=== PATIENT | female | born 1990 | race Caucasian/White ===

== ENCOUNTER 2022-07-11 09:15 | Outpatient (CLI) | payer OTHER, SELFPAY ==
--- OUTSIDE RECORDS SUMMARY | 2022-07-11 09:20 | XMS_ITS | Encounter Summary ---
:1990 Author Organization [facility] Address [address] [place] [address] Care Team Providers Name Role Phone Elsewhere, Pcp Primary Care Provider Unavailable Reason for Visit Reason Comments Medical Information Encounter Details Date Type Department Care Team Description 05/30/2022 Nurse Triage Department of [facility] Marylou Kim, [facility], Moustapha Snider, R.N. [facility], in [facility] [phone] [place] (Work) [address] [place] [address] Social History Tobacco Use Types Packs/Day Years Used Date Smoking Tobacco: Every Day Cigarettes 0.8 Smokeless Tobacco: Never Alcohol Use Standard Drinks/Week Comments Yes 12 (1 standard drink = 0.6 oz pure alcoh ol) Sex Assigned at Date Recorded Not on file documented as of 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 Miscellaneous Notes Telephone Encounter - Marylou Kim M.S.N., R.N. - 05/30/2022 8:24 AM CDT Chief Complaint / Reason for Call Patient is a 32 y.o. female calling regarding Medical Information. Assessment Concern: Patient seeks lab results. She is unable to get in her portal. Present for: Home cares tried: tried to use the portal, she was informed she had a new lab result Calling to request: lab results. The recommended disposition is The following information may be helpful. Patient was warm transferred to [facility] at the clinic for further assistance. The labs have not been reviewed. Informed patient the provider had not reviewed the results and notesaid would call with results. documented in 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 Plan of Treatment Not on filedocumented as of 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 Visit Diagnoses Not on filedocumented in 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 Additional Health Concerns Assessment Noted Time PHQ-9 Depression Total Score: 7 11/29/2015 11:32 AM CS T documented as of 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 Care Teams Corsets Salesperson Relationship Specialty Start Date End Date Elsewhere, Pcp PCP - General 05/29/19 documented as of 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
--- OUTSIDE RECORDS SUMMARY | 2022-07-11 09:20 | XMS_ITS | Encounter Summary ---
:1990 Author Organization [facility] Address [address] [place] [address] Care Team Providers Name Role Phone Elsewhere, Pcp Primary Care Provider Unavailable Reason for Visit Reason Comments Mass Pt reports 3 bumps in her la lety. Pt reports she noted them this am when she was shaving. Appointment Request (Routine) - Closed Specialty Diagnoses / Procedures Referred By Contact Refer red To Contact Family Medicine Referral ID Status Reason Start Date Expiration Date Visits Requ ested Visits Authorized [id number] Closed 02/03/2022 02/03/2023 1 1 Encounter Details Date Type Department Care Team Description 02/03/2022 Office Visit Urgent Care in [place]oustaphaMariam Sarah C, F olliculitis (Primary Dx); [place] Ryan OVALLESNMayurPMayur, Dermatitis Atopic [address] [place] [address] [place] [phone] [place] [address] Social History Tobacco Use Types Packs/Day Years Used Date Smoking Tobacco: Every Day Cigarettes 0.8 Smokeless Tobacco: Never Alcohol Use Standard Drinks/Week Comments Yes 12 (1 standard drink = 0.6 oz pure alcoh ol) Sex Assigned at Date Recorded Not on file documented as of 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 Last Filed Vital Signs Vital Sign Reading Time Taken Comments Blood Pressure 125/82 02/03/2022 6:27 PM CDT Pulse 98 02/03/2022 6:27 PM CDT Temperature 36.9 ??C (98.4 ??F) 02/03/2022 6:27 PM CDT Respiratory Rate 18 02/03/2022 6:27 PM CDT Oxygen Saturation - - Inhaled Oxygen Concentration - - Weight 135 kg (297 lb 9.9 oz) 02/03/2022 6:27 PM CDT Height - - Body Mass Index 48.35 11/25/2021 9:40 AM AED TRAINER documented in 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 Progress Notes Kaylene Becerra, CHARLETTE, C.N.P., D.N.P. - 02/03/2022 6:30 PM CDT SUBJECTIVE CHIEF COMPLAINT/REASON FOR VISIT: Mass (Pt reports 3 bumps in her labia. Pt reports she noted them this am when she was shaving.) HISTORY OF PRESENT ILLNESS: Yolanda Majano is a 31 y.o. female, presents to the clinic today for Chief Complaint Patient presents with ??? Mass Pt reports 3 bumps in her labia. Pt reports she noted them this am when she was shaving. Patient states she noticed 3 bumps on her labia this morning. The bumps have not been painful. She did have some discomfort when she tried to squeeze the bumps. She did not notice any drainage. She denies dysuria. No vaginal discharge. She denies any belly or back pain. She denies a history of herpes in the past. No history of genital warts. No known exposure to STD. Patient also reports a history of eczema. She gets eczema on her arms and legs. She has used triamcinolone cream in the past with good relief, she is requesting a refill. ALLERGIES: Reviewed and reconciled in the EMR under the allergies tab of today???s date. MEDICATIONS: Reviewed and reconciled in the EMR under the medications tab of today???s date. OBJECTIVE BP 125/82 Pulse 98 Temp 36.9 ??C Resp 18 Wt 135 kg LMP 12/10/2021 (Approximate) Comment: pt couldnt remember exact date. BMI 48.35 kg/m?? PHYSICAL EXAM: General: alert and oriented, no acute distress Heart: regular rate and rhythm without abnormal sounds. Lungs: clear to auscultation bilaterally. Abdomen: soft, flat; no masses, tenderness or organomegaly. Back: Denies CVA tenderness. Genitourinary: Exam done with HOLLIS Jeffries in the room to pharmacy manager. Area is shaved. External exam reveals follicular lesion present on the right labia majora, to similar appearing follicular lesions present on the left labia majora. No surrounding redness. No ulceration, no vesicles noted. Skin: Slightly erythematous flaky patches present in the antecubital spaces of the arms bilaterally. ASSESSMENT / PLAN Folliculitis Patient was reassured, lesions not consistent with sexually transmitted infection. Symptomatic treatments reviewed. Atopic dermatitis Typical eczema cares reviewed including skin hydration, avoidance irritant, and steroid cream. Triamcinolone cream was refilled. Signs and symptoms that would indicate the need for urgent/emergent/routine follow up reviewed. Follow up as indicated with questions, concerns, worsening symptoms, or problems. Patient/Family verbalize understanding of our plan and agree. documented in 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 Plan of Treatment Not on filedocumented as of 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 Visit Diagnoses Diagnosis Folliculitis - Primary Dermatitis Atopic documented in 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 Additional Health Concerns Assessment Noted Time PHQ-9 Depression Total Score: 7 11/29/2015 11:32 AM CS T documented as of 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 Care Teams Machine Operator Assistant Relationship Specialty Start Date End Date Elsewhere, Pcp PCP - General 05/29/19 documented as of 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
--- OUTSIDE RECORDS SUMMARY | 2022-07-11 09:20 | XMS_ITS | Encounter Summary ---
:1990 Author Organization [facility] Address [address] [place] [address] Care Team Providers Name Role Phone Elsewhere, Pcp Primary Care Provider Unavailable Encounter Details Date Type Department Care Team Description 02/04/2022 Admin Visit Urgent Care in [place], [place] [address] [place] [address] Social History Tobacco Use Types Packs/Day Years Used Date Smoking Tobacco: Every Day Cigarettes 0.8 Smokeless Tobacco: Never Alcohol Use Standard Drinks/Week Comments Yes 12 (1 standard drink = 0.6 oz pure alcoh ol) Sex Assigned at Date Recorded Not on file documented as of 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 Plan of Treatment Not on filedocumented as of 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 Visit Diagnoses Not on filedocumented in 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 Additional Health Concerns Infection Onset Date Last Indicated Resolved Time COVID19 Pending 02/04/2022 02/04/2022 02/04/2022 4:34 PM CDT Assessment Noted Time PHQ-9 Depression Total Score: 7 11/29/2015 11:32 AM CS T documented as of 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 Care Teams Director Of Rehabilitation Relationship Specialty Start Date End Date Elsewhere, Pcp PCP - General 05/29/19 documented as of 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
--- OUTSIDE RECORDS SUMMARY | 2022-07-11 09:20 | XMS_ITS | Encounter Summary ---
:1990 Author Organization [facility] Address [address] [place] [address] Care Team Providers Name Role Phone Elsewhere, Pcp Primary Care Provider Unavailable Reason for Visit Reason Comments Urinary Tract Infection Vaginosis, kidney pain left side. Appointment Request (Routine) - Closed Specialty Diagnoses / Procedures Referred By Contact Refer red To Contact Family Medicine Referral ID Status Reason Start Date Expiration Date Visits Requ ested Visits Authorized [id number] Closed 12/12/2021 12/12/2022 1 1 Encounter Details Date Type Department Care Team Description 12/12/2021 Office Visit Urgent Care in [place] Epstein Dys uria (Primary Dx); Marko Sue M.D. Vaginitis; [address] Frequency Urinary; [place] HAND Urgency Urina ry; [id number] Pain Flank [phone] Social History Tobacco Use Types Packs/Day Years Used Date Smoking Tobacco: Every Day Cigarettes 0.8 Smokeless Tobacco: Never Tobacco Cessation: Ready to Quit: No; Co unseling Given: Yes Alcohol Use Standard Drinks/Week Comments Yes 12 (1 standard drink = 0.6 oz pure alcoh ol) Sex Assigned at Date Recorded Not on file documented as of 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 Last Filed Vital Signs Vital Sign Reading Time Taken Comments Blood Pressure 137/81 12/12/2021 7:02 PM CDT Pulse 110 12/12/2021 7:02 PM CDT Temperature 36 ??C (96.8 ??F) 12/12/2021 7:02 PM CDT Respiratory Rate - - Oxygen Saturation 96% 12/12/2021 7:02 PM CDT Inhaled Oxygen Concentration - - Weight 135 kg (298 lb 8.1 oz) 12/12/2021 7:02 PM CDT Height - - Body Mass Index 48.49 11/25/2021 9:40 AM AIR BRUSH DECORATOR documented in 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 Progress Notes Terrell Carvajal M.D. - 12/12/2021 7:30 PM CDT SUBJECTIVE CHIEF COMPLAINT / REASON FOR VISIT Yolanda Majano is a 31 y.o. female who presents for evaluation of Urinary Tract Infection (Vaginosis, kidney pain left side./). HISTORY OF PRESENT ILLNESS The patient is a 31-year-old female who is here for concern of increased urinary urgency, frequency, left flank pain and abnormal vaginal discharge. Today, patient states that approximately 2 days ago she began to endorse increased urinary frequency, increased urinary urgency, abnormal vaginal discharge and left flank pain. The patient is sexually active with her boyfriend and had protected sex approximately 3 days ago. However, patient denies any associated fever, chills, night sweats, abdominal pain different from baseline or suprapubic tenderness. Additionally the patient denies any dysuria. The patient describes the abdomen vaginal dischargeas red in nature, however, denies any green or white abnormal vaginal discharge. The patient is able to tolerate oral food and fluids appropriately. Otherwise, normal urination and normal bowel movements. The patient has not needed anything for pain control at this time. The following portions of the patient's history were reviewed and updated as appropriate: allergies,current medications, family history, medical history, social history, surgical history and problem list. OBJECTIVE BP 137/81 (BP Location: Right arm, Patient Position: Sitting, Cuff Size: Regular) Pulse 110 Temp36 ??C (Temporal) Wt 135 kg SpO2 96% BMI 48.49 kg/m?? PHYSICAL EXAM General: Well developed, well nourished, no apparent distress. Heart: Regular rate and rhythm. Normal S1S2. No S3S4, murmurs, rubs or gallops appreciated. Lungs: Clear to auscultation bilaterally, without wheezes, rhonchi or crackles. Back: CVA tenderness present over the left side. No CVA tenderness on the right side. Abdomen: Soft, mildly tender globally. Genitalia: Normally developed genitalia with no external lesions or eruptions. Vagina and cervix show no lesions, inflammation, discharge or tenderness. Vaginitis panel swabs obtained. -female nurse present as janitorial account manager. ASSESSMENT / PLAN #1 Dysuria #2 Vaginitis #3 Frequency Urinary #4 Urgency Urinary #5 Pain Flank -Differential for the patient's symptoms include UTI, pyelonephritis, nephrolithiasis and vaginitis.Given there was no significant abnormal vaginal discharge on speculum exam higher on the differential includes UTI, pyelonephritis and nephrolithiasis. Urine studies were not yet obtained at the time of the visit and therefore will start treatment with cefdinir 300 mg b.i.d. for 10 days for suspected UTI versus pyelonephritis. -will follow-up with the urine studies, urine test as well as vaginitis panel. If the Trichomonas or bacterial vaginosis panel does come back positive would treat with a 7 day course of metronidazole. -if the urine studies come back negative for UTI or vaginitis then nephrolithiasis would be higher on the differential and would encourage increased oral fluid intake, straining for kidney stone as well as consideration of Flomax. -we will notify the patient tomorrow of the results and treat accordingly. -the patient was understanding and amenable to this plan. -in the meantime, the patient was advised to increase her oral fluid intake as well as use Tylenol and or ibuprofen for pain relief. - Urinalysis with Microscopic: Urine, Midstream; Future; Expected date: 12/12/2021 - Bacterial Culture, Aerobic + Susc, Urine; Future; Expected date: 12/12/2021 - Bacterial Culture, Aerobic + Susc, Urine - Urinalysis with Microscopic: Urine, Midstream - Test, POCT, Urine (lab) - Vaginitis Panel - Chlamydia / Gonorrhoeae Amplified RNA Other orders - cefdinir (OMNICEF) 300 mg capsule; Take 1 capsule (300 mg total) by mouth 2 (two) times a day before breakfast and dinner for 10 days., Starting [place] 12/12/2021, Until 12/22/2021, Normal documented in 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 Plan of Treatment Not on filedocumented as of 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 Procedures Procedure Name Priority Date/Time Associated Comments Diagnosis TEST, POCT, Routine 12/12/2021 7:56 PM Dysuria Results for this U (LAB) CDT procedure are i n the results section. VAGINITIS PANEL STAT 12/12/2021 7:21 PM Vaginitis Result s for this CDT procedure are i n the results section. CHLAMYDIA/GONORRHOEAE STAT 12/12/2021 7:21 PM Vaginitis Results for this AMPLIFIED RNA CDT procedure are in the results section. BACTERIAL CULTURE, STAT 12/12/2021 6:52 PM Dysuria Res ults for this AEROBIC + SUSC, URINE CDT proced ure are in the results section. URINALYSIS WITH STAT 12/12/2021 6:52 PM Dysuria Result s for this MICROSCOPIC CDT procedure are i n the results section. documented in 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 Results Test, POCT, Urine (lab) (12/12/2021 7:56 PM CDT) athologist Signature Negative 12/12/2021 CESILIA Test, POCT, U 8:08 PM CDT Specimen Anatomical Collection Method Collection Time Receive d Time (Source) Location / / Volume Laterality Urine (Urine, 12/12/2021 7:56 PM 12/13/19 7:59 Clean Catch) CDT PM CDT Terrell Carvajal M.D. LAB POCT ORDERABLES - DEVICE Performing Organization Address City/State/ZIP Code Phon e Number [facility]- [facility] [place], [place] [phone] [facility] [place] [address] [facility] [place] [facility]- [facility] [place] [phone] [place] [facility] [place] [address] Chlamydia / Gonorrhoeae Amplified RNA (12/12/2021 7:21 PM CDT) [facility] gist Method Time Signature Source Swab, Vagina 12/13/2021 MKTO 9:10 AM CDT Chlamydia Negative Negative 12/13/2021 MKTO trachomatis 9:10 AM CDT amplified RNA Source Swab, Vagina 12/13/2021 MKTO 9:10 AM CDT Neisseria Negative Negative 12/13/2021 MKTO gonorrhoeae 9:10 AM CDT amplified RNA Specimen Anatomical Collection Method Collection Time Receive d Time (Source) Location / / Volume Laterality Varies (Vagina) 12/12/2021 7:21 PM 2021 CDT 11:53 PM CDT Terrell Carvajal M.D. LAB MICROBIOLOGY - GENERAL O RDERABLES Performing Organization Address City/[facility]/ZIP Code Phon e Number [facility]- [facility] [place] [address] [place] [address] [address] Vaginitis Panel (12/12/2021 7:21 PM CDT) Patholo gist Method Time Signature Katie species, Negative Negative 12/12/2021 CESIL[place] DNA 8:44 PM CDT Gardnerella Negative Negative 12/12/2021 [place] vaginalis, DNA 8:44 PM CDT Trichomonas Negative Negative 12/12/2021 [place] vaginalis, DNA 8:44 PM CDT Specimen Anatomical Collection Method Collection Time Receive d Time (Source) Location / / Volume Laterality Swab (Vagina) 12/12/2021 7:21 PM 12/13/19 22 7:54 CDT PM CDT Terrell Carvajal M.D. LAB MICROBIOLOGY - GENERAL O ANA LAURA Performing Organization Address City/[facility]/ZIP Code Phon e Number [facility] [place] [place] [phone] [facility] [place] [address] [facility] [facility]- [place] [address] [place] [facility] [place] [address] (ABNORMAL) Bacterial Culture, Aerobic + Susc, Urine (12/12/2021 6:52 PM CDT) Analysis Performed At Patho logist Time Signature Urine Culture Mixed 12/14/2021 MKTO mary beth. (A) 8:46 AM CDT Specimen Anatomical Collection Method Collection Time Receive d Time (Source) Location / / Volume Laterality Urine (Urine, 12/12/2021 6:52 PM 12/13/19 22 Midstream) CDT 11:54 PM CDT Comment: Specimen Source Site: Urine Terrell Carvajal M.D. LAB MICROBIOLOGY - GENERAL O RDERABLES Performing Organization Address City/[facility]/ZIP Code Phon e Number [facility]- [facility] [place] [address] [place] [address] System [address] (ABNORMAL) Urinalysis with Microscopic: Urine, Midstream (12/12/2021 6:52 PM CDT) Analysis Performed At Patho logist Time Signature Source Urine, Urine, 12/12/2021 [place] Midstream 8:03 PM CDT Clarity Clear Clear 12/12/2021 [place] 8:03 PM CDT Color Yellow 12/12/2021 CESIILA 8:03 PM CDT Comment: ----REFERENCE VALUE---- Colorless Yellow Corinne Blood Trace (A) Negative 12/12/2021 8:03 PM CDT [place] Nitrite Negative Negative 12/12/2021 8:03 PM CDT [place] Leukocyte Esterase Trace (A) Negative 12/12/2021 8:03 PM CD T [place] Protein Negative mg/dL 12/12/2021 8:03 PM CDT [place] Comment: ----REFERENCE VALUE---- Negative Trace Glucose Negative Negative mg/dL 12/12/2021 8:03 PM CDT AL EA Ketone Negative Negative mg/dL 12/12/2021 8:03 PM CDT AL EA Bilirubin Negative Negative 12/12/2021 8:03 PM CDT CES[place] pH 5.0 5.0 - 8.0 12/12/2021 8:03 PM CDT [place] Specific [place] 1.020 1.001 - 1.035 12/12/2021 8:03 PM CDT [place] Urobilinogen 0.2 0.2 - 1.0 mg/dL 12/12/2021 8:03 PM CD T [place] White Blood Cells Occ-3 /hpf 12/12/2021 8:06 PM CDT [place] Comment: ----REFERENCE VALUE---- Males: 0-3 Females: 0-10 Unknown: 0-10 Red Blood Cells Occ-2 0 - 2 /hpf 12/12/2021 8:06 PM CDT C[place] Hyaline Casts 1-3 /lpf 12/12/2021 8:06 PM CDT BENJIE A Squamous Cells Occ-3 /hpf 12/12/2021 8:06 PM CDT AL EA Specimen Anatomical Collection Method Collection Time Receive d Time (Source) Location / / Volume Laterality Urine (Urine, 12/12/2021 6:52 PM 03/17/20 22 7:59 Midstream) CDT PM CDT Terrell Carvajal M.D. LAB URINE ORDERABLES Performing Organization Address City/State/ZIP Code Phon e Number [facility]- [facility] [place] [phone] [facility] [place] [address] [place] [facility]- [facility] [place] [phone] [place] [facility] [place] [address] documented in 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 Visit Diagnoses Diagnosis Dysuria - Primary Vaginitis Frequency Urinary Urgency Urinary Pain Flank documented in 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 Additional Health Concerns Assessment Noted Time PHQ-9 Depression Total Score: 7 11/29/2015 11:32 AM CS T documented as of 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 Care Teams Autocad Draftsman Relationship Specialty Start Date End Date Elsewhere, Pcp PCP - General 05/29/19 documented as of 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
--- OUTSIDE RECORDS SUMMARY | 2022-07-11 09:20 | XMS_ITS | Encounter Summary ---
:[address] [facility] Address [address] [place] [address] Care Team Providers Name Role Phone Elsewhere, Pcp Primary Care Provider Unavailable Reason for Visit Reason Comments ER Referral Colonoscopy Encounter Details Date Type Department Care Team Description 11/28/2021 Clinical Department of Viviana Nieto ER Referral; Communication Gastroenterology in [place], [place] [address] [place] [address] [place], [place] [phone] Social History Tobacco Use Types Packs/Day Years Used Date Smoking Tobacco: Every Day Cigarettes 0.8 Smokeless Tobacco: Never Alcohol Use Standard Drinks/Week Comments Yes 12 (1 standard drink = 0.6 oz pure alcoh ol) Sex Assigned at Date Recorded Not on file documented as of 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 Miscellaneous Notes Telephone Encounter - Iram Lind R.N. - 11/28/2021 9:49 AM DIRECTOR REACTOR PROJECTS Please see communication from 11/26/2021. General Surgery ED f/u was cancelled d/t this should be directed to the gastroenterology team rather than general surgery. CTOR REACTOR PROJECTS Telephone Encounter - Viviana Nieto R.N. - 11/28/2021 9:34 AM CST Message was left to schedule colonoscopy & GI follow up for Yolanda Majano. Routing to General Surgery team, I see that there was an ER follow up placed from [facility] for [facility] location. If appropriate to proceed with colonoscopy. Please order. CTOR REACTOR PROJECTS documented in 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 Plan of Treatment Not on filedocumented as of 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 Visit Diagnoses Not on filedocumented in 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 Additional Health Concerns Assessment Noted Time PHQ-9 Depression Total Score: 7 11/29/2015 11:32 AM CS T documented as of 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 Care Teams Ticket Agent Relationship Specialty Start Date End Date Elsewhere, Pcp PCP - General 05/29/19 documented as of 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
--- OUTSIDE RECORDS SUMMARY | 2022-07-11 09:20 | XMS_ITS | Encounter Summary ---
:1990 Author Organization [facility] Address [address] [place] [address] Care Team Providers Name Role Phone Elsewhere, Pcp Primary Care Provider Unavailable Encounter Details Date Type Department Care Team Description 05/29/2022 Hospital Encounter Department of Laboratory Puneet Pearl, Dysuria Medicine in [place], ROUND BONER, C.N.P. , R.N. [place] [address] [place] [address] [place], [place] [phone] Social History Tobacco Use Types Packs/Day Years Used Date Smoking Tobacco: Every Day Cigarettes 0.8 Smokeless Tobacco: Never Alcohol Use Standard Drinks/Week Comments Yes 12 (1 standard drink = 0.6 oz pure alcoh ol) Sex Assigned at Date Recorded Not on file documented as of 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 Medications at Time of Discharge Medication Sig Dispensed Refills Start Date End Date medroxyPROGESTERone (PROVERA) Take 10 mg by 0 10 mg tablet mouth once. documented as of 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 Plan of Treatment Not on filedocumented as of 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 Procedures Procedure Name Priority Date/Time Associated Comments Diagnosis BACTERIAL CULTURE, Routine 05/29/2022 8:14 PM Dysuria Res ults for this AEROBIC + SUSC, URINE CDT proced ure are in the results section. URINALYSIS WITH Routine 05/29/2022 8:14 PM Dysuria Result s for this MICROSCOPIC CDT procedure are i n the results section. documented in 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 Results (ABNORMAL) Bacterial Culture, Aerobic + Susc, Urine (05/29/2022 8:14 PM CDT) [facility] Method Time Signature Urine Culture Mixed 05/31/2022 MKTO microbiota (A) 8:30 AM CDT Specimen Anatomical Collection Method Collection Time Receive d Time (Source) Location / / Volume Laterality Urine (Urine, 05/29/2022 8:14 PM 05/30/20 22 Midstream) CDT 12:06 AM CDT Comment: Specimen Source Site: Urine Stacy Pearl APRN C.N.P., R.N. LAB MICROBIOLOGY - GEN ERAL ORDERABLES Performing Organization Address City/State/ZIP Code Phon e Number [facility]- [address] [place] [id number] [place] [address] [place] [address] (ABNORMAL) Urinalysis with Microscopic: Urine, Midstream (05/29/2022 8:14 PM CDT) Analysis Performed At Patho logist Time Signature Source Urine, Urine, 05/29/2022 AUST Midstream 8:23 PM CDT Clarity Clear Clear 05/29/2022 A[facility] 8:23 PM CDT Color Yellow 05/29/2022 AUST 8:23 PM CDT Comment: ----REFERENCE VALUE---- Colorless Yellow Corinne Blood Moderate (A) Negative 05/29/2022 8:23 PM CDT A[facility] Nitrite Negative Negative 05/29/2022 8:23 PM CDT [facility] Leukocyte Esterase Negative Negative 05/29/2022 8:23 PM CD T [facility] Protein Negative mg/dL 05/29/2022 8:23 PM CDT [facility] Comment: ----REFERENCE VALUE---- Negative Trace Glucose Negative Negative mg/dL 05/29/2022 8:[address] Ketone Negative Negative mg/dL 05/29/2022 8:[address] Bilirubin Negative Negative 05/29/2022 8:23 PM CDT [facility] pH 5.5 5.0 - 8.0 05/29/2022 8:23 PM CDT [facility] Specific [place] 1.021 1.001 - 1.035 05/29/2022 8:23 PM CDT [facility] Urobilinogen 0.2 0.2 - 1.0 mg/dL 05/29/2022 8:23 PM CD T AUST White Blood Cells Occ-3 /hpf 05/29/2022 8:25 PM CDT AUST Comment: ----REFERENCE VALUE---- Males: 0-3 Females: 0-10 Unknown: 0-10 Red Blood Cells Occ-2 0 - 2 /hpf 05/29/2022 8:25 PM CDT AUST Hyaline Casts 1-3 /lpf 05/29/2022 8:25 PM CDT AUS T Squamous Cells Occ-3 /hpf 05/29/2022 8:[address] Specimen Anatomical Collection Method Collection Time Receive d Time (Source) Location / / Volume Laterality Urine (Urine, 05/29/2022 8:14 PM 05/29/20 8:16 Midstream) CDT PM CDT Stacy Pearl APRN C.N.P., R.N. LAB URINE ORDERABLES Performing Organization Address City/State/ZIP Code Phon e Number [facility] [address] [place] [address] [facility] [place] [facility] - [place], [place] [id number] [place] [address] documented in 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 Visit Diagnoses Diagnosis Dysuria documented in 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 Additional Health Concerns Assessment Noted Time PHQ-9 Depression Total Score: 7 11/29/2015 11:32 AM CS T documented as of 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 Care Teams Automatic Drilling Machine Operator Relationship Specialty Start Date End Date Elsewhere, Pcp PCP - General 05/29/19 documented as of 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
--- OUTSIDE RECORDS SUMMARY | 2022-07-11 09:20 | XMS_ITS | Clinical Summary ---
:1990 Author Organization [facility] Address [address] [place] [address] Care Team Providers Name Role Phone Elsewhere, Pcp Primary Care Provider Unavailable Source Comments Patient records contain information from all sites at [facility]. For routine questions regarding patient records, call [phone] during business hours, M-F 8:00 AM - 5:00 PM Central Time. Record requests for emergency care only can be directed to [phone] at any time.[facility] Allergies Active Allergy Reactions Severity Noted Date Comments Citalopram Other (see comments) Medium 06/28/2020 Makes s uicidal thoughts increa se House Dust Mite Itching Medium 06/28/2020 Nitrofurantoin Hives High 06/28/2020 Monohyd/M-Cryst Naproxen Hives Low 06/28/2020 Medications Medication Sig Dispensed Refills Start Date End Date Status triamcinolone (KENALOG) Apply 1 60 g 0 02/03/2022 Active 0.1 % cream application topically 2 (two) times a day for 10 days. medroxyPROGESTERone Take 10 mg by 0 05/19/2022 Active (PROVERA) 10 mg tablet mouth once. metroNIDAZOLE (FLAGYL) Take 1 tablet 14 tablet 0 05/30/2022 Active 500 mg tablet (500 mg total) by mouth 2 (two) times a day. Active Problems Problem Noted Date Alcohol Moderate Or Severe Use Disorder (Dependence) U ncomplicated 06/20/2020 Depression 06/09/2019 Hip Joint Disorder Left 02/25/2018 Sprain Hip Initial Left 02/25/2018 Borderline Personality Disorder 01/27/2018 Depression Major Recurrent Moderate 08/06/2017 Lumbago With Sciatica Left Side 07/16/2017 Other Intervertebral Disc Displacement Lumbar Region 1 Other Symptoms And Signs Involving The Musculoskeletal System 07/16/2017 Anxiety Generalized Disorder 07/09/2017 Attention Deficit With Hyperactivity Disorder 11/02/19 13 Overview: ADHD - Attention deficit disorder with h yperactivity Resolved Problems Problem Noted Date Resolved Date Depression Major Recurrent 11/02/2012 11/01/2021 Overview: Depressive disorder, major, recurrent ep isode Encounters Date Type Specialty Care Team Description 06/06/2022 Clinical Family Medicine Stacy Pearl, Communicat ion; Communication CHARLETTE, C.N.P., Results R.N. 05/30/2022 Orders Only Family Medicine Rosmeary White, CHARLETTE, C.N.P., M.S.N. 05/30/2022 Clinical Family Medicine Elsewhere, Pcp Communication 05/30/2022 Nurse Triage Family Medicine Marylou Kim, Medical Information M.S.N., R.N. 05/29/2022 Office Visit Family Medicine Stacy Pearl, Dysuria (P rimary Dx); CHARLETTE, C.N.P., Bleeding Vagin al R.N. Blanca Malin, P.A.-C. 05/29/2022 Hospital Encounter Laboratory Stacy Pearl, Dysuria Medicine CHARLETTE, C.N.P., R.N. 05/29/2022 Nurse Triage Family Medicine Juanita Vance Urinary P roblem; M, R.N. Vaginal Dischar ge from Last 3 Months Immunizations Name Administration Dates Next Due 4vHPV (discontinued) 03/21/2014, 11/04/2013, 09/01/2013 DTaP (Infanrix, [employer]) 06/16/1997, 05/16/1993, 01/11/1993 , 1992, 1992 HepA Adult 11/04/2013 HepB, Unspecified 01/11/1993, 1992, 1992 Hib (HbOC) (discontinued) 01/11/1993, 1992, 1992 Influenza, Unspecified 07/09/2009, 08/04/2008, 09/05/2003 MMR 05/28/1998, 12/06/1993 OPV 06/16/1997, 06/16/1993, 1992, 1992 Td (Adult), adsorbed 05/09/2005 Td Preservative Free (TENIVAC, 03/25/2013 DECAVAC) Tdap 10/14/2012 Family History Medical History Relation Name Comments Breast cancer Aunt Paternal Hypertension Father Cancer Grandmother 1 Paternal Cancer Grandmother 2 Maternal Cervical cancer Mother Depression Mother Relation Name Status Comments Aunt Paternal Father Grandmother 1 Paternal Grandmother 2 Maternal Mother Social History Tobacco Use Types Packs/Day Years Used Date Smoking Tobacco: Every Day Cigarettes 0.8 Smokeless Tobacco: Never Tobacco Cessation: Ready to Quit: No; Co unseling Given: Yes Alcohol Use Standard Drinks/Week Comments Yes 12 (1 standard drink = 0.6 oz pure alcoh ol) Sex Assigned at Date Recorded Not on file Last Filed Vital Signs Vital Sign Reading Time Taken Comments Blood Pressure 127/84 05/29/2022 7:31 PM CDT Pulse 94 05/29/2022 7:31 PM CDT Temperature 36.2 ??C (97.2 ??F) 05/29/2022 7:31 PM CDT Respiratory Rate 18 02/03/2022 6:27 PM CDT Oxygen Saturation 96% 12/12/2021 7:02 PM CDT Inhaled Oxygen Concentration - - Weight 129 kg (283 lb 8.2 oz) 05/29/2022 7:31 PM CDT Height 167.1 cm (5' 5.79) 11/25/2021 9:40 AM MANAGER HYDRAULIC Body Mass Index 46.06 11/25/2021 9:40 AM MANAGER HYDRAULIC Plan of Treatment Health Maintenance Due Date Last Done Comments HIV Screening 1992 Hepatitis C Screening 1992 COVID-19 Vaccine (#1) 1992 Pneumococcal vaccine (0-64 years) 1998 (1 - PCV) Cervical Cancer Screening 11/19/2020 11/19/2017 (Performed elsewhere), 11/04/2013 Depression Screening (Annual 09/28/2021 PHQ-2) Influenza Vaccine (#1) 2022 07/09/2009, 07/09/2009, 07/09/2009, Additional history exists Tobacco Cessation counseling 12/12/2022 12/12/2021 DTaP,Tdap,and Td Vaccines (8 - Td 03/25/2023 03/25/2013, , or Tdap) 05/09/2005, Additional history exists Hepatitis B Vaccines Completed 01/11/1993, 1992, 1992 Procedures Procedure Name Priority Date/Time Associated Comments Diagnosis VAGINITIS PANEL Routine 05/29/2022 9:09 PM Bleeding Vaginal Re sults for this CDT procedure are i n the results section. URINALYSIS WITH Routine 05/29/2022 8:14 PM Dysuria Result s for this MICROSCOPIC CDT procedure are i n the results section. BACTERIAL CULTURE, Routine 05/29/2022 8:14 PM Dysuria Res ults for this AEROBIC + SUSC, URINE CDT proced ure are in the results section. CHLAMYDIA/GONORRHOEAE Routine 05/29/2022 7:59 PM Bleeding Vagi nal Results for this AMPLIFIED RNA CDT procedure are in the results section. from Last 3 Months Results (ABNORMAL) Vaginitis Panel (05/29/2022 9:09 PM CDT) Monitor Backlinks Method Time Signature Katie Negative Negative 05/29/2022 AUST species, DNA 10:02 PM CDT Gardnerella Positive (A) Negative 05/29/2022 AUST vaginalis, DNA 10:02 PM CDT Trichomonas Negative Negative 05/29/2022 AUST vaginalis, DNA 10:02 PM CDT Specimen Anatomical Collection Method Collection Time Receive d Time (Source) Location / / Volume Laterality Swab (Vagina) 05/29/2022 9:09 PM 05/29/20 9:09 CDT PM CDT Stacy Pearl APRN, C.N.P., R.N. LAB MICROBIOLOGY - GEN ERAL ORDERABLES Performing Organization Address City/State/ZIP Code Phon e Number [facility]- [address] [place] [address] [facility] [place] [address] [facility] [address] (ABNORMAL) Bacterial Culture, Aerobic + Susc, Urine (05/29/2022 8:14 PM CDT) Monitor Backlinks Method Time Signature Urine Culture Mixed 05/31/2022 MKTO microbiota (A) 8:30 AM CDT Specimen Anatomical Collection Method Collection Time Receive d Time (Source) Location / / Volume Laterality Urine (Urine, 05/29/2022 8:14 PM 05/30/20 22 Midstream) CDT 12:06 AM CDT Comment: Specimen Source Site: Urine Stacy Pacheco Dae OVALLES C.N.P., R.N. LAB MICROBIOLOGY - GEN ERAL ORDERABLES Performing Organization Address City/State/ZIP Code Phon e Number [facility]- [address] [place] [id number] [facility] [address] System in [place] [address] [place] [address] (ABNORMAL) Urinalysis with Microscopic: Urine, Midstream (05/29/2022 8:14 PM CDT) Analysis [facility]formed At [facility] Time Signature Source Urine, Urine, 05/29/2022 AUST [...] 8.0 05/29/2022 8:23 PM CDT AUST Specific [place] 1.021 1.001 - 1.035 05/29/2022 8:23 PM [...] 8:16 Midstream) CDT PM CDT Stacy Pearl APRN, Brenden.N.P., R.N. LAB URINE ORDERABLES Performing Organization Address City/[facility]/ZIP Code Phon e Number [facility]- [address] [place] [address] [facility] [place], [place] [id number] [place] [address] Chlamydia / Gonorrhoeae Amplified RNA (05/29/2022 7:59 PM CDT) [facility] Method Time Signature Source Swab, Vagina 05/30/2022 MKTO 10:19 AM CDT Chlamydia Negative Negative 05/30/2022 MKTO trachomatis 10:19 AM CDT amplified RNA Source Swab, Vagina 05/30/2022 MKTO 10:20 AM CDT Neisseria Negative Negative 05/30/2022 MKTO gonorrhoeae 10:20 AM CDT amplified RNA Specimen Anatomical Collection Method Collection Time Receive d Time (Source) Location / / Volume Laterality Varies (Vagina) 05/29/2022 7:59 PM 2021 CDT 12:06 AM CDT Stacy Pearl APRN, Brenden.N.P., R.N. LAB MICROBIOLOGY - GEN ERAL ORDERABLES Performing Organization Address City/[facility]/ZIP Code Phon e Number [facility]- [address] [place] [id number] [place] [address] from Last 3 Months Insurance Payer Benefit Plan / Subscriber ID Effective Phone Address T ype Group Dates [employer] TRA[employer] [id number] 2017-Pre [address] Indemn ity INSURANCE INSURANCE sent [id number] [place] [address] [facility] [id number] 2022-Pres [address] Medicaid HMO HEALTH [place] CARE ent [address] [place] [id number] Care Teams Global Marketing Intern Relationship Specialty Start Date End Date Elsewhere, Pcp PCP - General 05/29/19
--- OUTSIDE RECORDS SUMMARY | 2022-07-11 09:20 | XMS_ITS | Encounter Summary ---
:1990 Author Organization [facility] Address [address] [place] [address] Care Team Providers Name Role Phone Elsewhere, Pcp Primary Care Provider Unavailable Reason for Visit Reason Comments Abdominal Pain Constipation Encounter Details Date Type Department Care Team Description 11/28/2021 Nurse Triage NURSE TRIAGE Eva Banegas, Abdomin al Pain; R.N. Constipation [address] [place] [address] (Wo rk) Social History Tobacco Use Types Packs/Day Years Used Date Smoking Tobacco: Every Day Cigarettes 0.8 Smokeless Tobacco: Never Alcohol Use Standard Drinks/Week Comments Yes 12 (1 standard drink = 0.6 oz pure alcoh ol) Sex Assigned at Date Recorded Not on file documented as of 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 Miscellaneous Notes Telephone Encounter - Eva Banegas, R.N. - 11/28/2021 8:46 AM CST Chief Complaint / Reason for Call Patient is a 31 y.o. female calling regarding Abdominal Pain and Constipation. Assessment Concern: Reports sever left lower abdominal pain for 2 weeks ago and diarrhea. Now constipated and last BM 4 daws ago. Has headaches, dizziness, nausea and vomiting. Has been seen a couple times for this. Did a CT and is due for an ultra sound tomorrow in [place]. Also a colonoscopy ordered for Moustapha or Bobby Irving but not scheduled. Negative covid 11/25 He reports 8/10 abdominal pain. yesterday. Denies fever Present for: 2 weeks Home cares tried: Has not tried anything for constipation since had diarrhea and then the abdominal pain has been since before any bowel changes. Calling to request: Follow up appointment The recommended disposition is See a health care provider within 4 hours. Patient was warm transferred to [place] at the clinic for further assistance. Reason for Disposition ??? [1] Vomiting AND [2] abdomen looks much more swollen than usual Protocols used: ABDOMINAL PAIN - [id number] Care Advice Patient/Caregiver understands and will follow care advice?: Yes, able to teach back NOTHING BY MOUTH: * Do not eat or drink anything for now. REST: * Lie down and rest. * Do this until seen. CALL BACK IF: * You become worse. IRATORY MANAGER documented in 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 Plan of Treatment Not on filedocumented as of 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 Visit Diagnoses Not on filedocumented in 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 Additional Health Concerns Assessment Noted Time PHQ-9 Depression Total Score: 7 11/29/2015 11:32 AM CS T documented as of 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 Care Teams Political Research Scientist Relationship Specialty Start Date End Date Elsewhere, Pcp PCP - General 05/29/19 documented as of 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
--- OUTSIDE RECORDS SUMMARY | 2022-07-11 09:20 | XMS_ITS | Encounter Summary ---
:1990 Author Organization [facility] Address [address] [place] [address] Care Team Providers Name Role Phone Elsewhere, Pcp Primary Care Provider Unavailable Reason for Visit Reason Comments Urinary Tract Infection Vaginitis/Bacterial Vaginosis COVID Nurse Line Encounter Details Date Type Department Care Team Description 12/12/2021 Nurse Triage Department of [facility] Soniya Cervantes, [facility] Clinic, in [place], [facility] [address] [facility] Vaginitis/Bacterial [place], [place] Vaginosis; COVID Nurse [address] [place] [phone] [place] [address] [phone] Social History Tobacco Use Types Packs/Day Years Used Date Smoking Tobacco: Every Day Cigarettes 0.8 Smokeless Tobacco: Never Alcohol Use Standard Drinks/Week Comments Yes 12 (1 standard drink = 0.6 oz pure alcoh ol) Sex Assigned at Date Recorded Not on file documented as of 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 Miscellaneous Notes Telephone Encounter - Soniya Cervantes, RMayurN. - 12/12/2021 4:39 PM CDT Chief Complaint / Reason for Call Patient is a 31 y.o. female calling regarding Urinary Tract Infection, Vaginitis/Bacterial Vaginosis, and COVID Nurse Line. Assessment Concern: Vaginal discharge with a red tinge and slight odor. Patient also says her urine is dark in color and she has intermittent left flank pain. Denies burning with urination, frequency or urgency. Denies fever. Present for: 2 days Home cares tried: None Calling to request: Recommendations The recommended disposition is See a health care provider within 24 hours. Patient was warm transferred to [facility] at the clinic for further assistance. Reason for Disposition ??? Side (flank) or lower back pain present Protocols used: URINARY [id number] Care Advice Patient/Caregiver understands and will follow care advice?: Yes, able to teach back CARE ADVICE given per Urinary Symptoms (Adult) guideline. SEE PCP WITHIN 24 HOURS: PAIN MEDICINES: * For pain relief, you can take either acetaminophen, ibuprofen, or naproxen. * They are dbbz-pog-tmprckn (OTC) pain drugs. You can buy them at the drugstore. * ACETAMINOPHEN - REGULAR STRENGTH TYLENOL: Take 650 mg (two 325 mg pills) by mouth every 4 to 6 hours as needed. Each Regular Strength Tylenol pill has 325 mg of acetaminophen. The most you should take each day is 3,250 mg (10 pills a day). * ACETAMINOPHEN - EXTRA STRENGTH TYLENOL: Take 1,000 mg (two 500 mg pills) every 8 hours as needed. Each Extra Strength Tylenol pill has 500 mg of acetaminophen. The most you should take each day is 3,000 mg (6 pills a day). * IBUPROFEN (E.G., MOTRIN, ADVIL): Take 400 mg (two 200 mg pills) by mouth every 6 hours. The most you should take each day is 1,200 mg (six 200 mg pills), unless your doctor has told you to take more. * NAPROXEN (E.G., ALEVE): Take 220 mg (one 220 mg pill) by mouth every 8 to 12 hours as needed. You may take 440 mg (two 220 mg pills) for your first dose. The most you should take each day is 660 mg (three 220 mg pills a day), unless your doctor has told you to take more. PAIN MEDICINES - EXTRA NOTES AND WARNINGS: * Use the lowest amount of medicine that makes your pain better. * Acetaminophen is thought to be safer than ibuprofen or naproxen in people over 65 years old. Acetaminophen is in many OTC and prescription medicines. It might be in more than one medicine that you are taking. You need to be careful and not take an overdose. An acetaminophen overdose can hurt the liver. * [employer], the company that makes Tylenol, has different dosage instructions for Tylenol in [place] and the [place]. In [place], the maximum recommended dose per day is 4,000 mg or twelve Regular-Strength (325 mg) pills. In the [place], the maximum dose per day is ten Regular-Strength (325 mg) pills. * [employer], the company that makes Aleve, has different dosage instructions for Aleve in [place] and [place]. In [place], the maximum recommended dose per day is 440 mg (2 pills or caplets). In the [place], the maximum dose per day is 660 mg (3 pills or caplets). * CAUTION: Do not take acetaminophen if you have liver disease. * CAUTION: Do not take ibuprofen or naproxen if you have stomach problems, kidney disease, are , or have been told by your doctor to avoid this type of anti-inflammatory drug. Do not take ibuprofen or naproxen for more than 7 days without consulting your doctor. * Before taking any medicine, read all the instructions on the package. CALL BACK IF: * Fever occurs * Unable to urinate and bladder feels full * You become worse. COVID-19 Nurse Line Screening ASSESSMENT Initial Screening Pathway Select appropriate pathway: : Adult In the last 48 hours, have you had a fever* OR symptoms that are unrelated to a preexisting illness?: No symptoms noted (Continue Screening) COVID Asymptomatic Screening Have you had close contact* with a person who has tested positive with COVID-19 in the past 14 days?: No (Continue Screening) Have you tested positive for COVID-19 in the last 90 days?: No (Continue Screening) Have you been advised to undergo testing or are you requesting testing?: No, testing for COVID-19 isnot indicated (End Screening) Testing Recommendation Endpoint Is testing recommended? : Not recommended to test Further Triage Needs Any further triage needs? : Yes, transferring for appointment scheduling assistance. PLAN Endpoint recommendation: Testing not indicated at this time Standard Care Points -Get a COVID -19 vaccine as soon as you can if not fully vaccinated. -Wash hands frequently with soap and water, use hand biomedical equipment tech if soap and water aren't available. -Wear a mask over your nose and mouth to help protect yourself and others if not fully vaccinated and having no symptoms -Stay 6 feet between yourself and others who don't live with you. -Avoid crowds and poorly ventilated indoor spaces. -Seek emergent care if any of the following occur Trouble breathing Bluish lips or face Persistent pain or pressure in the chest New confusion or inability to rouse. -Notify your regular care provider of any new or worsening symptoms. Asymptomatic without exposure Carepoints: Testing is not recommended at this time. If you become symptomatic, please call back for additional screening. Education: Patient/caregiver able to teach back Patient agreeable to plan of care: Yes The following references were used: [facility] novel coronavirus (COVID- 19) resources Nursing judgement documented in 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 Plan of Treatment Not on filedocumented as of 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 Visit Diagnoses Not on filedocumented in 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 Additional Health Concerns Assessment Noted Time PHQ-9 Depression Total Score: 7 11/29/2015 11:32 AM CS T documented as of 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 Care Teams Heavy Equipment Technician Relationship Specialty Start Date End Date Elsewhere, Pcp PCP - General 05/29/19 documented as of 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
--- OUTSIDE RECORDS SUMMARY | 2022-07-11 09:20 | XMS_ITS | Encounter Summary ---
:1990 Author Organization [facility] Address [address] [place] [address] Care Team Providers Name Role Phone Elsewhere, Pcp Primary Care Provider Unavailable Reason for Visit Reason Comments uti symptoms Appointment Request (Routine) - Closed Specialty Diagnoses / Procedures Referred By Contact Refer red To Contact Family Medicine Referral ID Status Reason Start Date Expiration Date Visits Requ ested Visits Authorized [id number] Closed 05/29/2022 05/29/2023 1 1 Encounter Details Date Type Department Care Team Description 05/29/2022 Office Visit Department of Family Stacy Pearl, CHARLETTE, C.N.P., R.N. [address] [place] [id number] Dysuria (Primary Dx); Medicine, [place] Blanca Malin, P.A.-C. [address] [place] [id number] [facility], in [place], [place] [address] [place] [address] Social History Tobacco Use Types Packs/Day Years [...] ??F) 05/29/2022 7:31 PM CDT Respiratory Rate - - Oxygen Saturation - - Inhaled Oxygen Concentration - - Weight 129 kg (283 lb 8.2 oz) 05/29/2022 7:31 PM CDT Height - - Body Mass Index 46.06 11/25/2021 9:40 AM MILK RUNNER documented in 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 Progress Notes Stacy Pearl APRN, C.N.P., R.N. - 05/29/2022 7:30 PM CDT SUBJECTIVE CHIEF COMPLAINT Yolanda Majano is a 32 y.o. female who presents to the clinic for dysuria, pelvic discomfort. HISTORY OF PRESENT ILLNESS 32-year-old female presents today for evaluation of dysuria, pressure and pain in the pelvic area, abnormal vaginal bleeding. States she is currently on Provera, this was started because she had such heavy periods. States she was on Depo injections from age 16 up until the last year, she is not sure if the pelvic pressure and pain she is currently having is due to the abnormal vaginal bleeding, or ifit is normal period pain. She also has noted vaginal odor, no unusual vaginal discharge or itching. No lesions. Denies any fever chills. Does have history of UTIs and bacterial vaginosis. Also requesting testing for gonorrhea and chlamydia. Partner is not having any symptoms but she wants to be safe. The following portions of the patient's history were reviewed and updated as appropriate: allergies,current medications, family history, medical history, social history, surgical history and problem list. Allergies Allergen Reactions Macrobid [Nitrofurantoin Monohyd/M-Cryst] Hives Celexa [Citalopram] Other (see comments) Makes suicidal thoughts increase House Dust Mite Itching Naproxen Hives Constitutional: - Negative for fever. Genitourinary: Positive for abnormal vaginal bleeding and pain with urination. All other systems reviewed and are negative. OBJECTIVE Vitals: 05/29/22 193 BP: 127/84 Patient Position: Sitting Pulse: 94 Temp: 36.2 ??C Weight: 129 kg TempSrc: Temporal Body mass index is 46.06 kg/m??. Vitals reviewed. Exam conducted with a surveillance analyst present. Constitutional General: She is not in acute distress. Appearance: Normal appearance. Abdominal Tenderness: There is no abdominal tenderness. There is no right CVA tenderness or left CVA tenderness. Genitourinary Exam position: Lithotomy position. Vagina: Vaginal discharge present. Uterus: Normal. Adnexa: Right adnexa normal and left adnexa normal. Comments: Small amount of blood in the vaginal vault. Skin General: Skin is warm and dry. Neurological Mental Status: She is alert. ASSESSMENT / PLAN #1 Dysuria #2 Bleeding Vaginal Collected swabs for vaginitis panel and GC chlamydia. Also ordered UA with urine culture. Results will be called when available and patient will be treated accordingly. All questions were answered. MEDICATION CHANGES TODAY: New Medications Ordered This Visit Medications medroxyPROGESTERone (PROVERA) 10 mg tablet Sig: Take 10 mg by mouth once. There are no discontinued medications. Ready to learn, no apparent learning barriers were identified; learning preferences include listening. Explained diagnosis and treatment plan; patient/child/newspaper library manager expressed understanding of the content. documented in 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 Plan of Treatment Not on filedocumented as of 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 Procedures Procedure Name Priority Date/Time Associated Diagnosis Comme nts VAGINITIS PANEL Routine 05/29/2022 9:09 PM Bleeding Vaginal Re sults for this CDT procedure are i n the results section. CHLAMYDIA/GONORRHOE Routine 05/29/2022 7:59 PM Bleeding Vagina l Results for this AE AMPLIFIED RNA CDT procedure a re in the results section. documented in 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 Results (ABNORMAL) Vaginitis Panel (05/29/2022 9:09 PM CDT) [facility] gist Method Time Signature Katie Negative Negative 05/29/2022 [...] Organization Address City/State/ZIP Code Phon e Number [facility]- [address] [place] [address] [facility] [place] [address] [facility] [address] (ABNORMAL) Bacterial Culture, Aerobic + Susc, Urine (05/29/2022 8:14 PM CDT) [facility] Method Time Signature Urine Culture Mixed 05/31/2022 [facility] microbiota (A) 8:30 AM CDT Specimen Anatomical Collection Method Collection Time Receive d Time (Source) Location / / Volume Laterality Urine (Urine, 05/29/2022 8:14 PM 05/30/20 22 Midstream) CDT 12:06 AM CDT Comment: Specimen Source Site: Urine Ryan Seo APRNNPatel, R.N. LAB MICROBIOLOGY - GEN ERAL ORDERABLES Performing Organization Address City/[facility]/ZIP [facility] [place] Phon e Number [facility]- [address] [place] [address] [place] [address] System in [place] [address] [place] [address] (ABNORMAL) Urinalysis with Microscopic: Urine, Midstream (05/29/2022 8:14 PM CDT) Analysis Performed At [facility] logist Time Signature Source Urine, Urine, 05/29/2022 [...] 05/29/2022 8:23 PM CDT AUST Specific [place] 1.021 1.001 - 1.035 05/29/2022 8:23 PM [...] Midstream) CDT PM CDT Stacy Pearl APRN, C.N.P., R.N. LAB URINE ORDERABLES Performing Organization Address City/State/ZIP Code Phon e Number [facility]- [address] [place], [place] [id number] [place] [address] LAB AUST [place] [facility] - [place], [place] [id number] [place] [address] Chlamydia / Gonorrhoeae Amplified RNA (05/29/2022 7:59 PM CDT) [facility] gist Method Time Signature Source Swab, Vagina 05/30/2022 [...] CDT 12:06 AM CDT Stacy Pearl APRN, C.N.P., R.N. LAB MICROBIOLOGY - GEN ERAL ORDERABLES Performing Organization Address City/State/ZIP Code Phon e Number [facility]- [address] [place] [address] [place] [address] System in [place] [address] [facility] documented in 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 Visit Diagnoses Diagnosis Dysuria - Primary Bleeding Vaginal documented in 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 Additional Health Concerns Assessment Noted Time PHQ-9 Depression Total Score: 7 11/29/2015 11:32 AM CS T documented as of 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 Care Teams Manager Float Relationship Specialty Start Date End Date Elsewhere, Pcp PCP - General 05/29/19 documented as of 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
--- OUTSIDE RECORDS SUMMARY | 2022-07-11 09:20 | XMS_ITS | Encounter Summary ---
:1990 Author Organization [facility] Address [address] [place] [address] Care Team Providers Name Role Phone Elsewhere, Pcp Primary Care Provider Unavailable Reason for Visit Reason Comments Mass Encounter Details Date Type Department Care Team Description 02/03/2022 Nurse Triage Department of [facility] Eric Vance R.N. [facility] Medicine, [facility], (Wo rk) in [place], [place] [address] [place] [address] Social History Tobacco Use Types Packs/Day Years Used Date Smoking Tobacco: Every Day Cigarettes 0.8 Smokeless Tobacco: Never Alcohol Use Standard Drinks/Week Comments Yes 12 (1 standard drink = 0.6 oz pure alcoh ol) Sex Assigned at Date Recorded Not on file documented as of 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 Miscellaneous Notes Telephone Encounter - Juanita Vance, R.N. - 02/03/2022 12:24 PM CDT COVID-19 Nurse Line Screening ASSESSMENT Initial Screening [...] undergo testing or are you requesting testing?: Yes, COVID-19 testing is indicated (End Screening) Testing Recommendation Endpoint Is testing recommended? : Recommended to test Further Triage Needs Any further triage needs? : No further concerns noted. PLAN Endpoint recommendation: Per patient request, testing indicated for Other, sent to [facility] [place] located at [address] An appointment is required for testing, please call [phone] Thursday-Thursday 7am to 7:30pm and Thursday & Thursday 9am to 4pm to schedule an appointment. Testing hours areMon-Thu & Thu 8am-4:30pm and Thu & 8am-12pm. You can also schedule via your Patient [employer] account., Please avoid using public transportation per CDC recommendation. If you do nothave personal transportation please self-quarantine until a personal transportation option is available. Standard Care Points -Get a COVID -19 vaccine as soon as you can if not fully vaccinated. -Wash hands frequently with soap and water, use hand chief port director if soap and water aren't available. -Wear [...] or worsening symptoms. Asymptomatic without exposure Carepoints: If your COVID-19 result is negative and you become symptomatic consider retesting after 72 hours. Education: Patient/caregiver able to teach back Patient agreeable to plan of care: Yes The following references were used: [facility] novel coronavirus (COVID- 19) resources Telephone Encounter - Juanita Vance R.N. - 02/03/2022 12:13 PM CDT Chief Complaint / Reason for Call Patient is a 31 y.o. female calling regarding Mass. Assessment Concern: Patient experience three lump on vulva area. The lumps are painful rating 2/10 constant.Patient unsure if area has redness. No itchiness noted. No change in vaginal discharge. Present for: 02/03/22 Home cares tried: Clean area. Calling to request: Appointment The recommended disposition is See a health care provider within 3 days. Patient was warm transferred to [facility] at the clinic for further assistance. Reason for Disposition ??? Tender lump (swelling or ball) at vaginal opening Protocols used: VULVAR [id number]-[id number]-MV Care Advice Patient/Caregiver understands and will follow care advice?: Yes, able to teach back SEE PCP WITHIN 24 HOURS: * IF OFFICE WILL BE OPEN: You need to be examined within the next 24 hours. Call your doctor (or WHEEL PRESSER/PA) when the office opens and make an appointment. * IF OFFICE WILL BE CLOSED: You need to be seen within the next 24 hours. A clinic or an urgent carecenter is often a good source of care if your doctor's office is closed or you can't get an appointment. * IF PATIENT HAS NO PCP: Refer patient to a clinic or urgent care center. Also try to help caller find a PCP for future care. NOTE TO TRIAGER: * Use nurse judgment to select the most appropriate source of care. * Consider both the urgency of the patient's symptoms AND what resources may be needed to evaluate and manage the patient. PAIN MEDICINES: * For pain relief, you can take either acetaminophen, ibuprofen, or naproxen. * They are avbx-uku-mmzrlxu (OTC) pain drugs. You can buy them [...] doctor has told you to take more. CALL BACK IF: * Severe pain occurs * Fever occurs * You become worse. CARE ADVICE given per Skin Swelling or Lump (Adult) guideline. PAIN MEDICINES - EXTRA NOTES AND WARNINGS: [...] acetaminophen overdose can hurt the liver. * [employer], the company that makes Tylenol, has different dosage instructions for Tylenol in [place] and the [place]. In [place], the maximum recommended dose per day is 4,000 mg or twelve Regular-Strength (325 mg) pills. In the [place], the maximum dose per day is ten Regular-Strength (325 mg) pills. * [employer], the company that makes Aleve, has different dosage instructions for Aleve in [place] [facility]. In [place], the maximum recommended dose per day is 440 mg (2 pills or caplets). In the [place], the maximum dose per day is [...] read all the instructions on the package. documented in 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 Plan of Treatment Not on filedocumented as of 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 Visit Diagnoses Not on filedocumented in 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 Additional Health Concerns Assessment Noted Time PHQ-9 Depression Total Score: 7 11/29/2015 11:32 AM CS T documented as of 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 Care Teams Medical Laboratory Assistant Relationship Specialty Start Date End Date Elsewhere, Pcp PCP - General 05/29/19 documented as of 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
--- OUTSIDE RECORDS SUMMARY | 2022-07-11 09:20 | XMS_ITS | Encounter Summary ---
:1990 Author Organization [facility] Address [address] [place] [address] Care Team Providers Name Role Phone Elsewhere, Pcp Primary Care Provider Unavailable Reason for Visit Reason Comments Urinary Problem Vaginal Discharge Encounter Details Date Type Department Care Team Description 05/29/2022 Nurse Triage Department of Family Juanita Vance U rinary Problem; Medicine, [facility], in [place], [place] [address] [place] [address] Social History Tobacco Use Types Packs/Day Years Used Date Smoking Tobacco: Every Day Cigarettes 0.8 Smokeless Tobacco: Never Alcohol Use Standard Drinks/Week Comments Yes 12 (1 standard drink = 0.6 oz pure alcoh ol) Sex Assigned at Date Recorded Not on file documented as of 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 Miscellaneous Notes Telephone Encounter - Juanita Vance, R.N. - 05/29/2022 4:49 PM CDT Chief Complaint / Reason for Call Patient is a 32 y.o. female calling regarding Urinary Problem and Vaginal Discharge. Assessment Concern: Patient worried about possible UTI and STD. Patient having lower pelvic pain when urinatingon and off rating 3/10. Along with foul smelling vaginal discharge and consistency. No fever or flank pain noted. Present for: 05/28/22 Home cares tried: fluids, rest Calling to request: appointment The recommended disposition is See a health care provider within 24 hours. Patient was warm transferred to [place] at the clinic for further assistance. Reason for Disposition Unusual vaginal discharge (e.g., bad smelling, yellow, green, or foamy-white) Protocols used: Urination Pain - Qjlbno-GOEMG-ML Care Advice Patient/Caregiver understands and will follow care advice?: Yes, able to teach back SEE PCP WITHIN 24 HOURS: * IF OFFICE WILL BE OPEN: You need to be examined within the next 24 hours. Call your doctor (or RED HAT LINUX ENGINEER/PA) when the office opens and make an [...] needed to evaluate and manage the patient. AVOID SEXUAL INTERCOURSE: * Avoid sexual intercourse or be sure to use a condom until the problem has been diagnosed and treated. DRINK EXTRA FLUIDS: * Drink extra fluids. * Drink 8 to 10 cups (1,800 to 2,400 ml) of liquids a day. * Reason: This will water-down your urine and make it less painful to pass. If there is an infection, this will help wash out the germs from your bladder. DRINK EXTRA FLUIDS - EXTRA NOTES AND WARNINGS: * Increased fluid intake may be contraindicated in adults with renal failure or heart failure. * Discuss with your doctor (or RED HAT LINUX ENGINEER/PA). WARM SALINE SITZ BATHS - TWICE DAILY FOR URINATION PAIN: * Sit in a warm sitz bath for 20 minutes twice a day. This will decrease pain and irritation, keep the area clean, and help with healing. * Afterwards, pat area dry with unscented toilet paper. WARM SALINE SITZ BATH - HOW TO MAKE A SITZ BATH: * Here is how you can make a saline sitz bath. * Fill the tub with warm water until it is 3 to 4 inches (7 to 10 cm) deep. * Add 1/4 cup (80 g) of table salt or baking soda to a tub of warm water. Stir the water until it dissolves. TEST, WHEN IN DOUBT: * If there is a chance that you might be , use a urine test. * You can buy a test at the [employer]. * It works best if you test your first urine in the morning. * Call back if you are . * Follow the instructions included in the package. CALL BACK IF: * Fever or back pain occurs * You become worse CARE ADVICE given per Urination Pain - Female (Adult) guideline. documented in 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 Plan of Treatment Not on filedocumented as of 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 Visit Diagnoses Not on filedocumented in 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 Additional Health Concerns Assessment Noted Time PHQ-9 Depression Total Score: 7 11/29/2015 11:32 AM CS T documented as of 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 Care Teams Medical Center Manager Relationship Specialty Start Date End Date Elsewhere, Pcp PCP - General 05/29/19 documented as of 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
--- OUTSIDE RECORDS SUMMARY | 2022-07-11 09:20 | XMS_ITS | Encounter Summary ---
:1990 Author Organization [facility] Address [address] [place] [address] Care Team Providers Name Role Phone Elsewhere, Pcp Primary Care Provider Unavailable Encounter Details Date Type Department Care Team Description 05/30/2022 Orders Only Department of Family Rosemary White AP RN, Medicine, [facility], in [place], [place] [address] [place] [address] [place] [address] [place] [address] [phone] Social History Tobacco Use Types Packs/Day Years [...] documented as of 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 Care Teams Orchid Transplanter Relationship Specialty Start Date End Date Elsewhere, Pcp PCP - General 05/29/19 documented as of 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
--- OUTSIDE RECORDS SUMMARY | 2022-07-11 09:20 | XMS_ITS | Encounter Summary ---
:1990 Author Organization [facility] Address [address] [place] [address] Care Team Providers Name Role Phone Elsewhere, Pcp Primary Care Provider Unavailable Reason for Visit Reason Onset Date Comments Outpatient COVID-19 Testing 02/04/2022 Encounter Details Date Type Department Care Team Description 02/04/2022 External Outreach Department of Delfino Zamora Contact With And Orthopedic Surgery Álvaro LMayurPMayurNMayur (Suspected) Exposure in [place], [place] [address] [place] To COVID-19 (Primary [address] [place], [place] Dx) [place] [phone] Social History Tobacco Use Types Packs/Day Years Used Date Smoking Tobacco: Every Day Cigarettes 0.8 Smokeless Tobacco: Never Alcohol Use Standard Drinks/Week Comments Yes 12 (1 standard drink = 0.6 oz pure alcoh ol) Sex Assigned at Date Recorded Not on file documented as of 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 Progress Notes Delfino Zamora L.PDacia. - 02/04/2022 1:41 PM CDT Encounter created for COVID-19 screening. documented in 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 Plan of Treatment Not on filedocumented as of 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 Procedures Procedure Name Priority Date/Time Associated Comments Diagnosis SARS CORONAVIRUS 2, Routine 02/04/2022 4:10 PM Re sults for this PCR, V CDT procedure are i n the results section. documented in 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 Results SARS Coronavirus 2, PCR, V (02/04/2022 4:10 PM CDT) [facility] Method Time Signature SARS-Coronavi Undetected Undetected 02/04/2022 [facility] jeanie-2, PCR 5:30 PM CDT Comment: SARS-CoV-2 RNA absent. ?? ----ADDITIONAL INFORMATION---- This RT-PCR test using the Xpert Xpress SARS-CoV-2/Flu/RSV assay ([employer] performed on the [employer] rt DX systems has received Emergency Use Authorization (EU A) by the U.S. Food and Drug Administration. Performanc e characteristics were verified by [facility] inic in a manner consistent with CLIA requirements . Fact sheets for this Emergency Use Autho rization (EUA) assay can be found at the following link s: For Healthcare Providers: https://www.fda.gov/media/619894/downloa d For Patients: https://www.fda.gov/media/355375/downloa d Specimen Source Nasopharyngeal Swab 02/04/2022 4:3 3 PM CDT [facility] Specimen Anatomical Collection Method Collection Time Receive d Time (Source) Location / / Volume Laterality Varies 02/04/2022 4:10 PM 4:33 CDT PM CDT Stacy Pearl APRN C.N.P., R.N. LAB MICROBIOLOGY - GEN ERAL ORDERABLES Performing Organization Address City/State/ZIP Code Phon e Number [facility]- [address] [place] [address] [place] [facility] [place], [place] [phone] [place] [address] documented in 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 Visit Diagnoses Diagnosis Contact With And (Suspected) Exposure To COVID-19 - Primary documented in 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 Additional Health Concerns Infection Onset Date Last Indicated Resolved Time COVID19 Pending 02/04/2022 02/04/2022 02/04/2022 4:34 PM CDT COVID19 Pending 02/04/2022 02/04/2022 02/04/2022 5:30 PM CDT Assessment Noted Time PHQ-9 Depression Total Score: 7 11/29/2015 11:32 AM CS T documented as of 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 Care Teams Department Head College Or University Relationship Specialty Start Date End Date Elsewhere, Pcp PCP - General 05/29/19 documented as of 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
--- OUTSIDE RECORDS SUMMARY | 2022-07-11 09:20 | XMS_ITS | Encounter Summary ---
:1990 Author Organization [facility] Address [address] [place] [address] Care Team Providers Name Role Phone Elsewhere, Pcp Primary Care Provider Unavailable Encounter Details Date Type Department Care Team Description 11/26/2021 Clinical Communication Division of Trauma Preschedulin g, Critical Care and Provider General Surgery in [place], [place] [address] [place] [phone] Social History Tobacco Use Types Packs/Day Years Used Date Smoking Tobacco: Every Day Cigarettes 0.8 Smokeless Tobacco: Never Alcohol Use Standard Drinks/Week Comments Yes 12 (1 standard drink = 0.6 oz pure alcoh ol) Sex Assigned at Date Recorded Not on file documented as of 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 Miscellaneous Notes Telephone Encounter - Melva Hemphill - 11/26/2021 7:[address] Paul, A POST ED VISIT was ordered and sent to the Trauma Critical Care/General Surgery queue for this patient who possibly needs a colonoscopy and work up for inflammatory bowel disease. This was ordered [facility] so couldn't be used for scheduling in [place]. Also this should be directed to Gas troenterology rather than General Surgery. Can you please reissue an order and send to GI? Thank youvery much! EMIC GUIDANCE SPECIALIST documented in 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 Plan of Treatment Not on filedocumented as of 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 Visit Diagnoses Not on filedocumented in 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 Additional Health Concerns Assessment Noted Time PHQ-9 Depression Total Score: 7 11/29/2015 11:32 AM CS T documented as of 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 Care Teams Ribbon Blockmaker Relationship Specialty Start Date End Date Elsewhere, Pcp PCP - General 05/29/19 documented as of 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
--- OUTSIDE RECORDS SUMMARY | 2022-07-11 09:21 | XMS_ITS | Encounter Summary ---
:1990 Author Organization [facility] Address [address] [place] [address] Care Team Providers Name Role Phone Elsewhere, Pcp Primary Care Provider Unavailable Reason for Visit Reason Comments Communication Questions Encounter Details Date Type Department Care Team Description 10/17/2021 Clinical Department of Flor Mcdonald Communication Obstetrics and Alize Sanz (Questions) Gynecology in [phone] [place], (Work) [address] [address] Social History Tobacco Use Types Packs/Day Years Used Date Smoking Tobacco: Every Day Smokeless Tobacco: Never Alcohol Use Standard Drinks/Week Comments Yes 30 (1 standard drink = 0.6 oz pure drink s 10- 16 ounce cans of beer alcohol) 2-3 days a week Alcohol Habits Answer Date Recorded How often do you have a drink Not asked containing alcohol? How many drinks containing alcohol do Not asked you have on a typical day when you are drinking? How often do you have six or more Not asked drinks on one occasion? Comment: drinks 10- 16 ounce cans of beer 020 2-3 days a week Sex Assigned at Date Recorded Not on file documented as of 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 Miscellaneous Notes Telephone Encounter - Flor Mcdonald R.N. - 10/17/2021 12:55 PM CST SUBJECTIVE CHIEF COMPLAINT / REASON FOR CALL Communication (Questions) ASSESSMENT Patient calling in with some questions. She reports having taken Depo since age 16. She was supposedto get the Depo shot in April 2021, but never got it. She wants to know if she can still get even without getting her period. I advised, that yes she can. She has not started her cycle since stopping Depo. Patient has not taken a test. Discussed she should take one and call us backif it is positive. Patient also has not had annual exam in a couple years. Advised patient she could get transferred to scheduling to set up an appointment. She declines at this time because she doesnot have insurance. She is going to file for insurance and call back to be seen. She will also call back if she gets a positive test. PLAN Patient will call back to set up appointments as needed Disposition/Recommendation: self-care is appropriate at this time, patient encouraged to call back with questions. Information/Education: patient/caller able to teach back. Caller agreeable to plan of care: yes. The following references were used: nursing clinical judgement. ROOM SUPERVISOR documented in 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 Plan of Treatment Not on filedocumented as of 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 Visit Diagnoses Not on filedocumented in 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 Additional Health Concerns Assessment Noted Time PHQ-9 Depression Total Score: 7 11/29/2015 11:32 AM CS T documented as of 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 Care Teams Outside Laborer Relationship Specialty Start Date End Date Elsewhere, Pcp PCP - General 05/29/19 documented as of 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
--- OUTSIDE RECORDS SUMMARY | 2022-07-11 09:21 | XMS_ITS | Encounter Summary ---
:1990 Author Organization [facility] Address [address] [place] [address] Care Team Providers Name Role Phone Unavailable Primary Care Provider Unavailable Encounter Details Date Type Department Care Team Description 10/09/2014 Hospital Encounter HX [facility] Fiona Mcconnell, P.AMayur [address] [place] [address] [place] [address] (Wo rk) Social History Tobacco Use Types Packs/Day Years Used Date Smoking Tobacco: Never Assessed Sex Assigned at Date Recorded Not on file documented as of 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 Last Filed Vital Signs Vital Sign Reading Time Taken Comments Blood Pressure - - Pulse - - Temperature - - Respiratory Rate - - Oxygen Saturation - - Inhaled Oxygen Concentration - - Weight - - Height 164 cm (5' 4.57) 10/09/2014 2:16 PM VULCANIZING MACHINE OPERATOR Body Mass Index - - documented in 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 Miscellaneous Notes Miscellaneous - Joan Chambers - 10/09/2014 4:08 PM CST Results Notification Document Contains Addenda Addendum by EDWARDO ROBLES LPN on 09 October 2014 16:39:43 VULCANIZING MACHINE OPERATOR LMTCB From: JOAN CHAMBERS PA-C To: ALEXANDR Chambers Nurse; Sent: 10/09/2014 16:08:16 VULCANIZING MACHINE OPERATOR ! Show up: 10/09/2014 16:08:16 VULCANIZING MACHINE OPERATOR Subject: Results Notification Actions: Notify patient of results Reminder Comments: Negative test. Results: Date Result Name Value Ref Range 10/09/2014 14:21 Beta hCG Qnt <0.50 mIU/mL ( - <=25.00) Source: [facility] POWERCHART Document Id: [id number] Electronically signed by Conversion, [facility] Switch Foreman [id number] at 02/22/2017 9:17 PM CDT documented in 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 Plan of Treatment Not on filedocumented as of 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 Procedures Procedure Name Priority Date/Time Associated Diagnosis Comme nts BHCG (BETA-HUMAN Routine 10/09/2014 2:21 PM Resul ts for this CHORIONIC VULCANIZING MACHINE OPERATOR procedure are i n GONADOTROPIN), the results ERVIN, S section. documented in 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 Results bHCG (Beta-Human Chorionic Gonadotropin), Quantitative (10/09/2014 2:21 PM VULCANIZING MACHINE OPERATOR) P athologist Signature Beta-HCG, <0.50 <=25.00 POWERCHART Quantitative, S MIUML Specimen (Source) Anatomical Collection Method Collection Time Re ceived Time Location / / Volume Laterality Blood 10/09/2014 2:21 PM VULCANIZING MACHINE OPERATOR [facility] BLOOD ADD-ON Performing Organization Address City/State/ZIP Code Phon e Number POWERCHART documented in 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 Visit Diagnoses Not on filedocumented in 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 Additional Health Concerns Assessment Noted Time PHQ-9 Depression Total Score: 3 10/05/2014 11:20 AM CS T documented as of 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
--- OUTSIDE RECORDS SUMMARY | 2022-07-11 09:21 | XMS_ITS | Encounter Summary ---
:1990 Author Organization [facility] Address [address] [place] [address] Care Team Providers Name Role Phone Unavailable Primary Care Provider Unavailable Encounter Details Date Type Department Care Team Description 10/06/2014 Hospital Encounter [facility]X [facility] Joan Grant, Tracie [address] [place] [address] [place] [address] (Wo rk) Social History Tobacco Use Types [...] - - Height 164 cm (5' 4.57) 10/06/2014 9:06 AM AV SPECIALIST Body Mass Index - - documented in 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 Miscellaneous Notes Miscellaneous - Joan Chambers - 10/09/2014 6:41 PM CST Results Notification Document Contains Addenda Addendum by JOAN CHAMBERS PA-C on 10 October 2014 08:22:57 AV SPECIALIST From: JOAN CHAMBERS PA-C To: ALEXANDR Chambers Nurse; Sent: 10/10/2014 08:22:57 AV SPECIALIST Show up: 10/10/2014 08:22:00 AV SPECIALIST Subject: RE: Results Notification Spoke with Yolanda via phone this morning. She is interested in consult with General Surgery in [place], as advised by radiology, for further evaluation of her breast pain. Order is in and she will schedule. From: JOAN CHAMBERS PA-C To: ALEXANDR Chambers Nurse; JOAN CHAMBERS PA-C; Sent: 10/09/2014 18:41:28 AV SPECIALIST ! Show up: 10/09/2014 18:41:28 AV SPECIALIST Subject: Results Notification Actions: Notify patient of results Reminder Comments: Left VM asking patient to call back. Would like to discuss results. Results: Date Result Type Result Name 10/06/2014 10:42 Radiology US Breast Right Source: [facility] POWERCHART Document Id: [id number] Electronically signed by Conversion, [facility] Tutor [id number] at 02/22/2017 9:17 PM CDT documented in 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 Plan of Treatment Not on filedocumented as of 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 Procedures Procedure Name Priority Date/Time Associated Comments Diagnosis BI ULTRASOUND BREAST Routine 10/06/2014 9:15 AM R esults for this FOCUSED RIGHT AV SPECIALIST procedure are in the results section. documented in 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 Results BI Ultrasound Breast Focused Right (10/06/2014 9:15 AM AV SPECIALIST) Anatomical Region Laterality Modality Breast Right Ultrasound Specimen (Source) Anatomical Collection Method Collection Time Re ceived Time Location / / Volume Laterality 10/06/2014 9:15 AM AV SPECIALIST Impressions 10/06/2014 10:39 AM AV SPECIALIST ??Please refer to digital diagnostic mammogram report generated October 06, 2014 for further di scussion, recommendations and BI-RADS assessment. BIRADS Narrative 10/06/2014 10:39 AM AV SPECIALIST EXAM: ??US Breast Right AGE: ??24 years old. GENDER: ??Female. INDICATION: ??Right lateral breast and a xillary swelling and pain, intermittent. ??Ongoing for 3 months. No discrete mass. Denies skin changes. Denies nipple discharge. COMPARISON: ?? NOTE: After completion of the right breast ultrasound which did not demonstrate any sonographi c findings to explain patient's current clinical symptoms, christina gnostic evaluation was also performed of the right breast, including 2 views of the left breast for baseline and reference for detection of asymmetry. FINDINGS: Ultrasound evaluation of the e ntire right breast and right axilla. No sonographic findings for ruddy gnancy throughout the right breast or right axilla. Please refer to digital diagnostic mammo gram report generated October 06, 2014 for further discussion, recommen dations and BI-RADS assessment. Procedure Note Steve Dias M.D. / Provider, Jay dickens M.D. - 02/04/2017 EXAM: US Breast Right AGE: [age] years old. GENDER: Female. INDICATION: Right lateral breast and axi llary swelling and pain, intermittent. Ongoing for 3 months. No d iscrete mass. Denies skin changes. Denies nipple discharge. COMPARISON: NOTE: After completion of th e right breast ultrasound which did not demonstrate any sonographi c findings to explain patient's current clinical symptoms, christina gnostic evaluation was also performed of the right breast, including 2 views of the left breast for baseline and reference for detection of asymmetry. FINDINGS: Ultrasound evaluation of the e ntire right breast and right axilla. No sonographic findings for ruddy gnancy throughout the right breast or right axilla. Please refer to digital diagnostic mammo gram report generated October 06, 2014 for further discussion, recommen dations and BI-RADS assessment. IMPRESSION: Please refer to digital diag nostic mammogram report generated October 06, 2014 for further di scussion, recommendations and BI-RADS assessment. BIRADS Vandana Obrien R.V.T., RKatieMMayurS. IMG BI PROCEDURES documented in 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 Visit Diagnoses Not on filedocumented in 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 Additional Health Concerns Assessment Noted Time PHQ-9 Depression Total Score: 3 10/05/2014 11:20 AM CS T documented as of 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
--- OUTSIDE RECORDS SUMMARY | 2022-07-11 09:21 | XMS_ITS | Encounter Summary ---
:1990 Author Organization [facility] Address [address] [place] [address] Care Team Providers Name Role Phone Unavailable Primary Care Provider Unavailable Encounter Details Date Type Department Care Team Description 10/06/2014 Hospital Encounter HX [facility] Tierney Beltran, PMichele [address] [place] [address] [place] [address] (Wo rk) Social History Tobacco Use Types [...] - Height 164 cm (5' 4.57) 10/06/2014 9:34 AM CONVENTION SERVICES DIRECTOR Body Mass Index - - documented in 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 Miscellaneous Notes Miscellaneous - Joan Chambers - 10/06/2014 10:18 AM CST Work Excuse 06 October 2014 YOLANDA LEONE [address] [facility] [id number] Dear YOLANDA READ, You were examined in my office on: 10/04/2014 Reason for work excuse: Medical Illness ( x ) Yes ( _ ) No Injury ( _ ) Yes ( _ ) No Is excused from all work: ( _ ) Yes ( _ ) No Has work limitations: ( _ ) Yes ( _ ) No As follows: _ Limitations apply until: _ Follow-Up Appointment : ( _ ) Return to Work date: _ Notes: Please excuse Yolanda from work on 10/04/2014 due to illness. Sincerely, JOAN CHAMBERS [address], [place] [address] Electronic Signature Electronically Signed By: JOAN CHAMBERS PA-C On: 06 October 2014 This document has images extracted. Source: [facility] POWERCHART Document Id: [id number] Electronically signed by Conversion, [facility] Account Technician [id number] at 02/22/2017 9:17 PM CDT documented in 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 Plan of Treatment Not on filedocumented as of 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 Procedures Procedure Name Priority Date/Time Associated Comments Diagnosis BI BREAST DIAGNOSTIC Routine 10/06/2014 10:05 AM Results for this BILATERAL WITH CONVENTION SERVICES DIRECTOR procedure are in COMPUTER AIDED the results DETECTION section. documented in 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 Results BI Breast Diagnostic Bilateral with Computer Aided Detection (10/06/2014 10:05 AM CONVENTION SERVICES DIRECTOR) Anatomical Region Laterality Modality Breast Bilateral Mammography Specimen (Source) Anatomical Collection Method Collection Time Re ceived Time Location / / Volume Laterality 10/06/2014 10:05 AM CONVENTION SERVICES DIRECTOR Impressions 10/06/2014 1:46 PM CONVENTION SERVICES DIRECTOR CODE: 3-PROBABLY BENIGN Appropriate letter sent. Full field digital mammography is used a nd Computer Aided Detection is performed on the digital mammogram im ages. Narrative 10/06/2014 1:46 PM CONVENTION SERVICES DIRECTOR EXAM: MA Mammo Diag Bilat w/ CADD INDICATION: Right lateral breast and axi llary swelling and pain, intermittent. ??Ongoing for 3 months. COMPARISON: Baseline area NOTE: After completion of the right cathy st ultrasound which did not demonstrate any sonographic findings to explain patient's current clinical symptoms, diagnostic evaluation was also performed of the right breast, including 2 views of the l eft breast for baseline and reference for detection of asymmetry. FINDINGS: Scattered fibroglandular densi ties both breasts. Slight area of asymmetry within the uppe r, outer middle/posterior depth of the right breast, as this repre sents patient's baseline evaluation, determination of stability c annot be verified. Likely represents normal anatomic variation. To confirm stability, recommend 6 month followup diagnostic evaluation o f the right breast. In the interim recommend surgical consultation regarding management of the area of pain/no discrete mass right c[address]. Presuming no change in the plan after surgical consultation, 6 month followup evaluation will be scheduled by the radiology Depar tment. FINDINGS: Ultrasound evaluation of the e ntire right breast and right axilla. No sonographic findings for ruddy gnancy throughout the right breast or right axilla. Please refer to digital diagnostic mammo gram report generated October 06, 2014 for further discussion, recommen dations and BI-RADS assessment. Results discussed with patient. Procedure Note Steve Dias M.D. / Provider, Jay dickens M.D. - 02/04/2017 EXAM: MA Mammo Diag Bilat w/ CADD INDICATION: Right lateral breast and axi llary swelling and pain, intermittent. Ongoing for 3 months. COMPARISON: Baseline area NOTE: After completion of the right cathy st ultrasound which did not demonstrate any sonographic findings to explain patient's current clinical symptoms, diagnostic evaluation was also performed of the right breast, including 2 views of the l eft breast for baseline and reference for detection of asymmetry. FINDINGS: Scattered fibroglandular densi ties both breasts. Slight area of asymmetry within the uppe r, outer middle/posterior depth of the right breast, as this repre sents patient's baseline evaluation, determination of stability c annot be verified. Likely represents normal anatomic variation. To confirm stability, recommend 6 month followup diagnostic evaluation o f the right breast. In the interim recommend surgical consultation regarding management of the area of pain/no discrete mass right c[address]. Presuming no change in the plan after surgical consultation, 6 month followup evaluation will be scheduled by the radiology Depar tment. FINDINGS: Ultrasound evaluation of the e ntire right breast and right axilla. No sonographic findings for ruddy gnancy throughout the right breast or right axilla. Please refer to digital diagnostic mammo gram report generated October 06, 2014 for further discussion, recommen dations and BI-RADS assessment. Results discussed with patient. IMPRESSION: CODE: 3-PROBABLY BENIGN Appropriate letter sent. Full field digital mammography is used a nd Computer Aided Detection is performed on the digital mammogram im ages. Jessica GreyTMayur(R), R.T.(R)(M) IMG BI PROCEDUR ES documented in 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 Visit Diagnoses Not on filedocumented in 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 Additional Health Concerns Assessment Noted Time PHQ-9 Depression Total Score: 3 10/05/2014 11:20 AM CS T documented as of 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
--- OUTSIDE RECORDS SUMMARY | 2022-07-11 09:21 | XMS_ITS | Encounter Summary ---
:1990 Author Organization [facility] Address [address] [place] [address] Care Team Providers Name Role Phone Elsewhere, Pcp Primary Care Provider Unavailable Encounter Details Date Type Department Care Team Description 11/01/2021 Orders Only Urgent Care in [place] Kim L, APR N, [place] C.N.P., R.N. [address] [place] [address] [place] [address] [place] [id number] (Wo rk) Social History Tobacco Use Types Packs/Day Years Used Date Smoking Tobacco: Every Day Cigarettes 0.8 Smokeless Tobacco: Never Alcohol Use Standard Drinks/Week Comments Yes 4 (1 standard drink = 0.6 oz pure alcoho l) every other week Alcohol Habits Answer Date Recorded How often do you have a drink containing alcohol? Not asked How many drinks containing alcohol do you have on a Not aske d typical day when you are drinking? How often do you have six or more drinks on one Not asked occasion? Comment: every other week 11/01/2021 Sex Assigned at Date Recorded Not on file documented as of 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 Plan of Treatment Not on filedocumented as of 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 Visit Diagnoses Not on filedocumented in 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 Additional Health Concerns Assessment Noted Time PHQ-9 Depression Total Score: 7 11/29/2015 11:32 AM CS T documented as of 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 Care Teams Stringer Machine Tender Relationship Specialty Start Date End Date Elsewhere, Pcp PCP - General 05/29/19 documented as of 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
--- OUTSIDE RECORDS SUMMARY | 2022-07-11 09:21 | XMS_ITS | Encounter Summary ---
:1990 Author Organization [facility] Address [address] [place] [address] Care Team Providers Name Role Phone Charissa Gilbert P.A.-C. Primary Care Provider [phone] Encounter Details Date Type Department Care Team Description 07/28/2017 Orders Only Department of Family Jessica Mcconnell, Medicine, [facility] in [facility] [address] [facility] [address] [place] [address] [place] [address] [phone] Social History Tobacco Use Types Packs/Day Years Used Date Smoking Tobacco: Former Sex Assigned at Date Recorded Not on file documented as of 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 Plan of Treatment Not on filedocumented as of 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 Visit Diagnoses Not on filedocumented in 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 Additional Health Concerns Assessment Noted Time PHQ-9 Depression Total Score: 7 11/29/2015 11:32 AM CS T documented as of 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 Care Teams Vp Product Management Relationship Specialty Start Date End Date Charissa Gilbert P.A.-C. PCP - General 03/12/17 05/28/19 documented as of 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
--- OUTSIDE RECORDS SUMMARY | 2022-07-11 09:21 | XMS_ITS | Encounter Summary ---
:1990 Author Organization [facility] Address [address] [place] [address] Care Team Providers Name Role Phone Elsewhere, Pcp Primary Care Provider Unavailable Reason for Visit Reason Comments Abdominal Pain Pt reports she has had abd p ain since 10/29/2021, pt was seen last Thursday for abd pain and vagi nal discharge. Pt was treated for bacterial vaginosis. Pt repo rts abd pain has gotten worse and is now having pain all across abdom inal area. Appointment Request (Routine) - Closed Specialty Diagnoses / Procedures Referred By Contact Refer red To Contact Family Medicine Referral ID Status Reason Start Date Expiration Date Visits Requ ested Visits Authorized [id number] Closed 11/07/2021 11/07/2022 1 1 Encounter Details Date Type Department Care Team Description 11/07/2021 Office Visit Urgent Care in [place] Amanda F, P ain [facility] DATA TYPIST, C.N.P., Abdominal (Primary Dx) [address] [place] [address] [address] [facility] [phone] [place] [address] Social History Tobacco Use Types Packs/Day Years [...] Pressure - - Pulse - - Temperature 36.7 ??C (98.1 ??F) 11/07/2021 7:21 PM AIRCRAFT DELIVERY CHECKER Respiratory Rate 18 11/07/2021 7:21 PM AIRCRAFT DELIVERY CHECKER Oxygen Saturation - - Inhaled Oxygen Concentration - - Weight 134 kg (296 lb 4.8 oz) 11/07/2021 7:21 PM AIRCRAFT DELIVERY CHECKER Height - - Body Mass Index 49.97 12/18/2015 3:08 PM CDT documented in 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 Progress Notes Juana Pearce, CHARLETTE, C.N.P., D.N.P. - 11/07/2021 7:30 PM CST CHIEF COMPLAINT / REASON FOR VISIT Yolanda Majano is a 31 y.o. female presenting today for evaluation of Abdominal Pain (Pt reports she has had abd pain since 10/29/2021, pt was seen last Ariel for abd pain and vaginal discharge. Ptwas treated for bacterial vaginosis. Pt reports abd pain has gotten worse and is now having pain allacross abdominal area. ) SUBJECTIVE HISTORY OF PRESENT ILLNESS #1 Abdominal Pain (Pt reports she has had abd pain since 10/29/2021, pt was seen last Thursday for abd pain and vaginal discharge. Pt was treated for bacterial vaginosis. Pt reports abd pain has gotten worse and is now having pain all across abdominal area. ) Yolanda is a pleasant 31 year old female presenting to the clinic for concerns about abdominal pain.She was recently seen on November 01 for abdominal pain which included lower abdominal discomfort, cramping, vaginal bleeding similar to a period, and vaginal discharge. Urine culture was negative forinfection. Was positive for BV and she was provided oral Flagyl for seven days. Today she states shecontinues to have sharp pain in the stomach. It was originally on the left side. She vomited this morning and is having constant nausea. No fevers. She feels the tight pain like someone is squeezing her insides. She pooped today and it was normal. No heartburn. No history of GI disorders. No prior abdominal surgeries. Since starting the antibiotic, the discharge has resolved. No changes to her diet and no foods make it worse. She still has appetite. The original pain pain that started on the first it was on the left side, it was sharp. It was not as severe. Now it is all over and more painful. The pain is constant at a 8/10. She took a bath and this improved her symptoms. She is unsure of what makes it worse. She has not tried anything else for her pain.She started a menstrual cycle on October 29. She is going through three periods a day. She uses condoms for contraception. She stopped the Depot in February 2021 and was on it for 16 years. 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 REVIEW OF SYSTEMS Constitutional: Negative for fatigue, fever and loss of appetite. Skin: Negative for skin rash. Respiratory: Negative for dyspnea and wheezing. Gastrointestinal: Positive for abdominal (belly) pain or cramping and nausea. Negative for blood in stool, constipation, diarrhea, heartburn, vomiting and difficulty swallowing. Genitourinary: Positive for abnormal vaginal bleeding and menses change or abnormal. Negative for difficulty urinating, pain with urination and frequent urination. Neurological: Negative for light-headedness and headaches. MEDICATIONS Current Outpatient Medications Medication Sig Dispense Refill ??? metroNIDAZOLE (FLAGYL) 500 mg tablet Take 1 tablet (500 mg total) by mouth 2 (two) times a day for 7 days. 14 tablet 0 ??? ARIPiprazole (ABILIFY) 2 mg tablet Take 2 mg by mouth daily. ??? FLUoxetine (PROzac) 60 mg tablet Take 60 mg by mouth daily. ??? lamoTRIgine (LaMICtal) 150 mg tablet Take 300 mg by mouth daily. No current facility-administered medications for this visit. ALLERGIES Allergies Allergen Reactions ??? Macrobid [Nitrofurantoin Monohyd/M-Cryst] Hives ??? Celexa [Citalopram] Other (see comments) Makes suicidal thoughts increase ??? House Dust Mite Itching ??? Naproxen Hives PAST MEDICAL / SURGICAL HISTORY No past medical history on file. Past Surgical History: Procedure Laterality Date ??? OTHER CONVERTED SHX (SEE COMMENT) N/A 03/25/2013 >Multilayered closure of left lip laceration with partial avulsion via local advancement flaps to obtain ??? TONSILLECTOMY AND ADENOIDECTOMY N/A 01/30/2005 Tonsillectomy with Adenoidectomy SOCIAL HISTORY FAMILY HISTORY Family History Problem Relation Age of Onset ??? Cervical cancer Mother ??? Depression Mother ??? Breast cancer Aunt ??? Cancer Grandmother ??? Cancer Grandmother ??? Hypertension Father OBJECTIVE PHYSICAL EXAM Vitals and nursing note reviewed. Constitutional Appearance: She is well-developed and well-nourished. HENT Head: Normocephalic. Right Ear: Hearing, tympanic membrane, ear canal and external ear normal. Left Ear: Hearing, tympanic membrane, ear canal and external ear normal. Nose: Nose normal. Mouth/Throat: Mouth: Oropharynx is clear and moist and mucous membranes are normal. Pharynx: Uvula midline. No oropharyngeal exudate or posterior oropharyngeal erythema. Cardiovascular Rate and Rhythm: Normal rate and regular rhythm. Heart sounds: Normal heart sounds, S1 normal and S2 normal. Pulmonary Effort: Pulmonary effort is normal. Breath sounds: Normal breath sounds. No stridor. No decreased breath sounds, wheezing, rhonchi or rales. Abdominal General: Abdomen is flat. Bowel sounds are normal. Palpations: Abdomen is soft. Tenderness: There is generalized abdominal tenderness and tenderness in the right upper quadrant, right lower quadrant, periumbilical area, suprapubic area, left upper quadrant and left lower quadrant. There is no right CVA tenderness, left CVA tenderness, guarding or rebound. Comments: Any palpation on abdomen caused her to state it hurt, soft and deep palpation Musculoskeletal Cervical back: Full passive range of motion without pain. Lymphadenopathy Head: Right side of head: No submental or submandibular adenopathy. Left side of head: No submental or submandibular adenopathy. Cervical: No cervical adenopathy. Skin General: Skin is warm. Capillary Refill: Capillary refill takes less than 2 seconds. Neurological Mental Status: She is alert and oriented to person, place, and time. Temp 36.7 ??C Resp 18 Wt 134 kg LMP 10/29/2021 (Exact Date) BMI 49.97 kg/m?? ASSESSMENT / PLAN #1 Pain Generalized Abdominal - US Pelvis Transvaginal and Transabdominal; Future; Expected date: 11/07/2021 - US Abdomen Complete; Future; Expected date: 11/07/2021 - CBC with Differential, Blood; Future; Expected date: 11/07/2021 - Comprehensive Metabolic Panel - Lipase Etiology unknown. Difficult historian. Did not repeat pelvic exam as she has had improvement in those symptoms. Will get basic belly labs and ultrasound to see if we can find the source of her pain. Ifthe pain acutely worsens, recommended ER evaluation. If testing is negative, explained to her that she needs to follow up with her PCP for workup and management of this pain. I spent a total of 30 minutes reviewing the patient's medical records and diagnostic tests, seeing the patient, speaking with the nursing team, placing the orders noted above, coordinating care, and documenting in the record. Juana Pearce APRN, C.N.P., D.N.P., 11/07/2021, 7:42 PM AIRCRAFT DELIVERY CHECKER RAFT DELIVERY CHECKER documented in 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 Plan of Treatment Not on filedocumented as of 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 Visit Diagnoses Diagnosis Pain Generalized Abdominal - Primary documented in 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 Additional Health Concerns Assessment Noted Time PHQ-9 Depression Total Score: 7 11/29/2015 11:32 AM CS T documented as of 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 Care Teams Communications Assistant Relationship Specialty Start Date End Date Elsewhere, Pcp PCP - General 05/29/19 documented as of 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
--- OUTSIDE RECORDS SUMMARY | 2022-07-11 09:21 | XMS_ITS | Encounter Summary ---
:1990 Author Organization [facility] Address [address] [place] [address] Care Team Providers Name Role Phone Elsewhere, Pcp Primary Care Provider Unavailable Reason for Visit Reason Comments Abdominal Cramping Nausea Vaginal Discharge Appointment Request (Routine) - Closed Specialty Diagnoses / Procedures Referred By Contact Refer red To Contact Family Medicine Referral ID Status Reason Start Date Expiration Date Visits Requ ested Visits Authorized [id number] Closed 11/01/2021 11/01/2022 1 1 Encounter Details Date Type Department Care Team Description 11/01/2021 Office Visit Urgent Care in [place] Kim L, Ten derness Periumbilical (Primary Dx); [place] ELECTRON BEAM OPERATOR, C.N.P., Bleeding Vaginal; [address] [place] [phone] [place] [phone] [place] [phone] Social History Tobacco Use Types Packs/Day Years Used Date Smoking Tobacco: Every Day Cigarettes 0.8 Smokeless Tobacco: Never Tobacco Cessation: Counseling Given: No Alcohol Use Standard Drinks/Week Comments Yes 4 [...] Sign Reading Time Taken Comments Blood Pressure 122/84 11/01/2021 11:41 AM CLIENT ACCOUNT MANAGER Pulse 91 11/01/2021 11:41 AM CLIENT ACCOUNT MANAGER Temperature 36.8 ??C (98.2 ??F) 11/01/2021 11:41 AM CLIENT ACCOUNT MANAGER Respiratory Rate 18 11/01/2021 11:41 AM CLIENT ACCOUNT MANAGER Oxygen Saturation 99% 11/01/2021 11:41 AM CLIENT ACCOUNT MANAGER Inhaled Oxygen Concentration - - Weight 134 kg (295 lb 6.7 oz) 11/01/2021 11:41 AM CLIENT ACCOUNT MANAGER Height - - Body Mass Index 49.82 12/18/2015 3:08 PM CDT documented in 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 Progress Notes Stacy Pearl, CHARLETTE, C.N.P., R.N. - 11/01/2021 12:00 PM CST SUBJECTIVE CHIEF COMPLAINT Yolanda Majano is a 31 y.o. female who presents to the clinic for lower abdominal discomfort andvaginal bleeding with discharge. HISTORY OF PRESENT ILLNESS 31-year-old 0 female presents today for evaluation of lower abdominal discomfort/cramping, left side greater than right, vaginal bleeding similar to a., milky white vaginal discharge. Patient is also had some nausea however no vomiting. Reports she has been on Depo injection since age 16 when she started Accutane. Stopped 5 months ago, has not had a period all this time however 2 days ago shestarted spotting and now is having light vaginal bleeding along with lower abdominal discomfort and cramping. She also has noted some milky white vaginal discharge. Denies any fever, flank pain, dysuria, hematuria. Has history of UTIs in the past, she will develop lower abdominal cramping when these occur. Also reports past history of bacterial vaginosis however she has no odor. She is sexually active, has been in a monogamous relationship for quite some time with her male partner, she is not using any contraception. Partner is not having any symptoms. She took 2 tests at home and both were negative, the last 1 was 2 days ago. She has not tried anything for relief. The following portions of the patient's history were reviewed and updated as appropriate: allergies,current medications, family history, medical history, social history, surgical history and problem list. Allergies Allergen Reactions ??? Macrobid [Nitrofurantoin Monohyd/M-Cryst] Hives ??? Celexa [Citalopram] Other (see comments) Makes suicidal thoughts increase ??? House Dust Mite Itching ??? Naproxen Hives Constitutional: Negative for fever. Gastrointestinal: Positive for nausea. Negative for vomiting. Lower abdominal discomfort with cramping. Left side greater than right. Genitourinary: Positive for abnormal vaginal bleeding. Milky white vaginal discharge. All other systems reviewed and are negative. OBJECTIVE Vitals: 11/01/21 1141 BP: 122/84 Patient Position: Sitting Pulse: 91 Temp: 36.8 ??C Resp: 18 Weight: 134 kg SpO2: 99% TempSrc: Temporal Body mass index is 49.82 kg/m??. Vitals reviewed. Exam conducted with a packaging associate present. Constitutional General: She is not in acute distress. Appearance: Normal appearance. Pulmonary Effort: Pulmonary effort is normal. Abdominal General: There is no distension. Tenderness: There is no right CVA tenderness, left CVA tenderness, guarding or rebound. Genitourinary General: Normal vulva. Exam position: Lithotomy position. Uterus: Tender. Adnexa: Right: No tenderness. Left: Tenderness present. Comments: Small amount of blood and white discharge in vaginal vault. Tissues normal appearing, intact. Cervical os nulliparous. Small sebaceous cyst on left inner labia, able to massage and remove. Neurological Mental Status: She is alert. ASSESSMENT / PLAN #1 Tenderness Periumbilical #2 Bleeding Vaginal #3 Discharge Vaginal Will rule out , collected swabs for vaginitis panel and GC chlamydia, ordered UA with urineculture. Results will be called when available and patient will be treated accordingly. Discussed ifserum test is positive will need to proceed with ultrasound to rule out ectopic .Advised thinking about contraception for the future if is not desired right now. Patient agreed with plan and all questions were answered. Notified the patient vaginitis panel is positive for bacterial vaginosis. For treatment ordered metronidazole oral 500 mg twice daily for 7 days, recommended no alcohol intake while taking this medication or for 48 hours past the last dose. Urinalysis is questionable for infection however will wait for urine culture to return before initiating any treatment. Serum test is negative. GC chlamydia still pending. MEDICATION CHANGES TODAY: No orders of the defined types were placed in 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. There are no discontinued medications. Ready to learn, no apparent learning barriers were identified; learning preferences include listening. Explained diagnosis and treatment plan; patient/child/digital cartographic technician expressed understanding of the content. NT ACCOUNT MANAGER documented in 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 Miscellaneous Notes Result Encounter Note - Stacy Pearl APRN, C.N.Bing., R.N. - 11/01/2021 4:18 PM CST Please notify the patient vaginitis panel is positive for bacterial vaginosis. For treatment orderedmetronidazole oral 500 mg twice daily for 7 days. Do not drink alcohol while taking this antibiotic as it can make you violently ill. Would advise no alcohol intake until 48 hours past the last dose. Urinalysis is questionable for infection, however will wait for urine culture to return before initiating any treatment. GC chlamydia still pending. NT ACCOUNT MANAGER documented in 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 Plan of Treatment Not on filedocumented as of 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 Procedures Procedure Name Priority Date/Time Associated Diagnosis Comme nts VAGINITIS PANEL STAT 11/01/2021 12:18 PM Bleeding Vag inal Results for this CLIENT ACCOUNT MANAGER Discharge Vaginal procedure are in the results section. CHLAMYDIA/GONORRHOE STAT 11/01/2021 12:18 PM Bleeding Vaginal Results for this AE AMPLIFIED RNA CLIENT ACCOUNT MANAGER Discharge Vaginal proced ure are in the results section. documented in 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 Results (ABNORMAL) Bacterial Culture, Aerobic + Susc, Urine (11/01/2021 12:56 PM CLIENT ACCOUNT MANAGER) Analysis Performed At Patho logist Time Signature Urine Culture Mixed 11/02/2021 [facility] mary beth. (A) 12:18 PM CLIENT ACCOUNT MANAGER Specimen Anatomical Collection Method Collection Time Receive d Time (Source) Location / / Volume Laterality Urine (Urine, 11/01/2021 12:56 11/01/2021 5:43 Midstream) PM CLIENT ACCOUNT MANAGER PM CLIENT ACCOUNT MANAGER Comment: Specimen Source Site: Urine Stacy Pearl APRN, Brenden.N.P., R.N. LAB MICROBIOLOGY - GEN ERAL ORDERABLES Performing Organization Address City/State/ZIP Code Phon e Number [facility]- [address] [place] [id number] [place] [address] System [address] (ABNORMAL) Urinalysis with Microscopic: Urine, Midstream (11/01/2021 12:56 PM CLIENT ACCOUNT MANAGER) Analysis Performed At Patho logist Time Signature Source Urine, Urine, 11/01/2021 [facility] Midstream 1:06 PM CLIENT ACCOUNT MANAGER Clarity Clear Clear 11/01/2021 [facility] 1:06 PM CLIENT ACCOUNT MANAGER Color Yellow 11/01/2021 [facility] 1:06 PM CLIENT ACCOUNT MANAGER Comment: ----REFERENCE VALUE---- Colorless Yellow Corinne Blood Moderate (A) Negative 11/01/2021 1:06 PM CLIENT ACCOUNT MANAGER [facility] Nitrite Negative Negative 11/01/2021 1:06 PM CLIENT ACCOUNT MANAGER [facility] Leukocyte Esterase Trace (A) Negative 11/01/2021 1:06 PM CS T AUST Protein Negative mg/dL 11/01/2021 1:06 PM CLIENT ACCOUNT MANAGER [facility] Comment: ----REFERENCE VALUE---- Negative Trace Glucose Negative Negative mg/dL 11/01/2021 1:06 PM CLIENT ACCOUNT MANAGER AU ST Ketone Negative Negative mg/dL 11/01/2021 1:06 PM CLIENT ACCOUNT MANAGER AU ST Bilirubin Negative Negative 11/01/2021 1:06 PM CLIENT ACCOUNT MANAGER [facility] pH 5.0 5.0 - 8.0 11/01/2021 1:06 PM CLIENT ACCOUNT MANAGER [facility] Specific [place] 1.023 1.001 - 1.035 11/01/2021 1:06 PM CLIENT ACCOUNT MANAGER [facility] Urobilinogen 0.2 0.2 - 1.0 mg/dL 11/01/2021 1:06 PM CS T AUST White Blood Cells Occ-3 /hpf 11/01/2021 1:09 PM CLIENT ACCOUNT MANAGER [facility] Comment: ----REFERENCE VALUE---- Males: 0-3 Females: 0-10 Unknown: 0-10 Red Blood Cells Occ-2 0 - 2 /hpf 11/01/2021 1:09 PM CLIENT ACCOUNT MANAGER [facility] Hyaline Casts 1-3 /lpf 11/01/2021 1:09 PM CLIENT ACCOUNT MANAGER AUS T Squamous Cells Occ-3 /hpf 11/01/2021 1:09 PM CLIENT ACCOUNT MANAGER AU ST Specimen Anatomical Collection Method Collection Time Receive d Time (Source) Location / / Volume Laterality Urine (Urine, 11/01/2021 12:56 11/01/2021 1:00 Midstream) PM CLIENT ACCOUNT MANAGER PM CLIENT ACCOUNT MANAGER Stacy Pearl APRN, C.N.P., R.N. LAB URINE ORDERABLES Performing Organization Address [facility]/ZIP [facility] [place] Phon e Number [facility]- [address] [place] [address] [place] [facility] [place] [facility] [place], [place] [id number] [place] [address] hCG (Human Chorionic Gonadotropin), Quantitative, (11/01/2021 12:29 PM CLIENT ACCOUNT MANAGER) P athologist Signature HCG, <0.5 <5 IU/L 11/01/2021 [facility] Quantitative, 2:40 PM CLIENT ACCOUNT MANAGER , P Comment: Biotin has been identified by the bety chapa as a potential interfering substance. ??Higher concentr ations of biotin may be found in multivitamins, hair/nail supple ments, and workout supplements. ??If the result does not [facility] clinical observations, repeat testing after patient refrains fr om the use of supplements for at least 12 hours. Specimen Anatomical Collection Method Collection Time Receive d Time (Source) Location / / Volume Laterality Blood (Blood, 11/01/2021 12:29 11/01/2021 1:04 Venous) PM CLIENT ACCOUNT MANAGER PM CLIENT ACCOUNT MANAGER Stacy Pearl APRN, C.N.P., R.N. LAB BLOOD ADD-ON Performing Organization Address City/[facility]/ZIP Code Phon e Number [facility]- [address] [place] [address] [place] [facility] [place] [place], [place] [id number] [place] [address] (ABNORMAL) Vaginitis Panel (11/01/2021 12:18 PM CLIENT ACCOUNT MANAGER) Patholo gist Method Time Signature Katie Negative Negative 11/01/2021 [facility] species, DNA 1:29 PM CLIENT ACCOUNT MANAGER Gardnerella Positive (A) Negative 11/01/2021 [facility] vaginalis, DNA 1:29 PM CLIENT ACCOUNT MANAGER Trichomonas Negative Negative 11/01/2021 [facility] vaginalis, DNA 1:29 PM CLIENT ACCOUNT MANAGER Specimen Anatomical Collection Method Collection Time Receive d Time (Source) Location / / Volume Laterality Swab (Vagina) 11/01/2021 12:18 11/01/2021 PM CLIENT ACCOUNT MANAGER 12:35 PM CLIENT ACCOUNT MANAGER Brenden Seo APRN.N.P., R.N. LAB MICROBIOLOGY - GEN ERAL ORDERABLES Performing Organization Address City/State/ZIP Code Phon e Number [facility]- [address] [place] [address] [place] [facility] [place] [address] [facility] [address] Chlamydia / Gonorrhoeae Amplified RNA (11/01/2021 12:18 PM CLIENT ACCOUNT MANAGER) [facility] gist Method Time Signature Source Swab, Vagina 11/04/2021 MK[facility] 3:19 PM CLIENT ACCOUNT MANAGER Chlamydia Negative Negative 11/04/2021 [facility] trachomatis 3:19 PM CLIENT ACCOUNT MANAGER amplified RNA Source Swab, Vagina 11/04/2021 [facility] 3:19 PM CLIENT ACCOUNT MANAGER Neisseria Negative Negative 11/04/2021 [facility] gonorrhoeae 3:19 PM CLIENT ACCOUNT MANAGER amplified RNA Specimen Anatomical Collection Method Collection Time Receive d Time (Source) Location / / Volume Laterality Varies (Vagina) 11/01/2021 12:18 11/01/19 22 5:43 PM CLIENT ACCOUNT MANAGER PM CLIENT ACCOUNT MANAGER Brenden Seo APRN.N.P., R.N. LAB MICROBIOLOGY - GEN ERAL ORDERABLES Performing Organization Address City/[facility]/ZIP Code Phon e Number [facility]- [address] [place] [id number] [place] [address] [place] [address] System in [address] documented in 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 Visit Diagnoses Diagnosis Tenderness Periumbilical - Primary Bleeding Vaginal Discharge Vaginal documented in 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 Additional Health Concerns Assessment Noted Time PHQ-9 Depression Total Score: 7 11/29/2015 11:32 AM CS T documented as of 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 Care Teams Internet Marketer Relationship Specialty Start Date End Date Elsewhere, Pcp PCP - General 05/29/19 documented as of 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
--- OUTSIDE RECORDS SUMMARY | 2022-07-11 09:21 | XMS_ITS | Encounter Summary ---
:1990 Author Organization [facility] Address [address] [place] [address] Care Team Providers Name Role Phone Elsewhere, Pcp Primary Care Provider Unavailable Reason for Visit Reason Comments Results Encounter Details Date Type Department Care Team Description 06/29/2020 Clinical Communication [facility] Tung Mcmahan , Results System-Bobby Irving M.D. [address] [facility] [phone] DORI SCALES (Work) [phone] Social History Tobacco Use Types Packs/Day [...] encounter Miscellaneous Notes Telephone Encounter - Eva Mark - 06/29/2020 12:36 PM CDT Left message for patient to call back to the [employer] number regarding their negative COVID-19 result. Please communicate the negative COVID result to the patient. We do not have a call back number. Thank you. documented in 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 Plan of Treatment Not on filedocumented as of 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 Visit Diagnoses Not on filedocumented in 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 Additional Health Concerns Assessment Noted Time PHQ-9 Depression Total Score: 7 11/29/2015 11:32 AM CS T documented as of 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 Care Teams Games Dealer Relationship Specialty Start Date End Date Elsewhere, Pcp PCP - General 05/29/19 documented as of 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
--- OUTSIDE RECORDS SUMMARY | 2022-07-11 09:21 | XMS_ITS | Encounter Summary ---
:1990 Author Organization [facility] Address [address] [place] [address] Care Team Providers Name Role Phone Elsewhere, Pcp Primary Care Provider Unavailable Reason for Visit Reason Comments Abdominal Pain Encounter Details Date Type Department Care Team Description 11/25/2021 Emergency [facility] Bandar Paul Lowe r Abdominal Pain Unspecified (Primary Dx); Emergency Department M.D. Diarrhea [address] [facility] [address] [place] [id number] [phone] Social History Tobacco Use Types Packs/Day Years Used Date Smoking Tobacco: Every Day Cigarettes 0.8 Smokeless Tobacco: Never Alcohol Use Standard Drinks/Week Comments Yes 12 (1 standard drink = 0.6 oz pure alcoh ol) Sex Assigned at Date Recorded Not on file documented as of 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 Last Filed Vital Signs Vital Sign Reading Time Taken Comments Blood Pressure 130/81 11/25/2021 1:00 PM EMERGENCY DEPARTMENT CLINICIAN Pulse 82 11/25/2021 1:00 PM EMERGENCY DEPARTMENT CLINICIAN Temperature - - Respiratory Rate 18 11/25/2021 1:00 PM EMERGENCY DEPARTMENT CLINICIAN Oxygen Saturation 95% 11/25/2021 1:00 PM EMERGENCY DEPARTMENT CLINICIAN Inhaled Oxygen Concentration - - Weight 136 kg (300 lb 4.3 oz) 11/25/2021 9:40 AM EMERGENCY DEPARTMENT CLINICIAN Height 167.1 cm (5' 5.79) 11/25/2021 9:40 AM EMERGENCY DEPARTMENT CLINICIAN Body Mass Index 48.78 11/25/2021 9:40 AM EMERGENCY DEPARTMENT CLINICIAN documented in 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 Discharge Instructions AttachmentsThe following attachments cannot be sent through Care Everywhere. Diarrhea Adult (Romanian)Abdominal Pain Adult (Romanian)documented in 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 Medications at Time of Discharge Medication Sig Dispensed Refills Start Date End Date ondansetron ODT Take 1 tablet (4 20 tablet 0 11/07/202105/2022 (ZOFRAN-ODT) 4 mg mg total) by mouth disintegrating tablet every 8 (eight) hours as needed for nausea or vomiting. documented as of 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 Nursing Notes Hugo Nation R.N. - 11/25/2021 12:29 PM CST Patient had an episode of nausea with a small volume of emesis following contrast administration. Nasuea resolved within a couple minutes. GENCY DEPARTMENT CLINICIAN documented in 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 ED Notes Bandar Paul M.D. 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 The patient reports that four weeks ago, she developed sharp and band-like left-sided abdominal pain. She notes that she recently discontinued Depo-Provera and that a few days prior to the onset she started to have several days of vaginal bleeding (from 10/29/2021 to 11/10/2021). Since that time, she has had no further vaginal bleeding, however her abdominal pain has persisted. Of note, the patient was evaluated by Urgent Care in [place] twice over the last few weeks (on 11/04/2021 and 11/07/2021). She was treated for bacterial vaginosiswith metronidazole oral 500 mg twice daily for seven days and is scheduled to undergo an transvaginal and abdominal ultrasound at the end of this week. Given that the abdominal pain has not improved she presents to the Emergency Department for further evaluation. Abdominal pain is aggravated with eating foods. Nothing in particular seems to improve discomfort. Over the last two weeks, she has additionally developed intermittent nausea, vomiting, and diarrhea. She denies any drinking water from any fresh water sources. No history of abdominal surgeries, recent travel, or sick contacts. She has a history of hemorrhoids and notes one episode of bright red blood per rectum that occurred a few days ago. Here, she rates her discomfort at 7/10 in severity. REVIEW OF SYSTEMS Constitutional: Negative for appetite change, diaphoresis, fever and unexpected weight change. HENT: Negative for congestion, ear pain and rhinorrhea. Eyes: Negative for visual disturbance. Respiratory: Positive for cough (chronic). Negative for shortness of breath. Cardiovascular: Negative for chest pain. Gastrointestinal: Positive for abdominal pain, blood in stool, diarrhea, nausea and vomiting. Genitourinary: Negative for dysuria, flank pain, frequency and vaginal bleeding. Skin: Negative for color change and rash. Allergic/Immunologic: Negative for immunocompromised state. Neurological: Negative for syncope, light-headedness and headaches. Hematological: Does not bruise/bleed easily. Psychiatric/Behavioral: Negative for agitation. OBJECTIVE Initial Vitals Temp Pulse Rate Heart Rate Resp Rate Blood Pressure SpO2 -- 11/25/21 0949 -- 11/25/21 0949 11/25/21 0949 11/25/21 0949 100 18 (!) 142/92 97 % Pain Score 11/25/21 0947 5 - Moderate pain PHYSICAL EXAMINATION Constitutional: Nursing note and vitals reviewed. She appears not lethargic. No distress. The patient is obese. HENT: Head: Atraumatic. Eyes: Conjunctivae are normal. Neck: Neck supple. Cardiovascular: Normal rate, regular rhythm and normal heart sounds. No murmur heard. Pulmonary/Chest: Effort normal and breath sounds normal. There is normal air entry. No stridor. No tachypnea. No respiratory distress. She has no wheezes. She has no rhonchi. She has no rales. She exhibits no retraction. Abdominal: Soft. exhibits no distension. There is abdominal tenderness in the left lower quadrant. There is no CVA tenderness. Left-sided abdominal tenderness without rebound or guarding, greatest in the LLQ. Musculoskeletal: General: No deformity. Normal range of motion. Cervical back: Normal range of motion and neck supple. Neurological: Alert and oriented to person, place, and time. Skin: Skin is warm and dry. She is not diaphoretic. No jaundice or pallor. Psychiatric: She has a normal mood and affect. Behavior is normal. 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 On arrival to the Emergency Department the patient is mildly hypertensive but otherwise hemodynamically stable, afebrile, and saturating well on room air. I am suspicious for infectious colitis, C. Difficile colitis, as well as diverticulitis, less likely inflammatory bowel conditionsuch as Crohn's disease or ulcerative colitis. Presentation is not consistent with hepatobiliary etiology. We will proceed with abdominal CT, abdominal pain labs, and urine studies to rule out urinary tract infection and pyelonephritis. She denies exposure to turtles, however given exposure to animalsthrough her work we will obtain a stool pathogen panel. Treatment during ED course of observation and evaluation to include pain management as needed. If all is reassuring, the patient will be dismissed home with outpatient follow-up. The patient expresses understanding and agreement with the plan. All questions answered. I reviewed previous medical records including documentation from previous visits. I personally reviewed the lab result(s) and my interpretation is documented in ED Course. I personally reviewed the radiology image(s) and reviewed the radiology report(s). ED Course as of 11/26/21 1232 Mon Nov 25, 2021 1229 Leukocytes, POCT, U(!): Trace 1230 Nitrites, POCT, U: Negative 1230 Blood, POCT, U: Negative 1230 Lipase, S: 27 Lipase not suggestive 1230 Basic Metabolic Panel(!): Potassium, P 4.8 Sodium, P 138 Chloride, P 105 Bicarbonate, P 27 Anion Gap, P 6(!) BUN (Blood Urea Nitrogen), P 12 Creatinine, P 0.66 eGFR-Black/ >90 eGFR Non-Black/ >90 Calcium, Total, P 9.2 Glucose, P 90 Reassuring electrolytes and renal function 1230 HCG, Quantitative, , P: <0.5 Not 1230 Hepatic Function Panel(!): Bilirubin, Total, S <0.2 Bilirubin, Direct, S <0.2 Aspartate Aminotransferase (AST), S 17 Alanine Aminotransferase (ALT), S 26 Alkaline Phosphatase, S 104 Albumin, S 3.9 Protein, Total, S 6.1(!) Overall reassuring liver function tests 1230 Hemoglobin: 13.8 1230 Platelet Count: 371 1230 White Blood Cell Count(!): 11.1 1230 SARS CoV-2, PCR, Rapid, V: Undetected 1311 Leukocyte Esterase(!): Small Urine dipstick with small leuk esterase but no other signs of infection and reassuring microscopy 1312 Lipase not suggestive of acute pancreatitis 1312 SARS CoV-2, PCR, Rapid, V: Undetected 1325 Cta/p: FINDINGS: The small bowel and colon are normal in caliber. No evidence of diverticulosis. Benign left renal cyst. The liver, gallbladder, pancreas, spleen and adrenal glands are normal. Uterus and ovaries are normal in appearance. ?? Prominent, non-pathologically enlarged mesenteric lymph nodes which are likely reactive. No worrisome bone lesion. Atelectasis in the visualized lung bases. Mild wispy symmetric edema anterior abdominal wall fat on series 3, image 91 and in the fat posterior to the spine on series 3, image 87, without loculation. This is nonspecific. 1337 I have re-assessed the patient prior to discharge. The results from this evaluation have been reviewed. We have reviewed the discharge instructions along with return precautions, and the patient'squestions have been answered to the best of my ability. The patient is being discharged to home in stable condition. Final Diagnoses: as of 11/26/21 1232 Lower Abdominal Pain Unspecified Diarrhea I personally performed the services described in this documentation, as scribed in my presence, and it is both accurate and complete. Bandar Pual M.D. 11/26/21 1232 GENCY DEPARTMENT CLINICIAN documented in 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 Plan of Treatment Not on filedocumented as of 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 Procedures Procedure Name Priority Date/Time Associated Comments Diagnosis CT ABDOMEN PELVIS RAD - Semiurgent 11/25/2021 12:49 Re sults for this WITH IV CONTRAST (Fast; most ED PM EMERGENCY DEPARTMENT CLINICIAN procedure are in patients; some the results inpatients) section. HC URINALYSIS AUTO Routine 11/25/2021 11:44 Resul ts for this WO MICRO AM EMERGENCY DEPARTMENT CLINICIAN procedure are i n the results section. DIPSTICK, U STAT 11/25/2021 11:40 Results for this AM EMERGENCY DEPARTMENT CLINICIAN procedure are i n the results section. MICROSCOPIC STAT 11/25/2021 11:40 Results for this AUTOMATED AM EMERGENCY DEPARTMENT CLINICIAN procedure are i n the results section. BACTERIAL CULTURE, STAT 11/25/2021 11:40 Resul ts for this AEROBIC + SUSC, AM EMERGENCY DEPARTMENT CLINICIAN procedure ar e in URINE the results section. PH, U STAT 11/25/2021 11:40 Results for this AM EMERGENCY DEPARTMENT CLINICIAN procedure are i n the results section. OSMOLALITY, U STAT 11/25/2021 11:40 Results fo r this AM EMERGENCY DEPARTMENT CLINICIAN procedure are i n the results section. URINALYSIS WITH STAT 11/25/2021 11:40 Results for this MICROSCOPIC AM EMERGENCY DEPARTMENT CLINICIAN procedure are i n the results section. HEPATIC FUNCTION STAT 11/25/2021 10:17 Results for this PANEL, S AM EMERGENCY DEPARTMENT CLINICIAN procedure are i n the results section. CBC WITH STAT 11/25/2021 10:17 Results for this DIFFERENTIAL, B AM EMERGENCY DEPARTMENT CLINICIAN procedure ar e in the results section. HUMAN CHORIONIC STAT 11/25/2021 10:17 Results for this GONADOTROPIN (HCG), AM EMERGENCY DEPARTMENT CLINICIAN procedur e are in ERVIN, the results section. LIPASE, S/P STAT 11/25/2021 10:17 Results for this AM EMERGENCY DEPARTMENT CLINICIAN procedure are i n the results section. BASIC METABOLIC STAT 11/25/2021 10:17 Results for this PANEL, S/P AM EMERGENCY DEPARTMENT CLINICIAN procedure are i n the results section. SARS CORONAVIRUS 2, STAT 11/25/2021 10:03 Resu lts for this PCR RAPID, V AM EMERGENCY DEPARTMENT CLINICIAN procedure are i n the results section. documented in 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 Results CT Abdomen Pelvis with IV Contrast (11/25/2021 12:49 PM EMERGENCY DEPARTMENT CLINICIAN) Anatomical Region Laterality Modality Abdomen, Pelvis, Abdominal RST LOS, N/A Comp uted Tomography, Computed Abdominal ARZ LOS, Abdominal FLA LOS John ography Specimen (Source) Anatomical Collection Method Collection Time Re ceived Time Location / / Volume Laterality 11/25/2021 12:24 PM EMERGENCY DEPARTMENT CLINICIAN Impressions 11/25/2021 1:12 PM EMERGENCY DEPARTMENT CLINICIAN No acute finding or cause for abdominal pain identified. Narrative 11/25/2021 1:12 PM EMERGENCY DEPARTMENT CLINICIAN EXAM: ??CT ABDOMEN PELVIS WITH IV CONTRAST COMPARISON: ??None FINDINGS: The small bowel and colon are normal in caliber. No evidence of diverticulosis. Benign left renal cyst. The liver, gallb ladder, pancreas, spleen and adrenal glands are normal. Uterus and ovaries are normal in appeara nce. Prominent, non-pathologically enlarged m esenteric lymph nodes which are likely reactive. No worrisome bone lesion. Atelectasis in th e visualized lung bases. Mild wispy symmetric edema anterior abdominal wall fat on series 3, image 91 and in the fat posterior to the spine on series 3, image 87, without loculation. This is nonspeci fic. Procedure Note Gil Strange M.D. - 11/25/2021For matting of this note might be different from the original. EXAM: CT ABDOMEN PELVIS WITH IV CONTRAST COMPARISON: None FINDINGS: The small bowel and colon are normal in caliber. No evidence of diverticulosis. Benign left renal cyst. The liver, gallb ladder, pancreas, spleen and adrenal glands are normal. Uterus and ovaries are normal in appeara nce. Prominent, non-pathologically enlarged m esenteric lymph nodes which are likely reactive. No worrisome bone lesion. Atelectasis in th e visualized lung bases. Mild wispy symmetric edema anterior abdominal wall fat on series 3, image 91 and in the fat posterior to the spine on series 3, image 87, without loculation. This is nonspeci fic. IMPRESSION: No acute finding or cause for abdominal pain identified. Bandar Paul M.D. IMG CT PROCEDURES (ABNORMAL) Dipstick, POCT, Urine (11/25/2021 11:44 AM EMERGENCY DEPARTMENT CLINICIAN) [facility] Method Time Signature Glucose, Negative Negative 11/25/2021 PCED POCT, U mg/dL 11:46 AM EMERGENCY DEPARTMENT CLINICIAN Ketone, POCT, Negative Negative 11/25/2021 PCED U mg/dL 11:46 AM EMERGENCY DEPARTMENT CLINICIAN Specific 1.025 1.005 - 11/25/2021 PCED [place], 1.030 11:46 AM EMERGENCY DEPARTMENT CLINICIAN POCT, U Blood, POCT, Negative Negative 11/25/2021 PCED U 11:46 AM EMERGENCY DEPARTMENT CLINICIAN pH, POCT, 6.0 5.0 - 8.0 11/25/2021 PCED Urine 11:46 AM EMERGENCY DEPARTMENT CLINICIAN Protein, Negative Negative 11/25/2021 PCED POCT, U mg/dL 11:46 AM EMERGENCY DEPARTMENT CLINICIAN Nitrites, Negative Negative 11/25/2021 PCED POCT, U 11:46 AM EMERGENCY DEPARTMENT CLINICIAN Leukocytes, Trace (A) Negative 11/25/2021 PCED POCT, U 11:46 AM EMERGENCY DEPARTMENT CLINICIAN Specimen Anatomical Collection Method Collection Time Receive d Time (Source) Location / / Volume Laterality Urine 11/25/2021 11:44 11/25/2021 AM EMERGENCY DEPARTMENT CLINICIAN 11:46 AM EMERGENCY DEPARTMENT CLINICIAN Unknown Provider LAB POCT ORDERABLES - DEVICE Performing Organization Address City/[facility]/ZIP [facility] Phon e Number POC [facility]ST [facility] [address] [place] [address] [place] [address] [facility] [address] [facility] Osmolality, Urine (11/25/2021 11:40 AM EMERGENCY DEPARTMENT CLINICIAN) athologist Signature Osmolality, U 654 150 - 1150 11/25/2021 DTL mOsm/kg 12:31 PM EMERGENCY DEPARTMENT CLINICIAN Specimen Anatomical Collection Method Collection Time Receive d Time (Source) Location / / Volume Laterality Urine 11/25/2021 11:40 11/25/2021 AM EMERGENCY DEPARTMENT CLINICIAN 12:05 PM EMERGENCY DEPARTMENT CLINICIAN Bandar Paul M.D. LAB URINE ORDERABLES Performing Organization Address City/[facility] Phon e Number [facility] - [address] [place], [place] [address] [place] [address] [facility] [address] [facility] pH, Urine (11/25/2021 11:40 AM EMERGENCY DEPARTMENT CLINICIAN) athologist Signature pH, U 5.3 4.5 - 8.0 11/25/2021 12:31 DTL PM EMERGENCY DEPARTMENT CLINICIAN Specimen Anatomical Collection Method Collection Time Receive d Time (Source) Location / / Volume Laterality Urine 11/25/2021 11:40 11/25/2021 AM EMERGENCY DEPARTMENT CLINICIAN 12:05 PM EMERGENCY DEPARTMENT CLINICIAN Bandar Paul M.D. LAB URINE ORDERABLES Performing Organization Address City/[facility] Phon e Number [facility] - [address] [place], [place] [address] [place] [address] [facility] [address] [facility] Microscopic Automated (11/25/2021 11:40 AM EMERGENCY DEPARTMENT CLINICIAN) athologist Signature Microscopy Normal 11/25/2021 DTL 12:45 PM EMERGENCY DEPARTMENT CLINICIAN WBC 1-3 /hpf 11/25/2021 DTL 12:45 PM EMERGENCY DEPARTMENT CLINICIAN Comment: ----REFERENCE VALUE---- 1-3 ??(Males) 1-10 (Females) Squamous Epithelial Cells, U 4-10 /hpf 11/25/2021 12:45 PM EMERGENCY DEPARTMENT CLINICIAN DTL Specimen Anatomical Collection Method Collection Time Receive d Time (Source) Location / / Volume Laterality Urine 11/25/2021 11:40 11/25/2021 AM EMERGENCY DEPARTMENT CLINICIAN 12:05 PM EMERGENCY DEPARTMENT CLINICIAN Bandar Paul M.D. LAB URINE ORDERABLES Performing Organization Address [facility] Phon e Number [facility] - [address] [place] [address] [address] [place] [address] [facility] [address] [facility] (ABNORMAL) Dipstick, Urine (11/25/2021 11:40 AM EMERGENCY DEPARTMENT CLINICIAN) [facility] [employer] Method Time Signature Hemoglobin, Negative Negative 11/25/2021 DTL QL 12:45 PM EMERGENCY DEPARTMENT CLINICIAN Leukocyte Small (A) Negative 11/25/2021 DTL Esterase, U 12:45 PM EMERGENCY DEPARTMENT CLINICIAN Nitrite, U Negative Negative 11/25/2021 DTL 12:45 PM EMERGENCY DEPARTMENT CLINICIAN Ketones, U Negative Negative 11/25/2021 DTL mg/dL 12:45 PM EMERGENCY DEPARTMENT CLINICIAN Glucose, U Negative Negative 11/25/2021 DTL mg/dL 12:45 PM EMERGENCY DEPARTMENT CLINICIAN Specimen Anatomical Collection Method Collection Time Receive d Time (Source) Location / / Volume Laterality Urine 11/25/2021 11:40 11/25/2021 AM EMERGENCY DEPARTMENT CLINICIAN 12:05 PM EMERGENCY DEPARTMENT CLINICIAN Bandar Paul M.D. LAB URINE ORDERABLES Performing Organization Address City/[facility] Phon e Number [facility] - [address] [place] [address] [address] [place] [address] Laboratories-[address] Bacterial Culture, Aerobic + Susc, Urine (11/25/2021 11:40 AM EMERGENCY DEPARTMENT CLINICIAN) Component Value Ref Test Analysis Performed At [facility] [employer] Range Method Time Signature Urine Organism present <10,000 cfu/mL, susceptibilities not 11/26/2021 DTL Culture performed per laboratory criteria. 8:12 AM EMERGENCY DEPARTMENT CLINICIAN Specimen Anatomical Collection Method Collection Time Receive d Time (Source) Location / / Volume Laterality Urine (Urine, 11/25/2021 11:40 11/25/2021 Midstream) AM EMERGENCY DEPARTMENT CLINICIAN 12:40 PM EMERGENCY DEPARTMENT CLINICIAN Comment: Specimen Source Site: Urine Bandar Paul M.D. LAB MICROBIOLOGY - GENERAL O RDERABLES Performing Organization Address City/[facility]/ZIP Code Phon e Number [facility] - [address] [place] [address] [place] [phone] Urinalysis with Microscopic: Urine, Midstream (11/25/2021 11:40 AM EMERGENCY DEPARTMENT CLINICIAN) Patholo gist Method Time Signature Source Urine, Urine, 11/25/2021 DTL Midstream 12:04 PM EMERGENCY DEPARTMENT CLINICIAN Color, U Yellow 11/25/2021 DTL 12:05 PM EMERGENCY DEPARTMENT CLINICIAN Clarity, U Clear 11/25/2021 DTL 12:05 PM EMERGENCY DEPARTMENT CLINICIAN Protein, U 5 <26 mg/dL 11/25/2021 DTL 12:56 PM EMERGENCY DEPARTMENT CLINICIAN Protein/Osmol 0.08 <0.42 11/25/2021 DTL ality ratio 12:56 PM EMERGENCY DEPARTMENT CLINICIAN Predicted 24 65 mg/24 h 11/25/2021 DTL Hr Protein 12:56 PM EMERGENCY DEPARTMENT CLINICIAN Predicted 16-262 mg/24 h 11/25/2021 DTL Range 12:56 PM EMERGENCY DEPARTMENT CLINICIAN Specimen Anatomical Collection Method Collection Time Receive d Time (Source) Location / / Volume Laterality Urine (Urine, 11/25/2021 11:40 11/25/2021 Midstream) AM EMERGENCY DEPARTMENT CLINICIAN 12:04 PM EMERGENCY DEPARTMENT CLINICIAN Bandar Paul M.D. LAB URINE ORDERABLES Performing Organization Address [facility] Phon e Number [facility] - [address] [place], [place] [address] [place] [address] hCG (Human Chorionic Gonadotropin), Quantitative, (11/25/2021 10:17 AM EMERGENCY DEPARTMENT CLINICIAN) P athologist Signature HCG, <0.5 <5 IU/L 11/25/2021 [facility] Quantitative, 10:43 AM EMERGENCY DEPARTMENT CLINICIAN , P Specimen Anatomical Collection Method Collection Time Receive d Time (Source) Location / / Volume Laterality Blood (Blood, 11/25/2021 10:17 11/25/2021 Venous) AM EMERGENCY DEPARTMENT CLINICIAN 10:22 AM EMERGENCY DEPARTMENT CLINICIAN Bandar Paul M.D. LAB BLOOD ADD-ON Performing Organization Address City/[facility] Phon e Number [facility] - [address] [place], [place] [address] [facility] [place] [address] [facility] [address] [facility] (ABNORMAL) Basic Metabolic Panel (11/25/2021 10:17 AM EMERGENCY DEPARTMENT CLINICIAN) P athologist Signature Potassium, P 4.8 3.6 - 5.2 11/25/2021 DTL mmol/L 11:21 AM EMERGENCY DEPARTMENT CLINICIAN Sodium, P 138 135 - 145 11/25/2021 DTL mmol/L 11:21 AM EMERGENCY DEPARTMENT CLINICIAN Chloride, P 105 98 - 107 11/25/2021 DTL mmol/L 11:21 AM EMERGENCY DEPARTMENT CLINICIAN Bicarbonate, P 27 22 - 29 11/25/2021 DTL mmol/L 11:21 AM EMERGENCY DEPARTMENT CLINICIAN Anion Gap, P 6 (L) 7 - 15 11/25/2021 DTL 11:21 AM EMERGENCY DEPARTMENT CLINICIAN BUN (Blood Urea 12 6 - 21 11/25/2021 DTL Nitrogen), P mg/dL 11:21 AM EMERGENCY DEPARTMENT CLINICIAN Creatinine 0.66 0.59 - 11/25/2021 DTL 1.04 mg/dL 11:21 AM EMERGENCY DEPARTMENT CLINICIAN eGFR-Black/Afric >90 >=60 11/25/2021 DTL an Malagasy mL/min/BSA 11:21 AM EMERGENCY DEPARTMENT CLINICIAN Comment: ----ADDITIONAL INFORMATION---- Estimated GFR calculated using the 2009 CKD_EPI creatinine equation. eGFR Non-Black/ >90 >=60 mL/min/BSA 11/25/2021 11:21 AM EMERGENCY DEPARTMENT CLINICIAN DTL Comment: ----ADDITIONAL INFORMATION---- Estimated GFR calculated using the 2009 CKD_EPI creatinine equation. Calcium, Total, P 9.2 8.6 - 10.0 mg/dL 11/25/2021 11:2 1 AM EMERGENCY DEPARTMENT CLINICIAN DTL Glucose, P 90 70 - 140 mg/dL 11/25/2021 11:21 AM EMERGENCY DEPARTMENT CLINICIAN DTL Specimen Anatomical Collection Method Collection Time Receive d Time (Source) Location / / Volume Laterality Blood (Blood, 11/25/2021 10:17 11/25/2021 Venous) AM EMERGENCY DEPARTMENT CLINICIAN 10:22 AM EMERGENCY DEPARTMENT CLINICIAN Bandar Paul M.D. LAB BLOOD ADD-ON Performing Organization Address City/State/ZIP Code Phon e Number [facility] - [address] [place], [place] [address] [facility] [place] [address] Laboratories-[facility] [address] [facility] Lipase (11/25/2021 10:17 AM EMERGENCY DEPARTMENT CLINICIAN) P athologist Signature Lipase, S 27 13 - 60 U/L 11/25/2021 DTL 11:27 AM EMERGENCY DEPARTMENT CLINICIAN Specimen Anatomical Collection Method Collection Time Receive d Time (Source) Location / / Volume Laterality Blood (Blood, 11/25/2021 10:17 11/25/2021 Venous) AM EMERGENCY DEPARTMENT CLINICIAN 10:56 AM EMERGENCY DEPARTMENT CLINICIAN Bandar Paul M.D. LAB BLOOD ADD-ON Performing Organization Address City/[facility] Code Phon e Number [facility] [address] [id number] [address] [place] [address] (ABNORMAL) Hepatic Function Panel (11/25/2021 10:17 AM EMERGENCY DEPARTMENT CLINICIAN) Patholo gist Method Time Signature Bilirubin, Total, S <0.2 <=1.2 11/25/2021 DTL mg/dL 11:27 AM EMERGENCY DEPARTMENT CLINICIAN Bilirubin, Direct, S <0.2 0.0 - 0.3 11/25/2021 DTL mg/dL 11:27 AM EMERGENCY DEPARTMENT CLINICIAN Aspartate 17 8 - 43 11/25/2021 DTL Aminotransferase U/L 11:27 AM EMERGENCY DEPARTMENT CLINICIAN (AST), S Alanine 26 7 - 45 11/25/2021 DTL Aminotransferase U/L 11:27 AM EMERGENCY DEPARTMENT CLINICIAN (ALT), S Alkaline 104 35 - 104 11/25/2021 DTL Phosphatase, S U/L 11:27 AM EMERGENCY DEPARTMENT CLINICIAN Albumin, S 3.9 3.5 - 5.0 11/25/2021 DTL g/dL 11:27 AM EMERGENCY DEPARTMENT CLINICIAN Protein, Total, S 6.1 (L) 6.3 - 7.9 11/25/2021 DTL g/dL 11:27 AM EMERGENCY DEPARTMENT CLINICIAN Specimen Anatomical Collection Method Collection Time Receive d Time (Source) Location / / Volume Laterality Blood (Blood, 11/25/2021 10:17 11/25/2021 Venous) AM EMERGENCY DEPARTMENT CLINICIAN 10:56 AM EMERGENCY DEPARTMENT CLINICIAN Bandar Paul M.D. LAB BLOOD ADD-ON Performing Organization Address City/[facility]/ZIP Code Phon e Number [facility] - [address] [address] 05 [facility] [place] [address] Laboratories-[facility] 200 [facility] (ABNORMAL) CBC with Differential, Blood (11/25/2021 10:17 AM EMERGENCY DEPARTMENT CLINICIAN) [facility] Method Time Signature Hemoglobin 13.8 11.6 - 11/25/2021 STMA 15.0 g/dL 10:26 AM EMERGENCY DEPARTMENT CLINICIAN Hematocrit 42.3 35.5 - 11/25/2021 STMA 44.9 % 10:26 AM EMERGENCY DEPARTMENT CLINICIAN Erythrocytes 4.83 3.92 - 11/25/2021 STMA 5.13 10:26 AM EMERGENCY DEPARTMENT CLINICIAN x10(12)/L MCV 87.6 78.2 - 11/25/2021 STMA 97.9 fL 10:26 AM EMERGENCY DEPARTMENT CLINICIAN RBC Distrib Width 13.5 12.2 - 11/25/2021 STMA 16.1 % 10:26 AM EMERGENCY DEPARTMENT CLINICIAN Platelet Count 371 157 - 371 11/25/2021 STMA x10(9)/L 10:26 AM EMERGENCY DEPARTMENT CLINICIAN Leukocytes 11.1 (H) 3.4 - 9.6 11/25/2021 STMA x10(9)/L 10:26 AM EMERGENCY DEPARTMENT CLINICIAN Neutrophils 7.33 (H) 1.56 - 11/25/2021 STMA 6.45 10:26 AM EMERGENCY DEPARTMENT CLINICIAN x10(9)/L Lymphocytes 2.79 0.95 - 11/25/2021 STMA 3.07 10:26 AM EMERGENCY DEPARTMENT CLINICIAN x10(9)/L Monocytes 0.66 0.26 - 11/25/2021 STMA 0.81 10:26 AM EMERGENCY DEPARTMENT CLINICIAN x10(9)/L Eosinophils 0.24 0.03 - 11/25/2021 STMA 0.48 10:26 AM EMERGENCY DEPARTMENT CLINICIAN x10(9)/L Basophils 0.03 0.01 - 11/25/2021 STMA 0.08 10:26 AM EMERGENCY DEPARTMENT CLINICIAN x10(9)/L Specimen Anatomical Collection Method Collection Time Receive d Time (Source) Location / / Volume Laterality Blood (Blood, 11/25/2021 10:17 11/25/2021 Venous) AM EMERGENCY DEPARTMENT CLINICIAN 10:22 AM EMERGENCY DEPARTMENT CLINICIAN Bandar Paul M.D. LAB BLOOD ADD-ON Performing Organization Address City/State/ZIP Code Phon e Number [facility] - [address] [address] Laboratories-[facility] 200 [facility] SARS Coronavirus 2, PCR Rapid, V Symptomatic (11/25/2021 10:03 AM EMERGENCY DEPARTMENT CLINICIAN) [facility] Method Time Signature SARS CoV-2, Undetected Undetected 11/25/2021 [facility] PCR, Rapid, V 10:40 AM EMERGENCY DEPARTMENT CLINICIAN Comment: ----ADDITIONAL INFORMATION---- This RT-PCR test was performed using the Bryant SARS-CoV-2 and Influenza A/B Reagent assay from [facility], which has received Emergency Use Authori zation(EUA) by the U.S. Food and Drug Administration . Fact sheets for this Emergency Use Autho rization (EUA) assay can be found at the following link s: For Healthcare Providers: https://www.fda.gov/media/858473/downloa d For Patients: https://www.fda.gov/media/981302/downloa d SARS Coronavirus 2, Source, Swab, Nasopharynx 10/30 10:16 AM EMERGENCY DEPARTMENT CLINICIAN [facility] Rapid Specimen Anatomical Collection Method Collection Time Receive d Time (Source) Location / / Volume Laterality Varies 11/25/2021 10:03 11/25/2021 (Nasopharynx) AM EMERGENCY DEPARTMENT CLINICIAN 10:16 AM EMERGENCY DEPARTMENT CLINICIAN Bandar Paul M.D. LAB MICROBIOLOGY - GENERAL O RDERABLES Performing Organization Address City/State/ZIP Code Phon e Number [address] [address] [facility]-[address] documented in 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 Visit Diagnoses Diagnosis Lower Abdominal Pain Unspecified - Prima ry Diarrhea documented in 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 Administered Medications Inactive Administered Medications - up to 3 most recent administrations Medication Order MAR Action Action Date Dose Rate Site fentaNYL injection 50 mcg Given 11/25/2021 10:34 AM 50 mcg Right Upper Arm (SUBLIMAZE) EMERGENCY DEPARTMENT CLINICIAN 50 mcg, intravenous, Once, On Thu11/25/21 at 1005, For 1 dose HYDROmorphone injection 0.5 mg (DILAUDID ) Given 11/25/2021 11:32 AM EMERGENCY DEPARTMENT CLINICIAN 0.5 mg 0.5 mg, intravenous, Once, On Thu11/25/21 at 1130, For 1 dose iohexoL 300 mg iodine/mL solution 200 mL Given 11/25/2021 12:28 PM EMERGENCY DEPARTMENT CLINICIAN 200 mL (OMNIPAQUE) 200 mL, intravenous, Once in imaging, contrast, Starting on Thu11/25/21 at 1227, For 1 dose ondansetron ODT disintegrating tablet 4 mg Given 11/25/2021 10:3 4 AM EMERGENCY DEPARTMENT CLINICIAN 4 mg (ZOFRAN-ODT) 4 mg, oral, Once, On Thu11/25/21 at 1005, For 1 dose, When splitting ODT at bedside, handle with gloves and a pill splitter to prevent moisture contact. ondansetron ODT disintegrating tablet 4 mg Given 11/25/2021 1:19 PM EMERGENCY DEPARTMENT CLINICIAN 4 mg (ZOFRAN-ODT) 4 mg, oral, Once, On Thu11/25/21 at 1315, For 1 dose, When splitting ODT at bedside, handle with gloves and a pill splitter to prevent moisture contact. sodium chloride (PF) 0.9 % injection 50 mL Given 11/25/2021 12:29 PM EMERGENCY DEPARTMENT CLINICIAN 50 mL 50 mL, intravenous, Once, On Thu11/25/21 at 1229, For 1 dose sodium chloride 0.9 % injection 2-10 mL 2-10 mL, intravenous, As needed, line care, Starting o n Thu11/25/21 at 1002 documented in 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 Active and Recently Administered Medications Times are shown in EMERGENCY DEPARTMENT CLINICIAN. Scheduled Medication Order 11/23/2021 11/24/2021 11/25/2021 fentaNYL injection 50 mcg (SUBLIMAZE) (COMPLETED) 1034 (Given - Provider: Janice Downs R.N.) 50 mcg, intravenous, Once, On Thu11/25/21 at 1005, For 1 dose HYDROmorphone injection 0.5 mg (DILAUDID) (COMPLETED) 1132 (Given - Provider: Molly Wheatley R.N.)1138 (Override Pull - Provider: Molly Wheatley R.N.) 0.5 mg, intravenous, Once, On Thu11/25/21 at 1130, For 1 dose ondansetron ODT disintegrating tablet 4 mg (ZOFRAN-ODT) (COMPLET ED) 1034 (Given - Provider: Janice Downs R.NMayur) 4 mg, oral, Once, On Thu11/25/21 at 1005 , For 1 dose, When splitting ODT at bedside, handle with gloves and a pill splitter to prevent moisture contact. ondansetron ODT disintegrating tablet 4 mg (ZOFRAN-ODT) (COMPLET ED) 1319 (Given - Provider: Molly Wheatley R.N.) 4 mg, oral, Once, On Thu11/25/21 at 1315 , For 1 dose, When splitting ODT at bedside, handle with gloves and a pill splitter to prevent moisture contact. sodium chloride (PF) 0.9 % injection 50 mL (COMPLETED) 1229 (Given - Provider: Hugo Nation R.N.) 50 mL, intravenous, Once, On Thu11/25/21 at 1229, For 1 dose PRN Medication Order 11/23/2021 11/24/2021 11/25/2021 iohexoL 300 mg iodine/mL solution 200 mL (OMNIPAQUE) (COMPLETED) 1228 (Given - Provider: Hugo Nation R.N.) 200 mL, intravenous, Once in imaging, co ntrast, Starting on Thu11/25/21 at 1227, For 1 dose sodium chloride 0.9 % injection 2-10 mL(Linked Group 1) 2-10 mL, intravenous, As needed, line care, Starting on 11/25 at 1002 Linked Groups Order Group 1: Place peripheral IV: No upper extremity site restrictions (COMPLETED) Upper extremity site restriction: No upp er extremity site restrictions
Quantity of PIVs requested: One
STAT, Once, On Thu11/25/21 at 1003, For 1 occurrence And sodium chloride 0.9 % injection 2-10 mLJump to med 2-10 mL, intravenous, As needed, line ca re, Starting on Thu11/25/21 at 1002 documented in 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 Additional Health Concerns Infection Onset Date Last Indicated Resolved Time COVID19 Pending 11/25/2021 11/25/2021 11/25/2021 10:40 AM EMERGENCY DEPARTMENT CLINICIAN Assessment Noted Time PHQ-9 Depression Total Score: 7 11/29/2015 11:32 AM CS T documented as of 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 Care Teams Dietetics Director Relationship Specialty Start Date End Date Elsewhere, Pcp PCP - General 05/29/19 documented as of 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
--- OUTSIDE RECORDS SUMMARY | 2022-07-11 09:21 | XMS_ITS | Encounter Summary ---
:1990 Author Organization [facility] Address [address] [place] [address] Care Team Providers Name Role Phone Unavailable Primary Care Provider Unavailable Encounter Details Date Type Department Care Team Description 08/15/2014 Hospital Encounter [facility]X [facility] Puneet Walters M.D. [address] [place] [address] (Wo shekhar) Social History Tobacco Use Types Packs/Day Years Used Date Smoking Tobacco: Never Assessed Sex Assigned at Date Recorded Not on file documented as of 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 Last Filed Vital Signs Vital Sign Reading Time Taken Comments Blood Pressure 120/72 08/15/2014 1:11 PM STRIP DEBURRER Pulse 100 08/15/2014 1:11 PM STRIP DEBURRER Temperature - - Respiratory Rate 20 08/15/2014 1:11 PM STRIP DEBURRER Oxygen Saturation - - Inhaled Oxygen Concentration - - Weight 94 kg (207 lb 3.7 oz) 08/15/2014 1:11 PM STRIP DEBURRER Height 164 cm (5' 4.57) 08/15/2014 1:04 PM STRIP DEBURRER Body Mass Index 34.95 08/15/2014 1:04 PM STRIP DEBURRER documented in 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 Progress Notes Arturo Walters M.D. - 08/15/2014 1:04 PM CST [id number] Patient presents with a sore throat and a headache. It has been going on for a couple days now. She has had some postnasal drainage and congestion. She is worried that it could be bronchitis. She gets that about once a year. She has had a history of bronchitis in the past, and she does continue to smoke, which we encouraged her to quit. She noted that these symptoms started a few days ago and her boyfriend had similar symptoms with a sore throat, but he was never seen. She can take ibuprofen, but she is allergic to naproxen in that it caused a rash. MEDICATIONS Reviewed. ALLERGIES Reviewed her allergies. VITAL SIGNS Per EMR. PHYSICAL EXAMINATION ENT: Today TMs are clear bilaterally. There is frontal and maxillary sinus tenderness. Throat is mildly irritated. Postnasal drainage is noted. NECK: No adenopathy in the neck. LUNGS: Clear to auscultation. IMPRESSION/REPORT/PLAN 1. Upper respiratory infection. 2. Sinusitis. PLAN: Most sinus infections are viral. Recommend amoxicillin, but I would not recommend she start ityet. If the symptoms persist over the next 3 to 4 days, I did send a prescription in for her for amoxicillin. In the meantime, recommend symptomatic care. She is given a release from work, rest and pushing fluids. She will contact her primary though if this should worsen or not improve. Arturo Walters M.D./aracely Electronically Signed By: ARTURO WALTERS MD On: 08/15/2014 04:09 PM Source: [facility] MHSDOLBEYNONRADSYS Document Id: [id number] P DEBURRER documented in 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 Procedure Notes Mila Albert L.P.N. - 08/15/2014 1:24 PM CST Rapid Strep A Screen POC Rapid Strep A Screen POC Entered On: 08/15/2014 13:24 STRIP DEBURRER Performed On: 08/15/2014 13:24 STRIP DEBURRER by MILA ALBERT Rapid Strep A Screen POC Rapid Strep A Screen POC : Negative Internal Positive QC : Pass MILA ALBERT - 08/15/2014 13:24 STRIP DEBURRER Source: [facility] POWERCHART Document Id: [id number] STRIP DEBURRER!4 P DEBURRER documented in 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 Miscellaneous Notes Miscellaneous - Arturo Walters M.D. - 08/15/2014 1:29 PM CST Work Excuse 15 August 2014 YOLANDA LEONE [address] [facility] [phone] Dear YOLANDA LEONE, Release from work Thursday and Thursday due to illness Sincerely, ARTURO WALTERS [address] [place] [id number] Electronic Signature Electronically Signed By: ARTURO WALTERS MD On: 15 August 2014 This document has images extracted. Source: [facility] POWERCHART Document Id: [id number] Electronically signed by Conversion, [facility] Structural Worker [id number] at 02/24/2017 5:49 AM CDT Miscellaneous - Arturo Walters M.D. - 08/15/2014 1:26 PM CST Ambulatory Patient Summary [facility] [address] [place] [phone] Visit Information Name: YOLANDA LEONE [facility] Number: [id number] Current Date: 08/15/2014 13:26:12 Physicians Attending Provider: UNKNOWN1, PROVIDER Primary Care Provider: LENI TILLMAN MD YOLANDA LEONE has been given the following list of follow-up instructions, medication list, and patient education materials: Follow-up Instructions Your Medications Here is a list of your medications. It is important to take your medications as directed. Use a pillbox or chart to help remind you to take your medications. Please let your doctor or nurse know if you have problems taking your medications. Medication/Strength How to Take Indications/Special Instructions/Comments/Notes for Patient Medication Changes/Routing acetaminophen/dextromethorphan/PSE (DayQuil) as needed dextroamphetamine-amphetamine (Adderall XR 30 mg oral capsule, extended release) 1 cap, Oral, once aday (in the morning) ADHD medroxyPROGESTERone (Depo-Provera Contraceptive 150 mg/mL intramuscular suspension) 1 Milliliter, Intramuscular, every 90 days RECURRING ORDER, GIVE EVERY 12 WEEKS Stop Taking the Following Medications: Medication list as of 08-15-14 13:26 Attention: If you have any medications at home that are not on this list, DO NOT take them until youcontact your provider for clarification. Give a copy of your medication list to your primary care provider. Update your medication list any time medications or doses are changed and carry your medication list at all times in case of emergency. Electronically Signed By: ARTURO WALTERS MD Signed On:15-AUG-2014 13:26:09 Your Allergies & Intolerances Substance Reaction Symptoms Category Comments naproxen ITCHING Drug Your Problem List Problem Status Onset Comments Pain Neck Active 08/14/2009 Tobacco Abuse Active 08/14/2009 ADHD - Attention deficit disorder with hyperactivity Active Depressive disorder, major, recurrent episode Active Routine general medical exam Active 11/04/2013 Acne NOS Active 11/04/2013 Your Upcoming Appointments Date Time Location Provider No Appointments found Attention: Contact your local Clinic if further appointment detail needed. Your Goals/Additional instructions: Source: [facility] [employer] Document Id: [id number] P DEBURRER Miscellaneous - Arturo Walters M.D. - 08/15/2014 1:26 PM CST Ambulatory Discharge Medication List [address] [phone] Visit Information Name: YOLANDA LEONE [facility] Number: [phone] Visit Date: 08/15/2014 13:26:11 Attending Provider: UNKNOWN1, PROVIDER Primary Care Provider: LENI TILLMAN MD YOLANDA LEONE has been given the following list of medications: Your Medications It is important to take your medications as directed. Use a pill box or chart to help remind you to take your medications. Please let your doctor or nurse know if you have problems taking your medications. Medication/Strength How to Take Indications/Special Instructions/Comments/Notes for Patient Medication Changes/Routing acetaminophen/dextromethorphan/PSE (DayQuil) as needed dextroamphetamine-amphetamine (Adderall XR 30 mg oral capsule, extended release) 1 cap, Oral, once aday (in the morning) ADHD medroxyPROGESTERone (Depo-Provera Contraceptive 150 mg/mL intramuscular suspension) 1 Milliliter, Intramuscular, every 90 days RECURRING ORDER, GIVE EVERY 12 WEEKS Stop Taking the Following Medications: Medication list as of 08-15-14 13:26 Attention: If you have any medications at home that are not on this list, DO NOT take them until youcontact your provider for clarification. Give a copy of your medication list to your primary care provider. Update your medication list any time medications or doses are changed and carry your medication list at all times in case of emergency. Electronically Signed By: ARTURO WALTERS MD Signed On:15-AUG-2014 13:26:09 Additional Information: Source: [facility] POWERCHART Document Id: [id number] P DEBURRER Miscellaneous - Mila Albert L.PMayurNMayur - 08/15/2014 1:11 PM CST Adult Specialty Development Consultant Intake/History Adult Specialty Development Consultant Intake/History Entered On: 08/15/2014 13:13 STRIP DEBURRER Performed On: 08/15/2014 13:11 STRIP DEBURRER by MILA ALBERT Intake Chief Complaint : Sore throat, headache. Onset of Symptoms : Symptoms began a few days ago Temperature Oral : 36.6 DegC(Converted to: 97.9 DegF) Peripheral Pulse Rate : 100 /min Respiratory Rate : 20 /min Systolic Blood Pressure : 120 mmHg Diastolic Blood Pressure : 72 mmHg NIBP Mean : 88 mmHg BP Location : Right upper extremity Blood Pressure Cuff Size : Regular Actual Weight : 94 kg(Converted to: 207 lb 4 oz) Dosing Weight Clinic : 94 kg MILA ALBERT - 08/15/2014 13:11 STRIP DEBURRER General Info Information Given By : Patient Preferred Communication Mode : Verbal Languages : Hong Konger Is Patient Female and 13-50 no hysterectomy : Yes Status : Patient denies Are you ? : No MILA ALBERT - 08/15/2014 13:11 STRIP DEBURRER Subjective Pain Symptoms : No MILA ALBERT 08/15/2014 13:11 STRIP DEBURRER Dependent Habits Tobacco Use/Currently Using : Yes Exposure to Tobacco Smoke : Patient smokes Smoking Status : Current every day smoker MILA ALBERT 08/15/2014 13:11 STRIP DEBURRER Tobacco Use Grid Type : Cigarettes Cigarette Use Packs/Day : 0.4 MILA ALBERT - 08/15/2014 13:11 STRIP DEBURRER Caffeine Use Grid Caffeine Use : Current Type : Soft drinks Frequency : Occasionally MILA ALBERT - 08/15/2014 13:11 STRIP DEBURRER Recreational Drug Use Grid Frequency : Occasionally MILA ALBERT - 08/15/2014 13:11 STRIP DEBURRER ID Screen Travel Within Last 21 Days : No MILA ALBERT - 08/15/2014 13:11 STRIP DEBURRER Source: [facility] POWERCHART Document Id: [id number] STRIP DEBURRER!41 P DEBURRER documented in 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 Plan of Treatment Not on filedocumented as of 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 Procedures Procedure Name Priority Date/Time Associated Diagnosis Comme nts RAPID STREP A Routine 08/15/2014 4:24 PM Results for this SCREEN STRIP DEBURRER procedure are i n the results section. documented in 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 Results Rapid Strep A Screen (08/15/2014 4:24 PM STRIP DEBURRER) [facility] Method Time Signature HXRapid Strep POWERCHART Confirmation HXFinal Negative for POWERCHART Group A Strep by culture. Specimen (Source) Anatomical Collection Method Collection Time Re ceived Time Location / / Volume Laterality Throat 08/15/2014 4:24 PM STRIP DEBURRER Historical Provider LAB MICROBIOLOGY - GENERAL O RDERABLES Performing Organization Address City/State/ZIP Code Phon e Number POWERCHART documented in 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 Visit Diagnoses Not on filedocumented in 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 Additional Health Concerns Assessment Noted Time PHQ-9 Depression Total Score: 3 08/04/2014 10:15 AM CS T documented as of 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
--- OUTSIDE RECORDS SUMMARY | 2022-07-11 09:21 | XMS_ITS | Encounter Summary ---
:1990 Author Organization [facility] Address [address] [place] [address] Care Team Providers Name Role Phone Elsewhere, Pcp Primary Care Provider Unavailable Encounter Details Date Type Department Care Team Description 11/01/2021 Hospital Encounter Department of Satcy Pearl, Elsa dickinson Vaginal; Laboratory Medicine Ryan OVALLESNPatel, Kandi willingham Vaginal in [place], [place] R.N. [address] [place] [address] [place] [address] [place], [place] [phone] Social History Tobacco Use Types Packs/Day [...] Sig Dispensed Refills Start Date End Date metroNIDAZOLE (FLAGYL) 500 Take 1 tablet (500 14 tablet 0 0 11/01/2021 11/08/2021 mg tablet mg total) by mouth 2 (two) times a day for 7 days. ARIPiprazole (ABILIFY) 2 Take 2 mg by mouth 0 11/25/2021 mg tablet daily. FLUoxetine (PROzac) 60 mg Take 60 mg by mouth 0 11/25/2021 tablet daily. lamoTRIgine (LaMICtal) 150 Take 300 mg by 0 11/25/2021 mg tablet mouth daily. documented as of 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 Plan of Treatment Not on filedocumented as of 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 Procedures Procedure Name Priority Date/Time Associated Comments Diagnosis HUMAN CHORIONIC Routine 11/01/2021 12:29 Bleeding Vagina l Results for this GONADOTROPIN (HCG), PM CLEANING MATRON Discharge Vaginal pro cedure are in ERVIN, the results section. documented in 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 Results hCG (Human Chorionic Gonadotropin), Quantitative, (11/01/2021 12:29 PM CLEANING MATRON) P athologist Signature HCG, <0.5 <5 IU/L 11/01/2021 AUST Quantitative, 2:40 PM CLEANING MATRON , P Comment: Biotin has been identified by the bety chapa as a potential interfering substance. ??Higher concentr ations of biotin may be found in multivitamins, hair/nail supple ments, and workout supplements. ??If the result does not ma h clinical observations, repeat testing after patient refrains fr om the use of supplements for at least 12 hours. Specimen Anatomical Collection Method Collection Time Receive d Time (Source) Location / / Volume Laterality Blood (Blood, 11/01/2021 12:29 11/01/2021 1:04 Venous) PM CLEANING MATRON PM CLEANING MATRON Stacy Pearl APRN, C.N.P., R.N. LAB BLOOD ADD-ON Performing Organization Address City/State/ZIP Code Phon e Number [facility]- [address] [place] [address] [facility] [place], [place] [phone] [place] [address] documented in 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 Visit Diagnoses Diagnosis Bleeding Vaginal Discharge Vaginal documented in 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 Additional Health Concerns Assessment Noted Time PHQ-9 Depression Total Score: 7 11/29/2015 11:32 AM CS T documented as of 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 Care Teams Chute Man Relationship Specialty Start Date End Date Elsewhere, Pcp PCP - General 05/29/19 documented as of 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
--- OUTSIDE RECORDS SUMMARY | 2022-07-11 09:21 | XMS_ITS | Encounter Summary ---
:1990 Author Organization [facility] Address [address] [place] [address] Care Team Providers Name Role Phone Elsewhere, Pcp Primary Care Provider Unavailable Reason for Visit Reason Comments Vaginal Discharge Abdominal Pain COVID Nurse Line Encounter Details Date Type Department Care Team Description 11/01/2021 Nurse Triage Department of Family Emily Gonzalez Vag inal Discharge; Medicine, Moustapha Pacheco R.N. Abdominal Pain; [facility], in [place] [address] [address] [facility] Nurse Line [place], [place] [address] [place] [id number] [place] [address] [phone] Social History Tobacco Use Types Packs/Day Years [...] 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 Miscellaneous Notes Telephone Encounter - Emily Gonzalez R.N. - 11/01/2021 9:43 AM TANBARK PEELER COVID-19 Nurse Line Screening ASSESSMENT Initial Screening [...] No further concerns noted. PLAN Endpoint recommendation: Testing not indicated at this time Standard Care Points -Get a COVID -19 vaccine as soon as you can if not fully vaccinated. -Wash hands frequently with soap and water, use hand defensive line coach if soap and water aren't available. -Wear [...] care: Yes The following references were used: [facility] novel coronavirus (COVID- 19) resources ARK PEELER Telephone Encounter - Emily Gonzalez R.N. - 11/01/2021 9:33 AM TANBARK PEELER Chief Complaint / Reason for Call Patient is a 31 y.o. female calling regarding Vaginal Discharge, Abdominal Pain, and COVID Nurse Line. Assessment Concern: Reports vaginal discharge and minimal bleeding. Reports small clots, but blood present mainly on toilet tissue. Reports green, clear, white color discharge. Denies fever, but reports abdominal cramping LLQ & nausea that is intermittent. Rates pain 7/10. Denies urinary symptoms, states did take a test which was negative. Present for: 4 days Home cares tried: nothing Calling to request: Advice/appointment The recommended disposition is See a health care provider within 4 hours. Patient was warm transferred to [place] at the clinic for further assistance. Care Advice Patient/Caregiver understands and will follow care advice?: Yes, able to teach back SEE PCP WITHIN 24 HOURS: * IF OFFICE WILL BE OPEN: You need to be examined within the next 24 hours. Call your doctor (or POWER PLANT ASSISTANT/PA) when the office opens and make an [...] needed to evaluate and manage the patient. TEST, WHEN IN DOUBT: * If there is a chance that you might be , use a urine test. * You can buy a test at the Close. * It works best if you test your first urine in the morning. * Call back if you are * Follow the instructions included in the package. CALL BACK IF: * Severe pain lasts over 1 hour * Constant pain lasts over 2 hours * You become worse. Reason for Disposition ? ? [1] Constant abdominal pain AND [2] present > 2 hours Protocols used: VAGINAL [id number] ARK PEELER documented in 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 Plan of Treatment Not on filedocumented as of 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 Visit Diagnoses Not on filedocumented in 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 Additional Health Concerns Assessment Noted Time PHQ-9 Depression Total Score: 7 11/29/2015 11:32 AM CS T documented as of 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 Care Teams Pottery Decorator Relationship Specialty Start Date End Date Elsewhere, Pcp PCP - General 05/29/19 documented as of 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
--- OUTSIDE RECORDS SUMMARY | 2022-07-11 09:21 | XMS_ITS | Encounter Summary ---
:1990 Author Organization [facility] Address [address] [place] [address] Care Team Providers Name Role Phone Unavailable Primary Care Provider Unavailable Encounter Details Date Type Department Care Team Description 08/04/2014 Hospital Encounter HX [facility] Sophia Leos M.D. Social History Tobacco Use Types Packs/Day Years Used Date Smoking Tobacco: Never Assessed Sex Assigned at Date Recorded Not on file documented as of 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 Last Filed Vital Signs Vital Sign Reading Time Taken Comments Blood Pressure 124/68 08/04/2014 10:03 AM STALLION KEEPER Pulse 68 08/04/2014 10:03 AM STALLION KEEPER Temperature - - Respiratory Rate 18 08/04/2014 10:03 AM STALLION KEEPER Oxygen Saturation - - Inhaled Oxygen Concentration - - Weight 91.9 kg (202 lb 9.6 oz) 08/04/2014 10:03 AM STALLION KEEPER Height 164 cm (5' 4.57) 08/04/2014 10:03 AM STALLION KEEPER Body Mass Index 34.17 08/04/2014 10:03 AM STALLION KEEPER documented in 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 Progress Notes Neha Montalvo M.D. - 08/04/2014 9:55 AM CST [id number] CHIEF COMPLAINT/REASON FOR VISIT Follow up on Adderall medication HISTORY OF PRESENT ILLNESS Yolanda is a 24 year old female presenting today for a follow up on her Adderall medication. She states that she is doing well and is tolerating her Adderall XR 30 mg well. Her last visit on 03/21/14 she complained of sleeping problems. Today, Yolanda states that this has not changed but she has been dealing with this for years and she can handle it fine. Yolanda also has a complaint about her ears and feels as though she has a lot of wax built up in them. MEDICATIONS Reviewed and updated in the EMR dated 08/04/14. ALLERGIES Reviewed and updated in the EMR dated 08/04/14. VITAL SIGNS HEIGHT: 164 cm. WEIGHT: 91.9 kg. BMI: 34.17 kg/m2. TEMP: 37.2 Deg C. PULSE: 68 /min. RESP RATE: 18 /min. SYSTOLIC: 124 mmHg. DIASTOLIC: 68 mmHg. PHYSICAL EXAMINATION GENERAL: Well developed female in no acute distress. ENT: Both TMs moderate amount of cerumen present. Elected to flush them. IMPRESSION/REPORT/PLAN 1. ADHD, under good control Plan: Refilled her Adderall 30 mg daily today. 2. Bilateral impacted cerumen Plan: Elected to have her ears flushed today. This document serves as a record of services personally performed by Dr. Neha Leos. It was created on their behalf by Rosemary Katz, a trained medical research associate. The creation of this record is based on the scribe's personal observations and the provider's statements to them. This document has been checked and approved by the attending provider. Neha Leos M.D./ Electronically Signed By: NEHA LEOS MD On: 08/05/2014 09:38 PM Source: [facility] MHSDOLBEYNONRADSYS Document Id: [id number] LION KEEPER documented in 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 Miscellaneous Notes Miscellaneous - Neha Montalvo M.D. - 08/04/2014 10:41 AM STALLION KEEPER Ambulatory Patient Summary [facility] [address] [place], [place] [id number] Visit Information Name: YOLANDA LEONE [facility] Number: [id number] Current Date: 08/04/2014 10:41:40 Physicians Attending Provider: NEHA LEOS MD Primary Care Provider: NEHA LEOS MD YOLANDA LEONE has been given the [...] Take Indications/Special Instructions/Comments/Notes for Patient Medication Changes/Routing dextroamphetamine-amphetamine (Adderall XR 30 mg oral capsule, extended release) 1 cap, Oral, once aday (in the morning) ADHD This is a CHANGE Routed to Printer medroxyPROGESTERone (Depo-Provera Contraceptive 150 mg/mL intramuscular suspension) 1 Milliliter, Intramuscular, every 90 days RECURRING ORDER, GIVE EVERY 12 WEEKS Stop Taking the Following Medications: Medication list as of 08-04-14 10:41 Attention: If you have any medications at home that are not on this list, DO NOT take them until youcontact your provider for clarification. Give a copy of your medication list to your primary care provider. Update your medication list any time medications or doses are changed and carry your medication list at all times in case of emergency. Electronically Signed By: NEHA LEOS MD Signed On:04-AUG-2014 10:41:36 Your Allergies & Intolerances Substance Reaction Symptoms [...] appointment detail needed. Your Goals/Additional instructions: Source: [facility] POWERCHART Document Id: [id number] LION KEEPER Miscellaneous - Neha Montalvo M.D. - 08/04/2014 10:41 AM STALLION KEEPER Ambulatory Discharge Medication List [address] [id number] Visit Information Name: YOLANDA LEONE [facility] Number: [id number] Visit Date: 08/04/2014 10:41:39 Attending Provider: NEHA LEOS MD Primary Care Provider: NEHA LEOS MD YOLANDA LEONE has been given the following list of medications: Your Medications It is important to take your medications as directed. Use a pill box or chart to help remind you to take your medications. Please let your doctor or nurse know if you have problems taking your medications. Medication/Strength How to Take Indications/Special Instructions/Comments/Notes for Patient Medication Changes/Routing dextroamphetamine-amphetamine (Adderall XR 30 mg oral capsule, extended release) 1 cap, Oral, once aday (in the morning) ADHD This is a CHANGE Routed to Printer medroxyPROGESTERone (Depo-Provera Contraceptive 150 mg/mL intramuscular suspension) 1 Milliliter, Intramuscular, every 90 days RECURRING ORDER, GIVE EVERY 12 WEEKS Stop Taking the Following Medications: Medication list as of 08-04-14 10:41 Attention: If you have any medications at home that are not on this list, DO NOT take them until youcontact your provider for clarification. Give a copy of your medication list to your primary care provider. Update your medication list any time medications or doses are changed and carry your medication list at all times in case of emergency. Electronically Signed By: NEHA LEOS MD Signed On:04-AUG-2014 10:41:36 Additional Information: Source: [facility] POWERCHART Document Id: [id number] LION KEEPER Miscellaneous - Conversion, Historical Provider Ser - 08/04/2014 10:15 AM STALLION KEEPER PHQ-9 PHQ-9 Entered On: 08/14/2014 15:09 STALLION KEEPER Performed On: 08/04/2014 10:15 STALLION KEEPER by JOYA PHOENIX-9 Little interest or pleasure in doing things : Not at all Feeling down, depressed, or hopeless : Not at all Trouble falling or staying asleep, or sleeping too much : More than half the days Feeling tired or having little energy : Several days Poor appetite or overeating : Not at all Feeling bad about yourself or that you are a failure : Not at all Trouble concentrating on things : Not at all Moving or speaking slowly; restless or fidgety : Not at all Thoughts that you would be better off /hurting self : Not at all PHQ-9 Calculated Score : 3 Problems make work, home, or dealing with others : Somewhat difficult JOYA PHOENIX - 08/14/2014 15:08 STALLION KEEPER Source: [facility] POWERCHART Document Id: [id number] STALLION KEEPER!13 Miscellaneous - Lori Paris L.P.N. - 08/04/2014 10:03 AM CST Adult Transitional Nurse Intake/History Adult Transitional Nurse Intake/History Entered On: 08/04/2014 10:07 STALLION KEEPER Performed On: 08/04/2014 10:03 STALLION KEEPER by LORI PARIS Intake Chief Complaint : F/U 3 month on Adderall medication Temperature Oral : 37.2 DegC(Converted to: 99.0 DegF) Peripheral Pulse Rate : 68 /min Respiratory Rate : 18 /min Heart Rhythm : Regular Systolic Blood Pressure : 124 mmHg Diastolic Blood Pressure : 68 mmHg NIBP Mean : 87 mmHg BP Location : Right upper extremity Blood Pressure Cuff Size : Large Height : 164 cm(Converted to: 5 ft 5 inch(es), 65 inch(es)) Actual Weight : 91.9 kg(Converted to: 202 lb 10 oz) Weight Source : Standing scale Dosing Weight Clinic : 91.9 kg Clinic BSA : 2.05 Body Mass Index : 34.17 kg/m2 LORI PARIS - 08/04/2014 10:03 STALLION KEEPER General Info Languages : Luxembourgish Is Patient Female and 13-50 no hysterectomy : Yes Status : Patient denies Are you ? : No LORI PARIS - 08/04/2014 10:03 STALLION KEEPER Subjective Pain Symptoms : No LORI PARIS - 08/04/2014 10:03 STALLION KEEPER Dependent Habits Tobacco Use/Currently Using : Yes Tobacco Use/Advised to Quit : Yes Exposure to Tobacco Smoke : Patient smokes Smoking Status : Current every day smoker LORI PARIS - 08/04/2014 10:03 STALLION KEEPER Tobacco Use Grid Type : Cigarettes Cigarette Use Packs/Day : 0.4 RAINA LORI Barry - 08/04/2014 10:03 STALLION KEEPER Caffeine Use Grid Caffeine Use : Current Type : Soft drinks Frequency : Occasionally RAINA LORI Barry - 08/04/2014 10:03 STALLION KEEPER Recreational Drug Use Grid Frequency : Occasionally RAINA LORI Barry - 08/04/2014 10:03 STALLION KEEPER ID Screen Travel Within Last 21 Days : No RAINA LORI Barry - 08/04/2014 10:03 STALLION KEEPER [facility] Document Id: [id number] STALLION KEEPER!44 LION KEEPER documented in 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 Plan of Treatment Not on filedocumented as of 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 Visit Diagnoses Not on filedocumented in 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 Additional Health Concerns Assessment Noted Time PHQ-9 Depression Total Score: 3 08/04/2014 10:15 AM CS T documented as of 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
--- OUTSIDE RECORDS SUMMARY | 2022-07-11 09:21 | XMS_ITS | Encounter Summary ---
:1990 Author Organization [facility] Address [address] [place] [address] Care Team Providers Name Role Phone Charissa Gilbert P.A.-C. Primary Care Provider [phone] Reason for Visit Reason Onset Date Comments Scheduled Outreach 04/15/2018 SO Letter Encounter Details Date Type Department Care Team Description 04/15/2018 Clinical Department of [place], Scheduled Outr each Communication Family MedicineCharsisa, (SO Letter ) [facility] [address] [address] [place], [place] [phone] (Work) [phone] Social History Tobacco Use Types Packs/Day Years Used Date Smoking Tobacco: Every Day Sex Assigned at Date Recorded Not on file documented as of 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 Miscellaneous Notes Telephone Encounter - Gemini Velazquez - 04/15/2018 3:45 PM CDT Letter sent. Patient is due for the following: Health Maintenance Due Topic Date Due ??? Pap/HPV Screening 11/04/2016 documented in 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 Plan of Treatment Not on filedocumented as of 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 Visit Diagnoses Not on filedocumented in 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 Additional Health Concerns Assessment Noted Time PHQ-9 Depression Total Score: 7 11/29/2015 11:32 AM CS T documented as of 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 Care Teams Histology Technician Relationship Specialty Start Date End Date Charissa Gilbert P.A.-C. PCP - General 03/12/17 05/28/19 documented as of 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
--- OUTSIDE RECORDS SUMMARY | 2022-07-11 09:21 | XMS_ITS | Encounter Summary ---
:1990 Author Organization [facility] Address [address] [place] [address] Care Team Providers Name Role Phone Elsewhere, Pcp Primary Care Provider Unavailable Reason for Visit Reason Comments Vaginal Bleeding Encounter Details Date Type Department Care Team Description 10/30/2021 Nurse Triage NURSE TRIAGE Alexander Doherty R.N. Vaginal Bleeding [address] [place], [place] [phone] Social History Tobacco Use Types Packs/Day Years [...] 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 Miscellaneous Notes Telephone Encounter - Alexander Doherty RMayurN. - 10/30/2021 5:04 PM CST Chief Complaint / Reason for Call Patient is a 31 y.o. female calling regarding Vaginal Bleeding. Assessment Concern: Yolanda calls in requesting medical advice after she's been on depo since she was 16 years old and 3 months ago stopped depo. Patient reports mild vaginal bleeding with mild cramping. Denies any fever. The recommended disposition is Home Care. Reason for Disposition ??? Normal menstrual cramps Protocols used: ABDOMINAL PAIN - MENSTRUAL [id number] Care Advice Patient/Caregiver understands and will follow care advice?: Yes, able to teach back HOME CARE: * You should be able to treat this at home. REASSURANCE AND EDUCATION: * Menstrual cramps occur in 50% of women. * Treatment with ibuprofen or naproxen usually helps reduce the pain. CALL BACK IF: * Severe pain and not better after taking ibuprofen or naproxen * Menstrual cramps cause you to miss work, school, or other important activities * Menstrual cramps last over 3 days * You become worse. CARE ADVICE given per Abdominal Pain, Menstrual Cramps (Adult) guideline N BUILDING MATERIALS DISTRIBUTOR documented in 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 Plan of Treatment Not on filedocumented as of this encounter Visit Diagnoses Not on filedocumented in this encounter Additional Health Concerns Assessment Noted Time PHQ-9 Depression Total Score: 7 11/29/2015 11:32 AM CS T documented as of this encounter Care Teams Entry Level Recruiter Relationship Specialty Start Date End Date Elsewhere, Pcp PCP - General 05/29/19 documented as of this encounter
--- OUTSIDE RECORDS SUMMARY | 2022-07-11 09:21 | XMS_ITS | Encounter Summary ---
:1990 Author Organization [facility] Address [address] [place] [address] Care Team Providers Name Role Phone Unavailable Primary Care Provider Unavailable Encounter Details Date Type Department Care Team Description 10/04/2014 Hospital Encounter HX [facility] Nancy Mcconnell, Tracie [address] [place] [address] BILL Dominguez [phone] (Wo rk) Social History Tobacco Use Types Packs/Day Years Used Date Smoking Tobacco: Never Assessed Sex Assigned at Date Recorded Not on file documented as of this encounter Last Filed Vital Signs Vital Sign Reading Time Taken Comments Blood Pressure 98/56 10/04/2014 7:46 AM HVAC REFRIGERATION TECHNICIAN Pulse 68 10/04/2014 7:46 AM HVAC REFRIGERATION TECHNICIAN Temperature - - Respiratory Rate 20 10/04/2014 7:46 AM HVAC REFRIGERATION TECHNICIAN Oxygen Saturation - - Inhaled Oxygen Concentration - - Weight 95.7 kg (210 lb 15.7 oz) 10/04/2014 7:46 AM HVAC REFRIGERATION TECHNICIAN Height 164 cm (5' 4.57) 10/04/2014 7:46 AM HVAC REFRIGERATION TECHNICIAN Body Mass Index 35.58 10/04/2014 7:46 AM HVAC REFRIGERATION TECHNICIAN documented in this encounter Progress Notes Nancy Bernard - 10/04/2014 7:39 AM CST [id number] CHIEF COMPLAINT/REASON FOR VISIT Right breast swelling and pain and stomach flu. HISTORY OF PRESENT ILLNESS Yolanda is a 24-year-old female who presents to the clinic today for 2 different concerns. Her main concern today is right lateral breast swelling and pain. The pain and swelling are both intermittent,present about 50% of the time. Symptoms have been ongoing for about 3 months now, not getting any better or worse, just staying the same. She has a lot of swelling and tenderness over the right lateralbreast and radiating into the right axillary region. Her entire breast feels very swollen and much larger than her left breast when she does experience the symptoms. She states that her right breast isalways a little bit larger, but will be significantly larger when she notices the swelling. She has not noticed any swelling today. This is a new problem. She has never had anything like this in the past. She has not noticed any redness or warmth. No nipple changes or nipple discharge. No skin changes. She has no personal history of breast disease or problems. She does report that her paternal aunt was diagnosed with breast cancer in her late 40s. She does not get menses, she has been on Depo for con traception since she was 16 years old. She has not changed her caffeine or alcohol use. No new activities or exercises which could be contributing. She has never had any pregnancies. She also believes she has the stomach flu. Symptoms started about 3 and a half days ago. She has been nauseated and had episodes of vomiting. She vomited 3 times yesterday, but has not vomited yet today. She has had multiple episodes of diarrhea daily. She has had fever, 99.5 degrees Fahrenheit last night. Two days ago, temp was up to 101 degrees Fahrenheit. She did take some ibuprofen this morning at 6 a.m., about 2 hours ago. Appetite has been a bit decreased, but she has been able to eat some. She does not have any abdominal pain. No cough, rhinorrhea or sore throat. She did have a little bit ofan earache a couple days ago, but that seems to have resolved. No blood in the stool. No recent travel or known consumption of raw, undercooked foods. No others with similar symptoms. She did miss workon Thursday and Thursday this week. MEDICATIONS Reviewed per EMR on 10/04/2013. ALLERGIES Naproxen. VITAL SIGNS Weight 95.7 kg. Body mass index 35.58 kg/m2. Temp 36.4 C. Pulse 68. Respiratory 20 per minute. Blood pressure 98/56. PHYSICAL EXAMINATION GENERAL: Alert, oriented female. Well developed and overweight, and in no acute distress. SKIN: Intact without suspicious rash or lesion. ENT: TMs clear. Nonerythematous bilaterally. Oral mucosa is moist and pink, showing fair hydration. A little bit dry. Posterior pharynx is negative for edema, erythema, or exudate. NECK: Supple. BREASTS: Upon examination, right breast is slightly larger than the left, but no significant swelling noticed today. The left breast exam is without pain or mass. Examination of the right breast does reveal tenderness over the lateral right breast. She is also tender in the right axillary region. No palpable mass, organomegaly. No nipple changes or discharge. HEART: Regular rate and rhythm. S1 and S2, without murmur. LUNGS: Lungs clear to auscultation bilaterally. No wheezes or crackles. ABDOMEN: Soft and nondistended. She does have a little bit of tenderness over the epigastrium, but otherwise no tenderness. No rigidity, rebound tenderness or guarding. She does have mildly hyperactivebowel sounds throughout. IMPRESSION/REPORT/PLAN 1. Right lateral breast pain and swelling. 2. Gastroenteritis, likely viral. 3. Healthcare maintenance. PLAN: 1. Plan to proceed with diagnostic ultrasound, followed by a mammogram if needed. If these are normal, I have recommended use of ibuprofen and/or Tylenol, heat or ice. She may also try Biofreeze or BenGay type agent. 2. Discussed with Yolanda that I believe that her illness is viral and will be self-limiting. For her nausea, we did discuss a trial of Zofran 4 mg ODT every 8 hours as needed nausea. Prescription sentto her pharmacy. She may use [id number] Imodium for her diarrhea. We discussed working on a bland diet, BRAT diet, avoiding sugary beverages or foods and dairy products. No spicy or greasy foods.Pushing fluids. She may try low-calorie Gatorade or Powerade for oral hydration. Follow up if symptoms worsen or do not improve over the next few days. Work note is given. Nancy Bernard P.A.-C/aracely Electronically Signed By: NANCY BERNARD PA-C On: 11/27/2014 10:28 AM Source: [facility] MHSDOLBEYNONRADSYS Document Id: [id number] REFRIGERATION TECHNICIAN documented in this encounter Miscellaneous Notes Miscellaneous - Trent Mortensen RKameron - 12/26/2014 2:06 PM CDT Med Management- Adderall XR Document Contains Addenda Addendum by ANNA GUAMAN LPN on 27 December 2014 08:13:06 CDT note included in with medications, taken to info desk Addendum by NANCY BERNARD PA-C on 26 December 2014 16:46:47 CDT From: NANCY BERNARD PA-C To: ALEXANDR Bernard Nurse; Sent: 12/26/2014 16:46:47 CDT Subject: RE: Med Management- Adderall XR Please notify patient that scripts have been printed for November and December. However, these scripts have previously been filled by Neha Tillman. I have never discussed with her. She will be due for med review the end of December/early January and will need to schedule for further refills. Addendum by NANCY BERNARD PA-C on 26 December 2014 16:43:55 CDT Approved Order:dextroamphetamine-amphetamine (Adderall XR 30 mg oral capsule, extended release) 1 cap(s) PO Daily AM ADHD- HyVee/Owat Qty: 30 cap(s) Refills: 0 Substitutions Allowed Print - [id number] Signed by NANCY BERNARD PA-C 12/26/2014 16:43:49 From: TRENT MORTENSEN ([facility]) To: NANCY BERNARD PA-C; Sent: 12/26/2014 14:06:11 CDT Subject: Med Management- Adderall XR On hold pending signature Order:dextroamphetamine-amphetamine (Adderall XR 30 mg oral capsule, extended release) 1 cap(s) PO Daily AM ADHD- HyVee/Owat Qty: 30 cap(s) Refills: 0 Substitutions Allowed Print - [id number] on [employer] (from [id number]) in session 73 Caller is: ( ) Patient ( ) Mother ( ) Father ( ) Spouse ( ) Daughter ( ) Son ( ) Pharmacy ( ) Other: Provider: Marco Antonio Pharmacy: [facility] Name of Medications Needing Refill: Adderall XR Last Refill Date: 11-30-14 Additional Information: Last / Future Appointment: last appt: 10-04-14 future appt: none Disposition: ( ) Send to Pharmacy ( ) Call to Pharmacy ( ) 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 [id number] at 02/22/2017 9:17 PM CDT Miscellaneous - Trent Collins C.MMichele - 10/27/2014 1:33 PM CST Med Management Document Contains Addenda Addendum by ANNA GUAMAN LPN on 30 October 2014 10:17:23 HVAC REFRIGERATION TECHNICIAN taken to information desk Addendum by NANCY BERNARD PA-C on 27 October 2014 17:37:10 HVAC REFRIGERATION TECHNICIAN From: NANCY BERNARD PA-C To: ALEXANDR Bernard Nurse; Sent: 10/27/2014 17:37:10 HVAC REFRIGERATION TECHNICIAN Subject: RE: Med Management In your box. Addendum by NANCY BERNARD PA-C on 27 October 2014 17:37:01 HVAC REFRIGERATION TECHNICIAN Approved Order:dextroamphetamine-amphetamine (Adderall XR 30 mg oral capsule, extended release) 1 cap(s) PO Daily AM ADHD Qty: 30 cap(s) Refills: 0 Substitutions Allowed Print - [id number] Signed by NANCY BERNARD PA-C 10/27/2014 17:36:57 From: TRENT COLLINS CMA ( Physical Medicine Rehab Nurse) To: NNACY BERNARD PA-C; Sent: 10/27/2014 13:33:30 HVAC REFRIGERATION TECHNICIAN Subject: Med Management On hold pending signature Order:dextroamphetamine-amphetamine (Adderall XR 30 mg oral capsule, extended release) 1 cap(s) PO Daily AM ADHD Qty: 30 cap(s) Refills: 0 Substitutions Allowed Print - [id number] Caller is: ( ) Patient ( ) Mother ( ) Father ( ) Spouse ( ) Daughter ( ) Son ( x) Pharmacy ( ) Other: Provider: Dr. 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 - 10/06/2014 4:24 PM CST Reminder Ms month f/u mammo Document Contains Addenda Addendum by PAULINO BATISTA RN on 05 April 2015 12:38:29 CDT Patient no showed 6 month f/u appt today. Patient called and she does not want to persue at this time. Will f/u with PCP for annual exams. From: PAULINO BATISTA RN To: PAULINO BATISTA RN; Cc: JAYE COVINGTON; Sent: 10/06/2014 16:24:07 HVAC REFRIGERATION TECHNICIAN Show up: 04/05/2015 08:00:00 CDT Subject: Reminder Ms month f/u mammo Please Remember to: Patient due for short term follow up on 04/05/2015. Please verify if images have been completed. PATIENT: ( ) Call Patient ( ) Ask Patient to ( ) ( ) Call Relative ( ) Schedule Patient ( ) ( ) Call for Frame Catcher ( ) Follow up on Results ( ) Other: PROVIDER: ( ) Call Physician ( ) Call Pharmacist ( ) Call Lab ( ) Other: Special Instructions: Comments: Source: [facility] [employer] Document Id: [id number] Electronically signed by [facility] [id number] at 02/22/2017 9:17 PM CDT Patricia - Trent Collins C.M.AMayur - 10/05/2014 11:20 AM CST PHQ-9 PHQ-9 Entered On: 10/05/2014 11:20 HVAC REFRIGERATION TECHNICIAN Performed On: 10/05/2014 11:20 HVAC REFRIGERATION TECHNICIAN by TRENT COLLINS [facility] PHQ-9 Little interest or pleasure in doing things : Not at all Feeling down, depressed, or hopeless : Not at all Trouble falling or staying asleep, or sleeping too much : More than half the days Feeling tired or having little energy : Not at all Poor appetite or overeating : Several days Feeling bad about yourself or that you are a failure : Not at all Trouble concentrating on things : Not at all Moving or speaking slowly; restless or fidgety : Not at all Thoughts that you would be better off /hurting self : Not at all PHQ-9 Calculated Score : 3 Problems make work, home, or dealing with others : Not difficult at all TRENT COLLINS [facility] - 10/05/2014 11:20 HVAC REFRIGERATION TECHNICIAN Source: [facility] POWERCHART Document Id: [id number] HVAC REFRIGERATION TECHNICIAN!13 REFRIGERATION TECHNICIAN Patricia - Nancy Bernard - 10/04/2014 8:21 AM CST Ambulatory Patient Summary [address] [id number] Visit Information Name: YOLANDA LEONE [facility] Number: [id number] Current Date: 10/04/2014 08:21:19 Physicians Attending Provider: NANCY BERNARD PA-C Primary Care Provider: NEHA TILLMAN MD READ, YOLANDA GREENFIELD has been given the following list of [...] days RECURRING ORDER, GIVE EVERY 12 WEEKS ondansetron (Zofran ODT 4 mg oral tablet, disintegrating) 1 Tablet(s), Oral, every 8 hours as neededfor Nausea New Routed to [place] [address] [place] [address] Stop Taking the Following Medications: Medication list as of 10-04-14 08:21 Attention: If you have any medications at home that are not on this list, DO NOT take them until youcontact your provider for clarification. Give a copy of your medication list to your primary care provider. Update your medication list any time medications or doses are changed and carry your medication list at all times in case of emergency. Electronically Signed By: NANCY BERNARD PA-C Signed On:04-OCT-2014 08:21:15 Your Allergies & Intolerances Substance Reaction Symptoms [...] appointment detail needed. Your Goals/Additional instructions: Source: [facility] POWERCHART Document Id: [id number] REFRIGERATION TECHNICIAN Miscellaneous - Nancy Bernard - 10/04/2014 8:21 AM CST Ambulatory Discharge Medication List [facility] [address] [place] [id number] Visit Information Name: YOLANDA LEONE [facility] Number: [id number] Visit Date: 10/04/2014 08:21:18 Attending Provider: NANCY BERNARD PA-C Primary Care Provider: NEHA TILLMAN MD YOLANDA LEONE has been given [...] days RECURRING ORDER, GIVE EVERY 12 WEEKS ondansetron (Zofran ODT 4 mg oral tablet, disintegrating) 1 Tablet(s), Oral, every 8 hours as neededfor Nausea New Routed to [place] [id number] [place] [address] Stop Taking the Following Medications: Medication list as of 10-04-14 08:21 Attention: If you have any medications at home that are not on this list, DO NOT take them until youcontact your provider for clarification. Give a copy of your medication list to your primary care provider. Update your medication list any time medications or doses are changed and carry your medication list at all times in case of emergency. Electronically Signed By: NANCY BERNARD PA-C Signed On:04-OCT-2014 08:21:15 Additional Information: Source: [facility] POWERCHART Document Id: [id number] REFRIGERATION TECHNICIAN Patricia - Anna Guaman L.PMayurN. - 10/04/2014 8:06 AM CST Meaningful Use Influenza Exclusion Meaningful Use Influenza Exclusion Entered On: 10/04/2014 8:07 HVAC REFRIGERATION TECHNICIAN Performed On: 10/04/2014 8:06 HVAC REFRIGERATION TECHNICIAN by ANNA GUAMAN LPN Influenza Vaccine Exclusion Influenza Vaccine Exclusion : Patient declined ANNA GUAMAN LPN - 10/04/2014 8:06 HVAC REFRIGERATION TECHNICIAN Source: [facility] [employer] Document Id: [id number] HVAC REFRIGERATION TECHNICIAN!3 REFRIGERATION TECHNICIAN Nancy Hamm - 10/04/2014 8:05 AM CST Work Excuse 04 October 2014 YOLANDA READ [address] [facility] [id number] Dear YOLANDA READ, You were examined in [...] Notes: Please excuse Yolanda from work on 10/02/14 and 10/03/14 due to illness. Sincerely, NANCY BERNARD [address] [place] [phone] Electronic Signature Electronically Signed By: NANCY BERNARD PA-C On: 04 October 2014 This document has images extracted. Source: [facility] [employer] Document Id: [id number] Patricia - Anna Guaman L.P.NMayur - 10/04/2014 7:46 AM CST Adult Lever Operator Intake/History Adult Lever Operator Intake/History Entered On: 10/04/2014 7:52 HVAC REFRIGERATION TECHNICIAN Performed On: 10/04/2014 7:46 HVAC REFRIGERATION TECHNICIAN by ANNA GUAMAN LPN Intake Chief Complaint : swelling in right breast Onset of Symptoms : since late June 2014 Ambulatory Intake Additional Information : Depo prevents MP Temperature Oral : 36.4 DegC(Converted to: 97.5 DegF) Peripheral Pulse Rate : 68 /min Respiratory Rate : 20 /min Heart Rhythm : Regular Systolic Blood Pressure : 98 mmHg Diastolic Blood Pressure : 56 mmHg NIBP Mean : 70 mmHg BP Location : Right upper extremity Blood Pressure Cuff Size : Large Height : 164 cm(Converted to: 5 ft 5 inch(es), 65 inch(es)) Actual Weight : 95.7 kg(Converted to: 211 lb 0 oz) Weight Source : Standing scale Dosing Weight Clinic : 95.7 kg Clinic BSA : 2.09 Body Mass Index : 35.58 kg/m2 ANNA GUAMAN LPN - 10/04/2014 7:46 HVAC REFRIGERATION TECHNICIAN General Info Information Given By : Patient Languages : Northern Irish Is Patient Female and 13-50 no hysterectomy : Yes Status : Patient denies Are you ? : No ANNA GUAMAN LPN - 10/04/2014 7:46 HVAC REFRIGERATION TECHNICIAN Subjective Pain Symptoms : Yes ANNA GUAMAN LPN - 10/04/2014 7:46 HVAC REFRIGERATION TECHNICIAN Pain Scale Pain Scale Verbal 0-10 : Open ANNA GUAMAN LPN - 10/04/2014 7:46 HVAC REFRIGERATION TECHNICIAN Pain Pain Assessment Grid Pain 1 Location : Breast (Comment: Swells and just under the armpit on the right side [ANNA GUAMAN LPN 10/04/2014 7:46 HVAC REFRIGERATION TECHNICIAN] ) Quality : Heavy Pain Radiation : No Aggravating Factors : None Alleviating Factors : None Associated Symptoms : None, Vomiting (Comment: Flu - vomiting [ANNA GUAMAN LPN 10/04/2014 7:46 HVAC REFRIGERATION TECHNICIAN] ) ANNA GUAMAN LPN - 10/04/2014 7:46 HVAC REFRIGERATION TECHNICIAN Dependent Habits Tobacco Use/Currently Using : Yes Exposure to Tobacco Smoke : Patient smokes Smoking Status : Current every day smoker AMRIK GUAMANTOAN Ruiz LPN - 10/04/2014 7:46 HVAC REFRIGERATION TECHNICIAN Tobacco Use Grid Type : Cigarettes Cigarette Use Packs/Day : 0.4 ATIFMARYCarlos ANNA A DIGITAL BUSINESS ANALYST 10/04/2014 7:46 HVAC REFRIGERATION TECHNICIAN Caffeine Use Grid Caffeine Use : Current Type : Soft drinks Frequency : Occasionally ANNA GUAMAN LPN - 10/04/2014 7:46 HVAC REFRIGERATION TECHNICIAN Recreational Drug Use Grid Frequency : Occasionally ANNA GUAMAN DIGITAL BUSINESS ANALYST - 10/04/2014 7:46 HVAC REFRIGERATION TECHNICIAN ID Screen Drug Resistant Organism : No Travel Within Last 21 Days : No ANNA GUAMAN LPN - 10/04/2014 7:46 HVAC REFRIGERATION TECHNICIAN Source: [facility] Document Id: [id number] HVAC REFRIGERATION TECHNICIAN!58 REFRIGERATION TECHNICIAN Miscellaneous - Anna Guaman L.P.N. - 10/04/2014 7:45 AM CST Health Assessment Health Assessment Entered On: 10/04/2014 7:46 HVAC REFRIGERATION TECHNICIAN Performed On: 10/04/2014 7:45 HVAC REFRIGERATION TECHNICIAN by ANNA GUAMAN LPN Health Assessment Complete Health Assessment Complete or Modified : Annual Health Assessment Annual Health Assessment Completed : Yes ANNA GUAMAN LPN - 10/04/2014 7:45 HVAC REFRIGERATION TECHNICIAN Nutrition Nutrition Risk Factors by History Adult : None ANNA GUAMAN LPN - 10/04/2014 7:45 HVAC REFRIGERATION TECHNICIAN Functional Current Daily Living Assistance : None ANNA GUAMAN LPN - 10/04/2014 7:45 HVAC REFRIGERATION TECHNICIAN Dependent Habits Tobacco Use/Currently Using : Yes Exposure to Tobacco Smoke : Patient smokes Smoking Status : Current every day smoker PEPITO GUAMANGERRY Ruiz LPN 10/04/2014 7:45 HVAC REFRIGERATION TECHNICIAN Tobacco Use Grid Type : Cigarettes Cigarette Use Packs/Day : 0.4 ANNA GUAMAN LPN 10/04/2014 7:45 HVAC REFRIGERATION TECHNICIAN Caffeine Use Grid Caffeine Use : Current Type : Soft drinks Frequency : Occasionally ANNA GUAMAN LPN - 10/04/2014 7:45 HVAC REFRIGERATION TECHNICIAN Recreational Drug Use Grid Frequency : Occasionally NANA GUAMAN [facility] - 10/04/2014 7:45 HVAC REFRIGERATION TECHNICIAN Psychosocial Domestic Abuse Concerns : None Synagogue Preference : MandaenANNA Weathers [facility] - 10/04/2014 7:45 HVAC REFRIGERATION TECHNICIAN Advance Directive Advanced Directives : No Advance Directive Additional Information : No ANNA GUAMAN [facility] 10/04/2014 7:45 HVAC REFRIGERATION TECHNICIAN Educ Needs Learning Style Preference Adult Grid Patient : Demonstration, Printed materials, Verbal explanation, Video/Educational TV Family : None ANNA GUAMAN [facility] 10/04/2014 7:45 HVAC REFRIGERATION TECHNICIAN Source: [facility] POWERCHART Document Id: [id number] HVAC REFRIGERATION TECHNICIAN!34 REFRIGERATION TECHNICIAN documented in this encounter Plan of Treatment Not on filedocumented as of this encounter Visit Diagnoses Not on filedocumented in this encounter Additional Health Concerns Assessment Noted Time PHQ-9 Depression Total Score: 3 10/05/2014 11:20 AM CS T documented as of this encounter
--- OUTSIDE RECORDS SUMMARY | 2022-07-11 09:21 | XMS_ITS | Encounter Summary ---
:1990 Author Organization [facility] Address [address] [place] [address] Care Team Providers Name Role Phone Unavailable Primary Care Provider Unavailable Encounter Details Date Type Department Care Team Description 01/23/2015 Hospital Encounter HX [facility] Darline Ahn M.D. Social History Tobacco Use Types Packs/Day Years Used Date Smoking Tobacco: Never Assessed Sex Assigned at Date Recorded Not on file documented as of this encounter Last Filed Vital Signs Vital Sign Reading Time Taken Comments Blood Pressure 104/62 01/23/2015 2:16 PM CDT Pulse - - Temperature - - Respiratory Rate - - Oxygen Saturation - - Inhaled Oxygen Concentration - - Weight - - Height 164 cm (5' 4.57) 01/23/2015 1:51 PM CDT Body Mass Index - - documented in this encounter Procedure Notes Shazia Melendez, R.N. 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 SHAZIA MELENDEZ - 01/23/2015 14:16 CDT Vitals/Ht/Wt Systolic Blood Pressure : 104 mmHg Diastolic Blood Pressure : 62 mmHg NIBP Mean : 76 mmHg BP Location : Right upper extremity Blood Pressure Cuff Size : Regular SHAZIA MELENDEZ - 01/23/2015 14:16 CDT Source: [facility] POWERCHART Document Id: [id number] CDT!12 documented in this encounter Miscellaneous Notes Miscellaneous - Shazia Melendez R.N. - 01/23/2015 1:57 PM CDT Depo Provera Document Contains Addenda Addendum by SHAZIA MELENDEZ on 23 January 2015 14:07:17 CDT From: SHAZIA MELENDEZ To: JOAN CHAMBERS PA-C; Sent: 01/23/2015 14:07:17 CDT Subject: RE: Depo Provera Patient notified. Thank you Addendum by JOAN CHAMBERS PA-C on 23 January 2015 14:05:54 CDT From: JOAN CHAMBERS PA-C To: SHAZIA MELENDEZ; Sent: 01/23/2015 14:05:54 CDT Subject: RE: Depo Provera Will need to schedule annual exam/med review for further refills. Addendum by JOAN CHAMBERS PA-C on 23 January 2015 14:05:25 CDT Approved Order:medroxyPROGESTERone (Depo-Provera Contraceptive 150 mg/mL intramuscular suspension) 1 mL IM Once Qty: 1 mL Refills: 0 Substitutions Allowed Don't Print - other reason (Rx) Signed by JOAN CHAMBERS PA-C 01/23/2015 14:05:22 From: SHAZIA MELENDEZ To: JOAN CHAMBERS PA-C; Sent: 01/23/2015 13:57:51 CDT Subject: Depo Provera On hold pending signature Order:medroxyPROGESTERone (Depo-Provera Contraceptive 150 mg/mL intramuscular suspension) 1 mL IM Once Qty: 1 mL Refills: 0 Substitutions Allowed Print - [id number] on [employer] (from [id number]) in session 260 Caller is: ( ) Patient ( ) Mother ( ) Father ( ) Spouse ( ) Daughter ( ) Son ( ) Pharmacy ( ) Other: Provider: Joan Chambers Pharmacy: Will receive in [facility] Name of Medications Needing Refill:Depo provera Last Refill Date:12/09/13 Additional Information:Patient here in [facility] to receive Depo provera. Can we have just a one time order? She needs to be seen for her annual exam I believe. Intial prescription written by Neha Leos. Thanks Last / Future Appointment: Disposition: ( ) Send to Pharmacy ( ) Call to Pharmacy ( ) Patient will pick up driver Script ( ) Mail Rx to Patient Source: [facility] POWERCHART Document Id: [id number] Electronically signed by Conversion, [facility] Straightener Stamper [id number] at 02/22/2017 4:05 PM CDT documented in this encounter Plan of Treatment Not on filedocumented as of this encounter Visit Diagnoses Not on filedocumented in this encounter Additional Health Concerns Assessment Noted Time PHQ-9 Depression Total Score: 3 10/05/2014 11:20 AM CS T documented as of this encounter
--- OUTSIDE RECORDS SUMMARY | 2022-07-11 09:21 | XMS_ITS | Encounter Summary ---
:1990 Author Organization [facility] Address [address] [place] [address] Care Team Providers Name Role Phone Elsewhere, Pcp Primary Care Provider Unavailable Encounter Details Date Type Department Care Team Description 11/04/2021 Clinical Communication Ur[facility] [place] Kim L, Marko OVALLES, C.N.P., [address] [place] [address] [place] [phone] [place] [address] Social History Tobacco Use Types Packs/Day [...] this encounter Miscellaneous Notes Telephone Encounter - Nesha Hickman L.P.N. - 11/05/2021 9:58 AM NUCLEAR FUEL ENRICHMENT TECHNICIAN Pt notified that a note would be at the information desk at main entrance. EAR FUEL ENRICHMENT TECHNICIAN Telephone Encounter - Stacy Pearl, CHARLETTE, C.N.P., R.N. - 11/05/2021 9:52 AM NUCLEAR FUEL ENRICHMENT TECHNICIAN Note written. Patient can picker here or access on portal. Thanks. EAR FUEL ENRICHMENT TECHNICIAN Telephone Encounter - Nesha Hickman L.P.N. - 11/05/2021 8:31 AM NUCLEAR FUEL ENRICHMENT TECHNICIAN Pt would like a work for Wednesday 11/01 and Thursday 11/02. Pt reports she was seen on Thursday for abd pain. EAR FUEL ENRICHMENT TECHNICIAN Telephone Encounter - Nancy James - 11/04/2021 3:36 PM CST Reason for Communication: Patient requesting a work note for in regard to her office visit on 11/01. Current Can Nursing/Provider leave a detailed message?: Did the patient refuse triage through Nurse line? (for symptom based concerns): Action Needed: Work note needed, Notify patient Stacy Pearl APRN, CNP last seen 11/01 Name of Medication (if relevant): Please send all scheduling replies to scheduling pool. 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
--- OUTSIDE RECORDS SUMMARY | 2022-07-11 09:21 | XMS_ITS | Encounter Summary ---
:1990 Author Organization [facility] Address [address] [place] [address] Care Team Providers Name Role Phone Unavailable Primary Care Provider Unavailable Encounter Details Date Type Department Care Team Description 12/18/2015 Hospital Encounter HX [facility] Darline Ahn M.D. Social History Tobacco Use Types Packs/Day Years Used Date Smoking Tobacco: Never Assessed Sex Assigned at Date Recorded Not on file documented as of this encounter Last Filed Vital Signs Vital Sign Reading Time Taken Comments Blood Pressure 118/76 12/18/2015 3:08 PM CDT Pulse - - Temperature - - Respiratory Rate - - Oxygen Saturation - - Inhaled Oxygen Concentration - - Weight - - Height 164 cm (5' 4.57) 12/18/2015 3:08 PM CDT Body Mass Index - - documented in this encounter Procedure Notes Dee Ward, R.N. 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 Needs test : No DEE WARD RN - 12/18/2015 15:08 CDT Vitals/Ht/Wt Apical Heart Rate : 93 /min Systolic Blood Pressure : 118 mmHg Diastolic Blood Pressure : 76 mmHg NIBP Mean : 90 mmHg BP Location : Left upper extremity Blood Pressure Cuff Size : Large Height : 164 cm(Converted to: 5 ft 5 inch(es), 65 inch(es)) DEE WARD RN - 12/18/2015 15:08 CDT Source: [facility] [employer] Document Id: [id number] CDT!13 documented in this encounter Plan of Treatment Not on filedocumented as of this encounter Visit Diagnoses Not on filedocumented in this encounter Additional Health Concerns Assessment Noted Time PHQ-9 Depression Total Score: 7 11/29/2015 11:32 AM CS T documented as of this encounter
--- OUTSIDE RECORDS SUMMARY | 2022-07-11 09:21 | XMS_ITS | Encounter Summary ---
:1990 Author Organization [facility] Address [address] [place] [address] Care Team Providers Name Role Phone Elsewhere, Pcp Primary Care Provider Unavailable Reason for Visit Reason Comments Psychiatric Evaluation Patient comes in for suicida l thoughts. States she has had thoughts tonight of wanting to hang herself with an electrical cord. Encounter Details Date Type Department Care Team Description 06/28/2020 Emergency [facility] Tung Mcmahan, Suicide Ideation (Primary Dx); System-[place] M.D. Alcohol Abuse With Intoxication Unspecif ied ([facility]) [address] [facility] [phone] DORI HAND (Work) [id number] Social History Tobacco Use Types [...] Sign Reading Time Taken Comments Blood Pressure 119/52 06/28/2020 3:15 AM CDT Pulse 113 06/28/2020 3:15 AM CDT Temperature 36.4 ??C (97.5 ??F) 06/28/2020 3:00 AM CDT Respiratory Rate 18 06/28/2020 3:00 AM CDT Oxygen Saturation 96% 06/28/2020 3:15 AM CDT Inhaled Oxygen Concentration - - Weight - - Height - - Body Mass Index - - documented in this encounter Discharge Instructions Discharge InstructionsAyaka Clarke M.D. - 06/28/2020 8:47 AM CDT Return to the emergency department if you are feeling suicidal or if you feel like you are going to hurt somebody else. Please drink in moderation AttachmentsThe following attachments cannot be sent through Care Everywhere. Suicidal Feelings: How to Help Yourself (Maori)documented in this encounter Medications at Time of Discharge Medication Sig Dispensed Refills Start Date End Date ARIPiprazole (ABILIFY) 2 Take 2 mg by mouth 0 11/25/2021 mg tablet daily. FLUoxetine (PROzac) 60 mg Take 60 mg by mouth 0 11/25/2021 tablet daily. lamoTRIgine (LaMICtal) 150 Take 300 mg by 0 11/25/2021 mg tablet mouth daily. documented as of this encounter ED Notes Ayaka Clarke M.D. - 06/28/2020 7:31 AM CDT Care of patient transferred to [place] by Dr. Tung Mcmahan. Disposition pending Sober re-evaluation. Patient was evaluated at 7:30 a.m.. She is currently clinically sober. Patient states that she is not suicidal but does recall saying things when she was intoxicated early this morning. Patient is on mood stabilizers and has an outpatient therapist. DEC to re-evaluate to commercial escrow assistant in determining final disposition . Dec reports being able to evaluate the patient and felt that she was able to be safelydischarged home with a safety plan. VITAL SIGNS BP (!) 119/52 Pulse (!) 113 Temp 36.4 ??C (Temporal) Resp 18 SpO2 96% Final Diagnoses: as of Jun 28 848 Suicide Ideation Alcohol Abuse With Intoxication Unspecified (HCC) Ayaka Clarke M.D. 06/28/2048 Nancy Cannon R.N. - 06/28/2020 4:10 AM CDT Patient brought in by her brother and fiance. Patient states that she is here voluntarily because ofsuicidal thoughts. Patient states that she has had issues with suicidal thoughts and depression since she was 15 years old. Patient has been drinking a lot the past year. But states that recently she only drinks 10 - 16 ounce beers 2-3 days a week. States that she is currently intoxicated. Tonightpatient is feeling more depressed and states she has thoughts of hanging herself with an extension cord that is on her deck. She denies any particular triggers. States that she is depressed and anxious in general. States that life just gets overwhelming sometimes. Patient states that she is here in the ER because she wants help. Nancy Cannon R.N. 06/28/20 0416 Tung Lucio M.D. - 06/28/2020 3:29 AM CDT SUBJECTIVE CHIEF COMPLAINT/REASON FOR VISIT No chief complaint on file. HISTORY OF PRESENT ILLNESS 30 year old female with past medical history of depression, ADHD, not currently on any medications, she is presenting to the emergency department with suicidal ideations. She states she has been thinking about committing suicide for many days, she states that many things have been contributing, she feels overwhelmed and wants to end her life. This evening she planned on using an electric cord and hanging herself on her deck. She was drinking alcohol this evening she estimates 10 alcoholic beverages,last 1 was 1 hour prior to arrival. Her fiance as well as her brother were concerned about her safety and therefore brought her to the emergency department for assessment. Here she denies any auditory or visual hallucinations, no homicidal ideations. She denies any ingestions. She denies any other substances. She does not have any chest pain shortness of breath no feverschills nausea vomiting, abdominal pain changes with urination or bowel movements. REVIEW OF SYSTEMS Constitutional: Negative for chills and fever. HENT: Negative for rhinorrhea. Eyes: Negative for visual disturbance. Respiratory: Negative for shortness of breath. Cardiovascular: Negative for chest pain. Gastrointestinal: Negative for blood in stool. Endocrine: Negative for polyuria. Genitourinary: Negative for dysuria and frequency. Skin: Negative for rash. Neurological: Negative for headaches. Psychiatric/Behavioral: Positive for depression and suicidal ideas. OBJECTIVE Initial Vitals Temp Pulse Heart Rate Resp BP SpO2 -- -- -- -- -- -- Pain Score -- PHYSICAL EXAMINATION HENT: Nose: Nose normal. Mouth/Throat: Mucous membranes are moist. Neck: Normal range of motion. Cardiovascular: Capillary refill: takes less than 3 seconds, Pulmonary/Chest: Effort normal. Abdominal: Soft. Musculoskeletal: Normal range of motion. Neurological: She is alert. Skin: Skin is warm. She is not diaphoretic. Psychiatric: She has a normal mood and affect. ASSESSMENT/PLAN 30-year-old female presenting to the emergency department with suicidal ideations as well as a planto kill herself by hanging. She states that she has been thinking about this however the contacts ofalcohol intake. However she is intoxicated at this point. Given her plan we will therefore observe her in the emergency department until she is sober and reassess her from a psychiatric perspective. Her plan to hang herself excludes her from detox unit. Patient signed out pending reassessment upon sobriety. ED Course as of Jun 28 619 [place] Jun 28, 2020 0555 Plan is to reassess with deck assessment when below legal limit Tung Mcmahan M.D. 06/28/20618 documented in this encounter Plan of Treatment Not on filedocumented as of this encounter Procedures Procedure Name Priority Date/Time Associated Comments Diagnosis ETHANOL, S STAT 06/28/2020 4:03 AM Results f or this CDT procedure are i n the results section. CBC WITH DIFFERENTIAL, STAT 06/28/2020 4:03 AM Results for this B CDT procedure are i n the results section. THYROID-STIMULATING STAT 06/28/2020 4:03 AM Re sults for this HORMONE-SENSITIVE CDT procedure are in (S-TSH) the results section. ACETAMINOPHEN LEVEL, S STAT 06/28/2020 4:03 AM Results for this CDT procedure are i n the results section. SALICYLATE LEVEL, S STAT 06/28/2020 4:03 AM Re sults for this CDT procedure are i n the results section. BASIC METABOLIC PANEL, STAT 06/28/2020 4:03 AM Results for this S/P CDT procedure are i n the results section. ECG STAT 06/28/2020 3:37 AM Results f or this CDT procedure are i n the results section. SARS CORONAVIRUS-2 STAT 06/28/2020 3:27 AM Res ults for this RNA, V CDT procedure are i n the results section. TEST, POCT, STAT 06/28/2020 3:27 AM Results for this U (LAB) CDT procedure are i n the results section. DRUG SCREEN URINE STAT 06/28/2020 3:27 AM Resu lts for this CDT procedure are i n the results section. documented in this encounter Results (ABNORMAL) Ethanol Level, Serum (06/28/2020 4:03 AM CDT) athologist Signature Ethanol, P 177 (H) <10 mg/dL 06/28/2020 [place] 4:27 AM CDT Specimen Anatomical Collection Method Collection Time Receive d Time (Source) Location / / Volume Laterality Blood (Blood, 06/28/2020 4:03 AM 06/28/20 4:05 Venous) CDT AM CDT Tung Mcmahan M.D. LAB BLOOD NON ADD-ON Performing Organization Address City/State/ZIP Code Phon e Number [facility] [place], [place] [address] [facility] [place] [address] [place] [facility]- [facility] [place] [address] [place] [facility] [address] Salicylate Level (06/28/2020 4:03 AM CDT) athologist Signature Salicylate, P <0.3 <30.0 mg/dL 06/28/2020 [place] 4:27 AM CDT Specimen Anatomical Collection Method Collection Time Receive d Time (Source) Location / / Volume Laterality Blood (Blood, 06/28/2020 4:03 AM 06/28/20 4:05 Venous) CDT AM CDT Tung Mcmahan M.D. LAB BLOOD ADD-ON Performing Organization Address City/State/ZIP Code Phon e Number [facility] [place], [place] [address] [facility] [place] [address] [place] [facility]- [facility] [place] [address] [place] [facility] [address] Acetaminophen Level (06/28/2020 4:03 AM CDT) Patholo gist Method Time Signature Acetaminophen, <7 Therapeutic 06/28/2020 [place] P Range: 10-30 4:27 AM CDT mcg/mL Specimen Anatomical Collection Method Collection Time Receive d Time (Source) Location / / Volume Laterality Blood (Blood, 06/28/2020 4:03 AM 06/28/20 4:05 Venous) CDT AM CDT Tung Mcmahan M.D. LAB BLOOD ADD-ON Performing Organization Address City/State/ZIP Code Phon e Number [facility] [place] [address] [facility] [place] [address] [place] [facility]- [facility] [place] [address] [place] [facility] [address] S-TSH (Thyroid-Stimulating Hormone - Sensitive) (06/28/2020 4:03 AM CDT) P athologist Signature TSH, Sensitive 3.5 0.3 - 4.2 06/28/2020 [place] mIU/L 4:31 AM CDT Comment: Biotin has been identified by the bety chpaa as a potential interfering substance. ??Higher concentr ations of biotin may be found in multivitamins, hair/nail supple ments, and workout supplements. ??If the result does not [facility] clinical observations, repeat testing after patient refrains fr om the use of supplements for at least 12 hours. Specimen Anatomical Collection Method Collection Time Receive d Time (Source) Location / / Volume Laterality Blood (Blood, 06/28/2020 4:03 AM 06/28/20 4:05 Venous) CDT AM CDT Tung Mcmahan M.D. LAB BLOOD ADD-ON Performing Organization Address City/State/ZIP Code Phon e Number [facility]- [facility] [place], [place] [address] [facility] [place] [address] [place] [facility]- [facility] [place] [address] [place] [facility] [address] (ABNORMAL) Basic Metabolic Panel (06/28/2020 4:03 AM CDT) Analysis Performed At Patho logist Time Signature Potassium, P 3.9 3.6 - 5.2 06/28/2020 [place] mmol/L 4:27 AM CDT Sodium, P 137 135 - 145 06/28/2020 [place] mmol/L 4:27 AM CDT Chloride, P 104 98 - 107 06/28/2020 [place] mmol/L 4:27 AM CDT Bicarbonate, P 20 (L) 22 - 29 06/28/2020 [place] mmol/L 4:27 AM CDT Anion Gap, P 13 7 - 15 06/28/2020 [place] 4:27 AM CDT BUN (Blood Urea 10 6 - 21 06/28/2020 [place] Nitrogen), P mg/dL 4:27 AM CDT Creatinine 0.55 (L) 0.59 - 06/28/2020 [place] 1.04 mg/dL 4:27 AM CDT eGFR-Black/Afri >90 >=60 06/28/2020 [place] can Tunisian mL/min/BSA 4:27 AM CDT Comment: ----ADDITIONAL INFORMATION---- Estimated GFR calculated using the 2009 CKD_EPI creatinine equation. eGFR Non-Black/ >90 >=60 mL/min/BSA 06/28/2020 4:27 AM CDT [place] Comment: ----ADDITIONAL INFORMATION---- Estimated GFR calculated using the 2009 CKD_EPI creatinine equation. Calcium, Total, P 8.7 8.6 - 10.0 mg/dL 06/28/2020 4:27 AM CDT [place] Glucose, P 94 70 - 140 mg/dL 06/28/2020 4:27 AM CDT A [facility] Specimen Anatomical Collection Method Collection Time Receive d Time (Source) Location / / Volume Laterality Blood (Blood, 06/28/2020 4:03 AM 06/28/20 20 4:05 Venous) CDT AM CDT Tung Mcmahan M.D. LAB BLOOD ADD-ON Performing Organization Address City/State/ZIP Code Phon e Number [facility] [place] [place] [address] [facility] [place] [address] [place] [facility]- [facility] [place] [address] [place] [facility] [address] (ABNORMAL) CBC with Differential, Blood (06/28/2020 4:03 AM CDT) [facility] Method Time Signature Hemoglobin 14.6 11.6 - 06/28/2020 [place] 15.0 g/dL 4:08 AM CDT Hematocrit 43.4 35.5 - 06/28/2020 [place] 44.9 % 4:08 AM CDT Erythrocytes 5.02 3.92 - 06/28/2020 [place] 5.13 4:08 AM CDT x10(12)/L MCV 86.5 78.2 - 06/28/2020 [place] 97.9 fL 4:08 AM CDT RBC Distrib Width 12.8 12.2 - 06/28/2020 [place] 16.1 % 4:08 AM CDT Platelet Count 405 (H) 157 - 371 06/28/2020 [place] x10(9)/L 4:08 AM CDT Leukocytes 13.6 (H) 3.4 - 9.6 06/28/2020 [place] x10(9)/L 4:08 AM CDT Neutrophils 7.98 (H) 1.56 - 06/28/2020 [place] 6.45 4:08 AM CDT x10(9)/L Lymphocytes 4.42 (H) 0.95 - 06/28/2020 [place] 3.07 4:08 AM CDT x10(9)/L Monocytes 0.71 0.26 - 06/28/2020 [place] 0.81 4:08 AM CDT x10(9)/L Eosinophils 0.45 0.03 - 06/28/2020 [place] 0.48 4:08 AM CDT x10(9)/L Basophils 0.07 0.01 - 06/28/2020 [place] 0.08 4:08 AM CDT x10(9)/L Specimen Anatomical Collection Method Collection Time Receive d Time (Source) Location / / Volume Laterality Blood (Blood, 06/28/2020 4:03 AM 06/28/20 20 4:05 Venous) CDT AM CDT Tung Mcmahan M.D. LAB BLOOD ADD-ON Performing Organization Address City/State/ZIP Code Phon e Number [facility] [place], [place] [address] [facility] [place] [address] [place] [facility]- [facility] [place] [address] [place] [facility] [address] ECG 12 Lead (06/28/2020 3:37 AM CDT) P athologist Signature Ventricular Rate 110 BPM MUSE ECG/Min NM Interval 136 ms MUSE QRSD Interval 82 ms MUSE QT Interval 336 ms MUSE QTC Interval 454 ms MUSE P Thompson 43 degrees MUSE R Thompson -2 degrees MUSE T Wave Thompson 13 degrees MUSE Specimen Anatomical Collection Method Collection Time Receive d Time (Source) Location / / Volume Laterality 06/28/2020 3:37 AM 0 6:54 CDT AM CDT Impressions MUSE - 06/28/2020 6:54 AM CDT Sinus tachycardia Voltage criteria for left ventricular hy pertrophy No previous ECGs available Reviewed by BEVERLY Rubin Narrative This result has an attachment that is no t available. Procedure Note Gorge Baird Jr., M.D. - 06/28/2020For matting of this note might be different from the original. IMPRESSION: Sinus tachycardia Voltage criteria for left ventricular hy pertrophy No previous ECGs available Reviewed by BEVERLY Rubin Tung Mcmahan M.D. ECG ORDERABLES Performing Organization Address City/State/ZIP Code Phon e Number MUSE MUSE NA SARS Coronavirus-2 RNA, V Asymptomatic (06/28/2020 3:27 AM CDT) Patholo gist Method Time Signature SARS-CoV-2 Swab, 06/28/2020 [facility] Specimen Nasopharynx 6:19 PM CDT Source SARS CoV-2 Undetected Undetected 06/28/2020 [facility] RNA, TMA 6:19 PM CDT Comment: SARS-CoV-2 RNA absent. This result does not rule out COVID-19 in the patient, as the sensitivity of the test depends o n the timing of the specimen collection and the quality of the specim en. Result should be correlated with patient's history and clinical presentat ion. ----ADDITIONAL INFORMATION---- This test is performed using the Aptima SARS-CoV-2 assay ([employer] which has received Emergency Use Authori zation (EUA) by the U.S. Food and Drug Administration. Fact sheets for this Emergency Use Autho rization (EUA) assay can be found at the following links: For Healthcare Providers: https://www.[employer] a.gov/media/554093/download For Patients: https://www.fda.gov/media/ 138325/download Specimen Anatomical Collection Method Collection Time Receive d Time (Source) Location / / Volume Laterality Varies 06/28/2020 3:27 AM 0 (Nasopharynx) CDT 10:57 AM CDT Tung Mcmahan M.D. LAB MICROBIOLOGY - GENERAL O RDERABLES Performing Organization Address City/[facility] Phon e Number [facility]- [address] [place] [phone] [place] [address] Test, POCT, Urine (lab) (06/28/2020 3:27 AM CDT) athologist Signature Negative 06/28/2020 [place] Test, POCT, U 3:59 AM CDT Specimen Anatomical Collection Method Collection Time Receive d Time (Source) Location / / Volume Laterality Urine (Urine, 06/28/2020 3:27 AM 06/28/20 20 3:53 Midstream) CDT AM CDT Tung Mcmahan M.D. LAB POCT ORDERABLES - DEVICE Performing Organization Address City/[facility] Phon e Number [facility]- [facility] [place] [phone] [facility] [place] [address] [place] [facility]- [facility] [place] [address] [place] [facility] [address] Drug Screen Urine (06/28/2020 3:27 AM CDT) athologist Signature Amphetamines, Negative Negative 06/28/2020 [place] U 4:04 AM CDT Comment: ----ADDITIONAL INFORMATION---- Glass Sagger's Cutoff: 500 ng/mL Barbiturates, U Negative Negative 06/28/2020 4:04 AM CDT A VIKRAM Comment: ----ADDITIONAL INFORMATION---- Glass Sagger's Cutoff: 200 ng/mL Benzodiazepines, U Negative Negative 06/28/2020 4:04 AM CD T [place] Comment: ----ADDITIONAL INFORMATION---- Glass Sagger's Cutoff: 150 ng/mL Buprenorphine, U Negative Negative 06/28/2020 4:04 AM CDT [place] Comment: ----ADDITIONAL INFORMATION---- Glass Sagger's Cutoff: 10 ng/mL Cocaine, U Negative Negative 06/28/2020 4:04 AM CDT [place] Comment: ----ADDITIONAL INFORMATION---- Glass Sagger's Cutoff: 150 ng/mL Methadone, U Negative Negative 06/28/2020 4:04 AM CDT [place] Comment: ----ADDITIONAL INFORMATION---- Glass Sagger's Cutoff: 200 ng/mL Methamphetamines, U Negative Negative 06/28/2020 4:04 AM C CEDRICK WALDROPA Comment: ----ADDITIONAL INFORMATION---- Glass Sagger's Cutoff: 500 ng/mL Opiates, U Negative Negative 06/28/2020 4:04 AM CDT [place] Comment: ----ADDITIONAL INFORMATION---- Glass Sagger's Cutoff: 100 ng/mL Oxycodone, U Negative Negative 06/28/2020 4:04 AM CDT [place] Comment: ----ADDITIONAL INFORMATION---- Glass Sagger's Cutoff: 100 ng/mL Phencyclidine, U Negative Negative 06/28/2020 4:04 AM CDT [place] Comment: ----ADDITIONAL INFORMATION---- Glass Sagger's Cutoff: 25 ng/mL Propoxyphene, U Negative Negative 06/28/2020 4:04 AM CDT A VIKRAM Comment: ----ADDITIONAL INFORMATION---- Glass Sagger's Cutoff: 300 ng/mL Tetrahydrocannabinol, U Negative Negative 06/28/2020 4:04 AM CDT [place] Comment: ----ADDITIONAL INFORMATION---- Glass Sagger's Cutoff: 50 ng/mL Tricyclic Antidepressants, U Negative Negative 06/28/2020 4:04 AM CDT [place] Comment: ----ADDITIONAL INFORMATION---- Glass Sagger's Cutoff: 300 ng/mL THE ABOVE DRUG SCREEN PANEL IS FOR MED ICA PURPOSES ONLY Specimen Anatomical Collection Method Collection Time Receive d Time (Source) Location / / Volume Laterality Urine (Urine, 06/28/2020 3:27 AM 06/28/20 20 3:53 Clean Catch) CDT AM CDT Tung Mcmahan M.D. LAB URINE ORDERABLES Performing Organization Address City/State/ZIP Code Phon e Number [facility] [place], [place] [address] [facility] [place] [address] [place] [facility]- [facility] [place] [address] [place] [facility] [address] documented in this encounter Visit Diagnoses Diagnosis Suicide Ideation - Primary Alcohol Abuse With Intoxication Unspecif ied (HCC) documented in this encounter Administered Medications Inactive Administered Medications - up to 3 most recent administrations Medication Order MAR Action Action Date Dose Rate Site ARIPiprazole tablet 2 mg (ABILIFY) Given 06/28/2020 5:01 AM CDT 2 mg 2 mg, oral, Daily, First dose (after last modification) on [facility] 06/28/20 at 0434 FLUoxetine capsule 60 mg (PROzac) Given 06/28/2020 5:02 AM CDT 60 mg 60 mg, oral, Daily, First dose (after last modification) on [facility] 06/28/20 at [facility], FLUoxetine orderable was interchanged for FLUoxetine tablet/capsule lamoTRIgine tablet 300 mg (LaMICtal) Given 06/28/2020 5:01 AM CDT 300 mg 300 mg, oral, Daily, First dose (after last modification) on [facility] 06/28/20 at [facility] documented in this encounter Active and Recently Administered Medications Times are shown in CDT. Scheduled Medication Order 06/26/2020 06/27/2020 06/28/2020 ARIPiprazole tablet 2 mg (ABILIFY) 0501 (Given - Provider: Nancy Cannon R.N.) 2 mg, oral, Daily, First dose (after last modification) on [facility] 06/28/20 at 0434 FLUoxetine capsule 60 mg (PROzac) 0502 (Given - Provider: Nancy Cannon R.N.) 60 mg, oral, Daily, First dose (after la st modification) on [facility] 06/28/20 at 0434, FLUoxetine orderable was interchanged for FLUoxetine tablet/capsule lamoTRIgine tablet 300 mg (LaMICtal) 0501 (Given - Provider: Nancy Cannon R.N.) 300 mg, oral, Daily, First dose (after l ast modification) on [facility] 06/28/20 at 0434 documented in this encounter Additional Health Concerns Infection Onset Date Last Indicated Resolved Time COVID19 Pending 06/28/2020 06/28/2020 06/28/2020 6:19 PM CDT Assessment Noted Time PHQ-9 Depression Total Score: 7 11/29/2015 11:32 AM CS T documented as of this encounter Care Teams Oil Spot Washer Relationship Specialty Start Date End Date Elsewhere, Pcp PCP - General 05/29/19 documented as of this encounter
--- OUTSIDE RECORDS SUMMARY | 2022-07-11 09:21 | XMS_ITS | Encounter Summary ---
:1990 Author Organization [facility] Address [address] [place] [address] Care Team Providers Name Role Phone Unavailable Primary Care Provider Unavailable Encounter Details Date Type Department Care Team Description 08/21/2014 Hospital Encounter HX [facility] Provider, [place] Social History Tobacco Use Types Packs/Day Years Used Date Smoking Tobacco: Never Assessed Sex Assigned at Date Recorded Not on file documented as of this encounter Last Filed Vital Signs Vital Sign Reading Time Taken Comments Blood Pressure 102/70 08/21/2014 2:08 PM [facility] Pulse - - Temperature - - Respiratory Rate - - Oxygen Saturation - - Inhaled Oxygen Concentration - - Weight - - Height 164 cm (5' 4.57) 08/21/2014 2:08 PM [facility] [employer] Body Mass Index - - documented in this encounter Procedure Notes Liliane Mortensen, R.N. - 08/21/2014 2:08 PM CST Depo-Provera Administration Depo-Provera Administration Entered On: 08/21/2014 14:09 [facility] Performed On: 08/21/2014 14:08 [facility] by LILIANE MORTENSEN Depo-Provera Administration Annual Exam in the Past 12 Months : Yes Last Depo-Provera Given : 05/22/2014 CDT Needs test : No LILIANE MORTENSEN - 08/21/2014 14:08 [employer] Vitals/Ht/Wt Systolic Blood Pressure : 102 mmHg Diastolic Blood Pressure : 70 mmHg NIBP Mean : 81 mmHg Height : 164 cm(Converted to: 5 ft 5 inch(es), 65 inch(es)) LILIANE MORTENSEN - 08/21/2014 14:08 [facility] [facility] [employer] Source: [facility] POWERCHART Document Id: [id number] SERVICE LINE [employer]ER!10 [facility] [employer] documented in this encounter Plan of Treatment Not on filedocumented as of this encounter Visit Diagnoses Not on filedocumented in this encounter Additional Health Concerns Assessment Noted Time PHQ-9 Depression Total Score: 3 08/04/2014 10:15 AM CS T documented as of this encounter
--- OUTSIDE RECORDS SUMMARY | 2022-07-11 09:21 | XMS_ITS | Encounter Summary ---
:1990 Author Organization [facility] Address [address] [place] [address] Care Team Providers Name Role Phone Charissa Gilbert P.A.-C. Primary Care Provider [phone] Encounter Details Date Type Department Care Team Description 12/24/2017 Orders Only Department of Family Medicine, Tammi Dominguez [facility], in [place], [place] [address] [address] [facility] [phone] Social History Tobacco Use Types Packs/Day Years [...] documented as of this encounter Care Teams Commissary Officer Relationship Specialty Start Date End Date Charissa Gilbert P.A.-C. PCP - General 03/12/17 05/28/19 documented as of this encounter
--- OUTSIDE RECORDS SUMMARY | 2022-07-11 09:21 | XMS_ITS | Encounter Summary ---
:1990 Author Organization [facility] Address [address] [place] [address] Care Team Providers Name Role Phone Elsewhere, Pcp Primary Care Provider Unavailable Encounter Details Date Type Department Care Team Description 11/01/2021 Hospital Encounter Department of [facility] Laboratory Medicine L, ROBOT DESIGNER, Periumbi lical in [place], [place] C.N.P., R.N. [address] [place] [address] [place] [id number] [place], [place] [phone] [id number] Social History Tobacco Use Types Packs/Day [...] Name Priority Date/Time Associated Diagnosis Comme nts BACTERIAL CULTURE, Routine 11/01/2021 12:56 Tenderness Resul ts for this AEROBIC + SUSC, PM HYDROMETEOROLOGIST Periumbilical procedure a re in URINE the results section. URINALYSIS WITH Routine 11/01/2021 12:56 Tenderness Results for this MICROSCOPIC PM HYDROMETEOROLOGIST Periumbilical procedure are in the results section. documented in this encounter Results (ABNORMAL) Bacterial Culture, Aerobic + Susc, Urine (11/01/2021 12:56 PM HYDROMETEOROLOGIST) Analysis Performed At [facility] [place] Urine Culture Mixed 11/02/2021 [facility] mary beth. (A) 12:18 PM HYDROMETEOROLOGIST Specimen Anatomical Collection Method Collection Time Receive d Time (Source) Location / / Volume Laterality Urine (Urine, 11/01/2021 12:56 11/01/2021 5:43 Midstream) PM HYDROMETEOROLOGIST PM HYDROMETEOROLOGIST Comment: Specimen Source Site: Urine Stacy Pearl APRN, C.N.P., R.N. LAB MICROBIOLOGY - GEN ERAL ORDERABLES Performing Organization Address City/State/ZIP Code Phon e Number [facility]- [address] [place] [address] [place] [address] [address] (ABNORMAL) Urinalysis with Microscopic: Urine, Midstream (11/01/2021 12:56 PM HYDROMETEOROLOGIST) Analysis Performed At [facility] [place] Source Urine, Urine, 11/01/2021 [facility] Midstream 1:06 PM HYDROMETEOROLOGIST Clarity Clear Clear 11/01/2021 [facility] 1:06 PM HYDROMETEOROLOGIST Color Yellow 11/01/2021 [facility] 1:06 PM HYDROMETEOROLOGIST Comment: ----REFERENCE VALUE---- Colorless Yellow Corinne Blood Moderate (A) Negative 11/01/2021 1:06 PM HYDROMETEOROLOGIST [facility] Nitrite Negative Negative 11/01/2021 1:06 PM HYDROMETEOROLOGIST [facility] Leukocyte Esterase Trace (A) Negative 11/01/2021 1:06 PM CS T [facility] Protein Negative mg/dL 11/01/2021 1:06 PM HYDROMETEOROLOGIST [facility] Comment: ----REFERENCE VALUE---- Negative Trace Glucose Negative Negative mg/dL 11/01/2021 1:[address] Ketone Negative Negative mg/dL 11/01/2021 1:[address] Bilirubin Negative Negative 11/01/2021 1:06 PM HYDROMETEOROLOGIST [facility] pH 5.0 5.0 - 8.0 11/01/2021 1:06 PM HYDROMETEOROLOGIST [facility] Specific [place] 1.023 1.001 - 1.035 11/01/2021 1:06 PM HYDROMETEOROLOGIST [facility] Urobilinogen 0.2 0.2 - 1.0 mg/dL 11/01/2021 1:06 PM CS T [facility] White Blood Cells Occ-3 /hpf 11/01/2021 1:09 PM HYDROMETEOROLOGIST [facility] Comment: ----REFERENCE VALUE---- Males: 0-3 Females: 0-10 Unknown: 0-10 Red Blood Cells Occ-2 0 - 2 /hpf 11/01/2021 1:09 PM HYDROMETEOROLOGIST [facility] Hyaline Casts 1-3 /lpf 11/01/2021 1:09 PM HYDROMETEOROLOGIST A[facility] T Squamous Cells Occ-3 /hpf 11/01/2021 1:[address] Specimen Anatomical Collection Method Collection Time Receive d Time (Source) Location / / Volume Laterality Urine (Urine, 11/01/2021 12:56 11/01/2021 1:00 Midstream) PM HYDROMETEOROLOGIST PM HYDROMETEOROLOGIST Stacy Pearl APRN, C.N.P., R.N. LAB URINE ORDERABLES Performing Organization Address City/State/ZIP Code Phon e Number [facility]- [address] [place] [address] [facility] [place], [place] [address] [place] [address] documented in this encounter Visit Diagnoses Diagnosis Tenderness Periumbilical documented in this encounter Additional Health Concerns Assessment Noted Time PHQ-9 Depression Total Score: 7 11/29/2015 11:32 AM CS T documented as of this encounter Care Teams Manager Customer Relationship Specialty Start Date End Date Elsewhere, Pcp PCP - General 05/29/19 documented as of this encounter
--- OUTSIDE RECORDS SUMMARY | 2022-07-11 09:21 | XMS_ITS | Encounter Summary ---
:1990 Author Organization [facility] Address [address] [place] [address] Care Team Providers Name Role Phone Unavailable Primary Care Provider Unavailable Encounter Details Date Type Department Care Team Description 11/29/2015 Hospital Encounter [facility] Nancy Mcconnell, Tracie [address] [place] [address] IBLL Dominguez [id number] (Wo rk) Social History Tobacco Use Types Packs/Day Years Used Date Smoking Tobacco: Never Assessed Sex Assigned at Date Recorded Not on file documented as of this encounter Last Filed Vital Signs Vital Sign Reading Time Taken Comments Blood Pressure 112/70 11/29/2015 11:30 AM ELECTRON GUN INSPECTOR Pulse 76 11/29/2015 11:30 AM ELECTRON GUN INSPECTOR Temperature - - Respiratory Rate 17 11/29/2015 11:30 AM ELECTRON GUN INSPECTOR Oxygen Saturation - - Inhaled Oxygen Concentration - - Weight 96.5 kg (212 lb 11.9 oz) 11/29/2015 11:30 AM ELECTRON GUN INSPECTOR Height 164 cm (5' 4.57) 11/29/2015 11:30 AM ELECTRON GUN INSPECTOR Body Mass Index 35.88 11/29/2015 11:30 AM ELECTRON GUN INSPECTOR documented in this encounter Progress Notes Nancy Bernard L - 11/29/2015 11:20 AM CST [id number] CHIEF COMPLAINT/REASON FOR VISIT Medication review. HISTORY OF PRESENT ILLNESS Yolanda is a 25-year-old female who presents to the clinic today for medication review. Overall, shestates that she is feeling well. She would like to have her thyroid function tested today. She states that her cousin has underactive thyroid. Yolanda notices that she has been sleeping a lot. She doeshave a known history of ADHD and takes Adderall Thursday through Thursday for this. She states that if she does not take her Adderall, she will find herself wanting to sleep a lot, sometimes for several days in a row. She states that she just feels that she is always tired. She has also been somewhat frustrated regarding weight gain. She denies any history of anemia. She is on Depo-Provera for contracepti on, and has no menses with this. She would like to have her Adderall XR 30 mg capsules refilled today. She was diagnosed with ADHD atage 14 by Psychiatry. She states that she has been on her current dose of Adderall XR 30 mg daily for several years, and this seems to be working well for her. She states she does not take it on the weekends, but finds that she really does need it when she is at work. 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 She states that if she does not take her Adderall, she finds herself easily distracted, it is more difficult for her to remember things and she has a difficult time staying on task at work. She has not had any issues with sleep or appetite due to her Adderall and would like to continue. She does report a history of depression. PHQ-9 score today is a 7. She states that she knowsthat depression is an issue for her, but she refuses to take any medication for this. She states that in the past, depression medications have made her symptoms worse. She feels that there are times that she is coping just fine with her depression and feels that she has adequate management of her sympt oms. She is requesting refills of her Depo-Provera. She had actually had a full physical at the [facility] in July of 2015. At that time, her Depo-Provera was refilled for the year; however, she would now like to return to the [facility] for her care. Therefore, she is requesting thatthe Depo- Provera be transferred [facility]. Her last Depo-Provera injection was on September 17, 2015. She did bring in her card, which instructed her to return for her next Depo-Provera shot between December 13 and December 27. She has been on Depo-Provera since she was 16 or 17 years old. She understands that there is risk of associated decreased bone density on prolonged Depo-Provera and, in fa ct, did undergo bone density testing in [place] in 2012. She denies any family history of osteoporosis and no fractures. She states that she would like to continue with Depo-Provera. She states that shecannot remember to take a control pill on a consistent basis. She states that she knows that she does not want the NuvaRing, the Nexplanon or an IUD. MEDICATIONS Per EMR on 11/28/2014. ALLERGIES Naproxen. PAST MEDICAL/SURGICAL HISTORY 1. Surgical repair of laceration to the left lower face from dog bite in 2012. 2. Status post tonsillectomy at age 16. 3. Cervical spine scoliosis. 4. Attention deficit hyperactivity disorder. 5. History of depression, currently off medication per patient choice. SOCIAL HISTORY Yolanda is single. She lives in [place]. 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 Alcohol use includes 3 to 4 drinks once per month. She is a former smoker, having quit 5 or 6months ago, and she is congratulated on that. She denies any drug use. VITAL SIGNS Weight 96.5 kg, body mass index 35.88, pulse 76 per minute, respiratory rate 17 per minute, blood pressure 112/70. PHYSICAL EXAMINATION GENERAL: Alert and oriented female. Well developed, well nourished, and in no acute distress. THYROID: No thyromegaly or mass. HEART: Regular rate and rhythm. No S1, S2, without murmur. LUNGS: Clear to auscultation bilaterally. No wheezes or crackles. Normal respiratory effort. MENTAL: Patient is pleasant. Good eye contact. Appropriate mood and affect. Normal judgment and insight. PHQ-9 score today is a 7. She denies any suicidal or self-harm ideation. IMPRESSION/REPORT/PLAN 1. Attention deficit hyperactivity disorder. 2. Contraception counseling and management. 3. Fatigue. 4. Healthcare maintenance. PLAN: 1. Controlled substance agreement has been reviewed and filled out today. See copy scanned into EMR today. I did provide prescription for Adderall XR 30 mg daily, written scripts printed and given for November, December and January. I will see her back in 6 months for her next medication review, sooner if problems. 2. We did discuss alternative options for contraception, but again, she has no interest in any othermethod for contraception other than Depo-Provera. She did have a bone density screening 3 years ago,but I would recommend considering repeating that in the next year or 2 given her prolonged Depo-Provera use. She will be due for next Depo-Provera shot between 12/14/2015 and 12/28/2015, and she may receive that at [facility]. She has filled out a release of information so we may obtain her previous records from [facility]. 3. TSH today is pending. CBC is also pending. She will be notified of results when those are available. 4. She is up to date on Pap smear, had a normal Pap smear on 08/24/2015. Recommend next Pap smear 2017. She states that she did have chlamydia screening done as well at her recent physical and that was negative. She declined flu shot. Last Tdap was given in 2012. She has completed the HPV series. She is currently fasting, but does not believe that she has had a fasting lipid panel or glucose ever performed, so those are pending and she will be notified of results when available. Jose Hinojosa Electronically Signed By: NANCY BERNARD PA-C On: 12/11/2015 06:05 PM Source: [facility] MHSDOLBEYNONRADSYS Document Id: [id number] documented in this encounter Miscellaneous Notes Telephone Encounter - Conversion, Historical Provider Ser - 12/18/2015 11:44 AM CDT *Phone Message/ Marco Antonio Document Contains Addenda Addendum by NANCY BERNARD PA-C on December 19, 2015 18:05:51 CDT From: NANCY BERNARD PA-C To: Family [facility] 1 Nurse; Sent: 12/19/2015 18:05:51 CDT Subject: RE: *Phone Message/ Marco Antonio Script printed. Addendum by EDWARDO ROBLES LPN on December 19, 2015 17:25:26 CDT From: EDWARDO ROBLES LPN ([facility] Med 1 Nurse) To: NANCY BERNARD PA-C; Sent: 12/19/2015 17:25:26 CDT Subject: FW: *Phone Message/ Marco Antonio Patient lost all three copies, but only needs the December copy. Please advise. Addendum by NANCY BERNARD PA-C on December 18, 2015 23:20:30 CDT From: NANCY BERNARD PA-C To: [facility] 1 Nurse; Sent: 12/18/2015 23:20:30 CDT Subject: RE: *Phone Message/ Marco Antonio Which months's prescriptions is she needing replaced? I had given her scripts for November, December and January. Did she lose all three paper prescriptions? Addendum by YESSICA LONG LPN on December 18, 2015 13:30:23 CDT From: YESSICA LONG LPN ([facility] 1 Nurse) To: NANCY BERNARD PA-C; Sent: 12/18/2015 13:30:23 CDT Subject: FW: *Phone Message/ Marco Antonio Addendum by YESSICA LONG LPN on December 18, 2015 13:30:14 CDT phone call returned to patient who reports that she [facility] however she they dont have them and she is unable to find them / please advise From: PAULIE GIBBS ([address] Workers Compensation Administrator) To: [facility] Med 1 Nurse; Sent: 12/18/2015 11:44:57 CDT Subject: *Phone Message/ Marco Antonio Caller is: ( x ) Patient ( ) Mother ( ) Father ( ) Spouse ( ) Daughter ( ) Son ( ) Pharmacy ( ) Other: Physician: Patient MRN #: Reason for Call: Message: Yolanda would like a call. She lost her prescriptions. Wondering what to do next. Please call [phone] Advice/Action: Source used: ( ) Verbalizes understanding of instructions ( ) Instructed to call back if symptoms worsen or do not resolve ( ) Refused to see provider ( ) Appointment Scheduled ( ) OK to leave message on voice mail ( ) Patient told to expect return call: ( ) today ( ) tomorrow ( ) next work day ( ) Patient's email ( ) Patient told physician out of office, will call upon return call on ( ) ( ) Patient told physician out of office, routed to other physician ( ) Other ( ) Call back telephone number ( ) Call back cell phone number ( ) Source: [facility] [employer]Race Document Id: [id number] Miscellaneous - Nancy Bernard - 11/29/2015 2:21 PM CST Normal Results Letter 29 November 2015 YOLANDA READ [address] [facility] [address] Dear YOLANDA READ, I am pleased to report that your results from the following diagnostic tests are normal. Your TSH (thyroid lab) is normal. Your HDL good cholesterol is a bit below goal, and regular exercise and weight loss can help. Please follow up with us as we discussed during your visit or sooner if you have any concerns. If you have questions or concerns, please do not hesitate to call our office. Result Name Current Result Normal Range Glucose Fasting (mg/dL) 90 11/29/2015 70 - 99 Cholesterol (mg/dL) 148 11/29/2015 - <=199 Trig (mg/dL) 45 11/29/2015 - <=149 HDL (mg/dL) (L) 35 11/29/2015 >=50 - LDL Calculated (mg/dL) 104 11/29/2015 - <=129 Chol/HDL Ratio 4.23 11/29/2015 LDL/HDL 3 11/29/2015 TSH (mIU/L) 3.09 11/29/2015 0.27 - 4.20 Hgb (g/dL) 14.4 11/29/2015 12.0 - 15.5 Hct (%) 44.2 11/29/2015 34.9 - 44.5 WBC (x10(9)/L) 8.1 11/29/2015 3.4 - 10.5 RBC (x10(12)/L) 4.97 11/29/2015 3.90 - 5.03 MCV (fL) 88.9 11/29/2015 82.0 - 98.0 RDW (%) 12.8 11/29/2015 11.9 - 15.5 Platelet (x10(9)/L) 268 11/29/2015 150 - 450 Sincerely, NANCY BERNARD [address] [place] [id number] Electronic Signature Electronically Signed By: NANCY BERNARD PA-C On: 29 November 2015 This document has images extracted. Source: [facility] POWERCHART Document Id: [id number] Electronically signed by [facility] Air Bag Buffer [id number] at 02/21/2017 4:47 PM CDT Miscellaneous - Nancy Bernard - 11/29/2015 12:37 PM CST Ambulatory Patient Summary [facility] [address] [place] [id number] Visit Information Name: YOLANDA LEONE JEAN PIERRE [facility] Number: [id number] Current Date: 11/29/2015 12:37:23 Physicians Attending Provider: NANCY BERNARD PA-C Primary Care Provider: NANCY BERNARD PA-C SULEMAYOLANDA has been given the following list of [...] cap, Oral, once aday (in the morning) ADHD- [employer] CONTROLLED SUBSTANCE AGREEMENT ON FILE 11/29/2015 This is a CHANGE Routed to Printer medroxyPROGESTERone (Depo-Provera Contraceptive 150 mg/mL intramuscular suspension) 1 Milliliter, Intramuscular, once Recurring order to on 11/28/2016. Last shot: 09/27/2016 Window: 12/14/2015 - 12/28/2015 Routed to [employer] [facility] [employer] [employer] [place] [id number] Stop Taking the Following Medications: Medication list as of 11-29-15 12:37 Attention: If you have any medications at home that are not on this list, DO NOT take them until youcontact your provider for clarification. Give a copy of your medication list to your primary care provider. Update your medication list any time medications or doses are changed and carry your medication list at all times in case of emergency. Electronically Signed By: Signed On: Your Allergies & Intolerances Substance Reaction Symptoms [...] local Clinic if further appointment detail needed. Consider Using Patient Online Services Patient Online Services is a secure online and Mobile application that lets you: ?? View lab and test results ?? View portions of your medical record including clinical notes, immunizations and discharge summaries ?? Request an appointment or medication refill ?? Review your appointment schedule ?? Send secure messages to your care team Its easy to create an account if you dont have one. Go to [email or web address] and click on Create Your Account. Then, follow the directions to complete the online form. Youll be asked for your [facility] number which you can find at the top of this document. Your Goals/Additional instructions: Source: [facility] POWERCHART Document Id: [id number] TRON GUN INSPECTOR Miscellaneous - Nancy Bernard - 11/29/2015 12:37 PM CST Ambulatory Discharge Medication List [facility] [address] [place] [phone] Visit Information Name: YOLANDA LEONE [facility] Number: [id number] Visit Date: 11/29/2015 12:37:22 Attending Provider: NANCY BERNARD PA-C Primary Care Provider: NANCY BERNARD PA-C YOLANDA LEOEN has been given the following list of [...] cap, Oral, once aday (in the morning) ADHD- [employer] CONTROLLED SUBSTANCE AGREEMENT ON FILE 11/29/2015 This is a CHANGE Routed to [employer] medroxyPROGESTERone (Depo-Provera Contraceptive 150 mg/mL intramuscular suspension) 1 Milliliter, Intramuscular, once Recurring order to on 11/28/2016. Last shot: 09/27/2016 Window: 12/14/2015 - 12/28/2015 [facility] [place] [address] Stop Taking the Following Medications: Medication list as of 11-29-15 12:37 Attention: If you have any medications at home that are not on this list, DO NOT take them until youcontact your provider for clarification. Give a copy of your medication list to your primary care provider. Update your medication list any time medications or doses are changed and carry your medication list at all times in case of emergency. Electronically Signed By: Signed On: Additional Information: Source: [facility] POWERCHART Document Id: [id number] TRON GUN INSPECTOR Patricia - Lelo Peralta L.P.N. - 11/29/2015 11:32 AM CST PHQ-9 PHQ-9 Entered On: 11/29/2015 11:34 ELECTRON GUN INSPECTOR Performed On: 11/29/2015 11:32 ELECTRON GUN INSPECTOR by LELO PERALTA LPN PHQ-9 Little interest or pleasure in doing things : Not at all Feeling down, depressed, or hopeless : Not at all Trouble falling or staying asleep, or sleeping too much : Nearly every day Feeling tired or having little energy : Nearly every day Poor appetite or overeating : Several days Feeling bad about yourself or that you are a failure : Not at all Trouble concentrating on things : Not at all Moving or speaking slowly; restless or fidgety : Not at all Thoughts that you would be better off /hurting self : Not at all PHQ-9 Calculated Score : 7 Problems make work, home, or dealing with others : Very difficult LELO PERALTA LPN - 11/29/2015 11:32 ELECTRON GUN INSPECTOR Source: [employer] Document Id: [id number] ELECTRON GUN INSPECTOR!13 TRON GUN INSPECTOR Patricia - Lelo Peralta L.P.N. - 11/29/2015 11:30 AM CST Adult Historiography Teacher Intake/History Adult Historiography Teacher Intake/History Entered On: 11/29/2015 11:32 ELECTRON GUN INSPECTOR Performed On: 11/29/2015 11:30 ELECTRON GUN INSPECTOR by LELO PERALTA LPN Intake Chief Complaint : Medication check; depo due at end of month LMP Date : Depo Peripheral Pulse Rate : 76 /min Respiratory Rate : 17 /min Systolic Blood Pressure : 112 mmHg Diastolic Blood Pressure : 70 mmHg NIBP Mean : 84 mmHg BP Location : Right upper extremity Blood Pressure Cuff Size : Large Height : 164 cm(Converted to: 5 ft 5 inch(es), 65 inch(es)) Actual Weight : 96.5 kg(Converted to: 212 lb 12 oz) Weight Source : Standing scale Dosing Weight Clinic : 96.5 kg Clinic BSA : 2.1 Body Mass Index : 35.88 kg/m2 LELO PERALTA LPN - 11/29/2015 11:30 ELECTRON GUN INSPECTOR General Info Information Given By : Patient Preferred Communication Mode : Verbal Languages : Indonesian Is Patient Female and 13-50 no hysterectomy : Yes Status : Patient denies Are you ? : No LELO PERALTA LPN - 11/29/2015 11:30 ELECTRON GUN INSPECTOR Subjective Pain Symptoms : Yes LELO PERALTA LPN - 11/29/2015 11:30 ELECTRON GUN INSPECTOR Pain Scale Pain Scale Verbal 0-10 : Open LELO PERALTA LPN - 11/29/2015 11:30 ELECTRON GUN INSPECTOR Pain Pain Assessment Grid Pain 1 Pain 2 Location : Upper back Lower back Intensity : 6 6 LELO PERALTA LPN - 11/29/2015 11:30 ELECTRON GUN INSPECTOR LELO PERALTA LPN - 11/29/2015 11:30 ELECTRON GUN INSPECTOR Dependent Habits Smoking Status : Former smoker Tobacco 2A : No Tobacco Use/Currently Using : No Tobacco Use/Last 30 Days : No Tobacco Use/Last 12 months : No LELO PERALTA LPN - 11/29/2015 11:30 ELECTRON GUN INSPECTOR Caffeine Use Grid Caffeine Use : Current Type : Soft drinks Frequency : Occasionally LELO PERALTA LPN - 11/29/2015 11:30 ELECTRON GUN INSPECTOR Recreational Drug Use Grid Frequency : Occasionally LELO PERALTA LPN - 11/29/2015 11:30 ELECTRON GUN INSPECTOR Source: [facility] POWERCHART Document Id: [id number] ELECTRON GUN INSPECTOR!50 TRON GUN INSPECTOR Miscellaneous - Lelo Peralta, L.P.N. - 11/29/2015 11:29 AM CST Health Assessment Health Assessment Entered On: 11/29/2015 11:30 ELECTRON GUN INSPECTOR Performed On: 11/29/2015 11:29 ELECTRON GUN INSPECTOR by LELO PERALTA LPN Health Assessment Complete Health Assessment Complete or Modified : Annual Health Assessment Annual Health Assessment Completed : Yes LELO PERALTA LPN - 11/29/2015 11:29 ELECTRON GUN INSPECTOR Nutrition Nutrition Risk Factors by History Adult : None LELO PERALTA LPN - 11/29/2015 11:29 ELECTRON GUN INSPECTOR Functional Current Daily Living Assistance : None LELO PERALTA LPN - 11/29/2015 11:29 ELECTRON GUN INSPECTOR Dependent Habits Smoking Status : Former smoker Tobacco 2A : No Tobacco Use/Currently Using : No Tobacco Use/Last 30 Days : No Tobacco Use/Last 12 months : No LELO PERALTA LPN - 11/29/2015 11:29 ELECTRON GUN INSPECTOR Caffeine Use Grid Caffeine Use : Current Type : Soft drinks Frequency : Occasionally LELO PERALTA MAINTENANCE DEPARTMENT TECHNICIAN - 11/29/2015 11:29 ELECTRON GUN INSPECTOR Alcohol Use : Yes LELO PERALTA MAINTENANCE DEPARTMENT TECHNICIAN - 11/29/2015 11:29 ELECTRON GUN INSPECTOR Recreational Drug Use Grid Frequency : Occasionally LELO PERALTA LPN - 11/29/2015 11:29 ELECTRON GUN INSPECTOR AUDIT Tool How Often Do You Have A Drink : Monthly or less How Many Drinks in a Day When Drinking : 3 or 4 Six or More Drinks On One Occassion : Never Audit Phase 1 Score : 2 LELO PERALTA MAINTENANCE DEPARTMENT TECHNICIAN - 11/29/2015 11:29 ELECTRON GUN INSPECTOR Psychosocial Domestic Abuse Concerns : None Behavioral Health Screen/Safety Assmt : No Tenriism Preference : LELO Wilder MAINTENANCE DEPARTMENT TECHNICIAN - 11/29/2015 11:29 ELECTRON GUN INSPECTOR Advance Directive Advanced Directives : No Advance Directive Additional Information : No LELO PERALTA MAINTENANCE DEPARTMENT TECHNICIAN - 11/29/2015 11:29 ELECTRON GUN INSPECTOR Educ Needs Learning Style Preference Adult Grid Patient : None Family : None LELO PERALTA LPN - 11/29/2015 11:29 ELECTRON GUN INSPECTOR Source: [facility] POWERCHART Document Id: [id number] ELECTRON GUN INSPECTOR!39 TRON GUN INSPECTOR documented in this encounter Plan of Treatment Not on filedocumented as of this encounter Procedures Procedure Name Priority Date/Time Associated Diagnosis Comme nts LIPID PANEL, S Routine 11/29/2015 12:50 PM Result s for this ELECTRON GUN INSPECTOR procedure are i n the results section. CBC WITHOUT Routine 11/29/2015 12:50 PM Results for this DIFFERENTIAL, B ELECTRON GUN INSPECTOR procedure ar e in the results section. THYROID-STIMULATING Routine 11/29/2015 12:50 PM R esults for this HORMONE-SENSITIVE ELECTRON GUN INSPECTOR procedure are in (S-TSH) the results section. GLUCOSE, FASTING, Routine 11/29/2015 12:50 PM Res ults for this S/P ELECTRON GUN INSPECTOR procedure are i n the results section. documented in this encounter Results CBC without Differential (11/29/2015 12:50 PM ELECTRON GUN INSPECTOR) athologist Signature Leukocytes 8.1 3.4 - 10.5 POWERCHART X109L Erythrocytes 4.97 3.90 - 5.03 POWERCHART [id number] Hemoglobin 14.4 12.0 - 15.5 POWERCHART GDL Hematocrit 44.2 34.9 - 44.5 POWERCHART MCV 88.9 82.0 - 98.0 POWERCHART FL HX RDW 12.8 11.9 - 15.5 POWERCHART Platelet Count 268 150 - 450 POWERCHART X109L Specimen (Source) Anatomical Collection Method Collection Time Re ceived Time Location / / Volume Laterality Blood 11/29/2015 12:50 PM ELECTRON GUN INSPECTOR Nancy Mcconnell P.A. LAB BLOOD ADD-ON Performing Organization Address City/State/ZIP Code Phon e Number POWERCHART Glucose, Fasting (11/29/2015 12:50 PM ELECTRON GUN INSPECTOR) athologist Signature Glucose, 90 70 - 99 POWERCHART Fasting, S MGDL Specimen (Source) Anatomical Collection Method Collection Time Re ceived Time Location / / Volume Laterality Blood 11/29/2015 12:50 PM ELECTRON GUN INSPECTOR Nancy Mcconnell P.A. LAB BLOOD NON ADD-ON Performing Organization Address City/State/ZIP Code Phon e Number POWERCHART (ABNORMAL) Lipid Panel (11/29/2015 12:50 PM ELECTRON GUN INSPECTOR) athologist Signature Calculated LDL 104 <=129 MGDL POWERCHART Comment: 2014 National Lipid Association recommen dations for LDL-C in adults ages 18 and up: Desirable <100 mg/dL Above desirable 100-129 mg/dL Borderline high 130-159 mg/dL High 160-189 mg/dL Very High 190 mg/dL 2014 National Lipid Association recommen dations for LDL-C in children ages 2 to 17. Acceptable <110 mg/dL Borderline High 110-129mg/dL High 130 mg/dL LDL-C >190mg/dL: The markedly elevated LDL level is suggestive of a genetic condition such as familial hypercholesterolemia(FH) or familial defective apolipoprotein B-100 (FDB). Molecular genetic t esting for FH and FDB is available chiquis martínez [facility]: FH/ADH Genetic Reflex Garcia el (test ADHP). Acquired (non-genetic) causes of markedly increased LDL cholesterol include cholestatic liver disease due to the presence of LpX. If a genetic form of hypercholesterolemia is suspected, family studies including biochemical testing fo r lipids (total cholesterol,triglycerides, LDL cholesterol and HDL cholesterol) are recommended. ??Please contact the laboratory at or the on-line test catalog at [address] for information about how to order these ines ts or to speak with a genetic counselor. Further interpretation would require clinical information. Total Cholesterol/HDL Ratio 4.23 PO WERCHART Cholesterol, Total 148 <=199 MGDL POWERCHART Comment: 2014 National Lipid Association recommen dations for Total Cholesterol in adults ages 18 and up: Desirable <200 mg/dL Borderline high 200-239 mg/dL High 240 mg/dL 2014 National Lipid Association recommen dations for Total Cholesterol in children ages 2 to 17. Acceptable <170 mg/dL Borderline High 170-199 mg/dL High 200 mg/dL HX HDL 35 (L) >=50 MGDL POWERCHART Comment: 2014 National Lipid Association recommen dations for HDL-C in adults ages 18 and up: Low <40 mg/dL (Men) Low <50 mg/dL (Women) 2014 National Lipid Association recommen dations for HDL-C in children ages 2 to 17. Low <40 mg/dL Borderline Low 40-45 mg/dL Acceptable >45 mg/dL Triglycerides 45 <=149 MGDL POWERCHART Comment: 2014 National Lipid Association recommen dations for Triglycerides in adults ages 18 and up: Normal <150 mg/dL Borderline High 150-199 mg/dL High 200-499 mg/dL Very High 500 mg/dL 2014 National Lipid Association recommen dations for Triglycerides in children ages 2 to 9. Acceptable <75 mg/dL Borderline High 75-99 mg/dL High 100 mg/dL 2014 National Lipid Association recommen dations for Triglycerides in children ages 10 to 17. Acceptable <90 mg/dL Borderline High 90-129 mg/dL High 130 mg/dL Trigs >400mg/dL: Triglycerides >400 mg/ dL. Calculated LDL cholesterol is not valid. Non-HDL cholesterol may be used for risk assessment when triglycerides are >400mg/dL. HXLDL/HDL 3 POWERCHART Specimen (Source) Anatomical Collection Method Collection Time Re ceived Time Location / / Volume Laterality Blood 11/29/2015 12:50 PM [employer]LECT[employer] INSPECTOR Nancy Hodges LAB BLOOD ADD-ON Performing Organization Address City/State/ZIP Code Phon e Number POWERCHART Thyroid-Stimulating Hormone-Sensitive (s-TSH) (11/29/2015 12:50 PM ELECTRON GUN INSPECTOR) P athologist Signature TSH 3.09 0.27 - 4.20 POWERCHART (Thyrotropin) MIUL Specimen (Source) Anatomical Collection Method Collection Time Re ceived Time Location / / Volume Laterality Blood 11/29/2015 12:50 PM [employer]LECT[employer] GUN INSPECTOR Nancy CostelloAMayur LAB BLOOD ADD-ON Performing Organization Address City/State/ZIP Code Phon e Number POWERCHART documented in this encounter Visit Diagnoses Not on filedocumented in this encounter Additional Health Concerns Assessment Noted Time PHQ-9 Depression Total Score: 7 11/29/2015 11:32 AM CS T documented as of this encounter
--- OUTSIDE RECORDS SUMMARY | 2022-07-11 09:21 | XMS_ITS | Encounter Summary ---
:1990 Author Organization [facility] Address [address] [place] [address] Care Team Providers Name Role Phone Unavailable Primary Care Provider Unavailable Encounter Details Date Type Department Care Team Description 01/05/2015 Hospital Encounter HX [facility] Nancy Mcconnell, Tracie [address] [place] [address] BILL Dominguez [phone] (Wo rk) Social History Tobacco Use Types Packs/Day Years Used Date Smoking Tobacco: Never Assessed Sex Assigned at Date Recorded Not on file documented as of this encounter Last Filed Vital Signs Vital Sign Reading Time Taken Comments Blood Pressure 104/64 01/05/2015 4:16 PM CDT Pulse 84 01/05/2015 4:16 PM CDT Temperature - - Respiratory Rate 18 01/05/2015 4:16 PM CDT Oxygen Saturation - - Inhaled Oxygen Concentration - - Weight 95.5 kg (210 lb 8.6 oz) 01/05/2015 4:16 PM CDT Height 164 cm (5' 4.57) 01/05/2015 4:16 PM CDT Body Mass Index 35.51 01/05/2015 4:16 PM CDT documented in this encounter Progress Notes Nancy Chambers L - 01/05/2015 4:09 PM CDT FM-LE CHIEF COMPLAINT/REASON FOR VISIT Pruritic rash on right arm. HISTORY OF PRESENT ILLNESS Yolanda is a 24-year-old female who presents to the clinic today to discuss for evaluation and treatment of a pruritic rash on her right arm. This presented first about 2 months ago as a couple of small spots, but the spots seem to be getting larger, and it seems to be spreading along the right arm. These are red, raised, flaky, pruritic patches. She has never had anything like this in the past. It is not painful, but it is quite pruritic. There is no swelling, discharge, or oozing. She states that she does have a known history of eczema, but none of her usual eczema creams, including Eucerin, Lubriderm, or dnvy-ran-fjwlhoz eczema cream seem to be helping. She has also tried using an antifungal, thinking that this may be fungal in nature, and that seems to help with dryness, but the rash does notgo away. She has not tried any topical steroids. No one else with similar rash. No changes in soaps,lotions, personal products or medications. She states that there has been no recent travel. She tends to have very sensitive skin, and states that really she is only able to use Eucerin or Lubriderm for a moisturizer. She states that heat makes the pruritus worse. She states that she is missing work for her appointment today, and does need a work note. MEDICATIONS Reviewed per EMR on 01/05/2015. ALLERGIES Naproxen. VITAL SIGNS Weight 95.5 kg. Body mass index 35.51 kg/m2. Temp 36.89 C. Pulse 84. Respiratory rate 18 per minute. Blood pressure 104/64. PHYSICAL EXAMINATION GENERAL: Alert and oriented female. Well developed and well nourished, and in no acute distress. SKIN: Intact. Over the right lateral upper and lower arm, surrounding the elbow, there is an erythematous, raised, flaky, plaque-like rash present. DIAGNOSTICS ALONSO skin scraping - negative for fungal elements. IMPRESSION/REPORT/PLAN Pruritic erythematous rash of the right arm, suspect atopic dermatitis. PLAN: Yolanda is notified of the negative ALONSO screening today. Plan to treat with topical antifungal. The rash is raised, thickened with some evidence of lichenification from chronic scratching. We will treat with triamcinolone 0.5% topical cream 2 times daily for no more than 14 days per lesion. If symptoms do not improve over the next 10 to 14 days, she will contact me, and may need to consider referral to dermatology for possible biopsy. However, if rash does seem to be improving with said treatment, no need to follow up. Nancy Chambers P.A.-C/aracely Electronically Signed By: NANCY CHAMBERS PA-C On: 01/29/2015 06:36 PM Source: [facility] [id number] Document Id: [id number] documented in this encounter Miscellaneous Notes Miscellaneous - Nancy Chambers - 01/05/2015 5:39 PM CDT Ambulatory Patient Summary [facility] [address] [place], [place] [id number] Visit Information Name: YOLANDA LEONE [facility] Number: [id number] Current Date: 01/05/2015 17:39:40 Physicians Attending Provider: NANCY CHAMBERS PA-C Primary Care Provider: NANCY CHAMBERS PA-C SULEMAYOLANDA has been given the following [...] Take Indications/Special Instructions/Comments/Notes for Patient Medication Changes/Routing *acetaminophen/dextromethorphan/PSE (DayQuil) as needed dextroamphetamine-amphetamine (Adderall XR 30 mg oral capsule, extended release) 1 cap, Oral, once aday (in the morning) ADHD- [facility] Schedule medication review for further refills. medroxyPROGESTERone (Depo-Provera Contraceptive 150 mg/mL intramuscular suspension) 1 Milliliter, Intramuscular, every 90 days RECURRING ORDER, GIVE EVERY 12 WEEKS *ondansetron (Zofran ODT 4 mg oral tablet, disintegrating) 1 Tablet(s), Oral, every 8 hours as needed for Nausea triamcinolone topical (triamcinolone 0.5% topical cream) 1 porsche, Topical, two times a day as needed for Rash x 14 day(s) New Routed to [place] [address] [place] [address] * You have let us know that you are not taking this medication as listed. Please talk with your primary care provider or the health care provider who prescribed the medication as soon as possible. Stop Taking the Following Medications: Medication list as of 01-05-15 17:39 Attention: If you have any medications at home that are not on this list, DO NOT take them until youcontact your provider for clarification. Give a copy of your medication list to your primary care provider. Update your medication list any time medications or doses are changed and carry your medication list at all times in case of emergency. Electronically Signed By: NANCY CHAMBERS PA-C Signed On:05-JAN-2015 17:39:33 Your Allergies & Intolerances Substance Reaction Symptoms Category Comments naproxen ITCHING Drug Your Problem List Problem Status Onset Comments Pain Neck Active 08/14/2009 Tobacco Abuse Active 08/14/2009 ADHD - Attention deficit disorder with hyperactivity Active Depressive disorder, major, recurrent episode Active Routine general medical exam Active 11/04/2013 Acne NOS Active 11/04/2013 Your Upcoming Appointments Date Time Location Provider 04/05/2015 08:30 [facility] Mammo [facility] Room 2 04/05/2015 09:00 [facility] Ultrasound [facility] Room 1 Attention: Contact your local Clinic if further appointment detail needed. Your Goals/Additional instructions: Source: [facility] POWERCHART Document Id: [id number] Miscellaneous - Nancy Chambers - 01/05/2015 5:39 PM CDT Ambulatory Discharge [facility] [address] [place] [id number] Visit Information Name: YOLANDA LEONE [facility] Number: [id number] Visit Date: 01/05/2015 17:39:39 Attending Provider: NANCY CHAMBERS PA-C Primary Care Provider: NANCY CHAMBERS PA-C READ YOLANDA GREENFIELD has been given the following list of medications: Your Medications It is important to take your medications as directed. Use a pill box or chart to help remind you to take your medications. Please let your doctor or nurse know if you have problems taking your medications. Medication/Strength How to Take Indications/Special Instructions/Comments/Notes for Patient Medication Changes/Routing *acetaminophen/dextromethorphan/PSE (DayQuil) as needed dextroamphetamine-amphetamine (Adderall XR 30 mg oral capsule, extended release) 1 cap, Oral, once aday (in the morning) ADHD- [facility] Schedule medication review for further refills. medroxyPROGESTERone (Depo-Provera Contraceptive 150 mg/mL intramuscular suspension) 1 Milliliter, Intramuscular, every 90 days RECURRING ORDER, GIVE EVERY 12 WEEKS *ondansetron (Zofran ODT 4 mg oral tablet, disintegrating) 1 Tablet(s), Oral, every 8 hours as needed for Nausea triamcinolone topical (triamcinolone 0.5% topical cream) 1 porsche, Topical, two times a day as needed for Rash x 14 day(s) New Routed to [facility] [address] [place] [address] * You have let us know that you are not taking this medication as listed. Please talk with your primary care provider or the health care provider who prescribed the medication as soon as possible. Stop Taking the Following Medications: Medication list as of 01-05-15 17:39 Attention: If you have any medications at home that are not on this list, DO NOT take them until youcontact your provider for clarification. Give a copy of your medication list to your primary care provider. Update your medication list any time medications or doses are changed and carry your medication list at all times in case of emergency. Electronically Signed By: NANCY CHAMBERS PA-C Signed On:05-JAN-2015 17:39:33 Additional Information: Source: [facility] POWERCHART Document Id: [id number] Miscellaneous - Nancy Chambers - 01/05/2015 5:36 PM CDT Work Excuse 05 January 2015 YOLANDA READ [phone] [facility] [address] Dear YOLANDA READ, You were examined in my office on: 01/05/2015 Reason for work excuse: Medical Illness ( _ ) Yes ( _ ) No Injury ( _ ) Yes ( _ ) No Is excused from all work: ( _ ) Yes ( _ ) No Has work limitations: ( _ ) Yes ( _ ) No As follows: _ Limitations apply until: _ Follow-Up Appointment : ( _ ) Return to Work date: _ Notes: Please excuse Yolanda from work for medical appointment this afternoon. Sincerely, NANCY CHAMBERS [address] [place] [id number] Electronic Signature Electronically Signed By: NANCY CHAMBERS PA-C On: 05 January 2015 This document has images extracted. Source: [facility] POWERCHART Document Id: [id number] Electronically signed by Halle, [facility] Labor Relations Director [id number] at 02/22/2017 2:39 PM CDT Patricia - Yazmin Jovel - 01/05/2015 4:16 PM CDT Adult Evaluation Analyst Intake/History Adult Evaluation Analyst Intake/History Entered On: 01/05/2015 16:19 CDT Performed On: 01/05/2015 16:16 CDT by YAZMIN JOVEL Intake Chief Complaint : Itchy rash on right arm for 2 months- spreading Temperature Oral : 36.9 DegC(Converted to: 98.4 DegF) Peripheral Pulse Rate : 84 /min Respiratory Rate : 18 /min Heart Rhythm : Regular Systolic Blood Pressure : 104 mmHg Diastolic Blood Pressure : 64 mmHg NIBP Mean : 77 mmHg BP Location : Right upper extremity Blood Pressure Cuff Size : Large Height : 164 cm(Converted to: 5 ft 5 inch(es), 65 inch(es)) Actual Weight : 95.5 kg(Converted to: 210 lb 9 oz) Weight Source : Standing scale Dosing Weight Clinic : 95.5 kg Clinic BSA : 2.09 Body Mass Index : 35.51 kg/m2 YAZMIN JOVEL - 01/05/2015 16:16 CDT General Info Languages : Ukrainian Is Patient Female and 13-50 no hysterectomy : Yes Status : Patient denies Are you ? : No YAZMIN JOVEL - 01/05/2015 16:16 CDT Subjective Pain Symptoms : No Skin Symptoms : Itching, Rash AARONRAFAEL YAZMIN - 01/05/2015 16:16 CDT Dependent Habits Tobacco Use/Currently Using : Yes Exposure to Tobacco Smoke : Patient smokes Smoking Status : Current every day smoker YAZMIN JOVEL - 01/05/2015 16:16 CDT Tobacco Use Grid Type : Cigarettes Cigarette Use Packs/Day : 0.4 YAZMIN JOVEL - 01/05/2015 16:16 CDT Caffeine Use Grid Caffeine Use : Current Type : Soft drinks Frequency : Occasionally YAZMIN JOVEL - 01/05/2015 16:16 CDT Recreational Drug Use Grid Frequency : Occasionally YAZMIN JOVEL - 01/05/2015 16:16 CDT ID Screen Drug Resistant Organism : No Travel Within Last 21 Days : No Contact with someone with Ebola : No YAZMIN JOVEL - 01/05/2015 16:16 CDT Source: [facility] POWERCHART Document Id: [id number]!46 documented in this encounter Plan of Treatment Not on filedocumented as of this encounter Procedures Procedure Name Priority Date/Time Associated Diagnosis Comme nts FUNGAL SMEAR Routine 01/05/2015 5:07 PM Results f or this CDT procedure are i n the results section . documented in this encounter Results Fungal Smear (01/05/2015 5:07 PM CDT) [facility] gist Method Time Signature HXKOH S/H/N POWERCHART HXFinal No fungal POWERCHART elements seen. HXFinal Reference: No POWERCHART fungal elements seen. Specimen (Source) Anatomical Collection Method Collection Time Re ceived Time Location / / Volume Laterality Skin 01/05/2015 5:07 PM CDT Nancy Hodges LAB MICROBIOLOGY - GENERAL O RDERABLES Performing Organization Address City/State/ZIP Code Phon e Number POWERCHART documented in this encounter Visit Diagnoses Not on filedocumented in this encounter Additional Health Concerns Assessment Noted Time PHQ-9 Depression Total Score: 3 10/05/2014 11:20 AM CS T documented as of this encounter
--- OUTSIDE RECORDS SUMMARY | 2022-07-11 09:21 | XMS_ITS | Encounter Summary ---
:1990 Author Organization [facility] Address [address] [place] [address] Care Team Providers Name Role Phone Unavailable Primary Care Provider Unavailable Encounter Details Date Type Department Care Team Description 02/05/2015 Hospital Encounter HX [facility] Ada Roberson M.D. [address] [place] [address] (Wo rk) Social History Tobacco Use Types Packs/Day Years Used Date Smoking Tobacco: Never Assessed Sex Assigned at Date Recorded Not on file documented as of this encounter Last Filed Vital Signs Vital Sign Reading Time Taken Comments Blood Pressure - - Pulse 84 02/05/2015 9:40 AM CDT Temperature - - Respiratory Rate 20 02/05/2015 9:40 AM CDT Oxygen Saturation - - Inhaled Oxygen Concentration - - Weight 95.4 kg (210 lb 5.1 oz) 02/05/2015 9:40 AM CDT Height 164 cm (5' 4.57) 02/05/2015 9:40 AM CDT Body Mass Index 35.47 02/05/2015 9:40 AM CDT documented in this encounter Progress Notes Araceli Roberson M.D. - 02/05/2015 9:33 AM CDT [id number] CHIEF COMPLAINT Sunburn. HISTORY OF PRESENT ILLNESS Yolanda is in today for evaluation of complications from a sunburn. She was out on Thursday, now 2 days ago. She has a history of getting sunburned easily. She had her face and upper chest and upper back exposed for several hours. She then developed a very painful burn yesterday, and now this morning,it has started to blister. She has had no fever. She has been putting aloe gel on it. MEDICATIONS Adderall 30 mg daily. Depo-Provera 150 mg IM every 3 months. ALLERGIES Naproxen. VITAL SIGNS Pulse 84, respiratory rate 20, temp 36.5, blood pressure 120/70. PHYSICAL EXAMINATION HEENT: TMs clear. Oral cavity unremarkable. LUNGS: Clear. CARDIOVASCULAR: Regular rate and rhythm. No murmur or gallop noted. SKIN: Inspection of the upper chest area and upper arms as well as upper back reveals a second-degree sunburn with some small blister formation throughout. IMPRESSION/REPORT/PLAN Second-degree sunburn. PLAN: I will treat her with prednisone 40 mg daily for 5 days. She will continue to use aloe on her skin. I will have her off work the next 2 days. I did advise her to watch for signs of cellulitis. Atthis point, her pain is being managed with oral anti-inflammatories, and that seems to be sufficient. Recheck here if further problems. Future prevention issues reviewed. Araceli Roberson M.D./aracely Electronically Signed By: ARACELI ROBERSON MD On: 02/06/2015 08:32 AM Source: [facility] [id number] Document Id: [id number] documented in this encounter Miscellaneous Notes Miscellaneous - Araceli Roberson M.D. - 02/08/2015 11:56 AM CDT Return to Work Status Return to Work Status Entered On: 02/08/2015 11:57 CDT Performed On: 02/08/2015 11:56 CDT by ARACELI ROBERSON MD Return to Work Status Date/Time of Injury : 02/08/2015 11:56 CDT Work Status : No work Work Status Comment : Please excuse from work 02/04/2015 through 02/08/2015 due to illness. ARACELI ROBERSON MD - 02/08/2015 11:56 CDT Source: [facility] POWERCHART Document Id: [id number] CDT!5 Telephone Encounter - Conversion, Historical Provider Ser - 02/08/2015 9:08 AM CDT *Phone Message Document Contains Addenda Addendum by JOYA OCHOA on 08 Feb 2015 12:08:38 CDT pt notifed and note at info desk Addendum by ARACELI ROBERSON MD on 08 Feb 2015 12:07:38 CDT From: ARACELI ROBERSON MD To: ALEXANDR Nazario Nurse; Sent: 02/08/2015 12:07:38 CDT Subject: RE: *Phone Message I have done the work excuse extended for today. If still not able to return to work tomorrow, I can update again. I would tell her to take ibuprofen for the pain Addendum by JOYA OCHOA on 08 Feb 2015 09:41:16 CDT From: JOYA OCHOA (ALEXANDR Nazario Nurse) To: ARACELI ROBERSON MD; Sent: 02/08/2015 09:41:16 CDT Subject: FW: *Phone Message Pt would like today and tomr still having pain. PT would like to know if could get something for pain. Silver joshi. From: JOSE ORSE (OW [facility] Hotbed Lever Operator) To: ALEXANDR Nazario Nurse; Sent: 02/08/2015 09:08:06 CDT Subject: *Phone Message Caller is: ( x ) Patient ( ) Mother ( ) Father ( ) Spouse ( ) Daughter ( ) Son ( ) Pharmacy ( ) Other: Physician: Patient MRN #: Reason for Call: Message: s patient calling to speak to nurse b patient calling was seen on thursday wondering if you would extend her work slip a r call her back at [phone] Advice/Action: Source used: ( ) Verbalizes understanding [...] back cell phone number ( ) Source: [facility] POWERCHART Document Id: [id number] Miscellaneous - Araceli Roberson M.D. - 02/05/2015 10:03 AM CDT Ambulatory Patient Summary [address] [id number] Visit Information Name: YOLANDA LEONE [facility] Number: [id number] Current Date: 02/05/2015 10:03:47 Physicians Attending Provider: ARACELI ROBERSON MD Primary Care Provider: JOAN CHAMBERS PA-C YOLANDA LEONE has been given the following [...] mg/mL intramuscular suspension) 1 Milliliter, Intramuscular, once predniSONE (predniSONE 20 mg oral tablet) 2 Tablet(s), Oral, once a day x 5 day(s) New Routed to [place] [address] [place] [place] [id number] Stop Taking the Following Medications: acetaminophen/dextromethorphan/PSE (DayQuil) ondansetron (Zofran ODT 4 mg oral tablet, disintegrating) Medication list as of 02-05-15 10:03 Attention: If you have any medications at home that are not on this list, DO NOT take them until youcontact your provider for clarification. Give a copy of your medication list to your primary care provider. Update your medication list any time medications or doses are changed and carry your medication list at all times in case of emergency. Electronically Signed By: ARACELI ROBERSON MD Signed On:05-FEB-2015 10:03:43 Your Allergies & Intolerances Substance Reaction Symptoms Category Comments naproxen ITCHING Drug Your Problem List Problem Status Onset Comments Pain Neck Active 08/14/2009 Tobacco Abuse Active 08/14/2009 ADHD - Attention deficit disorder with hyperactivity Active Depressive disorder, major, recurrent episode Active Routine general medical exam Active 11/04/2013 Acne NOS Active 11/04/2013 Your Upcoming Appointments Date Time Location Provider 04/05/2015 08:30 [facility] Mammo [facility] Room 2 04/05/2015 09:00 [facility] Room 1 Attention: Contact your local Clinic if further appointment detail needed. Your Goals/Additional instructions: Source: [facility] POWERCHART Document Id: [id number] Miscellaneous - Araceli Roberson M.D. - 02/05/2015 10:03 AM CDT Ambulatory Discharge Medication List [facility] [address] [place] [id number] Visit Information Name: YOLANDA LEONE [facility] Number: [id number] Visit Date: 02/05/2015 10:03:46 Attending Provider: ARACELI ROBERSON MD Primary Care Provider: JOAN CHAMBERS PA-C YOLANDA LEONE has been given the following [...] mg/mL intramuscular suspension) 1 Milliliter, Intramuscular, once predniSONE (predniSONE 20 mg oral tablet) 2 Tablet(s), Oral, once a day x 5 day(s) New Routed to [facility] [address] [place] [place] [id number] Stop Taking the Following Medications: acetaminophen/dextromethorphan/PSE (DayQuil) ondansetron (Zofran ODT 4 mg oral tablet, disintegrating) Medication list as of 02-05-15 10:03 Attention: If you have any medications at home that are not on this list, DO NOT take them until youcontact your provider for clarification. Give a copy of your medication list to your primary care provider. Update your medication list any time medications or doses are changed and carry your medication list at all times in case of emergency. Electronically Signed By: ARACELI ROBERSON MD Signed On:05-FEB-2015 10:03:43 Additional Information: Source: [facility] POWERCHART Document Id: [id number] Miscellaneous - Araceli Roberson M.D. - 02/05/2015 10:01 AM CDT Return to Work Status Return to Work Status Entered On: 02/05/2015 10:02 CDT Performed On: 02/05/2015 10:01 CDT by ARACELI ROBERSON MD Return to Work Status Employer : [employer] Date/Time of Injury : 02/05/2015 10:01 CDT Work Injury : No Work Status : No work Return to Work Start Date : 02/08/2015 CDT Work Status Comment : No work through 02/07/2015 due to medical reasons. ARACELI ROBERSON MD - 02/05/2015 10:01 CDT Source: [facility] POWERCHART Document Id: [id number] CDT!8 Miscellaneous - Christopher Saldana L.P.N. 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 Intake/History Adult Machine Repairman Intake/History Entered On: 02/05/2015 9:43 CDT Performed On: 02/05/2015 9:40 CDT by CHRISTOPHER SALDANA APARTMENT MANAGER Intake Chief Complaint : sunburn with blistering Temperature Oral : 36.5 DegC(Converted to: 97.7 DegF) Peripheral Pulse Rate : 84 /min Respiratory Rate : 20 /min Heart Rhythm : Regular Height : 164 cm(Converted to: 5 ft 5 inch(es), 65 inch(es)) Actual Weight : 95.4 kg(Converted to: 210 lb 5 oz) Weight Source : Standing scale Dosing Weight Clinic : 95.4 kg Clinic BSA : 2.08 Body Mass Index : 35.47 kg/m2 CHRISTOPHER SALDANA LPN - 02/05/2015 9:40 CDT General Info Information Given By : Patient Preferred Communication Mode : Verbal Languages : [place] Is Patient Female and 13-50 no hysterectomy : Yes Status : Patient denies Are you ? : No CHRISTOPHER SALDANA LPN - 02/05/2015 9:40 CDT Subjective Pain Symptoms : Yes CHRISTOPHER SALDANA LPN - 02/05/2015 9:40 CDT Pain Scale Pain Scale Verbal 0-10 : Open CHRISTOPHER SALDANA LPN - 02/05/2015 9:40 CDT Pain Pain Assessment Grid Pain 1 Location : Other: Skin (chest, back shoulders) CHRISTOPHER SALDANA LPN - 02/05/2015 9:40 CDT Dependent Habits Tobacco Use/Currently Using : Yes Exposure to Tobacco Smoke : Patient smokes Smoking Status : Current every day smoker CHRISTOPHER SALDANA APARTMENT MANAGER - 02/05/2015 9:40 CDT Tobacco Use Grid Type : Cigarettes Cigarette Use Packs/Day : 0.4 CHRISTOPHER SALDANA [facility] - 02/05/2015 9:40 CDT Caffeine Use Grid Caffeine Use : Current Type : Soft drinks Frequency : Occasionally CHRISTOPHER SALDANA [facility] - 02/05/2015 9:40 CDT Recreational Drug Use Grid Frequency : Occasionally CHRISTOPHER SALDANA [facility] - 02/05/2015 9:40 CDT ID Screen Drug Resistant Organism : No Travel Within Last 21 Days : No Contact with someone with Ebola : No CHRISTOPHER SALDANA LPN - 02/05/2015 9:40 CDT Source: [employer] Document Id: [id number] CDT!48 documented in this encounter Plan of Treatment Not on filedocumented as of this encounter Visit Diagnoses Not on filedocumented in this encounter Additional Health Concerns Assessment Noted Time PHQ-9 Depression Total Score: 3 10/05/2014 11:20 AM CS T documented as of this encounter
--- OUTSIDE RECORDS SUMMARY | 2022-07-11 09:22 | XMS_ITS | Encounter Summary ---
:1990 Author Organization [facility] Address [address] [place] [address] Care Team Providers Name Role Phone Unavailable Primary Care Provider Unavailable Encounter Details Date Type Department Care Team Description 09/20/2013 Hospital Encounter HX [facility] JUVENAL [facility] Provider, [place] Social History Tobacco Use Types Packs/Day Years Used Date Smoking Tobacco: Never Assessed Sex Assigned at Date Recorded Not on file documented as of this encounter Last Filed Vital Signs Vital Sign Reading Time Taken Comments Blood Pressure 120/72 09/20/2013 11:30 AM [employer] Pulse - - Temperature - - Respiratory Rate - - Oxygen Saturation - - Inhaled Oxygen Concentration - - Weight - - Height - - Body Mass Index - - documented in this encounter Procedure Notes Conversion, Historical Provider Ser - 09/20/2013 11:30 AM CST Depo-Provera Administration Depo-Provera Administration Entered On: 09/20/2013 11:30 [employer] Performed On: 09/20/2013 11:30 [employer] by JUDIE EVANS Depo-Provera Administration Annual Exam in the Past 12 Months : Yes Last Depo-Provera Given : 06/27/2013 CDT Needs test : No Depo-Provera Administration Comments : RETURN APPT: 12/06/13-12/20/13 JUDIE EVANS - 09/20/2013 11:30 [facility] Vitals/Ht/Wt Systolic Blood Pressure : 120 mmHg Diastolic Blood Pressure : 72 mmHg NIBP Mean : 88 mmHg BP Location : Right upper extremity Blood Pressure Cuff Size : Regular JUDIE EVANS - 09/20/2013 11:30 [employer] Source: [facility] POWERCHART Document Id: [id number] [employer]!12 documented in this encounter Plan of Treatment Not on filedocumented as of this encounter Visit Diagnoses Not on filedocumented in this encounter Additional Health Concerns Assessment Noted Time PHQ-9 Depression Total Score: 5 10/14/2012 1:41 PM [employer] documented as of this encounter
--- OUTSIDE RECORDS SUMMARY | 2022-07-11 09:22 | XMS_ITS | Encounter Summary ---
:1990 Author Organization [facility] Address [address] [place] [address] Care Team Providers Name Role Phone Unavailable Primary Care Provider Unavailable Encounter Details Date Type Department Care Team Description 11/04/2013 Hospital Encounter HX NO MAPPING Neha Leos M.D . 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
--- OUTSIDE RECORDS SUMMARY | 2022-07-11 09:22 | XMS_ITS | Encounter Summary ---
:1990 Author Organization [facility] Address [address] [place] [address] Care Team Providers Name Role Phone Unavailable Primary Care Provider Unavailable Encounter Details Date Type Department Care Team Description 03/21/2014 Hospital Encounter [facility] [facility] Sophia Leos M.D. Social History Tobacco Use Types Packs/Day Years Used Date Smoking Tobacco: Never Assessed Sex Assigned at Date Recorded Not on file documented as of this encounter Last Filed Vital Signs Vital Sign Reading Time Taken Comments Blood Pressure 121/49 03/21/2014 11:20 AM CDT Pulse 90 03/21/2014 11:20 AM CDT Temperature - - Respiratory Rate - - Oxygen Saturation - - Inhaled Oxygen Concentration - - Weight 89.8 kg (197 lb 15.6 oz) 03/21/2014 11:20 AM CDT Height 164 cm (5' 4.57) 03/21/2014 11:14 AM CDT Body Mass Index 33.39 03/21/2014 11:14 AM CDT documented in this encounter Progress Notes Neha Montalvo M.D. - 03/21/2014 11:13 AM CDT [id number] CHIEF COMPLAINT/REASON FOR VISIT 1. Medication review 2. White bumps under eye HISTORY OF PRESENT ILLNESS Yolanda is a 23-year-old female presenting today primarily for a review of her ADHD medication. She states that she is tolerating this, and that it has been working well for the most part. She states that she does not sleep very well however, but is not sure if the Adderall is impacting her sleeping pattern. Yolanda states it is hard for her to get up in the morning, and that she has problems focusing at work. She takes her Adderall at 1 p.m. in the afternoon, and then heads to work at 2 p.m. She states that she never forgets to take her medication, and was wondering if the dosage could be increased. She also complains of white bumps underneath and around her right eye. She states that her right ear is plugged today, and she claims that she gets them cleaned out every 5 months. She has however been getting over a cold, and states that she feels pressure in her ears. MEDICATIONS Reviewed and updated in the EMR dated 03/21/14 ALLERGIES Reviewed and updated in the EMR dated 03/21/14 VITAL SIGNS HEIGHT: 164 cm WEIGHT: 89.8 kg TEMP: 36.8 Deg C PULSE: 90 /min SYSTOLIC: 121 mmHg DIASTOLIC: 49 mmHg PHYSICAL EXAMINATION GENERAL: Well-developed female in no acute distress. EYES: Conjunctivae were clear. Extraocular movements are full. ENT: Both TMs were clear with some wax, but it was not obstructing her canal. She would like them flushed today. Throat was clear. Teeth are in good repair. NECK: Supple with no adenopathy. IMPRESSION/REPORT/PLAN 1. Ear discomfort Plan: Ordered a tympanogram today, which was found to be normal. 2. ADHD Plan: Refilled her Adderall XR 30mg extended release daily in the morning for her symptoms. Will follow up in 3 months or sooner if needed. This document serves as a record of services personally performed by Dr. Neha Leos. It was created on their behalf by Suha Wilson, a trained medical scientific officer. The creation of this record is based on the scribe's personal observations and the provider's statements to them. This document has been checked and approved by the attending provider. Neha Leos M.D./klaudia Electronically Signed By: NEHA LEOS MD On: 03/21/2014 05:55 PM Source: [facility] [email or web address] Document Id: [id number] documented in this encounter Miscellaneous Notes Miscellaneous - Trent Mortensen R.NMayur - 06/26/2014 11:05 AM CDT Med Management- Adderall XR Document Contains Addenda Addendum by JOYA PHOENIX on 26 June 2014 13:48:06 CDT Routed to info desk and they will contact pt Addendum by TRENT MORTENSEN on 26 June 2014 13:32:52 CDT [facility] TRENT [facility]ORTENSEN [facility] To: ALEXANDR Mace Nurse; Sent: 06/26/2014 13:32:52 CDT Subject: FW: Med Management- Adderall XR Addendum by NEHA LEOS MD on 26 June 2014 12:36:35 CDT From: NEHA LEOS MD [facility]; Sent: 06/26/2014 12:36:35 CDT Subject: RE: Med Management- Adderall XR Addendum by NEHA LEOS MD on 26 June 2014 12:36:28 CDT Approved with modifications: Order:dextroamphetamine-amphetamine (Adderall XR 30 mg oral capsule, extended release) 1 cap(s) PO Daily AM ADHD Is due for follow up visit before further refills. Qty: 30 cap(s) Refills: 0 Substitutions Allowed Print - [id number] Signed by NEHA LEOS MD 06/26/2014 12:35:46 From: TRENT MORTENSEN ( [facility]) To: NEHA LEOS MD; Sent: 06/26/2014 11:05:09 CDT Subject: Med Management- Adderall XR On hold pending signature Order:dextroamphetamine-amphetamine (Adderall XR 30 mg oral capsule, extended release) 1 cap(s) PO Daily AM ADHD Qty: 30 cap(s) Refills: 0 Substitutions Allowed Print - [email or web address] [employer] (from [id number]) in session 24 Caller is: ( [phone] ) Patient ( ) Mother ( ) Father ( ) Spouse ( ) Daughter ( ) Son ( ) Pharmacy( ) Other: Provider: Sabrina Leos Pharmacy: Name of Medications Needing Refill: Adderall XR Last Refill Date: unknown Additional Information: Patient had the pharmacy fax this last but it was never received. Now, patient is out of medication. Please review and give her a call back. Last / Future Appointment: last med check: 03-21-14 future appt: none Disposition: ( ) Send to Pharmacy ( ) Call to Pharmacy ( ) Patient will brass pickler Script ( ) Mail Rx to Patient Source: [facility] POWERCHART Document Id: [id number] Electronically signed by Conversion, [facility] Bark Scaler [id number] at 02/24/2017 1:02 AM CDT Telephone Encounter - Conversion, Historical Provider Ser - 06/26/2014 10:45 AM CDT *Phone Message Document Contains Addenda Addendum by TRENT MORTENSEN on 26 June 2014 11:02:08 CDT See Med Renewal Note 06-26-14 From: JOSE ROSE ([address] Humidifier Operator) To: ALEXANDR CROSSsp[facility]; Sent: 06/26/2014 10:45:32 CDT Subject: *Phone Message Caller is: ( x ) Patient ( ) Mother ( ) Father ( ) Spouse ( ) Daughter ( ) Son ( ) Pharmacy ( ) Other: Physician: Sabrina Leos Patient MRN #: Reason for Call: Message: s patient calling to speak to nurse b patient called pharmacy last for refills hasn't heard and is out now a r call her back at [phone] Advice/Action: Source used: ( ) Verbalizes understanding [...] back cell phone number ( ) Source: [facility] POWERCHART Document Id: [id number] Miscellaneous - Neha Montalvo M.D. - 03/21/2014 2:28 PM CDT Ambulatory Patient Summary [facility] [address] [place] [address] [id number] Visit Information Name: YOLANDA LEONE [facility] Number: [id number] Current Date: 03/21/2014 14:28:41 Physicians Attending Provider: NEHA LEOS MD Primary Care Provider: NEHA LEOS MD YOALNDA LEONE has been given the following list [...] Oral, once aday (in the morning) ADHD Routed to Printer medroxyPROGESTERone (Depo-Provera Contraceptive 150 mg/mL intramuscular suspension) 1 Milliliter, Intramuscular, every 90 days RECURRING ORDER, GIVE EVERY 12 WEEKS Stop Taking the Following Medications: Medication list as of 03-21-14 14:28 Attention: If you have any medications at [...] Electronically Signed By: NEHA LEOS MD Signed On:21-MAR-2014 14:28:37 Your Allergies & Intolerances Substance Reaction Symptoms Category Comments naproxen ITCHING Drug Your Problem List Problem Status Onset Comments Pain Neck Active 08/14/2009 Tobacco Abuse Active 08/14/2009 ADHD - Attention deficit disorder with hyperactivity Active Depressive disorder, major, recurrent episode Active Routine general medical exam Active 11/04/2013 Acne NOS Active 11/04/2013 Your Upcoming Appointments Date Time Location Reason Provider No Appointments found Attention: Contact your local Clinic if further appointment detail needed. Your Goals/Additional instructions: Source: [facility] POWERCHART Document Id: [id number] Miscellaneous - Neha Montalvo M.D. - 03/21/2014 2:28 PM CDT Ambulatory Discharge Medication List [facility] [address] [place] [address] [id number] Visit Information Name: YOLANDA LEONE JEAN PIERRE [facility] Number: [id number] Visit Date: 03/21/2014 14:28:40 Attending Provider: NEHA LEOS MD Primary Care [...] Oral, once aday (in the morning) ADHD Routed to Printer medroxyPROGESTERone (Depo-Provera Contraceptive 150 mg/mL intramuscular suspension) 1 Milliliter, Intramuscular, every 90 days RECURRING ORDER, GIVE EVERY 12 WEEKS Stop Taking the Following Medications: Medication list as of 03-21-14 14:28 Attention: If you have any medications at [...] Electronically Signed By: NEHA LEOS MD Signed On:21-MAR-2014 14:28:37 Additional Information: Source: [facility] [place] [employer] Document Id: [id number] Miscellaneous - Alem Beltran L.P.N. - 03/21/2014 11:20 AM CDT Adult Home Health Administrator Intake/History Adult Home Health Administrator Intake/History Entered On: 03/21/2014 11:24 CDT Performed On: 03/21/2014 11:20 CDT by ALEM BELTRAN Intake Chief Complaint : med review, ears feel plugged, white bumps under right eye Temperature Oral : 36.8 DegC(Converted to: 98.2 DegF) Peripheral Pulse Rate : 90 /min Systolic Blood Pressure : 121 mmHg Diastolic Blood Pressure : 49 mmHg (<LLOW) NIBP Mean : 73 mmHg BP Location : Right upper extremity Blood Pressure Cuff Size : Large Actual Weight : 89.8 kg(Converted to: 198 lb 0 oz) Dosing Weight Clinic : 89.8 kg ALEM BELTRAN - 03/21/2014 11:20 CDT General Info Languages : Lao ALEM BELTRAN - 03/21/2014 11:20 CDT Subjective Pain Symptoms : No ALEM BELTRAN - 03/21/2014 11:20 CDT Dependent Habits Tobacco Use/Currently Using : Yes Exposure to Tobacco Smoke : Patient smokes Smoking Status : Current every day smoker ALEM BELTRAN 03/21/2014 11:20 CDT Tobacco Use Grid Type : Cigarettes Cigarette Use Packs/Day : 0.4 ALEM BELTRAN - 03/21/2014 11:20 CDT Caffeine Use Grid Caffeine Use : Current Type : Soft drinks Frequency : Occasionally ALEM BELTRAN 03/21/2014 11:20 CDT Recreational Drug Use Grid Frequency : Occasionally ALEM BELTRAN 03/21/2014 11:20 CDT Source: [facility] [place] [employer] Document Id: [id number]!32 documented in this encounter Plan of Treatment Not on filedocumented as of this encounter Visit Diagnoses Not on filedocumented in this encounter Additional Health Concerns Assessment Noted Time PHQ-9 Depression Total Score: 7 11/04/2013 1:22 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
--- OUTSIDE RECORDS SUMMARY | 2022-07-11 09:22 | XMS_ITS | Encounter Summary ---
:1990 Author Organization [facility] Address [address] [place] [address] Care Team Providers Name Role Phone Unavailable Primary Care Provider Unavailable Encounter Details Date Type Department Care Team Description 11/04/2013 Hospital Encounter HX [facility] Sophia Leos M.D. Social History Tobacco Use Types Packs/Day Years Used Date Smoking Tobacco: Never Assessed Sex Assigned at Date Recorded Not on file documented as of this encounter Last Filed Vital Signs Vital Sign Reading Time Taken Comments Blood Pressure 98/70 11/04/2013 1:16 PM CRATE OPENER Pulse 88 11/04/2013 1:16 PM CRATE OPENER Temperature - - Respiratory Rate 20 11/04/2013 1:16 PM CRATE OPENER Oxygen Saturation - - Inhaled Oxygen Concentration - - Weight 88.5 kg (195 lb 1.7 oz) 11/04/2013 1:16 PM CRATE OPENER Height 164 cm (5' 4.57) 11/04/2013 1:16 PM CRATE OPENER Body Mass Index 32.9 11/04/2013 1:16 PM CRATE OPENER documented in this encounter H&P Notes Leni Montalvo M.D. - 11/04/2013 1:10 PM CST [id number] Document Contains Addenda CHIEF COMPLAINT/REASON FOR VISIT Annual physical examination HISTORY OF PRESENT ILLNESS Yolanda is a 23-year-old female presenting today for her annual physical examination. She continues to do well on her current dose of Adderall and wishes to continue with that. She has cut back on smoking and continues to work on quitting. She is aware of what is available in terms of helping her quit. Her PHQ9 score came in with a score of 7 today, but she relates it to having a hard time falling asleep and staying asleep, stating sometimes she can't shut her brain off, sometimes she is just awake. She has tired melatonin but doesn't want to try anything else because she is worried she wouldn't wake up on time. She also has hanging skin under her arms, secondary to weight loss, and is wondering if there is anything that can be done for that. I encouraged her to keep active and she can exercise to tone the arms, but other than that, cosmetic surgery would be the other option. She also does have a significant amount of acne on her face and back, and is currently using over the counter acne washes and does not wish to be on anything else at this time. SYSTEMS REVIEW GENERAL: Negative for recent fever, weight loss, extreme fatigue. EYES: Negative for double vision, sudden loss of vision. ENT: Negative for sore throat, runny nose, ear pain, hearing loss. HEART: Negative for chest pain, pain in legs relieved with rest, irregular heartbeats. RESPIRATORY: Negative forcough, wheezing, shortness of breath, excessive snoring. GASTROINTESTINAL: Negative for nausea, vomiting, heartburn, abdominal pain, bloating, constipation, diarrhea, blood in stools. GENITOURINARY: Negative for irregular menses, frequent or painful urination, bloody urine. SKIN: Positive for acne. Negative for rash, sore(s), excessive bruising, change of a mole. NEUROLOGICAL: Negative for headache, persistent weakness or numbness on one side of the body, falling. MUSCULOSKELETAL: Negative for jointpain, muscle weakness. MENTAL HEALTH: History of depression, currently under adequate control. Negative for anxiety, suicidal thoughts. LYMPH: Negative for excessive thirst or urination, cold or heat in tolerance, breast mass, swelling in legs, feet or hands. BLOOD: Negative for unusual bruising or bleeding, enlarged lymph nodes. MEDICATIONS Adderall XR 30mg daily in the AM Depo-Provera 150mg IM q3mo ALLERGIES Naproxen caused itching PAST MEDICAL/SURGICAL HISTORY 1. Previously hospitalized for mild depression 2. Hospitalized after reconstructive surgery after a dog bite to her face 3. Tonsillectomy 4. ADHD IMMUNIZATIONS: Tdap 10/14/12. SOCIAL HISTORY She is single. 0. 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 HABITS: She continues to smoke. FAMILY HISTORY Mother with diabetes and cervical cancer. Father with hypertension. Paternal aunt with breast cancer. She states both of her grandmothers from cancer, but doesn't know what kind. VITAL SIGNS HEIGHT: 164 cm WEIGHT: 88.5 kg BMI: 32.9 kg/m2 TEMP: 37 DegC PULSE: 88 /min RESP RATE: 20 /min SYSTOLIC: 98 mmHg DIASTOLIC: 70 mmHg PHYSICAL EXAMINATION GENERAL: Well-developed female in no acute distress. EYES: Conjunctivae were clear. Extraocular movements are full. ENT: Both TMs were clear. Throat was clear. Teeth are in good repair. NECK: Supple with no adenopathy. THYROID: Not palpable. BREASTS: Normal visualization. Fibrocystic breast, but no masses palpable. Axillae were negative. PERIPHERAL VESSELS: Palpable distal pulses. HEART: Regular rate and rhythm. No murmur or extra heart sounds. LUNGS: Clear with easy respirations. ABDOMEN: Soft and nontender. No organomegaly or masses. EXTERNAL GENITALIA: Clear. Cervix clear. Thin-based Pap was done. SPINE: No tenderness over the vertebral bodies. No CVA tenderness. EXTREMITIES: No edema. No calf tenderness. NEUROLOGIC: Intact. MENTAL STATUS: PHQ9 score of 7 stating things are somewhat difficult. IMPRESSION/REPORT/PLAN 1. Healthcare maintenance Plan: She received Gardasil #2 and her Hep A#1 today. Pap smear was done today. Discussed other age appropriate healthy lifestyle choices. 2. ADHD Plan: Continue Adderall XR 30mg daily in the AM. She will follow up in 3 months, sooner if needed. 3. Continued tobacco abuse Plan: I again encouraged her to quit smoking and she is aware of what is available and will let me know if I can be of any help. 4. Acne Plan: She does not wish for any intervention at this time but will let me know if she changes her mind. ADDENDUM After leaving the room, she acquired some small red pinpoint lesions on the arms that are not raised, very nonspecific. Nothing at this point that appears to be hives. She has no respiratory symptoms, but does feel that her arms are itchy. At this point I recommended just monitor. She needed to get towork and did not want to stay here to monitor. I encouraged her to take an antihistamine to help with the itching. She will follow up if she has any persistent or worsening symptoms. Of note, her rash apparently had already started before the Hep A was given, and it had been over 30minutes since the HPV vaccine was given. This document serves as a record of services personally performed by Dr. Leni Leos. It was created on their behalf by Candis Boone, a trained bilingual medical assistant. The creation of this record is based on the scribe's personal observations and the provider's statements to them. This document has been checked and approved by the attending provider. Leni Leos M.D./aman Electronically Signed By: LENI LEOS MD On: 11/25/2013 09:27 PM Source: [facility] MHSDOLBEYNONRADSYS Document Id: [id number] E OPENER documented in this encounter Miscellaneous Notes Miscellaneous - Leni Montalvo M.D. - 11/08/2013 5:08 PM CRATE OPENER Custom Result Letter 08 November 2013 YOLANDA READ [address] [facility] [id number] Dear YOLANDA READ, I am pleased to report that your results from your pap is normal. You will need your next pap in 3 years. If you have questions or concerns, please do not hesitate to call our office. Result Name Current Result CONSTRUCTION SUPERVISOR/CARPENTER Cytology 11/04/2013 Sincerely, LENI LEOS [address] [place] [address] Electronic Signature Electronically Signed By: LENI LEOS MD On: 08 November 2013 This document has images extracted. Source: [facility] POWERCHART Document Id: [id number] Electronically signed by Conversion, [facility] Resource Recovery Engineer [id number] at 02/24/2017 2:41 PM CDT Miscellaneous - Leni Montalvo M.D. - 11/07/2013 12:34 PM CRATE OPENER Normal Results Letter 07 November 2013 YOLANDA READ [address] [facility] [id number] Dear YOLANDA READ, I am pleased to report that your results from the following diagnostic test(s) are normal. If you have questions or concerns, please do not hesitate to call our office. Result Name Current Result Normal Range C trach Amp Src-[place] CERVIX 11/04/2013 C trach Amp RNA-[place] Negative 11/04/2013 Negative - Sincerely, LENI LEOS [address] [place] [id number] Electronic Signature Electronically Signed By: LENI LEOS MD On: 07 November 2013 This document has images extracted. Source: [facility] Border [employer] Document Id: [id number] Electronically signed by Halle [facility] Resource Recovery Engineer [id number] at 02/24/2017 2:41 PM CDT Miscellaneous - Jaene Beltran, LMayurP.N. - 11/04/2013 3:05 PM CST Meaningful Use Influenza Exclusion Meaningful Use Influenza Exclusion Entered On: 11/04/2013 15:05 CRATE OPENER Performed On: 11/04/2013 15:05 CRATE OPENER by JANEE BELTRAN Influenza Vaccine Exclusion Influenza Vaccine Exclusion : Patient declined JANEE BELTRAN - 11/04/2013 15:05 CRATE OPENER Source: [facility] [employer] Document Id: [id number] CRATE OPENER!3 E OPENER Miscellaneous - Leni Montalvo M.D. - 11/04/2013 2:20 PM CRATE OPENER Ambulatory Patient Summary [facility] [address] [place] [id number] Visit Information Name: YOLANDA LEONE [facility] Number: [id number] Current Date: 11/04/2013 14:20:27 Physicians Attending Provider: LENI LEOS MD Primary Care Provider: LENI LEOS MD SULEMA YOLANDA GREENFIELD has been given the following [...] the Following Medications: Medication list as of 11-04-13 14:20 Attention: If you have any medications at home that are not on this list, DO NOT take them until youcontact your provider for clarification. Give a copy of your medication list to your primary care provider. Update your medication list any time medications or doses are changed and carry your medication list at all times in case of emergency. Your Allergies & Intolerances Substance Reaction Symptoms [...] appointment detail needed. Your Goals/Additional instructions: Source: [facility] POWERCHART Document Id: [id number] E OPENER Miscellaneous - Leni Montalvo M.D. - 11/04/2013 2:20 PM CRATE OPENER Ambulatory Depart Summary [facility] [address] [place] [address] Visit Information Name: YOLANDA LEONE JEAN PIERRE [facility] Number: [id number] Visit Date: 11/04/2013 14:20:26 Attending Provider: LENI LEOS MD Primary Care Provider: LENI LEOS MD YOLANDA LEONE JEAN PIERRE has been given the following list of [...] the Following Medications: Medication list as of 11-04-13 14:20 Attention: If you have any medications at home that are not on this list, DO NOT take them until youcontact your provider for clarification. Give a copy of your medication list to your primary care provider. Update your medication list any time medications or doses are changed and carry your medication list at all times in case of emergency. Additional Information: Source: [facility] Document Id: [id number] E OPENER Miscellaneous - Janee Beltran L.P.N. - 11/04/2013 1:22 PM CST PHQ-9 PHQ-9 Entered On: 11/04/2013 13:26 CRATE OPENER Performed On: 11/04/2013 13:22 CRATE OPENER by JANEE BELTRAN PHQ-9 Little interest or pleasure in doing things : Not at all Feeling down, depressed, or hopeless : Not at all Trouble falling or staying asleep, or sleeping too much : Nearly every day Feeling tired or having little energy : More than half the days Poor appetite or overeating : Several days Feeling bad about yourself or that you are a failure : Not at all Trouble concentrating on things : Several days Moving or speaking slowly; restless or fidgety : Not at all Thoughts that you would be better off /hurting self : Not at all PHQ-9 Calculated Score : 7 Problems make work, home, or dealing with others : Somewhat difficult JANEE BELTRAN - 11/04/2013 13:22 CRATE OPENER Source: [facility] Document Id: [id number] CRATE OPENER!13 E OPENER Miscellaneous - Janee Beltran L.P.N. - 11/04/2013 1:16 PM CST Adult Forensic Nurse Intake/History Adult Forensic Nurse Intake/History Entered On: 11/04/2013 13:20 CRATE OPENER Performed On: 11/04/2013 13:16 CRATE OPENER by JANEE BELTRAN Intake Chief Complaint : physical exam LMP Date : 2006 Temperature Oral : 37 DegC(Converted to: 98.6 DegF) Peripheral Pulse Rate : 88 /min Respiratory Rate : 20 /min Systolic Blood Pressure : 98 mmHg Diastolic Blood Pressure : 70 mmHg NIBP Mean : 79 mmHg BP Location : Right upper extremity Blood Pressure Cuff Size : Large Height : 164 cm(Converted to: 5 ft 5 inch(es), 64.57 inch(es)) Actual Weight : 88.5 kg(Converted to: 195 lb 2 oz) Dosing Weight Clinic : 88.5 kg Clinic BSA : 2.01 Body Mass Index : 32.9 kg/m2 JANEE BELTRAN - 11/04/2013 13:16 CRATE OPENER General Info Information Given By : Patient Languages : Thai JANEE BELTRAN - 11/04/2013 13:16 CRATE OPENER Subjective Pain Symptoms : No JANEE BELTRAN 11/04/2013 13:16 CRATE OPENER Dependent Habits Tobacco Use/Currently Using : Yes Exposure to Tobacco Smoke : Patient smokes Smoking Status : Current every day smoker JANEE BELTRAN - 11/04/2013 13:16 CRATE OPENER Tobacco Use Grid Type : Cigarettes Cigarette Use Packs/Day : 0.4 JANEE BELTRAN - 11/04/2013 13:16 CRATE OPENER Caffeine Use Grid Caffeine Use : Current Type : Soft drinks Frequency : Occasionally JANEE BELTRAN - 11/04/2013 13:16 CRATE OPENER Recreational Drug Use Grid Frequency : Occasionally JANEE BELTRAN 11/04/2013 13:16 CRATE OPENER [facility] Document Id: [id number] CRATE OPENER!38 E OPENER documented in this encounter Plan of Treatment Not on filedocumented as of this encounter Procedures Procedure Name Priority Date/Time Associated Diagnosis Comme nts C TRACH AMP SRC Routine 11/04/2013 2:37 PM Result s for this CRATE OPENER procedure are i n the results section. C TRACH AMP RNA Routine 11/04/2013 2:37 PM Result s for this CRATE OPENER procedure are i n the results section. PATHOLOGY CONSTRUCTION SUPERVISOR/CARPENTER Routine 11/04/2013 12:00 AM Results for this CYTOLOGY CRATE OPENER procedure are i n the results section. documented in this encounter Results HX-C trach Amp RNA (11/04/2013 2:37 PM CRATE OPENER) Patholo gist Method Time Signature Chlamydia Negative POWERCHART trachomatis amplified RNA Specimen (Source) Anatomical Collection Method Collection Time Re ceived Time Location / / Volume Laterality 11/04/2013 2:37 PM CRATE OPENER Narrative POWERCHART - 11/05/2013 8:55 PM CRATE OPENER Test Performed by: [address] [address] Research & Analytics Manager: Fredi rose III, M.D. Leni Leos M.D. LAB HISTORICAL ORDERS Performing Organization Address City/[facility] Code Phon e Number POWERCHART HX-C trach Amp Src (11/04/2013 2:37 PM CRATE OPENER) P athologist Signature HXC trach Amp CERVIX POWERCHART Src-[place] Specimen (Source) Anatomical Collection Method Collection Time Re ceived Time Location / / Volume Laterality 11/04/2013 2:37 PM CRATE OPENER Leni Leos M.D. LAB HISTORICAL ORDERS Performing Organization Address [facility] Phon e Number POWERCHART Pathology CONSTRUCTION SUPERVISOR/CARPENTER Cytology (11/04/2013 12:00 AM CRATE OPENER) Specimen (Source) Anatomical Location Collection Method / Collectio n Time Received Time / Laterality Volume 11/04/2013 Narrative [facility] - 11/08/2013 2:51 PM CRATE OPENER [facility] [address] [place] [id number] [facility] [address] [place], [place] ??[address] Patient Name: YOLANDA LEONE Patient ID #: [id number] Collected: 11/04/2013 Address: City/State/Zip: [address] [place] [address] ??[phone] Received: Reported: 11/07/2013 11/08/2013 Soc. Sec. #: ?/Age/Sex 1990 (Age: 23) ??F Physician(s): HUGO LEOS MD Copy To: ? [facility] ?? [id number] [address] [place], ??[place] ??[address] CYTOPATHOLOGY CONSTRUCTION SUPERVISOR/CARPENTER REPORT FINAL CYTOLOGIC DIAGNOSIS Pap Smear - ThinPrep: NEGATIVE FOR INTRAEPITHELIAL LESION OR MALIGNANCY REACTIVE/REPARATIVE CHANGES. ENDOCERVICAL CELLS/COMPONENT PRESENT. SATISFACTORY SPECIMEN FOR EVALUATION. ??This specimen required a physician interpretation under CLIA 1987 ?? Electronically Signed Out By [facility]/11/08/2013 KEITH BENTLEY M.D. AM [facility] [place](ASCP) The Pap test is a screening procedure an d, as such, is subject to both false positive and false negative results as evidenced by published data. ??It is not a diagnostic test and results should be inter preted in the context of the patient's h istory and other clinical findings. ??Obtaining per iodic Pap tests may help to minimize the consequences of any false negatives that may occur. SPECIMEN(S) RECEIVED: Pap Smear - ThinPrep CLINICAL HISTORY: Date of Last PAP: 2009 Date of Last Menstrual Period: 2006 Hormonal History: Hormone therapy Other Clinical Conditions: HPV TYPING REQUESTED: IF ASCUS Leni Leos M.D. LAB PAP COPATH ORDERABLES Performing Organization Address City/State/ZIP Code Phon e Number [facility] documented in this encounter Visit Diagnoses Not on filedocumented in this encounter Additional Health Concerns Assessment Noted Time PHQ-9 Depression Total Score: 7 11/04/2013 1:22 PM CRATE OPENER documented as of this encounter
--- OUTSIDE RECORDS SUMMARY | 2022-07-11 09:22 | XMS_ITS | Encounter Summary ---
:1990 Author Organization [facility] Address [address] [place] [address] Care Team Providers Name Role Phone Unavailable Primary Care Provider Unavailable Encounter Details Date Type Department Care Team Description 05/22/2014 Hospital Encounter HX [facility] Puneet Arias M.D. [address] [place] [address] (Wo shekhar) Social History Tobacco Use Types Packs/Day Years Used Date Smoking Tobacco: Never Assessed Sex Assigned at Date Recorded Not on file documented as of this encounter Last Filed Vital Signs Vital Sign Reading Time Taken Comments Blood Pressure 90/60 05/22/2014 11:19 AM CDT Pulse - - Temperature - - Respiratory Rate - - Oxygen Saturation - - Inhaled Oxygen Concentration - - Weight - - Height 164 cm (5' 4.57) 05/22/2014 11:19 AM CDT Body Mass Index - - documented in this encounter Procedure Notes Rosemary Evans, R.N. - 05/22/2014 11:19 AM CDT Depo-Provera Administration Depo-Provera Administration Entered On: 05/22/2014 11:19 CDT Performed On: 05/22/2014 11:19 CDT by ROSEMARY EVANS Depo-Provera Administration Annual Exam in the Past 12 Months : Yes Last Depo-Provera Given : 02/24/2014 CDT Needs test : No Depo-Provera Administration Comments : RETURN DATE 08/07-08/21 ROSEMARY EVANS - 05/22/2014 11:19 CDT Vitals/Ht/Wt Systolic Blood Pressure : 90 mmHg (LOW) Diastolic Blood Pressure : 60 mmHg NIBP Mean : 70 mmHg BP Location : Right upper extremity Blood Pressure Cuff Size : Large Height : 164 cm(Converted to: 5 ft 5 inch(es), 65 inch(es)) ROSEMARY EVANS - 05/22/2014 11:19 CDT Source: [facility] Document Id: [id number] CDT!13 documented in this encounter Plan of Treatment Not on filedocumented as of this encounter Visit Diagnoses Not on filedocumented in this encounter Additional Health Concerns Assessment Noted Time PHQ-9 Depression Total Score: 7 11/04/2013 1:22 PM HEALTHCARE PROJECT MANAGER documented as of this encounter
--- OUTSIDE RECORDS SUMMARY | 2022-07-11 09:22 | XMS_ITS | Encounter Summary ---
:1990 Author Organization [facility] Address [address] [place] [address] Care Team Providers Name Role Phone Unavailable Primary Care Provider Unavailable Encounter Details Date Type Department Care Team Description 09/01/2013 Hospital Encounter HX [facility] FAMILYPRA Sophia Leos M.D. Social History Tobacco Use Types Packs/Day Years Used Date Smoking Tobacco: Never Assessed Sex Assigned at Date Recorded Not on file documented as of this encounter Last Filed Vital Signs Vital Sign Reading Time Taken Comments Blood Pressure 110/58 09/01/2013 9:09 AM SERVICE SUPERINTENDENT Pulse 76 09/01/2013 9:09 AM SERVICE SUPERINTENDENT Temperature - - Respiratory Rate 18 09/01/2013 9:09 AM SERVICE SUPERINTENDENT Oxygen Saturation - - Inhaled Oxygen Concentration - - Weight 90.3 kg (199 lb 1.2 oz) 09/01/2013 9:09 AM SERVICE SUPERINTENDENT Height 164 cm (5' 4.57) 09/01/2013 9:09 AM SERVICE SUPERINTENDENT Body Mass Index 33.57 09/01/2013 9:09 AM SERVICE SUPERINTENDENT documented in this encounter Progress Notes Neha Montalvo M.D. - 09/01/2013 8:56 AM CST [id number] CHIEF COMPLAINT/REASON FOR VISIT Establish care, medication refill HISTORY OF PRESENT ILLNESS Yolanda is a 23-year-old female presenting today to establish care and she needs a refill of her Adderall, which she has been on for a long times she states and it is working well for her. She [place] in [place], but her primary clinic recently closed. She has a history of depression a couple of years ago, including a hospitalization. She currently feels more depressed than usual, due to not having her Adderall for about a week and not being able to concentrate very well. She is due for a full physical, pap including, and will follow up within 2 months for this. MEDICATIONS Adderall XR 30mg daily in the morning Depo-Provera ALLERGIES Naproxen caused itching PAST MEDICAL/SURGICAL HISTORY 1. Previously hospitalized for mild depression 2. Hospitalized after reconstructive surgery after a dog bite to her face 3. Tonsillectomy 4. ADHD IMMUNIZATIONS: Tdap 10/14/12. PREVENTATIVE HEALTH: She is due for a pap smear and will return within the next couple of months fora full physical. SOCIAL HISTORY She is single. 0. 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 HABITS: She continues to smoke. VITAL SIGNS HEIGHT: 164 cm WEIGHT: 90.3 kg BMI: 33.57 kg/m2 TEMP: 36.8 DegC PULSE: 76 /min RESP RATE: 18 /min SYSTOLIC: 110 mmHg DIASTOLIC: 58 mmHg PHYSICAL EXAMINATION GENERAL: Well-developed female in no acute distress. IMPRESSION/REPORT/PLAN 1. Healthcare maintenance Plan: She received her Gardasil #1 today. She will follow up in about 2 months for her physical, papincluded, and Gardasil #2. Discussed other age appropriate healthy lifestyle choices. 2. ADHD Plan: Continue on Adderall 30mg daily in the morning for 2 months. Follow up in 2 months, sooner if needed. 3. Contraception management Plan: She is due for her Depo shot on September 19. 4. Tobacco abuse Plan: Encouraged her to quit smoking and she will let me know if she would like any intervention in helping her quit. This document serves as a record of services personally performed by Dr. Neha Leos. It was created on their behalf by Candis Boone, a trained director biomedical engineering. The creation of this record is based on the scribe's personal observations and the provider's statements to them. This document has been checked and approved by the attending provider. Neha Leos M.D./aman Electronically Signed By: NEHA LEOS MD On: 09/01/2013 09:49 PM Source: [facility] MHSDOLBEYNONRADSYS Document Id: [id number] ICE SUPERINTENDENT documented in this encounter Miscellaneous Notes Telephone Encounter - Trent Mortensen RMayurNMayur - 05/02/2014 12:07 PM CDT Depo question From: TRENT MORTENSEN ([facility]) Sent: 05/02/2014 12:07:36 CDT Subject: Depo question Caller is: ( ) Patient ( ) Mother ( ) Father ( ) Spouse ( ) Daughter ( ) Son ( ) Pharmacy ( [facility] ) Other: Physician: Sabrina Leos Patient MRN #: Reason for Call: Message: S. Checking on Depo date B. Patient had Depo injection on 02-24-14. A. Patient is requesting the earliest date to schedule injection and PSR needs to know as well for scheduling purposes. Matilda Advised the patient's window is -. PSR will let patient know and schedule accordingly. Advice/Action: Source used: ( ) Verbalizes understanding [...] back cell phone number ( ) Source: [facility] POWERCHART Document Id: [id number] Electronically signed by Halle, [facility] Medical Research Tech [id number] at 02/25/2017 1:46 PM CDT Miscellaneous - Neha Montalvo M.D. - 09/01/2013 10:21 AM SERVICE SUPERINTENDENT Ambulatory Patient Summary [facility] [address] [place] [address] [id number] Visit Information Name: YOLANDA LEONE [facility] Number: [id number] Current Date: 09/01/2013 10:21:34 Physicians Attending Provider: NEHA LEOS MD Primary Care Provider: PCP, UNASSIGNED - YOLANDA YOUNGER JEAN PIERRE has been given the following [...] (in the morning) ADHD Routed to Printer dextroamphetamine-amphetamine (Adderall XR 30 mg oral capsule, extended release) 1 cap, Oral, once aday (in the morning) ADHD New Routed to Printer medroxyPROGESTERone (Depo-Provera) 150 mg, , Intramuscular, once Missed last Depo 01/06/11. Gave Depotoday and had her schedule for annual exam Stop Taking the Following Medications: Medication list as of 09-01-13 10:21 Attention: If you have any medications at [...] Active Depressive disorder, major, recurrent episode Active Your Upcoming Appointments Date Time Location Reason Provider 09/19/2013 09:30 [facility] ILLUSTR[facility] DEPO DR DESOUZA [facility] MEDICAL AND SCIENTIFIC ILLUSTRATOR Nurse 10/18/2013 09:35 AC MEDICAL AND SCIENTIFIC ILLUSTRATOR trolley worker exam Nicolasa Desouza DO Attention: Contact your local Clinic if further appointment detail needed. Your Goals/Additional instructions: Source: [facility] POWERCHART Document Id: [id number] ICE SUPERINTENDENT Miscellaneous - Neha Montalvo M.D. - 09/01/2013 10:21 AM SERVICE SUPERINTENDENT Ambulatory Depart Summary [facility] [address] [facility] [place] [address] Visit Information Name: YOLANDA LEONE [facility] Number: [id number] Visit Date: 09/01/2013 10:21:33 Attending Provider: NEHA LEOS MD Primary Care Provider: PCP, UNASSIGNED - OW YOLANDA LEONE has been given the following [...] (in the morning) ADHD Routed to Printer dextroamphetamine-amphetamine (Adderall XR 30 mg oral capsule, extended release) 1 cap, Oral, once aday (in the morning) ADHD New Routed to Printer medroxyPROGESTERone (Depo-Provera) 150 mg, , Intramuscular, once Missed last Depo 01/06/11. Gave Depotoday and had her schedule for annual exam Stop Taking the Following Medications: Medication list as of 09-01-13 10:21 Attention: If you have any medications at home that are not on this list, DO NOT take them until youcontact your provider for clarification. Give a copy of your medication list to your primary care provider. Update your medication list any time medications or doses are changed and carry your medication list at all times in case of emergency. Additional Information: Source: [facility] POWERCHART Document Id: [id number] ICE SUPERINTENDENT Miscellaneous - Conversion, Historical Provider Ser - 09/01/2013 9:09 AM SERVICE SUPERINTENDENT Adult Heel Coverer Intake/History Adult Heel Coverer Intake/History Entered On: 09/01/2013 9:12 SERVICE SUPERINTENDENT Performed On: 09/01/2013 9:09 SERVICE SUPERINTENDENT by JOYA PHOENIX Intake Chief Complaint : Establish care and needs med refills Temperature Oral : 36.8 DegC(Converted to: 98.2 DegF) Peripheral Pulse Rate : 76 /min Respiratory Rate : 18 /min Heart Rhythm : Regular Systolic Blood Pressure : 110 mmHg Diastolic Blood Pressure : 58 mmHg NIBP Mean : 75 mmHg BP Location : Right upper extremity Blood Pressure Cuff Size : Large Height : 164 cm(Converted to: 5 ft 5 inch(es), 64.57 inch(es)) Actual Weight : 90.3 kg(Converted to: 199 lb 1 oz) Weight Source : Standing scale Dosing Weight Clinic : 90.3 kg Clinic BSA : 2.03 Body Mass Index : 33.57 kg/m2 JOYA PHOENIX - 09/01/2013 9:09 SERVICE SUPERINTENDENT General Info Information Given By : Patient Languages : Filipino JOYA PHOENIX - 09/01/2013 9:09 SERVICE SUPERINTENDENT Subjective Pain Symptoms : No JOYA PHOENIX - 09/01/2013 9:09 SERVICE SUPERINTENDENT Dependent Habits Tobacco Use/Currently Using : Yes Exposure to Tobacco Smoke : Patient smokes Smoking Status : Current every day smoker JOYA PHOENIX - 09/01/2013 9:09 SERVICE SUPERINTENDENT Tobacco Use Grid Type : Cigarettes Cigarette Use Packs/Day : 0.4 JOYA PHOENIX - 09/01/2013 9:09 SERVICE SUPERINTENDENT Caffeine Use Grid Caffeine Use : Current Type : Soft drinks Frequency : Occasionally JOYA PHOENIX - 09/01/2013 9:09 SERVICE SUPERINTENDENT Recreational Drug Use Grid Frequency : Occasionally JOYA PHOENIX 09/01/2013 9:09 SERVICE SUPERINTENDENT Source: [facility] POWERCHART Document Id: [id number] SERVICE SUPERINTENDENT!39 Miscellaneous - Conversion, Historical Provider Ser - 09/01/2013 9:09 AM SERVICE SUPERINTENDENT Health Assessment Health Assessment Entered On: 09/01/2013 9:13 SERVICE SUPERINTENDENT Performed On: 09/01/2013 9:09 SERVICE SUPERINTENDENT by JOYA PHOENIX Health Assessment Complete Health Assessment Complete or Modified : Annual Health Assessment Annual Health Assessment Completed : Yes JOYA PHOENIX - 09/01/2013 9:09 SERVICE SUPERINTENDENT Nutrition Nutrition Risk Factors by History Adult : None LUCIANO PHOENIXLEY 09/01/2013 9:09 SERVICE SUPERINTENDENT Functional Current Daily Living Assistance : None LUCIANO PHOENIXLEY 09/01/2013 9:09 SERVICE SUPERINTENDENT Dependent Habits Tobacco Use/Currently Using : Yes Exposure to Tobacco Smoke : Patient smokes Smoking Status : Current every day smoker LIZETT JOYA 09/01/2013 9:09 SERVICE SUPERINTENDENT Tobacco Use Grid Type : Cigarettes Cigarette Use Packs/Day : 0.4 LIZETTJOYA 09/01/2013 9:09 SERVICE SUPERINTENDENT Caffeine Use Grid Caffeine Use : Current Type : Soft drinks Frequency : Occasionally LIZETTJOYA 09/01/2013 9:09 SERVICE SUPERINTENDENT Recreational Drug Use Grid Frequency : Occasionally KELLENMARYLUOMAIRAJOYA 09/01/2013 9:09 SERVICE SUPERINTENDENT Psychosocial Domestic Abuse Concerns : None LIZETTLUCIANOJOYA 09/01/2013 9:09 SERVICE SUPERINTENDENT Advance Directive Advanced Directives : No LIZETTLUCIANOJOYA 09/01/2013 9:09 SERVICE SUPERINTENDENT Educ Needs Learning Style Preference Adult Grid Patient : Demonstration, Printed materials, Verbal explanation, Video/Educational TV Family : None LIZETT JOYA 09/01/2013 9:09 SERVICE SUPERINTENDENT Source: [facility] [employer] Document Id: [id number] SERVICE SUPERINTENDENT!32 documented in this encounter Plan of Treatment Not on filedocumented as of this encounter Visit Diagnoses Not on filedocumented in this encounter Additional Health Concerns Assessment Noted Time PHQ-9 Depression Total Score: 5 10/14/2012 1:41 PM SERVICE SUPERINTENDENT documented as of this encounter
--- OUTSIDE RECORDS SUMMARY | 2022-07-11 09:22 | XMS_ITS | Encounter Summary ---
:1990 Author Organization [facility] Address [address] [place] [address] Care Team Providers Name Role Phone Unavailable Primary Care Provider Unavailable Encounter Details Date Type Department Care Team Description 06/27/2013 Hospital Encounter HX [facility] AUAC Nicolasa Toribio D.O. Social History Tobacco Use Types Packs/Day Years Used Date Smoking Tobacco: Never Assessed Sex Assigned at Date Recorded Not on file documented as of this encounter Procedure Notes Ochoa Reyes, L.P.N. - 06/27/2013 10:01 AM CDT Depo-Provera Administration Depo-Provera Administration Entered On: 06/27/2013 10:02 CDT Performed On: 06/27/2013 10:01 CDT by OCHOA REYES LPN Depo-Provera Administration Last Depo-Provera Given : 06/27/2013 CDT Return appointment : 09/16/2013 PHARMACY GENERAL MANAGER Depo-Provera Administration Comments : lot#[id number] /WT 88.0KG OCHOA REYES LPN - 06/27/2013 10:01 CDT Source: [facility] POWERCHART Document Id: [id number] CDT!5 documented in this encounter Miscellaneous Notes Miscellaneous - Conversion, Historical Provider Ser - 07/22/2013 4:03 PM CDT General Message Document Contains Addenda Addendum by PATTI HERNANDEZ RN on 22 July 2013 16:05:[address] Pierce's office calling---States they got a fax from Dr. Desouza today for a drug screen. Tried to transfer call to get in contact with OB clinic but got cut off. From: KATIE MITCHELL ( Call Center Auto Radio Mechanic) To: Nurse Line; Sent: 07/22/2013 16:03:38 CDT Subject: General Message Caller Name/Relationship LASHAUN Facility/Wing [facility] Call Back # [phone] Reason For Call NEEDING INFO ABOUT WHEN A MEDICATION WAS STARTED. Source: [facility] [employer] Document Id: [id number] Miscellaneous - Conversion, Historical Provider Ser - 07/19/2013 12:08 PM CDT General Message Document Contains Addenda Addendum by SANJEEV ROUSSEAU LPN on 22 July 2013 13:10:36 CDT pt notified and signed med list faxed Addendum by MEGHANA TRINH DO on 22 July 2013 12:28:30 CDT From: MEGHANA TRINH DO To: KEVAN Trinh/Dillan/Case Nurse; Sent: 07/22/2013 12:28:30 CDT Subject: FW: General Message Med list printed and signed Addendum by SANJEEV ROUSSEAU LPN on 22 July 2013 11:10:52 CDT From: SANJEEV ROUSSEAU LPN ( Gayathri/Larjinger/Case Nurse) To: MEGHANA TRINH DO; Sent: 07/22/2013 11:10:52 CDT Subject: FW: General Message Addendum by CATHY MONTOYA RN on 22 July 2013 10:53:02 CDT From: CATHY MONTOYA RN ( Nurse Line) To: MEGHANA TRINH DO; KEVAN Trinh/Dillan/Case Nurse; Sent: 07/22/2013 10:53:02 CDT Subject: FW: General Message HIM called as pt was down in their office to sign the release but HIM unsure what it's about and what needs to be released. clarified that pt needs a medication list printed and signed by a provider, then that med list needs to be faxed to [facility] at [phone], this will verify that she is on Adderall d/t drug testing purposes and employment. Dr. Trinh was on-call on 07/19/13 and refilled her med. Please advise pt if you are willing to sign her med list and fax to the above facility at [phone]. pt doesn't have a PCP here. Release was signed downstairs today. pt is okay with facility getting whole med list that includes the other 2 meds she is on per verbal with pt with HIM on the phone. THank you Addendum by OLGA SOTELO RN on 19 July 2013 12:55:15 CDT Pt calls needing proof of Adderal perscription signed by and faxed to [facility] for employment/school application. Instructed pt to sign YUNIOR before infor can be sent ot another place. No current PCP Med filled to day mailed to [facility] hernandez. Pt will double check on what she needs and proceed with YUNIOR From: LENI HATHAWAY ( Call Center Auto Radio Mechanic) To: KEVAN Nurse Yajaira; Sent: 07/19/2013 12:08:06 CDT Subject: General Message Caller Name/Relationship self Facility/Wing Call Back # [phone] Reason For Call proof of rx was joel mead pt [facility] POWERCH[facility] Document Id: [id number] documented in this encounter Plan of Treatment Not on filedocumented as of this encounter Visit Diagnoses Not on filedocumented in this encounter Additional Health Concerns Assessment Noted Time PHQ-9 Depression Total Score: 5 10/14/2012 1:41 PM PHARMACY GENERAL MANAGER documented as of this encounter
--- OUTSIDE RECORDS SUMMARY | 2022-07-11 09:22 | XMS_ITS | Encounter Summary ---
:1990 Author Organization [facility] Address [address] [place] [address] Care Team Providers Name Role Phone Unavailable Primary Care Provider Unavailable Encounter Details Date Type Department Care Team Description 02/24/2014 Hospital Encounter HX [facility] Jason Gonzales, P.A. -C. [address] [place] [address] (Wo rk) Social History Tobacco Use Types Packs/Day Years Used Date Smoking Tobacco: Never Assessed Sex Assigned at Date Recorded Not on file documented as of this encounter Last Filed Vital Signs Vital Sign Reading Time Taken Comments Blood Pressure 98/68 02/24/2014 10:53 AM CDT Pulse - - Temperature - - Respiratory Rate - - Oxygen Saturation - - Inhaled Oxygen Concentration - - Weight - - Height - - Body Mass Index - - documented in this encounter Procedure Notes Rosemary Evans, R.N. - 02/24/2014 10:53 AM CDT Depo-Provera Administration Depo-Provera Administration Entered On: 02/24/2014 10:54 CDT Performed On: 02/24/2014 10:53 CDT by ROSEMARY EVANS Depo-Provera Administration Annual Exam in the Past 12 Months : Yes Last Depo-Provera Given : 12/09/2013 CDT Needs test : No Depo-Provera Administration Comments : RETURN DATE 05/12-05/26 ROSEMARY EVANS - 02/24/2014 10:53 CDT Vitals/Ht/Wt Systolic Blood Pressure : 98 mmHg Diastolic Blood Pressure : 68 mmHg NIBP Mean : 78 mmHg BP Location : Right upper extremity Blood Pressure Cuff Size : Large ROSEMARY EVANS - 02/24/2014 10:54 CDT Source: [employer] Document Id: [id number] CDT!7 documented in this encounter Plan of Treatment Not on filedocumented as of this encounter Visit Diagnoses Not on filedocumented in this encounter Additional Health Concerns Assessment Noted Time PHQ-9 Depression Total Score: 7 11/04/2013 1:22 PM LANDCARE OFFICER documented as of this encounter
--- OUTSIDE RECORDS SUMMARY | 2022-07-11 09:22 | XMS_ITS | Encounter Summary ---
:1990 Author Organization [facility] Address [address] [place] [address] Care Team Providers Name Role Phone Unavailable Primary Care Provider Unavailable Encounter Details Date Type Department Care Team Description 07/14/2013 Hospital Encounter [facility]X [facility] Naomie Shukla M.D. [address] [place], [place] [address] (Wo rk) Social History Tobacco Use Types Packs/Day Years Used Date Smoking Tobacco: Never Assessed Sex Assigned at Date Recorded Not on file documented as of this encounter Last Filed Vital Signs Vital Sign Reading Time Taken Comments Blood Pressure 110/76 07/14/2013 5:42 PM CDT Pulse 80 07/14/2013 5:42 PM CDT Temperature - - Respiratory Rate 20 07/14/2013 5:42 PM CDT Oxygen Saturation - - Inhaled Oxygen Concentration - - Weight 91.2 kg (201 lb 1 oz) 07/14/2013 5:42 PM CDT Height - - Body Mass Index 33.1 03/25/2013 4:30 PM CDT documented in this encounter Progress Notes Beverly Shukla M.D. - 07/14/2013 5:29 PM CDT [id number] CHIEF COMPLAINT/REASON FOR VISIT Acute pharyngitis and cough. HISTORY OF PRESENT ILLNESS Ms. Leone is a 23-year-old white female, typically well, who started with a sore throat. She had somelow-grade fevers, but she did not actually check her temperature. She has been having some aching and the sore throat comes and goes. She, in the past 24 hours, has developed a cough. Her cough is somewhat mucousy. She has had a bronchitis in the past. She has distant history of inhaler use. MEDICATIONS Please see today's EMR. ALLERGIES Please see today's EMR. VITAL SIGNS Please see today's EMR. PHYSICAL EXAMINATION GENERAL: Mildly ill-appearing woman. HEENT: TMs are retracted but negative. Oropharynx moderate erythema, again rapid strep is negative. NECK: Nodes are negative. CHEST: Deep rhonchi are noted. A few wheezes but she declines albuterol. IMPRESSION/REPORT/PLAN Acute bronchitis. PLAN: Cover with Zithromax. We discussed the indications, and she just seems a bit thicker than the typical viral bronchitis. The patient is aware. Recommended stop smoking. Beverly Shukla M.D./aracely Electronically Signed By: BEVERLY SHUKLA MD On: 07/20/2013 02:18 PM Source: [facility] MHSDOLBEYNONRADSYS Document Id: [id number] documented in this encounter Procedure Notes Flor Ochoa L.P.N. - 07/14/2013 5:53 PM CDT Rapid Strep A Screen POC Rapid Strep A Screen POC Entered On: 07/14/2013 17:53 CDT Performed On: 07/14/2013 17:53 CDT by FLOR OCHOA Rapid Strep A Screen POC Rapid Strep A Screen POC : Negative FLOR OCHOA - 07/14/2013 17:53 CDT Source: [facility] POWERCHART Document Id: [id number] CDT!3 documented in this encounter Miscellaneous Notes Miscellaneous - Beverly Shukla M.D. - 07/14/2013 6:09 PM CDT Work Excuse 14 July 2013 YOLANDA READ [address] [place] [address] [id number] Dear YOLANDA READ, You were examined in my office on: 07/14/2013 Reason for work excuse: Medical Illness ( [...] ) Return to Work date: _ Notes: _ Pt left early today to evaluate nonwork related illness. No further work limitation. Beverly Tobias Sincerely, BEVERLY SHUKLA [address] [place] [id number] Electronic Signature Electronically Signed By: BEVERLY SHUKLA MD On: 14 July 2013 This document has images extracted. Source: [facility] [address] Document Id: [id number] Miscellaneous - Beverly Shukla M.D. - 07/14/2013 6:04 PM CDT Ambulatory Patient Summary [facility] [address] [place] [id number] Visit Information Name: YOLANDA LEONE [facility] Number: [id number] Current Date: 07/14/2013 18:04:01 Physicians Attending Provider: UNKNOWN1, PROVIDER Primary Care Provider: PCP, UNASSIGNED - OW [...] you have problems taking your medications. Medication/Strength Dose Route Frequency Indications/Special Instructions/Comments/Notes dextroamphetamine-amphetamine (Adderall XR 30 mg oral capsule, extended release) 30 mg Oral once a day (in the morning) medroxyPROGESTERone (Depo-Provera) 150 mg Intramuscular once Missed last Depo 01/06/11. Gave Depo today and had her schedule for annual exam Attention: If you have any medications at home that are not on this list, DO NOT take them until youcontact your provider for clarification. 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 Your Goals/Additional instructions: Source: [facility] [address] Document Id: [id number] Miscellaneous - Beverly Shukla M.D. - 07/14/2013 6:04 PM CDT Ambulatory Depart Summary [address] [address] Visit Information Name: SULEMAYOLANDA [facility] Number: [id number] Visit Date: 07/14/2013 18:04:00 Attending Provider: UNKNOWN1, PROVIDER Primary Care Provider: PCP, UNASSIGNED - ALEXANDR LEONE YOLANDA GREENFIELD has been given the following list of medications: Your Medications It is important to take your medications as directed. Use a pill box or chart to help remind you to take your medications. Please let your doctor or nurse know if you have problems taking your medications. Medication/Strength Dose Route Frequency Indications/Special Instructions/Comments/Notes dextroamphetamine-amphetamine (Adderall XR 30 mg oral capsule, extended release) 30 mg Oral once a day (in the morning) medroxyPROGESTERone (Depo-Provera) 150 mg Intramuscular once Missed last Depo 01/06/11. Gave Depo today and had her schedule for annual exam Attention: If you have any medications at home that are not on this list, DO NOT take them until youcontact your provider for clarification. Additional Information: [facility] Document Id: [id number] Miscellaneous - Flor Ochoa L.P.N. 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/History Entered On: 07/14/2013 17:44 CDT Performed On: 07/14/2013 17:42 CDT by FLOR OCHOA Intake Chief Complaint : St for the past two days started to get chest pains at work fever last night ear pain Temperature Oral : 37.0 DegC(Converted to: 98.6 DegF) Peripheral Pulse Rate : 80 /min Respiratory Rate : 20 /min Systolic Blood Pressure : 110 mmHg Diastolic Blood Pressure : 76 mmHg NIBP Mean : 87 mmHg BP Location : Right upper extremity Blood Pressure Cuff Size : Regular Oxygen Therapy : Room air Actual Weight : 91.2 kg(Converted to: 201 lb 1 oz) Weight Source : Standing scale Dosing Weight Clinic : 91.2 kg FLOR OCHOA - 07/14/2013 17:42 CDT General Info Information Given By : Patient Languages : Kiswahili FLOR OCHOA - 07/14/2013 17:42 CDT Subjective Pain Symptoms : Yes FLOR OCHOA - 07/14/2013 17:42 CDT Dependent Habits Tobacco Use/Currently Using : Yes Exposure to Tobacco Smoke : Patient smokes Smoking Status : Current every day smoker FLOR OCHOA - 07/14/2013 17:42 CDT Tobacco Use Grid Cigarette Use Packs/Day : 0.5 FLOR OCHOA - 07/14/2013 17:42 CDT Caffeine Use Grid Caffeine Use : Current Type : Soft drinks Frequency : Occasionally FLOR OCHOA - 07/14/2013 17:42 CDT Recreational Drug Use Grid Frequency : Occasionally FLOR OCHOA - 07/14/2013 17:42 CDT Source: [employer] Document Id: [id number] CDT!35 documented in this encounter Plan of Treatment Not on filedocumented as of this encounter Procedures Procedure Name Priority Date/Time Associated Diagnosis Comme nts RAPID STREP A Routine 07/14/2013 6:08 PM Results for this SCREEN CDT procedure are i n the results section. documented in this encounter Results Rapid Strep A Screen (07/14/2013 6:08 PM CDT) [facility] Method Time Signature HXRapid Strep POWERCHART Confirmation HXFinal Negative for POWERCHART Group A Strep by culture. 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
--- OUTSIDE RECORDS SUMMARY | 2022-07-11 09:23 | XMS_ITS | Encounter Summary ---
:1990 Author Organization [facility] Address [address] [place] [address] Care Team Providers Name Role Phone Unavailable Primary Care Provider Unavailable Encounter Details Date Type Department Care Team Description 02/02/2013 Hospital Encounter HX [facility] Anibal Isaacs APRN, C.N.P., R. N. 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 - 02/02/2013 10:02 AM CDT [id number] CHIEF COMPLAINT/REASON FOR THE VISIT Is a test for STD. Yolanda presents today. She is wanting to be tested for herpes. Her previous partner was exposed. Hehas not even been diagnosed but he was exposed before she had intercourse with him and they have never intercourse and this partner had not had intercourse without protection, but she still would like to have a blood test. She is not having any symptoms. Has never had a rash and that partner either has never had a rash but she wants to be tested. She has, as far as chronic illness, Yolanda takes medicine for ADD and she uses Depo-Provera for control but also always uses protection. PHYSICAL EXAMINATION She is a pleasant 22-year-old, appears stated age. Her skin is warm and dry. No lesions or rashes. Regular rate and rhythm to her heart. No murmurs or extra heart sounds. Her lungs are clear. Temperature is 36.3, heart rate 97, blood pressure 109/63, weight 93.8. She is a smoker. Genital exam was deferred. IMPRESSION/REPORT/PLAN It sounds like she has been exposed, that is a possible exposure but very improbable. We will do a herpes simplex 1 and 2 antibody and followup will be related to the results. Will call with the results. Have advised protection, that is what protect against STDs using a condom and of course smoking cessation always. Call with any problems or questions that come up in the meantime. Anna Contreras N.P./jude Electronically Signed By: ANNA CONTRERAS CNP On: 02/07/2013 08:41 AM Source: [facility] MHSDOLBEYNONRADSYS Document Id: [id number] documented in this encounter Miscellaneous Notes Miscellaneous - Conversion, Historical Provider Ser - 07/19/2013 7:13 AM CDT Medication Refill Msg Document Contains Addenda Addendum by VASQUEZ VINCENT on 21 July 2013 08:59:03 CDT Rx mailed to Sarahlydia [facility] 07/20/13 @ 12:50pm Addendum by SHARMILA LINTON CMA on 19 July 2013 08:08:15 CDT From: SHARMILA LINTON CMA (KEVAN Lawler/Dillan/Case Nurse) To: [email or web address] Service; Sent: 07/19/2013 08:08:15 CDT Subject: FW: Medication Refill Msg Addendum by SHARMILA LINTON CMA on 19 July 2013 08:08:08 CDT Rx sent to customer service to be sent to [facility]. Pt. notified of below and understands sheneeds to establish with a provider before any more refills are filled. Addendum by MEGHANA LAWLER DO on 19 July 2013 07:34:47 CDT From: MEGHANA LAWLER DO To: KEVAN Lawler/Dillan/Case Nurse; Sent: 07/19/2013 07:34:47 CDT Subject: FW: Medication Refill Msg Printed. Please let her know she needs to get established with a new provider to continue to get refills. Addendum by MEGHANA LAWLER DO on 19 July 2013 07:34:12 CDT Submitted: Order:dextroamphetamine-amphetamine (Adderall XR 30 mg oral capsule, extended release) 1 cap(s) PO Daily AM Qty: 30 cap(s) Refills: 0 Substitutions Allowed Print - [id number] Signed by MEGHANA LAWLER DO 07/19/2013 07:33:49 From: JOAN RICO (AU Abstracting) To: MEGHANA LAWLER DO; Sent: 07/19/2013 07:13:43 CDT Subject: Medication Refill Msg Caller is: ( ) Patient ( ) Mother ( ) Father ( ) Spouse ( ) Daughter ( ) Son ( ) Pharmacy ( ) Other: Provider: NO PCP [facility]: [facility] : 1990 Name of Medications Needing Refill: ADDERALL XR 30 MG CAPSULE, TAKE ONE CAPSULE BY MOUTH EVERY MORNING. QTY: 30 Last Refill Date: 06/15/2013 Additional Information:Please mail hardcopy to [facility]. Last / Future Appointment: Disposition: ( ) Send to Pharmacy ( ) Call to Pharmacy ( ) Patient will order picker/assembler Script ( ) Mail Rx to Patient Source: [facility] POWERCHART Document Id: [id number] Miscellaneous - Conversion, Historical Provider Ser - 05/13/2013 3:56 PM CDT Medication Refill Msg Document Contains Addenda Addendum by FARNAZ HUTCHISON on 16 May 2013 11:22:57 CDT Mailed to [facility]. Pt informed. Addendum by ANNA CONTRERAS CNP on 16 May 2013 09:09:35 CDT From: ANNA CONTRERAS CNP To: KEVAN Abstracting; Sent: 05/16/2013 09:09:35 CDT Subject: RE: Medication Refill Msg done, and in out box Addendum by FARNAZ HUTCHISON on 16 May 2013 08:48:22 CDT Noted. waiting for Donna. From: PAULINO LERNER (KEVAN Abstracting) To: ANNA CONTRERAS CNP; Cc: KEVAN Cruz Nurse; Sent: 05/13/2013 15:56:47 CDT Subject: Medication Refill Msg Caller is: ( ) Patient ( ) Mother ( ) Father ( ) Spouse ( ) Daughter ( ) Son ( ) Pharmacy ( ) Other: Provider: ANNA CONTRERAS Pharm[facility]: [facility] : 1990 Name of Medications Needing Refill: ADDERALL XR 30 MG CP24, TAKE 1 CAPSULE BY MOUTH EVERY MORNING, QTY: 30 Last Refill Date: 03/13/13 Additional Information: Patient needs hard copy. Please mail to [facility]. Last / Future Appointment: Disposition: ( ) Send to Pharmacy ( ) Call to Pharmacy ( ) Patient will order picker/assembler Script ( ) Mail Rx to Patient Source: [facility] POWERCHART Document Id: [id number] Miscellaneous - Cathy Garcia L.PMayurN. 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 Addendum by ANNA CONTRERAS CNP on 10 March 2013 15:20:39 CDT From: ANNA CONTRERAS CNP To: [facility] Nurse; Sent: 03/10/2013 15:20:39 CDT Subject: RE: General Message ready and in my box From: CATHY GARCIA LPN [facility]) To: ANNA CONTRERAS LACE PINNER; Sent: 03/10/2013 15:07:33 CDT Subject: General Message Adderall XR 30mg daily is needing to be refilled.Pt states that she uses [facility].Would like us to call her when script is ready.[phone] Thank you Source: [facility] VerticalResponseCHART Document Id: [id number] Electronically signed by Conversion, [facility] Denial Management Representative [id number] at 02/25/2017 3:59 AM CDT Miscellaneous - Conversion, Historical Provider Ser - 03/10/2013 2:59 PM CDT General Message From: SHARMILA VARGAS ( [facility] [employer] Sales And Service Supervisor) To: [facility] Nurse; Sent: 03/10/2013 14:59:00 CDT Subject: General Message Caller Name / Relationship Call Back # pt in waiting room Reason for Call Needs RX written wants to take to [facility] Source: [facility] POWERCHART Document Id: [id number] Miscellaneous - Anna Contreras, C.N.P., R.N. - 02/04/2013 2:37 PM CDT Results Notification Document Contains Addenda Addendum by FARNAZ HUTCHISON on 04 Feb 2013 14:55:53 CDT Pt notified. From: ANNA CONTRERAS CNP To: KEVAN Cruz Nurse; Sent: 02/04/2013 14:37:33 CDT Show up: 02/04/2013 14:38:00 CDT Subject: Results Notification will notify patient that labs are neg Results: Date Result Name Value Ref Range 02/02/2013 11:21 HSV Type I IgG-Horse Shoe Negative (Negative - ) 02/02/2013 11:21 HSV Type II IgG-Horse Shoe Negative (Negative - ) 02/02/2013 11:21 HSV IgM EIA-Horse Shoe Negative (Negative - ) Source: [facility] POWERCHART Document Id: [id number] Electronically signed by Conversion, [facility] Denial Management Representative [id number] at 02/25/2017 3:59 AM CDT Miscellaneous - Conversion, Historical Provider Ser - 02/02/2013 10:06 AM CDT 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/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/History Entered On: 02/02/2013 10:09 CDT Performed On: 02/02/2013 10:06 CDT by FARNAZ HUTCHISON Intake Chief Complaint : std testing - herpes- found out past partner was diagnosed Temperature Core : 36.3 DegC(Converted to: 97.3 DegF) (LOW) Peripheral Pulse Rate : 97 /min Systolic Blood Pressure : 109 mmHg Diastolic Blood Pressure : 63 mmHg NIBP Mean : 78 mmHg BP Location : Left upper extremity Blood Pressure Cuff Size : Large Actual Weight : 93.8 kg(Converted to: 206 lb 13 oz) Weight Source : Standing scale Dosing Weight Clinic : 93.8 kg FARNAZ HUTCHISON - 02/02/2013 10:06 CDT General Info Information Given By : Patient Languages : Tajik FARNAZ HUTCHISON - 02/02/2013 10:06 CDT Subjective Pain Symptoms : No FARNAZ HUTCHISON - 02/02/2013 10:06 CDT Dependent Habits Tobacco Use/Currently Using : Yes Exposure to Tobacco Smoke : Patient smokes Smoking Status : Current every day smoker LIGHTLYFARNAZ - 02/02/2013 10:06 CDT Tobacco Use Grid Cigarette Use Packs/Day : 0.5 LIGHTLYFARNAZ - 02/02/2013 10:06 CDT Caffeine Use Grid Caffeine Use : Current Type : Soft drinks Frequency : Occasionally LIGHTLYFARNAZ - 02/02/2013 10:06 CDT Recreational Drug Use Grid Frequency : Occasionally LIGHTLYFARNAZ - 02/02/2013 10:06 CDT Source: [facility] POWERCHART Document Id: [id number] CDT!33 documented in this encounter Plan of Treatment Not on filedocumented as of this encounter Procedures Procedure Name Priority Date/Time Associated Diagnosis Comme nts HSV TYPES 1 AND 2 Routine 02/02/2013 11:21 AM Res ults for this AB CDT procedure are i n the results section. documented in this encounter Results HSV Types 1 and 2 Ab (02/02/2013 11:21 AM CDT) P athologist Signature HSV Type 1 Ab, Negative Negative POWERCHART IgG, S HSV Type 2 Ab, Negative Negative POWERCHART IgG, S HSV Ab Screen, Negative Negative POWERCHART IgM, S by EIA Comment: The performance of this assay has not be en established for use in neonates, infants or on cord blood. Test Performed by: [place] [address] Financial Wellness Coach: Fredi rose III, M.D. Specimen (Source) Anatomical Collection Method Collection Time Re ceived Time Location / / Volume Laterality Blood 02/02/2013 11:21 AM CDT Elisabeth Fu APRN.Bing., R.N. LAB MICROBIOLOGY - BLOOD ORDERABLES Performing Organization Address City/State/ZIP Code Phon e Number POWERCHART documented in this encounter Visit Diagnoses Not on filedocumented in this encounter Additional Health Concerns Assessment Noted Time PHQ-9 Depression Total Score: 5 10/14/2012 1:41 PM WINDOW CLERK documented as of this encounter
--- OUTSIDE RECORDS SUMMARY | 2022-07-11 09:23 | XMS_ITS | Encounter Summary ---
:1990 Author Organization [facility] Address [address] [place] [address] Care Team Providers Name Role Phone Unavailable Primary Care Provider Unavailable Encounter Details Date Type Department Care Team Description 12/12/2010 Hospital Encounter HX [facility] Karlo Canas M.D. Social History Tobacco Use Types Packs/Day Years Used Date Smoking Tobacco: Never Assessed Sex Assigned at Date Recorded Not on file documented as of this encounter Progress Notes Rakan Canas M.D. - 12/12/2010 11:10 AM CDT Report CLINIC NOTE [place], [place] PATIENT: [id number] NAME: YOLANDA LEONE ENCOUNTER: [id number] DATE OF : [birth year] SERVICE DATE: 12/12/10 PROVIDER: Rakan Canas MD LOCATION: CLINIC DESCRIPTION: EAR PAIN PER NURSE CHARGES: 04871 OFFICE/OUTPATIENT VISIT, EST DIAGNOSES: 780.4 DIZZINESS AND GIDDINESS 558.9 NONINF GASTROENTERIT NEC 380.10 INFEC OTITIS EXTERNA NOS 305.1 TOBACCO USE DISORDER 314.01 ATTN DEFICIT W HYPERACT 110.5 DERMATOPHYTOSIS OF BODY DOCUMENT TEXT: Patient Age: 20 Report Dictation DICTATED BY: Rakan Canas MD DATE: 12/12/2010 IMPRESSION/REPORT/PLAN 1. Left external otitis. Cortisporin otic solution 4 drops 4 times a day p.r.n. and use Tylenol for pain. 2. Patient is on Depo-Medrol for contraception. 3. Fibrocystic breasts. I instructed her on how to do breast examination, recommending that if there is any localized masses that are progressive, we would be glad to see her again and may investigate and consider an ultrasound. 4. Attention deficit 5. Tobacco use. 6. Tinea corpus hand 7,Resolving viral syndrome/gastritis Medications verified. Patient seemed pleased with those plans. She states for her attention deficit hyperactivity disorder, medication is working well. 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 A work excuse for the was given. I suggested that she return to school tomorrow since her fever is much improved and her vomiting is resolved from her viral infection with gastritis. The patient seemed pleased with the course. HISTORY OF PRESENT ILLNESS Yolanda Leone is a pleasant 20-year-old female who comes in for attention deficit hyperactivity disorder and has had a temperature since Thursday with vomiting x2. She feels dizzy. She has a low-grade fever. She missed work on Thursday and school since Thursday. She is a senior and is doing very well in school, but feels like she has been sick. She has been smoking and was strongly urged to quit smoking. She presents with her mother. She has other complaints of noticing that her breasts have lumps in them. The patient also has attention deficit hyperactivity disorder and tinea corporis on the left hand. The patient states that the breasts have been slightly tender and getting more lumpy. She is very vague as far as how long this is the situation, whether it comes and goes. She says her family history is full of cancer. She is taking Vitamin D when she remembers. VITAL SIGNS Blood pressure 110/70 after rechecking; it was initially 159/135. PHYSICAL EXAMINATION GENERAL: Examination shows a blond 20-year-old, slightly overweight, white female. HEENT: She has localized tenderness to the left ear consistent with otitis externa. She has been digging in it with Q-tips. She had a small amount of wax. Did line up, was noted, as she is very jumpy about that. Tympanic membranes can be seen through a ring of wax and that the tympanic membrane appears benign. There is mild inflammation of the tragus. BREASTS: Bilateral fibrocystic breasts with some previous scars on the right from shingles. Right axilla, the axillary nodes are palpable on the right, but not on the left. She has bilateral fibrocystic breasts with no discrete masses and some vague tenderness more on the right than the left. EXTREMITIES: Her left hand, however, does have a slight ring of dermatitis consistent with resolving tinea corporis. She says it does seem to be getting better. I suggested Lamisil x2. TCR:benedicto Rooming Doc Allergies Coded Allergies: Naproxen (Unknown,ITCHING 08/20/10) Patient History Social History Marital Status: single Occupation: STUDENT Living Arrangements: lives with father,1 brother Tobacco use or exposure? Y Type: pt is a smoker Packs per day: [id number] Cessation advise offered: Y Any use of alcohol? N Any user of caffeine? N Any recent travel? Y Travel Region(s): [place] PHQ-9 Screening Date: 06/25/10 PHQ-9 Score: 6 Surgery and Event History Tonsillectomy & Adenoidectomy, 01/30/05 Health Maint and Disease Mgmt Health Maintenance and Disease Management was reviewed. Vitals Weight: 87 kg Temperature: 37.2 C, Temporal Pulse: 109 Blood Pressure: 159/135 (Sitting, Left Arm) Comment: large cuff Additional Vitals Information Pain: Y (7) Information provided by: patient Accompanied by: mom Chief Complaint: both ears, sort of underneath by ear lobe Medication Verification: as listed Orders Medications and Procedures Prescriptions: New - Neomy Sulf/Polymyx B Sulf/Hc (Cortisporin Ear Soln) 10 ML BTL, 12/12/10 4 Drop left ear 4 times every day, #10 Milliliter, Refills 0 Dx - Otitis Externa Active - Amphet Asp/Amphet/D-Amphet (Adderall Xr) 20 MG XR.CAP, 11/29/10 20 Milligrams ORAL every day, #30 Cap, Refills 0 Dx - Attention Deficit/Hyperactive Amphetamine (Adderall Xr) 10 MG XR.CAP, 11/26/10 10 Milligrams ORAL every day, 30 Days Cap, Refills 0 Dx - Attention Deficit/Hyperactive Ibuprofen (Motrin) 800 MG TABLET, 08/20/10 800 Milligrams ORAL every 8 hours as needed, #60 Tablet, Refills 0 Dx - Joint Pain, shoulder Naproxen (Naprosyn) 500 MG TABLET, 08/15/10 500 Milligrams ORAL twice a day, 14 Days Tablet, Refills 1 Dx - Joint Pain, shoulder Acetaminophen (Tylenol Es) 500 MG TABLET, 08/15/10 1000 Milligrams ORAL twice a day, 14 Days Tablet, Refills 2 Dx - Joint Pain, shoulder Reported - Medroxyprogesterone (Depo-Provera) 150 MG/ML VIAL 150 Milligrams INTRAMUSC every 12 weeks, #4 at 2046. Source: [facility] AMCHXTRANSXSYS Document Id: [id number] documented in this encounter Miscellaneous Notes Telephone Encounter - Conversion, Historical Provider Ser - 04/15/2011 1:06 PM CDT Phone Message Document Contains Addenda Addendum by CHAITANYA SANTIAGO RN on 15 April 2011 13:14:16 CDT mom calls. pt. noted blood with BM today. first mom will confirm its blood and from red food, then mom should ask if BM harder then normal, if so recoommend increased liquids and fiber. mom does stateblood noted only in passing stool, none in underwear. mom informed to tell pt. if she notices bleeding without movement she should be seen, otherwise monitor and callback for appt. if bleeding with BM's continue From: LENI HATHAWAY To: KEVAN [facility] Nurse; Sent: 04/15/2011 13:06:54 CDT Subject: Phone Message Caller is: ( ) Patient ( ) Mother ( ) Father ( ) Spouse ( ) Daughter ( ) Son ( ) Pharmacy ( ) Other: Physician:MYKE Patient MRN #: Reason for Call: Message: Advice/Action: Source used: ( ) Verbalizes understanding [...] back cell phone number ( ) Source: 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 Addendum by JOE SCHROEDER MD on 21 March 2011 08:30:06 CDT Submitted: Order Drug: dextroamphetamine-amphetamine (Adderall XR 10 mg oral capsule, extended release) 1 cap(s) PO Daily AM Qty: 30 cap(s) Refills: 0 Print - [id number] Signed by JOE SCHROEDER MD 03/21/2011 08:29:32 Submitted: Order Drug: dextroamphetamine-amphetamine (Adderall XR 20 mg oral capsule, extended release) 1 cap(s) PO Daily AM Qty: 30 cap(s) Refills: 0 Print - [id number] Signed by JOE SCHROEDER MD 03/21/2011 08:29:32 Submitted: Complete Drug: dextroamphetamine-amphetamine (Adderall XR 10 mg oral capsule, extended release) Signed by JOE SCHROEDER MD 03/21/2011 08:29:32 Submitted: Complete Drug: dextroamphetamine-amphetamine (Adderall XR 20 mg oral capsule, extended release) Signed by JOE SCHROEDER MD 03/21/2011 08:29:31 Addendum by DIMITRIS GUAMAN LPN on 21 March 2011 08:18:46 CDT Addendum by DIMITRIS GUAMAN LPN on 21 March 2011 08:18:42 CDT needs adderall refilled, generic please will corn picker at customer service this afternoon Addendum by DIMITRIS GUAMAN LPN on 21 March 2011 07:58:00 CDT LEFT MESSAGE TO CALL BACK From: KATIE TAY To: KEVAN Guillermo Nurse; Sent: 03/21/2011 07:53:10 CDT Subject: Phone Message Caller is: ( ) Patient ( jessika richardson ) Mother ( ) Father ( ) Spouse ( ) Daughter ( ) Son ( ) Pharmacy ( ) Other: Physician:myke pt Patient MRN #: Reason for Call: would like to corn picker rx at customer service. Message: [phone] Advice/Action: Source used: ( ) Verbalizes understanding [...] back cell phone number ( ) Source: [facility] POWERCHART Document Id: [id number] Telephone Encounter - Conversion, Historical Provider Ser - 02/17/2011 4:18 PM CDT Phone Message Document Contains Addenda Addendum by CHAITANYA SANTIAGO RN on 18 Feb 2011 07:30:49 CDT correct. vianey has the rx's, just changing tab sizes to make the correct dose rx'd so pt. can obtain generic tabs Addendum by RAKAN CANAS MD on 17 Feb 2011 22:14:48 CDT From: RAKAN CANAS MD To: [facility] Nurse; Sent: 02/17/2011 22:14:48 CDT Subject: RE: Phone Message I thought we sent this to them last week Addendum by RAKAN CANAS MD on 17 Feb 2011 21:42:16 CDT From: [facility]S MD [facility]; Sent: 02/17/2011 21:42:16 CDT Subject: RE: Phone Message ok Addendum by CHAITANYA SANTIAGO RN on 17 Feb 2011 16:21:43 CDT From: CHAITANYA SANTIAGO RN ([facility] Nurse) To: RAKAN CANAS; Sent: 02/17/2011 16:21:43 CDT Subject: FW: Phone Message FYI: adi winters calls. d/t cost pt. wants generic adderall. they have the generic 10mg tabs but not 20mg's. but they have generic 5mg's and 15mg's, ok given to dispense those to make up the [id number] dose From: KATIE TAY To: [facility] Nurse; Sent: 02/17/2011 16:18:56 CDT Subject: Phone Message Caller is: ( ) Patient ( ) Mother ( ) Father ( ) Spouse ( ) Daughter ( ) Son ( ) Pharmacy ( ) Other: Physician:MYKE Patient MRN #: Reason for Call: Message: Advice/Action: Source used: ( ) Verbalizes understanding [...] back cell phone number ( ) Source: [facility] Zinch Document Id: [id number] documented in this encounter Plan of Treatment Not on filedocumented as of this encounter Visit Diagnoses Not on filedocumented in this encounter
--- OUTSIDE RECORDS SUMMARY | 2022-07-11 09:23 | XMS_ITS | Encounter Summary ---
:1990 Author Organization [facility] Address [address] [place] [address] Care Team Providers Name Role Phone Unavailable Primary Care Provider Unavailable Encounter Details Date Type Department Care Team Description 02/12/2012 Hospital Encounter HX [facility] Nicolasa Toribio D.O. Social History Tobacco Use Types Packs/Day Years Used Date Smoking Tobacco: Never Assessed Sex Assigned at Date Recorded Not on file documented as of this encounter Procedure Notes Miya Pal, L.P.N. - 02/12/2012 1:27 PM CDT Depo-Provera Administration Depo-Provera Administration Entered On: 02/12/2012 13:27 CDT Performed On: 02/12/2012 13:27 CDT by MIYA PAL LPN Depo-Provera Administration Last Depo-Provera Given : 04/13/2012 CDT Return appointment : 05/02/2012 CDT Depo-Provera Administration Comments : lot#[id number] MIYA PAL LPN - 02/12/2012 13:27 CDT Source: [facility] POWERCHART Document Id: [id number] CDT!5 documented in this encounter Plan of Treatment Not on filedocumented as of this encounter Visit Diagnoses Not on filedocumented in this encounter
--- OUTSIDE RECORDS SUMMARY | 2022-07-11 09:23 | XMS_ITS | Encounter Summary ---
:1990 Author Organization [facility] Address [address] [place] [address] Care Team Providers Name Role Phone Unavailable Primary Care Provider Unavailable Encounter Details Date Type Department Care Team Description 03/21/2011 Hospital Encounter HX [facility] Nicolasa Toribio D.O. Social History Tobacco Use Types Packs/Day Years Used Date Smoking Tobacco: Never Assessed Sex Assigned at Date Recorded Not on file documented as of this encounter Plan of Treatment Not on filedocumented as of this encounter Visit Diagnoses Not on filedocumented in this encounter
--- OUTSIDE RECORDS SUMMARY | 2022-07-11 09:23 | XMS_ITS | Encounter Summary ---
:1990 Author Organization [facility] Address [address] [place] [address] Care Team Providers Name Role Phone Unavailable Primary Care Provider Unavailable Encounter Details Date Type Department Care Team Description 10/14/2012 Hospital Encounter HX [facility] BONE DENS Gris Desouza, DMayurOMayur Social History Tobacco Use Types Packs/Day Years Used Date Smoking Tobacco: Never Assessed Sex Assigned at Date Recorded Not on file documented as of this encounter Plan of Treatment Not on filedocumented as of this encounter Procedures Procedure Name Priority Date/Time Associated Diagnosis Comme nts BMD BONE DENSITY Routine 10/14/2012 12:54 PM Resu lts for this SPINE HIPS CORRECTIVE THERAPY AIDE TEACHER procedure are i n the results section. documented in this encounter Results BMD BONE DENSITY SPINE HIPS (10/14/2012 12:54 PM CORRECTIVE THERAPY AIDE TEACHER) Anatomical Region Laterality Modality Hip, Lumbar Spine N/A Radiographic Imaging Specimen (Source) Anatomical Collection Method Collection Time Re ceived Time Location / / Volume Laterality 10/14/2012 12:54 PM CORRECTIVE THERAPY AIDE TEACHER Narrative 10/14/2012 1:06 PM CORRECTIVE THERAPY AIDE TEACHER EXAM: BD Bone Density Screening INDICATION: prolonged use of depo first assistant manager a Indication: screening, ? osteoporosis sc reening. Lumbar bone mineral density is in gms/sq uare centimeter: 1.306 Lumbar T-score is: 1.0 Z score is minor 0.1. Impression: WHO classification indicates normal. Left hip bone mineral density is in gms/ square centimeter: 1.043 T-score is 0.3 Z score is -0.6. Impression: WHO classification indicates normal. Correlation with FRAX score is recommend ed. Procedure Note Roberto Carlos Callahan M.D. / Provider, Liss theodore M.D. - 02/13/2017 EXAM: BD Bone Density Screening INDICATION: prolonged use of depo first assistant manager a Indication: screening, ? osteoporosis sc reening. Lumbar bone mineral density is in gms/sq uare centimeter: 1.306 Lumbar T-score is: 1.0 Z score is minor 0.1. Impression: WHO classification indicates normal. Left hip bone mineral density is in gms/ square centimeter: 1.043 T-score is 0.3 Z score is -0.6. Impression: WHO classification indicates normal. Correlation with FRAX score is recommend ed. 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
--- OUTSIDE RECORDS SUMMARY | 2022-07-11 09:23 | XMS_ITS | Encounter Summary ---
:1990 Author Organization [facility] Address [address] [place] [address] Care Team Providers Name Role Phone Unavailable Primary Care Provider Unavailable Encounter Details Date Type Department Care Team Description 03/25/2013 Hospital Encounter HX [facility] Provider, Historic [facility] TRAUMA UNI Social History Tobacco Use Types Packs/Day Years Used Date Smoking Tobacco: Never Assessed Sex Assigned at Date Recorded Not on file documented as of this encounter Plan of Treatment Not on filedocumented as of this encounter Visit Diagnoses Not on filedocumented in this encounter Additional Health Concerns Assessment Noted Time PHQ-9 Depression Total Score: 5 10/14/2012 1:41 PM 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
--- OUTSIDE RECORDS SUMMARY | 2022-07-11 09:23 | XMS_ITS | Encounter Summary ---
:1990 Author Organization [facility] Address [address] [place] [address] Care Team Providers Name Role Phone Unavailable Primary Care Provider Unavailable Encounter Details Date Type Department Care Team Description 10/14/2012 Hospital Encounter HX [facility] Germán Desouza D.O. Social History Tobacco Use Types Packs/Day Years Used Date Smoking Tobacco: Never Assessed Sex Assigned at Date Recorded Not on file documented as of this encounter Last Filed Vital Signs Vital Sign Reading Time Taken Comments Blood Pressure 126/74 10/14/2012 10:56 AM COMMODITY BUYER Pulse - - Temperature - - Respiratory Rate - - Oxygen Saturation - - Inhaled Oxygen Concentration - - Weight 107 kg (234 lb 12.6 oz) 10/14/2012 10:56 AM COMMODITY BUYER Height 163.5 cm (5' 4.37) 10/14/2012 10:56 AM COMMODITY BUYER Body Mass Index 39.84 10/14/2012 10:56 AM COMMODITY BUYER documented in this encounter Progress Notes Germán Desouza D.O. - 10/14/2012 12:00 AM CST CLINIC NOTE Event Type: LE DICTATED BY: Germán Desouza DO DATE: 10/14/2012 IMPRESSION/REPORT/PLAN ASSESSMENT: Gynecologic examination. PLAN: Pap smear was obtained. We will notify the patient of the results. Bone mineral density is ordered. Tetanus will be given today. The patient will also receive Depo injection today. HISTORY OF PRESENT ILLNESS The patient is a 22-year-old, 0 female who presents today for a FARMWORKER ANIMAL exam. She has been using Depo-Provera for approximately 5 years. She started in August 2007 and I did discuss this with her and felt that we should do a bone mineral density before we continued this long-term. She had also used Depo-Provera in 2004 and in early 2005 when she was on Accutane. She is agreeable to this. At this point, she states she really likes the Depo-Provera and would like to continue if she could. PAST MEDICAL/SURGICAL HISTORY PAST MEDICAL HISTORY: Positive for depression, acne, an addictive personality. PAST SURGICAL HISTORY: Positive for tonsillectomy. CURRENT MEDICATIONS Albuterol and Depo-Provera. ALLERGIES Naproxen. SOCIAL HISTORY Positive for tobacco. Negative for caffeine and alcohol. She does wear seat belts. She does not use sunscreen. She does not do her own breast exams. PREVENTIVE MEDICINE: She has had a lipid profile when she was on the Accutane. Her tetanus was in 2004, and we will this update today. FAMILY HISTORY Positive for an aunt with breast cancer. No ovarian or colon cancer. SYSTEMS REVIEW GENERAL: The patient denies fatigue. HEAD: The patient denies cephalgia, syncope. EYES: The patient denies diplopia, cataracts or glaucoma. EARS: The patient denies decreased hearing or tinnitus. NOSE: Patient denies epistaxis. THROAT: The patient denies dysphagia. CARDIOVASCULAR: The patient denies chest pain or claudication. RESPIRATORY: The patient denies shortness of breath or cough. GASTROINTESTINAL: The patient denies nausea, vomiting or diarrhea. GENITOURINARY: The patient denies dysuria or frequency. NEUROLOGIC: The patient denies seizures. MUSCULOSKELETAL: The patient denies joint aches. SKIN: The patient denies rashes. EMOTIONAL: The patient denies depression. PHQ-9 score is 5. FARMWORKER ANIMAL: Her last Pap was May 2010. She is using Depo-Provera for 5 years now. VITAL SIGNS Blood pressure 126/74, weight 106.5 kg, height 163.5 cm, pulse of 90. PHYSICAL EXAMINATION NECK: Supple without lymphadenopathy or tenderness. No thyromegaly is noted. HEART: Regular rate and rhythm without murmur. LUNGS: Clear to auscultation. BREASTS: Symmetrical without masses or abnormal discharge. ABDOMEN: Soft and nontender. No organomegaly is noted. Bowel sounds present. Jose sign is negative. LYMPHATIC: Inguinal, supraclavicular, and axillary nodes are negative. PELVIC: External female genitalia is felt to be within normal limits. Bartholin and Mulhall glands are normal. Vagina is pink. Normal rugae. Cervix is nulliparous. Uterus is anteverted, normal size. No adnexal masses are noted. RAP:aric cc: Electronically Signed By: GERMÁN DESOUZA DO On: 10/15/2012 03:23 PM Source: [facility] AMCDICTAPHONESYS Document Id: [id number] ODITY BUYER documented in this encounter Procedure Notes Ochoa Reyes LMayurP.N. - 10/14/2012 11:40 AM CST Depo-Provera Administration Document Has Been Updated Depo-Provera Administration Entered On: 10/14/2012 11:41 COMMODITY BUYER Performed On: 10/14/2012 11:40 COMMODITY BUYER by OCHOA REYES LPN Depo-Provera Administration Last Depo-Provera Given : 10/14/2012 COMMODITY BUYER Return appointment : 01/05/2013 CDT OCHOA REYES LPN - 10/14/2012 11:40 COMMODITY BUYER Depo-Provera Administration Comments : LOT#[id number] EXP OCHOA REYES LPN - 10/14/2012 11:46 COMMODITY BUYER Source: [facility] POWERCHART Document Id: [id number] ODITY BUYER documented in this encounter Miscellaneous Notes Miscellaneous - Germán Desouza DVeronica - 10/18/2012 12:00 AM CST CORRESPONDENCE MR#: [id number] October 18, 2012 Yolanda Read [address] [place] [address] Dear Yolanda: I received the report of your most recent Pap smear. It is within normal limits. At this point, I would suggest a repeat in one year. If you have any questions, please feel free to contact us. Sincerely, Germán Desouza DO RAP:ksw Electronically Signed By: GERMÁN DESOUZA DO On: 10/18/2012 02:26 PM Source: [facility] AMCDICTAPHONESYS Document Id: [id number] ODITY BUYER Marycellwilbur - Germán Desouza D.O. - 10/15/2012 12:00 AM CST CORRESPONDENCE MR#: [id number] October 15, 2012 Yolanda Read [address] [id number] Dear Yolanda: I received the report and of your GC and chlamydia. They were both negative. If you have any questions, please feel free to contact us. Sincerely, Germán Desouza DO RAP:lks Electronically Signed By: GERMÁN DESOUZA DO On: 10/15/2012 04:05 PM Source: [facility] AMCDICTAPHONESYS Document Id: [id number] ODITY BUYER Marycellwilbur - Ochoa Reyes L.P.NMayur - 10/14/2012 1:41 PM CST PHQ-9 PHQ-9 Entered On: 10/14/2012 13:41 COMMODITY BUYER Performed On: 10/14/2012 13:41 COMMODITY BUYER by OCHOA REYES LPN PHQ-9 Little interest or pleasure in [...] Not at all PHQ-9 Calculated Score : 5 OCHOA REYES LPN - 10/14/2012 13:41 COMMODITY BUYER Source: [facility] POWERCHART Document Id: [id number] ODITY BUYER Miscellaneous - Ochoa Reyes L.P.N. - 10/14/2012 10:56 AM CST Adult Student Life Dean Intake/History Adult Student Life Dean Intake/History Entered On: 10/14/2012 10:58 COMMODITY BUYER Performed On: 10/14/2012 10:56 COMMODITY BUYER by OCHOA REYES LPN Intake Chief Complaint : px/grava 0/last pap 9-10 LMP Date : depo Systolic Blood Pressure : 126mmHg Diastolic Blood Pressure : 74mmHg NIBP Mean : 91mmHg BP Location : Left upper extremity Blood Pressure Cuff Size : Large Height : 163.5cm(Converted to: 5ft 4inch(es), 64.37inch(es)) Actual Weight : 106.5kg(Converted to: 234lb 13oz) Dosing Weight Clinic : 106.50kg Clinic BSA : 2.20 Body Mass Index : 39.84kg/m2 OCHOA REYES LPN - 10/14/2012 10:56 COMMODITY BUYER General Info Information Given By : Patient OCHOA REYES LPN - 10/14/2012 10:56 COMMODITY BUYER Subjective Pain Symptoms : No OCHOA REYES LPN - 10/14/2012 10:56 COMMODITY BUYER Dependent Habits Tobacco Use/Currently Using : Yes Smoking Status : Current every day smoker OCHOA REYES LPN - 10/14/2012 10:56 COMMODITY BUYER Tobacco Use Grid Cigarette Use Packs/Day : 0.5 OCHOA REYES LPN - 10/14/2012 10:56 COMMODITY BUYER Alcohol Use : No OCHOA REYES LPN - 10/14/2012 10:56 COMMODITY BUYER Caffeine Use Grid Caffeine Use : None Type : Soft drinks Frequency : Occasionally OCHOA REYES LPN - 10/14/2012 10:56 COMMODITY BUYER Recreational Drug Use Grid Frequency : Occasionally OCHOA REYES LPN - 10/14/2012 10:56 COMMODITY BUYER Allergy Allergies (Active) naproxen Estimated Onset Date: Unspecified ; Reactions: ITCHING ; Created By: Contributor_system, AU_HX_SYS; Reaction Status: Active ; Category: Drug ; Substance: naproxen ; Type: Unknown ; Severity: <not entered> ; Updated By: Contributor_system, AU_HX_SYS; Reviewed Date: 10/14/2012 10:56 COMMODITY BUYER Source: [facility] SavvySyncCHART Document Id: [id number] ODITY BUYER Miscellaneous - Ochoa Reyes L.PMayurNMayur - 10/14/2012 10:56 AM CST Health Assessment Health Assessment Entered On: 10/14/2012 10:58 COMMODITY BUYER Performed On: 10/14/2012 10:56 COMMODITY BUYER by OCHOA REYES LPN Health Assessment Complete Health Assessment Complete or Modified : Annual Health Assessment Annual Health Assessment Completed : Yes OCHOA REYES LPN - 10/14/2012 10:56 COMMODITY BUYER Nutrition Nutrition Risk Factors by History Adult : None OCHOA REYES LPN - 10/14/2012 10:56 COMMODITY BUYER Functional Current Daily Living Assistance : None OCHOA REYES LPN - 10/14/2012 10:56 COMMODITY BUYER Dependent Habits Tobacco Use/Currently Using : Yes Smoking Status : Current every day smoker OCHOA REYES LPN - 10/14/2012 10:56 COMMODITY BUYER Tobacco Use Grid Cigarette Use Packs/Day : 0.5 OCHOA REYES LPN - 10/14/2012 10:56 COMMODITY BUYER Caffeine Use Grid Caffeine Use : Current Type : Soft drinks Frequency : Occasionally OCHOA REYES LPN - 10/14/2012 10:56 COMMODITY BUYER Recreational Drug Use Grid Frequency : Occasionally OCHOA REYES LPN - 10/14/2012 10:56 COMMODITY BUYER Psychosocial Domestic Abuse Concerns : None OCHOA REYES LPN - 10/14/2012 10:56 COMMODITY BUYER Advance Directive Advanced Directives : No OCHOA REYES LPN - 10/14/2012 10:56 COMMODITY BUYER Educ Needs Learning Style Preference Adult Grid Patient : None Family : None OCHOA REYES LPN - 10/14/2012 10:56 COMMODITY BUYER Source: [facility] POWERCHART Document Id: [id number] ODITY BUYER Miscellaneous - Germán Desouza D.O. - 10/14/2012 12:00 AM CST CORRESPONDENCE October 14, 2012 MR#: [id number] Yolanda Read [address] [id number] Dear Yolanda: I received the report from your bone mineral density. It was within normal limits. If you have any questions, please feel free to contact us. Sincerely, Germán Desouza DO RAP:dml Electronically Signed By: GERMÁN DESOUZA DO On: 10/14/2012 02:46 PM Source: [facility] AMCDICTAPHONESYS Document Id: [id number] ODITY BUYER documented in this encounter Plan of Treatment Not on filedocumented as of this encounter Procedures Procedure Name Priority Date/Time Associated Comments Diagnosis CHLAMYDIA/GONORRHOEAE Routine 10/14/2012 11:00 Re sults for this AMPLIFIED RNA AM COMMODITY BUYER procedure are in the results section. CHLAMYDIA TRACHOMATIS Routine 10/14/2012 11:00 Re sults for this AMPLIFIED RNA AM COMMODITY BUYER procedure are in the results section. documented in this encounter Results Chlamydia / Gonorrhoeae Amplified RNA (10/14/2012 11:00 AM COMMODITY BUYER) Component Value Ref Test Analysis Performed At [facility] Range Method Time Signature HX GC by Nucleic POWERCHART Acid Amplification HXFinal Negative for POWERCHART Neisseria gonorrhea by DNA amplification . HXFinal Reference: POWERCHART Negative Specimen (Source) Anatomical Collection Method Collection Time Re ceived Time Location / / Volume Laterality Cervix/Endocervix 10/14/2012 11:00 AM COMMODITY BUYER Germán Desouza D.O. LAB MICROBIOLOGY - GENERAL O RDERABLES Performing Organization Address City/State/ZIP Code Phon e Number POWERCHART Chlamydia Trachomatis Amplified RNA (10/14/2012 11:00 AM COMMODITY BUYER) Component Value Ref Test Analysis Performed At [facility] Range Method Time Signature HXChlamydia by POWERCHART Nucleic Acid Amplification HXFinal Negative for POWERCHART Chlamydia trachomitis by DNA amplification. HXFinal Reference: POWERCHART Negative Specimen (Source) Anatomical Collection Method Collection Time Re ceived Time Location / / Volume Laterality Cervix/Endocervix 10/14/2012 11:00 AM COMMODITY BUYER Germán Desouza D.O. LAB MICROBIOLOGY - GENERAL O RDERABLES Performing Organization Address City/State/ZIP Code Phon e Number POWERCHART documented in this encounter Visit Diagnoses Not on filedocumented in this encounter Additional Health Concerns Assessment Noted Time PHQ-9 Depression Total Score: 5 10/14/2012 1:41 PM COMMODITY BUYER documented as of this encounter
--- OUTSIDE RECORDS SUMMARY | 2022-07-11 09:23 | XMS_ITS | Encounter Summary ---
:1990 Author Organization [facility] Address [address] [place] [address] Care Team Providers Name Role Phone Unavailable Primary Care Provider Unavailable Encounter Details Date Type Department Care Team Description 03/25/2013 Hospital Encounter HX NO MAPPING Ed Marie M.D. 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
--- OUTSIDE RECORDS SUMMARY | 2022-07-11 09:23 | XMS_ITS | Encounter Summary ---
:1990 Author Organization [facility] Address [address] [place] [address] Care Team Providers Name Role Phone Unavailable Primary Care Provider Unavailable Encounter Details Date Type Department Care Team Description 04/04/2013 Hospital Encounter HX [facility] Nicolasa Cunningham D.O. Social History Tobacco Use Types Packs/Day Years Used Date Smoking Tobacco: Never Assessed Sex Assigned at Date Recorded Not on file documented as of this encounter Last Filed Vital Signs Vital Sign Reading Time Taken Comments Blood Pressure - - Pulse - - Temperature - - Respiratory Rate - - Oxygen Saturation - - Inhaled Oxygen Concentration - - Weight 89.9 kg (198 lb 3.1 oz) 04/04/2013 11:17 AM CDT Height - - Body Mass Index 32.62 03/25/2013 4:30 PM CDT documented in this encounter Procedure Notes Mali Olson C.M.A. - 04/04/2013 11:17 AM CDT Depo-Provera Administration Depo-Provera Administration Entered On: 04/04/2013 11:18 CDT Performed On: 04/04/2013 11:17 CDT by MALI OLSON [facility] Depo-Provera Administration Annual Exam in the Past 12 Months : No Return appointment : 06/27/2013 CDT Needs test : No Depo-Provera Administration Comments : Lot # [id number] Exp 06/2015 MALI OLSON CMA - 04/04/2013 11:17 CDT Vitals/Ht/Wt Actual Weight : 89.9 kg(Converted to: 198 lb 3 oz) Dosing Weight Clinic : 89.9 kg MALI OLSON CMA - 04/04/2013 11:17 CDT Source: [facility] POWERCHART Document Id: [id number]!9 documented in this encounter Plan of Treatment Not on filedocumented as of this encounter Visit Diagnoses Not on filedocumented in this encounter Additional Health Concerns Assessment Noted Time PHQ-9 Depression Total Score: 5 10/14/2012 1:41 PM CARTRIDGE GAUGER documented as of this encounter
--- OUTSIDE RECORDS SUMMARY | 2022-07-11 09:23 | XMS_ITS | Encounter Summary ---
:[address] [facility] Address [address] [place] [address] Care Team Providers Name Role Phone Unavailable Primary Care Provider Unavailable Encounter Details Date Type Department Care Team Description 03/21/2011 Hospital Encounter HX [facility] Nicolasa Desouza D.O. Social History Tobacco Use Types Packs/Day Years Used Date Smoking Tobacco: Never Assessed Sex Assigned at Date Recorded Not on file documented as of this encounter Plan of Treatment Not on filedocumented as of this encounter Visit Diagnoses Not on filedocumented in this encounter
--- OUTSIDE RECORDS SUMMARY | 2022-07-11 09:23 | XMS_ITS | Encounter Summary ---
:1990 Author Organization [facility] Address [address] [place] [address] Care Team Providers Name Role Phone Unavailable Primary Care Provider Unavailable Encounter Details Date Type Department Care Team Description 08/20/2010 Hospital Encounter HX [facility] Jayson Devries M.D. Social History Tobacco Use Types Packs/Day Years Used Date Smoking Tobacco: Never Assessed Sex Assigned at Date Recorded Not on file documented as of this encounter Plan of Treatment Not on filedocumented as of this encounter Visit Diagnoses Not on filedocumented in this encounter
--- OUTSIDE RECORDS SUMMARY | 2022-07-11 09:23 | XMS_ITS | Encounter Summary ---
:1990 Author Organization [facility] Address [address] [place] [address] Care Team Providers Name Role Phone Unavailable Primary Care Provider Unavailable Encounter Details Date Type Department Care Team Description 10/17/2010 Hospital Encounter HX [facility] OBGYNicolasa Brice D.O. Social History Tobacco Use Types Packs/Day Years Used Date Smoking Tobacco: Never Assessed Sex Assigned at Date Recorded Not on file documented as of this encounter Progress Notes Nicolasa Desouza D.O. - 10/17/2010 12:30 PM CST Report [place], [place] PATIENT: [id number] NAME: YOLANDA LEONE ENCOUNTER: [id number] DATE OF : [birth year] SERVICE DATE: 10/17/10 PROVIDER: Nicolasa Desouza DO LOCATION: CLINIC DESCRIPTION: DEPO 3:30 CHARGES: [id number] INJECTION SUBCU/IM J1055 MEDROXYPROGESTERONE,150 MG CONTRACEPTIVE DIAGNOSES: V25.49 CONTRACEPT SURVEILL NEC Source: [facility] AMCHXTRANSXSYS Document Id: [id number] Electronically signed by Halle [facility] Corporate Development Officer [id number] at 03/30/2017 9:13 PM CDT documented in this encounter Plan of Treatment Not on filedocumented as of this encounter Visit Diagnoses Not on filedocumented in this encounter
--- OUTSIDE RECORDS SUMMARY | 2022-07-11 09:23 | XMS_ITS | Encounter Summary ---
:1990 Author Organization [facility] Address [address] [place] [address] Care Team Providers Name Role Phone Unavailable Primary Care Provider Unavailable Encounter Details Date Type Department Care Team Description 03/25/2013 Hospital Encounter HX [facility] Social History Tobacco Use Types Packs/Day Years Used Date Smoking Tobacco: Never Assessed Sex Assigned at Date Recorded Not on file documented as of this encounter Plan of Treatment Not on filedocumented as of this encounter Visit Diagnoses Not on filedocumented in this encounter Additional Health Concerns Assessment Noted Time PHQ-9 Depression Total Score: 5 10/14/2012 1:41 PM 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
--- OUTSIDE RECORDS SUMMARY | 2022-07-11 09:23 | XMS_ITS | Encounter Summary ---
:1990 Author Organization [facility] Address [address] [place] [address] Care Team Providers Name Role Phone Unavailable Primary Care Provider Unavailable Encounter Details Date Type Department Care Team Description 03/25/2013 Hospital Encounter HX NO MAPPING Ed Marie M.D. 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
--- OUTSIDE RECORDS SUMMARY | 2022-07-11 09:23 | XMS_ITS | Encounter Summary ---
:1990 Author Organization [facility] Address [address] [place] [address] Care Team Providers Name Role Phone Unavailable Primary Care Provider Unavailable Encounter Details Date Type Department Care Team Description 06/03/2011 Hospital Encounter HX [facility] Karlo Canas M.D. Social History Tobacco Use Types Packs/Day Years Used Date Smoking Tobacco: Never Assessed Sex Assigned at Date Recorded Not on file documented as of this encounter Progress Notes Rakan Canas M.D. - 06/03/2011 12:00 AM CDT CLINIC NOTE Event Type: LE DICTATED BY: Rakan Canas MD DATE: 06/03/2011 IMPRESSION/REPORT/PLAN Paraspinous muscle spasm and low back syndrome. Smoker who is overweight. PLAN: I did refill her ADHD meds. 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 Will allow her to go back to partial work with limiting less than 10 pounds but nothing over. She can walk and sit and not twist, bend but can drive. See work order status for details. I will attempt to get her into physical therapy and recheck in 2-3 weeks. Smoking cessation strongly urged and maximizing vitamin D also suggested. CHIEF COMPLAINT/REASON FOR VISIT Low back pain. HISTORY OF PRESENT ILLNESS The patient states that she is living in a home with 4 friends who all smoke. She just woke up one day and had very severe back pain for which she has been going to a chiropractor. 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 She has been off all week and thinks she can go back if she had a sit down job or something that would limit bending, et cetera. She states it is no better on 800 of ibuprofen daily and that various therapies like chiropractic have been hurting her and she feels that it is not doing any better. She, however, does like the ultrasound, seems to have helped it some. SYSTEMS REVIEW She denies any incontinence. She does have hearing loss. VITAL SIGNS She has no fever. PHYSICAL EXAMINATION GENERAL: An obese, pleasant white female who smells of cigarettes. HEENT: Exam of the ear shows ear wax build-up for which we did an ear wash. NEURO: Exam shows her DTRs equal and symmetrical. MUSCULOSKELETAL: She has increased paraspinous muscle spasm. No evidence of bruising, although she states it feels like a bruise. Straight-leg raising is negative. She has no localized tenderness to percussion of the spine but was told that she had an extra bone some place in the back. TCR:katelyn/manan cc: Electronically Signed By: RAKAN CANAS MD On: 06/05/2011 10:16 PM Source: [facility] AMCDICTAPHONESYS Document Id: [id number] documented in this encounter Miscellaneous Notes Telephone Encounter - Conversion, Historical Provider Ser - 08/28/2011 11:10 AM CST Phone Message Document Contains Addenda Addendum by ANG SIMON RN on 28 August 2011 11:11:25 MEAT CUTTER APPRENTICE Mom will call back with more info on med supply. From: TRAVIS ROBERTS ([facility]) To: [facility] Nurse; Sent: 08/28/2011 11:10:55 MEAT CUTTER APPRENTICE Subject: Phone Message Caller is: ( ) Patient ( ) Mother ( ) Father ( ) Spouse ( ) Daughter ( ) Son ( ) Pharmacy ( ) Other: Physician:myke pt Patient MRN #: Reason for Call: Message: [...] back cell phone number ( ) [facility] Document Id: [id number] Telephone Encounter - Conversion, Historical Provider Ser - 08/28/2011 11:06 AM CST Phone Message Document Contains Addenda Addendum by JOE MORROW LPN on 28 August 2011 13:23:51 MEAT CUTTER APPRENTICE mailed to adi winters. Addendum by RAKAN CANAS MD on 28 August 2011 12:52:44 MEAT CUTTER APPRENTICE From: RAKAN CANAS MD To: KEVAN Canas Nurse; Sent: 08/28/2011 12:52:44 MEAT CUTTER APPRENTICE Subject: RE: Phone Message Submitted: Order Order: dextroamphetamine-amphetamine (Adderall XR 10 mg oral capsule, extended release) 1 cap(s) PO Daily AM Qty: 30 cap(s) Refills: 0 Print - [id number] Signed by RAKAN CANAS MD 08/28/2011 12:49:29 Submitted: Order Order: dextroamphetamine-amphetamine (Adderall XR 20 mg oral capsule, extended release) 1 cap(s) PO Daily AM Qty: 30 cap(s) Refills: 0 Print - [id number] Signed by RAKAN CANAS MD 08/28/2011 12:47:43 Addendum by RAKAN CANAS MD on 28 August 2011 12:52:17 MEAT CUTTER APPRENTICE From: RAKAN CANAS MD To: KEVAN VALENZUELA Nurse; Sent: 08/28/2011 12:52:17 MEAT CUTTER APPRENTICE Subject: RE: Phone Message ok Submitted: Order Order: dextroamphetamine-amphetamine (Adderall XR 10 mg oral capsule, extended release) 1 cap(s) PO Daily AM Qty: 30 cap(s) Refills: 0 Print - [id number] Signed by RAKAN CANAS MD 08/28/2011 12:49:29 Submitted: Order Order: dextroamphetamine-amphetamine (Adderall XR 20 mg oral capsule, extended release) 1 cap(s) PO Daily AM Qty: 30 cap(s) Refills: 0 Print - [id number] Signed by RAKAN CANAS MD 08/28/2011 12:47:43 Addendum by PATTI HERNANDEZ RN on 28 August 2011 11:13:21 MEAT CUTTER APPRENTICE From: PATTI HERNANDEZ RN ([facility] Nurse) To: RAKAN CANAS MD; Sent: 08/28/2011 11:13:21 MEAT CUTTER APPRENTICE Subject: FW: Phone Message Pt calling--States she needs refills on her adderall 10mg and 20mg tabs mailed to her pharmacy. Pt can be reached at [phone]. [facility] in [place]. From: TRAVIS ROBERTS ([facility]) To: KEVAN VALENZUELA Nurse; Sent: 08/28/2011 11:06:39 MEAT CUTTER APPRENTICE Subject: Phone Message Caller is: ( ) Patient ( ) Mother ( ) Father ( ) Spouse ( ) Daughter ( ) Son ( ) Pharmacy ( ) Other: Physician:myke pt Patient MRN #: Reason for Call: Message: [...] back cell phone number ( ) Source: [facility] Askuity Document Id: [id number] Telephone Encounter - Ang Mckay RKameron - 06/20/2011 3:08 PM CDT Phone Message Document Contains Addenda Addendum by JOE MORROW LPN on 20 June 2011 17:18:19 CDT Addendum by ANG MCKAY RN on 20 June 2011 15:17:42 CDT From: ANG MCKAY RN ([facility] Nurse) To: KEVAN Canas Nurse; Sent: 06/20/2011 15:17:42 CDT Subject: FW: Phone Message pt calls; [phone] She was in and got her Adderall rx recently, when she took the paper to her pharmacy she only had the rx for the 10 mg, says she was not given the rx for the 20 mg. Can you assist her? From: ANG MCKAY RN ([facility] Nurse) To: NICOLAS Nurse; Sent: 06/20/2011 15:08:05 CDT Subject: Phone Message Caller is: ( [...] back cell phone number ( ) Source: [facility] POWERCHART Document Id: [id number] Electronically signed by [facility] Cloud Automation Tester [id number] at 03/01/2017 2:01 PM CDT Miscellaneous - Rakan Canas M.D. - 06/03/2011 9:08 AM CDT Ambulatory Patient Summary [address] [address] [place] [address] Visit Information Name: YOLANDA LEONE Current Date: 06/03/2011 09:08:37 Primary Care Provider: RAKAN CANAS MD Your Medications Here is a list of your medications. It is important to take your medications as directed. Use a pillbox or chart to help remind you to take your medications. Please let your doctor or nurse know if you have problems taking your medications. Medication/Strength Dose Route Frequency Indications/Special Instructions/Comments cholecalciferol (Vitamin D3 1000 intl units oral tablet) 1,000 IntU Oral once a day ibuprofen (ibuprofen 600 mg oral tablet) 600 mg Oral three times a day Take with food and 1000mg of acetomenophen nortriptyline (nortriptyline 10 mg oral capsule) 20 mg Oral once a day (at bedtime) dextroamphetamine-amphetamine (Adderall XR 10 mg oral capsule, extended release) 1 cap(s) Oral once a day (in the morning) dextroamphetamine-amphetamine (Adderall XR 20 mg oral capsule, extended release) 1 cap(s) Oral once a day (in the morning) medroxyPROGESTERone (Depo-Provera) 150 mg Intramuscular once Missed last Depo 01/06/11. Gave Depo today and had her schedule for annual exam acetaminophen (Acetaminophen) 1000 mg Oral two times a day JOINT PAIN-SHLDER / Strength: 500 MG Comment: take 2 tabs with naprosyn bid (2x/day) max dose / day is 4000mg (8 tabs) Your Allergies & Intolerances Substance Reaction Symptoms Category Comments naproxen ITCHING Drug Your Problem List Problem Status Onset Comments Cervicalgia Active 08/14/2009 Tobacco Use Disorder Active 08/14/2009 ADHD - Attention deficit disorder with hyperactivity Active Your Recommendations We want to make sure you get the tests, immunizations, and guidance you need to stay healthy. Here is a customized list of recommendations, based on information we have in your medical record. Your doctor may have additional recommendations for you, based on your personal medical history and risk factors. You can help us by calling us to make an appointment when you are due for your tests. Additional information regarding recommendations: Test/Treatment Last Done Next Due Additional Information Screening Chlamydia every 1 year Females Age 16-24 06/03/2011 Vaccine: Tetanus every 10 years 05/09/2005 05/07/2015 Immunization to help prevent you from getting the serious disease Tetanus (Lockjaw). Your Upcoming Appointments Date Time Location Reason Provider 06/09/2011 15:15 [facility] REFINERY PX/PAP LylyNicolasa lorenzo DO Your Goals/Additional instructions: Source: [facility] POWERCHART Document Id: [id number] Electronically signed by [facility] Cloud Automation Tester [id number] at 03/01/2017 2:01 PM CDT Miscellaneous - Rakan Canas M.D. - 06/03/2011 9:08 AM CDT Ambulatory Depart Summary [address] [address] Visit Information Name: YOLANDA LEONE Current Date: 06/03/2011 09:08:35 Primary Care Provider: RAKAN CANAS MD YOLANDA LEONE has been given the following list of medications: Your Medications It is important to take your medications as directed. Use a pill box or chart to help remind you to take your medications. Please let your doctor or nurse know if you have problems taking your medications. Medication/Strength Dose Route Frequency Indications/Special Instructions/Comments cholecalciferol (Vitamin D3 1000 intl units oral tablet) 1,000 IntU Oral once a day ibuprofen (ibuprofen 600 mg oral tablet) 600 mg Oral three times a day Take with food and 1000mg of acetomenophen nortriptyline (nortriptyline 10 mg oral capsule) 20 mg Oral once a day (at bedtime) dextroamphetamine-amphetamine (Adderall XR 10 mg oral capsule, extended release) 1 cap(s) Oral once a day (in the morning) dextroamphetamine-amphetamine (Adderall XR 20 mg oral capsule, extended release) 1 cap(s) Oral once a day (in the morning) medroxyPROGESTERone (Depo-Provera) 150 mg Intramuscular once Missed last Depo 01/06/11. Gave Depo today and had her schedule for annual exam acetaminophen (Acetaminophen) 1000 mg Oral two times a day JOINT PAIN-SHLDER / Strength: 500 MG Comment: take 2 tabs with naprosyn bid (2x/day) max dose / day is 4000mg (8 tabs) Additional Information: Yes - Current list of reconciled medications is provided and explained to the patient and/or family, guardian/caregiver. Source: [facility] POWERCHART Document Id: [id number] Electronically signed by Conversion, [facility] Cloud Automation Tester [id number] at 03/01/2017 2:00 PM CDT Miscellaneous - Conversion, Historical Provider Ser - 06/03/2011 8:18 AM CDT Adult Crystalizer Tender Intake/History Adult Crystalizer Tender Intake/History Entered On: 06/03/2011 8:21 CDT Performed On: 06/03/2011 8:18 CDT by JOE MORROW LPN Intake Chief Complaint: back pain, mid back to right rib cage Onset of Symptoms: April Peripheral Pulse Rate: 105/min (HI) Systolic Blood Pressure: 121mmHg Diastolic Blood Pressure: 64mmHg NIBP Mean: 83mmHg BP Location: Left upper extremity Actual Weight: 93.800kg(Converted to: 206lb 13oz) Weight Source: Standing scale Dosing Weight Clinic: 93.80kg JOE MORROW LPN - 06/03/2011 8:18 CDT Subjective Pain Symptoms: Yes JOE MORROW LPN - 06/03/2011 8:18 CDT Pain Pain Assessment Grid Pain 1 Location: Lower back Laterality: Right Intensity: 9 JOE MORROW [facility] - 06/03/2011 8:18 CDT Dependent Habits Tobacco Use/Currently Using: Yes Alcohol Use: No JOE MORROW [facility] - 06/03/2011 8:18 CDT Caffeine Use Grid Caffeine Use: Current Type: Soft drinks JOE MORROW [facility] - 06/03/2011 8:18 CDT Recreational Drug Use Grid Frequency: Occasionally JOE MORROW [facility] - 06/03/2011 8:18 CDT Allergy Allergies (Active) naproxen Estimated Onset Date: Unspecified ; Reactions: ITCHING ; Created By: Contributor_system, AU_HX_SYS; Reaction Status: Active ; Category: Drug ; Substance: naproxen ; Type: Unknown ; Severity: <not entered> [facility] Document Id: [id number] CDT!30 documented in this encounter Plan of Treatment Not on filedocumented as of this encounter Visit Diagnoses Not on filedocumented in this encounter
--- OUTSIDE RECORDS SUMMARY | 2022-07-11 09:23 | XMS_ITS | Encounter Summary ---
:1990 Author Organization [facility] Address [address] [place] [address] Care Team Providers Name Role Phone Unavailable Primary Care Provider Unavailable Encounter Details Date Type Department Care Team Description 09/01/2011 Hospital Encounter [facility] Carmelita Jones M.D. [address] [place] [address] (Wo rk) Social History Tobacco Use Types Packs/Day Years Used Date Smoking Tobacco: Never Assessed Sex Assigned at Date Recorded Not on file documented as of this encounter Progress Notes Jack Jones M.D. - 09/01/2011 12:00 AM CST [id number] HISTORY OF PRESENT ILLNESS This 21-year-old female has a 1-day history of right-sided earache. Had a little bit of drainage and blood from the ear also. I am not sure how that occurred. No other specific concerns or problems. VITAL SIGNS Fine per EMR. PHYSICAL EXAMINATION: ENT: Oropharynx. The right ear does show some bulging and some redness of the ear drum with some loss of landmarks. There is no obvious source of bleeding at this time. There is no clot in the canal or any evidence of any significant scratches or anything else going on in the canal at this time. The left ear looked fine on exam. Neck is negative for mass or nodes of significance. IMPRESSION/REPORT/PLAN 1) Right otitis media. Cortisporin Otic in addition to Zithromax prescribed. The patient will follow up as needed. Jack Jones M.D. pas Electronically Signed By: JACK JONES MD On: 09/07/2011 11:56 AM Source: [facility] MHSDOLBEYNONRADSYS Document Id: [id number] NICAL SUPPORT ASSOCIATE documented in this encounter Miscellaneous Notes Miscellaneous - Mila Albert, LMayurP.N. - 09/01/2011 1:10 PM CST Adult Gate Shear Operator Intake/History Adult Gate Shear Operator Intake/History Entered On: 09/01/2011 13:13 TECHNICAL SUPPORT ASSOCIATE Performed On: 09/01/2011 13:10 TECHNICAL SUPPORT ASSOCIATE by MILA ALEBRT Intake Chief Complaint : Right ear aches, has had some blood drain from ear. Onset of Symptoms : Symptoms began a few days ago Temperature Oral : 36.7C(Converted to: 98.1DegF) Peripheral Pulse Rate : 88/min Respiratory Rate : 20/min Systolic Blood Pressure : 110mmHg Diastolic Blood Pressure : 76mmHg NIBP Mean : 87mmHg BP Location : Right upper extremity Actual Weight : 97.1kg(Converted to: 214lb 1oz) Dosing Weight Clinic : 97.10kg IMLA ALBERT - 09/01/2011 13:10 TECHNICAL SUPPORT ASSOCIATE Subjective Pain Symptoms : Yes MILA ALBERT 09/01/2011 13:10 TECHNICAL SUPPORT ASSOCIATE Pain Pain Assessment Grid Pain 1 Location : Ear Laterality : Right MILA ALBERT 09/01/2011 13:10 TECHNICAL SUPPORT ASSOCIATE Dependent Habits Tobacco Use/Currently Using : Yes Smoking Status : Smoker MILA ALBERT 09/01/2011 13:10 TECHNICAL SUPPORT ASSOCIATE Tobacco Use Grid Cigarette Use Packs/Day : 0.5 MILA ALBERT 09/01/2011 13:10 TECHNICAL SUPPORT ASSOCIATE Caffeine Use Grid Caffeine Use : Current Type : Soft drinks Frequency : Occasionally MILA ALBERT 09/01/2011 13:10 TECHNICAL SUPPORT ASSOCIATE Recreational Drug Use Grid Frequency : Occasionally MILA ALBERT 09/01/2011 13:10 TECHNICAL SUPPORT ASSOCIATE Allergy Allergies (Active) naproxen Estimated Onset Date: Unspecified ; Reactions: ITCHING ; Created By: Contributor_system, AU_HX_SYS; Reaction Status: Active ; Category: Drug ; Substance: naproxen ; Type: Unknown ; Severity: <not entered> ; Updated By: Contributor_system, AU_HX_SYS; Reviewed Date: 09/01/2011 13:09 TECHNICAL SUPPORT ASSOCIATE Source: [facility] BumpTop Document Id: [id number] TECHNICAL SUPPORT ASSOCIATE!34 NICAL SUPPORT ASSOCIATE documented in this encounter Plan of Treatment Not on filedocumented as of this encounter Visit Diagnoses Not on filedocumented in this encounter
--- OUTSIDE RECORDS SUMMARY | 2022-07-11 09:23 | XMS_ITS | Encounter Summary ---
:1990 Author Organization [facility] Address [address] [place] [address] Care Team Providers Name Role Phone Unavailable Primary Care Provider Unavailable Encounter Details Date Type Department Care Team Description 09/09/2010 Hospital Encounter HX NO MAPPING Mayelin Steven M.D. [address] [place] [address] [phone] (Wo rk) Social History Tobacco Use Types Packs/Day Years Used Date Smoking Tobacco: Never Assessed Sex Assigned at Date Recorded Not on file documented as of this encounter Plan of Treatment Not on filedocumented as of this encounter Visit Diagnoses Not on filedocumented in this encounter
--- OUTSIDE RECORDS SUMMARY | 2022-07-11 09:23 | XMS_ITS | Encounter Summary ---
:1990 Author Organization [facility] Address [address] [place] [address] Care Team Providers Name Role Phone Unavailable Primary Care Provider Unavailable Encounter Details Date Type Department Care Team Description 07/29/2010 Hospital Encounter HX [facility] OBNicolasa Hawkins D.O. Social History Tobacco Use Types Packs/Day Years Used Date Smoking Tobacco: Never Assessed Sex Assigned at Date Recorded Not on file documented as of this encounter Progress Notes Nicolasa Desouza D.O. - 07/29/2010 12:30 PM CDT Report [place], [place] PATIENT: [id number] NAME: YOLANDA LEONE ENCOUNTER: [id number] DATE OF : [birth year] SERVICE DATE: 07/29/10 PROVIDER: Nicolasa Desouza DO LOCATION: CLINIC DESCRIPTION: DEPO COMING AT 3:30 CHARGES: [id number] INJECTION SUBCU/IM [id number] MEDROXYPROGESTERONE,150 MG CONTRACEPTIVE DIAGNOSES: V25.49 CONTRACEPT SURVEILL NEC Source: [facility] AMCHXTRANSXSYS Document Id: [id number] Electronically signed by Halle [facility] [employer] Innkeeper [id number] at 03/31/2017 11:25 AM CDT documented in this encounter Plan of Treatment Not on filedocumented as of this encounter Visit Diagnoses Not on filedocumented in this encounter
--- OUTSIDE RECORDS SUMMARY | 2022-07-11 09:23 | XMS_ITS | Encounter Summary ---
:1990 Author Organization [facility] Address [address] [place] [address] Care Team Providers Name Role Phone Unavailable Primary Care Provider Unavailable Encounter Details Date Type Department Care Team Description 06/05/2011 - Hospital Encounter HX [facility] Yousufuddin, 06/10/2011 Robert Colin M.D. [address] [place] [address] Social History Tobacco Use Types Packs/Day Years Used Date Smoking Tobacco: Never Assessed Sex Assigned at Date Recorded Not on file documented as of this encounter Discharge Summaries Juana Campoverde R.N. - 06/10/2011 5:05 PM CDT Discharge Medication List [facility] [address] [place] [address] Discharge Medication List Name: EMILIANO LEONE Current Date: 06/10/2011 17:05:02 : 1990 12:00 AM Patient Address: [address] [facility] [phone] Patient Primary Care Provider: Name: LAUREN STRINGER MD Discharge Diagnosis: Suicidal risk in [place] would like to thank you for allowing us to assist you with your healthcare needs. The following includes patient education materials and information regarding your injury/illness. Medications Medication/Strength Dose Route Frequency Indications/Special Instructions/Comments cholecalciferol (Vitamin D3 1000 intl units oral tablet) 1,000 IntU Oral once a day dextroamphetamine-amphetamine (Adderall XR 10 mg oral capsule, [...] home that are not on this list, please contact your provider for clarification. Electronically Signed By: JEROME BERNAL MD Signed On:10-JUN-2011 09:00:39 Source: [facility] POWERCHART Document Id: [id number] Electronically signed by Halle [facility] Insurance Policy Issue Clerk [id number] at 03/01/2017 2:01 PM CDT Juana Campoverde R.N. - 06/10/2011 5:05 PM CDT Inpatient Discharge Instructions [facility] [address] [place] [address] Patient Discharge Instructions Name: SULEMA EMILIANO GREENFIELD Current Date: 06/10/2011 17:05:01 : 1990 12:00 AM Patient Address: [address] [facility] [phone] Patient Primary Care Provider: Name: LAUREN STRINGER MD Discharge Diagnosis: Suicidal risk in [place] would like to thank you for allowing us to assist you with your healthcare needs. The following includes patient education materials and information regarding your injury/illness. Comment: EMILIANO LEONE JEAN PIERRE has been given the following list of follow-up instructions, prescriptions, andpatient education materials: Follow-up Instructions With: Address: When: GREG ESPOSITO [address] [place] [address] phone, [employer] (1) , only if needed Comments: Ist openning is for Jun. pt will call and schedule appointment that works with her schedule. With: Address: When: joint cutter , only if needed Comments: Depo injection next due on Sep.01. reschedule joint cutter for H&P I, READ, EMILIANO GREENFIELD , have received the attached patient education materials/instructions and have verbalized understanding: Patient Signature Date/Time Provider Signature Date/Time Source: [facility] POWERCHART Document Id: [id number] Electronically [facility] Issue Clerk [id number] at 03/01/2017 2:01 PM CDT Juana Campoverde R.N. - 06/10/2011 5:04 PM CDT Discharge Summary Discharge Summary Entered On: 06/10/2011 17:04 CDT Performed On: 06/10/2011 17:04 CDT by JUANA ARMANDO RN DC Information Discharged to: Home independently Current Home Treatments: None Home Equipment: None Professional Skilled Services: None Special Services and Community Resources: None Mode of Discharge: Ambulatory Discharge Transportation: Private vehicle Date/Time of Discharge: 06/10/2011 17:04 CDT JUANA ARMANDO RN - 06/10/2011 17:04 CDT Source: [facility] POWERCHART Document Id: [id number] CDT!10 Jerome Bernal M.D. - 06/10/2011 12:00 AM CDT ADDENDUM Document Contains Addenda REVISION HISTORY Uploading report to correct folder. 06/26/2011 Cms Electronically Signed By: JEROME BERNAL MD On: 06/19/2011 08:53 AM Co-Signed By: JEROME BERNAL MD On: 06/19/2011 08:53 AM Source: [facility] [employer]ON[employer] Document Id: [id number] Emmanuel Lo R.N. - 06/05/2011 10:32 PM CDT ED Depart Summary [facility] Emergency Department / Urgent Care Clinical Discharge Summary PERSON INFORMATION Name EMILIANO LEONE Age 21 Years 1990 12:00 AM Sex Female Language Moroccan PCP LAUREN STRINGER MD Marital Status Single Visit Id Visit Reason Psychiatric screening exam; [facility] Specialty Enc Type Emergency Med Service Emergency Medicine Referred by Track Group [facility] ED/UC Discharge Tracking Id [id number] Checkout 06/05/2011 10:32 PM Checkin 06/05/2011 8:43 PM Acuity 2 -Emergent Dispo Type Admitted as Inpatient to this Hospital Arrival 06/05/2011 8:43 PM Reg Status Complete LOS 000 01:49 Address: [address] [phone] Comment: PROVIDER INFORMATION Provider Role Assigned Unassigned EMMANUEL LO CHIEF MARKETING OFFICER Nurse 06/05/2011 8:57 PM ERUM VALLADARES MD ED Provider 06/05/2011 8:58 PM DIAGNOSIS Comment: PATIENT EDUCATION INFORMATION Instructions: Follow up: Source: [facility] POWERCHART Document Id: [id number] Electronically signed by Halle [facility] Insurance Policy Issue Clerk [id number] at 03/01/2017 2:01 PM CDT Emmanuel Lo, R.N. - 06/05/2011 10:32 PM CDT ED Discharge Instructions [place] [address] [place] [address] Name: EMILIANO LEONE Date of : 1990 12:00 AM Visit Date: 06/05/2011 8:43 PM Address: [address] [phone] Primary Care Provider: LAUREN STRINGER MD IMPORTANT: in [place] would like to thank you for allowing us to assist youwith your healthcare needs. The following includes patient education materials and information regarding your injury/illness. Follow-Up Instructions: Patient Education Materials: Discharge Prescriptions & Home Medications: Medication/Strength Dose Route Frequency Indications/Special Instructions/Comments cholecalciferol [...] dose / day is 4000mg (8 tabs) Attention: If you have any medications at home that are not on this list, please contact your provider for clarification. Medication Reconciliation: Reconciliation is a process of identifying the most accurate list of all medications a patient is taking - including name, dosage, frequency, and route - and using this list to provide to the patient information about how to take those medications. READ, EMILIANO GREENFIELD or jonny has reviewed the home medications you have listed with us. Review the following instructions: You have NOT received any prescriptions and you have told us you are not currently taking any home medications You have NOT received any prescriptions. You have been provided a discharge medications list and you may CONTINUE taking your medications as previously prescribed by your regular providers. You have received the listed prescriptions and BEGIN all listed prescriptions as directed. Since you have listed no home medications, please check with your family doctor if you are taking any other medications. You have received the listed prescriptions and BEGIN all listed prescriptions as directed. Youhave been provided a discharge medications list and you may CONTINUE all home medications as previously prescribed by your regular providers. You have received the listed prescriptions and BEGIN all listed prescriptions as directed. Youhave been provided a discharge medications list. The following CHANGES have been made to your medication list; Otherwise, CONTINUE all home medications as previously prescribed by your regular provider. IMPORTANT: We examined and treated you today on an emergency basis only. This was not a substitute for, or an effort to provide, complete medical care. In most cases, you must let your doctor check youagain. Tell your doctor about any new or lasting problems. We cannot recognize and treat all injuries or illnesses in one Emergency Department visit. If you had special tests, such as EKG's or X- rays, we will review them again within 24 hours. We will call you if there are any new suggestions. Please follow the instructions above carefully. If you are a patient that is being discharged from the Emergency Department after receiving narcotics or other medications that may impair your judgment you may be a risk to yourself or others if you operate a motor vehicle. We recommend that you arrange a ride home with a responsible alliance party. I, EMILIANO LEONE , or responsible alliance party have received this information and my questions have been answered. I have discussed any challenges I see with this plan with the nurse or physician. Patient Signature or Responsible Green Party/Relationship Date/Time Provider Signature Date/Time Medication Reconciliation: Reconciliation is a process of identifying the most accurate list of all medications a patient is taking - including name, dosage, frequency, and route - and using this list to provide to the patient information about how to take those medications. EMILIANO LEONE or designee has reviewed the home medications you have listed with us. Review the following instructions: You have NOT received any prescriptions and you have told us you are not currently taking any home medications You have NOT received any prescriptions. You have been provided a discharge medications list and you may CONTINUE taking your medications as previously prescribed by your regular providers. You have received the listed prescriptions and BEGIN all listed prescriptions as directed. Since you have listed no home medications, please check with your family doctor if you are taking any other medications. You have received the listed prescriptions and BEGIN all listed prescriptions as directed. Youhave been provided a discharge medications list and you may CONTINUE all home medications as previously prescribed by your regular providers. You have received the listed prescriptions and BEGIN all listed prescriptions as directed. Youhave been provided a discharge medications list. The following CHANGES have been made to your medication list; Otherwise, CONTINUE all home medications as previously prescribed by your regular provider. IMPORTANT: We examined and treated you today on an emergency basis only. This was not a substitute for, or an effort to provide, complete medical care. In most cases, you must let your doctor check youagain. Tell your doctor about any new or lasting problems. We cannot recognize and treat all injuries or illnesses in one Emergency Department visit. If you had special tests, such as EKG's or X- rays, we will review them again within 24 hours. We will call you if there are any new suggestions. Please follow the instructions above carefully. If you are a patient that is being discharged from the Emergency Department after receiving narcotics or other medications that may impair your judgment you may be a risk to yourself or others if you operate a motor vehicle. We recommend that you arrange a ride home with a responsible alliance party. I, READ, EMILIANO GREENFIELD , or responsible alliance party have received this information and my questions have been answered. I have discussed any challenges I see with this plan with the nurse or physician. Patient Signature or Responsible Green Party/Relationship Date/Time Provider Signature Date/Time Source: [facility] [employer] Document Id: [id number] Electronically signed by Halle [facility] Insurance Policy Issue Clerk [id number] at 03/01/2017 2:01 PM CDT documented in this encounter Progress Notes Mariama Bolanos O.T. - 06/11/2011 7:53 AM CDT OT Discharge OT Discharge Entered On: 06/11/2011 7:54 CDT Performed On: 06/11/2011 7:53 CDT by MARIAMA BOLANOS OTR Goals Review OT Discharge Status: Patient was consistent with attending OT Life Management Skill groups. OT goalsmet. Patient was discharged on 06/10/2011. MARIAMA BOLANOS OTR - 06/11/2011 7:53 CDT General Info Pain Symptoms: No MARIAMA BOLANOS OTR - 06/11/2011 7:53 CDT OT Charge Charges - OT: Charges Not Appropriate MARIAMA BOLANOS OTR - 06/11/2011 7:53 CDT Source: [facility] [employer] Document Id: [id number] CDT!7 Zhen Meza - 06/10/2011 3:14 PM CDT WELLNESS PT ENGAGED IN THE LEARNING AND PRACTICE OF AN EMOTIONAL MANAGEMENT MEDITATION.SHE NOTED THAT SHE FOUND THE [facility] PRACTICE LEARNED YESTERDAY MORE EFFECTIVE FOR HER IN DIRECTING HER FOCUS AND OVERALL CALMING. LATER, WE MET TO DISCUSS AND COMPLETED A WELLNESS PLAN. THE PT IDENTIFIED GOALS AND PLANS TO WORK TOWARD IMPROVING HER OVERALL HEALTH AND WELLNESS.PT IS PROVIDED A COPY OF HER PLAN. Electronically Signed By: ZHEN MEZA On: 06/10/2011 03:16 pm Source: [employer] Document Id: [id number] Conversion, Deejay Provider Ser - 06/10/2011 2:10 PM CDT CBT GROUP Reviewed Cognitive Behavioral Therapy (CBT): cognitive distortions and automatic thoughts. Met goalby identifying automatic thoughts, distortions, and more positive thoughts. Demonstrated a very pleasant attitude and showed active participation. Electronically Signed By: SYDNI ANDERSON PSY.D., LP On: 06/10/2011 02:10 pm Source: [employer] Document Id: [id number] Mariama Bolanos O.Elissa. - 06/10/2011 11:27 AM CDT OT Daily Note OT Daily Note Entered On: 06/10/2011 11:29 CDT Performed On: 06/10/2011 11:27 CDT by MARIAMA BOLANOS OTR Goals Review OT Goals Reviewed: Goals reviewed and unchanged MARIAMA BOLANOS OTR - 06/10/2011 11:27 CDT General Info Pain Symptoms: No MARIAMA BOLANOS OTR - 06/10/2011 11:27 CDT Treatment OT Group Therapy Charge: Yes OT Total Treatment Time: 60minute(s) OT Treatment Response: Patient showed interest in subject. Patient joined in group discussion. Good effort. MARIAMA BOLANOS OTR - 06/10/2011 11:27 CDT Group Therapy Performance: Able to focus on issues, Puts forth effort, Reflective Response to Feeback: Listens, Shows change Group Therapy Activities: Topic: Healthy Relationships Patient's Daily Goals: Goals: To learn attitude/behaviors which build or breakdwon relationships, tolearn the difference between feeling responsible to or for others. MARIAMA BOLANOS OTR - 06/10/2011 11:27 CDT OT Charge Charges - OT: Charges Complete OT Behavioral Health Group Minutes: 60 OT Behavioral Health Group Charge: Yes MARIAMA BOLANOS OTR - 06/10/2011 11:27 CDT Source: [employer] Document Id: [id number] CDT!18 Zhen Meza - 06/09/2011 3:55 PM CDT WELLNESS PT ENGAGED IN THE LEARNING AND PRACTICE OF [facility]. Electronically Signed By: ZHEN MEZA On: 06/09/2011 03:56 pm Source: [employer] Document Id: [id number] Ibis Chao O.TMichele - 06/09/2011 12:06 PM CDT OT Daily Note OT Daily Note Entered On: 06/09/2011 12:08 CDT Performed On: 06/09/2011 12:06 CDT by IBIS CHAO OT Goals Review OT Goals Reviewed: Goals reviewed and unchanged IBIS CHAO OT - 06/09/2011 12:06 CDT General Info Reason for Referral to OT: Other: OT group session Pain Symptoms: No Weight Bearing: Full weight bearing General Mode of Communication: Verbal IBIS CHAO OT - 06/09/2011 12:06 CDT Treatment OT Group Therapy Charge: Yes OT Total Treatment Time: 60minute(s) IBIS CHAO OT - 06/09/2011 12:06 CDT Group Therapy Performance: Independent in task, Puts forth effort Response to Feeback: Accepting, Listens Group Therapy Activities: Handout provided on What do I value, worksheet. IBIS CHAO OT - 06/09/2011 12:06 CDT Education OT Education Grid Topics: Occupational Therapy plan of care Individuals Taught: Other: group session Barriers to Learning: None evident Teaching Method: Group, Printed materials Teaching Evaluation: Verbalizes understanding IBIS CHAO OT - 06/09/2011 12:06 CDT OT Charge OT Number of Patient Visits: 1 Charges - OT: Charges Complete OT Visit, Inpatient: Yes OT Group Therapy Minutes: 60minute(s) OT Group Therapy Charge: Yes IBIS CHAO OT - 06/09/2011 12:06 CDT Source: [employer] Document Id: [id number] CDT!29 Lauren Venegas Psy.D., Junior.Trang - 06/09/2011 12:00 AM CDT PROGRESS/PROCEDURE NOTE Event Type: PROG Date of : 1990 DICTATED BY: Lauren Venegas PsyD, LP DATE: 06/09/2011 TESTS ADMINISTERED DURING THIS ADMISSION: DALLAS and CPT-II. IMPRESSION/REPORT/PLAN AXIS 1: Major depression, recurrent, moderate. Attention deficit/hyperactivity disorder, combined type, probable. Adjustment disorder, not otherwise specified. AXIS 2: Antisocial traits and features. PLAN: Continue with evaluation including cognitive measures. DATA: A total of 2 hours was spent on this evaluation. The patient was administered the DALLAS in order to assess current psychiatric concerns. She produced a valid and interpretively useful profile overall. Of note, the patient endorses somatic complaints, depressive symptoms, as well as some antisocial qualities and personality. The patient reports concerns about her physical functioning and health in general. She reports being preoccupied with her health status and physical problems overall. Social interactions and conversations often will focus on her health. The patient also endorses symptoms of a personality style that involves a degree of adventurousness, risk-taking, and a tendency to be rather impulsive. Others may view her as pragmatic and perhaps unsympathetic in relationships. Her responses suggest a history of antisocial behavior. The CPT-II was also administered to the patient in order to assess her current attention status. She is exhibiting some symptoms of attention-deficit hyperactivity disorder on this particular measure. Of note, there is evidence for inattention, as well as poor impulse control and processing inefficiency. She had a total of one error of omission/inattention and 23 errors of commission/impulsivity. PHYSICAL EXAMINATION The patient was cooperative with this evaluation. She gave forth reasonable effort and was motivated to perform well. Results of this evaluation are considered to be an accurate depiction of her current psychiatric concerns. TPL:see cc Electronically Signed By: LAUREN VENEGAS On: 06/09/2011 11:26 AM Source: [facility] AMCDICTAPHONESYS Document Id: [id number] HIT Jerome Bernal M.D. - 06/09/2011 12:00 AM CDT PROGRESS/PROCEDURE NOTE Event Type: PROG Date of : 1990 DICTATED BY: Jerome Bernal MD DATE: 06/09/2011 IMPRESSION/REPORT/PLAN Willow 1: Major depressive disorder, recurrent. Attention-deficit hyperactivity disorder. Willow 2: Antisocial personality traits. Willow 3: Low back pain. PLAN: C4-SP. Medication adjustment as per order sheet. C.A.I to assist the patient with vocational concerns that are linked to her anxiety. CHIEF COMPLAINT/REASON FOR VISIT Met with the patient for supportive counseling. HISTORY OF PRESENT ILLNESS COUNSELING FOCUS: CBT was provided. PROGRESS IN TREATMENT: Patient reports decreased anxiety. CURRENT MEDICATIONS As per MAR. ALLERGIES Naprosyn. VITAL SIGNS Temperature 36.6, pulse 75, blood pressure 104/70. I met with the charge nurse and reviewed the patient's clinical condition. Chart material reviewed. Medication issues reviewed. I did review the patient's report of pain, observed behaviors. Do not believe the patient requires high dose Tylenol and ibuprofen at the same time. Will discontinue Tylenol. Patient indicates she will not be returning to work site. I believe that, since her physical lifting will be decreased, perhaps her lower back pain will improve over time as well. Patient is 21 years old. She has attention-deficit hyperactivity disorder. I believe that use of melatonin could result in complication of her mood disorder and also may result in the brain producing less melatonin in its own right in a negative feedback response to externally administered melatonin; therefore, will discontinue the melatonin. PHYSICAL EXAMINATION MENTAL STATUS EXAMINATION: The patient is dressed in hospital attire. She is alert, anxious, talks at length about work and educational concerns. MA:florencia cc Electronically Signed By: JEROME BERNAL MD On: 06/19/2011 08:54 AM Source: [facility] AM[facility]APHONESYS Document Id: [id number] Lauren Venegas Psy.D., L.P. - 06/09/2011 12:00 AM CDT PROGRESS/PROCEDURE NOTE Event Type: PROG Date of : 1990 DICTATED BY: Lauren Venegas PsyD, LP DATE: 06/09/2011 ASSESSMENT: Willow 1: Major depression, recurrent, moderate. Attention deficit hyperactivity disorder, combined type. Adjustment disorder, not otherwise specified. Willow 2: Antisocial traits and features. PLAN: Continue with evaluation including completion of the MAKENNA. TESTS ADMINISTERED DURING THIS ADMISSION: DALLAS, CPT-II, and MicroCog. DATA: A total of one hour was spent on this evaluation. The patient was administered the MicroCog assessment battery in order to assess her current cognitive skills and abilities. She obtained a general cognitive functioning index score of 88, which falls at the 21st percentile and in the upper limits of the low average range. Her information processing speed index score of 75 falls at the 5th percentile and in the borderline impaired range. This lower score is likely correlated to her problems with attention. Her attention/mental control index score of 100 falls at the 50th percentile and squarely in the average range. Reasoning and calculation difficulties are also identified and are likely correlated to her attention difficulties as well. Her index score of 62 falls at the 1st percentile and in the impaired range. She obtained a memory index score of 117, which falls at the 87th percentile and in the upper limits of the high average range. Spatial processing skills are adequately intact, and her index score of 90 falls at the 25th percentile and in the lower limits of the average range. Her reaction time index score of 112 falls at the 79th percentile and in the lower limits of the high average range. PHYSICAL EXAMINATION: The patient was cooperative with this evaluation. She gave forth reasonable effort and was motivated to perform well. Results of this evaluation are considered to be an accurate depiction of her current cognitive skills and abilities. TPJunior:imelda cc Electronically Signed By: LAUREN VENEGAS On: 06/10/2011 08:50 AM Source: [facility] [employer] Document Id: [id number] Lauren Venegas Psy.D., SabrinaPMayur - 06/09/2011 12:00 AM CDT PROGRESS/PROCEDURE NOTE Event Type: PROG Date of : 1990 DICTATED BY: Lauren Venegas PsyD, LP DATE: 06/09/2011 IMPRESSION/REPORT/PLAN ASSESSMENT: Willow 1: Major depression, recurrent, moderate. Attention deficit/hyperactivity disorder, combined type. Adjustment disorder, not otherwise specified. Antisocial traits and features. PLAN: Evaluation complete at this time. DATA: A total of one hour was spent on this evaluation. TESTS ADMINISTERED DURING THIS ADMISSION: DALLAS, CPT-II, MicroCog and MAKENNA. DATA: A total of one hour was spent on this evaluation. The patient was administered the career assessment inventory in order to help the patient clarify appropriate Occupational Therapy goals. On the general theme scales, there was a mild elevation on the social theme. This elevation indicates that she has interests similar to people who have a strong concern for others and like to help others solve personal problems. They see themselves as cheerful and popular and are usually good leaders. The artistic theme was also mildly elevated, indicating interests similar to people who have an artistic vent and prefer jobs that allow them to express themselves by creating works of art. On the basic interest area scales there were some elevations as well. Animal service was elevated, indicating a desire to work with animals and take care of them. Medical science was elevated, indicating a desire to gain medical knowledge and apply this knowledge to maintain the health with individuals. Writing was also elevated indicating a desire to express oneself by writing poetry, reporting for newspapers or writing stories for magazines. Lastly, medical service was elevated, indicating a desire to help people by giving medical assistance. 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 PHYSICAL EXAMINATION The patient was cooperative in completing this measure. She was given a copy of this measure and the results by her nurse. ALY:sal cc Electronically Signed By: LAUREN VENEGAS On: 06/10/2011 12:50 PM Source: [facility] Document Id: [id number] Greg Esposito L.I.C.S.W. - 06/08/2011 12:00 AM CDT PROGRESS/PROCEDURE NOTE Event Type: PROG Date of : 1990 DICTATED BY: WALE Ross DATE: 06/08/2011 IMPRESSION/REPORT/PLAN Willow 1: Major depressive disorder, recurrent. Attention deficit hyperactivity disorder, by history. Willow 2: Deferred. PLAN: The patient will follow her treatment plan while on this unit. HISTORY OF PRESENT ILLNESS The patient was present for this 60-minute inpatient group psychotherapy session coded [id number]. She was one of 10 attendees for today's group. The group topic was the second section of the anger management module. Group members learned about and discussed the A-B-C-D model, as well as the conflict resolution model for anger management. The majority of the time was then spent discussing assertiveness skills as well as the difference between being passive, assertive and aggressive. This patient identified herself is being passive by nature. She gave a lot of feedback regarding her own passiveness and how that has affected situations in her life and also asked several questions regarding how to become more assertive. PHYSICAL EXAMINATION MENTAL STATUS EXAMINATION: The patient's hygiene and grooming were good. She had appropriate questions and feedback throughout group. She followed along very well, and seemed to understand the information. Mood and affect were unremarkable. She did not verbalize any suicidal or homicidal thoughts. Marilou cc Electronically Signed By: GREG ESPOSITO [facility] On: 06/09/2011 07:25 am Source: [facility] Document Id: [id number] Chun Masterson D.O. - 06/08/2011 12:00 AM CDT PROGRESS/PROCEDURE NOTE Event Type: PROG Date of : 1990 DICTATED BY: Chun Masterson DO DATE: 06/08/2011 IMPRESSION/REPORT/PLAN ASSESSMENT/DIAGNOSIS: Patient invested in improving her sleep symptoms. Discussed this at length with the patient today. The patient also seems motivated for outpatient treatment. DSM-IV FORMULATION: Willow 1: Major depressive disorder, recurrent. Attention-deficit hyperactivity disorder by history. History of polysubstance abuse including cocaine and ecstasy. Willow 2: Deferred. Willow 3: Low back pain. PLAN: 1. Will continue current treatment plan. 2. Continue medications at current doses. 3. Encourage active participation in unit programming including group therapy. HISTORY OF PRESENT ILLNESS I have reviewed the patient and treatment plan with nursing staff. I met with the patient individually and spent a total time of 25 minutes with the patient in supportive psychotherapy, medication management and coordinating her care with the treatment team today. NOTES FROM NURSING: The patient reported a better night sleep with taking melatonin last evening. PATIENT REPORT: Today, reviewed concepts and behaviors to improve symptoms of insomnia and chronic sleep deprivation. The patient was receptive to this discussion. The patient reported that she felt melatonin was helpful to her last night and she slept much better. The patient is open to reading the book, No More Sleepless Nights. The patient also discussed how her pattern of previous behaviors contributed to her insomnia. Specifically, patient's discussed her past history of drug use including cocaine and ecstasy use. The patient was receptive to feedback as to how her drug use and other behaviors were affecting her sleep. The patient continues to smoke and, at times, will wake up during the middle of the night to smoke. Discussed with the patient how this habit and behavior can also be detrimental to her sleep. The patient also inquired about working with a therapist on a weekly basis to process anger issues and stress. I discussed with the patient several different times and the importance finding a good match between the patient's goals for therapy and the kind of therapy she engages in. CURRENT MEDICATIONS I have reviewed the patient's current medication profile. The patient has been compliant with medication regiment. Denies any adverse effects. VITAL SIGNS Temperature 36.8, pulse is 76, blood pressure is 90/60. PHYSICAL EXAMINATION MENTAL STATUS EXAMINATION: The patient was casually dressed and groomed today. She is a cooperative forthcoming historian who engages easily in discussion regarding various issues she is currently struggling with. Speech is normal rate, tone and volume, fluent and spontaneous. Mood is better. Affect is mood congruent. Thought formation is linear and goal-directed. Thought content no evidence for auditory, visual hallucination or perceptual disturbance. Judgment, insight and motivation are improving. The patient denies any suicidal or homicidal ideation. JUNIORP:jermain cc Electronically Signed By: CHUN MASTERSON DO On: 06/08/2011 04:19 pm Source: [facility] Document Id: [id number] Greg Esposito L.I.C.S.W. - 06/07/2011 12:00 AM CDT PROGRESS/PROCEDURE NOTE Event Type: PROG Date of : 1990 DICTATED BY: WALE Ross DATE: 06/07/2011 IMPRESSION/REPORT/PLAN Willow 1: Major depressive disorder, recurrent. Attention deficit hyperactivity disorder, by history. Willow 2: Deferred. PLAN: The patient will follow her treatment plan while on this unit. HISTORY OF PRESENT ILLNESS The patient was present for this 60-minute inpatient group psychotherapy session coded [id number]. She was one of 10 attendees for today's group. The group topic was the first section of the anger management module. Group members learned about and discussed concepts including the anger meter, triggering events to anger, various cues to anger and anger control plans. This patient was active during group, giving feedback about different levels of her anger and how she tends to handle it. She gave feedback regarding triggering events such as being cut off in traffic. She talked about anger control plans that tend to work for her. PHYSICAL EXAMINATION MENTAL STATUS EXAMINATION: The patient appeared to have good hygiene and grooming. She followed along and gave feedback appropriately throughout the group process. Her mood appeared to be good, she was smiling throughout group. She did not verbalize any suicidal or homicidal thoughts at this time. Marilou cc Electronically Signed By: GREG ESPOSITO [facility] On: 06/08/2011 08:30 am Source: [facility] Document Id: [id number] Chun Masterson D.O. - 06/07/2011 12:00 AM CDT PROGRESS/PROCEDURE NOTE Event Type: PROG Date of : 1990 DICTATED BY: Chun Masterson DO DATE: 06/07/2011 TIME: 1:17 p.m. IMPRESSION/REPORT/PLAN Reviewed with patient potential side effects of antidepressant medications including increased thoughts of suicide. Should the patient need antidepressant medication in the future, recommend considering cytochrome P450 pharmacogenetics testing. Also, briefly discussed the patient's concerns about insomnia with her. Will discuss this further with the patient tomorrow, so that we can devote full attention to this issue, as this is a primary concern of the patient's. Lastly, answered questions regarding the 72-hour hold and commitment process. Will recommend the book, No More Sleepless Nights to the patient. Also, patient was in agreement to a trial of melatonin 6 mg at bedtime. DSM-IV FORMULATION: Willow 1: Major depressive disorder, recurrent. Attention deficit hyperactivity disorder, by history. Willow 2: Deferred. Willow 3: Low back pain. PLAN: 1. Will continue current treatment plan. 2. Will initiate a trial of melatonin 6 mg at bedtime. 3. Will recommend the book, No More Sleepless Nights to Ms Read. HISTORY OF PRESENT ILLNESS I have reviewed the patient and treatment plan with nursing staff. I met with the patient individually and spent a total time of 25 minutes with the patient in supportive psychotherapy, medication management and coordinating her care with the treatment team today. NOTES FROM NURSING: The patient is unhappy about being in the hospital. PATIENT REPORT: Today, discussed several different topics with the patient. Ms Sulema states that she developed thoughts of suicide shortly after being started on the medication Pamelor by her primary care physician, Dr. Stringer. Ms Read states that she has had a similar experience when she was trialed on Celexa by her then treating psychiatrist, Dr. Stroud. Ms Leone states that she is concerned that the two antidepressant medications she has been trialed on thus far have either caused or worsened her thoughts of suicide. At this time, Ms Leone adamantly denies that she is experiencing any thoughts of suicide, and states that her mood is pretty good. Also, discussed with patient her concerns about a 4-year history of insomnia. Ms Leone's uncle in 2006 and she states that this was the triggering event for her insomnia. Read states that she feels as though she has resolved this initial issue, but has struggled with various stressors in her life and, therefore, insomnia since that time. Read states that she averages about 4 hours of sleep per night, although she recognizes her need for more sleep than this. Lastly, answered Ms Leone's questions regarding the 72-hour hold process and commitment process. Read states that she had talked to other patient's and had questions about that. The patient asked if the treatment team was considering a commitment process for her. CURRENT MEDICATIONS I have reviewed the patient's current medication profile. The patient has been compliant medication with regimen and denies any adverse effects. VITAL SIGNS Temperature is 36.2, pulse is 99, blood pressure is 95/72. PHYSICAL EXAMINATION MENTAL STATUS EXAMINATION: Ms Leone is a 21-year-old female who appears her stated age. She has the name Emiliano tattooed on her left forearm. She is dressed in a T-shirt and hospital scrub bottoms. She is a polite, cooperative and forthcoming historian. Her speech is normal rate, tone and volume, fluent and spontaneous. Her mood is euthymic today. Her affect is mood congruent showing appropriate emotional range and reactivity. Thought formation is linear, logical, goal-directed and relevant to the conversation today. Thought content, there is no evidence for auditory or visual hallucination or perceptual disturbance. The patient denies any suicidal or homicidal ideation today. Insight, judgment, and motivation are adequate. ZEYNEP:jill cc Electronically Signed By: CHUN MASTERSON DO On: 06/08/2011 09:17 am Source: [facility] Document Id: [id number] Mariama Bolanos O.T. - 06/06/2011 1:48 PM CDT OT Daily Note OT Daily Note Entered On: 06/06/2011 13:52 CDT Performed On: 06/06/2011 13:48 CDT by MARIAMA BOLANOS OTR Goals Review OT Goals Reviewed: Goals updated MARIAMA BOLANOS OTR - 06/06/2011 13:48 CDT Goals OT Patient/Caregiver Goal: Patient wiill improve psychosocial functioning MARIAMA BOLANOS OTR - 06/06/2011 13:48 CDT OT Goal Grid Activity: Other: Patient will learn life management skills to improve function Time Frame to Reach Goal (days): 7day(s) Comments (Comment: see daily note for life skill taught [MARIAMA BOLANOS OTR - 06/06/2011 13:48 CDT] ) MARIAMA BOLANOS OTR - 06/06/2011 13:48 CDT General Info Pain Symptoms: No MARIAMA BOLANOS OTR - 06/06/2011 13:48 CDT Treatment OT Group Therapy Charge: Yes OT Total Treatment Time: 90minute(s) OT Treatment Response: Patient was cooperative. Flat affect. Was pulled from group for but returned to complete her project. MARIAMA BOLANOS OTR - 06/06/2011 13:48 CDT Group Therapy Performance: Able to focus on issues, Independent in task, Puts forth effort Response to Feeback: Listens Group Therapy Activities: Topic: Lesiure Patient's Daily Goals: Goals: To learn benefits from participation in leisure/recreational activities. To complete stain glass project. MARIAMA BOLANOS OTR - 06/06/2011 13:48 CDT OT Charge Occupational Therapy Evaluation Minutes: 30minute(s) OT Evaluation Charge: Yes Charges - OT: Charges Complete OT Behavioral Health Group Minutes: 60 OT Behavioral Health Group Charge: Yes MARIAMA BOLANOS OTR - 06/06/2011 13:48 CDT Source: [facility] Document Id: [id number] Mariama Bolanos O.T. - 06/06/2011 12:00 AM CDT PROGRESS/PROCEDURE NOTE Event Type: PROG Date of : 1990 DICTATED BY: Mariama BolanosKEISHA AR# [id number] DATE: 06/06/2011 PRIMARY DIAGNOSIS: The patient has a history of depression. REASON FOR ADMISSION: The patient stated, I believe it was the pills. I was taking medications and they made me feel depressed. Stressed out over my work situation. I do not like what I am doing. Sometimes 10 hours and it is really hot there. School. Between the ages of 16 and 18 years old, I hated school. I used drugs and got in trouble. I was expelled from [employer], so I attended [employer]. I graduated from there. I started medications for my back pain, and I think medications are making me feel depressed and suicidal. I felt this way one time before when I was given Celexa. The patient was assessed at [facility] Emergency Department secondary to an episode of feeling suicidal and sad. The patient had a plan to cut herself with a paper box maker. The patient was transferred to the Psychiatric Services Unit for further evaluation and treatment. BACKGROUND INFORMATION: The patient is a 21-year-old female, currently residing with her father, her father's girlfriend, the patient's boyfriend, Terrence and the patient's 23-year-old brother in [place], [place]. The patient reported she has been with Terrence for approximately one year. No children. The patient reported she has 2 brothers, ages 33 years old and 23 years old. The patient has a 20-year-old sister. The patient's mother lives in [place]. The patient reported she and her father's girlfriend do not get along. HIGHEST GRADE COMPLETED: The patient graduated from [employer]. The patient reported she would like to go to college. However, it is scary. I know I have to grow up and be responsible. 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 My parents have always told me what I need to do. Now, I need to figure it out. WORK: The patient reported she worked at [employer] for approximately 4 months. 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 The patient reported she works between 8 and 10 hours. The patient stated, I am thinking about quitting because of there are harassment issues between me and the lady that oversees all the temporary worker. My dad works at [employer]. The patient reported she has not worked since 05/25/2011 when she hurt her back. INTERESTS/LEISURE: The patient likes to spend her time with her dog, her boyfriend and her family. The patient enjoys television and reading. The patient reported she wants to start an exercise program because she wants to lose weight. ROLES: The patient identified her primary roles as being a daughter, a girlfriend, a sister and an employee. The patient reported the 5 adults in the home split all the bills for rent, utilities and cell phone. The patient reported they are responsible for cleaning and doing laundry. HABITS: The patient felt she had a good daily schedule prior to hurting her back. The patient reported now it flip flops. I take pills, but I still cannot sleep. I sleep maybe 4 hours. My sleep has been this way since 2006 when my uncle . I was close to my uncle. The patient reported she does try to go to bed at 8 p.m., but does not fall asleep until 10:00 a.m. The patient reported she wakes up every 1 to 2 hours. The patient describes her appetite as good. I overeat. I have been trying a different diet for the last week. Patient describes her energy level as I have enough energy, but it's my back pain that affects my activity. The patient identified the primary change in how she has been spending her time as she graduated from high school, she is working and then she has a back injury. SKILLS: The, patient feels she does well in taking care of her medications and now eating breakfast every morning. The patient feels she gets along with other people pretty well. I learn to not hold grudges like I used to. I knew it is time to grow up. The patient feels that she can make little decisions and solve little problems, but she has a bigger problem with any issues that are bigger such as determining college. The patient identified having back pain as something that prevents her from participating in activities. The patient is interested in improving her skills in math. She is interested in improving her skills in making decisions and being committed to such as the college. I need to learn to deal with stress better. OUTPUT: The patient is uncertain how satisfied she is with life because I am doing what I am supposed to be doing. My parents told me I need to go to school and I graduated from high school. They told me I needed to work, so I am working, but I would rather be able to go out with my friends and have some fun. I put too much focus and I get too serious on what I am doing. The patient would like to have a chance to go off and do more things. Not so worried about working. Relax and have fun. PHYSICAL ENVIRONMENT: The patient feels she has adequate income. The patient has a set key driver's permit, but not a license. SOCIAL ENVIRONMENT: The patient identified her mother, her father, her boyfriend, her brothers and sisters as the most important people in her life. She reported they are all supportive of her. The patient stated, I'm the baby in the family. FEEDBACK: The patient knows it is time to make a change in life when, my parents tell me to do. I was told graduate from high school and then get a job. I have done all that. I did not listen to them and I did not state any money for college. The patient feels her parents affect her making changes. The patient reported she will utilize the information from other people to make changes as long as she trusts them and the information makes sense to her. The patient reported she does not go against what she believes to be correct. HISTORICAL: The patient feels she has had the usual ups and downs in life. The patient stated, it always depends upon choice a person makes. I made some bad choices and used marijuana and cocaine between the ages of 16 and 17 years old. I quit using cocaine in 2007. I quit using marijuana approximately one year ago. I have not drank any alcohol for one year. The patient felt she was doing her best in life when she is working towards her graduation. She also applied for a rotary scholarship and was granted $500. The patient identified the worst time in her life was between the ages of 16 and 17 years old and her uncle . PERSONAL CAUSATION: The patient is proud of the fact that she graduated from high school. She is proud of the fact that she enjoys helping animals and wants to be a licensed direct entry midwife. She is proud of the fact that she feels that she is able to relate to her friends and be empathic towards them. The patient lacks confidence in developing an exercise program. The patient stated, I am not comfortable with my weight. The patient was asked how successful does she think she will be in the next few months. The patient stated, I am hoping to get into the medical program. Friend's mother is a nurse and she told me about program where the government changed it from one year to 6 months. It only costs $500 and I want that money. The patient was asked what kind of work would she be doing after she went to this program and she stated, I don't know. 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 VALUES AND GOALS: The patient values her family and her dog. The patient's goals are, I want to go to college and be successful. Eventually, I want to have children and be able to provide for them. The patient's plans for the next few weeks include, I wanna be able to sit down with my family and talk to them about what is stressing me out. I would like to develop a better relationship with my dad, but it is hard to do with his girlfriend. My dad can tell me that he loves me, but emotionally, he has a hard time showing. In one year, the patient sees herself, Mo and I having our own place. I want to quit smoking in one year. Enroll in college. 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 While the patient is in the hospital, she would like to work on the following goals, stress management. Not be so serious about everything and be able to have fun. GOALS: The patient will be seen in occupational therapy Thursday through Thursday to work on life skills to improve psychosocial functioning. EDUARDA:lupis cc Electronically Signed By: MARIAMA BOLANOS On: 06/12/2011 08:50 AM Source: [facility] Document Id: [id number] documented in this encounter H&P Notes Jerome Bernal M.D. - 06/05/2011 12:00 AM CDT DISCHARGE SUMMARY Event Type: ADM Date of : 1990 DICTATED BY: Jerome Bernal MD DATE OF SERVICE: 06/05/2011 IMPRESSION/REPORT/PLAN Willow 1: Major depressive disorder recurrent. Attention-deficit hyperactivity disorder by history. Willow 2: Deferred. Willow 3: Low back pain. Willow 4: Severity of psychosocial stressors: Low back pain, unemployment, financial concerns. Willow 5: Current GAF 10. PLAN: Admit to psychiatric unit. Full code status. Activity as tolerated. Vital signs b.i.d. Safety checks every 15 minutes. C3 suicide precautions. AIMS scale. Psychologist to consult for cognitive psychological testing. Occupational Therapy assessment and treatment. Appropriate laboratory tests. Psychopharmacologic intervention as indicated. Estimated length of stay, 7 days. PATIENT ASSETS: ADL independent, cognitively intact. LIABILITIES: Physical pain, financial problems. IDENTIFICATION: This is a 21-year-old, single, female residing in [place], [place]. CHIEF COMPLAINT/REASON FOR VISIT It was a suicide threat last night. HISTORY OF PRESENT ILLNESS This is the first [facility] Psychiatric Services Unit admission for this woman. The patient reports her stress as school and work mostly. She goes on to state in regards to work I just do not know if I want to go back. She goes on to state, I am not working right now because I hurt my back and I do not have money to pay my bills. She goes on to state, I got a paper box maker and threatened to kill myself. The patient reports no change in sleep. She reports intermittent anergia. No change in motivation. She reports she has gained weight. She denies changes with memory or concentration. She reports more anxiety, denies crying. She notes that I don't get much sleep with my back-it hurts to sit and it hurts to lay down. She recalls she was on Celexa medication and that made me really suicidal. She indicates she was started on nortriptyline and this made her condition worse. She states, I got a paper box maker and threatened to kill myself. She denies homicidality. Denies hallucinations, delusions, or paranoia. She was seen in the emergency department, placed on a hold, and referred for inpatient psychiatric care. PAST MEDICAL/SURGICAL HISTORY The patient was seen by Dr. Stroud, a child psychiatrist, diagnosed with major depressive disorder and attention deficit/hyperactivity disorder in the past. She was treated with Adderall XR. Recalls she has been involved with counseling in the past after parents got and also was involved in counseling after her uncle . SURGICAL HISTORY Tonsillectomy. FAMILY HISTORY Mother has depression. MEDICAL CONDITIONS: Low back pain. CURRENT MEDICATIONS Nicotine inhaler p.r.n. Adderall XR 30 mg p.o. daily. Tylenol 1000 mg b.i.d. p.r.n. Ibuprofen 800 mg t.i.d. p.r.n. ALLERGIES: Naprosyn. Wnke-ubo-nihitxz medication use: Vitamins. Alcohol use: Denied. Illegal substance. Denied. Chewing tobacco use: Denied. Cigarette use: Positive. Caffeine use: Avoided. Abuse history: Negative. Seizure history: Negative. Head injury with loss of consciousness: I have had concussions but do not think I lost consciousness. She recalls that when she was 21 years old, she was wrestling with her friend's boyfriend. She did not go to the hospital after having some sort of a head injury, but after a few days she had bad headaches, returned to the hospital and was found to have a minor concussion. SYSTEMS REVIEW A complete review of systems was obtained by the admitting nurse and was reviewed by the undersigned. At the time of the interview, the patient denies any active problems with pain. SOCIAL HISTORY The patient was born in [place], [place]. She has two half brothers and a half sister. Father works at [employer] as a fabrication welder. Mother works at [employer]. They are . The patient believes they because he cheated on her. Patient was 11 years old when the divorce took place, and she was subsequently raised by her mother. She recalls in high school, it was, not good. I got picked on a lot. Patient noted that she was also bullied and was teased due to her size. She also notes her sister was very popular and that others expected her to be like her sister, which she was not. She did not participate in any clubs or extracurricular activities. She was involved with the [employer] in [place] from which she graduated on 03/03/2011. HOBBIES AND INTERESTS: The patient would like to go to school to be a vet. She likes hanging with my dog and my boyfriend usually because he lives with me. PHYSICAL EXAMINATION VITAL SIGNS Temperature 36.7, pulse 98, blood pressure 108/57. MENTAL STATUS EXAMINATION This is a blonde-haired young woman dressed in hospital attire. She is anxious, agitated. Speech is clear. Thought processes coherent. Associations are linear. Psychotic thoughts are denied. Judgment intact. Homicidal ideation negative. Suicidal ideation acknowledged. She is oriented in 3 spheres. Recent and remote memory are poor. Attention span and concentration are poor. Language intact. Fund of knowledge consistent with education. Mood depressed. Affect reactive. Gait and station within normal limits. MA:jarrod cc Electronically Signed By: JEROME BERNAL MD On: 06/19/2011 08:55 AM Source: [facility] Document Id: [id number] documented in this encounter Consult Notes Conversion, Historical Provider Ser - 06/09/2011 12:00 AM CDT INPATIENT PSYCH HISTORY Event Type: CON Date of : 1990 DICTATED BY: Sydni Anderson PsyD DATE: 06/09/2011 FAMILY MEETING: The patient's boyfriend and mother attended the family meeting. The patient reports that she feels back to normal and thinks Nortriptyline is what caused her to have suicidal thoughts. She reports that she wants to start seeing a therapist, plans on quitting her job, and would like to go to college. Reviewed psychological testing and diagnoses. Reviewed medication changes. The patient believes the melatonin has helped her sleep at night and stay asleep. The patient plans on discharging tomorrow at 5:00 and her boyfriend will pick her up. She would like to see Greg Esposito for therapy and would like an appointment set up. There are guns in the home, but they are locked. There are no stockpiles of medications. Suicide prevention handouts were given. ECW:jayda cc Electronically Signed By: SYDNI ANDERSON PSY.D., LP On: 06/10/2011 07:57 AM Source: [facility] Document Id: [id number] Conversion, Historical Provider Ser - 06/06/2011 12:00 AM CDT INPATIENT PSYCH HISTORY Event Type: CON Date of : 1990 DICTATED BY: Sydni Anderson PsyD DATE: 06/06/2011 IDENTIFYING INFORMATION: The patient is a 21-year-old, female from [place], [place]. She does not have a guardian. PRESENTING PROBLEM: The patient reports that she was prescribed nortriptyline for some back problem. Since she started taking this, she felt like nobody cared and that she was extremely bored. She reports she thinks that the depression increased because of this. She threatened to slit her neck with a paper box maker, and her boyfriend took it away from her. Her mom thought it would be a good idea to get looked at. The patient does not think that her symptoms are very bad. She does not think that she would actually harm herself. She denies any current thoughts to harm self or others. She reports the depression was high prior to admission but is now low. She characterizes her anxiety as low. She denied hallucinations. The patient has been taking her medications as prescribed. She reports she does have quite a few stresses in her life. She has financial stresses because she is unable to work because of her back. 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 She is trying to figure out what to do for college as well. She was under a lot of pressure to graduate high school on time and had not thought about college. Now she feels the adult stresses getting to her because she feels she needs to work and figure out college. She just graduated high school in February 2011. PSYCHIATRIC/CHEMICAL DEPENDENCY HISTORY: The patient reports there was a previous time in her life when she had suicidal thoughts, which started just after taking Celexa. She had somewhat of a suicide attempt in that she cut herself on the wrist with a piece of glass. She has a tiny scar from it and was only able to make a small cut. She denied being very serious about her suicidal thoughts at that time. She denied self-injuring. She reports being diagnosed with attention deficit hyperactivity disorder and depression. She denied a history of abuse. The patient last used alcohol 1.5 years ago. She last used cocaine in 2006 and marijuana in 2008. She used to have a significant problem with all 3 substances. She said she stopped using her garrett year of high school. This is the patient's first inpatient psychiatric hospitalization. She has seen Dr. Stroud in the past for psychiatric medications, but currently Dr. Stringer prescribes her medications. The patient denied having a therapist or case supervisor. She denied being in residential or foster placement. FAMILY PSYCHIATRIC/CHEMICAL DEPENDENCY HISTORY: The patient reports that her mother has depression. There is substance abuse in her family in that her aunt is an alcoholic and used to use meth. Her uncle from alcoholism. MARITAL/IMMEDIATE LIVING SITUATION: Patient currently lives with her father, her father's girlfriend, her brother, and her boyfriend. She denied being or having children. 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 She was born in [place] and raised in [place]. Her parents were when she was 11, which she took pretty badly. She reports she was picked on in high school quite a bit. The patient has two half brothers and one sister. Her mother works for [employer] and her father works for [employer] as a fabrication welder. EDUCATION/EMPLOYMENT HISTORY: The patient has been working at [employer] since February 2011. Previously, she worked at [employer] She reports she graduated high school and is thinking about going to college to be a licensed direct entry midwife. She is not sure where to go to college and is concerned about student loans. At the beginning of her garrett year, she only had 7 credits towards graduating. She did not attend school because of drugs and drinking. She ended up graduating on time with help of the adult learning center. The patient reports that math is hard for her, and she only has difficulty learning when she does not take her attention deficit hyperactivity disorder medications. FINANCIAL HISTORY: Patient supports herself through employment. She denied any outstanding debt or history of bankruptcy or gambling history. HISTORY: Patient denied. LEGAL HISTORY: Patient denied. STRENGTHS: The patient reports that she can love a person easily and become attached. She loves healthy animals, and she is confident. SAFETY ASSESSMENT: The patient reports her brother has guns, but they are locked and she does not have access to them. She denied any stockpiles of medications. SPIRITUALITY/RESTORATIONIST BELIEFS: The patient denied any uatsdin beliefs. COLLATERAL INFORMATION: I spoke with the patient's boyfriend, Terrence Keating (phone number is [phone]). He thinks she has been doing well up until the complaint that she took the nortriptyline. Since then she has been increasingly upset. She is somewhat stressed that she cannot work. She has been taking medications as prescribed. There is no current drug or alcohol use. This is the first time that he knows of, of any suicidal statements. He reiterated that the patient's brother has guns at home, but they are locked. No stockpiles of medications. Will attempt to schedule a family meeting for 06/09/2011 if he can get off of work. ECW:kvng Electronically Signed By: SYDNI ANDERSON PSY.D., LP On: 06/11/2011 08:42 AM Source: [facility] Document Id: [id number] documented in this encounter Nursing Notes Juana Campoverde R.N. - 06/10/2011 5:01 PM CDT Patient was discharged to home with her family. Discharge instructions were given and all of her belongings were returned to her. Electronically Signed By: JUANA ARMANDO RN On: 06/10/2011 05:03 pm Source: [employer] Document Id: [id number] Kaylene Louis R.N. - 06/10/2011 12:57 AM CDT pt note Now asleep. Electronically Signed By: KAYLENE LOUIS RN On: 06/10/2011 00:57 am Source: [employer] Document Id: [id number] Pawel Andrews R.N. - 06/09/2011 3:21 PM CDT Clinical Staffing Note: Staff in attendance: Psychiatrist-Dr. Bernal, Psychologist-Dr. Viet Venegas, Psychologist-Dr. Sydni Anderson, Wellness Practitioner-Zhen Meza, Occupational Therapist-Jeannine Bolanos, Nursing Pawel Andrews RN Admit date: 06/05/11 72 hour Hold/Commitment: Patient is currently on a 72 hour hold which expires tomorrow at 2230. Review of event preceding hospital admission: Patient reports she woke up with lower back pain on 05/25/11. Patient went in and was seen by her PCP Dr. Stringer for this. She was started on Nortriptyline for pain mgmt. Patient reported decline in mood and suicidal ideation after starting this medication. Patient also reports chronic sleep problems. Patient has been reviewing the book No More Sleepless Nights. Current Status: Patient has been attending and participating in groups. Has been pleasant and interactive with staff and peers. Testing Results: Patient completed the CPT-II which supported the diagnosis of ADHD. Patient also completed the DALLAS which indicated depression. Patient completed the MAKENNA this morning and did cognitive measures with Dr. Venegas this afternoon. CD consult: Patient has a 2 year history of using cocaine, marijuana and alcohol. Patient does not have any current chemical dependency concerns. Suicidal history/lethality: Patient presented acutely suicidal with a plan to use a paper box maker. Collateral information: Family meeting: Patient's mother and her boyfriend participated in a family meeting this morning. Patient has received multiple calls of support from her family and boyfriend since admission. Nursing issues: Patient received Depo-provera 150mg IM injection today by [facility] nursing staff. Patientwill be due for her next injection on 09/01/11. Patient's appointment for a PAP smear was cancelled for today. 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 Patient has a set key driver'spermit, but does not have a set key driver's licence. Therefore she relies on family for rides from myZamana Moustapha appointments. 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 Because patient is temp status, she does not qualify for benefits. Patient plans on quitting her job as she feels this is what caused her back pain. Patient, therefore, states she does not need a follow up ap pointment with Dr. Stringer. Placement issues: Patient plans on discharge home with her father, siblings and boyfriend tomorrow after 72 hour hold expires at 1500. Rationale for continued stay: Relapse plan: Patient has completed a Relapse plan Rationale for TLOA: Discharge status (AMA/other): Discharge plans: Appointments: Patient would like to follow with Greg Esposito for therapy. Late afternoon appointments work best, but there are none available till the end of June. Patient will talk with family and boyfriend to try and arrange a date for an earlier appointment. Anticipated discharge date: 06/10/11 Patient remarks: Patient updated on staffing. Electronically Signed By: PAWEL ANDREWS RN On: 06/09/2011 03:52 pm [facility] Document Id: [id number] Feng Ortiz RMayurN. - 06/09/2011 6:29 AM CDT patient rested/slept all shift. offerred no complaints. Electronically Signed By: FENG ORTIZ RN On: 06/09/2011 06:29 am Source: [employer] Document Id: [id number] Juana Campoverde R.N. - 06/08/2011 9:07 PM CDT Patient has been pleasant and attended groups this evening. Has not offered any other complaints. Does have raised bumps on her left arm but says that they are not itching or burning. She says she will take care of it when I get home. Electronically Signed By: JUANA ARMANDO RN On: 06/08/2011 09:08 pm Source: [employer] Document Id: [id number] Pawel Andrews R.N. - 06/08/2011 2:55 PM CDT Patient noted some small raised bumps to her left forearm. Area is not red and patient denies any itching or burning. Patient states she does have sensitive skin to dyes, perfume and scents. Patient will show area to the psychiatrist. Electronically Signed By: PAWEL ANDREWS RN On: 06/08/2011 02:57 pm Source: [employer] Document Id: [id number] Feng Ortiz R.N. - 06/08/2011 5:02 AM CDT patient has been resting/sleeping all shift. has offerred no complaints. Electronically Signed By: FENG ORTIZ RN On: 06/08/2011 05:03 am Source: [employer] Document Id: [id number] Juana Campoverde R.N. - 06/07/2011 9:20 PM CDT Patient has been pleasant and went to groups this evening. She has also been interacting with otherpatients on the unit. She did receive Tylenol at 1915 for back pain rated a 10/10. Electronically Signed By: JUANA ARMANDO RN On: 06/07/2011 09:23 pm Source: [employer] Document Id: [id number] Juana Campoverde R.N. - 06/07/2011 8:25 PM CDT PRN Response PRN Response Entered On: 06/07/2011 20:25 CDT Performed On: 06/07/2011 20:25 CDT by JUANA ARMANDO RN PRN Medication Effectiveness Evaluation PRN Medication Effective: Yes JUANA ARMANDO RN - 06/07/2011 20:25 CDT Source: [employer] Document Id: [id number] CDT!3 Pawel Andrews R.N. - 06/07/2011 1:46 PM CDT Patient has been pleasant and cooperative. Patient reports she woke up with back pain on 05/25/11 andhas been seen by her primary care provider who reportedly told her it was muscular in nature. Patient did receive prn Motrin 800mg this morning for pain rated 10 out of 10. Patient reports no change inintensity of pain. Patient was offered a hot or cold pack but declined. Patient would like to check with her primary care provider, Dr. Stringer on thursday reguarding pain mgmt. Patient stated she did not want to go back on the nortripyline as patient reported she experienced increase depression after starting this medication. Patient also reports poor sleep with chronic fatigue. Patient plans on discussi ng this concern with the psychiatrist. Electronically Signed By: PAWEL ANDREWS RN On: 06/07/2011 01:55 pm Source: [employer] Document Id: [id number] Pawel Andrews R.N. - 06/07/2011 1:44 PM CDT PRN Response PRN Response Entered On: 06/07/2011 13:44 CDT Performed On: 06/07/2011 13:44 CDT by PAWEL ANDREWS RN PRN Medication Effectiveness Evaluation PRN Medication Effective: No Post Medication Pain Assessment: 10 PAWEL ANDREWS RN - 06/07/2011 13:44 CDT Source: [facility] [employer] Document Id: [id number] CDT!4 Feng Ortiz R.N. - 06/07/2011 6:28 AM CDT patient had a quiet night. denied any complaints. recieved ibuprofen 800 mg in the beginning of theshift for low back pain and she states this was effective. Electronically Signed By: FENG ORTIZ RN On: 06/07/2011 06:29 am [facility] Document Id: [id number] Feng Ortiz RKameron - 06/07/2011 2:00 AM CDT PRN Response PRN Response Entered On: 06/07/2011 6:28 CDT Performed On: 06/07/2011 2:00 CDT by FENG ORTIZ RN PRN Medication Effectiveness Evaluation PRN Medication Effective: Yes FENG ORTIZ RN - 06/07/2011 6:28 CDT [facility] Document Id: [id number] CDT!3 Kota Salinas R.N. - 06/06/2011 5:27 PM CDT staffing specialist appointment This financial underwriter contacted Dr. Desouza's nurse and reviewed that patient had an upcoming appointment for Thursday, was informed that patient has up to 06/14 to get her Depo Provera injection. This information was reviewed with patient and patient plans to not have appointment canceled at this time. Patientreported that she will see her family this evening and work on transportation for when and if she reschedules her appointment for either next Thursday, , or Thursday. Patient reports she will need family to transport her from [facility] for the appointment therefore reported that she will contact the appointment desk Thursday morning prior to her appointment time for rescheduling. Electronically Signed By: KOTA SALINAS RN On: 06/06/2011 05:32 pm Source: [employer] Document Id: [id number] Kota Salinas R.N. - 06/06/2011 3:05 PM CDT PRN Response PRN Response Entered On: 06/06/2011 16:51 CDT Performed On: 06/06/2011 15:05 CDT by KOTA SALINAS RN PRN Medication Effectiveness Evaluation PRN Medication Effective: Yes Post Medication Pain Assessment: 0 KOTA SALINAS RN - 06/06/2011 16:51 CDT Source: [employer] Document Id: [id number] CDT!4 Aura Bhatti R.N. - 06/06/2011 2:42 PM CDT NURSING PT'S MOTHER MARIO WAS CONTACTED-SHE WILL BE BRINGING PT SOME ITEMS THIS EVENING. PT COMPLETED PAIN AND CPTII. PT QUIET/WITHDRAWN. PT HAS BEEN COOPERATIVE. Electronically Signed By: AURA HBATTI RN On: 06/06/2011 02:43 pm Source: [facility] [employer] Document Id: [id number] Feng Ortiz R.N. - 06/06/2011 1:07 AM CDT PRN Response PRN Response Entered On: 06/06/2011 1:07 CDT Performed On: 06/06/2011 1:07 CDT by FENG ORTIZ RN PRN Medication Effectiveness Evaluation PRN Medication Effective: Yes FENG ORTIZ RN - 06/06/2011 1:07 CDT Source: [facility] [employer] Document Id: [id number] CDT!3 Feng Ortiz R.N. - 06/06/2011 12:47 AM CDT patient here upin room upon my coming to speak with her.came from [facility]. mother was here with patient but left. patient is tearful and apprehensive about staying here. reports she is depressed and stressed about job and confused about whether to go back to school. says she has been feeling stressedfor some time but just increasingly depressed since thursday when she started taking a new med for her chronic low back pain. does not with to continue this while here. works for a [employer] in [place] [facility] [employer] [facility] and has been unable to work recently due to the pain. rates it a nine upon admission.reports no problems with her appetite and says this is too good and has trouble sleeping.has trouble falling and staying asleep. no previous hospitalizations. sees dr stringer as her pcp and does not see anyone for psychiatric purposes. smokes 0.5 pack of cigarrettes per day and denies recreational drug or alcohol use. lives with family including her dad, brother, and boyfriend. has been arguring with boyfriend but nothing serious per her report. denies hallucinations and delusion. denies being suicidal or having a plan. signed her request for change to informal status. says she came in voluntarily. Electronically Signed By: FENG ORTIZ RN On: 06/06/2011 01:04 am Source: [employer] Document Id: [id number] Emmanuel Lo R.N. - 06/05/2011 10:32 PM CDT ED Pain Assessment ED Pain Assessment Entered On: 06/05/2011 22:32 CDT Performed On: 06/05/2011 22:32 CDT by EMMANUEL LO RN Pain Assessment Pain Symptoms: Yes EMMANUEL LO RN - 06/05/2011 22:32 CDT Pain Pain Assessment Grid Pain 1 Location: Lower back Intensity: 9 EMMANUEL LO RN - 06/05/2011 22:32 CDT Source: [employer] Document Id: [id number] CDT!8 Emmanule Lo R.N. - 06/05/2011 9:08 PM CDT ED Primary Assessment Document Has Been Updated ED Primary Assessment Entered On: 06/05/2011 21:19 CDT Performed On: 06/05/2011 21:08 CDT by EMMANUEL LO RN Reason For Visit Problems(Active) ADHD - Attention deficit disorder with hyperactivity Name of Problem: ADHD - Attention deficit disorder with hyperactivity ; Recorder: LAUREN STRINGER MD; Confirmation: Confirmed ; Classification: Medical ; Code: 603849 ; Contributor System: [employer] ; Last Updated: 06/03/2011 3:53 CDT ; Life CycleDate: 06/03/2011 ; Life Cycle Status: Active ; Responsible Provider: LAUREN STRINGER MD; Vocabulary: SNOMED CT Pain Neck Name of Problem: Pain Neck ; Onset Date: 07/2009 ; Classification: Medical ; Code: 1231 ; Contributor System: OWA_HPP_SYS ; Last Updated: 08/13/2009 18:00 VISUAL AID EXPERT ; Life Cycle Date: 01/03/2010 ; Life Cycle Status: Active ; Vocabulary: ICD-9-CM Tobacco Abuse Name of Problem: Tobacco Abuse ; Onset Date: 07/2009 ; Classification: Medical ; Code:1231 ; Contributor System: OWA_HPP_SYS ; Last Updated: 08/13/2009 18:00 VISUAL AID EXPERT ; Life Cycle Date: 01/03/2010 ; Life Cycle Status: Active ; Vocabulary: ICD-9-CM Diagnoses(Active) Psychiatric screening exam Date: 06/05/2011 20:50 CDT ; Diagnosis Type: Reason For Visit ; Confirmation: Complaint of ; Classification: Medical ; Clinical Service: Emergency medicine ; Code: PNED ; Probability: 0 ; Diagnosis Code: [id number] Triage Chief Complaint Description: Patient feeling depressed. States that she is suicidal and was going tocut her throat with a paper box maker tonite when someone walked in on her.Mother with patient. Patient has had poor sleeping since 2006. EMMANUEL LO RN - 06/05/2011 21:20 CDT Information Given By: Patient, Mother Accompanied By: Mother Mode of Arrival ED: Private vehicle, Ambulatory Track: Medical EMMANUEL LO RN - 06/05/2011 21:08 CDT Pain Assessment Pain Symptoms: Yes EMMANUEL LO RN - 06/05/2011 21:08 CDT Pain Pain Assessment Grid Pain 1 Location: Lower back Intensity: 9 EMMANUEL LO RN - 06/05/2011 21:08 CDT JENA JENA Level 1: No JENA Level 2: Yes EMMANUEL LO RN - 06/05/2011 21:08 CDT Allergy Allergies (Active) naproxen Estimated Onset Date: Unspecified ; Reactions: ITCHING ; Created By: Contributor_system, AU_HX_SYS; Reaction Status: Active ; Category: Drug ; Substance: naproxen ; Type: Unknown ; Severity: <not entered> ID Screen Travel Within Last 14 Days: No EMMANUEL LO RN - 06/05/2011 21:08 CDT Respiratory Airway: Patent Respirations: Unlabored Respiratory Pattern: Regular EMMANUEL LO RN - 06/05/2011 21:08 CDT Cardiovascular Heart Rhythm: Regular Skin Color: Normal for ethnicity Skin Description: Dry Skin Temperature: Warm EMMANUEL LO RN - 06/05/2011 21:08 CDT Neurological Level of Consciousness: Alert Orientation: Oriented x 3 Characteristics of Speech: Appropriate for age EMMANUEL LO RN - 06/05/2011 21:08 CDT ED Psychosocial Affect/Behavior: Calm, Cooperative, Appropriate Domestic Abuse Concerns: None Behavioral Health Screen/Safety Assmt: Yes EMMANUEL LO RN - 06/05/2011 21:08 CDT Behavioral Health Screen/Safety Assmt Depressed: Yes Hearing Voices: No Thoughts of Harming Self: Yes BH Thoughts: Yes Suicide Attempts: Yes Suicide Attempts: Yes Suicide Plan: No Self-destructive Behaviors: No Thoughts of Harming Others: No Time Placed Under Observation: 21:04 VISUAL AID EXPERT Safety Refused Directions: No Safety Irritability: No Safety Threatening: No Safety Threaten to Harm: No Safety History of Violence: No Safety Aggressive Actions: No Safety Violent: No Behavioral Health Education Provided: Yes Safety Witnessed By: Osmin Lo RN Safety Security Staff: Geoff from security Safety Weapon/Contraband Found: No EMMANUEL LO RN - 06/05/2011 21:08 CDT Gastrointestinal Nutrition ED: Adequate Nutrition ED Freetext: Nothing to eat today. EMMANUEL LO RN - 06/05/2011 21:08 CDT Musculoskeletal Fall Prevention Education Provided: Yes EMMANUEL LO RN - 06/05/2011 21:08 CDT Source: [employer] Document Id: [id number] CDT!3 documented in this encounter ED Notes Erum Valladares M.D. - 06/10/2011 7:11 AM CDT Psychiatric screening exam Patient: EMILIANO LEONE - AU MRN Age: 21 years Sex: Female : 1990 Author: ERUM VALLADARES MD History of Present Illness The patient presents with suicidal ideation. The onset was just prior to arrival. The course/duration of symptoms is constant. Character of symptoms depressed. The degree of symptoms is minimal. Self injury: none. Exacerbating factors consist of none. The relieving factor is none. Risk factors consistof none. Prior episodes: none. Therapy today: none. Associated symptoms: none. Additional history: none. Review of Systems Constitutional symptoms: Negative except as documented in HPI. Skin symptoms: Negative except as documented in HPI. Eye symptoms: Negative except as documented in HPI. ENMT symptoms: Negative except as documented in HPI. Respiratory symptoms: Negative except as documented in HPI. Cardiovascular symptoms: Negative except as documented in HPI. Gastrointestinal symptoms: Negative except as documented in HPI. Genitourinary symptoms: Negative except as documented in HPI. Musculoskeletal symptoms: Negative except as documented in HPI. Neurologic symptoms: Negative except as documented in HPI. Psychiatric symptoms: Negative except as documented in HPI. Endocrine symptoms: Negative except as documented in HPI. Hematologic/Lymphatic symptoms: Negative except as documented in HPI. Allergy/immunologic symptoms: Negative except as documented in HPI. Additional review of systems information:All other systems reviewed and otherwise negative. Health Status Allergies: . No active allergies recorded. Nonallergic Reactions naproxen Medications: . Medication Orders dextroamphetamine-amphetamine (Adderall XR), 30 mg, 1 cap(s), PO, Daily AM ibuprofen (Motrin), 800 mg, 1 tab(s), PO, 3xDay, PRN nicotine (Nicorette), 2 mg, 1 each, PO, q90min, PRN Prescriptions and Home Medications acetaminophen, 1000 mg, PO, 2xDay, 14 day(s), PRN medroxyPROGESTERone (Depo-Provera), 150 mg, IM, Once, Missed last Depo 01/06/11. Gave Depo today and had her schedule for annual exam, 1 mL dextroamphetamine-amphetamine (Adderall XR 20 mg oral capsule, extended release), 1 cap(s), PO, Daily AM, 30 cap(s) dextroamphetamine-amphetamine (Adderall XR 10 mg oral capsule, extended release), 1 cap(s), PO, Daily AM, 30 cap(s) nortriptyline (nortriptyline 10 mg oral capsule), 20 mg, 2 cap(s), PO, Bedtime, 30 cap(s) ibuprofen (ibuprofen 600 mg oral tablet), 600 mg, 1 tab(s), PO, 3xDay, Take with food and 1000mg of acetomenophen, 90 tab(s) cholecalciferol (Vitamin D3 1000 intl units oral tablet), 1,000 IntU, 1 tab(s), PO, Daily, 100 tab(s) Past Medical/ Family/ Social History Medical history: Medical history. Active Pain Neck (723.1): Onset in 2008 at 19 years. Tobacco Abuse (305.1): Onset in 2008 at 19 years. Surgical history: Surgical history. No active procedure history items have been selected or recorded. Family history: Family history. No family history items have been selected or recorded. Physical Examination Vital signs: Vital Signs, 06/10/2011 6:28 CDT Temperature Core 37.0 C Peripheral Pulse Rate 84 /min Systolic Blood Pressure 93 mmHg Diastolic Blood Pressure 52 mmHg 06/09/2011 16:51 CDT Temperature Core 36.4 C LOW Peripheral Pulse Rate 108 /min HI Systolic Blood Pressure 129 mmHg Diastolic Blood Pressure 76 mmHg 06/09/2011 6:35 CDT Temperature Core 36.6 C Peripheral Pulse Rate 95 /min Systolic Blood Pressure 104 mmHg Diastolic Blood Pressure 70 mmHg oxygen saturation. General: Alert Skin: Warm Head: Normocephalic Neck: Supple. trachea midline. no tenderness. no JVD. Eye: Pupils are equal, round and reactive to light Ears, nose, mouth and throat: No pharyngeal erythema or exudate Cardiovascular: Regular rate and rhythm. No murmur. Normal peripheral perfusion. Respiratory: Lungs are clear to auscultation. respirations are non-labored. breath sounds are equal.Symmetrical chest wall expansion. Chest wall: No tenderness. No deformity. Back: Nontender Musculoskeletal: Normal ROM Gastrointestinal: Non distended. Tenderness: mild and right lower quadrant. Guarding: minimal. Rebound: negative. Bowel sounds: normal. Organomegaly: negative. Trauma: negative. Mass: negative. Scars: negative. Signs: none. Genitourinary: No tenderness Neurological: Alert and oriented to person, place, time, and situation. normal coordination observed. Lymphatics: No lymphadenopathy Psychiatric: Cooperative Medical Decision Making Differential Diagnosis:Anxiety, suicide risk. Impression and Plan Diagnosis Suicidal risk (Discharge, Emergency medicine, Medical) Discharge plan Admit Notes: will admit and place on hold for concerns of suicide risk. . Source: [facility] P[employer] Document Id: [id number]} Emmanuel Lo RMayurN. - 06/05/2011 10:31 PM CDT ED Disposition Summary ED Disposition Summary Entered On: 06/05/2011 22:32 CDT Performed On: 06/05/2011 22:31 CDT by EMMANUEL LO RN ED Disposition Summary Accompanied By: Alone Mode of Discharge: Wheelchair Nurse Receiving Report: Irene CROSS - [facility] Date/Time Nurse Received Report: 06/05/2011 22:31 CDT Transporter: Tech, Security Discharge From ED With: Home Med List Patient Status at Discharge from ED: Unchanged EMMANUEL LO RN - 06/05/2011 22:31 CDT Source: [employer] Document Id: [id number] CDT!9 Emmanuel Lo RKameron - 06/05/2011 8:50 PM CDT ED Triage Assessment ED Triage Assessment Entered On: 06/05/2011 20:52 CDT Performed On: 06/05/2011 20:50 CDT by EMMANUEL LO RN Reason For Visit Problems(Active) ADHD - Attention deficit disorder with hyperactivity Name of Problem: ADHD - Attention deficit disorder with hyperactivity ; Recorder: LAUREN STRINGER MD; Confirmation: Confirmed ; Classification: Medical ; Code: 137062 ; Contributor System: [employer] ; Last Updated: 06/03/2011 3:53 CDT ; Life CycleDate: 06/03/2011 ; Life Cycle Status: Active ; Responsible Provider: LAUREN STRINGER MD; Vocabulary: SNOMED CT Pain Neck Name of Problem: Pain Neck ; Onset Date: 07/2009 ; Classification: Medical ; Code: 1231 ; Contributor System: OWA_HPP_SYS ; Last Updated: 08/13/2009 18:00 VISUAL AID EXPERT ; Life Cycle Date: 01/03/2010 ; Life Cycle Status: Active ; Vocabulary: ICD-9-CM Tobacco Abuse Name of Problem: Tobacco Abuse ; Onset Date: 07/2009 ; Classification: Medical ; Code:1231 ; Contributor System: [employer]HPP[employer] ; Last Updated: 08/13/2009 18:00 VISUAL AID EXPERT ; Life Cycle Date: 01/03/2010 ; Life Cycle Status: Active ; Vocabulary: ICD-9-CM Diagnoses(Active) Psychiatric screening exam Date: 06/05/2011 20:50 CDT ; Diagnosis Type: Reason For Visit ; Confirmation: Complaint of ; Classification: Medical ; Clinical Service: Emergency medicine ; Code: PNED ; Probability: 0 ; Diagnosis Code: [id number] Triage Chief Complaint Description: Patient depressed and feeling suicidal. Wanted to cut her trhoat tonitewith a boxcutter. Mode of Arrival ED: Private vehicle, Ambulatory Track: Medical EMMANUEL LO RN - 06/05/2011 20:50 CDT Pain Assessment Pain Symptoms: No EMMANUEL LO RN - 06/05/2011 20:50 CDT EJNA JENA Level 1: No JENA Level 2: Yes EMMANUEL LO RN - 06/05/2011 20:50 CDT DCP GENERIC CODE Tracking Acuity: 2 -Emergent Tracking Group: [facility]/ EMMANUEL LO RN - 06/05/2011 20:50 CDT Allergy Allergies (Active) naproxen Estimated Onset Date: Unspecified ; Reactions: ITCHING ; Created By: Contributor_systemYARY; Reaction Status: Active ; Category: Drug ; Substance: naproxen ; Type: Unknown ; Severity: <not entered> ID Screen Travel Within Last 14 Days: No EMMANUEL LO RN - 06/05/2011 20:50 CDT Source: [employer] Document Id: [id number] CDT!15 documented in this encounter Miscellaneous Notes Restricted notes were excluded Miscellaneous - Juana Campoverde R.N. - 06/10/2011 5:05 PM CDT Inpatient Patient Education The following Patient Education Materials have been given to the patient: Patient Education Materials: No instructions were provided. No instructions were provided. Source: [employer] Document Id: [id number] Electronically signed by Halle [facility] Insurance Policy Issue Clerk [id number] at 03/01/2017 2:01 PM CDT Miscellaneous - Juana Campoverde R.N. - 06/10/2011 4:16 PM CDT Adult Ongoing Assessment Adult Ongoing Assessment Entered On: 06/10/2011 16:18 CDT Performed On: 06/10/2011 16:16 CDT by JUANA ARMANDO RN Psycho/Emotional Affect/Behavior: Cooperative, Appropriate Pain Symptoms: No JUANA ARMANDO RN - 06/10/2011 16:16 CDT Coping Grid Identifies effective strategies: Yes Uses effective strategies: Yes Reports increase in psychological comfort: Yes Indicates sense of control: Yes Stressors perceived within control: Yes Stable mood with appropriate affect: Yes Behaviors indicate use of coping mechanism: Yes Family supportive and involved in care: Yes Values/Beliefs incorporated appropriately: Yes JUANA ARMANDO RN - 06/10/2011 16:16 CDT Safety Grid Vision, Hearing, Mobility Adequate to Meet Safety Needs: Yes JUANA ARMANDO RN - 06/10/2011 16:16 CDT Psycho/Emotional Detailed Assessment: Yes JUANA ARMANDO RN - 06/10/2011 16:16 CDT Psycho/Emotional Detailed Hallucinations Present: None Orientation: Oriented x 3, Appropriate for age Participates in Age-specific Activities: Yes Cognition: Adequate concentration Behavior & General Appearance: Appropriate for situation Behavior/Interaction with Peers/Staff Appropriate: Yes JUANA ARMANDO RN - 06/10/2011 16:16 CDT Suicide Risk Re-Assessment Ongoing Behaviors/Threats of Harm to Self: No Behaviors/Threats of Harm to Others: No Do you have a plan for suicide?: No JUANA ARMANDO RN - 06/10/2011 16:16 CDT Nutrition Eating Difficulties: None Appetite: Excellent Nutrition Risk Factors by History Adult: None JUANA ARMANDO RN - 06/10/2011 16:16 CDT Hendrich II Fall Risk Confusion/Disorientation Hendrich: No Depression Fall Risk Hendrich: No Altered Elimination Fall Risk Hendrich: No Dizziness/Vertigo Fall Risk Hendrich: No Gender, Male Fall Risk Hendrich: No Prescribed Antiepileptics Hendrich: No Prescribed Benzodiazepines Hendrich: No Rising From Chair Fall Risk Hendrich: Able to rise in a single movement, no loss of balance with steps Fall Risk Score Hendrich II: 0 JUANA ARMANDO RN - 06/10/2011 16:16 CDT Education General Patient Education [employer] Topics: Other: Take 5 (Comment: Introduced myself to patient. [JUANA ARMANDO RN - 06/10/2011 16:16CDT] ) Individuals Taught: Patient Barriers to Learning: None evident Teaching Method: Explanation Teaching Evaluation: Verbalizes understanding JUANA ARMANDO RN - 06/10/2011 16:16 CDT Source: [facility] [employer] Document Id: [id number] CDT!50 Barbara Lucas R.N. - 06/10/2011 10:30 AM CDT Adult Activities of Daily Living Adult Activities of Daily Living Entered On: 06/10/2011 10:31 CDT Performed On: 06/10/2011 10:30 CDT by BARBARA SWAIN RN ADLs I Activity Status ADL: Up ad bebo Ambulation Patient Effort: Good BARBARA SWAIN RN - 06/10/2011 10:30 CDT ADLs II Hygiene Assistance Grid Hair Care: Independent Oral Care: Independent Shower: Independent BARBARA SWAIN RN - 06/10/2011 10:30 CDT Elimination Assistance Offered Q2H: Independent Standard Safety: ID band check, Non-Slip footwear, Rounds every 1 hour BARBARA SWAIN RN - 06/10/2011 10:30 CDT ADLs Adult Nutrition Feeding Assistance: Independent Breakfast: 100% BARBARA SWAIN RN - 06/10/2011 10:30 CDT [facility] Document Id: [id number] CDT!14 Barbara Lucas R.N. - 06/10/2011 10:29 AM CDT Adult Ongoing Assessment Adult Ongoing Assessment Entered On: 06/10/2011 10:30 CDT Performed On: 06/10/2011 10:29 CDT by BARBARA SWAIN RN Respiratory Respiratory Patient Stated Symptoms: None Respiratory Pattern: Regular BARBARA SWAIN RN - 06/10/2011 10:29 CDT Psycho/Emotional Affect/Behavior: Cooperative, Anxious Pain Symptoms: No Feels Rested: Yes BARBARA SWAIN RN - 06/10/2011 10:29 CDT Coping Grid Identifies effective strategies: Yes Uses effective strategies: No (Comment: improved [BARBARA SWAIN RN - 06/10/2011 10:29 CDT] ) Reports increase in psychological comfort: Yes Indicates sense of control: Yes Stressors perceived within control: Yes Stable mood with appropriate affect: Yes (Comment: imroved [BARBARA SWAIN RN - 06/10/2011 10:29 CDT] ) Behaviors indicate use of coping mechanism: No Family supportive and involved in care: Yes Values/Beliefs incorporated appropriately: Yes BARBARA SWAIN RN - 06/10/2011 10:29 CDT Safety Grid Vision, Hearing, Mobility Adequate to Meet Safety Needs: Yes BARBARA SWAIN RN - 06/10/2011 10:29 CDT Stephan Sensory Perception Stephan: No impairment Moisture Stephan: Rarely moist Activity Stephan: Walks frequently Mobility Stephan: No limitations Nutrition Stephan: Adequate BARBARA SWAIN RN - 06/10/2011 10:29 CDT Hendrich II Fall Risk Confusion/Disorientation Hendrich: No Depression Fall Risk Hendrich: No Altered Elimination Fall Risk Hendrich: No Dizziness/Vertigo Fall Risk Hendrich: No Gender, Male Fall Risk Hendrich: No Prescribed Antiepileptics Hendrich: No Prescribed Benzodiazepines Hendrich: No Rising From Chair Fall Risk Hendrich: Able to rise in a single movement, no loss of balance with steps Fall Risk Score Hendrich II: 0 BARBARA SWAIN RN - 06/10/2011 10:29 CDT Source: [employer] Document Id: [id number] CDT!36 Miscellaneous - Barbara Swain RKameron - 06/10/2011 9:06 AM CDT Inpatient Patient Education The following Patient Education Materials have been given to the patient: Patient Education Materials: No instructions were provided. No instructions were provided. Source: [facility] [employer] Document Id: [id number] Electronically signed by Conversion, [facility] Insurance Policy Issue Clerk [id number] at 03/01/2017 2:01 PM CDT Miscellaneous - Barbara Swain R.N. - 06/10/2011 9:02 AM CDT Inpatient Patient Education The following Patient Education Materials have been given to the patient: Patient Education Materials: No instructions were provided. No instructions were provided. Source: [employer] Document Id: [id number] Electronically signed by Conversion, [facility] Insurance Policy Issue Clerk [id number] at 03/01/2017 2:01 PM CDT Miscellaneous - Jerome Bernal M.D. - 06/10/2011 9:00 AM CDT Inpatient Patient Education The following Patient Education Materials have been given to the patient: Patient Education Materials: No instructions were provided. No instructions were provided. Source: [employer] Document Id: [id number] Electronically signed by Conversion, [facility] Insurance Policy Issue Clerk [id number] at 03/01/2017 2:01 PM CDT Patricia - Kaylene Louis R.N. - 06/10/2011 12:56 AM CDT Adult Activities of Daily Living Adult Activities of Daily Living Entered On: 06/10/2011 0:56 CDT Performed On: 06/10/2011 0:56 CDT by KAYLENE LOUIS RN ADLs I Activity Status ADL: Up ad bebo Activity Assistance: Independent KAYLENE LOUIS RN - 06/10/2011 0:56 CDT ADLs II Standard Safety: Bed in low position, Rounds every 1 hour KAYLENE LOUIS RN - 06/10/2011 0:56 CDT Source: [facility] [employer] Document Id: [id number] CDT!6 Patricia - Kaylene Louis R.N. - 06/10/2011 12:55 AM CDT Adult Ongoing Assessment Adult Ongoing Assessment Entered On: 06/10/2011 0:56 CDT Performed On: 06/10/2011 0:55 CDT by KAYLENE LOUIS RN Respiratory Respiratory Patient Stated Symptoms: None Respirations: Unlabored KAYLENE LOUIS RN - 06/10/2011 0:55 CDT Psycho/Emotional Pain Symptoms: No Psycho/Emotional Detailed Assessment: Yes KAYLENE LOUIS RN - 06/10/2011 4:33 CDT Affect/Behavior: Other: asleep KAYLENE LOUIS RN - 06/10/2011 0:55 CDT Psycho/Emotional Detailed Sleep Assessment: Slept well 6 or more consecutive hours Hours of sleep, uninterrupted: 7 KAYLENE LOUIS RN - 06/10/2011 4:33 CDT Hendrich II Fall Risk Confusion/Disorientation Hendrich: No Depression Fall Risk Hendrich: No Altered Elimination Fall Risk Hendrich: No Dizziness/Vertigo Fall Risk Hendrich: No Gender, Male Fall Risk Hendrich: No Prescribed Antiepileptics Hendrich: No Prescribed Benzodiazepines Hendrich: No Rising From Chair Fall Risk Hendrich: Able to rise in a single movement, no loss of balance with steps Fall Risk Score Hendrich II: 0 KAYLENE LOUIS RN - 06/10/2011 0:55 CDT Source: [employer] Document Id: [id number] CDT!7 Patricia - Juana Campoverde R.N. - 06/09/2011 5:32 PM CDT Adult Activities of Daily Living Adult Activities of Daily Living Entered On: 06/09/2011 17:32 CDT Performed On: 06/09/2011 17:32 CDT by JUANA ARMANDO RN ADLs I Activity Status ADL: Up ad bebo Activity Assistance: Independent Assistive Device: None Ambulation Patient Effort: Good JUANA ARMANDO RN - 06/09/2011 17:32 CDT ADLs II Hygiene Assistance Grid Oral Care: Independent JUANA ARMANDO RN - 06/09/2011 17:32 CDT Elimination Assistance Offered Q2H: Independent Standard Safety: ID band check, Non-Slip footwear, Rounds every 1 hour JUANA ARMANDO RN - 06/09/2011 17:32 CDT ADLs Adult Nutrition Dinner: 100% Evening Snack: 100% JUANA ARMANDO RN - 06/09/2011 19:32 CDT Source: [facility] [employer] Document Id: [id number] CDT!14 Miscellaneous - Juana Campoverde R.N. - 06/09/2011 5:29 PM CDT Adult Ongoing Assessment Adult Ongoing Assessment Entered On: 06/09/2011 17:32 CDT Performed On: 06/09/2011 17:29 CDT by JUANA ARMANDO RN Psycho/Emotional Affect/Behavior: Cooperative, Appropriate Pain Symptoms: No JUANA ARMANDO RN - 06/09/2011 17:29 CDT Coping Grid Identifies effective strategies: Yes Uses effective strategies: Yes Reports increase in psychological comfort: Yes Indicates sense of control: Yes Stressors perceived within control: Yes Stable mood with appropriate affect: Yes Behaviors indicate use of coping mechanism: Yes Family supportive and involved in care: Yes Values/Beliefs incorporated appropriately: Yes JUANA ARMANDO RN - 06/09/2011 17:29 CDT Safety Grid Vision, Hearing, Mobility Adequate to Meet Safety Needs: Yes JUANA ARMANDO RN - 06/09/2011 17:29 CDT Psycho/Emotional Detailed Assessment: Yes JUANA ARMANDO RN - 06/09/2011 17:29 CDT Psycho/Emotional Detailed Hallucinations Present: None Orientation: Oriented x 3, Appropriate for age Participates in Age-specific Activities: Yes Cognition: Adequate concentration Behavior & General Appearance: Appropriate for situation Behavior/Interaction with Peers/Staff Appropriate: Yes Thought Process Intact: Yes JUANA ARMANDO RN - 06/09/2011 17:29 CDT Suicide Risk Re-Assessment Ongoing Behaviors/Threats of Harm to Self: No Behaviors/Threats of Harm to Others: No Do you have a plan for suicide?: No JUANA ARMANDO RN - 06/09/2011 17:29 CDT Nutrition Eating Difficulties: None Appetite: Excellent Nutrition Risk Factors by History Adult: None JUANA ARMANDO RN - 06/09/2011 17:29 CDT Hendrich II Fall Risk Confusion/Disorientation Hendrich: No Depression Fall Risk Hendrich: No Altered Elimination Fall Risk Hendrich: No Dizziness/Vertigo Fall Risk Hendrich: No Gender, Male Fall Risk Hendrich: No Prescribed Antiepileptics Hendrich: No Prescribed Benzodiazepines Hendrich: No Rising From Chair Fall Risk Hendrich: Able to rise in a single movement, no loss of balance with steps Fall Risk Score Hendrich II: 0 JUANA ARMANDO RN - 06/09/2011 17:29 CDT Education General Patient Education [employer] Topics: Other: Take 5 (Comment: Introduced myself to patient. [JUANA ARMANDO RN - 06/09/2011 17:29CDT] ) Individuals Taught: Patient Barriers to Learning: None evident Teaching Method: Explanation Teaching Evaluation: Verbalizes understanding JUANA ARMANDO RN - 06/09/2011 17:29 CDT Source: [facility] [employer] Document Id: [id number] CDT!51 Patricia - Jerome Bernal M.D. - 06/09/2011 10:54 AM CDT Inpatient Patient Education The following Patient Education Materials have been given to the patient: Patient Education Materials: No instructions were provided. No instructions were provided. [facility] Document Id: [id number] Electronically signed by [facility]alle [facility] Policy Issue Clerk [id number] at 03/01/2017 2:01 PM CDT Patricia - Pawel Andrews R.N. - 06/09/2011 9:16 AM CDT Adult Ongoing Assessment Adult Ongoing Assessment Entered On: 06/09/2011 9:22 CDT Performed On: 06/09/2011 9:16 CDT by PAWEL ANDREWS RN Psycho/Emotional Affect/Behavior: Cooperative, Appropriate Pain Symptoms: Yes Feels Rested: No PAWEL ANDREWS RN - 06/09/2011 9:16 CDT Coping Grid Identifies effective strategies: Yes Uses effective strategies: Yes Reports increase in psychological comfort: Yes Indicates sense of control: Yes Stressors perceived within control: Yes Stable mood with appropriate affect: Yes Behaviors indicate use of coping mechanism: Yes Family supportive and involved in care: Yes Values/Beliefs incorporated appropriately: Yes PAWEL ANDREWS RN - 06/09/2011 9:16 CDT Safety Grid Vision, Hearing, Mobility Adequate to Meet Safety Needs: Yes PAWEL ANDREWS RN - 06/09/2011 9:16 CDT Psycho/Emotional Detailed Assessment: Yes PAWEL ANDREWS RN - 06/09/2011 9:16 CDT Psycho/Emotional Detailed Hallucinations Present: None Orientation: Oriented x 3 Participates in Age-specific Activities: Yes Cognition: Adequate concentration, Judgement appropriate, Motivated for treatment, Cooperative with 1:1 Behavior & General Appearance: Appropriate for situation, Social with peers and staff, interactsappropriately, ADLs self-initiated Behavior/Interaction with Peers/Staff Appropriate: Yes Sleep Assessment: Slept well 6 or more consecutive hours Thought Process Intact: Yes PAWEL ANDREWS RN - 06/09/2011 9:16 CDT Suicide Risk Re-Assessment Ongoing Behaviors/Threats of Harm to Self: No Behaviors/Threats of Harm to Others: No Do you have a plan for suicide?: No PAWEL ANDREWS RN - 06/09/2011 9:16 CDT Pain Pain Assessment Grid Pain 1 Location: Lower back Laterality: Bilateral Intensity: 10 Time Pattern: Chronic Onset: Gradual Pain Radiation: No Aggravating Factors: Movement Alleviating Factors: Repositioning, Rest Interventions: notified, Repositioning, Rest PAWEL ANDREWS RN - 06/09/2011 9:16 CDT Effects of Pain Grid Appetite: None Concentration: Mild Daily Life: Mild Emotions: Mild Relationships: Mild Sleep: Mild Work/School: Mild PAWEL ANDREWS RN - 06/09/2011 9:16 CDT Nutrition Eating Difficulties: None Appetite: Excellent PAWEL ANDREWS RN - 06/09/2011 9:16 CDT Stephan Sensory Perception Stephan: No impairment Moisture Stephan: Rarely moist Activity Stephan: Walks frequently Mobility Stephan: Slightly limited Nutrition Stephan: Excellent Friction and Shear Stephan: No apparent problem Stephan Score: 22 PAWEL ANDREWS RN - 06/09/2011 9:16 CDT Hendrich II Fall Risk Confusion/Disorientation Hendrich: No Depression Fall Risk Hendrich: No Altered Elimination Fall Risk Hendrich: No Dizziness/Vertigo Fall Risk Hendrich: No Gender, Male Fall Risk Hendrich: No Prescribed Antiepileptics Hendrich: No Prescribed Benzodiazepines Hendrich: No Rising From Chair Fall Risk Hendrich: Able to rise in a single movement, no loss of balance with steps Fall Risk Score Hendrich II: 0 PAWEL ANDREWS RN - 06/09/2011 9:16 CDT Education General Patient Education [employer] Topics: Other: Nursing Take Five Individuals Taught: Patient Barriers to Learning: None evident Teaching Method: Explanation Teaching Evaluation: Verbalizes understanding Comments (Comment: Patient had her Depo injection this morning on the [facility] unit. [PAWEL ANDREWS - 06/09/2011 9:16 CDT] ) PAWEL ANDREWS RN - 06/09/2011 9:16 CDT [facility] Document Id: [id number] CDT!80 Miscellaneous - Pawel Andrews RMayurN. - 06/09/2011 9:15 AM CDT Adult Activities of Daily Living Adult Activities of Daily Living Entered On: 06/09/2011 9:16 CDT Performed On: 06/09/2011 9:15 CDT by PAWEL ANDREWS RN ADLs I Activity Status ADL: Up ad bebo Activity Assistance: Independent Positioning/Pressure Reducing Devices: Pillow Ambulation Patient Effort: Good PAWEL ANDREWS RN - 06/09/2011 9:15 CDT ADLs II Hygiene Assistance Grid Foot Care: Independent Hair Care: Independent Oral Care: Independent Мария Care: Independent Shower: Independent PAWEL ANDREWS RN - 06/09/2011 9:15 CDT Elimination Assistance Offered Q2H: Independent Standard Safety: Bed alarm ON, ID band check, Night light, Non-Slip footwear, Rounds every 1 hour PAWEL ANDREWS RN - 06/09/2011 9:15 CDT ADLs Adult Nutrition Feeding Assistance: Independent Breakfast: 100% PAWEL ANDREWS RN - 06/09/2011 9:15 CDT Source: [employer] Document Id: [id number] CDT!18 Feng Neville RMayurNMayur - 06/09/2011 12:49 AM CDT Adult Activities of Daily Living Adult Activities of Daily Living Entered On: 06/09/2011 0:49 CDT Performed On: 06/09/2011 0:49 CDT by FENG ORTIZ RN ADLs I Activity Status ADL: Up ad bebo Activity Assistance: Independent Assistive Device: None FENG ORTIZ RN - 06/09/2011 0:49 CDT ADLs II Standard Safety: ID band check, Rounds every 1 hour FENG ORTIZ RN - 06/09/2011 0:49 CDT ADLs Adult Nutrition Feeding Assistance: Independent FENG ORTIZ RN - 06/09/2011 0:49 CDT Source: [employer] Document Id: [id number] CDT!9 Feng Neville RMayurNMayur - 06/09/2011 12:48 AM CDT Adult Ongoing Assessment Adult Ongoing Assessment Entered On: 06/09/2011 0:48 CDT Performed On: 06/09/2011 0:48 CDT by FENG ORTIZ RN Psycho/Emotional Affect/Behavior: Other: RESTING/SLEEPING Pain Symptoms: No Psycho/Emotional Detailed Assessment: Yes FENG ORTIZ RN - 06/09/2011 0:48 CDT Psycho/Emotional Detailed Sleep Assessment: Slept well 6 or more consecutive hours Hours of sleep, uninterrupted: 7 FENG ORTIZ RN - 06/09/2011 6:29 CDT Hendrich II Fall Risk Confusion/Disorientation Hendrich: No Depression Fall Risk Hendrich: No Altered Elimination Fall Risk Hendrich: No Dizziness/Vertigo Fall Risk Hendrich: No Gender, Male Fall Risk Hendrich: No Prescribed Antiepileptics Hendrich: No Prescribed Benzodiazepines Hendrich: No Rising From Chair Fall Risk Hendrich: Able to rise in a single movement, no loss of balance with steps Fall Risk Score Hendrich II: 0 FENG ORTIZ RN - 06/09/2011 0:48 CDT Source: [employer] Document Id: [id number] CDT!4 Miscellaneous - Juana Campoverde R.N. - 06/08/2011 4:14 PM CDT Adult Ongoing Assessment Adult Ongoing Assessment Entered On: 06/08/2011 16:16 CDT Performed On: 06/08/2011 16:14 CDT by JUANA ARMANDO RN Psycho/Emotional Affect/Behavior: Calm, Cooperative, Appropriate Pain Symptoms: No JUANA ARMANDO RN - 06/08/2011 16:14 CDT Coping Grid Identifies effective strategies: Yes Uses effective strategies: Yes Reports increase in psychological comfort: Yes Indicates sense of control: Yes Stressors perceived within control: Yes Stable mood with appropriate affect: No Behaviors indicate use of coping mechanism: No Family supportive and involved in care: Yes Values/Beliefs incorporated appropriately: Yes JUANA ARMANDO RN - 06/08/2011 16:14 CDT Safety Grid Vision, Hearing, Mobility Adequate to Meet Safety Needs: Yes JUANA ARMANDO RN - 06/08/2011 16:14 CDT Psycho/Emotional Detailed Assessment: Yes JUANA ARMANDO RN - 06/08/2011 16:14 CDT Psycho/Emotional Detailed Hallucinations Present: None Orientation: Oriented x 3, Appropriate for age Participates in Age-specific Activities: Yes Cognition: Adequate concentration Behavior & General Appearance: Appropriate for situation Behavior/Interaction with Peers/Staff Appropriate: Yes Thought Process Intact: Yes JUANA ARMANDO RN - 06/08/2011 16:14 CDT Suicide Risk Re-Assessment Ongoing Behaviors/Threats of Harm to Self: No Behaviors/Threats of Harm to Others: No Do you have a plan for suicide?: No JUANA ARMANDO RN - 06/08/2011 16:14 CDT Nutrition Eating Difficulties: None Appetite: Excellent Nutrition Risk Factors by History Adult: None JUANA ARMANDO RN - 06/08/2011 16:14 CDT Hendrich II Fall Risk Confusion/Disorientation Hendrich: No Depression Fall Risk Hendrich: Yes Altered Elimination Fall Risk Hendrich: No Dizziness/Vertigo Fall Risk Hendrich: No Gender, Male Fall Risk Hendrich: No Prescribed Antiepileptics Hendrich: No Prescribed Benzodiazepines Hendrich: No Rising From Chair Fall Risk Hendrich: Able to rise in a single movement, no loss of balance with steps Fall Risk Score Hendrich II: 2 JUANA ARMANDO RN - 06/08/2011 16:14 CDT Education General Patient Education [employer] Topics: Other: take 5 (Comment: introduced myself to patient. [JUANA ARMANDO RN - 06/08/2011 16:14CDT] ) Individuals Taught: Patient Barriers to Learning: None evident Teaching Method: Explanation Teaching Evaluation: Verbalizes understanding JUANA ARMANDO RN - 06/08/2011 16:14 CDT [facility] Document Id: [id number] CDT!51 Miscellaneous - Juana Campoverde R.N. - 06/08/2011 4:14 PM CDT Adult Activities of Daily Living Adult Activities of Daily Living Entered On: 06/08/2011 16:14 CDT Performed On: 06/08/2011 16:14 CDT by JUANA ARMANDO RN ADLs I Activity Status ADL: Up ad bebo Activity Assistance: Independent Assistive Device: None Ambulation Patient Effort: Good JUANA ARMANDO RN - 06/08/2011 16:14 CDT ADLs II Hygiene Assistance Grid Oral Care: Independent JUANA ARMANDO RN - 06/08/2011 16:14 CDT Elimination Assistance Offered Q2H: Independent Standard Safety: ID band check, Non-Slip footwear, Rounds every 1 hour JUANA ARMANDO RN - 06/08/2011 16:14 CDT ADLs Adult Nutrition Dinner: 100% Evening Snack: 100% JUANA ARMANDO RN - 06/08/2011 19:22 CDT Source: [facility] [employer] Document Id: [id number] CDT!14 Miscellaneous - Pawel Andrews R.N. - 06/08/2011 10:05 AM CDT Adult Ongoing Assessment Adult Ongoing Assessment Entered On: 06/08/2011 10:09 CDT Performed On: 06/08/2011 10:05 CDT by PAWEL ANDREWS RN Psycho/Emotional Affect/Behavior: Calm, Cooperative, Appropriate, Anxious Pain Symptoms: Yes PAWEL ANDREWS RN - 06/08/2011 10:05 CDT Coping Grid Identifies effective strategies: Yes Uses effective strategies: Yes Reports increase in psychological comfort: Yes Indicates sense of control: Yes Stressors perceived within control: Yes Stable mood with appropriate affect: Yes Behaviors indicate use of coping mechanism: Yes Family supportive and involved in care: Yes Values/Beliefs incorporated appropriately: Yes PAWEL ANDREWS RN - 06/08/2011 10:05 CDT Safety Grid Vision, Hearing, Mobility Adequate to Meet Safety Needs: Yes PAWEL ANDREWS RN - 06/08/2011 10:05 CDT Psycho/Emotional Detailed Assessment: Yes PAWEL ANDREWS RN - 06/08/2011 10:05 CDT Psycho/Emotional Detailed Hallucinations Present: None Orientation: Oriented x 3, Appropriate for age, Identifies self Participates in Age-specific Activities: Yes Cognition: Adequate concentration, Judgement appropriate, Motivated for treatment, Cooperative with 1:1 Behavior & General Appearance: Appropriate for situation, Social with peers and staff, interactsappropriately, ADLs self-initiated, No change in sleep, interest, energy level, appetite Behavior/Interaction with Peers/Staff Appropriate: Yes Sleep Assessment: Slept well 6 or more consecutive hours Thought Process Intact: Yes PAWEL ANDREWS RN - 06/08/2011 10:05 CDT Suicide Risk Re-Assessment Ongoing Behaviors/Threats of Harm to Self: No Behaviors/Threats of Harm to Others: No Do you have a plan for suicide?: No PAWEL ANDREWS RN - 06/08/2011 10:05 CDT Pain Pain Assessment Grid Pain 1 Location: Lower back Laterality: Bilateral Intensity: 10 Time Pattern: Chronic Quality: Aching Aggravating Factors: Movement Alleviating Factors: Medication, Repositioning, Rest Associated Symptoms: None Interventions: MD notified, Medications, Repositioning, Rest PAWEL ANDREWS RN - 06/08/2011 10:05 CDT Effects of Pain Grid Appetite: None Concentration: Mild Daily Life: Mild Emotions: Mild Relationships: Mild Sleep: Mild Work/School: Mild PAWEL ANDREWS RN - 06/08/2011 10:05 CDT Nutrition Eating Difficulties: None Appetite: Excellent PAWEL ANDREWS RN - 06/08/2011 10:05 CDT Stephan Sensory Perception Stephan: No impairment Moisture Stephan: Rarely moist Activity Stephan: Walks frequently Mobility Stephan: No limitations Nutrition Stephan: Excellent Friction and Shear Stephan: No apparent problem Stephan Score: 23 PAWEL ANDREWS RN - 06/08/2011 10:05 CDT Hendrich II Fall Risk Confusion/Disorientation Hendrich: No Depression Fall Risk Hendrich: No Altered Elimination Fall Risk Hendrich: No Dizziness/Vertigo Fall Risk Hendrich: No Gender, Male Fall Risk Hendrich: No Prescribed Antiepileptics Hendrich: No Prescribed Benzodiazepines Hendrich: No Rising From Chair Fall Risk Hendrich: Able to rise in a single movement, no loss of balance with steps Fall Risk Score Hendrich II: 0 PAWEL ANDREWS RN - 06/08/2011 10:05 CDT Education General Patient Education [employer] Topics: Other: Nursing Take Five Individuals Taught: Patient Barriers to Learning: None evident Teaching Method: Explanation Teaching Evaluation: Verbalizes understanding Comments (Comment: Patient reports she slept well last night with the melatonin. [PAWEL ANDREWS RN - 06/08/2011 10:05 CDT] ) PAWEL ANDREWS RN - 06/08/2011 10:05 CDT Source: [employer] Document Id: [id number] CDT!79 Patricia - Pawel Andrews R.N. - 06/08/2011 10:04 AM CDT Adult Activities of Daily Living Adult Activities of Daily Living Entered On: 06/08/2011 10:05 CDT Performed On: 06/08/2011 10:04 CDT by PAWEL ANDREWS RN ADLs I Activity Status ADL: Up ad bebo Activity Assistance: Independent Positioning/Pressure Reducing Devices: Pillow Ambulation Patient Effort: Good PAWEL ANDREWS RN - 06/08/2011 10:04 CDT ADLs II Hygiene Assistance Grid Foot Care: Independent Hair Care: Independent Oral Care: Independent Мария Care: Independent Shower: Independent PAWEL ANDREWS RN - 06/08/2011 10:04 CDT Elimination Assistance Offered Q2H: Independent Standard Safety: Bed in low position, ID band check, Night light, Non-Slip footwear, Rounds every 1 hour PAWEL ANDREWS RN - 06/08/2011 10:04 CDT ADLs Adult Nutrition Feeding Assistance: Independent Breakfast: 100% PAWEL ANDREWS RN - 06/08/2011 10:04 CDT Source: [employer] Document Id: [id number] CDT!18 Feng Neville RKameron - 06/08/2011 5:03 AM CDT Adult Activities of Daily Living Adult Activities of Daily Living Entered On: 06/08/2011 5:03 CDT Performed On: 06/08/2011 5:03 CDT by FENG ORTIZ RN ADLs I Activity Status ADL: Up ad bebo Activity Assistance: Independent Assistive Device: None FENG ORTIZ RN - 06/08/2011 5:03 CDT ADLs II Standard Safety: ID band check, Rounds every 1 hour FENG ORTIZ RN - 06/08/2011 5:03 CDT ADLs Adult Nutrition Feeding Assistance: Independent FENG ORTIZ RN - 06/08/2011 5:03 CDT Source: [employer] Document Id: [id number] CDT!9 Patricia - Feng Ortiz RKameron - 06/08/2011 5:03 AM CDT Adult Ongoing Assessment Adult Ongoing Assessment Entered On: 06/08/2011 5:04 CDT Performed On: 06/08/2011 5:03 CDT by FENG ORTIZ RN Psycho/Emotional Affect/Behavior: Other: RESTING/SLEEPING Pain Symptoms: No Psycho/Emotional Detailed Assessment: Yes FENG ORTIZ RN - 06/08/2011 5:03 CDT Psycho/Emotional Detailed Sleep Assessment: Slept well 6 or more consecutive hours Hours of sleep, uninterrupted: 7 FENG ORTIZ RN - 06/08/2011 5:04 CDT Hendrich II Fall Risk Confusion/Disorientation Hendrich: No Depression Fall Risk Hendrich: No Altered Elimination Fall Risk Hendrich: No Dizziness/Vertigo Fall Risk Hendrich: No Gender, Male Fall Risk Hendrich: No Prescribed Antiepileptics Hendrich: No Prescribed Benzodiazepines Hendrich: No Rising From Chair Fall Risk Hendrich: Able to rise in a single movement, no loss of balance with steps Fall Risk Score Hendrich II: 0 FENG ORTIZ RN - 06/08/2011 5:03 CDT Source: [employer] Document Id: [id number] CDT!4 Patricia - Juana Campoverde RKmaeron - 06/07/2011 4:04 PM CDT Adult Activities of Daily Living Adult Activities of Daily Living Entered On: 06/07/2011 16:05 CDT Performed On: 06/07/2011 16:04 CDT by JUANA ARMANDO RN ADLs I Activity Status ADL: Ambulating in santos, Up ad bebo Activity Assistance: Independent Assistive Device: None Ambulation Patient Effort: Good JUANA ARMANDO RN - 06/07/2011 16:04 CDT ADLs II Hygiene Assistance Grid Oral Care: Independent JUANA ARMANDO RN - 06/07/2011 16:04 CDT Elimination Assistance Offered Q2H: Independent Standard Safety: ID band check, Non-Slip footwear, Rounds every 1 hour JUANA ARMANDO RN - 06/07/2011 16:04 CDT ADLs Adult Nutrition Dinner: 100% Evening Snack: 100% JUANA ARMANDO RN - 06/07/2011 20:24 CDT Source: [employer] Document Id: [id number] CDT!14 Miscellaneous - Juana Campoverde R.N. - 06/07/2011 3:52 PM CDT Adult Ongoing Assessment Adult Ongoing Assessment Entered On: 06/07/2011 15:55 CDT Performed On: 06/07/2011 15:52 CDT by JUANA ARMANDO RN Psycho/Emotional Affect/Behavior: Calm, Cooperative, Appropriate Pain Symptoms: No JUANA ARMANDO RN - 06/07/2011 15:52 CDT Coping Grid Identifies effective strategies: Yes Uses effective strategies: Yes Reports increase in psychological comfort: Yes Indicates sense of control: Yes Stressors perceived within control: Yes Stable mood with appropriate affect: Yes Behaviors indicate use of coping mechanism: Yes Family supportive and involved in care: Yes Values/Beliefs incorporated appropriately: Yes JUANA ARMANDO RN - 06/07/2011 15:52 CDT Safety Grid Vision, Hearing, Mobility Adequate to Meet Safety Needs: Yes JUANA ARMANDO RN - 06/07/2011 15:52 CDT Psycho/Emotional Detailed Assessment: Yes JUANA ARMANDO RN - 06/07/2011 15:52 CDT Psycho/Emotional Detailed Hallucinations Present: None Orientation: Oriented x 3, Appropriate for age Participates in Age-specific Activities: Yes Cognition: Adequate concentration Behavior & General Appearance: Appropriate for situation Behavior/Interaction with Peers/Staff Appropriate: Yes Thought Process Intact: Yes JUANA ARMANDO RN - 06/07/2011 15:52 CDT Suicide Risk Re-Assessment Ongoing Behaviors/Threats of Harm to Self: No Behaviors/Threats of Harm to Others: No Do you have a plan for suicide?: No JUANA ARMANDO RN - 06/07/2011 15:52 CDT Nutrition Eating Difficulties: None Appetite: Excellent Nutrition Risk Factors by History Adult: None JUANA ARMANDO RN - 06/07/2011 15:52 CDT Hendrich II Fall Risk Confusion/Disorientation Hendrich: No Depression Fall Risk Hendrich: No Altered Elimination Fall Risk Hendrich: No Dizziness/Vertigo Fall Risk Hendrich: No Gender, Male Fall Risk Hendrich: No Prescribed Antiepileptics Hendrich: No Prescribed Benzodiazepines Hendrich: No Rising From Chair Fall Risk Hendrich: Able to rise in a single movement, no loss of balance with steps Fall Risk Score Hendrich II: 0 JUANA ARMANDO RN - 06/07/2011 15:52 CDT Education General Patient Education [employer] Topics: Other: Take 5 (Comment: Introduced myself to patient. [JUANA ARMANDO RN - 06/07/2011 15:52CDT] ) Individuals Taught: Patient Barriers to Learning: None evident Teaching Method: Explanation Teaching Evaluation: Verbalizes understanding JUANA ARMANDO RN - 06/07/2011 15:52 CDT Source: [facility] [employer] Document Id: [id number] CDT!51 Miscellaneous - Pawel Andrews R.N. - 06/07/2011 1:42 PM CDT Adult Activities of Daily Living Adult Activities of Daily Living Entered On: 06/07/2011 13:43 CDT Performed On: 06/07/2011 13:42 CDT by PAWEL ANDREWS RN ADLs I Activity Status ADL: Up ad bebo Activity Assistance: Independent Positioning/Pressure Reducing Devices: Pillow Ambulation Patient Effort: Good PAWEL ANDREWS RN - 06/07/2011 13:42 CDT ADLs II Hygiene Assistance Grid Hair Care: Independent Oral Care: Independent Shower: Independent PAWEL ANDREWS RN - 06/07/2011 13:42 CDT Elimination Assistance Offered Q2H: Independent Standard Safety: Bed in low position, ID band check, Night light, Non-Slip footwear, Rounds every 1 hour PAWEL ANDREWS RN - 06/07/2011 13:42 CDT ADLs Adult Nutrition Feeding Assistance: Independent Breakfast: 100% Lunch: 100% PAWEL ANDREWS RN - 06/07/2011 13:42 CDT Source: [employer] Document Id: [id number] CDT!17 Miscellaneous - Pawle Andrews R.N. - 06/07/2011 1:33 PM CDT Adult Ongoing Assessment Adult Ongoing Assessment Entered On: 06/07/2011 13:42 CDT Performed On: 06/07/2011 13:33 CDT by PAWEL ANDREWS RN Psycho/Emotional Affect/Behavior: Calm, Cooperative, Appropriate Pain Symptoms: Yes PAWEL ANDREWS RN - 06/07/2011 13:33 CDT Pain Pain Assessment Grid Pain 1 Location: Lower back Laterality: Bilateral Intensity: 10 Time Pattern: Chronic Onset: Gradual Interventions: MD notified, Medications, Repositioning, Rest PAWEL ANDREWS RN - 06/07/2011 13:33 CDT Effects of Pain Grid Appetite: None Concentration: Mild Daily Life: Mild Emotions: Mild Relationships: Mild Sleep: Mild Work/School: Mild PAWEL ANDREWS RN - 06/07/2011 13:33 CDT Nutrition Eating Difficulties: None Appetite: Excellent PAWEL ANDREWS RN - 06/07/2011 13:33 CDT Stephan Sensory Perception Stephan: No impairment Moisture Stephan: Rarely moist Activity Stephan: Walks frequently Mobility Stephan: Slightly limited Nutrition Stephan: Excellent Friction and Shear Stephan: No apparent problem Stephan Score: 22 PAWEL ANDREWS RN - 06/07/2011 13:33 CDT Hendrich II Fall Risk Confusion/Disorientation Hendrich: No Depression Fall Risk Hendrich: No Altered Elimination Fall Risk Hendrich: No Dizziness/Vertigo Fall Risk Hendrich: No Gender, Male Fall Risk Hendrich: No Prescribed Antiepileptics Hendrich: No Prescribed Benzodiazepines Hendrich: No Rising From Chair Fall Risk Hendrich: Able to rise in a single movement, no loss of balance with steps Fall Risk Score Hendrich II: 0 PAWEL ANDREWS RN - 06/07/2011 13:33 CDT Education General Patient Education [employer] Topics: Other: Nursing Take five Individuals Taught: Patient Barriers to Learning: None evident Teaching Method: Explanation Teaching Evaluation: Verbalizes understanding Comments (Comment: Patient reports ongoing lower back pain despite prn Motrin. [PAWEL ANDREWS RN - 06/07/2011 13:33 CDT] ) PAWEL ANDREWS RN - 06/07/2011 13:33 CDT Source: [employer] Document Id: [id number] CDT!50 Miscellaneous - Feng Ortiz RMayurN. - 06/07/2011 6:27 AM CDT Adult Ongoing Assessment Adult Ongoing Assessment Entered On: 06/07/2011 6:27 CDT Performed On: 06/07/2011 6:27 CDT by FENG ORTIZ RN Psycho/Emotional Affect/Behavior: Other: resting/sleeping Pain Symptoms: No Psycho/Emotional Detailed Assessment: Yes FENG ORTIZ RN - 06/07/2011 6:27 CDT Psycho/Emotional Detailed Sleep Assessment: Slept well 6 or more consecutive hours Hours of sleep, uninterrupted: 7 FENG ORTIZ RN - 06/07/2011 6:29 CDT Hendrich II Fall Risk Confusion/Disorientation Hendrich: No Depression Fall Risk Hendrich: No Altered Elimination Fall Risk Hendrich: No Dizziness/Vertigo Fall Risk Hendrich: No Gender, Male Fall Risk Hendrich: No Prescribed Antiepileptics Hendrich: No Prescribed Benzodiazepines Hendrich: No Rising From Chair Fall Risk Hendrich: Able to rise in a single movement, no loss of balance with steps Fall Risk Score Hendrich II: 0 FENG ORTIZ RN - 06/07/2011 6:27 CDT Source: [employer] Document Id: [id number] CDT!4 Patricia - Feng Ortiz RKameron - 06/07/2011 6:27 AM CDT Adult Activities of Daily Living Adult Activities of Daily Living Entered On: 06/07/2011 6:28 CDT Performed On: 06/07/2011 6:27 CDT by FENG ORTIZ RN ADLs I Activity Status ADL: Up ad bebo Activity Assistance: Independent Assistive Device: None FENG ORTIZ RN - 06/07/2011 6:27 CDT ADLs II Standard Safety: ID band check, Rounds every 1 hour FENG ORTIZ RN - 06/07/2011 6:27 CDT ADLs Adult Nutrition Feeding Assistance: Independent FENG ORTIZ RN - 06/07/2011 6:27 CDT Source: [employer] Document Id: [id number] CDT!9 Patricia - Kota Salinas RKameron - 06/06/2011 9:27 PM CDT Adult Ongoing Assessment Adult Ongoing Assessment Entered On: 06/06/2011 21:29 CDT Performed On: 06/06/2011 21:27 CDT by KOTA SALINAS RN Neurological Neuro Patient Stated Symptoms: None Orientation: Oriented x 3 Level of Consciousness: Alert Gait: Steady Swallowing Difficulty/Aspiration Risk: None KOTA SALINAS RN - 06/06/2011 21:27 CDT Psycho/Emotional Affect/Behavior: Cooperative, Appropriate Pain Symptoms: No KOTA SALINAS RN - 06/06/2011 21:27 CDT Coping Grid Identifies effective strategies: Yes Uses effective strategies: Yes Reports increase in psychological comfort: No Indicates sense of control: Yes Stressors perceived within control: No Stable mood with appropriate affect: Yes Behaviors indicate use of coping mechanism: Yes Family supportive and involved in care: Yes Values/Beliefs incorporated appropriately: Yes KOTA SALINAS RN - 06/06/2011 21:27 CDT Safety Grid Vision, Hearing, Mobility Adequate to Meet Safety Needs: Yes KOTA SALINAS RN - 06/06/2011 21:27 CDT Psycho/Emotional Detailed Assessment: Yes KOTA SALINAS [place] - 06/06/2011 21:27 CDT Psycho/Emotional Detailed Hallucinations Present: None Orientation: Oriented x 3 Participates in Age-specific Activities: Yes Cognition: Cooperative with 1:1 Behavior & General Appearance: Appropriate for situation, Social with peers and staff, interactsappropriately, ADLs self-initiated Behavior/Interaction with Peers/Staff Appropriate: Yes Thought Process Intact: Yes KOTA SALINAS RN - 06/06/2011 21:27 CDT Suicide Risk Re-Assessment Ongoing Behaviors/Threats of Harm to Self: No Behaviors/Threats of Harm to Others: No Do you have a plan for suicide?: No KOTA SALINAS [place] - 06/06/2011 21:27 CDT Stephan Sensory Perception Stephan: No impairment Moisture Stephan: Rarely moist Activity Stephan: Walks frequently Mobility Stephan: No limitations Nutrition Stephan: Adequate Friction and Shear Stephan: No apparent problem Stephan Score: 22 KOTA SALINAS RN - 06/06/2011 21:27 CDT Hendrich II Fall Risk Confusion/Disorientation Hendrich: No Depression Fall Risk Hendrich: Yes Altered Elimination Fall Risk Hendrich: No Dizziness/Vertigo Fall Risk Hendrich: No Gender, Male Fall Risk Hendrich: No Prescribed Antiepileptics Hendrich: No Prescribed Benzodiazepines Hendrich: No Rising From Chair Fall Risk Hendrich: Able to rise in a single movement, no loss of balance with steps Fall Risk Score Hendrich II: 2 KOTA SALINAS [place] - 06/06/2011 21:27 CDT Education General Patient Education [employer] Topics: Other: Take 5 Individuals Taught: Patient Barriers to Learning: None evident Teaching Method: Explanation Teaching Evaluation: Verbalizes understanding KOTA SALINAS RN - 06/06/2011 21:27 CDT [facility] Document Id: [id number] CDT!61 Patricia - Kota Salinas R.N. - 06/06/2011 4:58 PM CDT Adult Activities of Daily Living Adult Activities of Daily Living Entered On: 06/06/2011 16:59 CDT Performed On: 06/06/2011 16:58 CDT by KOTA SALINAS RN ADLs I Activity Status ADL: Up ad bebo Activity Assistance: Independent Assistive Device: None Range of Motion LUE: Active Range of Motion RUE: Active Range of Motion LLE: Active Range of Motion RLE: Active Ambulation Patient Effort: Good KOTA SALINAS RN - 06/06/2011 16:58 CDT ADLs II Elimination Assistance Offered Q2H: Independent Standard Safety: ID band check, Non-Slip footwear, Other: 15 minute rounds check KOTA SALINAS RN - 06/06/2011 16:58 CDT ADLs Adult Nutrition Dinner: 100% KOTA SALINAS RN - 06/06/2011 20:04 CDT Feeding Assistance: Independent KOTA SALINAS RN - 06/06/2011 16:58 CDT Source: [employer] Document Id: [id number] CDT!16 Patricia - Aura Bhatti R.N. - 06/06/2011 2:38 PM CDT Adult Activities of Daily Living Adult Activities of Daily Living Entered On: 06/06/2011 14:39 CDT Performed On: 06/06/2011 14:38 CDT by AURA BHATTI RN ADLs I Activity Status ADL: Up ad bebo Activity Assistance: Independent Assistive Device: None AURA BHATTI RN - 06/06/2011 14:38 CDT ADLs II Hygiene Assistance Grid Shower: Independent AURA BHATTI RN - 06/06/2011 14:38 CDT Standard Safety: Bed in low position, ID band check, Non-Slip footwear, Rounds every 1 hour, Other: C3SP AURA BHATTI RN - 06/06/2011 14:38 CDT ADLs Adult Nutrition Feeding Assistance: Independent Breakfast: 50% Lunch: 75% AURA BHATTI RN - 06/06/2011 14:38 CDT Source: [employer] Document Id: [id number] CDT!13 Miscellaneous - Aura Bhatti R.N. - 06/06/2011 8:50 AM CDT Adult Ongoing Assessment Adult Ongoing Assessment Entered On: 06/06/2011 14:38 CDT Performed On: 06/06/2011 8:50 CDT by AURA BHATTI RN Psycho/Emotional Affect/Behavior: Cooperative, Appropriate Pain Symptoms: Yes AURA BHATTI RN - 06/06/2011 14:36 CDT Pain Pain Assessment Grid Pain 1 Location: Lower back Intensity: 10 Time Pattern: Chronic Quality: Aching AURA BHATTI RN - 06/06/2011 14:36 CDT Effects of Pain Grid Appetite: Mild Concentration: Mild Daily Life: Mild Emotions: Mild Relationships: Mild Sleep: Mild Work/School: Mild AURA BHATTI RN - 06/06/2011 14:36 CDT Stephan Sensory Perception Stephan: No impairment Moisture Stephan: Rarely moist Activity Stephan: Walks frequently Mobility Stephan: No limitations Nutrition Stephan: Adequate Friction and Shear Stephan: No apparent problem Stephan Score: 22 AURA BHATTI RN - 06/06/2011 14:36 CDT Hendrich II Fall Risk Confusion/Disorientation Hendrich: No Depression Fall Risk Hendrich: Yes Altered Elimination Fall Risk Hendrich: No Dizziness/Vertigo Fall Risk Hendrich: No Gender, Male Fall Risk Hendrich: No Prescribed Antiepileptics Hendrich: No Prescribed Benzodiazepines Hendrich: No Rising From Chair Fall Risk Hendrich: Able to rise in a single movement, no loss of balance with steps Fall Risk Score Cubarich II: 2 AURA BHATTI RN - 06/06/2011 14:36 CDT Education General Patient Education [facility] Topics: Other: TAKE 5- PT IRRITABLE- AURA BHATTI RN - 06/06/2011 14:36 CDT Source: [employer] Document Id: [id number] CDT!41 Feng Neville R.N. - 06/06/2011 12:45 AM CDT Basic Admission Information Basic Admission Information Entered On: 06/06/2011 0:46 CDT Performed On: 06/06/2011 0:45 CDT by FENG ORTIZ RN Vital Signs Temperature Core: 36.7C(Converted to: 98.1DegF) Peripheral Pulse Rate: 98/min Systolic Blood Pressure: 108mmHg Diastolic Blood Pressure: 57mmHg NIBP Mean: 74mmHg FENG ROTIZ RN - 06/06/2011 0:45 CDT Allergy Rule Allergies (Active) naproxen Estimated Onset Date: Unspecified ; Reactions: ITCHING ; Created By: Contributor_system, [email or web address]_HX_[employer]; Reaction Status: Active ; Category: Drug ; Substance: naproxen ; Type: Unknown ; Severity: <not entered> ; Updated By: Contributor_system, AU_HX_SYS; Reviewed Date: 06/05/2011 21:21 CDT Valuables/Belongings Belongings Sent Home With: Upstairs with patient, see sheet FENG ORTIZ RN - 06/06/2011 0:45 CDT Source: [employer] Document Id: [id number] CDT!9 Feng Neville R.N. - 06/06/2011 12:26 AM CDT Adult Ongoing Assessment Adult Ongoing Assessment Entered On: 06/06/2011 0:27 CDT Performed On: 06/06/2011 0:26 CDT by FENG ORTIZ RN Respiratory Respiratory Patient Stated Symptoms: None FENG ORTIZ RN - 06/06/2011 0:26 CDT Cardiovascular CV Patient Stated Symptoms: None FENG ORTIZ RN - 06/06/2011 0:26 CDT Neurological Neuro Patient Stated Symptoms: None FENG ORTIZ RN - 06/06/2011 0:26 CDT Alicia Coma Eye Opening Response [place]: Spontaneously Best Verbal Response Alicia: Oriented Best Motor Response [place]: Obeys simple commands [place] Coma Score: 15 FENG ORTIZ RN - 06/06/2011 0:26 CDT Psycho/Emotional Affect/Behavior: Impulsive Pain Symptoms: Yes Psycho/Emotional Detailed Assessment: Yes FENG ORTIZ RN - 06/06/2011 0:26 CDT Psycho/Emotional Detailed Sleep Assessment: Slept fairly well 4-6 consecutive hours Hours of sleep, uninterrupted: 4 FENG ORTIZ RN - 06/06/2011 5:31 CDT Hallucinations Present: None Orientation: Oriented x 3 Behavior/Interaction with Peers/Staff Appropriate: No FENG ORTIZ RN - 06/06/2011 0:26 CDT Pain Pain Assessment Grid Pain 1 Location: Lower back FENG ORTIZ RN - 06/06/2011 0:26 CDT Effects of Pain Grid Appetite: None Sleep: Moderate Work/School: Severe FENG ORTIZ RN - 06/06/2011 0:26 CDT Hendrich II Fall Risk Confusion/Disorientation Hendrich: No Depression Fall Risk Hendrich: Yes Altered Elimination Fall Risk Hendrich: No Dizziness/Vertigo Fall Risk Hendrich: No Gender, Male Fall Risk Hendrich: No Prescribed Antiepileptics Hendrich: No Prescribed Benzodiazepines Hendrich: No Rising From Chair Fall Risk Hendrich: Able to rise in a single movement, no loss of balance with steps Fall Risk Score Hendrich II: 2 FENG ORTIZ RN - 06/06/2011 0:26 CDT Source: [employer] Document Id: [id number] CDT!4 Miscellaneous - Feng Ortiz RKameron - 06/06/2011 12:17 AM CDT Adult Admission History Adult Admission History Entered On: 06/06/2011 0:21 CDT Performed On: 06/06/2011 0:17 CDT by FENG ORTIZ RN General Info Preferred Name: emiliano Mode of Arrival: Ambulatory Accompanied By: Mother Chief Complaint: depressed, stressed, trying to decide on job/college Preferred Communication Mode: Verbal Information Given By: Patient Languages: Moroccan FENG ORTIZ RN - 06/06/2011 0:17 CDT Allergy Allergies (Active) naproxen Estimated Onset Date: Unspecified ; Reactions: ITCHING ; Created By: Contributor_system, AU[employer]HX[employer]SYS; Reaction Status: Active ; Category: Drug ; Substance: naproxen ; Type: Unknown ; Severity: <not entered> ; Updated By: Contributor_system AU[employer]HX[employer]SYS; Reviewed Date: 06/05/2011 21:21 CDT Problem List/Diagnoses Problems(Active) ADHD - Attention deficit disorder with hyperactivity Name of Problem: ADHD - Attention deficit disorder with hyperactivity ; Recorder: LAUREN STRINGER MD; Confirmation: Confirmed ; Classification: Medical ; Code: 724670 ; Contributor System: [employer] ; Last Updated: 06/03/2011 3:53 CDT ; Life CycleDate: 06/03/2011 ; Life Cycle Status: Active ; Responsible Provider: LAUREN STRINGER MD; Vocabulary: SNOMED CT Pain Neck Name of Problem: Pain Neck ; Onset Date: 07/2009 ; Classification: Medical ; Code: 1231 ; Contributor System: [place] [employer] ; Last Updated: 08/13/2009 18:00 VISUAL AID EXPERT ; Life Cycle Date: 01/03/2010 ; Life Cycle Status: Active ; Vocabulary: ICD-9-CM Tobacco Abuse Name of Problem: Tobacco Abuse ; Onset Date: 07/2009 ; Classification: Medical ; Code:1231 ; Contributor System: [employer]HPP[employer] ; Last Updated: 08/13/2009 18:00 VISUAL AID EXPERT ; Life Cycle Date: 01/03/2010 ; Life Cycle Status: Active ; Vocabulary: ICD-9-CM Diagnoses(Active) Psychiatric screening exam Date: 06/05/2011 20:50 CDT ; Diagnosis Type: Reason For Visit ; Confirmation: Complaint of ; Classification: Medical ; Clinical Service: Emergency medicine ; Code: PNED ; Probability: 0 ; Diagnosis Code: [id number] Nutrition Nutrition Risk Factors by History Adult: None Home Diet: Regular Eating Difficulties: None FENG ORTIZ RN - 06/06/2011 0:17 CDT Home Environment Current Daily Living Assistance: None FENG ORTIZ RN - 06/06/2011 0:17 CDT Dependent Habits Tobacco Use/Currently Using: Yes FENG ORTIZ RN - 06/06/2011 0:17 CDT Tobacco Use Grid Cigarette Use Packs/Day: 0.5 FENG ORTIZ RN - 06/06/2011 0:17 CDT Alcohol Use: No FENG ORTIZ RN - 06/06/2011 0:17 CDT Caffeine Use Grid Caffeine Use: Current Type: Soft drinks Frequency: Occasionally FENG ORTIZ RN - 06/06/2011 0:17 CDT Recreational Drug Use Grid Frequency: Occasionally FENG ORTIZ RN - 06/06/2011 0:17 CDT Psychosocial Adult Domestic Abuse Concerns: None FENG ORTIZ RN - 06/06/2011 0:17 CDT Advance Directive Advanced Directives: No FENG ORTIZ RN - 06/06/2011 0:17 CDT Educ Needs Learning Style Preference Adult Grid Patient: Demonstration, Printed materials, Verbal explanation, Video/Educational TV Family: Printed materials, Verbal explanation, Video/Educational TV, Demonstration FENG ORTIZ RN - 06/06/2011 0:17 CDT Source: [facility] [employer] Document Id: [id number] CDT!37 Miscellaneous - Feng Ortiz RMayurNMayur - 06/06/2011 12:14 AM CDT Adult Admission Assessment Adult Admission Assessment Entered On: 06/06/2011 0:17 CDT Performed On: 06/06/2011 0:14 CDT by FENG ORTIZ RN Respiratory Respiratory Patient Stated Symptoms: None FENG ORTIZ RN - 06/06/2011 0:14 CDT Cardiovascular CV Patient Stated Symptoms: None FENG ORTIZ RN - 06/06/2011 0:14 CDT Neurological Neuro Patient Stated Symptoms: None Orientation: Oriented x 3 Level of Consciousness: Alert Gait: Steady Swallowing Difficulty/Aspiration Risk: None FENG ORTIZ Gris CROSS - 06/06/2011 0:14 CDT Alicia Coma Eye Opening Response [place]: Spontaneously Best Verbal Response Alicia: Oriented Best Motor Response [place]: Obeys simple commands Alicia Coma Score: 15 FENG ORTIZ Gris CROSS - 06/06/2011 0:14 CDT Psycho/Emotional Pain Symptoms: Yes Affect/Behavior: Agitated, Anxious, Appears depressed, Crying, Hostile, Inappropriate Feels Rested: No FENG ORTIZ Gris CROSS - 06/06/2011 0:14 CDT Coping Grid Identifies effective strategies: No Uses effective strategies: No Reports increase in psychological comfort: No Indicates sense of control: No Stressors perceived within control: No FENG ORTIZ Gris CROSS - 06/06/2011 0:14 CDT Psycho/Emotional Detailed Assessment: Yes FENG ORTIZ Gris CROSS - 06/06/2011 0:14 CDT Psycho/Emotional Detailed Hallucinations Present: None Orientation: Oriented x 3 FENG ORTIZ Gris CROSS - 06/06/2011 0:14 CDT Pain Pain Assessment Grid Pain 1 Location: Lower back FENG ORTIZ Gris - 06/06/2011 0:14 CDT Effects of Pain Grid Appetite: None Work/School: Severe FENG ORTIZ Gris CROSS - 06/06/2011 0:14 CDT Gastrointestinal GI Patient Stated Symptoms: None FENG ORTIZ Gris CROSS - 06/06/2011 0:14 CDT Genitourinary Patient Stated Symptoms: None FENG ORTIZ Gris CROSS - 06/06/2011 0:14 CDT Integumentary Integumentary Patient Stated Symptoms: None Skin Integrity: Intact CHONG ORTIZMOISES Landry RN - 06/06/2011 0:14 CDT Stephan Sensory Perception Stephan: No impairment Moisture Stephan: Rarely moist Activity Stephan: Walks frequently Mobility Stephan: No limitations Nutrition Stephan: Excellent CHONG ORTIZMOISES Landry RN - 06/06/2011 0:14 CDT Musculoskeletal Musculoskeletal Patient Stated Symptoms: None FENG ORTIZ Gris CROSS - 06/06/2011 0:14 CDT Hendrich II Fall Risk Confusion/Disorientation Hendrich: No Depression Fall Risk Hendrich: Yes Altered Elimination Fall Risk Hendrich: No Dizziness/Vertigo Fall Risk Hendrich: No Gender, Male Fall Risk Hendrich: No Prescribed Antiepileptics Hendrich: No Prescribed Benzodiazepines Hendrich: No Rising From Chair Fall Risk Hendrich: Able to rise in a single movement, no loss of balance with steps Fall Risk Score Hendrich II: 2 FENG ORTIZ RN - 06/06/2011 0:14 CDT Source: [employer] Document Id: [id number] CDT!62 Marycellwilbur - Feng Ortiz RKameron - 06/06/2011 12:13 AM CDT Adult Activities of Daily Living Adult Activities of Daily Living Entered On: 06/06/2011 0:14 CDT Performed On: 06/06/2011 0:13 CDT by FENG ORTIZ RN ADLs I Activity Status ADL: Up ad bebo Activity Assistance: Independent Assistive Device: None FENG ORTIZ RN - 06/06/2011 0:13 CDT ADLs II Standard Safety: ID band check, Other: c3 safety checks every 15 minutes FENG ORTIZ RN - 06/06/2011 0:13 CDT ADLs Adult Nutrition Feeding Assistance: Independent FENG ORTIZ RN - 06/06/2011 0:13 CDT Source: [employer] Document Id: [id number] CDT!9 Miscellwilbur - Emmanuel Lo RMayurN. - 06/05/2011 10:32 PM CDT Valuables/Belongings Valuables/Belongings Entered On: 06/05/2011 22:32 CDT Performed On: 06/05/2011 22:32 CDT by EMMANUEL LO RN Valuables/Belongings Belongings Sent Home With: Upstairs with patient EMMANUEL LO RN - 06/05/2011 22:32 CDT Source: [employer] Document Id: [id number] CDT!3 Patricia - Kinjal Hood [facility]- - 06/05/2011 10:32 PM CDT Facility Charge Ticket Facility Charge Ticket Entered On: 06/06/2011 8:45 CDT Performed On: 06/05/2011 22:32 CDT by KINJAL HOOD Facility Charge TVL Level for Facility Charge Ticket: Level 3 Mode of Arrival ED: Private vehicle, Ambulatory [facility]x Mode of Arrival Interpreted: Standard [facility] Process Management: None [facility] Order Management: Lab tests 30 Minutes Critical Care: No [facility] Nursing Assessment: Triage and 1-2 nursing assessments Lynx Disposition: Admit - Observation, Inpatient, or other Outpatient [facility] Total Points with Diagnosis Control: 10 Lynx Visit Level: 97447 Level 4 KINJAL HOOD - 06/06/2011 8:45 CDT Source: [employer] Document Id: [id number] CDT!12 Miscellwilbur - Emmanuel Lo R.N. - 06/05/2011 8:43 PM CDT Facility Charge Ticket Facility Charge Ticket Entered On: 06/05/2011 22:32 CDT Performed On: 06/05/2011 20:43 CDT by EMMANUEL LO RN Facility Charge TVL Level for Facility Charge Ticket: Level 3 Mode of Arrival ED: Private vehicle, Ambulatory Lynx Mode of Arrival Interpreted: Standard [facility]x Process Management: None [facility]x Order Management: Lab tests 30 Minutes Critical Care: No EMMANUEL LO RN - 06/05/2011 22:32 CDT Source: [employer] Document Id: [id number] CDT!8 documented in this encounter Plan of Treatment Not on filedocumented as of this encounter Visit Diagnoses Not on filedocumented in this encounter
--- OUTSIDE RECORDS SUMMARY | 2022-07-11 09:23 | XMS_ITS | Encounter Summary ---
:[address] [facility] Address [address] [place] [address] Care Team Providers Name Role Phone Unavailable Primary Care Provider Unavailable Encounter Details Date Type Department Care Team Description 07/22/[address] [facility] Nicolasa Toribio D.O. Social History Tobacco Use Types Packs/Day Years Used Date Smoking Tobacco: Never Assessed Sex Assigned at Date Recorded Not on file documented as of this encounter Procedure Notes Miya Pal, L.P.N. - 07/22/2012 3:22 PM CDT Depo-Provera Administration Depo-Provera Administration Entered On: 07/22/2012 15:23 CDT Performed On: 07/22/2012 15:22 CDT by MIYA PAL LPN Depo-Provera Administration Last Depo-Provera Given : 07/22/2012 CDT Return appointment : 11/07/2012 EXPERT MEDICAL WRITER Depo-Provera Administration Comments : lot#[id number] /WT 106.0KG MIYA PAL LPN - 07/22/2012 15:22 CDT Source: [facility] POWERCHART Document Id: [id number] documented in this encounter Plan of Treatment Not on filedocumented as of this encounter Visit Diagnoses Not on filedocumented in this encounter
--- OUTSIDE RECORDS SUMMARY | 2022-07-11 09:23 | XMS_ITS | Encounter Summary ---
:1990 Author Organization [facility] Address [address] [place] [address] Care Team Providers Name Role Phone Unavailable Primary Care Provider Unavailable Encounter Details Date Type Department Care Team Description 10/17/2010 Hospital Encounter [facility]X [facility] Nicolasa Toribio D.O. Social History Tobacco Use Types Packs/Day Years Used Date Smoking Tobacco: Never Assessed Sex Assigned at Date Recorded Not on file documented as of this encounter Plan of Treatment Not on filedocumented as of this encounter Visit Diagnoses Not on filedocumented in this encounter
--- OUTSIDE RECORDS SUMMARY | 2022-07-11 09:23 | XMS_ITS | Encounter Summary ---
:1990 Author Organization [facility] Address [address] [place] [address] Care Team Providers Name Role Phone Unavailable Primary Care Provider Unavailable Encounter Details Date Type Department Care Team Description 06/25/2010 Hospital Encounter HX [facility] Nicolasa Desouza D.O. Social History Tobacco Use Types Packs/Day Years Used Date Smoking Tobacco: Never Assessed Sex Assigned at Date Recorded Not on file documented as of this encounter Progress Notes Nicolasa Desouza D.O. - 06/25/2010 9:40 AM CDT Report CLINIC NOTE [place], [place] PATIENT: [id number] NAME: YOLANDA LEONE ENCOUNTER: [id number] DATE OF : [birth year] SERVICE DATE: 06/25/10 PROVIDER: Nicolasa Desouza DO LOCATION: CLINIC DESCRIPTION: Annual Px CHARGES: 16696 PREVENTIVE VISIT, EST, 18-39 DIAGNOSES: V72.31 ROUTINE GYNECOLOGICAL EXAMINATION DOCUMENT TEXT: Patient Age: 20 Report Dictation DICTATED BY: Nicolasa Desouza DO DATE: 06/25/2010 ASSESSMENT: Gynecologic examination. PLAN: 1. A Pap smear is obtained. We will notify the patient of results. 2. GC and Chlamydia cultures as well as vaginosis panel are obtained. 3. HIV, hepatitis B and RPR are ordered. 4. The patient will continue her Depo. SUBJECTIVE: The patient is an 20-year-old 0 female who presents today for a AIRPLANE PILOT PHOTOGRAMMETRY exam. She is doing well. She has no complaints. She would like to have sexually transmitted disease check performed. She wants both cultures and blood work. She states that she became sexually active at approximately age 16. PAST MEDICAL HISTORY: Positive for depression, acne and addictive personality. PAST SURGICAL HISTORY: Positive for tonsillectomy. MEDICATIONS: Adderall XR and Depo-Provera. ALLERGIES: No known drug allergies. SOCIAL HISTORY: Positive for caffeine and tobacco. No alcohol. She does wear seat belts. She does not use sunscreen. She does not do her own breast exams. She states she had tetanus approximately one year ago. She is up-to-date on her dentist and had an eye exam approximately a year ago. FAMILY HISTORY: Positive for an aunt with breast cancer. No ovarian or colon cancer. Her mother did have cervical cancer. REVIEW OF SYSTEMS: GENERAL: The patient denies fatigue. HEAD: The patient denies cephalgia or syncope. EYES: The patient denies diplopia, cataracts or glaucoma. EARS: The patient denies decreased hearing and tinnitus. NOSE: Denies sinusitis or epistaxis. THROAT: The patient denies dysphagia. CARDIOVASCULAR: The patient denies chest pain or claudication. RESPIRATORY: Positive for cough she states due to her smoking. GASTROINTESTINAL: The patient denies nausea, vomiting or diarrhea. GENITOURINARY: The patient petition denies dysuria or frequency. NEUROLOGIC: The patient denies seizures. MUSCULOSKELETAL: The patient denies joint aches. SKIN: The patient denies rashes. EMOTIONAL: Positive for as stated above and her scale was 6. GYNECOLOGIC: Her last period unknown since she is on Depo. OBJECTIVE: VITAL SIGNS: Blood pressure 105/65, weight 84.4 kilograms, height 165 cm, pulse 80. NECK: Supple without lymphadenopathy or tenderness. No thyromegaly is noted. HEART: Regular rate and rhythm without murmur. LUNGS: Clear to auscultation. BREASTS: Symmetrical without masses or abnormal discharge. ABDOMEN: Soft and nontender. No organomegaly is noted. Bowel sounds present. Jose sign is negative. LYMPHATIC: Inguinal, supraclavicular and axillary nodes are negative. PELVIC: External female genitalia are felt to be within normal limits. Bartholin and [place] glands are normal. Vagina is pink. Normal rugae. Cervix is parous. Uterus is retroverted and of normal size. No adnexal masses noted. RAP:shaun cc: Rooming Doc Allergies Coded Allergies: No Known Drug Intolerances (Unknown,Unknown 06/25/10) Patient History Social History Social History was reviewed and updated. Marital Status: single Occupation: STUDENT Tobacco use or exposure? Y Type: pt is a smoker Packs per day: [id number] Cessation advise offered: Y Any use of alcohol? N Any user of caffeine? N Any recent travel? Y Travel Region(s): [place] PHQ-9 Screening Date: 06/25/10 PHQ-9 Score: 6 Surgery and Event History Tonsillectomy & Adenoidectomy, 01/30/05 Health Maint and Disease Mgmt Health Maintenance and Disease Management was reviewed and updated. Vitals Height: 165 cm Weight: 84.4 kg BSA: 2 m2 BMI: 31.0 kg/m2 Pulse: 80 Blood Pressure: 105/65 (Sitting, Right Arm) Additional Vitals Information Pain: N Information provided by: Elissa REYES Chief Complaint: PX/GRAVA 0/LMP DEPO/LAST PAP - Medication Verification: YES Orders Medications and Procedures Prescriptions: Active - Amphet Asp/Amphet/D-Amphet (Adderall Xr) 15 MG XR.CAP, 05/21/10 30 Milligrams ORAL every day, 30 Days Cap, Refills 0 Dx - ATTN DEFICIT W HYPERACT Reported - Medroxyprogesterone (Depo-Provera) 150 MG/ML VIAL 150 Milligrams INTRAMUSC every 12 weeks, #4 Discontinued - Calcium Citrate/Vitamin D3 (Citracal 250MG + D Tablet) 1 EACH TABLET, 08/18 1 Tablet ORAL every day Tablet Ibuprofen (Motrin) 400 MG TABLET, 10/25/08 400 Milligrams ORAL twice a day, #20 Tablet, Refills 0 Terbinafine (Lamisil Cream) 1 % TUBE, 11/09/09 1 Application TOPICAL twice a day, #24 Gram Dx - DERMATOPHYTOSIS OF BODY Hydrocortisone (Cortaid Cream) 1 % TUBE, 11/09/09 1 Application TOPICAL twice a day, #15 Gram Diagnostics: HIV 1,2 ( Today at [facility]) Dx - SCREEN FOR VENERAL DIS GC - Chlam DNA Probe ( Today at [facility]) Dx - SCREEN FOR VENERAL DIS RPR Serology ( Today at [facility]) Dx - SCREEN FOR VENERAL DIS Vaginosis Panel, DNA ( Today at [facility]) Dx - SCREEN FOR VENERAL DIS Hepatitis Bs Antigen ( Today at [facility]) Dx - SCREEN FOR VENERAL DIS at 1201. Source: [facility] [employer] Document Id: [id number] documented in this encounter Plan of Treatment Not on filedocumented as of this encounter Procedures Procedure Name Priority Date/Time Associated Diagnosis Comme nts LAB REPORT Routine 06/25/2010 9:41 AM Results f or this CDT procedure are i n the results section . documented in this encounter Results LAB REPORT (06/25/2010 9:41 AM CDT) Specimen (Source) Anatomical Collection Method Collection Time Re ceived Time Location / / Volume Laterality 06/25/2010 9:41 AM CDT Narrative [facility] - 10/16/19 11 11:56 PM DENTAL CERAMIST ASSISTANT [facility] CYTOLOGY REPORT NAME: ??YOLANDA LEONE ?ATTENDING DR: Nicolasa Desouza ??DO SEX: ?? F ? PATIENTS LOCATION: [facility] : ?? [birth year] ?PATIENT ACCOUNT: [id number] MR#: ?? [id number] PHONE: [phone] 06/25/2010 ?([id number]) Requesting Physician: ??Nicolasa dickens D.O. ??[phone] DIAGNOSIS: A. ??Cervix/Vaginal/Endocervix Routine: Satisfactory for evaluation. Partially obscuring inflammation. Negative for intraepithelial lesion or m alignancy. 06/26/2010 10:07 ??Interpreted by: LEONCIO Brewster(ASCP) Report electronically signed by: LEONCIO Brewster(ASCP) Director of Cytology: Elvia Loya SPECIMEN DESCRIPTION: A. ??Cervix/Vaginal/Endocervix Routine: ??Received 1 slide conventional smear. Historical Provider LAB HISTORICAL ORDERS Performing Organization Address City/State/ZIP Code Phon e Number [facility] documented in this encounter Visit Diagnoses Not on filedocumented in this encounter
--- OUTSIDE RECORDS SUMMARY | 2022-07-11 09:23 | XMS_ITS | Encounter Summary ---
:1990 Author Organization [facility] Address [address] [place] [address] Care Team Providers Name Role Phone Unavailable Primary Care Provider Unavailable Encounter Details Date Type Department Care Team Description 10/19/2012 Hospital Encounter HX [facility] Anibal Isaacs APRN, C.N.P., [address] [place], [place] [id number] (Wo rk) Social History Tobacco Use Types Packs/Day Years Used Date Smoking Tobacco: Never Assessed Sex Assigned at Date Recorded Not on file documented as of this encounter Procedure Notes Shazia Garcia, L.P.N. - 10/19/2012 3:39 PM CST Ear Irrigation Ear Irrigation Entered On: 10/19/2012 15:39 BODY TRIMMER UPHOLSTERER Performed On: 10/19/2012 15:39 BODY TRIMMER UPHOLSTERER by SHAZIA GARCIA LPN Ear Irrigation Ear Irrigation Location : Bilateral Ear Irrigation Technique Used : Ear washer Ear Irrigation Solution Used : Warm water Patient's Tolerance/cooperation : WEell Ear Irrigation Results : Good Results Post irrigation ear canal evaluation : Patent Post Irrigation Tympanic Membrane Eval : Intact SHAZIA GARCIA LPN - 10/19/2012 15:39 BODY TRIMMER UPHOLSTERER Source: [facility] POWERCHART Document Id: [id number] TRIMMER UPHOLSTERER documented in this encounter Plan of Treatment Not on filedocumented as of this encounter Visit Diagnoses Not on filedocumented in this encounter Additional Health Concerns Assessment Noted Time PHQ-9 Depression Total Score: 5 10/14/2012 1:41 PM BODY TRIMMER UPHOLSTERER documented as of this encounter
--- OUTSIDE RECORDS SUMMARY | 2022-07-11 09:23 | XMS_ITS | Encounter Summary ---
:1990 Author Organization [facility] Address [address] [place] [address] Care Team Providers Name Role Phone Unavailable Primary Care Provider Unavailable Encounter Details Date Type Department Care Team Description 08/29/2011 Hospital Encounter HX [facility] Nicolasa Toribio D.O. Social History Tobacco Use Types Packs/Day Years Used Date Smoking Tobacco: Never Assessed Sex Assigned at Date Recorded Not on file documented as of this encounter Procedure Notes Miya Pal, L.P.N. - 08/29/2011 11:10 AM CST Depo-Provera Administration Depo-Provera Administration Entered On: 08/29/2011 11:11 CONCESSION SUPERVISOR Performed On: 08/29/2011 11:10 CONCESSION SUPERVISOR by MIYA PAL LPN Depo-Provera Administration Last Depo-Provera Given : 06/09/2011 CDT Return appointment : 11/17/2011 CONCESSION SUPERVISOR Depo-Provera Administration Comments : lot# [id number] /[id number] 97.2KG MIYA PAL LPN - 08/29/2011 11:10 CONCESSION SUPERVISOR Source: [facility] POWERCHART Document Id: [id number] CONCESSION SUPERVISOR!5 ESSION SUPERVISOR documented in this encounter Plan of Treatment Not on filedocumented as of this encounter Visit Diagnoses Not on filedocumented in this encounter
--- OUTSIDE RECORDS SUMMARY | 2022-07-11 09:23 | XMS_ITS | Encounter Summary ---
:1990 Author Organization [facility] Address [address] [place] [address] Care Team Providers Name Role Phone Unavailable Primary Care Provider Unavailable Encounter Details Date Type Department Care Team Description 05/03/2012 Hospital Encounter HX [facility] Nicolasa Toribio D.O. Social History Tobacco Use Types Packs/Day Years Used Date Smoking Tobacco: Never Assessed Sex Assigned at Date Recorded Not on file documented as of this encounter Procedure Notes Miya Pal, L.P.N. - 05/03/2012 1:42 PM CDT Depo-Provera Administration Depo-Provera Administration Entered On: 05/03/2012 13:43 CDT Performed On: 05/03/2012 13:42 CDT by MIYA PAL LPN Depo-Provera Administration Last Depo-Provera Given : 05/03/2012 CDT Return appointment : 07/22/2012 CDT Depo-Provera Administration Comments : [id number] /WT 102.9KG MIYA PAL LPN - 05/03/2012 13:42 CDT Source: [facility] POWERCHART Document Id: [id number] documented in this encounter Plan of Treatment Not on filedocumented as of this encounter Visit Diagnoses Not on filedocumented in this encounter
--- OUTSIDE RECORDS SUMMARY | 2022-07-11 09:23 | XMS_ITS | Encounter Summary ---
:1990 Author Organization [facility] Address [address] [place] [address] Care Team Providers Name Role Phone Unavailable Primary Care Provider Unavailable Encounter Details Date Type Department Care Team Description 03/25/2013 - 04/05/2013 Hospital Encounter HX [facility] Social History Tobacco Use Types Packs/Day Years Used Date Smoking Tobacco: Never Assessed Sex Assigned at Date Recorded Not on file documented as of this encounter Last Filed Vital Signs Vital Sign Reading Time Taken Comments Blood Pressure 132/68 03/25/2013 6:09 PM CDT Pulse 90 03/25/2013 6:09 PM CDT Temperature - - Respiratory Rate 20 03/25/2013 6:09 PM CDT Oxygen Saturation - - Inhaled Oxygen Concentration - - Weight 90.1 kg (198 lb 10.2 oz) 03/25/2013 4:30 PM CDT Height 166 cm (5' 5.35) 03/25/2013 4:30 PM CDT Body Mass Index 32.7 03/25/2013 4:30 PM CDT documented in this encounter Plan of Treatment Not on filedocumented as of this encounter Visit Diagnoses Not on filedocumented in this encounter Additional Health Concerns Assessment Noted Time PHQ-9 Depression Total Score: 5 10/14/2012 1:41 PM FINANCIAL ANALYST ACCOUNTANT documented as of this encounter
--- OUTSIDE RECORDS SUMMARY | 2022-07-11 09:23 | XMS_ITS | Encounter Summary ---
:1990 Author Organization [facility] Address [address] [place] [address] Care Team Providers Name Role Phone Unavailable Primary Care Provider Unavailable Encounter Details Date Type Department Care Team Description 09/09/2010 Hospital Encounter HX NO MAPPING Provider, Historical Social History Tobacco Use Types Packs/Day Years Used Date Smoking Tobacco: Never Assessed Sex Assigned at Date Recorded Not on file documented as of this encounter Plan of Treatment Not on filedocumented as of this encounter Visit Diagnoses Not on filedocumented in this encounter
--- OUTSIDE RECORDS SUMMARY | 2022-07-11 09:23 | XMS_ITS | Encounter Summary ---
:1990 Author Organization [facility] Address [address] [place] [address] Care Team Providers Name Role Phone Unavailable Primary Care Provider Unavailable Encounter Details Date Type Department Care Team Description 08/15/2010 Hospital Encounter HX [facility]ILY [facility] Karlo Dawkins M.D. Social History Tobacco Use Types Packs/Day Years Used Date Smoking Tobacco: Never Assessed Sex Assigned at Date Recorded Not on file documented as of this encounter Progress Notes Rakan Dawkins M.D. - 08/15/2010 1:10 PM CST Report CLINIC NOTE [place], [place] PATIENT: [id number] NAME: YOLANDA LEONE ENCOUNTER: [id number] DATE OF : [birth year] SERVICE DATE: 08/15/10 PROVIDER: Rakan Dawkins MD LOCATION: CLINIC DESCRIPTION: RT SHOULDER PAIN/LEFT SIDE PAIN CHARGES: 69447 OFFICE/OUTPATIENT VISIT, EST DIAGNOSES: 726.0 ADHESIVE CAPSULIT SHLDER DOCUMENT TEXT: Patient Age: 20 Report Dictation DICTATED BY: Rakan Dawkins MD DATE: 08/15/2010 PLAN: I recommended rest, ice, compress, elevate, using a sling while she is not using her dominant right arm. I will get an x-ray of the right shoulder and follow up with range of motion exercises which I outlined, Naprosyn 500 twice a day with 1000 of Tylenol twice a day, Aspercreme, ice and make notes of daily progress 4 times a day, physical therapy that she does herself since she is refusing to come to physical therapy here, and then follow up with Dr. Yoo and get comparison x-rays from the chiropractor from that day. Her dad was called in, and coordination of care was from 1:00-2:00. HISTORY: Yolanda is an 20-year-old who states that she woke up about 4 months ago with a gradual onset of right shoulder pain. It has been bothering her with sleep. She has been sleeping with it under a pillow. She is questioning if there is a loose rib that a chiropractor has tried to adjust over the last 4 months, and she comes in saying it is no better. She felt that there was some swelling in the right collar bone. She is going to [place] and living in [place] and does not like to go to the clinic up there. There is a family history of cervical and ovarian cancer, but she states that she is taking medications for ADHD and is hoping to graduate now and is also taking occasionally ibuprofen which may help a little bit. Moves her neck well, denies any trauma, and states that she has been smoking since age 16, and smoking cessation was strongly urged with a variety of helps encouraged. She occasionally uses ice on this and comes in for evaluation. PHYSICAL EXAMINATION: GENERAL: Exam shows a slightly overweight white female who lives at home with her significant other. Denies any sleep apnea. She also lives with her parents, I believe a sister and another partner. MUSCULOSKELETAL: The patient has no adenopathy. She has very limited range of motion, can only get the arm up to the level of her shoulder. She can lift it straight forward and rotate it. The hands from the thumbs up and thumbs down has limited stretching with scarf sign and can reach the small of her back with the right arm. The muscle tone in the trapezius is very tender. She hardly allows me to palpate her shoulder. She has a tattoo in the area that is very tender to manipulate the trapezius in that whole area. As a matter of fact there is so much pain I cannot fully evaluate the shoulder. TCR:katelyn cc: Rooming Doc Allergies Coded Allergies: No Known Drug Intolerances (Unknown,Unknown 06/25/10) Patient History Social History Social History was reviewed and updated. Marital Status: single Occupation: STUDENT Living Arrangements: lives with father,1 brother Tobacco use or exposure? Y Type: pt is a smoker Packs per day: [id number] Cessation advise offered: Y Any use of alcohol? N Any user of caffeine? N Any recent travel? Y Travel Region(s): [place] PHQ-9 Screening Date: 06/25/10 PHQ-9 Score: 6 Surgery and Event History Tonsillectomy & Adenoidectomy, 01/30/05 Health Maint and Disease Mgmt Health Maintenance and Disease Management was reviewed. Vitals Weight: 86.4 kg Pulse: 98 Blood Pressure: 114/66 (Sitting, Left Arm) Additional Vitals Information Pain: Y (07/07) Diabetes: N Unintentional Weight Change? N Information provided by: self Target Aircraft Controller present: N Chief Complaint: right shoulder and area pain Nurse Only Documentation : REFERRAL FOR DR YOO FOR RIGHT SHOULDER PAIN Orders Medications and Procedures Prescriptions: New - Naproxen (Naprosyn) 500 MG TABLET, 08/15/10 500 Milligrams ORAL twice a day, 14 Days Tablet, Refills 1 Instructions - with food Dx - JOINT PAIN-SHLDER Acetaminophen (Tylenol Es) 500 MG TABLET, 08/15/10 1000 Milligrams ORAL twice a day, 14 Days Tablet, Refills 2 Instructions - take 2 tabs with naprosyn bid (2x/day) max dose / day is 4000mg (8 tabs) Dx - JOINT PAIN-SHLDER Active - Amphet Asp/Amphet/D-Amphet (Adderall Xr) 15 MG XR.CAP, 08/02/10 30 Milligrams ORAL every day, 30 Days Cap, Refills 0 Dx - ATTN DEFICIT W HYPERACT Reported - Medroxyprogesterone (Depo-Provera) 150 MG/ML VIAL 150 Milligrams INTRAMUSC every 12 weeks, #4 Diagnostics: Right Shoulder 4 views ( Today at [facility]Radiology) Dx - JOINT PAIN-SHLDER at 1135. [facility]: [facility] AMCHX[facility] Document Id: [id number] Electronically signed by Halle [facility] Electroless Plater [id number] at 03/01/2017 2:22 PM CDT documented in this encounter Plan of Treatment Not on filedocumented as of this encounter Procedures Procedure Name Priority Date/Time Associated Diagnosis Comme nts DX SHOULDER RIGHT Routine 08/15/2010 2:13 PM Resu lts for this 2+ VIEWS OBJECTS CONSERVATOR procedure are i n the results section. documented in this encounter Results DX Shoulder Right 2+ Views (08/15/2010 2:13 PM OBJECTS CONSERVATOR) Anatomical Region Laterality Modality Upper Extremity, Shoulder Right Radiographic I maging Specimen (Source) Anatomical Collection Method Collection Time Re ceived Time Location / / Volume Laterality 08/15/2010 2:13 PM OBJECTS CONSERVATOR Narrative 08/15/2010 2:13 PM OBJECTS CONSERVATOR Originally Signed By Contributor_system, [facility] [place] Right shoulder 4 views Indication: Pain Findings: No acute fractures or dislocat ion. The right humeral head is well-seated within the glenoid fossa. No significant degenerative changes. No bony lesions. Visualized rig ht lung is clear. Electronically Signed 08/15/2010 Reported By: Mayra Cho ?? Transcribed: 08/15/2010 ([id number]) ??[facility] [email or web address] CC: Rakan Dawkins MD Procedure Note Provider, Dg Villalba - 02/26/2017F ormatting of this note might be different from the original. Originally Signed By Contributor_system, [facility] Right shoulder 4 views Indication: Pain Findings: No acute fractures or dislocat ion. The right humeral head is well-seated within the glenoid fossa. No significant degenerative changes. No bony lesions. Visualized rig ht lung is clear. Electronically Signed 08/15/2010 Reported By: Mayra Cho Transcribed: 08/15/2010 ([id number]) [facility] [place] CC: Rakan Dawkins MD Historical Provider IMG DIAGNOSTIC IMAGING PROCE SRUTHI documented in this encounter Visit Diagnoses Not on filedocumented in this encounter
--- OUTSIDE RECORDS SUMMARY | 2022-07-11 09:23 | XMS_ITS | Encounter Summary ---
:1990 Author Organization [facility] Address [address] [place] [address] Care Team Providers Name Role Phone Unavailable Primary Care Provider Unavailable Encounter Details Date Type Department Care Team Description 11/21/2011 Hospital Encounter HX [facility] Nicolasa Toribio D.O. Social History Tobacco Use Types Packs/Day Years Used Date Smoking Tobacco: Never Assessed Sex Assigned at Date Recorded Not on file documented as of this encounter Procedure Notes Miya Reyes, L.P.N. - 11/21/2011 2:09 PM CST Depo-Provera Administration Depo-Provera Administration Entered On: 11/21/2011 14:10 CONTROL OPERATOR Performed On: 11/21/2011 14:09 CONTROL OPERATOR by MIYA REYES LPN Depo-Provera Administration Last Depo-Provera Given : 08/29/2011 CONTROL OPERATOR Return appointment : 02/11/2012 CDT Depo-Provera Administration Comments : lot#[id number] /[id number] 103.9KG MIYA REYES LPN - 11/21/2011 14:09 CONTROL OPERATOR Source: [facility] POWERCHART Document Id: [id number] CONTROL OPERATOR!5 ROL OPERATOR documented in this encounter Miscellaneous Notes Telephone Encounter - Conversion, Historical Provider Ser - 10/09/2011 12:40 PM CST Phone Message Document Contains Addenda Addendum by LENI PEREZ LPN on 09 October 2011 17:13:45 CONTROL OPERATOR see other message of today. Addendum by LAUREN CANAS MD on 09 October 2011 17:03:49 CONTROL OPERATOR From: LAUREN CANAS MD To: KEVAN Canas Nurse; Sent: 10/09/2011 17:03:49 CONTROL OPERATOR Subject: RE: Phone Message redo Addendum by LAUREN CANAS MD on 09 October 2011 16:59:48 CONTROL OPERATOR Submitted: Order Order: dextroamphetamine-amphetamine (Adderall XR 10 mg oral capsule, extended release) 1 cap(s) PO Daily AM Qty: 30 cap(s) Refills: 0 Print - [id number] Signed by LAUREN CANAS MD 10/09/2011 16:56:59 Addendum by GABY VALLADARES LPN on 09 October 2011 13:54:26 CONTROL OPERATOR From: GABY VALLADARES LPN ( Ana Nurse) To: LAUREN CANAS MD; Sent: 10/09/2011 13:54:26 CONTROL OPERATOR Subject: FW: Phone Message Addendum by STEVEN AWAD MD on 09 October 2011 13:18:49 CONTROL OPERATOR From: STEVEN AWAD MD To: KEVAN Awad Nurse; Sent: 10/09/2011 13:18:49 CONTROL OPERATOR Subject: FW: Phone Message forw to pcp or waste reduction coordinator Addendum by GABY VALLADARES LPN on 09 October 2011 12:59:28 CONTROL OPERATOR From: GABY VALLADARES LPN ( [facility] Nurse) To: STEVEN AWAD MD; Sent: 10/09/2011 12:59:28 CONTROL OPERATOR Subject: FW: Phone Message please advise Addendum by PATTI HERNANDEZ RN on 09 October 2011 12:51:29 CONTROL OPERATOR From: PATTI HERNANDEZ RN ([facility] Nurse) To: KEVAN Awad Nurse; Sent: 10/09/2011 12:51:29 CONTROL OPERATOR Subject: FW: Phone Message Pt calling---States her pharmacy, [facility] in [place] has not received adderall scrips. Please see note on 10/01, Dr. Awad printed scrips and it says they were sent to customer service. I called [facility] and they have no record of getting anything for this pt. Pt is now out of medication and is wondering if the scrips can be reprinted and sent to customer service to be mailed ot [facility] in [place]. Pt can be reached at [phone]. From: KATIE MITCHELL ([facility]) To: KEVAN VALENZUELA Nurse; Sent: 10/09/2011 12:40:52 CONTROL OPERATOR Subject: Phone Message Caller is: ( X ) Patient ( ) Mother ( ) Father ( ) Spouse ( ) Daughter ( ) Son ( ) Pharmacy ( ) Other: Physician:FLORESITA Patient MRN #: Reason for Call: Message: [...] back cell phone number ( ) Source: [facility] POWERCHART Document Id: [id number] documented in this encounter Plan of Treatment Not on filedocumented as of this encounter Visit Diagnoses Not on filedocumented in this encounter
--- OUTSIDE RECORDS SUMMARY | 2022-07-11 09:23 | XMS_ITS | Encounter Summary ---
:[address] [facility] Address [address] [place] [address] Care Team Providers Name Role Phone Unavailable Primary Care Provider Unavailable Encounter Details Date Type Department Care Team Description 05/03/2013 Hospital Encounter [facility]X [facility] Jason Orozco P.A. -C. [address] [place] [address] (Wo rk) Social History Tobacco Use Types Packs/Day Years Used Date Smoking Tobacco: Never Assessed Sex Assigned at Date Recorded Not on file documented as of this encounter Last Filed Vital Signs Vital Sign Reading Time Taken Comments Blood Pressure 90/60 05/03/2013 11:43 AM CDT Pulse 82 05/03/2013 11:43 AM CDT Temperature - - Respiratory Rate 20 05/03/2013 11:43 AM CDT Oxygen Saturation - - Inhaled Oxygen Concentration - - Weight 89.8 kg (197 lb 15.6 oz) 05/03/2013 11:43 AM CDT Height - - Body Mass Index 32.59 03/25/2013 4:30 PM CDT documented in this encounter Progress Notes Jason Orozco - 05/03/2013 11:37 AM CDT [id number] CHIEF COMPLAINT / REASON FOR VISIT I think I have a suture left from my surgery. HISTORY OF PRESENT ILLNESS The patient states that today she has been picking on her skin and she noticed a little white tail she described to me on the left side on the upper lip. She denied any fever or chills. She denied any nausea or vomiting. Denied any other concerns or problems. The patient states that she had the surgery at the end of February by Dr. Jj Mota in [place]. Please refer to EMR for vitals, medications and allergies. PHYSICAL EXAM GENERAL: This pleasant 22-year-old female in no appreciable distress. Alert and awake. Responds appropriately to auditory and visual stimuli. Examination of the skin, the patient does appear to have well healing wounds on the left side of theface and upper lip. I do appreciate a very small tail of what appears to be suture. I did apply a gentle traction on the suture. There was some resistance. I did not appreciate any fluctuant lesion in her cheek or in the mouth or in the neck. At that point, we did contact Dr. Mota's office. A phone call was placed. LUNGS: Clear to auscultation. No wheezes, rales, or rhonchi. IMPRESSION / REPORT / PLAN Follow up exam. PLAN: We did receive consultation from Dr. Mota's resident and recommendation for us was given to shorten the suture which was sticking out from the skin. The patient does have an appointment with Dr. Mota on May 09 for followup, which we did encourage her to keep and make that appointment. I did suggest that patient is to follow up sooner with someone if her symptoms get worse in any way, if she notices redness, drainage, pus or if she notices fluctuance in her cheek. We did answer all theirquestions. She is comfortable with this plan for now. We did shorten the suture. Jason Orozco P.A.-C/wolfgang Electronically Signed By: JASON OROZCO [facility] On: 05/06/2013 08:10 AM Source: [facility] MHSDOLBEYNONRADSYS Document Id: [id number] documented in this encounter Miscellaneous Notes Miscellaneous - Jason Orozco - 05/03/2013 5:17 PM CDT School or Work Excuse School or Work Excuse Entered On: 05/03/2013 17:18 CDT Performed On: 05/03/2013 17:17 CDT by JASON OROZCO School or Work Excuse Date Patient Seen : 05/03/2013 CDT School or Work Restrictions : No Restrictions School Med Procedure Form Completed : N/A Date of Return to School/Work Without Restrictions : 05/03/2013 CDT Comment : please call with questions JASON OROZCO - 05/03/2013 17:17 CDT [facility]: [facility] Document Id: [id number] CDT!7 Miscellaneous - Jason Orozco - 05/03/2013 4:03 PM CDT Ambulatory Patient Summary [address] [address] Visit Information Name: YOLANDA LEONE [facility] Number: [id number] Current Date: 05/03/2013 16:03:55 Physicians Attending Provider: JASON OROZCO Primary Care Provider: PCP, UNASSIGNED - OW Your Medications Here is a list of your medications. It is important to take your medications as directed. Use a pillbox or chart to help remind you to take your medications. Please let your doctor or nurse know if you have problems taking your medications. Medication/Strength Dose Route Frequency Indications/Special Instructions/Comments/Notes *amoxicillin-clavulanate (Augmentin 500 mg-125 mg oral tablet) 1 tab(s) Oral three times a day for 10 Days dextroamphetamine-amphetamine (Adderall XR 30 mg oral capsule, extended release) 30 mg Oral once a day (in the morning) medroxyPROGESTERone (Depo-Provera) 150 mg Intramuscular once Missed last Depo 01/06/11. Gave Depo today and had her schedule for annual exam * You have let us know that you are not taking this medication as listed. Please talk with your primary care provider or the health care provider who prescribed the medication as soon as possible. Attention: If you have any medications at [...] Upcoming Appointments Date Time Location Reason Provider 06/27/2013 15:15 [facility] DIRECTOR PLANS Depo shot [address] DESOUZA [facility] DIRECTOR PLANS Nurse 10/18/2013 09:35 [facility] DIRECTOR PLANS electrical plumbing supervisor exam Nicolasa Desouza DO Your Goals/Additional instructions: Source: [facility] POWERCHART Document Id: [id number] Miscellaneous - Jason Orozco - 05/03/2013 4:03 PM CDT Ambulatory Depart Summary [address] [address] Visit Information Name: SULEMAYOLANDA [facility] Number: [id number] Visit Date: 05/03/2013 16:03:54 Attending Provider: JASON OROZCO Primary Care Provider: PCP, UNASSIGNED - OW SULEMA YOLANDA GREENFIELD has been given the following list of medications: Your Medications It is important to take your medications as directed. Use a pill box or chart to help remind you to take your medications. Please let your doctor or nurse know if you have problems taking your medications. Medication/Strength Dose Route Frequency Indications/Special Instructions/Comments/Notes *amoxicillin-clavulanate (Augmentin 500 mg-125 mg oral tablet) 1 tab(s) Oral three times a day for 10 Days dextroamphetamine-amphetamine (Adderall XR 30 mg oral capsule, extended release) 30 mg Oral once a day (in the morning) medroxyPROGESTERone (Depo-Provera) 150 mg Intramuscular once Missed last Depo 01/06/11. Gave Depo today and had her schedule for annual exam * You have let us know that you are not taking this medication as listed. Please talk with your primary care provider or the health care provider who prescribed the medication as soon as possible. Attention: If you have any medications at home that are not on this list, DO NOT take them until youcontact your provider for clarification. Additional Information: Source: [facility] POWERCHART Document Id: [id number] Miscellaneous - Joao Doan L.P.N. - 05/03/2013 11:43 AM CDT Adult Special Events Fundraiser Intake/History Adult Special Events Fundraiser Intake/History Entered On: 05/03/2013 11:47 CDT Performed On: 05/03/2013 11:43 CDT by JOAO DOAN Intake Chief Complaint : thinks she has a stich left in her upper lip from previous surgery. Temperature Oral : 37.1 DegC(Converted to: 98.8 DegF) Peripheral Pulse Rate : 82 /min Respiratory Rate : 20 /min Systolic Blood Pressure : 90 mmHg (LOW) Diastolic Blood Pressure : 60 mmHg NIBP Mean : 70 mmHg BP Location : Right upper extremity Blood Pressure Cuff Size : Regular Actual Weight : 89.8 kg(Converted to: 198 lb 0 oz) Dosing Weight Clinic : 89.8 kg JOAO DOAN - 05/03/2013 11:43 CDT General Info Information Given By : Patient Preferred Communication Mode : Verbal Languages : Irish JOAO DOAN - 05/03/2013 11:43 CDT Subjective Pain Symptoms : No JOAO DOAN 05/03/2013 11:43 CDT Dependent Habits Tobacco Use/Currently Using : Yes Exposure to Tobacco Smoke : Patient smokes Smoking Status : Current every day smoker JOAO DOAN - 05/03/2013 11:43 CDT Tobacco Use Grid Cigarette Use Packs/Day : 0.5 JOAO DOAN 05/03/2013 11:43 CDT Caffeine Use Grid Caffeine Use : Current Type : Soft drinks Frequency : Occasionally JOAO DOAN 05/03/2013 11:43 CDT Recreational Drug Use Grid Frequency : Occasionally JOAO DOAN 05/03/2013 11:43 CDT Source: [facility] POWERCHART Document Id: [id number] CDT!34 documented in this encounter Plan of Treatment Not on filedocumented as of this encounter Visit Diagnoses Not on filedocumented in this encounter Additional Health Concerns Assessment Noted Time PHQ-9 Depression Total Score: 5 10/14/2012 1:41 PM TRAFFIC CONTROL SPECIALIST documented as of this encounter
--- OUTSIDE RECORDS SUMMARY | 2022-07-11 09:23 | XMS_ITS | Encounter Summary ---
:1990 Author Organization [facility] Address [address] [place] [address] Care Team Providers Name Role Phone Unavailable Primary Care Provider Unavailable Encounter Details Date Type Department Care Team Description 08/20/2010 Hospital Encounter HX [facility] Jayson Yoo M.D. Social History Tobacco Use Types Packs/Day Years Used Date Smoking Tobacco: Never Assessed Sex Assigned at Date Recorded Not on file documented as of this encounter Progress Notes Jayson Yoo M.D. - 08/20/2010 9:00 AM CST Report CLINIC NOTE [place], [place] PATIENT: [id number] NAME: YOLANDA LEONE ENCOUNTER: [id number] DATE OF : [birth year] SERVICE DATE: 08/20/10 PROVIDER: Jayson Yoo MD LOCATION: CLINIC DESCRIPTION: RT SHOULDER PAIN CHARGES: 81269 OFFICE/OUTPATIENT VISIT, NEW DIAGNOSES: 719.41 JOINT PAIN-SHLDER DOCUMENT TEXT: Patient Age: 20 Report Dictation DICTATED BY: Jayson Yoo MD DATE: 08/20/2010 IMPRESSION: 1. Right subacromial impingement with significant parascapular and upper trapezial myofascial pain. 2. Right scapulothoracic mild dyskinesis. PLAN: Discussed this in detail with the patient. The patient has significant shoulder pain, but I believe it is functional versus structural. Will try ibuprofen 800 mg 3 times a day for 7 to 10 days and then just as needed. She is to take this with food. She has tried ibuprofen before and has had no allergic reaction to it. Will use contrast cooling and heating of the shoulder. We will have her see our physical therapist. She would like to see them at [place]. We will work on range of motion exercises, scapular stabilization exercises, rotator strengthening exercises. We will see how she is doing over the next 3 to 4 weeks. If she is really not making any progress, then I certainly could see her back at that time. I did spend 45 minutes with the patient today, which the majority of this was counseling. PATIENT EDUCATION: Ready to learn, no apparent learning barriers were identified; learning preferences include listening. Explained diagnosis and treatment plan; patient expressed understanding of the content. CHIEF COMPLAINT: Right shoulder pain. HISTORY OF PRESENT ILLNESS: The patient is an 20-year-old female who is referred by Dr. Dawkins for right shoulder pain that started in April. She does not recall any specific trauma. She states she [place] and felt some pain in the lateral aspect of the shoulder. Since then, she has had increasing shoulder pain which she describes as being in the subacromial region and then this developed into upper trapezial and medial parascapular border pain. She feels as though when she lays on her belly, the right scapular sticks up a little more than the left. She notices increased pain with abduction and pain at night. She describes the pain is deep and achy around the upper trapezius and the medial parascapular musculature. Some sharp pain laterally. Some pain along the clavicle as well. She does have some on and off/intermittent pain in the upper arm as well. She has not noticed much in way of weakness. She feels some numbness and tingling in the upper arm. Feels as though there is some clicking in the shoulder as well. No locking of the joint. She really has not noticed decreased range of motion. She had tried naproxen but had allergy to this. She had seen her chiropractor who tried to manipulate her rib and caused more pain for her. She has not noticed any true radicular features. REVIEW OF SYSTEMS: She denies any fevers, chills or rashes. No shortness of breath, leg swelling, gastrointestinal symptoms. The patient does smoke. She is nondiabetic. She rates her pain 9 to 10 out of 10. PHYSICAL EXAMINATION: A pleasant female in no acute distress. Examination of her neck shows normal range of motion that is pain free. Negative Spurling test. Examination of scapula, she has a mild right scapulothoracic dyskinesis. I am unable to see any significant dynamic winging of the shoulder. At rest of her scapula appears normal. Examination of the shoulder, she is diffusely tender, but more tender in the upper trapezial area and the medial scapular border. Minimal tenderness over the AC joint. Some tenderness in the subacromial region. Some diffuse tenderness laterally. Elbow is normal. Distal pulses normal. Sensation in the upper extremity is normal. Her plain film of the shoulder really shows no significant abnormalities. KARIME:shaun cc: Rooming Doc Allergies Coded Allergies: No Known Drug Intolerances (Unknown,Unknown 08/20/10) Patient History Social History Marital Status: single Occupation: STUDENT Living Arrangements: lives with father,1 brother Tobacco use or exposure? Y Type: pt is a smoker Packs per day: [id number] Cessation advise offered: Y Any use of alcohol? N Any user of caffeine? N Any recent travel? Y Travel Region(s): [place] PHQ-9 Screening Date: 06/25/10 PHQ-9 Score: 6 Surgery and Event History Tonsillectomy & Adenoidectomy, 01/30/05 Vitals Additional Vitals Information Pain: Y (06/07) Diabetes: N Chief Complaint: RT SHOULDER PAIN, ONGOING FOR 4 MONTHS. SMOKES. Orders Medications and Procedures Prescriptions: New - Ibuprofen (Motrin) 800 MG TABLET, 08/20/10 800 Milligrams ORAL every 8 hours as needed, #60 Tablet, Refills 0 Instructions - TAKE WITH FOOD FOR 7-10 THEN JUST NEEDED Dx - JOINT PAIN-SHLDER Active - Naproxen (Naprosyn) 500 MG TABLET, 08/15/10 500 Milligrams ORAL twice a day, 14 Days Tablet, Refills 1 Dx - JOINT PAIN-SHLDER Acetaminophen (Tylenol Es) 500 MG TABLET, 08/15/10 1000 Milligrams ORAL twice a day, 14 Days Tablet, Refills 2 Dx - JOINT PAIN-SHLDER Amphet Asp/Amphet/D-Amphet (Adderall Xr) 15 MG XR.CAP, 08/02/10 30 Milligrams ORAL every day, 30 Days Cap, Refills 0 Dx - ATTN DEFICIT W HYPERACT Reported - Medroxyprogesterone (Depo-Provera) 150 MG/ML VIAL 150 Milligrams INTRAMUSC every 12 weeks, #4 at 1647. Source: [facility] Document Id: [id number] documented in this encounter Plan of Treatment Not on filedocumented as of this encounter Visit Diagnoses Not on filedocumented in this encounter
--- OUTSIDE RECORDS SUMMARY | 2022-07-11 09:23 | XMS_ITS | Encounter Summary ---
:1990 Author Organization [facility] Address [address] [place] [address] Care Team Providers Name Role Phone Unavailable Primary Care Provider Unavailable Encounter Details Date Type Department Care Team Description 01/04/2013 Hospital Encounter HX [facility] Germán Desouza D.O. Social [...] - Inhaled Oxygen Concentration - - Weight 97.8 kg (215 lb 9.8 oz) 01/04/2013 1:25 PM CDT Height - - Body Mass Index 35.49 11/03/2012 2:13 PM TRANS ROUTER documented in this encounter Progress Notes Germán Desouza DRaji. - 01/04/2013 1:00 PM CDT [id number] The patient is a 22-year-old 0 female who presents today for a Depo- Provera injection for control, but she states that she had been intimate with a person who had had an STD approximately6 months ago. She thinks he has been treated, but wants to be tested. Medications are Depo. Allergicto naproxen. PHYSICAL EXAMINATION VITAL SIGNS: Her weight today is 97.8 kg. GENITOURINARY: The external female genitalia is felt to be with normal limits. [place] and [place] glands were normal. Vagina is pink. Normal rugae. Cervix is nulliparous. GC and chlamydia cultures areobtained. Vaginosis panel is obtained. IMPRESSION/REPORT/PLAN Sexually transmitted disease check. PLAN: We will recheck the patient on a p.r.n. basis. Germán Desouza D.O./less Electronically Signed By: GERMÁN DESOUZA DO On: 01/10/2013 10:41 AM [facility] Document Id: [id number] documented in this encounter Procedure Notes Ochoa Reyes L.P.N. - 01/04/2013 1:26 PM CDT Depo-Provera Administration Depo-Provera Administration Entered On: 01/04/2013 13:27 CDT Performed On: 01/04/2013 13:26 CDT by OCHOA REYES LPN Depo-Provera Administration Last Depo-Provera Given : 01/04/2013 CDT Return appointment : 03/25/2013 CDT Depo-Provera Administration Comments : lot# [id number] OCHOA REYES LPN - 01/04/2013 13:26 CDT Source: [facility] POWERCHART Document Id: [id number] CDT!5 documented in this encounter Miscellaneous Notes Miscellaneous - Germán Desouza D.O. - 01/05/2013 12:00 AM CDT [id number] YOLANDA [place] READ January 05, [address] [place] [address] Dear Yolanda: I received the report of you GC and chlamydia. They were both negative. If you have any questions, please feel free to contact us. Sincerely, Germán Desouza D.O. Department of Obstetrics & Gynecology fmf Electronically Signed By: GERMÁN DESOUZA DO On: 01/06/2013 07:55 AM Source: [facility] Document Id: [id number] Patricia - Germán Desouza D.O. - 01/04/2013 1:33 PM CDT Ambulatory Depart Summary [place] [address] [place] [address] Visit Information Name: YOLANDA LEONE [facility] Number: [id number] Visit Date: 01/04/2013 13:33:06 Attending Provider: GERMÁN DESOUZA DO Primary Care Provider: EDWARDO CONTRERAS [facility] YOLANDA LEONE has been given the following list of medications: Your Medications It is important to take your medications as directed. Use a pill box or chart to help remind you to take your medications. Please let your doctor or nurse know if you have problems taking your medications. Medication/Strength Dose Route Frequency Indications/Special Instructions/Comments dextroamphetamine-amphetamine (Adderall XR 30 mg oral capsule, extended release) 30 mg Oral once a day (in the morning) *neomycin/polymyxin B/hydrocortisone otic (Cortisporin Otic suspension) See Instructions 4 drops to affected ear (s) QID until resolved. *cholecalciferol (Vitamin D3 1000 intl units oral tablet) 1,000 IntU Oral once a day medroxyPROGESTERone (Depo-Provera) 150 mg Intramuscular once Missed [...] your provider for clarification. Additional Information: Source: [facility] POWERCHART Document Id: [id number] Patricia - Germán Desouza D.O. - 01/04/2013 1:33 PM CDT Ambulatory Patient Summary [facility] [address] [place] [address] Visit Information Name: YOLANDA LEONE [facility] Number: [id number] Current Date: 01/04/2013 13:33:07 Physicians Attending Provider: GERMÁN DESOUZA DO Primary Care Provider: EDWARDO CONTRERAS [facility] Your Medications Here is a list of your medications. It is important to take your medications as directed. Use a pillbox or chart to help remind you to take your medications. Please let your doctor or nurse know if you have problems taking your medications. Medication/Strength Dose Route Frequency Indications/Special Instructions/Comments dextroamphetamine-amphetamine (Adderall XR 30 mg oral capsule, extended release) 30 mg Oral once a day (in the morning) *neomycin/polymyxin B/hydrocortisone otic (Cortisporin Otic suspension) See Instructions 4 drops to affected ear (s) QID until resolved. *cholecalciferol (Vitamin D3 1000 intl units oral tablet) 1,000 IntU Oral once a day medroxyPROGESTERone (Depo-Provera) 150 mg Intramuscular once Missed [...] Upcoming Appointments Date Time Location Reason Provider 10/18/2013 09:35 [facility] [employer] gynaecological oncologist exam Germán Desouza DO Your Goals/Additional instructions: Source: [facility] POWERCHART Document Id: [id number] Miscellaneous - Retterath, Ochoa Gonzalez L.P.N. - 01/04/2013 1:25 PM CDT Adult Molecular Genetic Pathologist Intake/History Document Has Been Updated Adult Molecular Genetic Pathologist Intake/History Entered On: 01/04/2013 13:25 CDT Performed On: 01/04/2013 13:25 CDT by OCHOA REYES LPN Intake Chief Complaint : depo and std/grava 0 Actual Weight : 97.8 kg(Converted to: 215 lb 10 oz) Dosing Weight Clinic : 97.8 kg OCHOA REYES LPN - 01/04/2013 13:25 CDT General Info Information Given By : Patient Languages : Eritrean OCHOA REYES LPN - 01/04/2013 13:25 CDT Subjective Pain Symptoms : No OCHOA REYES LPN - 01/04/2013 13:25 CDT Dependent Habits Tobacco Use/Currently Using : Yes Exposure to Tobacco Smoke : Patient smokes Smoking Status : Current every day smoker OCHOA REYES LPN - 01/04/2013 13:25 CDT Tobacco Use Grid Cigarette Use Packs/Day : 0.5 OCHOA REYES LPN - 01/04/2013 13:25 CDT Caffeine Use Grid Caffeine Use : Current Type : Soft drinks Frequency : Occasionally OCHOA REYES LPN - 01/04/2013 13:25 CDT Recreational Drug Use Grid Frequency : Occasionally OCHOA REYES LPN - 01/04/2013 13:25 CDT Source: [facility] POWERCHART Document Id: [id number] CDT!4 Miscellaneous - Germán Desouza D.O. - 01/04/2013 12:00 AM CDT [id number] YOLANDA [place] READ January 04, 2013 [address] [place] [address] Dear Yolanda: I received the report of your vaginosis panel. It is negative for trichomonas bacterial vaginosis and yeast. If you have any questions, please feel free to contact us. Sincerely, Germán Desouza D.O. Department of Obstetrics & Gynecology ksw Electronically Signed By: GERMÁN DESOUZA DO On: 01/04/2013 05:20 PM Source: [facility] TRAN Document Id: [id number] documented in this encounter Plan of Treatment Not on filedocumented as of this encounter Procedures Procedure Name Priority Date/Time Associated Comments Diagnosis VAGINITIS BATTERY, Routine 01/04/2013 1:30 PM Res ults for this DNA (GENITAL) CDT procedure are in the results section. CHLAMYDIA/GONORRHOEAE Routine 01/04/2013 1:30 PM Results for this AMPLIFIED RNA CDT procedure are in the results section. CHLAMYDIA TRACHOMATIS Routine 01/04/2013 1:30 PM Results for this AMPLIFIED RNA CDT procedure are in the results section. documented in this encounter Results Chlamydia / Gonorrhoeae Amplified RNA (01/04/2013 1:30 PM CDT) Component Value Ref Test Analysis Performed At Local Reputation Range Method Time Signature HX GC by Nucleic POWERCHART Acid Amplification HXFinal Negative for POWERCHART Neisseria gonorrhea by DNA amplification . HXFinal Reference: POWERCHART Negative Specimen (Source) Anatomical Collection Method Collection Time Re ceived Time Location / / Volume Laterality Cervix/Endocervix 01/04/2013 1:30 PM CDT Germán Desouza D.O. LAB MICROBIOLOGY - GENERAL O RDERABLES Performing Organization Address City/State/[facility] Code Phon e Number POWERCHART Chlamydia Trachomatis Amplified RNA (01/04/2013 1:30 PM CDT) Component Value Ref Test Analysis Performed At [facility] [employer] Range Method Time Signature HXChlamydia by POWERCHART Nucleic Acid Amplification HXFinal Negative for POWERCHART Chlamydia trachomatis by DNA amplification. HXFinal Reference: POWERCHART Negative Specimen (Source) Anatomical Collection Method Collection Time Re ceived Time Location / / Volume Laterality Cervix/Endocervix 01/04/2013 1:30 PM CDT Germán Desouza D.O. LAB MICROBIOLOGY - GENERAL O RDERABLES Performing Organization Address City/State/ZIP Code Phon e Number POWERCHART VAGINITIS BATTERY, DNA (GENITAL) (01/04/2013 1:30 PM CDT) Component Value Ref Test Analysis Performed At [facility] gist Range Method Time Signature HXVaginitis POWERCHART Battery, DNA (Genital) HXFinal Trichomonas POWERCHART vaginalis DNA negative HXFinal Gardnerella POWERCHART vaginalis DNA negative HXFinal Katie species POWERCHART DNA negative HXFinal Reference: POWERCHART Negative Specimen (Source) Anatomical Collection Method Collection Time Re ceived Time Location / / Volume Laterality Vagina 01/04/2013 1:30 PM CDT Germán Desouza D.O. LAB HISTORICAL ORDERS Performing Organization Address City/State/ZIP Code Phon e Number POWERCHART documented in this encounter Visit Diagnoses Not on filedocumented in this encounter Additional Health Concerns Assessment Noted Time PHQ-9 Depression Total Score: 5 10/14/2012 1:41 PM TRANS ROUTER documented as of this encounter
--- OUTSIDE RECORDS SUMMARY | 2022-07-11 09:24 | XMS_ITS | Encounter Summary ---
:1990 Author Organization [facility] Address [address] [place] [address] Care Team Providers Name Role Phone Unavailable Primary Care Provider Unavailable Encounter Details Date Type Department Care Team Description 02/03/2010 Hospital Encounter HX NO MAPPING Antonio Urbano M.D. [address] [phone] (Wo rk) Social History Tobacco Use Types Packs/Day Years Used Date Smoking Tobacco: Never Assessed Sex Assigned at Date Recorded Not on file documented as of this encounter Plan of Treatment Not on filedocumented as of this encounter Visit Diagnoses Not on filedocumented in this encounter
--- OUTSIDE RECORDS SUMMARY | 2022-07-11 09:24 | XMS_ITS | Encounter Summary ---
:1990 Author Organization [facility] Address [address] [place] [address] Care Team Providers Name Role Phone Unavailable Primary Care Provider Unavailable Encounter Details Date Type Department Care Team Description 04/29/2010 Hospital Encounter HX [facility] Nicolasa Desouza D.O. Social History Tobacco Use Types Packs/Day Years Used Date Smoking Tobacco: Never Assessed Sex Assigned at Date Recorded Not on file documented as of this encounter Plan of Treatment Not on filedocumented as of this encounter Visit Diagnoses Not on filedocumented in this encounter
--- OUTSIDE RECORDS SUMMARY | 2022-07-11 09:24 | XMS_ITS | Encounter Summary ---
:1990 Author Organization [facility] Address [address] [place] [address] Care Team Providers Name Role Phone Unavailable Primary Care Provider Unavailable Encounter Details Date Type Department Care Team Description 02/03/2010 Hospital Encounter HX NO MAPPING Antonio Urbano M.D. [address] [phone] (Wo rk) Social History Tobacco Use Types Packs/Day Years Used Date Smoking Tobacco: Never Assessed Sex Assigned at Date Recorded Not on file documented as of this encounter Plan of Treatment Not on filedocumented as of this encounter Visit Diagnoses Not on filedocumented in this encounter
--- OUTSIDE RECORDS SUMMARY | 2022-07-11 09:24 | XMS_ITS | Encounter Summary ---
:1990 Author Organization [facility] Address [address] [place] [address] Care Team Providers Name Role Phone Unavailable Primary Care Provider Unavailable Encounter Details Date Type Department Care Team Description 12/05/2009 Hospital Encounter HX [facility] Ashley Doyle M.D. Social History Tobacco Use Types Packs/Day Years Used Date Smoking Tobacco: Never Assessed Sex Assigned at Date Recorded Not on file documented as of this encounter Progress Notes Ashley Jimenez M.D. - 12/05/2009 12:30 PM CST Report [place], [place] PATIENT: [id number] NAME: YOLANDA LEONE ENCOUNTER: [id number] DATE OF : [birth year] SERVICE DATE: 12/05/09 PROVIDER: Ashley Jimenez MD LOCATION: CLINIC DESCRIPTION: DEPO SHOT DR SNOW PT CHARGES: 07041 INJECTION SUBCU/IM J1055 DEPO PROVERA, 150 MG CONTRACEPTIVE DIAGNOSES: V25.49 CONTRACEPT SURVEILL NEC Source: [facility] AMCHXTRANSXSYS Document Id: [id number] documented in this encounter Plan of Treatment Not on filedocumented as of this encounter Visit Diagnoses Not on filedocumented in this encounter
--- OUTSIDE RECORDS SUMMARY | 2022-07-11 09:24 | XMS_ITS | Encounter Summary ---
:1990 Author Organization [facility] Address [address] [place] [address] Care Team Providers Name Role Phone Unavailable Primary Care Provider Unavailable Encounter Details Date Type Department Care Team Description 03/22/2010 Hospital Encounter HX [facility] Nicolasa Desouza D.O. Social History Tobacco Use Types Packs/Day Years Used Date Smoking Tobacco: Never Assessed Sex Assigned at Date Recorded Not on file documented as of this encounter Plan of Treatment Not on filedocumented as of this encounter Visit Diagnoses Not on filedocumented in this encounter
--- OUTSIDE RECORDS SUMMARY | 2022-07-11 09:24 | XMS_ITS | Encounter Summary ---
:1990 Author Organization [facility] Address [address] [place] [address] Care Team Providers Name Role Phone Unavailable Primary Care Provider Unavailable Encounter Details Date Type Department Care Team Description 12/05/[address] [facility] Nicolasa Toribio D.O. Social History Tobacco Use Types Packs/Day Years Used Date Smoking Tobacco: Never Assessed Sex Assigned at Date Recorded Not on file documented as of this encounter Plan of Treatment Not on filedocumented as of this encounter Visit Diagnoses Not on filedocumented in this encounter
--- OUTSIDE RECORDS SUMMARY | 2022-07-11 09:24 | XMS_ITS | Encounter Summary ---
:1990 Author Organization [facility] Address [address] [place] [address] Care Team Providers Name Role Phone Unavailable Primary Care Provider Unavailable Encounter Details Date Type Department Care Team Description 04/29/2010 Hospital Encounter HX [facility] Nicolasa Toribio D.O. Social History Tobacco Use Types Packs/Day Years Used Date Smoking Tobacco: Never Assessed Sex Assigned at Date Recorded Not on file documented as of this encounter Plan of Treatment Not on filedocumented as of this encounter Visit Diagnoses Not on filedocumented in this encounter
--- OUTSIDE RECORDS SUMMARY | 2022-07-11 09:24 | XMS_ITS | Encounter Summary ---
:1990 Author Organization [facility] Address [address] [place] [address] Care Team Providers Name Role Phone Unavailable Primary Care Provider Unavailable Encounter Details Date Type Department Care Team Description 02/28/2010 Hospital Encounter HX [facility] [place] Karlo Dawkins M.D. Social History Tobacco Use Types Packs/Day Years Used Date Smoking Tobacco: Never Assessed Sex Assigned at Date Recorded Not on file documented as of this encounter Plan of Treatment Not on filedocumented as of this encounter Visit Diagnoses Not on filedocumented in this encounter
--- OUTSIDE RECORDS SUMMARY | 2022-07-11 09:25 | XMS_ITS | Encounter Summary ---
:1990 Author Organization [facility] Address [address] [place] [address] Care Team Providers Name Role Phone Unavailable Primary Care Provider Unavailable Encounter Details Date Type Department Care Team Description 10/24/2008 Hospital Encounter HX [facility] Nicolasa Toribio D.O. Social History Tobacco Use Types Packs/Day Years Used Date Smoking Tobacco: Never Assessed Sex Assigned at Date Recorded Not on file documented as of this encounter Plan of Treatment Not on filedocumented as of this encounter Visit Diagnoses Not on filedocumented in this encounter
--- OUTSIDE RECORDS SUMMARY | 2022-07-11 09:25 | XMS_ITS | Encounter Summary ---
:[address] [facility] Address [address] [place] [address] Care Team Providers Name Role Phone Unavailable Primary Care Provider Unavailable Encounter Details Date Type Department Care Team Description 10/25/2008 Hospital Encounter HX [facility] Kacie Lanier APRN, C.N.P. Social History Tobacco Use Types Packs/Day Years Used Date Smoking Tobacco: Never Assessed Sex Assigned at Date Recorded Not on file documented as of this encounter Plan of Treatment Not on filedocumented as of this encounter Visit Diagnoses Not on filedocumented in this encounter
--- OUTSIDE RECORDS SUMMARY | 2022-07-11 09:25 | XMS_ITS | Encounter Summary ---
:1990 Author Organization [facility] Address [address] [place] [address] Care Team Providers Name Role Phone Unavailable Primary Care Provider Unavailable Encounter Details Date Type Department Care Team Description 08/14/2009 Hospital Encounter [facility] Wendy Montoya, TrangAMayur [address] [place] [address] (Wo rk) Social History Tobacco Use Types Packs/Day Years Used Date Smoking Tobacco: Never Assessed Sex Assigned at Date Recorded Not on file documented as of this encounter Plan of Treatment Not on filedocumented as of this encounter Visit Diagnoses Not on filedocumented in this encounter
--- OUTSIDE RECORDS SUMMARY | 2022-07-11 09:25 | XMS_ITS | Encounter Summary ---
:1990 Author Organization [facility] Address [address] [place] [address] Care Team Providers Name Role Phone Unavailable Primary Care Provider Unavailable Encounter Details Date Type Department Care Team Description 08/22/2008 Hospital Encounter HX [facility] Conchis Grace, C.N.P., R.N. [address] [place], [place] [address] (Wo rk) Social History Tobacco Use Types Packs/Day Years Used Date Smoking Tobacco: Never Assessed Sex Assigned at Date Recorded Not on file documented as of this encounter Plan of Treatment Not on filedocumented as of this encounter Procedures Procedure Name Priority Date/Time Associated Diagnosis Comme nts DX KNEE RIGHT 1 Routine 08/22/2008 3:26 PM Result s for this VIEW LOOM FIXER APPRENTICE procedure are i n the results section. documented in this encounter Results DX Knee Right 1 View (08/22/2008 3:26 PM LOOM FIXER APPRENTICE) Anatomical Region Laterality Modality Lower Extremity, Knee Right Radiographic Imagi ng Specimen (Source) Anatomical Collection Method Collection Time Re ceived Time Location / / Volume Laterality 08/22/2008 3:26 PM LOOM FIXER APPRENTICE Narrative 08/22/2008 3:26 PM LOOM FIXER APPRENTICE Originally Signed By Contributor_system, [facility] Exam: Right knee series Indication: Joint pain. Impression: No prior studies are availab le for comparison. Joint spaces are satisfactorily preserved. No evidence of fracture or dislocation. Electronically Signed 08/23/2008 Reported By: Jaxon Caballero ? Transcribed: 08/23/2008 (1001) ??[email or web address] CC: MS Janell Pacheco Maximilian TICKET ATTENDANT Procedure Note Provider, Dg Villalba - 03/03/2017F ormatting of this note might be different from the original. Originally Signed By Contributor_system, [facility] Exam: Right knee series Indication: Joint pain. Impression: No prior studies are availab le for comparison. Joint spaces are satisfactorily preserved. No evidence of fracture or dislocation. Electronically Signed 08/23/2008 Reported By: Jaxon Caballero MD Transcribed: 08/23/2008 (1001) [email or web address] CC: MS Janell Yao CNP Historical Provider IMG DIAGNOSTIC IMAGING PROCE DURES documented in this encounter Visit Diagnoses Not on filedocumented in this encounter
--- OUTSIDE RECORDS SUMMARY | 2022-07-11 09:25 | XMS_ITS | Encounter Summary ---
:[address] [facility] Address [address] [place] [address] Care Team Providers Name Role Phone Unavailable Primary Care Provider Unavailable Encounter Details Date Type Department Care Team Description 04/03/2009 Hospital Encounter HX [facility] OBNicolasa Hawkins D.O. Social History Tobacco Use Types Packs/Day Years Used Date Smoking Tobacco: Never Assessed Sex Assigned at Date Recorded Not on file documented as of this encounter Progress Notes Nicolasa Desouza D.O. 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
--- OUTSIDE RECORDS SUMMARY | 2022-07-11 09:25 | XMS_ITS | Encounter Summary ---
:1990 Author Organization [facility] Address [address] [place] [address] Care Team Providers Name Role Phone Unavailable Primary Care Provider Unavailable Encounter Details Date Type Department Care Team Description 10/24/2008 Hospital Encounter HX NO MAPPING Kacie Mares APRN, C.N.P. Social History Tobacco Use Types Packs/Day Years Used Date Smoking Tobacco: Never Assessed Sex Assigned at Date Recorded Not on file documented as of this encounter Plan of Treatment Not on filedocumented as of this encounter Visit Diagnoses Not on filedocumented in this encounter
--- OUTSIDE RECORDS SUMMARY | 2022-07-11 09:25 | XMS_ITS | Encounter Summary ---
:1990 Author Organization [facility] Address [address] [place] [address] Care Team Providers Name Role Phone Unavailable Primary Care Provider Unavailable Encounter Details Date Type Department Care Team Description 09/11/2009 Hospital Encounter HX [facility] Nicolasa Desouza D.O. Social History Tobacco Use Types Packs/Day Years Used Date Smoking Tobacco: Never Assessed Sex Assigned at Date Recorded Not on file documented as of this encounter Progress Notes Nicolasa Desouza D.O. - 09/11/2009 12:30 PM CST Report [place], [place] PATIENT: [id number] NAME: YOLANDA LEONE ENCOUNTER: [id number] DATE OF : [birth year] SERVICE DATE: 09/11/09 PROVIDER: Nicolasa Desouza DO LOCATION: CLINIC DESCRIPTION: DEPO COME 330 CHARGES: 28252 INJECTION SUBCU/IM J1055 DEPO PROVERA, 150 MG CONTRACEPTIVE DIAGNOSES: V25.49 CONTRACEPT SURVEILL NEC Source: [facility] AMCHXTRANSXSYS Document Id: [id number] documented in this encounter Plan of Treatment Not on filedocumented as of this encounter Visit Diagnoses Not on filedocumented in this encounter
--- OUTSIDE RECORDS SUMMARY | 2022-07-11 09:25 | XMS_ITS | Encounter Summary ---
:1990 Author Organization [facility] Address [address] [place] [address] Care Team Providers Name Role Phone Unavailable Primary Care Provider Unavailable Encounter Details Date Type Department Care Team Description 10/25/2008 Hospital Encounter HX NO MAPPING Kacie Mares APRN, C.N.P. Social History Tobacco Use Types Packs/Day Years Used Date Smoking Tobacco: Never Assessed Sex Assigned at Date Recorded Not on file documented as of this encounter Plan of Treatment Not on filedocumented as of this encounter Visit Diagnoses Not on filedocumented in this encounter
--- OUTSIDE RECORDS SUMMARY | 2022-07-11 09:25 | XMS_ITS | Encounter Summary ---
:1990 Author Organization [facility] Address [address] [place] [address] Care Team Providers Name Role Phone Unavailable Primary Care Provider Unavailable Encounter Details Date Type Department Care Team Description 01/12/2009 Hospital Encounter HX [facility] Nicolasa Toribio D.O. Social History Tobacco Use Types Packs/Day Years Used Date Smoking Tobacco: Never Assessed Sex Assigned at Date Recorded Not on file documented as of this encounter Plan of Treatment Not on filedocumented as of this encounter Visit Diagnoses Not on filedocumented in this encounter
--- OUTSIDE RECORDS SUMMARY | 2022-07-11 09:25 | XMS_ITS | Encounter Summary ---
:1990 Author Organization [facility] Address [address] [place] [address] Care Team Providers Name Role Phone Unavailable Primary Care Provider Unavailable Encounter Details Date Type Department Care Team Description 09/15/2008 Hospital Encounter HX [facility] Ike Webb ED, M.D. Social History Tobacco Use Types Packs/Day Years Used Date Smoking Tobacco: Never Assessed Sex Assigned at Date Recorded Not on file documented as of this encounter Plan of Treatment Not on filedocumented as of this encounter Visit Diagnoses Not on filedocumented in this encounter
--- OUTSIDE RECORDS SUMMARY | 2022-07-11 09:25 | XMS_ITS | Encounter Summary ---
:1990 Author Organization [facility] Address [address] [place] [address] Care Team Providers Name Role Phone Unavailable Primary Care Provider Unavailable Encounter Details Date Type Department Care Team Description 10/25/2008 Hospital Encounter HX [facility] Anibal Kim M.D. 200 [place], [place] [phone] (Wo rk) Social History Tobacco Use Types Packs/Day Years Used Date Smoking Tobacco: Never Assessed Sex Assigned at Date Recorded Not on file documented as of this encounter Plan of Treatment Not on filedocumented as of this encounter Visit Diagnoses Not on filedocumented in this encounter
--- OUTSIDE RECORDS SUMMARY | 2022-07-11 09:25 | XMS_ITS | Encounter Summary ---
:1990 Author Organization [facility] Address [address] [place] [address] Care Team Providers Name Role Phone Unavailable Primary Care Provider Unavailable Encounter Details Date Type Department Care Team Description 10/25/2008 Hospital Encounter HX [facility] Adan Griffin M.D. 200 [place], [place] [phone] (Wo rk) Social History Tobacco Use Types Packs/Day Years Used Date Smoking Tobacco: Never Assessed Sex Assigned at Date Recorded Not on file documented as of this encounter Plan of Treatment Not on filedocumented as of this encounter Visit Diagnoses Not on filedocumented in this encounter
--- OUTSIDE RECORDS SUMMARY | 2022-07-11 09:25 | XMS_ITS | Encounter Summary ---
:1990 Author Organization [facility] Address [address] [place] [address] Care Team Providers Name Role Phone Unavailable Primary Care Provider Unavailable Encounter Details Date Type Department Care Team Description 11/09/2009 Hospital Encounter HX [facility] Karlo Dawkins M.D. Social History Tobacco Use Types Packs/Day Years Used Date Smoking Tobacco: Never Assessed Sex Assigned at Date Recorded Not on file documented as of this encounter Progress Notes Rakan Dawkins M.D. - 11/09/2009 9:10 AM CST Report CLINIC NOTE [place], [place] PATIENT: [id number] NAME: YOLANDA LEONE ENCOUNTER: [id number] DATE OF : [birth year] SERVICE DATE: 11/09/09 PROVIDER: Rakan Dawkins MD LOCATION: CLINIC DESCRIPTION: FEVER/VOMITING CHARGES: 47219 OFFICE/OUTPATIENT VISIT, EST DIAGNOSES: 789.00 ABDOMINAL PAIN, UNSPECIFIED SITE 110.5 DERMATOPHYTOSIS OF BODY DOCUMENT TEXT: Patient Age: 19 Report Dictation DICTATED BY: Rakan Dawkins MD DATE: 11/09/2009 ASSESSMENT: Abdominal pain, unknown etiology. Probable nutritional and gastritis related to poor dietary patterns, smoking. PLAN: The importance of a high-fiber breakfast outlined and counseling for mypyramid.gov, etc., plus Super Size Me video recommended, and patient to follow up with dietary if persistent problems. Exercise encouraged. Use of lungs encouraged to quit smoking and to help her bowel patterns, that way. Beta screen to rule out strep that may be causing this whole scenario of low-grade fever and throat pain and abdominal pain. Penicillin will be indicated if that is positive. The patient seemed pleased with that plan. Meds verified. For ADHD will continue present management. HISTORY OF PRESENT ILLNESS: Yolanda is a 19-year-old who presents for follow up of her ER visit, where she was having increasing abdominal pain, fever and vomiting since last Thursday. It is not every day, but was in the ER on Thursday, and presents with her father. She states she has 19-year-old 11th grader who is doing well in school, and gets B's, C's, and had a couple D's. Father states that since she changed school up with him in [place]. She is doing much better. She presents today for history of right upper quadrant abdominal pain. Temperature low grade at 100 with cough. She was given 15 tablets of Vicodin and sent given Toradol in the ER and states that the Vicodin kind of made her sick, and she was diagnosed with constipation at the time, and comes in for a recheck. She is on Depo-Medrol for control, and has not been eating breakfast. Has been drinking her Dr. Peppers and Cokes, and only eating once a day, and complains of abdominal pain, slight sore throat, and had a low-grade fever. Exam shows obese, pleasant 19-year-old, appears cooperative in no acute distress. She does smell of cigarettes, and does admit to smoking a pack every 3 days. Smoking cessation and discussion was strongly urged with 1 800 QUIT NOW, and crushing the cigarettes explaining. I have explained the importance of empowering yourself to get diet and exercise at mypyramid.gov. She has a spot a ringworm, a tinea corporis on her right arm which has been expanding, and they have been using lanolin on. I suggested Lamisil b.i.d. She does have dry skin, for which I recommended switching to Dove and using hydrocortisone cream. PHYSICAL EXAMINATION: ABDOMEN EXAM: Normal. Diffuse guarding. CHEST: Clear. HEART: In sinus rhythm. She has chest wall tenderness to palpation. GENERAL: Appears in no acute distress. Activities consistent with ADHD. She does have a slight injected throat, and tender lymph nodes. TCR:odilon cc: Rooming Doc Allergies Coded Allergies: No Known Drug Intolerances (Unknown,Unknown 11/09/09) Converted from Ingredient Allergy: No Known Drug Allergies Patient History Social History Social History was reviewed and updated. Marital Status: single Occupation: STUDENT Tobacco use or exposure? Y Type: pt is a smoker Packs per day: [id number] Cessation advise offered: Y Any use of alcohol? N Any user of caffeine? N Any recent travel? Y Travel Region(s): [place] Surgery and Event History Tonsillectomy & Adenoidectomy, 01/30/05 Health Maint and Disease Mgmt Health Maintenance and Disease Management was reviewed and updated. Vitals Weight: 84.4 kg Temperature: 37.0 C, Temporal Pulse: 66 Blood Pressure: 100/70 (Sitting, Left Arm) Additional Vitals Information Pain Scale [0-10]: 6 Diabetes: N Primary Care: [facility] Chief Complaint: FEVER AND VOMITING SINCE LAST THURSDAY. ISN'T EVERY DAY. WAS IN ER ON THURSDAY Orders Medications and Procedures Prescriptions: Active - Amphet Asp/Amphet/D-Amphet (Adderall Xr) 30 MG XR.CAP, 10/17/09 30 Milligrams ORAL every day, #30 Cap, Refills 0 Dx - ATTN DEFICIT W HYPERACT Ibuprofen (Motrin) 400 MG TABLET, 10/25/08 400 Milligrams ORAL twice a day, #20 Tablet, Refills 0 Reported - Hydrocortisone (Cortaid Cream) 1 % TUBE 1 Application TOPICAL twice a day, #15 Gram Terbinafine (Lamisil Cream) 1 % TUBE 1 Application TOPICAL twice a day, #24 Gram Dx - DERMATOPHYTOSIS OF BODY Calcium Citrate/Vitamin D3 (Citracal 250MG + D Tablet) 1 EACH TABLET 1 Tablet ORAL every day Tablet Medroxyprogesterone (Depo-Provera) 150 MG/ML VIAL 150 Milligrams INTRAMUSC every 12 weeks, #4 Discontinued - Isotretinoin (Accutane) 40 MG CAPSULE, 10/25/08 40 Milligrams ORAL twice a day, #60 Cap, Refills 0 Benzonatate (Tessalon) 200 MGMilligrams CAPSULE, 07/09/09 200 Milligrams ORAL 3 times every day PRN, #30 Cap, Refills 0 Dx - COUGH Albuterol (Proventil Hfa Inhaler) 6.7 GM INH, 07/09/09 1 - 2 Puff INHALATION every 4 to 6 hours as needed, #1 Inhaler, Refills 0 Dx - COUGH Diagnostics: RSS Rapid Strep Screen ( Today at [facility]) Dx - ABDOMINAL PAIN, UNSPECIFIED SITE at 1802. Source: [facility] AMCHXTRANSXSYS Document Id: [id number] documented in this encounter Plan of Treatment Not on filedocumented as of this encounter Visit Diagnoses Not on filedocumented in this encounter
--- OUTSIDE RECORDS SUMMARY | 2022-07-11 09:25 | XMS_ITS | Encounter Summary ---
:1990 Author Organization [facility] Address [address] [place] [address] Care Team Providers Name Role Phone Unavailable Primary Care Provider Unavailable Encounter Details Date Type Department Care Team Description 09/13/2008 Hospital Encounter HX [facility] Adan Griffin M.D. 200 [place], [place] [phone] (Wo rk) Social History Tobacco Use Types Packs/Day Years Used Date Smoking Tobacco: Never Assessed Sex Assigned at Date Recorded Not on file documented as of this encounter Plan of Treatment Not on filedocumented as of this encounter Visit Diagnoses Not on filedocumented in this encounter
--- OUTSIDE RECORDS SUMMARY | 2022-07-11 09:25 | XMS_ITS | Encounter Summary ---
:1990 Author Organization [facility] Address [address] [place] [address] Care Team Providers Name Role Phone Unavailable Primary Care Provider Unavailable Encounter Details Date Type Department Care Team Description 10/25/2008 Hospital Encounter HX [facility] Anibal Kim M.D. 200 [place], [place] [phone] (Wo rk) Social History Tobacco Use Types Packs/Day Years Used Date Smoking Tobacco: Never Assessed Sex Assigned at Date Recorded Not on file documented as of this encounter Plan of Treatment Not on filedocumented as of this encounter Visit Diagnoses Not on filedocumented in this encounter
--- OUTSIDE RECORDS SUMMARY | 2022-07-11 09:25 | XMS_ITS | Encounter Summary ---
:1990 Author Organization [facility] Address [address] [place] [address] Care Team Providers Name Role Phone Unavailable Primary Care Provider Unavailable Encounter Details Date Type Department Care Team Description 07/09/2009 Hospital Encounter HX [facility] Karlo Dawkins M.D. Social History Tobacco Use Types Packs/Day Years Used Date Smoking Tobacco: Never Assessed Sex Assigned at Date Recorded Not on file documented as of this encounter Progress Notes Rakan Dawkins M.D. - 07/09/2009 9:10 AM CDT Report CLINIC NOTE [place], [place] PATIENT: [id number] NAME: YOLANDA LEONE ENCOUNTER: [id number] DATE OF : [birth year] SERVICE DATE: 07/09/09 PROVIDER: Rakan Dawkins MD LOCATION: CLINIC DESCRIPTION: COUGH CHARGES: 59566 OFFICE/OUTPATIENT VISIT, EST [address]10 INFLUENZA VACCINE SPLIT VIRUS 3+ YOA 56835 IMMUNIZATION ADMIN, SINGLE DIAGNOSES: 786.2 COUGH V04.81 ND FOR PROPHYLACTIC VACCIN AND INOCULATION, INFLUENZA FINANCE MANAGER TEXT: E-Signed on 07/20/09 at 1729 by Rakan Dawkins MD DICTATED BY: Rakan Dawkins MD DATE: 07/09/2009 ASSESSMENT AND PLAN: Cough and evidence of a lot of fluid in the territory. 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 Tessalon Perles for the cough. I will print up an albuterol inhaler for the option of 2 puffs q.i.d. p.r.n. cough if that gets worse for the bronchitis portion, and I have strongly urged smoking cessation. If no improvement of the cough, I would consider a chest x-ray since it has been 3 weeks. If she does have any coughing or vomiting, I would consider doing a pertussis culture also. The patient to start with the symptomatic treatment and sinus rinse kit advised. Recheck if persistent problems. Flu shot recommended. Smoking cessation again urged. Meds verified. HISTORY: Yolanda is a 19-year-old who comes in with a problem with a cough for roughly 3 weeks. She smokes about 1/3 of a pack of cigarettes a day. She states she used to smoke without a cough, but now she has a cough and will try to quit smoking. She denies any fever, but does describe feeling achy today. Her ribs hurt from coughing so much, and she has tried some NyQuil. The patient states she is getting A's and B's in her last term, and that Adderall seems to be helping. She denies any problems with it. Last night she could not sleep well, primarily from the cough, otherwise she states she is sleeping well. PHYSICAL EXAMINATION: GENERAL: Exam shows a slightly overweight 19-year-old who appears in no acute distress. She has got a mask on. She is afebrile. HEENT: She has got waxy ears bilaterally, and every time I touch the ears while cleaning the wax, she will have an exacerbation of Arnold's nerve causing an acute cough. Her nose is congested and slightly red. Throat is benign. There is no adenopathy. LUNGS: Her lungs are clear to auscultation and percussion. CHEST: Clear to auscultation and percussion. She has some mild rib pain from palpation, but the lungs are clear. TCR:pslb cc: Active Med List: New Benzonatate (Tessalon) 200 MG CAPSULE 07/09/09 200 MG PO TID PRN #30 CAP Ref 0 New Albuterol (Proventil Hfa Inhaler) 6.7 GM INH 07/09/09 1 - 2 PUFF IH Q4-6H PRN #1 INHALER Ref 0 Amphet Asp/Amphet/D-Amphet (Adderall 30 MG XR....05/29/09 30 MG PO DAILY #30 CAP Ref 0 Isotretinoin (Accutane) 40 MG CAPSULE 10/25/08 40 MG PO BID #60 CAP Ref 0 Ibuprofen (Motrin) 400 MG TABLET 10/25/08 400 MG PO BID #20 TAB Ref 0 Calcium Citrate/Vitamin D3 (Citracal 1 EACH TA...Profile 1 TAB PO DAILY TAB Ref 0 Medroxyprogesterone (Depo-Provera) 150 MG/ML VIAL Profile 150 MG IM Q12WKS #4 Ref 0 Patient Age: 19 Reason for Visit: COUGH BMI: kg/m2 Vitals: 86.6 kg Temp 36.9 C Tympanic Pulse 88 BP 123/71 Sitting Left arm. Pain Scale [0-10]: 8 (RIBS AND CARTER) Diabetes: N Pulse Oximetry: 97% Chief Complaint: COUGH FOR 3 WEEKS, NO TEMP, BODY ACHES. RIBS HURT FOR COUGHING SO MUCH AND SO HARD AND A CARTER FROM COUGHING SO MUCH AND HARD Medication Verification: DOES NOT TAKE CITRACEL OR MOTRIN AND HAS BEEN TAKING GRAPE COUGH MEDICINE Allergies: No Known Drug Intolerances Allergies per Inpatient Nursing Documentation: [NKDA] [METAL] Social History: Marital Status: single Occupation: STUDENT Tobacco use or exposure? Y ?Type: pt is a smoker ?Packs per day: [id number] ?Cessation advise offered: Y Any use of alcohol? N Any user of caffeine? N Any recent travel? Y ?Travel Region(s): [facility] was reviewed. Source: [facility] AMCHXTRANSXSYS Document Id: [id number] Electronically signed by Conversion, [facility] Customer Experience Leader [id number] at 03/30/2017 10:04 PM CDT documented in this encounter Plan of Treatment Not on filedocumented as of this encounter Visit Diagnoses Not on filedocumented in this encounter
--- OUTSIDE RECORDS SUMMARY | 2022-07-11 09:25 | XMS_ITS | Encounter Summary ---
:1990 Author Organization [facility] Address [address] [place] [address] Care Team Providers Name Role Phone Unavailable Primary Care Provider Unavailable Encounter Details Date Type Department Care Team Description 10/25/2008 Hospital Encounter HX NO MAPPING Blanka Kim M.D. 200 [place], [place] [phone] (Wo rk) Social History Tobacco Use Types Packs/Day Years Used Date Smoking Tobacco: Never Assessed Sex Assigned at Date Recorded Not on file documented as of this encounter Plan of Treatment Not on filedocumented as of this encounter Visit Diagnoses Not on filedocumented in this encounter
--- OUTSIDE RECORDS SUMMARY | 2022-07-11 09:25 | XMS_ITS | Encounter Summary ---
:1990 Author Organization [facility] Address [address] [place] [address] Care Team Providers Name Role Phone Unavailable Primary Care Provider Unavailable Encounter Details Date Type Department Care Team Description 09/13/2008 Hospital Encounter HX [facility] Anibal Kim M.D. 200 [place], [place] [phone] (Wo rk) Social History Tobacco Use Types Packs/Day Years Used Date Smoking Tobacco: Never Assessed Sex Assigned at Date Recorded Not on file documented as of this encounter Plan of Treatment Not on filedocumented as of this encounter Visit Diagnoses Not on filedocumented in this encounter
--- OUTSIDE RECORDS SUMMARY | 2022-07-11 09:25 | XMS_ITS | Encounter Summary ---
:1990 Author Organization [facility] Address [address] [place] [address] Care Team Providers Name Role Phone Unavailable Primary Care Provider Unavailable Encounter Details Date Type Department Care Team Description 09/11/2009 Hospital Encounter HX [facility] Nicolasa Toribio D.O. Social History Tobacco Use Types Packs/Day Years Used Date Smoking Tobacco: Never Assessed Sex Assigned at Date Recorded Not on file documented as of this encounter Plan of Treatment Not on filedocumented as of this encounter Visit Diagnoses Not on filedocumented in this encounter
--- OUTSIDE RECORDS SUMMARY | 2022-07-11 09:25 | XMS_ITS | Encounter Summary ---
:1990 Author Organization [facility] Address [address] [place] [address] Care Team Providers Name Role Phone Unavailable Primary Care Provider Unavailable Encounter Details Date Type Department Care Team Description 10/11/2008 Hospital Encounter HX [facility] Kacie Lanier APRN, C.N.P. Social History Tobacco Use Types Packs/Day Years Used Date Smoking Tobacco: Never Assessed Sex Assigned at Date Recorded Not on file documented as of this encounter Plan of Treatment Not on filedocumented as of this encounter Visit Diagnoses Not on filedocumented in this encounter
--- OUTSIDE RECORDS SUMMARY | 2022-07-11 09:26 | XMS_ITS | Encounter Summary ---
:1990 Author Organization [facility] Address [address] [place] [address] Care Team Providers Name Role Phone Unavailable Primary Care Provider Unavailable Encounter Details Date Type Department Care Team Description 08/08/2008 Hospital Encounter [facility]X [facility] Anibal Kim M.D. 200 [place], [place] [phone] (Wo rk) Social History Tobacco Use Types Packs/Day Years Used Date Smoking Tobacco: Never Assessed Sex Assigned at Date Recorded Not on file documented as of this encounter Plan of Treatment Not on filedocumented as of this encounter Visit Diagnoses Not on filedocumented in this encounter
--- OUTSIDE RECORDS SUMMARY | 2022-07-11 09:26 | XMS_ITS | Encounter Summary ---
:1990 Author Organization [facility] Address [address] [place] [address] Care Team Providers Name Role Phone Unavailable Primary Care Provider Unavailable Encounter Details Date Type Department Care Team Description 02/22/2008 Hospital Encounter [facility] Nicolasa Desouza D.O. Social History Tobacco Use Types Packs/Day Years Used Date Smoking Tobacco: Never Assessed Sex Assigned at Date Recorded Not on file documented as of this encounter Plan of Treatment Not on filedocumented as of this encounter Visit Diagnoses Not on filedocumented in this encounter
--- OUTSIDE RECORDS SUMMARY | 2022-07-11 09:26 | XMS_ITS | Encounter Summary ---
:1990 Author Organization [facility] Address [address] [place] [address] Care Team Providers Name Role Phone Unavailable Primary Care Provider Unavailable Encounter Details Date Type Department Care Team Description 05/30/2008 Hospital Encounter [facility] Adan Griffin M.D. 200 [place], [place] [phone] (Wo rk) Social History Tobacco Use Types Packs/Day Years Used Date Smoking Tobacco: Never Assessed Sex Assigned at Date Recorded Not on file documented as of this encounter Plan of Treatment Not on filedocumented as of this encounter Visit Diagnoses Not on filedocumented in this encounter
--- OUTSIDE RECORDS SUMMARY | 2022-07-11 09:26 | XMS_ITS | Encounter Summary ---
:1990 Author Organization [facility] Address [address] [place] [address] Care Team Providers Name Role Phone Unavailable Primary Care Provider Unavailable Encounter Details Date Type Department Care Team Description 08/04/2008 Hospital Encounter HX [facility] Karlo Olivera M.D. Social History Tobacco Use Types Packs/Day Years Used Date Smoking Tobacco: Never Assessed Sex Assigned at Date Recorded Not on file documented as of this encounter Plan of Treatment Not on filedocumented as of this encounter Visit Diagnoses Not on filedocumented in this encounter
--- OUTSIDE RECORDS SUMMARY | 2022-07-11 09:26 | XMS_ITS | Encounter Summary ---
:1990 Author Organization [facility] Address [address] [place] [address] Care Team Providers Name Role Phone Unavailable Primary Care Provider Unavailable Encounter Details Date Type Department Care Team Description 05/16/2008 Hospital Encounter HX [facility] Nicolasa Toribio D.O. Social History Tobacco Use Types Packs/Day Years Used Date Smoking Tobacco: Never Assessed Sex Assigned at Date Recorded Not on file documented as of this encounter Plan of Treatment Not on filedocumented as of this encounter Visit Diagnoses Not on filedocumented in this encounter
--- OUTSIDE RECORDS SUMMARY | 2022-07-11 09:26 | XMS_ITS | Encounter Summary ---
:1990 Author Organization [facility] Address [address] [place] [address] Care Team Providers Name Role Phone Unavailable Primary Care Provider Unavailable Encounter Details Date Type Department Care Team Description 08/08/2008 Hospital Encounter HX [facility] Adan Griffin M.D. 200 [place], [place] [phone] (Wo rk) Social History Tobacco Use Types Packs/Day Years Used Date Smoking Tobacco: Never Assessed Sex Assigned at Date Recorded Not on file documented as of this encounter Plan of Treatment Not on filedocumented as of this encounter Visit Diagnoses Not on filedocumented in this encounter
--- OUTSIDE RECORDS SUMMARY | 2022-07-11 09:26 | XMS_ITS | Encounter Summary ---
:1990 Author Organization [facility] Address [address] [place] [address] Care Team Providers Name Role Phone Unavailable Primary Care Provider Unavailable Encounter Details Date Type Department Care Team Description 02/22/2008 Hospital Encounter HX [facility] Nicolasa Toribio D.O. Social History Tobacco Use Types Packs/Day Years Used Date Smoking Tobacco: Never Assessed Sex Assigned at Date Recorded Not on file documented as of this encounter Plan of Treatment Not on filedocumented as of this encounter Visit Diagnoses Not on filedocumented in this encounter
--- OUTSIDE RECORDS SUMMARY | 2022-07-11 09:26 | XMS_ITS | Encounter Summary ---
:1990 Author Organization [facility] Address [address] [place] [address] Care Team Providers Name Role Phone Unavailable Primary Care Provider Unavailable Encounter Details Date Type Department Care Team Description 03/15/2008 Hospital Encounter [facility] Anibal Kim M.D. 200 [place], [place] [phone] (Wo rk) Social History Tobacco Use Types Packs/Day Years Used Date Smoking Tobacco: Never Assessed Sex Assigned at Date Recorded Not on file documented as of this encounter Plan of Treatment Not on filedocumented as of this encounter Visit Diagnoses Not on filedocumented in this encounter
--- OUTSIDE RECORDS SUMMARY | 2022-07-11 09:26 | XMS_ITS | Encounter Summary ---
:[address] [facility] Address [address] [place] [address] Care Team Providers Name Role Phone Unavailable Primary Care Provider Unavailable Encounter Details Date Type Department Care Team Description 07/03/2008 Hospital Encounter [facility] Anibal Kim M.D. 200 [place], [place] [phone] (Wo rk) Social History Tobacco Use Types Packs/Day Years Used Date Smoking Tobacco: Never Assessed Sex Assigned at Date Recorded Not on file documented as of this encounter Plan of Treatment Not on filedocumented as of this encounter Visit Diagnoses Not on filedocumented in this encounter
--- OUTSIDE RECORDS SUMMARY | 2022-07-11 09:26 | XMS_ITS | Encounter Summary ---
:1990 Author Organization [facility] Address [address] [place] [address] Care Team Providers Name Role Phone Unavailable Primary Care Provider Unavailable Encounter Details Date Type Department Care Team Description 08/18/2008 Hospital Encounter [facility]X [facility] MD Karlo Dawkins M.D. Social History Tobacco Use Types Packs/Day Years Used Date Smoking Tobacco: Never Assessed Sex Assigned at Date Recorded Not on file documented as of this encounter Plan of Treatment Not on filedocumented as of this encounter Visit Diagnoses Not on filedocumented in this encounter
--- OUTSIDE RECORDS SUMMARY | 2022-07-11 09:26 | XMS_ITS | Encounter Summary ---
:1990 Author Organization [facility] Address [address] [place] [address] Care Team Providers Name Role Phone Unavailable Primary Care Provider Unavailable Encounter Details Date Type Department Care Team Description 07/05/2008 Hospital Encounter [facility] Adan Griffin M.D. 200 [place], [place] [phone] (Wo rk) Social History Tobacco Use Types Packs/Day Years Used Date Smoking Tobacco: Never Assessed Sex Assigned at Date Recorded Not on file documented as of this encounter Plan of Treatment Not on filedocumented as of this encounter Visit Diagnoses Not on filedocumented in this encounter
--- OUTSIDE RECORDS SUMMARY | 2022-07-11 09:26 | XMS_ITS | Encounter Summary ---
:1990 Author Organization [facility] Address [address] [place] [address] Care Team Providers Name Role Phone Unavailable Primary Care Provider Unavailable Encounter Details Date Type Department Care Team Description 04/14/2008 Hospital Encounter [facility] Anibal Kim M.D. 200 [place], [place] [phone] (Wo rk) Social History Tobacco Use Types Packs/Day Years Used Date Smoking Tobacco: Never Assessed Sex Assigned at Date Recorded Not on file documented as of this encounter Plan of Treatment Not on filedocumented as of this encounter Visit Diagnoses Not on filedocumented in this encounter
--- OUTSIDE RECORDS SUMMARY | 2022-07-11 09:26 | XMS_ITS | Encounter Summary ---
:1990 Author Organization [facility] Address [address] [place] [address] Care Team Providers Name Role Phone Unavailable Primary Care Provider Unavailable Encounter Details Date Type Department Care Team Description 02/22/2008 Hospital Encounter [facility]X [facility] Ashley Truong M.D. Social History Tobacco Use Types Packs/Day Years Used Date Smoking Tobacco: Never Assessed Sex Assigned at Date Recorded Not on file documented as of this encounter Plan of Treatment Not on filedocumented as of this encounter Visit Diagnoses Not on filedocumented in this encounter
--- OUTSIDE RECORDS SUMMARY | 2022-07-11 09:26 | XMS_ITS | Encounter Summary ---
:1990 Author Organization [facility] Address [address] [place] [address] Care Team Providers Name Role Phone Unavailable Primary Care Provider Unavailable Encounter Details Date Type Department Care Team Description 08/18/2008 Hospital Encounter HX NO MAPPING Rubi Cheema Social History Tobacco Use Types Packs/Day Years Used Date Smoking Tobacco: Never Assessed Sex Assigned at Date Recorded Not on file documented as of this encounter Plan of Treatment Not on filedocumented as of this encounter Visit Diagnoses Not on filedocumented in this encounter
--- OUTSIDE RECORDS SUMMARY | 2022-07-11 09:26 | XMS_ITS | Encounter Summary ---
:1990 Author Organization [facility] Address [address] [place] [address] Care Team Providers Name Role Phone Unavailable Primary Care Provider Unavailable Encounter Details Date Type Department Care Team Description 05/30/2008 Hospital Encounter [facility] Anibal Kim M.D. 200 [place], [place] [phone] (Wo rk) Social History Tobacco Use Types Packs/Day Years Used Date Smoking Tobacco: Never Assessed Sex Assigned at Date Recorded Not on file documented as of this encounter Plan of Treatment Not on filedocumented as of this encounter Visit Diagnoses Not on filedocumented in this encounter
--- OUTSIDE RECORDS SUMMARY | 2022-07-11 09:26 | XMS_ITS | Encounter Summary ---
:1990 Author Organization [facility] Address [address] [place] [address] Care Team Providers Name Role Phone Unavailable Primary Care Provider Unavailable Encounter Details Date Type Department Care Team Description 03/15/2008 Hospital Encounter [facility] Anibal Kim M.D. 200 [place], [place] [phone] (Wo rk) Social History Tobacco Use Types Packs/Day Years Used Date Smoking Tobacco: Never Assessed Sex Assigned at Date Recorded Not on file documented as of this encounter Plan of Treatment Not on filedocumented as of this encounter Visit Diagnoses Not on filedocumented in this encounter
--- OUTSIDE RECORDS SUMMARY | 2022-07-11 09:26 | XMS_ITS | Encounter Summary ---
:1990 Author Organization [facility] Address [address] [place] [address] Care Team Providers Name Role Phone Unavailable Primary Care Provider Unavailable Encounter Details Date Type Department Care Team Description 08/16/2008 Hospital Encounter [facility] [place] Karlo Dawkins M.D. Social History Tobacco Use Types Packs/Day Years Used Date Smoking Tobacco: Never Assessed Sex Assigned at Date Recorded Not on file documented as of this encounter Plan of Treatment Not on filedocumented as of this encounter Visit Diagnoses Not on filedocumented in this encounter
--- OUTSIDE RECORDS SUMMARY | 2022-07-11 09:26 | XMS_ITS | Encounter Summary ---
:1990 Author Organization [facility] Address [address] [place] [address] Care Team Providers Name Role Phone Unavailable Primary Care Provider Unavailable Encounter Details Date Type Department Care Team Description 08/18/2008 Hospital Encounter [facility]X [facility] Rakan Dawkins M.D. Social History Tobacco Use Types Packs/Day Years Used Date Smoking Tobacco: Never Assessed Sex Assigned at Date Recorded Not on file documented as of this encounter Plan of Treatment Not on filedocumented as of this encounter Visit Diagnoses Not on filedocumented in this encounter
--- OUTSIDE RECORDS SUMMARY | 2022-07-11 09:27 | XMS_ITS | Encounter Summary ---
:1990 Author Organization [facility] Address [address] [place] [address] Care Team Providers Name Role Phone Unavailable Primary Care Provider Unavailable Encounter Details Date Type Department Care Team Description 08/10/2007 Hospital Encounter [facility] Nicolasa Torbiio D.O. Social History Tobacco Use Types Packs/Day Years Used Date Smoking Tobacco: Never Assessed Sex Assigned at Date Recorded Not on file documented as of this encounter Plan of Treatment Not on filedocumented as of this encounter Visit Diagnoses Not on filedocumented in this encounter
--- OUTSIDE RECORDS SUMMARY | 2022-07-11 09:27 | XMS_ITS | Encounter Summary ---
:1990 Author Organization [facility] Address [address] [place] [address] Care Team Providers Name Role Phone Unavailable Primary Care Provider Unavailable Encounter Details Date Type Department Care Team Description 03/20/2006 Hospital Encounter [facility] Anibal Donohue M.D. 200 [place] [phone] (Wo rk) Social History Tobacco Use Types Packs/Day Years Used Date Smoking Tobacco: Never Assessed Sex Assigned at Date Recorded Not on file documented as of this encounter Plan of Treatment Not on filedocumented as of this encounter Visit Diagnoses Not on filedocumented in this encounter
--- OUTSIDE RECORDS SUMMARY | 2022-07-11 09:27 | XMS_ITS | Encounter Summary ---
:1990 Author Organization [facility] Address [address] [place] [address] Care Team Providers Name Role Phone Unavailable Primary Care Provider Unavailable Encounter Details Date Type Department Care Team Description 01/13/2006 Hospital Encounter [facility] Adan Griffin M.D. 200 [place], [place] [phone] (Wo rk) Social History Tobacco Use Types Packs/Day Years Used Date Smoking Tobacco: Never Assessed Sex Assigned at Date Recorded Not on file documented as of this encounter Plan of Treatment Not on filedocumented as of this encounter Visit Diagnoses Not on filedocumented in this encounter
--- OUTSIDE RECORDS SUMMARY | 2022-07-11 09:27 | XMS_ITS | Encounter Summary ---
:1990 Author Organization [facility] Address [address] [place] [address] Care Team Providers Name Role Phone Unavailable Primary Care Provider Unavailable Encounter Details Date Type Department Care Team Description 02/04/2006 Hospital Encounter [facility] Anibal Donohue M.D. 200 [place] [address] (Wo rk) Social History Tobacco Use Types Packs/Day Years Used Date Smoking Tobacco: Never Assessed Sex Assigned at Date Recorded Not on file documented as of this encounter Plan of Treatment Not on filedocumented as of this encounter Visit Diagnoses Not on filedocumented in this encounter
--- OUTSIDE RECORDS SUMMARY | 2022-07-11 09:27 | XMS_ITS | Encounter Summary ---
:1990 Author Organization [facility] Address [address] [place] [address] Care Team Providers Name Role Phone Unavailable Primary Care Provider Unavailable Encounter Details Date Type Department Care Team Description 02/16/2006 Hospital Encounter [facility]X [facility] Nicolasa Toribio D.O. Social History Tobacco Use Types Packs/Day Years Used Date Smoking Tobacco: Never Assessed Sex Assigned at Date Recorded Not on file documented as of this encounter Plan of Treatment Not on filedocumented as of this encounter Visit Diagnoses Not on filedocumented in this encounter
--- OUTSIDE RECORDS SUMMARY | 2022-07-11 09:27 | XMS_ITS | Encounter Summary ---
:1990 Author Organization [facility] Address [address] [place] [address] Care Team Providers Name Role Phone Unavailable Primary Care Provider Unavailable Encounter Details Date Type Department Care Team Description 07/29/2006 Hospital Encounter [facility] Guy Valera, Ruslan [address] [place], [place] [phone] (Wo rk) Social History Tobacco Use Types Packs/Day Years Used Date Smoking Tobacco: Never Assessed Sex Assigned at Date Recorded Not on file documented as of this encounter Plan of Treatment Not on filedocumented as of this encounter Visit Diagnoses Not on filedocumented in this encounter
--- OUTSIDE RECORDS SUMMARY | 2022-07-11 09:27 | XMS_ITS | Encounter Summary ---
:1990 Author Organization [facility] Address [address] [place] [address] Care Team Providers Name Role Phone Unavailable Primary Care Provider Unavailable Encounter Details Date Type Department Care Team Description 08/04/[address] [facility] Adan Griffin M.D. 200 [place], [place] [phone] (Wo rk) Social History Tobacco Use Types Packs/Day Years Used Date Smoking Tobacco: Never Assessed Sex Assigned at Date Recorded Not on file documented as of this encounter Plan of Treatment Not on filedocumented as of this encounter Visit Diagnoses Not on filedocumented in this encounter
--- OUTSIDE RECORDS SUMMARY | 2022-07-11 09:27 | XMS_ITS | Encounter Summary ---
:1990 Author Organization [facility] Address [address] [place] [address] Care Team Providers Name Role Phone Unavailable Primary Care Provider Unavailable Encounter Details Date Type Department Care Team Description 11/10/2007 Hospital Encounter [facility] Adam Stroud Social History Tobacco Use Types Packs/Day Years Used Date Smoking Tobacco: Never Assessed Sex Assigned at Date Recorded Not on file documented as of this encounter Plan of Treatment Not on filedocumented as of this encounter Visit Diagnoses Not on filedocumented in this encounter
--- OUTSIDE RECORDS SUMMARY | 2022-07-11 09:27 | XMS_ITS | Encounter Summary ---
:1992 Author Organization [facility] Address [address] [place] [address] Care Team Providers Name Role Phone Unavailable Primary Care Provider Unavailable Encounter Details Date Type Department Care Team Description 02/09/2008 Hospital Encounter HX NO MAP[facility] Adam Stroud Social History Tobacco Use Types Packs/Day Years Used Date Smoking Tobacco: Never Assessed Sex Assigned at Date Recorded Not on file documented as of this encounter Plan of Treatment Not on filedocumented as of this encounter Visit Diagnoses Not on filedocumented in this encounter
--- OUTSIDE RECORDS SUMMARY | 2022-07-11 09:27 | XMS_ITS | Encounter Summary ---
:1990 Author Organization [facility] Address [address] [place] [address] Care Team Providers Name Role Phone Unavailable Primary Care Provider Unavailable Encounter Details Date Type Department Care Team Description 02/18/2006 Hospital Encounter [facility] Adan Griffin M.D. 200 [place], [place] [phone] (Wo rk) Social History Tobacco Use Types Packs/Day Years Used Date Smoking Tobacco: Never Assessed Sex Assigned at Date Recorded Not on file documented as of this encounter Plan of Treatment Not on filedocumented as of this encounter Visit Diagnoses Not on filedocumented in this encounter
--- OUTSIDE RECORDS SUMMARY | 2022-07-11 09:27 | XMS_ITS | Encounter Summary ---
:1990 Author Organization [facility] Address [address] [place] [address] Care Team Providers Name Role Phone Unavailable Primary Care Provider Unavailable Encounter Details Date Type Department Care Team Description 05/06/2006 Hospital Encounter [facility] Anibal Donohue M.D. 200 [place] [address] (Wo rk) Social History Tobacco Use Types Packs/Day Years Used Date Smoking Tobacco: Never Assessed Sex Assigned at Date Recorded Not on file documented as of this encounter Plan of Treatment Not on filedocumented as of this encounter Visit Diagnoses Not on filedocumented in this encounter
--- OUTSIDE RECORDS SUMMARY | 2022-07-11 09:27 | XMS_ITS | Encounter Summary ---
:1990 Author Organization [facility] Address [address] [place] [address] Care Team Providers Name Role Phone Unavailable Primary Care Provider Unavailable Encounter Details Date Type Department Care Team Description 04/06/[address] [facility] Adam Stroud Social History Tobacco Use Types Packs/Day Years Used Date Smoking Tobacco: Never Assessed Sex Assigned at Date Recorded Not on file documented as of this encounter Plan of Treatment Not on filedocumented as of this encounter Visit Diagnoses Not on filedocumented in this encounter
--- OUTSIDE RECORDS SUMMARY | 2022-07-11 09:27 | XMS_ITS | Encounter Summary ---
:1990 Author Organization [facility] Address [address] [place] [address] Care Team Providers Name Role Phone Unavailable Primary Care Provider Unavailable Encounter Details Date Type Department Care Team Description 05/04/2006 Hospital Encounter [facility] [place] Karlo Dawkins M.D. Social History Tobacco Use Types Packs/Day Years Used Date Smoking Tobacco: Never Assessed Sex Assigned at Date Recorded Not on file documented as of this encounter Plan of Treatment Not on filedocumented as of this encounter Visit Diagnoses Not on filedocumented in this encounter
--- OUTSIDE RECORDS SUMMARY | 2022-07-11 09:27 | XMS_ITS | Encounter Summary ---
:1990 Author Organization [facility] Address [address] [place] [address] Care Team Providers Name Role Phone Unavailable Primary Care Provider Unavailable Encounter Details Date Type Department Care Team Description 08/18/2007 Hospital Encounter [facility] Anibal Kim M.D. 200 [place], [place] [phone] (Wo rk) Social History Tobacco Use Types Packs/Day Years Used Date Smoking Tobacco: Never Assessed Sex Assigned at Date Recorded Not on file documented as of this encounter Plan of Treatment Not on filedocumented as of this encounter Visit Diagnoses Not on filedocumented in this encounter
--- OUTSIDE RECORDS SUMMARY | 2022-07-11 09:27 | XMS_ITS | Encounter Summary ---
:1990 Author Organization [facility] Address [address] [place] [address] Care Team Providers Name Role Phone Unavailable Primary Care Provider Unavailable Encounter Details Date Type Department Care Team Description 01/23/2006 Hospital Encounter [facility] Guy Valera D.O. [address] [place], [place] [address] (Wo rk) Social History Tobacco Use Types Packs/Day Years Used Date Smoking Tobacco: Never Assessed Sex Assigned at Date Recorded Not on file documented as of this encounter Plan of Treatment Not on filedocumented as of this encounter Procedures Procedure Name Priority Date/Time Associated Diagnosis Comme nts DX NASAL BONES 3+ Routine 01/23/2006 3:03 PM Resu lts for this VIEWS CDT procedure are i n the results section. documented in this encounter Results DX Nasal Bones 3+ Views (01/23/2006 3:03 PM CDT) Anatomical Region Laterality Modality Skull N/A Radiographic Imaging Specimen (Source) Anatomical Collection Method Collection Time Re ceived Time Location / / Volume Laterality 01/23/2006 3:03 PM CDT Narrative 01/23/2006 3:03 PM CDT Originally Signed By Contributor_system, [facility] [place] Nasal bone views: Reason for exam: Nose injury. No definite nasal fracture or acute bony abnormality. Small vascular grooves of the nasal bone noted. Finding s conveyed by telephone to Cristal Solis. Electronically Signed 01/23/2006 Reported By: Brandt Castillo ?? Transcribed: 01/23/2006 ([id number]) ??[facility] CC: MS Cristal Ruiz ??COOPER Solis Procedure Note ProviderDeejay M.D. - 03/04/2017F ormatting of this note might be different from the original. Originally Signed By Contributor_system, [facility] [place] Nasal bone views: Reason for exam: Nose injury. No definite nasal fracture or acute bony abnormality. Small vascular grooves of the nasal bone noted. Finding s conveyed by telephone to Cristal Solis. Electronically Signed 01/23/2006 Reported By: Brandt Castillo MD Transcribed: 01/23/2006 ([id number]) [facility] [place].[facility] CC: MS Cristal Solis Historical Provider IMG DIAGNOSTIC IMAGING PROCE SRUTHI documented in this encounter Visit Diagnoses Not on filedocumented in this encounter
--- OUTSIDE RECORDS SUMMARY | 2022-07-11 09:27 | XMS_ITS | Encounter Summary ---
:1990 Author Organization [facility] Address [address] [place] [address] Care Team Providers Name Role Phone Unavailable Primary Care Provider Unavailable Encounter Details Date Type Department Care Team Description 01/17/2008 Hospital Encounter [facility] Conchis Grace, C.N.P., R.N. [address] [place] [address] (Wo rk) Social History Tobacco Use Types Packs/Day Years Used Date Smoking Tobacco: Never Assessed Sex Assigned at Date Recorded Not on file documented as of this encounter Plan of Treatment Not on filedocumented as of this encounter Visit Diagnoses Not on filedocumented in this encounter
--- OUTSIDE RECORDS SUMMARY | 2022-07-11 09:27 | XMS_ITS | Encounter Summary ---
:1990 Author Organization [facility] Address [address] [place] [address] Care Team Providers Name Role Phone Unavailable Primary Care Provider Unavailable Encounter Details Date Type Department Care Team Description 06/16/2007 Hospital Encounter HX [facility] Adam Stroud Social History Tobacco Use Types Packs/Day Years Used Date Smoking Tobacco: Never Assessed Sex Assigned at Date Recorded Not on file documented as of this encounter Plan of Treatment Not on filedocumented as of this encounter Visit Diagnoses Not on filedocumented in this encounter
--- OUTSIDE RECORDS SUMMARY | 2022-07-11 09:27 | XMS_ITS | Encounter Summary ---
:1990 Author Organization [facility] Address [address] [place] [address] Care Team Providers Name Role Phone Unavailable Primary Care Provider Unavailable Encounter Details Date Type Department Care Team Description 08/18/2007 Hospital Encounter [facility] Anibal Kim M.D. 200 [place], [place] [phone] (Wo rk) Social History Tobacco Use Types Packs/Day Years Used Date Smoking Tobacco: Never Assessed Sex Assigned at Date Recorded Not on file documented as of this encounter Plan of Treatment Not on filedocumented as of this encounter Visit Diagnoses Not on filedocumented in this encounter
--- OUTSIDE RECORDS SUMMARY | 2022-07-11 09:27 | XMS_ITS | Encounter Summary ---
:1990 Author Organization [facility] Address [address] [place] [address] Care Team Providers Name Role Phone Unavailable Primary Care Provider Unavailable Encounter Details Date Type Department Care Team Description 10/29/2007 Hospital Encounter [facility]X [facility] Nicolasa Toribio D.O. Social History Tobacco Use Types Packs/Day Years Used Date Smoking Tobacco: Never Assessed Sex Assigned at Date Recorded Not on file documented as of this encounter Plan of Treatment Not on filedocumented as of this encounter Visit Diagnoses Not on filedocumented in this encounter
--- OUTSIDE RECORDS SUMMARY | 2022-07-11 09:27 | XMS_ITS | Encounter Summary ---
:1990 Author Organization [facility] Address [address] [place] [address] Care Team Providers Name Role Phone Unavailable Primary Care Provider Unavailable Encounter Details Date Type Department Care Team Description 10/29/2007 Hospital Encounter HX [facility] Nicolasa Toribio D.O. Social History Tobacco Use Types Packs/Day Years Used Date Smoking Tobacco: Never Assessed Sex Assigned at Date Recorded Not on file documented as of this encounter Plan of Treatment Not on filedocumented as of this encounter Visit Diagnoses Not on filedocumented in this encounter
--- OUTSIDE RECORDS SUMMARY | 2022-07-11 09:27 | XMS_ITS | Encounter Summary ---
:1990 Author Organization [facility] Address [address] [place] [address] Care Team Providers Name Role Phone Unavailable Primary Care Provider Unavailable Encounter Details Date Type Department Care Team Description 03/23/2006 Hospital Encounter [facility] Adan Griffin M.D. 200 [place], [place] [phone] (Wo rk) Social History Tobacco Use Types Packs/Day Years Used Date Smoking Tobacco: Never Assessed Sex Assigned at Date Recorded Not on file documented as of this encounter Plan of Treatment Not on filedocumented as of this encounter Visit Diagnoses Not on filedocumented in this encounter
--- OUTSIDE RECORDS SUMMARY | 2022-07-11 09:27 | XMS_ITS | Encounter Summary ---
:1990 Author Organization [facility] Address [address] [place] [address] Care Team Providers Name Role Phone Unavailable Primary Care Provider Unavailable Encounter Details Date Type Department Care Team Description 01/12/2006 Hospital Encounter [facility] Anibal Donohue M.D. 200 [place] [address] (Wo rk) Social History Tobacco Use Types Packs/Day Years Used Date Smoking Tobacco: Never Assessed Sex Assigned at Date Recorded Not on file documented as of this encounter Plan of Treatment Not on filedocumented as of this encounter Visit Diagnoses Not on filedocumented in this encounter
--- OUTSIDE RECORDS SUMMARY | 2022-07-11 09:27 | XMS_ITS | Encounter Summary ---
:1990 Author Organization [facility] Address [address] [place] [address] Care Team Providers Name Role Phone Unavailable Primary Care Provider Unavailable Encounter Details Date Type Department Care Team Description 04/06/2006 Hospital Encounter HX [facility] PSY[facility] Adam Stroud Social History Tobacco Use Types Packs/Day Years Used Date Smoking Tobacco: Never Assessed Sex Assigned at Date Recorded Not on file documented as of this encounter Plan of Treatment Not on filedocumented as of this encounter Visit Diagnoses Not on filedocumented in this encounter
--- OUTSIDE RECORDS SUMMARY | 2022-07-11 09:27 | XMS_ITS | Encounter Summary ---
:1990 Author Organization [facility] Address [address] [place] [address] Care Team Providers Name Role Phone Unavailable Primary Care Provider Unavailable Encounter Details Date Type Department Care Team Description 05/07/2006 Hospital Encounter HX [facility] OBGYN Provider, Histor ical Social History Tobacco Use Types Packs/Day Years Used Date Smoking Tobacco: Never Assessed Sex Assigned at Date Recorded Not on file documented as of this encounter Plan of Treatment Not on filedocumented as of this encounter Visit Diagnoses Not on filedocumented in this encounter
--- OUTSIDE RECORDS SUMMARY | 2022-07-11 09:27 | XMS_ITS | Encounter Summary ---
:1990 Author Organization [facility] Address [address] [place] [address] Care Team Providers Name Role Phone Unavailable Primary Care Provider Unavailable Encounter Details Date Type Department Care Team Description 02/16/2006 Hospital Encounter HX [facility] Adan Griffin M.D. 200 [place], [place] [phone] (Wo rk) Social History Tobacco Use Types Packs/Day Years Used Date Smoking Tobacco: Never Assessed Sex Assigned at Date Recorded Not on file documented as of this encounter Plan of Treatment Not on filedocumented as of this encounter Visit Diagnoses Not on filedocumented in this encounter
--- OUTSIDE RECORDS SUMMARY | 2022-07-11 09:27 | XMS_ITS | Encounter Summary ---
:1990 Author Organization [facility] Address [address] [place] [address] Care Team Providers Name Role Phone Unavailable Primary Care Provider Unavailable Encounter Details Date Type Department Care Team Description 02/17/2006 Hospital Encounter HX [facility] Anibal Donohue M.D. 200 [place] [address] (Wo rk) Social History Tobacco Use Types Packs/Day Years Used Date Smoking Tobacco: Never Assessed Sex Assigned at Date Recorded Not on file documented as of this encounter Plan of Treatment Not on filedocumented as of this encounter Visit Diagnoses Not on filedocumented in this encounter
--- OUTSIDE RECORDS SUMMARY | 2022-07-11 09:27 | XMS_ITS | Encounter Summary ---
:1990 Author Organization [facility] Address [address] [place] [address] Care Team Providers Name Role Phone Unavailable Primary Care Provider Unavailable Encounter Details Date Type Department Care Team Description 11/10/2007 Hospital Encounter HX NO MAP[facility] Adam Stroud Social History Tobacco Use Types Packs/Day Years Used Date Smoking Tobacco: Never Assessed Sex Assigned at Date Recorded Not on file documented as of this encounter Plan of Treatment Not on filedocumented as of this encounter Visit Diagnoses Not on filedocumented in this encounter
--- OUTSIDE RECORDS SUMMARY | 2022-07-11 09:28 | XMS_ITS | Encounter Summary ---
:1990 Author Organization [facility] Address [address] [place] [address] Care Team Providers Name Role Phone Unavailable Primary Care Provider Unavailable Encounter Details Date Type Department Care Team Description 10/06/2005 Hospital Encounter HX [facility] Guy Valera, Ruslan [address] [place], [place] [phone] (Wo rk) Social History Tobacco Use Types Packs/Day Years Used Date Smoking Tobacco: Never Assessed Sex Assigned at Date Recorded Not on file documented as of this encounter Plan of Treatment Not on filedocumented as of this encounter Visit Diagnoses Not on filedocumented in this encounter
--- OUTSIDE RECORDS SUMMARY | 2022-07-11 09:28 | XMS_ITS | Encounter Summary ---
:1990 Author Organization [facility] Address [address] [place] [address] Care Team Providers Name Role Phone Unavailable Primary Care Provider Unavailable Encounter Details Date Type Department Care Team Description 01/30/2005 Hospital Encounter [facility]X [facility] ENT Yvon Castillo M.D. [address] [place], [place] [address] (Wo rk) Social History Tobacco Use Types Packs/Day Years Used Date Smoking Tobacco: Never Assessed Sex Assigned at Date Recorded Not on file documented as of this encounter Plan of Treatment Not on filedocumented as of this encounter Visit Diagnoses Not on filedocumented in this encounter
--- OUTSIDE RECORDS SUMMARY | 2022-07-11 09:28 | XMS_ITS | Encounter Summary ---
:1990 Author Organization [facility] Address [address] [place] [address] Care Team Providers Name Role Phone Unavailable Primary Care Provider Unavailable Encounter Details Date Type Department Care Team Description 12/22/2005 Hospital Encounter HX [facility] PSYCH Adam Stroud Social History Tobacco Use Types Packs/Day Years Used Date Smoking Tobacco: Never Assessed Sex Assigned at Date Recorded Not on file documented as of this encounter Plan of Treatment Not on filedocumented as of this encounter Visit Diagnoses Not on filedocumented in this encounter
--- OUTSIDE RECORDS SUMMARY | 2022-07-11 09:28 | XMS_ITS | Encounter Summary ---
:1990 Author Organization [facility] Address [address] [place] [address] Care Team Providers Name Role Phone Unavailable Primary Care Provider Unavailable Encounter Details Date Type Department Care Team Description 10/01/2005 Hospital Encounter [facility]X [facility] Anibal Donohue M.D. 200 [place] [address] (Wo rk) Social History Tobacco Use Types Packs/Day Years Used Date Smoking Tobacco: Never Assessed Sex Assigned at Date Recorded Not on file documented as of this encounter Plan of Treatment Not on filedocumented as of this encounter Visit Diagnoses Not on filedocumented in this encounter
--- OUTSIDE RECORDS SUMMARY | 2022-07-11 09:28 | XMS_ITS | Encounter Summary ---
:1990 Author Organization [facility] Address [address] [place] [address] Care Team Providers Name Role Phone Unavailable Primary Care Provider Unavailable Encounter Details Date Type Department Care Team Description 11/04/2005 Hospital Encounter [facility]X [facility] Anibal Kim M.D. 200 [place], [place] [phone] (Wo rk) Social History Tobacco Use Types Packs/Day Years Used Date Smoking Tobacco: Never Assessed Sex Assigned at Date Recorded Not on file documented as of this encounter Plan of Treatment Not on filedocumented as of this encounter Visit Diagnoses Not on filedocumented in this encounter
--- OUTSIDE RECORDS SUMMARY | 2022-07-11 09:28 | XMS_ITS | Encounter Summary ---
:1990 Author Organization [facility] Address [address] [place] [address] Care Team Providers Name Role Phone Unavailable Primary Care Provider Unavailable Encounter Details Date Type Department Care Team Description 11/04/2005 Hospital Encounter HX [facility] Guy Valera, Ruslan [address] [place], [place] [address] (Wo rk) Social History Tobacco Use Types Packs/Day Years Used Date Smoking Tobacco: Never Assessed Sex Assigned at Date Recorded Not on file documented as of this encounter Plan of Treatment Not on filedocumented as of this encounter Visit Diagnoses Not on filedocumented in this encounter
--- OUTSIDE RECORDS SUMMARY | 2022-07-11 09:28 | XMS_ITS | Encounter Summary ---
:[address] [facility] Address [address] [place] [address] Care Team Providers Name Role Phone Unavailable Primary Care Provider Unavailable Encounter Details Date Type Department Care Team Description 06/30/2005 Hospital Encounter HX [facility] PSYCH Adam Stroud Social History Tobacco Use Types Packs/Day Years Used Date Smoking Tobacco: Never Assessed Sex Assigned at Date Recorded Not on file documented as of this encounter Plan of Treatment Not on filedocumented as of this encounter Visit Diagnoses Not on filedocumented in this encounter
--- OUTSIDE RECORDS SUMMARY | 2022-07-11 09:28 | XMS_ITS | Encounter Summary ---
:1990 Author Organization [facility] Address [address] [place] [address] Care Team Providers Name Role Phone Unavailable Primary Care Provider Unavailable Encounter Details Date Type Department Care Team Description 01/30/2005 Hospital Encounter HX [facility] Abigail Castillo M.D. [address] [place], [place] [address] (Wo rk) Social History Tobacco Use Types Packs/Day Years Used Date Smoking Tobacco: Never Assessed Sex Assigned at Date Recorded Not on file documented as of this encounter Plan of Treatment Not on filedocumented as of this encounter Visit Diagnoses Not on filedocumented in this encounter
--- OUTSIDE RECORDS SUMMARY | 2022-07-11 09:28 | XMS_ITS | Encounter Summary ---
:1990 Author Organization [facility] Address [address] [place] [address] Care Team Providers Name Role Phone Unavailable Primary Care Provider Unavailable Encounter Details Date Type Department Care Team Description 11/25/2005 Hospital Encounter [facility]X [facility]BG[facility] Provider, Histor ical Social History Tobacco Use Types Packs/Day Years Used Date Smoking Tobacco: Never Assessed Sex Assigned at Date Recorded Not on file documented as of this encounter Plan of Treatment Not on filedocumented as of this encounter Visit Diagnoses Not on filedocumented in this encounter
--- OUTSIDE RECORDS SUMMARY | 2022-07-11 09:28 | XMS_ITS | Encounter Summary ---
:1990 Author Organization [facility] Address [address] [place] [address] Care Team Providers Name Role Phone Unavailable Primary Care Provider Unavailable Encounter Details Date Type Department Care Team Description 09/02/2005 Hospital Encounter [facility]X [facility]BGYN Provider, Histor ical Social History Tobacco Use Types Packs/Day Years Used Date Smoking Tobacco: Never Assessed Sex Assigned at Date Recorded Not on file documented as of this encounter Plan of Treatment Not on filedocumented as of this encounter Visit Diagnoses Not on filedocumented in this encounter
--- OUTSIDE RECORDS SUMMARY | 2022-07-11 09:28 | XMS_ITS | Encounter Summary ---
:1990 Author Organization [facility] Address [address] [place] [address] Care Team Providers Name Role Phone Unavailable Primary Care Provider Unavailable Encounter Details Date Type Department Care Team Description 02/12/2005 Hospital Encounter [facility]X [facility] Yvon Castillo M.D. [address] [place], [place] [address] (Wo rk) Social History Tobacco Use Types Packs/Day Years Used Date Smoking Tobacco: Never Assessed Sex Assigned at Date Recorded Not on file documented as of this encounter Plan of Treatment Not on filedocumented as of this encounter Visit Diagnoses Not on filedocumented in this encounter
--- OUTSIDE RECORDS SUMMARY | 2022-07-11 09:28 | XMS_ITS | Encounter Summary ---
:1990 Author Organization [facility] Address [address] [place] [address] Care Team Providers Name Role Phone Unavailable Primary Care Provider Unavailable Encounter Details Date Type Department Care Team Description 10/06/2005 Hospital Encounter [facility]X [facility] Anibal Harmon M.D. 200 [place], [place] [phone] (Wo rk) Social History Tobacco Use Types Packs/Day Years Used Date Smoking Tobacco: Never Assessed Sex Assigned at Date Recorded Not on file documented as of this encounter Plan of Treatment Not on filedocumented as of this encounter Visit Diagnoses Not on filedocumented in this encounter
--- OUTSIDE RECORDS SUMMARY | 2022-07-11 09:28 | XMS_ITS | Encounter Summary ---
:1990 Author Organization [facility] Address [address] [place] [address] Care Team Providers Name Role Phone Unavailable Primary Care Provider Unavailable Encounter Details Date Type Department Care Team Description 06/30/2005 Hospital Encounter HX [facility] PSYCH Adam Stroud Social History Tobacco Use Types Packs/Day Years Used Date Smoking Tobacco: Never Assessed Sex Assigned at Date Recorded Not on file documented as of this encounter Plan of Treatment Not on filedocumented as of this encounter Visit Diagnoses Not on filedocumented in this encounter
--- OUTSIDE RECORDS SUMMARY | 2022-07-11 09:28 | XMS_ITS | Encounter Summary ---
:1990 Author Organization [facility] Address [address] [place] [address] Care Team Providers Name Role Phone Unavailable Primary Care Provider Unavailable Encounter Details Date Type Department Care Team Description 01/28/2005 Hospital Encounter HX [facility] Guy Valera, Ruslan [address] [place], [place] [address] (Wo rk) Social History Tobacco Use Types Packs/Day Years Used Date Smoking Tobacco: Never Assessed Sex Assigned at Date Recorded Not on file documented as of this encounter Plan of Treatment Not on filedocumented as of this encounter Visit Diagnoses Not on filedocumented in this encounter
--- OUTSIDE RECORDS SUMMARY | 2022-07-11 09:28 | XMS_ITS | Encounter Summary ---
:1992 Author Organization [facility] Address [address] [place] [address] Care Team Providers Name Role Phone Unavailable Primary Care Provider Unavailable Encounter Details Date Type Department Care Team Description 12/09/2005 Hospital Encounter [facility]X [facility] Anibal Donohue M.D. 200 [place] [address] (Wo rk) Social History Tobacco Use Types Packs/Day Years Used Date Smoking Tobacco: Never Assessed Sex Assigned at Date Recorded Not on file documented as of this encounter Plan of Treatment Not on filedocumented as of this encounter Visit Diagnoses Not on filedocumented in this encounter
--- OUTSIDE RECORDS SUMMARY | 2022-07-11 09:28 | XMS_ITS | Encounter Summary ---
:1990 Author Organization [facility] Address [address] [place] [address] Care Team Providers Name Role Phone Unavailable Primary Care Provider Unavailable Encounter Details Date Type Department Care Team Description 09/25/2005 Hospital Encounter HX [facility] Guy Valera, Ruslan [address] [place], [place] [address] (Wo rk) Social History Tobacco Use Types Packs/Day Years Used Date Smoking Tobacco: Never Assessed Sex Assigned at Date Recorded Not on file documented as of this encounter Plan of Treatment Not on filedocumented as of this encounter Visit Diagnoses Not on filedocumented in this encounter
--- OUTSIDE RECORDS SUMMARY | 2022-07-11 09:28 | XMS_ITS | Encounter Summary ---
:1990 Author Organization [facility] Address [address] [place] [address] Care Team Providers Name Role Phone Unavailable Primary Care Provider Unavailable Encounter Details Date Type Department Care Team Description 05/09/2005 Hospital Encounter HX [facility] Guy Valera, Ruslan [address] [place], [place] [address] (Wo rk) Social History Tobacco Use Types Packs/Day Years Used Date Smoking Tobacco: Never Assessed Sex Assigned at Date Recorded Not on file documented as of this encounter Plan of Treatment Not on filedocumented as of this encounter Visit Diagnoses Not on filedocumented in this encounter
--- OUTSIDE RECORDS SUMMARY | 2022-07-11 09:28 | XMS_ITS | Encounter Summary ---
:1990 Author Organization [facility] Address [address] [place] [address] Care Team Providers Name Role Phone Unavailable Primary Care Provider Unavailable Encounter Details Date Type Department Care Team Description 09/03/2005 Hospital Encounter [facility] Anibal Donohue M.D. [address] [place] [address] (Wo rk) Social History Tobacco Use Types Packs/Day Years Used Date Smoking Tobacco: Never Assessed Sex Assigned at Date Recorded Not on file documented as of this encounter Plan of Treatment Not on filedocumented as of this encounter Visit Diagnoses Not on filedocumented in this encounter
--- OUTSIDE RECORDS SUMMARY | 2022-07-11 09:28 | XMS_ITS | Encounter Summary ---
:1990 Author Organization [facility] Address [address] [place] [address] Care Team Providers Name Role Phone Unavailable Primary Care Provider Unavailable Encounter Details Date Type Department Care Team Description 07/02/2005 Hospital Encounter [facility]X [facility] Guy Valera, Ruslan [address] [place], [place] [address] (Wo rk) Social History Tobacco Use Types Packs/Day Years Used Date Smoking Tobacco: Never Assessed Sex Assigned at Date Recorded Not on file documented as of this encounter Plan of Treatment Not on filedocumented as of this encounter Visit Diagnoses Not on filedocumented in this encounter
--- OUTSIDE RECORDS SUMMARY | 2022-07-11 09:28 | XMS_ITS | Encounter Summary ---
:1990 Author Organization [facility] Address [address] [place] [address] Care Team Providers Name Role Phone Unavailable Primary Care Provider Unavailable Encounter Details Date Type Department Care Team Description 10/06/2005 Hospital Encounter [facility] Anibal Harmon M.D. [address] [place], [place] [phone] (Wo rk) Social History Tobacco Use Types Packs/Day Years Used Date Smoking Tobacco: Never Assessed Sex Assigned at Date Recorded Not on file documented as of this encounter Plan of Treatment Not on filedocumented as of this encounter Visit Diagnoses Not on filedocumented in this encounter
--- OUTSIDE RECORDS SUMMARY | 2022-07-11 09:28 | XMS_ITS | Encounter Summary ---
:1990 Author Organization [facility] Address [address] [place] [address] Care Team Providers Name Role Phone Unavailable Primary Care Provider Unavailable Encounter Details Date Type Department Care Team Description 12/10/2005 Hospital Encounter [facility] Adan Griffin M.D. [address] [place], [place] [phone] (Wo rk) Social History Tobacco Use Types Packs/Day Years Used Date Smoking Tobacco: Never Assessed Sex Assigned at Date Recorded Not on file documented as of this encounter Plan of Treatment Not on filedocumented as of this encounter Visit Diagnoses Not on filedocumented in this encounter
--- OUTSIDE RECORDS SUMMARY | 2022-07-11 09:28 | XMS_ITS | Encounter Summary ---
:1992 Author Organization [facility] Address [address] [place] [address] Care Team Providers Name Role Phone Unavailable Primary Care Provider Unavailable Encounter Details Date Type Department Care Team Description 11/21/2005 Hospital Encounter [facility]X [facility] Guy Valera, Ruslan [address] [place], [place] [address] (Wo rk) Social History Tobacco Use Types Packs/Day Years Used Date Smoking Tobacco: Never Assessed Sex Assigned at Date Recorded Not on file documented as of this encounter Plan of Treatment Not on filedocumented as of this encounter Visit Diagnoses Not on filedocumented in this encounter
--- OUTSIDE RECORDS SUMMARY | 2022-07-11 09:28 | XMS_ITS | Encounter Summary ---
:1990 Author Organization [facility] Address [address] [place] [address] Care Team Providers Name Role Phone Unavailable Primary Care Provider Unavailable Encounter Details Date Type Department Care Team Description 07/28/2005 Hospital Encounter [facility] Anibal Harmon M.D. 200 [place], [place] [phone] (Wo rk) Social History Tobacco Use Types Packs/Day Years Used Date Smoking Tobacco: Never Assessed Sex Assigned at Date Recorded Not on file documented as of this encounter Plan of Treatment Not on filedocumented as of this encounter Visit Diagnoses Not on filedocumented in this encounter
--- OUTSIDE RECORDS SUMMARY | 2022-07-11 09:28 | XMS_ITS | Encounter Summary ---
:1990 Author Organization [facility] Address [address] [place] [address] Care Team Providers Name Role Phone Unavailable Primary Care Provider Unavailable Encounter Details Date Type Department Care Team Description 04/07/2005 Hospital Encounter [facility]X [facility] Guy Valera, Ruslan [address] [place], [place] [address] (Wo rk) Social History Tobacco Use Types Packs/Day Years Used Date Smoking Tobacco: Never Assessed Sex Assigned at Date Recorded Not on file documented as of this encounter Plan of Treatment Not on filedocumented as of this encounter Visit Diagnoses Not on filedocumented in this encounter
--- OUTSIDE RECORDS SUMMARY | 2022-07-11 09:28 | XMS_ITS | Encounter Summary ---
:1990 Author Organization [facility] Address [address] [place] [address] Care Team Providers Name Role Phone Unavailable Primary Care Provider Unavailable Encounter Details Date Type Department Care Team Description 07/22/2005 Hospital Encounter [facility] Anibal Harmon M.D. [address] [place], [place] [phone] (Wo rk) Social History Tobacco Use Types Packs/Day Years Used Date Smoking Tobacco: Never Assessed Sex Assigned at Date Recorded Not on file documented as of this encounter Plan of Treatment Not on filedocumented as of this encounter Visit Diagnoses Not on filedocumented in this encounter
--- OUTSIDE RECORDS SUMMARY | 2022-07-11 09:28 | XMS_ITS | Encounter Summary ---
:1990 Author Organization [facility] Address [address] [place] [address] Care Team Providers Name Role Phone Unavailable Primary Care Provider Unavailable Encounter Details Date Type Department Care Team Description 12/22/2005 Hospital Encounter HX [facility] Adam Stroud Social History Tobacco Use Types Packs/Day Years Used Date Smoking Tobacco: Never Assessed Sex Assigned at Date Recorded Not on file documented as of this encounter Plan of Treatment Not on filedocumented as of this encounter Visit Diagnoses Not on filedocumented in this encounter
--- OUTSIDE RECORDS SUMMARY | 2022-07-11 09:28 | XMS_ITS | Encounter Summary ---
:1990 Author Organization [facility] Address [address] [place] [address] Care Team Providers Name Role Phone Unavailable Primary Care Provider Unavailable Encounter Details Date Type Department Care Team Description 06/30/2005 Hospital Encounter [facility] Provider, Histor ical Social History Tobacco Use Types Packs/Day Years Used Date Smoking Tobacco: Never Assessed Sex Assigned at Date Recorded Not on file documented as of this encounter Plan of Treatment Not on filedocumented as of this encounter Visit Diagnoses Not on filedocumented in this encounter
--- OUTSIDE RECORDS SUMMARY | 2022-07-11 09:29 | XMS_ITS | Encounter Summary ---
:1990 Author Organization [facility] Address [address] [place] [address] Care Team Providers Name Role Phone Unavailable Primary Care Provider Unavailable Encounter Details Date Type Department Care Team Description 09/10/2004 Hospital Encounter [facility]X [facility] Provider, Histor ical Social History Tobacco Use Types Packs/Day Years Used Date Smoking Tobacco: Never Assessed Sex Assigned at Date Recorded Not on file documented as of this encounter Plan of Treatment Not on filedocumented as of this encounter Visit Diagnoses Not on filedocumented in this encounter
--- OUTSIDE RECORDS SUMMARY | 2022-07-11 09:29 | XMS_ITS | Encounter Summary ---
:1990 Author Organization [facility] Address [address] [place] [address] Care Team Providers Name Role Phone Unavailable Primary Care Provider Unavailable Encounter Details Date Type Department Care Team Description 12/03/2004 Hospital Encounter [facility] Guy Valera, Ruslan [address] [place], [place] [phone] (Wo rk) Social History Tobacco Use Types Packs/Day Years Used Date Smoking Tobacco: Never Assessed Sex Assigned at Date Recorded Not on file documented as of this encounter Plan of Treatment Not on filedocumented as of this encounter Visit Diagnoses Not on filedocumented in this encounter
--- OUTSIDE RECORDS SUMMARY | 2022-07-11 09:29 | XMS_ITS | Encounter Summary ---
:1990 Author Organization [facility] Address [address] [place] [address] Care Team Providers Name Role Phone Unavailable Primary Care Provider Unavailable Encounter Details Date Type Department Care Team Description 12/30/2004 Hospital Encounter [facility] PSYCH Provider, Histor ical Social History Tobacco Use Types Packs/Day Years Used Date Smoking Tobacco: Never Assessed Sex Assigned at Date Recorded Not on file documented as of this encounter Plan of Treatment Not on filedocumented as of this encounter Visit Diagnoses Not on filedocumented in this encounter
--- OUTSIDE RECORDS SUMMARY | 2022-07-11 09:29 | XMS_ITS | Encounter Summary ---
:1990 Author Organization [facility] Address [address] [place] [address] Care Team Providers Name Role Phone Unavailable Primary Care Provider Unavailable Encounter Details Date Type Department Care Team Description 12/24/2004 Hospital Encounter [facility] Anibal Harmon M.D. [address] [place], [place] [phone] (Wo rk) Social History Tobacco Use Types Packs/Day Years Used Date Smoking Tobacco: Never Assessed Sex Assigned at Date Recorded Not on file documented as of this encounter Plan of Treatment Not on filedocumented as of this encounter Visit Diagnoses Not on filedocumented in this encounter
--- OUTSIDE RECORDS SUMMARY | 2022-07-11 09:29 | XMS_ITS | Encounter Summary ---
:1990 Author Organization [facility] Address [address] [place] [address] Care Team Providers Name Role Phone Unavailable Primary Care Provider Unavailable Encounter Details Date Type Department Care Team Description 12/24/2004 Hospital Encounter [facility] Anibal Harmon M.D. [address] [place], [place] [phone] (Wo rk) Social History Tobacco Use Types Packs/Day Years Used Date Smoking Tobacco: Never Assessed Sex Assigned at Date Recorded Not on file documented as of this encounter Plan of Treatment Not on filedocumented as of this encounter Visit Diagnoses Not on filedocumented in this encounter
--- OUTSIDE RECORDS SUMMARY | 2022-07-11 09:29 | XMS_ITS | Encounter Summary ---
:1990 Author Organization [facility] Address [address] [place] [address] Care Team Providers Name Role Phone Unavailable Primary Care Provider Unavailable Encounter Details Date Type Department Care Team Description 12/10/2004 Hospital Encounter [facility] ENT Yvon Castillo M.D. [address] [place], [place] [address] (Wo rk) Social History Tobacco Use Types Packs/Day Years Used Date Smoking Tobacco: Never Assessed Sex Assigned at Date Recorded Not on file documented as of this encounter Plan of Treatment Not on filedocumented as of this encounter Visit Diagnoses Not on filedocumented in this encounter
--- OUTSIDE RECORDS SUMMARY | 2022-07-11 09:29 | XMS_ITS | Encounter Summary ---
:1990 Author Organization [facility] Address [address] [place] [address] Care Team Providers Name Role Phone Unavailable Primary Care Provider Unavailable Encounter Details Date Type Department Care Team Description 08/21/2004 Hospital Encounter HX [facility] Hill Green M.D. [address] [place] [phone] (Wo rk) Social History Tobacco Use Types Packs/Day Years Used Date Smoking Tobacco: Never Assessed Sex Assigned at Date Recorded Not on file documented as of this encounter Plan of Treatment Not on filedocumented as of this encounter Visit Diagnoses Not on filedocumented in this encounter
--- OUTSIDE RECORDS SUMMARY | 2022-07-11 09:29 | XMS_ITS | Encounter Summary ---
:1990 Author Organization [facility] Address [address] [place] [address] Care Team Providers Name Role Phone Unavailable Primary Care Provider Unavailable Encounter Details Date Type Department Care Team Description 11/20/2003 Hospital Encounter [facility] Provider, Histor ical Social History Tobacco Use Types Packs/Day Years Used Date Smoking Tobacco: Never Assessed Sex Assigned at Date Recorded Not on file documented as of this encounter Plan of Treatment Not on filedocumented as of this encounter Visit Diagnoses Not on filedocumented in this encounter
--- OUTSIDE RECORDS SUMMARY | 2022-07-11 09:29 | XMS_ITS | Encounter Summary ---
:1990 Author Organization [facility] Address [address] [place] [address] Care Team Providers Name Role Phone Unavailable Primary Care Provider Unavailable Encounter Details Date Type Department Care Team Description 08/19/2004 Hospital Encounter HX [facility] PSYCH Adam Stroud Social History Tobacco Use Types Packs/Day Years Used Date Smoking Tobacco: Never Assessed Sex Assigned at Date Recorded Not on file documented as of this encounter Plan of Treatment Not on filedocumented as of this encounter Visit Diagnoses Not on filedocumented in this encounter
--- OUTSIDE RECORDS SUMMARY | 2022-07-11 09:29 | XMS_ITS | Encounter Summary ---
:1990 Author Organization [facility] Address [address] [place] [address] Care Team Providers Name Role Phone Unavailable Primary Care Provider Unavailable Encounter Details Date Type Department Care Team Description 12/09/2004 Hospital Encounter HX [facility] PS[facility]CH Adam Stroud Social History Tobacco Use Types Packs/Day Years Used Date Smoking Tobacco: Never Assessed Sex Assigned at Date Recorded Not on file documented as of this encounter Plan of Treatment Not on filedocumented as of this encounter Visit Diagnoses Not on filedocumented in this encounter
--- OUTSIDE RECORDS SUMMARY | 2022-07-11 09:29 | XMS_ITS | Encounter Summary ---
:1990 Author Organization [facility] Address [address] [place] [address] Care Team Providers Name Role Phone Unavailable Primary Care Provider Unavailable Encounter Details Date Type Department Care Team Description 12/27/2003 Hospital Encounter [facility]X [facility] PSYCH Adam Stroud Social History Tobacco Use Types Packs/Day Years Used Date Smoking Tobacco: Never Assessed Sex Assigned at Date Recorded Not on file documented as of this encounter Plan of Treatment Not on filedocumented as of this encounter Visit Diagnoses Not on filedocumented in this encounter
--- OUTSIDE RECORDS SUMMARY | 2022-07-11 09:29 | XMS_ITS | Encounter Summary ---
:1990 Author Organization [facility] Address [address] [place] [address] Care Team Providers Name Role Phone Unavailable Primary Care Provider Unavailable Encounter Details Date Type Department Care Team Description 05/15/2004 Hospital Encounter HX [facility] PSYCH Adam Stroud Social History Tobacco Use Types Packs/Day Years Used Date Smoking Tobacco: Never Assessed Sex Assigned at Date Recorded Not on file documented as of this encounter Plan of Treatment Not on filedocumented as of this encounter Visit Diagnoses Not on filedocumented in this encounter
--- OUTSIDE RECORDS SUMMARY | 2022-07-11 09:29 | XMS_ITS | Encounter Summary ---
:1990 Author Organization [facility] Address [address] [place] [address] Care Team Providers Name Role Phone Unavailable Primary Care Provider Unavailable Encounter Details Date Type Department Care Team Description 12/15/2004 Hospital Encounter [facility]X [facility] Jin Gregory M.D. [address] [place], [place] [phone] (Wo rk) Social History Tobacco Use Types Packs/Day Years Used Date Smoking Tobacco: Never Assessed Sex Assigned at Date Recorded Not on file documented as of this encounter Plan of Treatment Not on filedocumented as of this encounter Visit Diagnoses Not on filedocumented in this encounter
--- OUTSIDE RECORDS SUMMARY | 2022-07-11 09:29 | XMS_ITS | Encounter Summary ---
:1990 Author Organization [facility] Address [address] [place] [address] Care Team Providers Name Role Phone Unavailable Primary Care Provider Unavailable Encounter Details Date Type Department Care Team Description 07/03/2004 Hospital Encounter [facility]X [facility] Hill Green M.D. [address] [place] [phone] (Wo rk) Social History Tobacco Use Types Packs/Day Years Used Date Smoking Tobacco: Never Assessed Sex Assigned at Date Recorded Not on file documented as of this encounter Plan of Treatment Not on filedocumented as of this encounter Visit Diagnoses Not on filedocumented in this encounter
--- OUTSIDE RECORDS SUMMARY | 2022-07-11 09:29 | XMS_ITS | Encounter Summary ---
:1990 Author Organization [facility] Address [address] [place] [address] Care Team Providers Name Role Phone Unavailable Primary Care Provider Unavailable Encounter Details Date Type Department Care Team Description 10/31/2003 Hospital Encounter [facility] Hill Green M.D. [address] [place] [phone] (Wo rk) Social History Tobacco Use Types Packs/Day Years Used Date Smoking Tobacco: Never Assessed Sex Assigned at Date Recorded Not on file documented as of this encounter Plan of Treatment Not on filedocumented as of this encounter Visit Diagnoses Not on filedocumented in this encounter
--- OUTSIDE RECORDS SUMMARY | 2022-07-11 09:29 | XMS_ITS | Encounter Summary ---
:1990 Author Organization [facility] Address [address] [place] [address] Care Team Providers Name Role Phone Unavailable Primary Care Provider Unavailable Encounter Details Date Type Department Care Team Description 12/15/2003 Hospital Encounter HX [facility] PSYCH Aung Trinh, D.O. [address] [place], [place] [address] (Wo rk) Social History Tobacco Use Types Packs/Day Years Used Date Smoking Tobacco: Never Assessed Sex Assigned at Date Recorded Not on file documented as of this encounter Plan of Treatment Not on filedocumented as of this encounter Visit Diagnoses Not on filedocumented in this encounter
--- OUTSIDE RECORDS SUMMARY | 2022-07-11 09:29 | XMS_ITS | Encounter Summary ---
:1990 Author Organization [facility] Address [address] [place] [address] Care Team Providers Name Role Phone Unavailable Primary Care Provider Unavailable Encounter Details Date Type Department Care Team Description 08/27/2004 Hospital Encounter HX [facility] PSYCH Adam Stroud Social History Tobacco Use Types Packs/Day Years Used Date Smoking Tobacco: Never Assessed Sex Assigned at Date Recorded Not on file documented as of this encounter Plan of Treatment Not on filedocumented as of this encounter Visit Diagnoses Not on filedocumented in this encounter
--- OUTSIDE RECORDS SUMMARY | 2022-07-11 09:29 | XMS_ITS | Encounter Summary ---
:1990 Author [address] [facility] Address [address] [place] [address] Care Team Providers Name Role Phone Unavailable Primary Care Provider Unavailable Encounter Details Date Type Department Care Team Description 01/08/2005 Hospital Encounter [facility] Provider, Historical [facility] Social History Tobacco Use Types Packs/Day Years Used Date Smoking Tobacco: Never Assessed Sex Assigned at Date Recorded Not on file documented as of this encounter Plan of Treatment Not on filedocumented as of this encounter Procedures Procedure Name Priority Date/Time Associated Diagnosis Comme nts DX HAND RIGHT 3+ Routine 01/08/2005 10:22 AM Resu lts for this VIEWS CDT procedure are i n the results section. documented in this encounter Results DX Hand Right 3+ Views (01/08/2005 10:22 AM CDT) Anatomical Region Laterality Modality Upper Extremity, Hand Right Radiographic Imagi ng Specimen (Source) Anatomical Collection Method Collection Time Re ceived Time Location / / Volume Laterality 01/08/2005 10:22 AM CDT Narrative 01/08/2005 10:22 AM CDT Originally Signed By Contributor_system, [facility] Exam: Right thumb series. Indication: Right thumb injury. Impression: Examination reveals no evide nce of fracture or dislocation. If pain persists, short ter m radiographic follow-up is suggested to exclude the possibility of a subtle Salter-Arce type I injury. Electronically Signed 01/08/2005 Reported By: Jaxon Caballero ? Transcribed: 01/08/2005 ([id number]) ??[email or web address] CC: Jean Marie A ??Val Henriquez; Crescencio Mcdowell MD Procedure Note Provider, Historical - 03/05/2017Formatt ing of this note might be different from the original. Originally Signed By Contributor_system [facility] Exam: Right thumb series. Indication: Right thumb injury. Impression: Examination reveals no evide nce of fracture or dislocation. If pain persists, short ter m radiographic follow-up is suggested to exclude the possibility of a subtle Salter-Arce type I injury. Electronically Signed 01/08/2005 Reported By: Jaxon Caballero MD Transcribed: 01/08/2005 ([id number]) [email or web address] CC: Jean Marie Henriquez; Crescnecio medina MD Historical Provider IMG DIAGNOSTIC IMAGING PROCE DURES documented in this encounter Visit Diagnoses Not on filedocumented in this encounter
--- OUTSIDE RECORDS SUMMARY | 2022-07-11 09:29 | XMS_ITS | Encounter Summary ---
:1990 Author Organization [facility] Address [address] [place] [address] Care Team Providers Name Role Phone Unavailable Primary Care Provider Unavailable Encounter Details Date Type Department Care Team Description 05/22/2004 Hospital Encounter [facility] Hill Green M.D. [address] [place] [phone] (Wo rk) Social History Tobacco Use Types Packs/Day Years Used Date Smoking Tobacco: Never Assessed Sex Assigned at Date Recorded Not on file documented as of this encounter Plan of Treatment Not on filedocumented as of this encounter Visit Diagnoses Not on filedocumented in this encounter
--- OUTSIDE RECORDS SUMMARY | 2022-07-11 09:29 | XMS_ITS | Encounter Summary ---
:[address] [facility] Address [address] [place] [address] Care Team Providers Name Role Phone Unavailable Primary Care Provider Unavailable Encounter Details Date Type Department Care Team Description 11/01/2003 Hospital Encounter HX [facility] PSYCH Adam Stroud Social History Tobacco Use Types Packs/Day Years Used Date Smoking Tobacco: Never Assessed Sex Assigned at Date Recorded Not on file documented as of this encounter Plan of Treatment Not on filedocumented as of this encounter Visit Diagnoses Not on filedocumented in this encounter
--- OUTSIDE RECORDS SUMMARY | 2022-07-11 09:29 | XMS_ITS | Encounter Summary ---
:1990 Author Organization [facility] Address [address] [place] [address] Care Team Providers Name Role Phone Unavailable Primary Care Provider Unavailable Encounter Details Date Type Department Care Team Description 12/30/2004 Hospital Encounter [facility] Hill Green M.D. [address] [place] [phone] (Wo rk) Social History Tobacco Use Types Packs/Day Years Used Date Smoking Tobacco: Never Assessed Sex Assigned at Date Recorded Not on file documented as of this encounter Plan of Treatment Not on filedocumented as of this encounter Visit Diagnoses Not on filedocumented in this encounter
--- OUTSIDE RECORDS SUMMARY | 2022-07-11 09:29 | XMS_ITS | Encounter Summary ---
:1990 Author Organization [facility] Address [address] [place] [address] Care Team Providers Name Role Phone Unavailable Primary Care Provider Unavailable Encounter Details Date Type Department Care Team Description 01/27/2005 Hospital Encounter HX [facility] Hill Green M.D. [address] [place] [phone] (Wo rk) Social History Tobacco Use Types Packs/Day Years Used Date Smoking Tobacco: Never Assessed Sex Assigned at Date Recorded Not on file documented as of this encounter Plan of Treatment Not on filedocumented as of this encounter Visit Diagnoses Not on filedocumented in this encounter
--- OUTSIDE RECORDS SUMMARY | 2022-07-11 09:30 | XMS_ITS | Encounter Summary ---
:1990 Author Organization [facility] Address [address] [place] [address] Care Team Providers Name Role Phone Unavailable Primary Care Provider Unavailable Encounter Details Date Type Department Care Team Description 08/17/2003 Hospital Encounter HX [facility] Hill Green M.D. [address] [place] [phone] (Wo rk) Social History Tobacco Use Types Packs/Day Years Used Date Smoking Tobacco: Never Assessed Sex Assigned at Date Recorded Not on file documented as of this encounter Plan of Treatment Not on filedocumented as of this encounter Visit Diagnoses Not on filedocumented in this encounter
--- OUTSIDE RECORDS SUMMARY | 2022-07-11 09:30 | XMS_ITS | Encounter Summary ---
:1990 Author Organization [facility] Address [address] [place] [address] Care Team Providers Name Role Phone Unavailable Primary Care Provider Unavailable Encounter Details Date Type Department Care Team Description 02/11/2003 Hospital Encounter [facility] Guy Trinh D.O. [address] [place], [place] [address] (Wo rk) Social History Tobacco Use Types Packs/Day Years Used Date Smoking Tobacco: Never Assessed Sex Assigned at Date Recorded Not on file documented as of this encounter Plan of Treatment Not on filedocumented as of this encounter Visit Diagnoses Not on filedocumented in this encounter
--- OUTSIDE RECORDS SUMMARY | 2022-07-11 09:30 | XMS_ITS | Encounter Summary ---
:1990 Author Organization [facility] Address [address] [place] [address] Care Team Providers Name Role Phone Unavailable Primary Care Provider Unavailable Encounter Details Date Type Department Care Team Description 2002 Hospital Encounter [facility] Guy Valera, Ruslan [address] [place], [place] [address] (Wo rk) Social History Tobacco Use Types Packs/Day Years Used Date Smoking Tobacco: Never Assessed Sex Assigned at Date Recorded Not on file documented as of this encounter Plan of Treatment Not on filedocumented as of this encounter Visit Diagnoses Not on filedocumented in this encounter
--- OUTSIDE RECORDS SUMMARY | 2022-07-11 09:30 | XMS_ITS | Encounter Summary ---
:1990 Author Organization [facility] Address [address] [place] [address] Care Team Providers Name Role Phone Unavailable Primary Care Provider Unavailable Encounter Details Date Type Department Care Team Description 05/10/2003 Hospital Encounter HX [facility] Hill Green M.D. [address] [place] [phone] (Wo rk) Social History Tobacco Use Types Packs/Day Years Used Date Smoking Tobacco: Never Assessed Sex Assigned at Date Recorded Not on file documented as of this encounter Plan of Treatment Not on filedocumented as of this encounter Visit Diagnoses Not on filedocumented in this encounter
--- OUTSIDE RECORDS SUMMARY | 2022-07-11 09:30 | XMS_ITS | Encounter Summary ---
:1990 Author Organization [facility] Address [address] [place] [address] Care Team Providers Name Role Phone Unavailable Primary Care Provider Unavailable Encounter Details Date Type Department Care Team Description 06/01/2003 Hospital Encounter HX [facility] Hill Green M.D. [address] [place] [phone] (Wo rk) Social History Tobacco Use Types Packs/Day Years Used Date Smoking Tobacco: Never Assessed Sex Assigned at Date Recorded Not on file documented as of this encounter Plan of Treatment Not on filedocumented as of this encounter Visit Diagnoses Not on filedocumented in this encounter
--- OUTSIDE RECORDS SUMMARY | 2022-07-11 09:30 | XMS_ITS | Encounter Summary ---
:1990 Author Organization [facility] Address [address] [place] [address] Care Team Providers Name Role Phone Unavailable Primary Care Provider Unavailable Encounter Details Date Type Department Care Team Description 06/21/2002 Hospital Encounter [facility] Karlo Dawkins M.D. Social History Tobacco Use Types Packs/Day Years Used Date Smoking Tobacco: Never Assessed Sex Assigned at Date Recorded Not on file documented as of this encounter Plan of Treatment Not on filedocumented as of this encounter Visit Diagnoses Not on filedocumented in this encounter
--- OUTSIDE RECORDS SUMMARY | 2022-07-11 09:30 | XMS_ITS | Clinical Summary ---
:1990 Author Organization [employer] [facility] [place] [address] Care Team Providers Name Role Phone Nancy Peacock Primary Care Provider Charissa Watkins PsyD, ESETLLA Unavailable [phone] Allergies Active Allergy Reactions Severity Noted Date Comments Citalopram Other - Describe In 08/04/2017 Suicidal thoughts Comment [facility] Dust Rash 02/26/2018 Nitrofurantoin Rash 12/28/2017 Monohyd/M-Cryst Naproxen Itching 09/09/2010 Medications Medication Sig Dispensed Refills Start End Status Date Date ibuprofen (ADVIL; Take 1 Tablet 30 Tablet 0 05/19/20 Active MOTRIN) 600 mg (600 mg) by 22 tabletIndications: mouth every 6 Dysmenorrhea hours if needed for Pain. Maximum of 3200 mg in 24 hours. drospirenone-ethinyl Take 1 tablet 84 Tablet 3 06/20/20 Active estradioL (JOSE A) once daily, 22 3-0.03 mg skipping placebo tabletIndications: week for 2 Oral contraceptive use months in a row, so taking placebo week only every 3 months. triamcinolone Apply topically 30 g 2 09/17/2006/20/ (ARISTOCORT) 0.1 % to affected 2021 (*Med ointmentIndications: area(s) 2 times complete/Regim Atopic dermatitis, daily. e n unspecified type com plete/Level of care change) multivitamin (MVI) Take 1 tablet by 0 02/05/2005/30 3/ Discontinued tablet mouth once 2021 (*Med daily. complete/R egim en complete/L evel of care change) cholecalciferol Take one by 0 03/02/2006/20/ Di scontinued (VITAMIN D3) 5,000 mouth every 2021 (*Med unit other day complete/R egim capsuleIndications: en Vitamin D deficiency complete/Level of care change) oxyCODONE-acetaminophe Take 1 tablet by 30 tablet 0 07/05/2006/20/ Discontinued n, 5-325 mg, mouth every 6 2021 (*M ed (PERCOCET) 5-325 mg hours if needed complete/Regim per tabletIndications: for Pain Max en Left hip impingement acetaminophen complete/Level syndrome dose: 4000mg in of c are 24 hrs. change) lamoTRIgine (LAMICTAL) STARTING 45 Tablet 0 02/24/2006/20/ Discontinued 100 mg 02/23/2021: 100mg 2021 (*M ed tabletIndications: Qday x 2 weeks, complete/Regim Borderline personality then 150mg Qday en disorder (HC), compl ete/Level Depression, of care unspecified depression change) type ARIPiprazole (ABILIFY) Take 1 Tablet (2 30 Tablet 2 03/26/2006/20/ Discontinued 2 mg mg) by mouth 2021 (*Med tabletIndications: once daily. complete/Regim Depression, en unspecified depression complete/Level type of care change) FLUoxetine (PROZAC) 20 Take 2 Capsules 60 Capsule 2 03/26/2006/20/ Discontinued mg capsuleIndications: (40 mg) by mouth 2021 (*Med Depression, once daily. comple te/Regim unspecified depression en type, Borderline com plete/Level personality disorder of care (HC) change) lamoTRIgine (LAMICTAL) 1 tablet daily 30 Tablet 2 03/26/20/ Discontinued 100 mg for 1 week, then 2021 (*M ed tabletIndications: increase to 2 complete/Regim Depression, tablets daily en unspecified depression complete/Level type, Borderline of care personality disorder change) (HC) magnesium citrate Drink 30 mL 295 mL 0 11/29/1906/20/ Discontinued (CITRATE OF every 1-2 hours 2021 (* Med MAG)Indications: until you have a complete/Regim Constipation, bowel movement. en unspecified complete /Level constipation type of care change) medroxyPROGESTERone Take 10mg 31 Tablet 0 05/19/20 (Provera) 10 mg tablets three 2021 (*Med tabletIndications: times a day for complete/Regim Dysmenorrhea, Vaginal 7 days followed en bleeding, Irregular by 10mg DAILY complete/Level periods for 10 more of care days. change) Active Problems Problem Noted Date Alcohol use disorder, severe, dependence 06/20/2020 Depression 06/09/2019 Controlled substance agreement signed 10/15/2018 Overview: 07/29/18 signed .Adina Marinelli DNP, ROVER TENDER, VENDING MACHINE COLLECTOR/psychiatry Controlled substance agreement signed 08/06/2018 Overview: Felice. Controlled substance agreement miguel Peacock. Nancy Peacock PA-C, Family Medicine..... ................08/06/2018 2:32 PM s/p left hip arthroscopic labral repair, fremoral & ac etbaular osteoplasty 03/01/2018 and acetabular chondroplasty DOS: 02/26/2018 Dr. Queen Labral tear of left hip joint 02/25/2018 Left hip impingement syndrome 02/25/2018 History of ADHD 01/27/2018 Borderline personality disorder 01/27/2018 Moderate episode of recurrent major depressive disorde r 08/06/2017 Bulging of lumbar intervertebral disc L5-S1 07/16/2017 Acute midline low back pain with left-sided sciatica 1 Left Ankle weakness to dorsiflexion and plantar flexio n 07/16/2017 MEAGHAN (generalized anxiety disorder) 07/09/2017 Tear of left acetabular labrum Resolved Problems Problem Noted Date Resolved Date Depression 01/27/2018 04/14/2019 Moderate single current episode of major depressive disorder 08/05/2017 08/06/2017 Depo contraception 02/19/2016 06/20/2022 Contraception management 03/19/2015 02/19/2016 Attention deficit hyperactivity disorder (ADHD), 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 Nancy Peacock PA-C, Family Medicine.....................02/19/2016 10:49 AM Encounters Date Type Specialty Care Team Description 07/10/2022 Telemedicine Roberto Carlos Toro, PhD, [facility] 07/08/2022 Telephone Nancy Peacock, Appoint ment (consult to PA CCTV TECHNICIAN) 07/03/2022 Telemedicine Roberto Carlos Toro, PhD, [facility] 07/03/2022 Travel 06/20/2022 Office Visit Nancy Peacock, Menstru al Problem PA (Patient starte d bleeding in Oct and has been bleeding on and off since oct, started ag ain on May 01) 06/20/2022 Travel 06/19/2022 Telemedicine Roberto Carlos Toro, PhD, [facility] 06/13/2022 Medical Messaging Nancy Peacock, Bi rth Control PA 06/05/2022 Telemedicine Roberto Carlos Toro, PhD, [facility] 06/05/2022 Travel 05/29/2022 Telemedicine Roberto Carlos Toro, PhD, [facility] 05/29/2022 Travel 05/22/2022 Telemedicine Roberto Carlos Toro, PhD, [facility] 05/22/2022 Travel 05/19/2022 Emergency Marquez Riley MD Dysmenorrh ea (Primary Dx); Vaginal bleedin g; Irregular perio ds 05/19/2022 Travel 05/19/2022 Nurse Triage Nancy Peacock, Vaginal Bleeding PA 05/09/2022 Nurse Triage Nancy Peacock, Contrac eption (Questions PA ) 05/01/2022 Telemedicine Roberto Carlos Toro, PhD, [facility] 05/01/2022 Travel 04/24/2022 Telemedicine Roberto Carlos Toro, PhD, [facility] 04/24/2022 Travel 04/17/2022 Phone Office Visit Roberto Carlos Toro, PhD, [facility] 04/10/2022 Phone Office Visit Roberto Carlos Toro, PhD, [facility] from Last 3 Months Immunizations Name Administration Dates Next Due DTaP 06/16/1997, 05/16/1993, 01/11/1993, 1992, 1992 HIB HbOC (HibTITER) 01/11/1993, 1992, 1992 Hepatitis A (Adult) 11/04/2013 Hepatitis B (Peds) 01/11/1993, 1992, 1992 Hepatitis B, Unspecified 01/11/1993, 1992, 1992 Hib Conjugate, Unspecified 01/11/1993, 1992, 2 Human Papilloma Virus Vaccine 03/21/2014, 11/04/2013, 2012 Inactivated Polio Vaccine 06/16/1997, 06/16/1993, 1992 , 1992 Influenza Virus, Unspecified 07/09/2009, 08/04/2008, 003 Influenza, IIV3 (Age >=3 years) 07/09/2009, 08/04/2008, 1205/2003 MMR 05/28/1998, 12/06/1993 Oral Polio Vaccine 06/16/1997, 06/16/1993, 1992, 1992 Td (Age >=7 Years) 05/09/2005 Td, Preservative Free (age >= 7 03/25/2013, 05/09/2005 Years) Tdap 10/14/2012 Family History Medical History Relation Name Comments Good Health Brother 3 Good Health Brother 4 Good Health Brother 5 Good Health Father Cancer Maternal Grandmother Cancer-ovarian Mother Diabetes Mother Type 2 Cancer-breast Paternal Aunt Cancer Paternal Grandmother Good Health Sister 2 Relation Name Status Comments Brother 1 Alive Brother 2 Alive Brother 3 Brother 4 Brother 5 Father Alive Maternal Grandmother Mother Alive Paternal Aunt Paternal Grandmother Sister 1 Alive Sister 2 Social History Tobacco Use Types Packs/Day Years Used Date Current Every Day Smoker Cigarettes 0.5 Rosalio t: 11/18/2014 Smokeless Tobacco: Never Used Tobacco Cessation: Ready to Quit: Yes; C ounseling Given: Yes Comments: about 1 per day Alcohol Use Standard Drinks/Week Comments Yes 0 (1 standard drink = 0.6 oz pure Last u sed 08/2017 7-10 drinks a alcohol) night on wknd Alcohol Habits Answer Date Recorded How often do you have a drink Monthly or less 11/29/2019 containing alcohol? How many drinks containing alcohol do 1 or 2 you have on a typical day when you are drinking? How often do you have six or more Not asked drinks on one occasion? Comment: Last used 08/2017 7-10 drinks a 01/28/20 18 night on wknd Sex Assigned at Date Recorded Not on file COVID-19 Exposure Response Date Recorded In the last 10 days, have you been in contact with No / Unsu re 07/03/2022 7:21 AM CDT someone who was confirmed or suspected to have Coronavirus/COVID-19? Obstetrics History Last Filed Vital Signs Vital Sign Reading Time Taken Comments Blood Pressure 118/66 06/20/2022 7:38 AM CDT Pulse 74 06/20/2022 7:38 AM CDT Temperature 36.4 ??C (97.5 ??F) 05/19/2022 10:08 AM CDT Respiratory Rate 16 05/19/2022 10:08 AM CDT Oxygen Saturation 97% 05/19/2022 10:08 AM CDT Inhaled Oxygen Concentration - - Weight 129.2 kg (284 lb 12.8 oz) 06/20/2022 7:38 AM CDT Height 162.6 cm (5' 4) 05/19/2022 10:08 AM CDT Body Mass Index 48.89 05/19/2022 10:08 AM CDT Plan of Treatment Upcoming Encounters Date Type Specialty Care Team Description 07/17/2022 Telemedicine Roberto Carlos Toro, PhD, [address] [phone] (Rina corrigan) 07/24/2022 Telemedicine Roberto Carlos Toro, PhD, [address] [address] (Rina corrigan) 07/31/2022 Telemedicine Roberto Carlos Toro, PhD, [address] [address] (Rina corrigan) 08/07/2022 Telemedicine Roberto Carlos Toro, PhD, [address] [address] (Wo rk) 08/14/2022 Telemedicine Roberto Carlos Toro, PhD, [address] [address] (Wo rk) 08/20/2022 Telemedicine Roberto Carlos Toro, PhD, [address] [address] (Wo rk) 08/28/2022 Telemedicine Roberto Carlos Toro, PhD, [address] 5 [phone] (Wo rk) 09/04/2022 Telemedicine Roberto Carlos Toro, PhD, [address] [address] [phone] (Wo rk) 09/11/2022 Telemedicine Roberto Carlos Toro, PhD, [address] [address] (Wo rk) 09/18/2022 Telemedicine Roberto Carlos Toro, PhD, [address] [address] (Wo rk) 09/25/2022 Telemedicine Roberto Carlos Toro, PhD, [address] [address] (Wo rk) Health Maintenance Due Date Last Done Comments COVID-19 vaccine series (#1) 1992 Pneumococcal series for age 19-64 1998 (1 - PCV) Hepatitis C screening for age 0805/12/2010 18-79 Pap test for age 21-65 11/19/2020 11/19/2017, 08/24/2015 BMI (ht and wt on same day) for 07/05/2021 07/05/2020, 03/29, age 18+ 02/04/2019, Additional history exists Influenza for age 9-49 05/29/2022 07/09/2009, 07/09/2009, 08/04/2008, Additional history exists Tetanus booster 03/25/2023 03/25/2013, 10/14/2012, 05/09/2005, Additional history exists Depression screening for age 12+ 04/03/2023 04/03/2022, , 04/17/2021, Additional history exists Tdap Completed 10/14/2012 Medical Devices Implanted Type Area Cabin Cleaner Device Shelf Model / Identifier Expiration Date Ser ial / Lot Ancr Sut 1.4mm Nanotack W/ Flex Raise Drill Operator - [id number] Left : Hip [place] 01/20/2019 [id number] / Implanted: Qty: 1 on 02/26/2018 by Rakan Queen MD at [facility] / [id number] Procedures Procedure Name Priority Date/Time Associated Comments Diagnosis US PELVIS COMPLETE TA STAT 05/19/2022 11:20 Re sults for this AND TV AM CDT procedure are i n the results section. TYPE & SCREEN STAT 05/19/2022 10:39 Results fo r this AM CDT procedure are i n the results section. RED CELL MORPHOLOGY STAT 05/19/2022 10:39 Resu lts for this AM CDT procedure are i n the results section. PLATELET ESTIMATE STAT 05/19/2022 10:39 Result s for this AM CDT procedure are i n the results section. MANUAL DIFFERENTIAL STAT 05/19/2022 10:39 Resu lts for this AM CDT procedure are i n the results section. CBC WITH AUTO STAT 05/19/2022 10:39 Results fo r this DIFFERENTIAL AM CDT procedure are i n the results section. ,SERUM STAT 05/19/2022 10:39 Results for this AM CDT procedure are i n the results section. BASIC METABOLIC PANEL STAT 05/19/2022 10:39 Re sults for this AM CDT procedure are i n the results section. CBC WITH AUTO STAT 05/19/2022 10:39 Results fo r this DIFFERENTIAL AM CDT procedure are i n the results section. from Last 3 Months Results US PELVIS COMPLETE TA AND TV (05/19/2022 11:20 AM CDT) Anatomical Region Laterality Modality Pelvis Ultrasound Specimen (Source) Anatomical Collection Method Collection Time Re ceived Time Location / / Volume Laterality 05/19/2022 12:09 PM CDT Narrative 05/19/2022 12:09 PM CDT For Patients: ??As a result of the Cures Act, medical imaging exams and procedure report s are released immediately into your [facility]. ??You may view this report before your referring provider. ??If you have questions, please contact your health care provider. Indication: Vaginal bleeding Technique: Ultrasound examination of the pelvis was performed. The study was performed transabdominally and transvaginally. Color Doppler and spectral Doppler was performed to evaluate the ovaries. Comparison: November 28, 2021 Findings: The uterus measures 7.1 x 4.9 x 4.9 cent imeters which is normal. Myometrial echotexture is normal. The endometrial canal measures 1.2 centimeters which is considered normal. The appearance is a homogeneous by ultrasound criteria Right ovary measures 3.2 x 2.9 x 2.2 alta timeters and the left ovary measures 3.3 x 2.5 x 2.5 centimeters. Doppler flow is noted bilaterally. A small amount of free fluid is noted in the left adnexa. Impression: Unremarkable examination. No specific vi sible cause for abnormal bleeding. Dictated by Gonzalo lAexis MD @ 12:09:39 PM (Electronically Signed) Procedure Note Gonzalo Alexis MD - 05/19/2022Format ting of this note might be different from the original. For Patients: As a result of the Cures Act, medical imaging exams and procedure reports are released immediately into your electronic medical record. You may view this report before your referring provider. If you have questions, please contact [facility] health care provider. Indication: Vaginal bleeding Technique: Ultrasound examination of the pelvis was performed. The study was performed transabdominally and transvaginally. Color Doppler and spectral Doppler was performed to evaluate the ovaries. Comparison: November 28, 2021 Findings: The uterus measures 7.1 x 4.9 x 4.9 cent imeters which is normal. Myometrial echotexture is normal. The endometrial canal measures 1.2 centimeters which is considered normal. The appearance is a homogeneous by ultrasound criteria Right ovary measures 3.2 x 2.9 x 2.2 alta timeters and the left ovary measures 3.3 x 2.5 x 2.5 centimeters. Doppler flow is noted bilaterally. A small amount of free fluid is noted in the left adnexa. Impression: Unremarkable examination. No specific vi sible cause for abnormal bleeding. Dictated by Gonzalo Alexis MD @ 12:09:39 PM (Electronically Signed) Marquez Riley MD US (ABNORMAL) CBC WITH AUTO DIFFERENTIAL (05/19/2022 10:39 AM [facility]) [facility] Method Time Signature WHITE BLOOD 14.5 (H) 4.5 - 11.0 05/19/2022 [place] COUNT thou/cu mm 11:[address] [facility] RED BLOOD COUNT 4.77 4.00 - 05/19/2022 [place] 5.20 11:[address] [facility] mil/cu mm LABORATORY HEMOGLOBIN 13.1 12.0 - 05/19/2022 [place] 16.0 g/dL 11:[address] [facility] HEMATOCRIT 41.8 33.0 - 05/19/2022 [place] 51.0 % 11:[address] [facility] MCV 88 80 - 100 05/19/2022 [place] fL 11:[address] [facility] MCH 27.5 26.0 - 05/19/2022 [place] 34.0 pg 11:[address] [facility] MCHC 31.3 (L) 32.0 - 05/19/2022 [place] 36.0 g/dL 11:[address] [facility] RDW 14.4 11.5 - 05/19/2022 [place] 15.5 % 11:[address] [facility] PLATELET COUNT 352 140 - 440 05/19/2022 [place] thou/cu mm 11:[address] [facility] MPV 9.6 6.5 - 11.0 05/19/2022 [place] fL 11:[address] [facility] Specimen Anatomical Collection Method Collection Time Receive d Time (Source) Location / / Volume Laterality Blood BLOOD SPECIMEN / [place] / 05/19/2022 10:39 022 Unknown Unknown AM CDT 10:44 AM CDT Marquez Riley MD HEMATOLOGY Performing Organization Address City/[facility]/ZIP Code Phon e Number [facility] [address] [place] [address] RED CELL MORPHOLOGY (05/19/2022 10:39 AM CDT) [facility] Method Time Signature RBC COMMENT RBC RBC 05/19/2022 [place] morphology morphology 11:22 AM MEDICAL appears appears [facility]T CENTER normal normal, RBC LABORATORY morphology within normal limits for newborns. Specimen Anatomical Collection Method Collection Time Receive d Time (Source) Location / / Volume Laterality Blood BLOOD SPECIMEN / [place] / 05/19/2022 10:39 022 Unknown Unknown AM CDT 10:44 AM CDT Marquez Riley MD HEMATOLOGY Performing Organization Address [facility]/ZIP Code Phon e Number [facility] [address] [place] [address] PLATELET ESTIMATE (05/19/2022 10:39 AM CDT) [facility] Method Time Signature PLATELET Adequate Adequate, No 05/19/2022 [facility] ESTIMATE estimate 11:22 AM T [facility] Specimen Anatomical Collection Method Collection Time Receive d Time (Source) Location / / Volume Laterality Blood BLOOD SPECIMEN / [place] / 05/19/2022 10:39 022 Unknown Unknown AM CDT 10:44 AM CDT Marquez Riley MD HEMATOLOGY Performing Organization Address City/[facility]/ZIP Code Phon e Number [facility] [address] [place] [address] (ABNORMAL) MANUAL DIFFERENTIAL (05/19/2022 10:39 AM CDT) [facility] Method Time Signature % NEUTROPHILS 70.0 % 05/19/2022 [place] 11:22 AM [facility] % LYMPHOCYTES 26.0 % 05/19/2022 [place] 11:22 AM [facility] % MONOCYTES 2.0 % 05/19/2022 [place] 11:22 AM [facility] % EOSINOPHILS 2.0 % 05/19/2022 [place] 11:22 AM [facility] % BASOPHILS 0.0 % 05/19/2022 [place] 11:[address] [facility] NEUTROPHILS 10.1 (H) 1.7 - 7.0 05/19/2022 [place] ABSOLUTE thou/cu 11:[address] [facility] mm LABORATORY LYMPHOCYTES 3.8 (H) 0.9 - 2.9 05/19/2022 [place] ABSOLUTE thou/cu 11:[address] [facility] mm LABORATORY MONOCYTES 0.3 <0.9 05/19/2022 [place] ABSOLUTE thou/cu 11:[address] [facility] mm LABORATORY EOSINOPHILS 0.3 <0.5 05/19/2022 [place] ABSOLUTE thou/cu 11:[address] [facility] mm LABORATORY BASOPHILS 0.0 <0.3 05/19/2022 [place] ABSOLUTE thou/cu 11:[address] [facility] mm LABORATORY Specimen Anatomical Collection Method Collection Time Receive d Time (Source) Location / / Volume Laterality Blood BLOOD SPECIMEN / [place] / 05/19/2022 10:39 022 Unknown Unknown AM CDT 10:44 AM CDT Marquez Riley MD HEMATOLOGY Performing Organization Address City/[facility]/ZIP Code Phon e Number [facility] [address] [place] [address] ,SERUM (05/19/2022 10:39 AM CDT) Analysis Performed At Patho logist Time Signature ,SERU Negative Negative 05/19/2022 [facility] 10:[address] [facility] Specimen Anatomical Collection Method Collection Time Receive d Time (Source) Location / / Volume Laterality Blood BLOOD SPECIMEN / [place] / 05/19/2022 10:39 022 Unknown Unknown AM CDT 10:44 AM CDT Marquez Riley MD CHEMISTRY Performing Organization Address City/[facility]/ZIP Code Phon e Number [facility] [address] [place] [address] TYPE AND SCREEN ONLY (05/19/2022 10:39 AM CDT) Patholo gist Method Time Signature ABORH A Rh 05/19/2022 [place] Positive 11:18 AM [facility]T [facility] BLOOD BANK ANTIBODY Negative Negative 05/19/2022 [place] SCREEN 11:[address] [facility] BLOOD BANK SPECIMEN 05/22/22 05/19/2022 [place] EXPIRATION 23:59 11:18 AM [facility] MEDICAL DATE/TIME CENTER LABORATORY BLOOD BANK Specimen Anatomical Collection Method Collection Time Receive d Time (Source) Location / / Volume Laterality Blood BLOOD SPECIMEN / [place] / 05/19/2022 10:39 022 Unknown Unknown AM CDT 10:44 AM CDT Marquez Riley MD BLOOD BANK Performing Organization Address City/State/ZIP Code Phon e Number [facility] [address] [place] [address] BLOOD BANK BASIC METABOLIC PANEL (05/19/2022 10:39 AM CDT) athologist Signature SODIUM 139 135 - 145 05/19/2022 [place] mmol/L 11:[address] [facility] POTASSIUM 4.6 3.5 - 5.0 05/19/2022 [place] mmol/L 11:[address] [facility] CHLORIDE 106 98 - 110 05/19/2022 [place] mmol/L 11:[address] [facility] CO2,TOTAL 26 21 - 31 05/19/2022 [place] mmol/L 11:[address] [facility] ANION GAP 7 5 - 18 05/19/2022 [place] 11:[address] [facility] GLUCOSE 94 65 - 100 05/19/2022 [place] mg/dL 11:[address] [facility] CALCIUM 9.1 8.5 - 10.5 05/19/2022 [place] mg/dL 11:[address] [facility] BUN 11 8 - 25 05/19/2022 [place] mg/dL 11:[address] [facility] CREATININE 0.68 0.57 - 05/19/2022 [place] 1.11 mg/dL 11:[address] [facility] BUN/CREAT RATIO 16 10 - 20 05/19/2022 [place] 11:[address] [facility] eGFR >90 >90 05/19/2022 [place] mL/min/1.7 11:05 AM CDT [facility]ICAL [facility] 3m2 LABORATORY Comment: As of 2021, eGFR is calcu lated by the CKD-EPI creatinine equation without race adjustment. eGFR can be inf luenced by muscle mass, exercise, and diet. The reported eGFR is an estimation only and is only applicable if the renal function is stable. Specimen Anatomical Collection Method Collection Time Receive d Time (Source) Location / / Volume Laterality Blood BLOOD SPECIMEN / [facility] / 05/19/2022 10:39 022 Unknown Unknown AM CDT 10:44 AM CDT Marquez Riley MD CHEMISTRY Performing Organization Address City/State/ZIP Code Phon e Number [facility] [address] [place] [address] from Last 3 Months Insurance Payer Benefit Plan / Subscriber ID Effective Dates Phone Addre ss Type Group WC WORK[employer] COMP [employer] TRAVELERS [id number] 2020-Presen [address] [place] [address] [facility] [id number] 2022-Present [address] [facility] [place] [facility] [address] (Home) [place] [id number] Yolanda Majano Workers Comp Self [id number] (Home) [place] [id number] [employer] Other 09/28/[address] [facility] [id number] Advance Directives Latest Code Status on File Code Status Date Activated Date Inactivated Comments Full Code 02/26/2018 9:21 AM 02/27/2018 2:35 AM Care Teams Banquet Director Relationship Specialty Start Date End Date Nancy Peacock PA PCP - General Physician Speech And Hearing Clinic Director 04/09/15 [address] [facility] [place] [address] Charissa Watkins PsyD, LP Psychology 11/02/17 100 [facility] [place] [id number]
--- OUTSIDE RECORDS SUMMARY | 2022-07-11 09:30 | XMS_ITS | Encounter Summary ---
:1990 Author Organization [facility] Address [address] [place] [address] Care Team Providers Name Role Phone Unavailable Primary Care Provider Unavailable Encounter Details Date Type Department Care Team Description 07/24/2003 Hospital Encounter HX [facility] [place] M.D. [address] [place] [phone] (Wo rk) Social History Tobacco Use Types Packs/Day Years Used Date Smoking Tobacco: Never Assessed Sex Assigned at Date Recorded Not on file documented as of this encounter Plan of Treatment Not on filedocumented as of this encounter Visit Diagnoses Not on filedocumented in this encounter
--- OUTSIDE RECORDS SUMMARY | 2022-07-11 09:30 | XMS_ITS | Encounter Summary ---
:1990 Author Organization [facility] Address [address] [place] [address] Care Team Providers Name Role Phone Unavailable Primary Care Provider Unavailable Encounter Details Date Type Department Care Team Description 10/03/2003 Hospital Encounter HX [facility] [place] M.D. [address] [place] [address] (Wo rk) Social History Tobacco Use Types Packs/Day Years Used Date Smoking Tobacco: Never Assessed Sex Assigned at Date Recorded Not on file documented as of this encounter Plan of Treatment Not on filedocumented as of this encounter Visit Diagnoses Not on filedocumented in this encounter
--- OUTSIDE RECORDS SUMMARY | 2022-07-11 09:30 | XMS_ITS | Encounter Summary ---
:1990 Author Organization [facility] Address [address] [place] [address] Care Team Providers Name Role Phone Unavailable Primary Care Provider Unavailable Encounter Details Date Type Department Care Team Description 06/28/2003 Hospital Encounter HX [facility] Adam Stroud Social History Tobacco Use Types Packs/Day Years Used Date Smoking Tobacco: Never Assessed Sex Assigned at Date Recorded Not on file documented as of this encounter Plan of Treatment Not on filedocumented as of this encounter Visit Diagnoses Not on filedocumented in this encounter
--- OUTSIDE RECORDS SUMMARY | 2022-07-11 09:30 | XMS_ITS | Encounter Summary ---
:1990 Author Organization [facility] Address [address] [place] [address] Care Team Providers Name Role Phone Unavailable Primary Care Provider Unavailable Encounter Details Date Type Department Care Team Description 06/22/2003 Hospital Encounter HX [facility] [place] M.D. [address] [place] [phone] (Wo rk) Social History Tobacco Use Types Packs/Day Years Used Date Smoking Tobacco: Never Assessed Sex Assigned at Date Recorded Not on file documented as of this encounter Plan of Treatment Not on filedocumented as of this encounter Visit Diagnoses Not on filedocumented in this encounter
--- OUTSIDE RECORDS SUMMARY | 2022-07-11 09:30 | XMS_ITS | Encounter Summary ---
:1990 Author Organization [facility] Address [address] [place] [address] Care Team Providers Name Role Phone Unavailable Primary Care Provider Unavailable Encounter Details Date Type Department Care Team Description 08/30/2003 Hospital Encounter HX [facility] Adam Stroud Social History Tobacco Use Types Packs/Day Years Used Date Smoking Tobacco: Never Assessed Sex Assigned at Date Recorded Not on file documented as of this encounter Plan of Treatment Not on filedocumented as of this encounter Visit Diagnoses Not on filedocumented in this encounter
--- OUTSIDE RECORDS SUMMARY | 2022-07-11 09:30 | XMS_ITS | Encounter Summary ---
:1990 Author Organization [facility] Address [address] [place] [address] Care Team Providers Name Role Phone Unavailable Primary Care Provider Unavailable Encounter Details Date Type Department Care Team Description 03/01/2003 Hospital Encounter HX [facility] Guy Valera, Ruslan [address] [place], [place] [address] (Wo rk) Social History Tobacco Use Types Packs/Day Years Used Date Smoking Tobacco: Never Assessed Sex Assigned at Date Recorded Not on file documented as of this encounter Plan of Treatment Not on filedocumented as of this encounter Visit Diagnoses Not on filedocumented in this encounter
--- OUTSIDE RECORDS SUMMARY | 2022-07-11 09:30 | XMS_ITS | Encounter Summary ---
:1990 Author Organization [facility] Address [address] [place] [address] Care Team Providers Name Role Phone Unavailable Primary Care Provider Unavailable Encounter Details Date Type Department Care Team Description 05/02/2003 Hospital Encounter HX [facility] Adam Stroud Social History Tobacco Use Types Packs/Day Years Used Date Smoking Tobacco: Never Assessed Sex Assigned at Date Recorded Not on file documented as of this encounter Plan of Treatment Not on filedocumented as of this encounter Visit Diagnoses Not on filedocumented in this encounter
== END 2022-07-11 09:16 | disposition home or self-care (01) ==
LOC: NFLDREF 09:18
PROVIDERS: PCP Physician Assistant; Visit Provider Registered Nurse
DX: N92.0 Excessive and frequent menstruation with regular cycle (principal)
CPT/HCPCS: 84443

== ENCOUNTER 2022-07-14 14:41 | Outpatient (CLI) | payer OTHER, SELFPAY ==
--- OUTSIDE RECORDS SUMMARY | 2022-07-14 15:00 | XMS_ITS | Encounter Summary ---
:1990 Author Organization [facility] Address [address] [place] [address] Care Team Providers Name Role Phone Elsewhere, Pcp Primary Care Provider Unavailable Reason for Visit Reason Comments Urinary Tract Infection Vaginosis, kidney pain left side. Appointment Request (Routine) - Closed Specialty Diagnoses / Procedures Referred By Contact Refer red To Contact Family Medicine Referral ID Status Reason Start Date Expiration Date Visits Requ ested Visits Authorized [id number] Closed 12/12/2021 12/12/2022 1 1 Encounter Details Date Type Department Care Team Description 12/12/2021 Office Visit Urgent Care in [place] Dys uria (Primary Dx); Marko Sue M.D. Vaginitis; [address] Frequency Urinary; DOR[place] HAND Urgency Urina ry; [id number] Pain Flank [phone] Social History Tobacco Use Types Packs/Day Years [...] Body Mass Index 48.49 11/25/2021 9:40 AM ENGINEER SYSTEMS documented in this encounter Progress Notes Terrell [...] panel swabs obtained. -female nurse present as head field hockey coach. ASSESSMENT / PLAN #1 Dysuria #2 Vaginitis [...] City/State/ZIP Code Phon e Number [facility] Bobby Sue, MD [phone] [facility] [place] [address] [facility] Bobby Sue Lab- [facility] [place] [address] Bobby Sue & [place] [address] Chlamydia / Gonorrhoeae Amplified RNA (12/12/2021 7:21 PM CDT) [facility] gist Method Time Signature Source Swab, [...] - GENERAL O RDERABLES Performing Organization Address City/[facility]/ZIP Code Phon e Number [facility] [place] [address] [facility] [place] [place] [address] [address] Vaginitis Panel (12/12/2021 7:21 PM CDT) [...] GENERAL O ANA LAURA Performing Organization Address [facility] Code Phon e Number [facility] [place], [place] [phone] [facility] [place] [address] [facility] Bobby Sue Lab- [facility] [place] [address] [place] & [place] [address] (ABNORMAL) Bacterial Culture, Aerobic + Susc, Urine (12/12/2021 6:52 PM CDT) Analysis Performed At Path logist Time Signature Urine Culture Mixed 12/14/2021 MKTO mary beth. (A) 8:46 AM CDT Specimen Anatomical Collection Method Collection Time Receive d Time (Source) Location / / Volume Laterality Urine (Urine, 12/12/2021 6:52 PM 12/13/19 22 Midstream) CDT 11:54 PM CDT Comment: Specimen Source Site: Urine [place] Carvajal M.D. LAB MICROBIOLOGY - GENERAL O RDERABLES Performing Organization Address City/[facility]/ZIP Code Phon e Number [facility] [place] [address] [place] [address] System [address] (ABNORMAL) Urinalysis with Microscopic: Urine, Midstream (12/12/2021 6:52 PM CDT) Analysis Performed At [facility] Time Signature Source Urine, Urine, 12/12/2021 [place] Midstream 8:03 PM CDT Clarity Clear Clear 12/12/2021 [place] 8:03 PM CDT Color Yellow 12/12/2021 [place] 8:03 PM CDT Comment: ----REFERENCE VALUE---- Colorless [...] 8.0 12/12/2021 8:03 PM CDT [place] Specific [place] 1.020 1.001 - 1.035 12/12/2021 8:03 PM [...] City/State/ZIP Code Phon e Number [facility] DORI Hand [phone] [facility] [place] [address] [place] Sue Lab- [facility] DORI Hand [phone] [place] & [place] [address] documented in this encounter Visit Diagnoses Diagnosis Dysuria - Primary Vaginitis Frequency Urinary Urgency Urinary Pain Flank documented in this encounter Additional Health Concerns Assessment Noted Time PHQ-9 Depression Total Score: 7 11/29/2015 11:32 AM CS T documented as of this encounter Care Teams Head Banquet Waitress Relationship Specialty Start Date End Date Elsewhere, Pcp PCP - General 05/29/19 documented as of this encounter
--- OUTSIDE RECORDS SUMMARY | 2022-07-14 15:00 | XMS_ITS | Encounter Summary ---
:1990 Author Organization [facility] Address [address] [place] [address] Care Team Providers Name Role Phone Elsewhere, [...] Expiration Date Visits Requ ested Visits Authorized [id number] Closed 02/03/2022 02/03/2023 1 1 Encounter Details Date Type Department Care Team Description 02/03/2022 Office Visit Urgent Care in [place] Sarah C, F olliculitis (Primary Dx); [place] Ryan OVALLESNMayurPMayur, Dermatitis Atopic [address] [place] [address] [place] [phone] [place] [address] Social History Tobacco Use Types Packs/Day [...] Body Mass Index 48.35 11/25/2021 9:40 AM POLICE 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 - 02/03/2022 6:30 PM CDT [...] with HOLLIS Jeffries in the room to exhibit technician. Area is shaved. External exam reveals follicular [...] documented as of this encounter Care Teams Content Production Specialist Relationship Specialty Start Date End Date Elsewhere, Pcp PCP - General 05/29/19 documented as of this encounter
--- OUTSIDE RECORDS SUMMARY | 2022-07-14 15:00 | XMS_ITS | Encounter Summary ---
:1990 Author Organization [facility] Address [address] [place] [address] Care Team Providers Name Role Phone Elsewhere, Pcp Primary Care Provider Unavailable Reason for Visit Reason Comments Urinary Tract Infection Vaginitis/Bacterial Vaginosis COVID Nurse Line Encounter Details Date Type Department Care Team Description 12/12/2021 Nurse Triage Department of Family Soniya Cervantes, Ur inary T[facility]; Clinic, in [place] [address] [facility] Vaginitis/Bacterial [place], [place] Vaginosis; COVID Nurse [address] [place] [address] [place] [address] [phone] Social History Tobacco Use Types Packs/Day Years Used Date Smoking Tobacco: Every Day Cigarettes 0.8 Smokeless Tobacco: Never Alcohol Use Standard Drinks/Week Comments Yes 12 (1 standard drink = 0.6 oz pure alcoh ol) Sex Assigned at Date Recorded Not on file documented as of this encounter Miscellaneous Notes Telephone Encounter - Soniya Cervantes, R.N. - 12/12/2021 4:39 PM CDT Chief Complaint [...] 24 hours. Patient was warm transferred to Molly at the clinic for further assistance. Reason for Disposition ??? Side (flank) or lower back pain present Protocols used: URINARY [id number] Care Advice Patient/Caregiver understands and will follow care advice?: Yes, able to teach back CARE ADVICE given per Urinary Symptoms (Adult) guideline. SEE PCP WITHIN 24 HOURS: PAIN MEDICINES: * For pain relief, you can take either acetaminophen, ibuprofen, or naproxen. * They are sajh-tvz-zuunwov (OTC) pain drugs. You can buy them [...] acetaminophen overdose can hurt the liver. * [employer], the company that makes Tylenol, has different dosage instructions for Tylenol in [place] and the [place]. In [place], the maximum recommended dose per day is 4,000 mg or twelve Regular-Strength (325 mg) pills. In the [place], the maximum dose per day is ten Regular-Strength (325 mg) pills. * [employer], the company that makes Aleve, has different dosage instructions for Aleve in [place] and [place]. In [place], the maximum recommended dose per day is 440 mg (2 pills or caplets). In the [place], the maximum dose per day is [...] frequently with soap and water, use hand class c truck driver if soap and water aren't available. -Wear [...] care: Yes The following references were used: [facility] novel coronavirus (COVID- 19) resources Nursing judgement documented in this encounter Plan of Treatment Not on filedocumented as of this encounter Visit Diagnoses Not on filedocumented in this encounter Additional Health Concerns Assessment Noted Time PHQ-9 Depression Total Score: 7 11/29/2015 11:32 AM CS T documented as of this encounter Care Teams [employer] Practitioner Relationship Specialty Start Date End Date Elsewhere, Pcp PCP - General 05/29/19 documented as of this encounter
--- OUTSIDE RECORDS SUMMARY | 2022-07-14 15:00 | XMS_ITS | Encounter Summary ---
:1990 Author Organization [facility] Address [address] [place] [address] Care Team Providers Name Role Phone Elsewhere, Pcp Primary Care Provider Unavailable Reason for Visit Reason Comments Abdominal Pain Constipation Encounter Details Date Type Department Care Team Description 11/28/2021 Nurse Triage NURSE TRIAGE Eva Banegas, Abdomin al Pain; R.N. Constipation [address] [place] [address] (Wo rk) Social History Tobacco Use Types [...] due for an ultra sound tomorrow in [place]. Also a colonoscopy ordered for [place] or [...] 4 hours. Patient was warm transferred to Cecil at the clinic for further assistance. Reason for Disposition ??? [1] Vomiting AND [2] abdomen looks much more swollen than usual Protocols used: ABDOMINAL PAIN - [id number] Care Advice Patient/Caregiver understands and will follow care advice?: Yes, able to teach back NOTHING BY MOUTH: * Do not eat or drink anything for now. REST: * Lie down and rest. * Do this until seen. CALL BACK IF: * You become worse. 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
--- OUTSIDE RECORDS SUMMARY | 2022-07-14 15:00 | XMS_ITS | Encounter Summary ---
:1990 Author Organization [facility] Address [address] [place] [address] Care Team Providers Name Role Phone Elsewhere, Pcp Primary Care Provider Unavailable Encounter Details Date Type Department Care Team Description 11/26/2021 Clinical Communication Division of Trauma Preschedulin g, Critical Care and Provider General Surgery in [place], [place] [address] [place] [id number] Social History Tobacco Use Types Packs/Day Years [...] for inflammatory bowel disease. This was ordered [facility] so couldn't be used for scheduling in [place]. Also this should be directed to Gas troenterology rather than General Surgery. Can you please reissue an order and send to GI? Thank youvery much! STRIAL HEALTH AND SAFETY PROFESSOR documented in this encounter Plan of Treatment Not on filedocumented as of this encounter Visit Diagnoses Not on filedocumented in this encounter Additional Health Concerns Assessment Noted Time PHQ-9 Depression Total Score: 7 11/29/2015 11:32 AM CS T documented as of this encounter Care Teams Lap Machine Tender Relationship Specialty Start Date End Date Elsewhere, Pcp PCP - General 05/29/19 documented as of this encounter
--- OUTSIDE RECORDS SUMMARY | 2022-07-14 15:00 | XMS_ITS | Encounter Summary ---
:1990 Author Organization [facility] Address [address] [place] [address] Care Team Providers Name Role Phone Elsewhere, Pcp Primary Care Provider Unavailable Encounter Details Date Type Department Care Team Description 05/30/2022 Clinical Communication Department of Family [facility] [place], Pcp Medicine, [facility], in [place], [place] [address] [place] [address] Social History Tobacco Use Types Packs/Day Years Used Date Smoking Tobacco: Every Day Cigarettes 0.8 Smokeless Tobacco: Never Alcohol Use Standard Drinks/Week Comments Yes 12 (1 standard drink = 0.6 oz pure alcoh ol) Sex Assigned at Date Recorded Not on file documented as of this encounter Miscellaneous Notes Telephone Encounter - Trinity Caba L.PMayurNMayur - 06/09/2022 8:36 AM CDT Letter with results mailed to patient Telephone Encounter - Trinity Caba L.P.N. - 06/06/2022 11:58 AM CDT Results: Vagnitis panel reveals you have bacterial vaginosis. Laboratory results indicate you are positive for Bacterial vaginosis (BV). BV is the most common cause of abnormal vaginal discharge in reproductive-age women. Treatment is aimed at relieving symptoms of abnormal vaginal discharge which is often malodorous. Treatment will entail Metronidazole 500 mg orally twice daily for 7 days. If recurrent symptoms, please follow up. Telephone Encounter - Aura Roberts C.M.A. - 06/06/2022 11:36 AM CDT Unable to reach patient. Contacted pharmacy. Patient has not picked up this prescription yet. Telephone Encounter - Lexie Arevalo - 05/30/2022 8:50 AM CDT TEST RESULT QUESTION: Type of test: labs/ua Date of test: 05/29 Which provider/department ordered the test? Primary care today Comments: Patient was seen on 05/29 in Primary Care Today and is not able to access her patient portal. She would like a call back with her lab results. She states she will be at work today and would like a message left on her voicemail. Sending message to [place] team due to no pcp and Dr. Guadarrama being pharmacy operations coordinator. Route to [facility] pool of ordering provider. documented in this encounter Plan of Treatment Not on filedocumented as of this encounter Visit Diagnoses Not on filedocumented in this encounter Additional Health Concerns Assessment Noted Time PHQ-9 Depression Total Score: 7 11/29/2015 11:32 AM CS T documented as of this encounter Care Teams Buckram Sewer Relationship Specialty Start Date End Date Elsewhere, Pcp PCP - General 05/29/19 documented as of this encounter
--- OUTSIDE RECORDS SUMMARY | 2022-07-14 15:00 | XMS_ITS | Encounter Summary ---
:1990 Author Organization [facility] Address [address] [place] [address] Care Team Providers Name Role Phone Elsewhere, Pcp Primary Care Provider Unavailable Reason for Visit Reason Comments Follow-up Encounter Details Date Type Department Care Team Description 11/28/[address] [facility] Susan, Follow-up Emergency Department Eduarda Rea R.N. [address] [place] [address] Social History Tobacco Use Types Packs/Day Years Used Date Smoking Tobacco: Every Day Cigarettes 0.8 Smokeless Tobacco: Never Alcohol Use Standard Drinks/Week Comments Yes 12 (1 standard drink = 0.6 oz pure alcoh ol) Sex Assigned at Date Recorded Not on file documented as of this encounter Miscellaneous Notes Telephone Encounter - Eduarda Davis R.N. - 11/28/2021 8:47 AM PAINTER AND PAPERHANGER APPRENTICE Pt presented to the ED on 11/25 for abdominal pain. The patient was discharged home after a reassuring workup. ED follow-up nurse received a call from the patient requesting her abdominal ultrasound that is scheduled for tomorrow be scheduled for today. Discussed PCP follow-up care, when to return to the ED, encouraged hydration, bland diet, and informed I was not able to move her ultrasound appointment. Verbalized understanding and denies questions/concerns at this time. Eduarda Davis R.N. 11/28/21 [address] AND PAPERHANGER APPRENTICE documented in this encounter Plan of Treatment Not on filedocumented as of this encounter Visit Diagnoses Not on filedocumented in this encounter Additional Health Concerns Assessment Noted Time PHQ-9 Depression Total Score: 7 11/29/2015 11:32 AM CS T documented as of this encounter Care Teams Claim Processor Relationship Specialty Start Date End Date Elsewhere, Pcp PCP - General 05/29/19 documented as of this encounter
--- OUTSIDE RECORDS SUMMARY | 2022-07-14 15:00 | XMS_ITS | Encounter Summary ---
:1990 Author Organization [facility] Address [address] [place] [address] Care Team Providers Name Role Phone Elsewhere, Pcp Primary Care Provider Unavailable Reason for Visit Reason Comments Medical Information Encounter Details Date Type Department Care Team Description 05/30/2022 Nurse Triage Department of [facility] Marylou Kim, [facility] Information MedicineMoustapha, R.N. [facility], in [place], [place] (Work) [address] [place] [address] Social History Tobacco Use Types Packs/Day Years [...] be helpful. Patient was warm transferred to [facility] at the clinic for further assistance. The [...] documented as of this encounter Care Teams Press Secretary Relationship Specialty Start Date End Date Elsewhere, Pcp PCP - General 05/29/19 documented as of this encounter
--- OUTSIDE RECORDS SUMMARY | 2022-07-14 15:00 | XMS_ITS | Clinical Summary ---
:1990 Author Organization [facility] Address [address] [place] [address] Care Team Providers Name Role Phone Elsewhere, Pcp Primary Care Provider Unavailable Source Comments Patient records contain information from all sites at [facility]. For routine questions regarding patient records, call [phone] during business hours, M-F 8:00 AM - 5:00 PM Central Time. Record requests for emergency care only can be directed to [phone] at any time.[facility] Allergies Active Allergy Reactions Severity Noted Date [...] Family Medicine Stacy Pearl, Communicat ion; Communication CHARLETTE C.N.P., Results R.N. 05/30/2022 Orders Only Family Medicine Rosemary White, CHARLETTE, C.N.P., M.S.N. 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- [address] [place] [address] [facility] [place] [address] [facility] [address] (ABNORMAL) Bacterial Culture, Aerobic + Susc, Urine (05/29/2022 8:14 PM CDT) [facility] gist Method Time Signature Urine Culture Mixed 05/31/2022 [facility] microbiota (A) 8:30 AM CDT Specimen Anatomical Collection Method Collection Time Receive d Time (Source) Location / / Volume Laterality Urine (Urine, 05/29/2022 8:14 PM 05/30/20 22 Midstream) CDT 12:06 AM CDT Comment: Specimen Source Site: Urine Stacy Pearl APRN C.N.P., R.N. LAB MICROBIOLOGY - GEN ERAL ORDERABLES Performing Organization Address City/State/ZIP Code Phon e Number [facility]- [address] [place] [address] [place] [address] (ABNORMAL) Urinalysis with Microscopic: Urine, Midstream (05/29/2022 8:14 PM CDT) Analysis Performed At Path logist Time Signature Source Urine, Urine, 05/29/2022 [...] 8.0 05/29/2022 8:23 PM CDT AUST Specific [place] 1.021 1.001 - 1.035 05/29/2022 8:23 PM [...] R.N. LAB URINE ORDERABLES Performing Organization Address City/[facility] Phon e Number [facility]- [address] [place] [address] [place] [facility] [place], [place] [id number] [place] [address] Chlamydia / Gonorrhoeae Amplified RNA (05/29/2022 7:59 PM CDT) [facility] gist Method Time Signature Source Swab, [...] - GEN ERAL ORDERABLES Performing Organization Address City/[facility]/ZIP [facility] Phon e Number [facility]- [address] [place] [address] [place] [address] [address] from Last 3 Months Insurance Payer Benefit Plan / Subscriber ID Effective Phone Address T ype Group Dates TRAVELERS TRAVELERS [id number] 2017-Pre [address] Indemn ity INSURANCE INSURANCE sent [id number] [place] [address] [facility] [id number] 2022-Pres [address] Medicaid HMO [facility] [place] CARE ent DR [place] [address] [place] [address] Care Teams Tie Hacker Relationship Specialty Start Date End Date Elsewhere, Pcp PCP - General 05/29/19
--- OUTSIDE RECORDS SUMMARY | 2022-07-14 15:00 | XMS_ITS | Encounter Summary ---
:1990 Author Organization [facility] Address [address] [place] [address] Care Team Providers Name Role Phone Elsewhere, Pcp Primary Care Provider Unavailable Reason for Visit Reason Comments ER Referral Colonoscopy Encounter Details Date Type Department Care Team Description 11/28/2021 Clinical Department of Viviana Nieto ER Referral; Communication Gastroenterology in [place] R.N. [place], [place] [address] [place] [address] [place], [place] [phone] Social History Tobacco Use Types Packs/Day Years Used Date Smoking Tobacco: Every Day Cigarettes 0.8 Smokeless Tobacco: Never Alcohol Use Standard Drinks/Week Comments Yes 12 (1 standard drink = 0.6 oz pure alcoh ol) Sex Assigned at Date Recorded Not on file documented as of this encounter Miscellaneous Notes Telephone Encounter - Iram Lind R.N. - 11/28/2021 9:49 AM MANAGING ATTORNEY Please see communication from 11/26/2021. General Surgery ED f/u was cancelled d/t this should be directed to the gastroenterology team rather than general surgery. GING ATTORNEY Telephone Encounter - Viviana Nieto R.N. - 11/28/2021 9:34 AM CST Message was left to schedule colonoscopy & GI follow up for Yolanda Majano. Routing to General Surgery team, I see that there was an ER follow up placed from [facility] location. If appropriate to proceed with colonoscopy. Please order. GING ATTORNEY documented in this encounter Plan of Treatment Not on filedocumented as of this encounter Visit Diagnoses Not on filedocumented in this encounter Additional Health Concerns Assessment Noted Time PHQ-9 Depression Total Score: 7 11/29/2015 11:32 AM CS T documented as of this encounter Care Teams Forestry Contractor Relationship Specialty Start Date End Date Elsewhere, Pcp PCP - General 05/29/19 documented as of this encounter
--- OUTSIDE RECORDS SUMMARY | 2022-07-14 15:00 | XMS_ITS | Encounter Summary ---
:1990 Author Organization [facility] Address [address] [place] [address] Care Team Providers Name Role Phone Elsewhere, Pcp Primary Care Provider Unavailable Encounter Details Date Type Department Care Team Description 05/29/2022 Hospital Encounter Department of Laboratory Puneet Pearl, Dysuria Medicine in [facility], C.N.P. , R.N. [place] [address] [place] [address] [place], [place] [phone] Social History Tobacco Use Types Packs/Day Years [...] + Susc, Urine (05/29/2022 8:14 PM CDT) [facility] Method Time Signature Urine Culture Mixed 05/31/2022 [facility] microbiota (A) 8:30 AM CDT Specimen Anatomical Collection Method Collection Time Receive d Time (Source) Location / / Volume Laterality Urine (Urine, 05/29/2022 8:14 PM 05/30/20 22 Midstream) CDT 12:06 AM CDT Comment: Specimen Source Site: Urine Stacy Pearl APRN C.N.P., R.N. LAB MICROBIOLOGY - GEN ERAL ORDERABLES Performing Organization Address City/State/ZIP Code Phon e Number [facility]- [address] [place] [phone] [place] [address] [place] [address] System [address] (ABNORMAL) Urinalysis with Microscopic: Urine, Midstream (05/29/2022 8:14 PM CDT) Analysis Performed At [facility] Time Signature Source Urine, Urine, 05/29/2022 AUST [...] 8.0 05/29/2022 8:23 PM CDT AUST Specific [place] 1.021 1.001 - 1.035 05/29/2022 8:23 PM [...] Organization Address City/State/ZIP Code Phon e Number [facility]- [address] [place], [place] [phone] [place] [address] LAB AUST [place] [facility] - [address] documented in this encounter Visit Diagnoses Diagnosis Dysuria documented in this encounter Additional Health Concerns Assessment Noted Time PHQ-9 Depression Total Score: 7 11/29/2015 11:32 AM CS T documented as of this encounter Care Teams Electronic Video Games Servicer Relationship Specialty Start Date End Date Elsewhere, Pcp PCP - General 05/29/19 documented as of this encounter
--- OUTSIDE RECORDS SUMMARY | 2022-07-14 15:00 | XMS_ITS | Encounter Summary ---
:1990 Author Organization [facility] Address [address] [place] [address] Care Team Providers Name Role Phone Elsewhere, Pcp Primary Care Provider Unavailable Encounter Details Date Type Department Care Team Description 02/04/2022 Admin Visit Urgent Care in [place], [place] [address] [place] [address] Social History Tobacco Use Types Packs/Day Years [...] documented as of this encounter Care Teams Senior Net Software Developer Relationship Specialty Start Date End Date Elsewhere, Pcp PCP - General 05/29/19 documented as of this encounter
--- OUTSIDE RECORDS SUMMARY | 2022-07-14 15:00 | XMS_ITS | Encounter Summary ---
:1990 Author Organization [facility] Address [address] [place] [address] Care Team Providers Name Role Phone Elsewhere, Pcp Primary Care Provider Unavailable Reason for Visit Reason Comments uti symptoms Appointment Request (Routine) - Closed Specialty Diagnoses / Procedures Referred By Contact Refer red To Contact Family Medicine Referral ID Status Reason Start Date Expiration Date Visits Requ ested Visits Authorized [id number] Closed 05/29/2022 05/29/2023 1 1 Encounter Details Date Type Department Care Team Description 05/29/2022 Office Visit Department of Family Stacy Pearl, CHARLETTE, C.N.P., R.N. [address] [place] [phone] Dysuria (Primary Dx); Medicine, [place] Blanca Malin, P.A.-C. 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 - 05/29/2022 7:30 PM CDT [...] systems reviewed and are negative. OBJECTIVE Vitals: 05/29/221930 BP: 127/84 Patient Position: Sitting Pulse: 94 Temp: 36.2 ??C Weight: 129 kg TempSrc: Temporal Body mass index is 46.06 kg/m??. Vitals reviewed. Exam conducted with a in home sales representative present. Constitutional General: She is not in [...] include listening. Explained diagnosis and treatment plan; patient/child/middle card tender expressed understanding of the content. documented in [...] (ABNORMAL) Vaginitis Panel (05/29/2022 9:09 PM CDT) [facility] Method Time Signature Katie Negative Negative 05/29/2022 [...] Organization Address City/State/ZIP Code Phon e Number [facility]- [address] [place] [address] [facility] [place] [address] [facility] [address] (ABNORMAL) Bacterial Culture, Aerobic + Susc, Urine (05/29/2022 8:14 PM CDT) [facility] Method Time Signature Urine Culture Mixed 05/31/2022 [facility] microbiota (A) 8:30 AM CDT Specimen Anatomical Collection Method Collection Time Receive d Time (Source) Location / / Volume Laterality Urine (Urine, 05/29/2022 8:14 PM 05/30/20 22 Midstream) CDT 12:06 AM CDT Comment: Specimen Source Site: Urine Brenden Seo APRN.N.P., R.N. LAB MICROBIOLOGY - GEN ERAL ORDERABLES Performing Organization Address City/[facility]/ZIP Code Phon e Number [facility]- [address] [place] [phone] [place] [address] System in [place] [address] [place] [address] (ABNORMAL) Urinalysis with Microscopic: Urine, Midstream (05/29/2022 8:14 PM CDT) Analysis Performed At [facility] logist Time Signature Source Urine, Urine, 05/29/2022 [...] 8.0 05/29/2022 8:23 PM CDT AUST Specific [place] 1.021 1.001 - 1.035 05/29/2022 8:23 PM [...] Organization Address City/State/ZIP Code Phon e Number [facility]- [address] [place], [place] [phone] [place] [address] LAB AUST [place] [facility] [place], [place] [phone] [place] [address] Chlamydia / Gonorrhoeae Amplified RNA (05/29/2022 7:59 PM CDT) [facility] gist Method Time Signature Source Swab, [...] PM 2021 CDT 12:06 AM CDT Stacy L Dae OVALLES C.N.P., R.N. LAB MICROBIOLOGY - GEN ERAL ORDERABLES Performing Organization Address City/State/ZIP Code Phon e Number [facility]- [address] [place] [phone] [place] [address] [place] [address] System in [place] [address] [place] [address] documented in this encounter Visit Diagnoses Diagnosis Dysuria - Primary Bleeding Vaginal documented in this encounter Additional Health Concerns Assessment Noted Time PHQ-9 Depression Total Score: 7 11/29/2015 11:32 AM CS T documented as of this encounter Care Teams Tool Crib Supervisor Relationship Specialty Start Date End Date Elsewhere, Pcp PCP - General 05/29/19 documented as of this encounter
--- OUTSIDE RECORDS SUMMARY | 2022-07-14 15:00 | XMS_ITS | Encounter Summary ---
:1990 Author Organization [facility] Address [address] [place] [address] Care Team Providers Name Role Phone Elsewhere, Pcp Primary Care Provider Unavailable Reason for Visit Reason Comments Urinary Problem Vaginal Discharge Encounter Details Date Type Department Care Team Description 05/29/2022 Nurse Triage Department of Family Juanita Vance U rinary Problem; Medicine, [facility], in [place], [place] [address] [place] [address] Social History Tobacco Use Types Packs/Day Years [...] 24 hours. Patient was warm transferred to [place] at the clinic for further assistance. Reason for Disposition Unusual vaginal discharge (e.g., bad smelling, yellow, green, or foamy-white) Protocols used: Urination Pain - [id number] Care Advice Patient/Caregiver understands and will follow care advice?: Yes, able to teach back SEE PCP WITHIN 24 HOURS: * IF OFFICE WILL BE OPEN: You need to be examined within the next 24 hours. Call your doctor (or EPIC KALEIDOSCOPE ANALYST/PA) when the office opens and make an [...] failure. * Discuss with your doctor (or EPIC KALEIDOSCOPE ANALYST/PA). WARM SALINE SITZ BATHS - TWICE DAILY [...] You can buy a test at the [facility]. * It works best if you test [...] documented as of this encounter Care Teams Staff Weapons Officer Relationship Specialty Start Date End Date Elsewhere, Pcp PCP - General 05/29/19 documented as of this encounter
--- OUTSIDE RECORDS SUMMARY | 2022-07-14 15:00 | XMS_ITS | Encounter Summary ---
:1990 Author Organization [facility] Address [address] [place] [address] Care Team Providers Name Role Phone Elsewhere, Pcp Primary Care Provider Unavailable Reason for Visit Reason Comments Abdominal Pain Encounter Details Date Type Department Care Team Description 11/25/2021 Emergency [facility] Bandar Paul Lowe r Abdominal Pain Unspecified (Primary Dx); Emergency Department M.D. Diarrhea [address] [facility] [address] [place] [id number] [phone] Social History Tobacco Use Types Packs/Day Years Used Date Smoking Tobacco: Every Day Cigarettes 0.8 Smokeless Tobacco: Never Alcohol Use Standard Drinks/Week Comments Yes 12 (1 standard drink = 0.6 oz pure alcoh ol) Sex Assigned at Date Recorded Not on file documented as of this encounter Last Filed Vital Signs Vital Sign Reading Time Taken Comments Blood Pressure 130/81 11/25/2021 1:00 PM MOTION STUDY TECHNICIAN Pulse 82 11/25/2021 1:00 PM MOTION STUDY TECHNICIAN Temperature - - Respiratory Rate 18 11/25/2021 1:00 PM MOTION STUDY TECHNICIAN Oxygen Saturation 95% 11/25/2021 1:00 PM MOTION STUDY TECHNICIAN Inhaled Oxygen Concentration - - Weight 136 kg (300 lb 4.3 oz) 11/25/2021 9:40 AM MOTION STUDY TECHNICIAN Height 167.1 cm (5' 5.79) 11/25/2021 9:40 AM MOTION STUDY TECHNICIAN Body Mass Index 48.78 11/25/2021 9:40 AM MOTION STUDY TECHNICIAN documented in this encounter Discharge Instructions AttachmentsThe following attachments cannot be sent through Care Everywhere. Diarrhea Adult ([place])Abdominal Pain Adult ([place])documented in this encounter Medications at Time of [...] administration. Nasuea resolved within a couple minutes. ON STUDY TECHNICIAN documented in this encounter ED Notes Bandar Paul M.D. 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 Bandar Paul M.D. 11/26/21 1232 ON STUDY TECHNICIAN documented in this encounter Plan of Treatment Not on filedocumented as of this encounter Procedures Procedure Name Priority Date/Time Associated Comments Diagnosis CT ABDOMEN PELVIS RAD - Semiurgent 11/25/2021 12:49 Re sults for this WITH IV CONTRAST (Fast; most ED PM MOTION STUDY TECHNICIAN procedure are in patients; some the results inpatients) section. HC URINALYSIS AUTO Routine 11/25/2021 11:44 Resul ts for this WO MICRO AM MOTION STUDY TECHNICIAN procedure are i n the results section. DIPSTICK, U STAT 11/25/2021 11:40 Results for this AM MOTION STUDY TECHNICIAN procedure are i n the results section. MICROSCOPIC STAT 11/25/2021 11:40 Results for this AUTOMATED AM MOTION STUDY TECHNICIAN procedure are i n the results section. BACTERIAL CULTURE, STAT 11/25/2021 11:40 Resul ts for this AEROBIC + SUSC, AM MOTION STUDY TECHNICIAN procedure ar e in URINE the results section. PH, U STAT 11/25/2021 11:40 Results for this AM MOTION STUDY TECHNICIAN procedure are i n the results section. OSMOLALITY, U STAT 11/25/2021 11:40 Results fo r this AM MOTION STUDY TECHNICIAN procedure are i n the results section. URINALYSIS WITH STAT 11/25/2021 11:40 Results for this MICROSCOPIC AM MOTION STUDY TECHNICIAN procedure are i n the results section. HEPATIC FUNCTION STAT 11/25/2021 10:17 Results for this PANEL, S AM MOTION STUDY TECHNICIAN procedure are i n the results section. CBC WITH STAT 11/25/2021 10:17 Results for this DIFFERENTIAL, B AM MOTION STUDY TECHNICIAN procedure ar e in the results section. HUMAN CHORIONIC STAT 11/25/2021 10:17 Results for this GONADOTROPIN (HCG), AM MOTION STUDY TECHNICIAN procedur e are in ERVIN, the results section. LIPASE, S/P STAT 11/25/2021 10:17 Results for this AM MOTION STUDY TECHNICIAN procedure are i n the results section. BASIC METABOLIC STAT 11/25/2021 10:17 Results for this PANEL, S/P AM MOTION STUDY TECHNICIAN procedure are i n the results section. SARS CORONAVIRUS 2, STAT 11/25/2021 10:03 Resu lts for this PCR RAPID, V AM MOTION STUDY TECHNICIAN procedure are i n the results section. documented in this encounter Results CT Abdomen Pelvis with IV Contrast (11/25/2021 12:49 PM MOTION STUDY TECHNICIAN) Anatomical Region Laterality Modality Abdomen, Pelvis, Abdominal RST LOS, N/A Comp uted Tomography, Computed Abdominal ARZ LOS, Abdominal FLA LOS John ography Specimen (Source) Anatomical Collection Method Collection Time Re ceived Time Location / / Volume Laterality 11/25/2021 12:24 PM MOTION STUDY TECHNICIAN Impressions 11/25/2021 1:12 PM MOTION STUDY TECHNICIAN No acute finding or cause for abdominal pain identified. Narrative 11/25/2021 1:12 PM MOTION STUDY TECHNICIAN EXAM: ??CT ABDOMEN PELVIS WITH IV CONTRAST [...] (ABNORMAL) Dipstick, POCT, Urine (11/25/2021 11:44 AM MOTION STUDY TECHNICIAN) [facility] Method Time Signature Glucose, Negative Negative 11/25/2021 PCED POCT, U mg/dL 11:46 AM MOTION STUDY TECHNICIAN Ketone, POCT, Negative Negative 11/25/2021 PCED U mg/dL 11:46 AM MOTION STUDY TECHNICIAN Specific 1.025 1.005 - 11/25/2021 PCED [place], 1.030 11:46 AM MOTION STUDY TECHNICIAN POCT, U Blood, POCT, Negative Negative 11/25/2021 PCED U 11:46 AM MOTION STUDY TECHNICIAN pH, POCT, 6.0 5.0 - 8.0 11/25/2021 PCED Urine 11:46 AM MOTION STUDY TECHNICIAN Protein, Negative Negative 11/25/2021 PCED POCT, U mg/dL 11:46 AM MOTION STUDY TECHNICIAN Nitrites, Negative Negative 11/25/2021 PCED POCT, U 11:46 AM MOTION STUDY TECHNICIAN Leukocytes, Trace (A) Negative 11/25/2021 PCED POCT, U 11:46 AM MOTION STUDY TECHNICIAN Specimen Anatomical Collection Method Collection Time Receive d Time (Source) Location / / Volume Laterality Urine 11/25/2021 11:44 11/25/2021 AM MOTION STUDY TECHNICIAN 11:46 AM MOTION STUDY TECHNICIAN Unknown Provider LAB POCT ORDERABLES - DEVICE Performing Organization Address City/[facility]/ZIP Code Phon e Number POC [facility]ST [facility] [address] [place] [address] [place] [address] [facility] [address] Osmolality, Urine (11/25/2021 11:40 AM MOTION STUDY TECHNICIAN) athologist Signature Osmolality, U 654 150 - 1150 11/25/2021 DTL mOsm/kg 12:31 PM MOTION STUDY TECHNICIAN Specimen Anatomical Collection Method Collection Time Receive d Time (Source) Location / / Volume Laterality Urine 11/25/2021 11:40 11/25/2021 AM MOTION STUDY TECHNICIAN 12:05 PM MOTION STUDY TECHNICIAN Bandar Paul M.D. LAB URINE ORDERABLES Performing Organization Address City/[facility]/ZIP [facility] Phon e Number [facility] - [address] [place], [place] [address] [place] [address] [facility] [address] [facility] pH, Urine (11/25/2021 11:40 AM MOTION STUDY TECHNICIAN) athologist Signature pH, U 5.3 4.5 - 8.0 11/25/2021 12:31 DTL PM MOTION STUDY TECHNICIAN Specimen Anatomical Collection Method Collection Time Receive d Time (Source) Location / / Volume Laterality Urine 11/25/2021 11:40 11/25/2021 AM MOTION STUDY TECHNICIAN 12:05 PM MOTION STUDY TECHNICIAN Bandar Paul M.D. LAB URINE ORDERABLES Performing Organization Address City/[facility]/ZIP Code Phon e Number [facility] - [address] [place], [place] [address] [place] [address] [facility] [address] [facility] Microscopic Automated (11/25/2021 11:40 AM MOTION STUDY TECHNICIAN) athologist Signature Microscopy Normal 11/25/2021 DTL 12:45 PM MOTION STUDY TECHNICIAN WBC 1-3 /hpf 11/25/2021 DTL 12:45 PM MOTION STUDY TECHNICIAN Comment: ----REFERENCE VALUE---- 1-3 ??(Males) 1-10 (Females) Squamous Epithelial Cells, U 4-10 /hpf 11/25/2021 12:45 PM MOTION STUDY TECHNICIAN DTL Specimen Anatomical Collection Method Collection Time Receive d Time (Source) Location / / Volume Laterality Urine 11/25/2021 11:40 11/25/2021 AM MOTION STUDY TECHNICIAN 12:05 PM MOTION STUDY TECHNICIAN Bandar Paul M.D. LAB URINE ORDERABLES Performing Organization Address [facility] Phon e Number [facility] - [address] [place] [address] [address] [place] [address] [facility] 200 [facility] (ABNORMAL) Dipstick, Urine (11/25/2021 11:40 AM MOTION STUDY TECHNICIAN) [facility] Method Time Signature Hemoglobin, Negative Negative 11/25/2021 DTL QL 12:45 PM MOTION STUDY TECHNICIAN Leukocyte Small (A) Negative 11/25/2021 DTL Esterase, U 12:45 PM MOTION STUDY TECHNICIAN Nitrite, U Negative Negative 11/25/2021 DTL 12:45 PM MOTION STUDY TECHNICIAN Ketones, U Negative Negative 11/25/2021 DTL mg/dL 12:45 PM MOTION STUDY TECHNICIAN Glucose, U Negative Negative 11/25/2021 DTL mg/dL 12:45 PM MOTION STUDY TECHNICIAN Specimen Anatomical Collection Method Collection Time Receive d Time (Source) Location / / Volume Laterality Urine 11/25/2021 11:40 11/25/2021 AM MOTION STUDY TECHNICIAN 12:05 PM MOTION STUDY TECHNICIAN Bandar Paul M.D. LAB URINE ORDERABLES Performing Organization Address City/[facility] Phon e Number [facility] - [address] [place] [address] [address] [place] [address] [address] Bacterial Culture, Aerobic + Susc, Urine (11/25/2021 11:40 AM MOTION STUDY TECHNICIAN) Component Value Ref Test Analysis Performed At [facility] Range Method Time Signature Urine Organism present <10,000 cfu/mL, susceptibilities not 11/26/2021 DTL Culture performed per laboratory criteria. 8:12 AM MOTION STUDY TECHNICIAN Specimen Anatomical Collection Method Collection Time Receive d Time (Source) Location / / Volume Laterality Urine (Urine, 11/25/2021 11:40 11/25/2021 Midstream) AM MOTION STUDY TECHNICIAN 12:40 PM MOTION STUDY TECHNICIAN Comment: Specimen Source Site: Urine Bandar Paul M.D. LAB MICROBIOLOGY - GENERAL O RDERABLES Performing Organization Address City/[facility] Phon e Number [facility] - [address] [place], [place] [address] [place] [address] [place], [place] [address] [place] [address] Urinalysis with Microscopic: Urine, Midstream (11/25/2021 11:40 AM MOTION STUDY TECHNICIAN) Patholo gist Method Time Signature Source Urine, Urine, 11/25/2021 DTL Midstream 12:04 PM MOTION STUDY TECHNICIAN Color, U Yellow 11/25/2021 DTL 12:05 PM MOTION STUDY TECHNICIAN Clarity, U Clear 11/25/2021 DTL 12:05 PM MOTION STUDY TECHNICIAN Protein, U 5 <26 mg/dL 11/25/2021 DTL 12:56 PM MOTION STUDY TECHNICIAN Protein/Osmol 0.08 <0.42 11/25/2021 DTL ality ratio 12:56 PM MOTION STUDY TECHNICIAN Predicted 24 65 mg/24 h 11/25/2021 DTL Hr Protein 12:56 PM MOTION STUDY TECHNICIAN Predicted 16-262 mg/24 h 11/25/2021 DTL Range 12:56 PM MOTION STUDY TECHNICIAN Specimen Anatomical Collection Method Collection Time Receive d Time (Source) Location / / Volume Laterality Urine (Urine, 11/25/2021 11:40 11/25/2021 Midstream) AM MOTION STUDY TECHNICIAN 12:04 PM MOTION STUDY TECHNICIAN Bandar Paul M.D. LAB URINE ORDERABLES Performing Organization Address [facility] Phon e Number [facility] - [address] hCG (Human Chorionic Gonadotropin), Quantitative, (11/25/2021 10:17 AM MOTION STUDY TECHNICIAN) P athologist Signature HCG, <0.5 <5 IU/L 11/25/2021 STMA Quantitative, 10:43 AM MOTION STUDY TECHNICIAN , P Specimen Anatomical Collection Method Collection Time Receive d Time (Source) Location / / Volume Laterality Blood (Blood, 11/25/2021 10:17 11/25/2021 Venous) AM MOTION STUDY TECHNICIAN 10:22 AM MOTION STUDY TECHNICIAN Bandar Paul M.D. LAB BLOOD ADD-ON Performing Organization Address City/[facility] Phon e Number [facility] - [address] [place], [place] [address] [facility] [place] [address] [facility] 200 [facility] (ABNORMAL) Basic Metabolic Panel (11/25/2021 10:17 AM MOTION STUDY TECHNICIAN) P athologist Signature Potassium, P 4.8 3.6 - 5.2 11/25/2021 DTL mmol/L 11:21 AM MOTION STUDY TECHNICIAN Sodium, P 138 135 - 145 11/25/2021 DTL mmol/L 11:21 AM MOTION STUDY TECHNICIAN Chloride, P 105 98 - 107 11/25/2021 DTL mmol/L 11:21 AM MOTION STUDY TECHNICIAN Bicarbonate, P 27 22 - 29 11/25/2021 DTL mmol/L 11:21 AM MOTION STUDY TECHNICIAN Anion Gap, P 6 (L) 7 - 15 11/25/2021 DTL 11:21 AM MOTION STUDY TECHNICIAN BUN (Blood Urea 12 6 - 21 11/25/2021 DTL Nitrogen), P mg/dL 11:21 AM MOTION STUDY TECHNICIAN Creatinine 0.66 0.59 - 11/25/2021 DTL 1.04 mg/dL 11:21 AM MOTION STUDY TECHNICIAN eGFR-Black/Afric >90 >=60 11/25/2021 DTL an [place] African mL/min/BSA 11:21 AM MOTION STUDY TECHNICIAN Comment: ----ADDITIONAL INFORMATION---- Estimated GFR calculated using the 2009 CKD_EPI creatinine equation. eGFR Non-Black/ >90 >=60 mL/min/BSA 11/25/2021 11:21 AM MOTION STUDY TECHNICIAN DTL Comment: ----ADDITIONAL INFORMATION---- Estimated GFR calculated using the 2009 CKD_EPI creatinine equation. Calcium, Total, P 9.2 8.6 - 10.0 mg/dL 11/25/2021 11:2 1 AM MOTION STUDY TECHNICIAN DTL Glucose, P 90 70 - 140 mg/dL 11/25/2021 11:21 AM MOTION STUDY TECHNICIAN DTL Specimen Anatomical Collection Method Collection Time Receive d Time (Source) Location / / Volume Laterality Blood (Blood, 11/25/2021 10:17 11/25/2021 Venous) AM MOTION STUDY TECHNICIAN 10:22 AM MOTION STUDY TECHNICIAN Bandar Paul M.D. LAB BLOOD ADD-ON Performing Organization Address City/State/ZIP Code Phon e Number [facility] - [address] [place], [place] [address] [facility] [place] [address] [facility] 200 [facility] Lipase (11/25/2021 10:17 AM MOTION STUDY TECHNICIAN) P athologist Signature Lipase, S 27 13 - 60 U/L 11/25/2021 DTL 11:27 AM MOTION STUDY TECHNICIAN Specimen Anatomical Collection Method Collection Time Receive d Time (Source) Location / / Volume Laterality Blood (Blood, 11/25/2021 10:17 11/25/2021 Venous) AM MOTION STUDY TECHNICIAN 10:56 AM MOTION STUDY TECHNICIAN Bandar Paul M.D. LAB BLOOD ADD-ON Performing Organization Address City/[facility] Code Phon e Number [address] [place] [address] (ABNORMAL) Hepatic Function Panel (11/25/2021 10:17 AM MOTION STUDY TECHNICIAN) Patholo gist Method Time Signature Bilirubin, Total, S <0.2 <=1.2 11/25/2021 DTL mg/dL 11:27 AM MOTION STUDY TECHNICIAN Bilirubin, Direct, S <0.2 0.0 - 0.3 11/25/2021 DTL mg/dL 11:27 AM MOTION STUDY TECHNICIAN Aspartate 17 8 - 43 11/25/2021 DTL Aminotransferase U/L 11:27 AM MOTION STUDY TECHNICIAN (AST), S Alanine 26 7 - 45 11/25/2021 DTL Aminotransferase U/L 11:27 AM MOTION STUDY TECHNICIAN (ALT), S Alkaline 104 35 - 104 11/25/2021 DTL Phosphatase, S U/L 11:27 AM MOTION STUDY TECHNICIAN Albumin, S 3.9 3.5 - 5.0 11/25/2021 DTL g/dL 11:27 AM MOTION STUDY TECHNICIAN Protein, Total, S 6.1 (L) 6.3 - 7.9 11/25/2021 DTL g/dL 11:27 AM MOTION STUDY TECHNICIAN Specimen Anatomical Collection Method Collection Time Receive d Time (Source) Location / / Volume Laterality Blood (Blood, 11/25/2021 10:17 11/25/2021 Venous) AM MOTION STUDY TECHNICIAN 10:56 AM MOTION STUDY TECHNICIAN Bandar Paul M.D. LAB BLOOD ADD-ON Performing Organization Address City/State/[facility] Code Phon e Number [facility] - [address] [place], [place] [address] [facility] [place] [address] [facility] 200 [facility] (ABNORMAL) CBC with Differential, Blood (11/25/2021 10:17 AM MOTION STUDY TECHNICIAN) [facility] gist Method Time Signature Hemoglobin 13.8 11.6 - 11/25/2021 STMA 15.0 g/dL 10:26 AM MOTION STUDY TECHNICIAN Hematocrit 42.3 35.5 - 11/25/2021 STMA 44.9 % 10:26 AM MOTION STUDY TECHNICIAN Erythrocytes 4.83 3.92 - 11/25/2021 STMA 5.13 10:26 AM MOTION STUDY TECHNICIAN x10(12)/L MCV 87.6 78.2 - 11/25/2021 STMA 97.9 fL 10:26 AM MOTION STUDY TECHNICIAN RBC Distrib Width 13.5 12.2 - 11/25/2021 STMA 16.1 % 10:26 AM MOTION STUDY TECHNICIAN Platelet Count 371 157 - 371 11/25/2021 STMA x10(9)/L 10:26 AM MOTION STUDY TECHNICIAN Leukocytes 11.1 (H) 3.4 - 9.6 11/25/2021 STMA x10(9)/L 10:26 AM MOTION STUDY TECHNICIAN Neutrophils 7.33 (H) 1.56 - 11/25/2021 STMA 6.45 10:26 AM MOTION STUDY TECHNICIAN x10(9)/L Lymphocytes 2.79 0.95 - 11/25/2021 STMA 3.07 10:26 AM MOTION STUDY TECHNICIAN x10(9)/L Monocytes 0.66 0.26 - 11/25/2021 STMA 0.81 10:26 AM MOTION STUDY TECHNICIAN x10(9)/L Eosinophils 0.24 0.03 - 11/25/2021 STMA 0.48 10:26 AM MOTION STUDY TECHNICIAN x10(9)/L Basophils 0.03 0.01 - 11/25/2021 STMA 0.08 10:26 AM MOTION STUDY TECHNICIAN x10(9)/L Specimen Anatomical Collection Method Collection Time Receive d Time (Source) Location / / Volume Laterality Blood (Blood, 11/25/2021 10:17 11/25/2021 Venous) AM MOTION STUDY TECHNICIAN 10:22 AM MOTION STUDY TECHNICIAN Bandar Paul M.D. LAB BLOOD ADD-ON Performing Organization Address City/State/ZIP Code Phon e Number [facility] - [address] [place] [address] [address] SARS Coronavirus 2, PCR Rapid, V Symptomatic (11/25/2021 10:03 AM MOTION STUDY TECHNICIAN) [facility] Method Time Signature SARS CoV-2, Undetected Undetected 11/25/2021 [facility], Rapid, V 10:40 AM MOTION STUDY TECHNICIAN Comment: ----ADDITIONAL INFORMATION---- This RT-PCR test was performed using the Bryant SARS-CoV-2 and Influenza A/B Reagent assay from [employer], which has received Emergency Use Authori zation(EUA) by the U.S. Food and Drug Administration . Fact sheets for this Emergency Use Autho rization (EUA) assay can be found at the following link s: For Healthcare Providers: https://www.fda.gov/media/407206/downloa d For Patients: https://www.fda.gov/media/903199/downloa d SARS Coronavirus 2, Source, Swab, Nasopharynx 10/30 10:16 AM MOTION STUDY TECHNICIAN [facility] Rapid Specimen Anatomical Collection Method Collection Time Receive d Time (Source) Location / / Volume Laterality Varies 11/25/2021 10:03 11/25/2021 (Nasopharynx) AM MOTION STUDY TECHNICIAN 10:16 AM MOTION STUDY TECHNICIAN Bandar Paul M.D. LAB MICROBIOLOGY - GENERAL O RDERABLES Performing Organization Address City/State/ZIP Code Phon e Number [address] documented in this encounter Visit Diagnoses Diagnosis Lower Abdominal Pain Unspecified - Prima ry Diarrhea documented in this encounter Administered Medications Inactive Administered Medications - up to 3 most recent administrations Medication Order MAR Action Action Date Dose Rate Site fentaNYL injection 50 mcg Given 11/25/2021 10:34 AM 50 mcg Right Upper Arm (SUBLIMAZE) MOTION STUDY TECHNICIAN 50 mcg, intravenous, Once, On Thu11/25/21 at 1005, For 1 dose HYDROmorphone injection 0.5 mg (DILAUDID ) Given 11/25/2021 11:32 AM MOTION STUDY TECHNICIAN 0.5 mg 0.5 mg, intravenous, Once, On Thu11/25/21 at 1130, For 1 dose iohexoL 300 mg iodine/mL solution 200 mL Given 11/25/2021 12:28 PM MOTION STUDY TECHNICIAN 200 mL (OMNIPAQUE) 200 mL, intravenous, Once in imaging, contrast, Starting on Thu11/25/21 at 1227, For 1 dose ondansetron ODT disintegrating tablet 4 mg Given 11/25/2021 10:3 4 AM MOTION STUDY TECHNICIAN 4 mg (ZOFRAN-ODT) 4 mg, oral, Once, On Thu11/25/21 at 1005, For 1 dose, When splitting ODT at bedside, handle with gloves and a pill splitter to prevent moisture contact. ondansetron ODT disintegrating tablet 4 mg Given 11/25/2021 1:19 PM MOTION STUDY TECHNICIAN 4 mg (ZOFRAN-ODT) 4 mg, oral, Once, On Thu11/25/21 at 1315, For 1 dose, When splitting ODT at bedside, handle with gloves and a pill splitter to prevent moisture contact. sodium chloride (PF) 0.9 % injection 50 mL Given 11/25/2021 12:29 PM MOTION STUDY TECHNICIAN 50 mL 50 mL, intravenous, Once, On Thu11/25/21 at 1229, For 1 dose sodium chloride 0.9 % injection 2-10 mL 2-10 mL, intravenous, As needed, line care, Starting o n Thu11/25/21 at 1002 documented in this encounter Active and Recently Administered Medications Times are shown in MOTION STUDY TECHNICIAN. Scheduled Medication Order 11/23/2021 11/24/2021 11/25/2021 fentaNYL [...] ED) 1034 (Given - Provider: Janice Downs RMayurNMayur) 4 mg, oral, Once, On Thu11/25/21 at [...] COVID19 Pending 11/25/2021 11/25/2021 11/25/2021 10:40 AM MOTION STUDY TECHNICIAN Assessment Noted Time PHQ-9 Depression Total Score: 7 11/29/2015 11:32 AM CS T documented as of this encounter Care Teams Drawing Box Tender Relationship Specialty Start Date End Date Elsewhere, Pcp PCP - General 05/29/19 documented as of this encounter
--- OUTSIDE RECORDS SUMMARY | 2022-07-14 15:00 | XMS_ITS | Encounter Summary ---
:1990 Author Organization [facility] Address [address] [place] [address] Care Team Providers Name Role Phone Elsewhere, Pcp Primary Care Provider Unavailable Reason for Visit Reason Onset Date Comments Outpatient COVID-19 Testing 02/04/2022 Encounter Details Date Type Department Care Team Description 02/04/2022 External Outreach Department of Delfino Zamora Contact With And Orthopedic Surgery Álvaro, LMayurP.NMayur (Suspected) Exposure in [place], [place] [address] AM[place] To COVID-19 (Primary [address] AM[place], [place] Dx) [place] [phone] Social History Tobacco Use Types Packs/Day Years Used Date Smoking Tobacco: Every Day Cigarettes 0.8 Smokeless Tobacco: Never Alcohol Use Standard Drinks/Week Comments Yes 12 (1 standard drink = 0.6 oz pure alcoh ol) Sex Assigned at Date Recorded Not on file documented as of this encounter Progress Notes Delfino Zamora L.PMayurN. - 02/04/2022 1:41 PM CDT Encounter created [...] 2, PCR, V (02/04/2022 4:10 PM CDT) [facility] Method Time Signature SARS-Coronavi Undetected Undetected 02/04/2022 [facility] jeanie-2, PCR 5:30 PM CDT Comment: SARS-CoV-2 RNA absent. ?? ----ADDITIONAL INFORMATION---- This RT-PCR test using the Xpert Xpress SARS-CoV-2/Flu/RSV assay ([employer] performed on the [employer] rt DX systems has received Emergency Use Authorization (EU A) by the U.S. Food and Drug Administration. Performanc e characteristics were verified by [facility] in a manner consistent with CLIA requirements . Fact sheets for this Emergency Use Autho rization (EUA) assay can be found at the following link s: For Healthcare Providers: https://www.fda.gov/media/062449/downloa d For Patients: https://www.fda.gov/media/337256/downloa d Specimen Source Nasopharyngeal Swab 02/04/2022 4:3 3 PM CDT AUST Specimen Anatomical Collection Method Collection Time Receive d Time (Source) Location / / Volume Laterality Varies 02/04/2022 4:10 PM 4:33 CDT PM CDT Stacy Pearl APRN C.N.P., R.N. LAB MICROBIOLOGY - GEN ERAL ORDERABLES Performing Organization Address City/State/ZIP Code Phon e Number [facility] [address] [place] [address] [facility] [place], [place] [id number] [place] [address] documented in this [...] documented as of this encounter Care Teams Rehabilitation Services Manager Relationship Specialty Start Date End Date Elsewhere, Pcp PCP - General 05/29/19 documented as of this encounter
--- OUTSIDE RECORDS SUMMARY | 2022-07-14 15:00 | XMS_ITS | Encounter Summary ---
:[address] [facility] Address [address] [place] [address] Care Team Providers Name Role Phone Elsewhere, Pcp Primary Care Provider Unavailable Reason for Visit Reason Comments Mass Encounter Details Date Type Department Care Team Description 02/03/2022 Nurse Triage Department of [facility] Eric Vance RMayurN. [facility] Medicine, [facility], (Wo rk) in [place], [place] [address] [place] [address] Social History Tobacco Use Types Packs/Day Years [...] appointment is required for testing, please call [phone] Thursday-Thursday 7am to 7:30pm and Thursday & Thursday 9am to 4pm to schedule an appointment. Testing hours areMon-Thu & Thu 8am-4:30pm and Thu & 8am-12pm. You can also schedule via your Patient [email or web address] account., Please avoid using public transportation per CDC recommendation. If you do nothave personal transportation please self-quarantine until a personal transportation option is available. Standard Care Points -Get a COVID -19 vaccine as soon as you can if not fully vaccinated. -Wash hands frequently with soap and water, use hand burlapper if soap and water aren't available. -Wear [...] care: Yes The following references were used: [facility] novel coronavirus (COVID- 19) resources Telephone Encounter [...] 3 days. Patient was warm transferred to [facility] at the clinic for further assistance. Reason for Disposition ??? Tender lump (swelling or ball) at vaginal opening Protocols used: VULVAR [id number] Care Advice Patient/Caregiver understands and will follow care advice?: Yes, able to teach back SEE PCP WITHIN 24 HOURS: * IF OFFICE WILL BE OPEN: You need to be examined within the next 24 hours. Call your doctor (or MEDICAL RESEARCH ASSISTANT/PA) when the office opens and make [...] acetaminophen, ibuprofen, or naproxen. * They are kneu-rzr-tzwkbeu (OTC) pain drugs. You can buy them [...] acetaminophen overdose can hurt the liver. * [employer], the company that makes Tylenol, has different dosage instructions for Tylenol in [place] and the [place]. In [place], the maximum recommended dose per day is 4,000 mg or twelve Regular-Strength (325 mg) pills. In the [place], the maximum dose per day is ten Regular-Strength (325 mg) pills. * [employer], the company that makes Aleve, has different dosage instructions for Aleve in [place] [facility]. In [place], the maximum recommended dose per day is 440 mg (2 pills or caplets). In the [place], the maximum dose per day is [...] documented as of this encounter Care Teams Snowboard Designer Relationship Specialty Start Date End Date Elsewhere, Pcp PCP - General 05/29/19 documented as of this encounter
--- OUTSIDE RECORDS SUMMARY | 2022-07-14 15:00 | XMS_ITS | Encounter Summary ---
:1990 Author Organization [facility] Address [address] [place] [address] Care Team Providers Name Role Phone Elsewhere, Pcp Primary Care Provider Unavailable Encounter Details Date Type Department Care Team Description 05/30/2022 Orders Only Department of Family Rosemary White AP RN, Medicine, [facility], in C.N[place] P., M.S.N. [place], [place] [address] [place] [address] [place] [address] [place] [address] [phone] Social History Tobacco Use Types Packs/Day Years [...] documented as of this encounter Care Teams [employer] Relationship Specialty Start Date End Date Elsewhere, Pcp PCP - General 05/29/19 documented as of this encounter
--- OUTSIDE RECORDS SUMMARY | 2022-07-14 15:00 | XMS_ITS | Encounter Summary ---
:1990 Author Organization [facility] Address [address] [place] [address] Care Team Providers Name Role Phone Elsewhere, Pcp Primary Care Provider Unavailable Reason for Visit Reason Comments Communication Results Encounter Details Date Type Department Care Team Description 06/06/2022 Clinical Communication Department of Stacy Pearl unication; Family Medicine, L, SUPERVISOR ROAD ADMINISTRATOR, Results [facility], in C.N.P., R.N. [place], [place] [address] [place] [phone] Social History Tobacco Use Types Packs/Day Years Used Date Smoking Tobacco: Every Day Cigarettes 0.8 Smokeless Tobacco: Never Alcohol Use Standard Drinks/Week Comments Yes 12 (1 standard drink = 0.6 oz pure alcoh ol) Sex Assigned at Date Recorded Not on file documented as of this encounter Miscellaneous Notes Telephone Encounter - Trinity Caba L.PKameron - 06/06/2022 11:58 AM CDT Communication added into other communication Telephone Encounter - Katie Flynn - 06/06/2022 11:53 AM CDT Rosemary White APRN, C.N.P., M.S.N. 05/30/2022 11:25 AM CDT Vagnitis panel reveals you have bacterial vaginosis. [...] symptoms, please follow up. Telephone Encounter - Elena Young - 06/06/2022 11:49 AM CDT TEST RESULT QUESTION: Type of test: Urine/swabs from visit on 05/29 Date of test: 05/29 Which provider/department ordered the test? Stacy Pearl Comments: Pt would like detailed voicemail left if unavailable Route to TELEPHONE AD TAKER pool of ordering provider. documented in this encounter Plan of Treatment Not on filedocumented as of this encounter Visit Diagnoses Not on filedocumented in this encounter Additional Health Concerns Assessment Noted Time PHQ-9 Depression Total Score: 7 11/29/2015 11:32 AM CS T documented as of this encounter Care Teams Water Fabricator Operator Relationship Specialty Start Date End Date Elsewhere, Pcp PCP - General 05/29/19 documented as of this encounter
--- OUTSIDE RECORDS SUMMARY | 2022-07-14 15:01 | XMS_ITS | Encounter Summary ---
:1990 Author Organization [facility] Address [address] [place] [address] Care Team Providers Name Role Phone Elsewhere, Pcp Primary Care Provider Unavailable Reason for Visit Reason Comments Abdominal Cramping Nausea Vaginal Discharge Appointment Request (Routine) - Closed Specialty Diagnoses / Procedures Referred By Contact Refer red To Contact Family Medicine Referral ID Status Reason Start Date Expiration Date Visits Requ ested Visits Authorized [id number] Closed 11/01/2021 11/01/2022 1 1 Encounter Details Date Type Department Care Team Description 11/01/2021 Office Visit Urgent Care in [place] Kim L, Ten derness Periumbilical (Primary Dx); [place] SYSTEMS SECURITY CONSULTANT, C.N.P., Bleeding Vaginal; [address] [place] [phone] [place] [phone] [place] [phone] Social History Tobacco Use Types Packs/Day Years Used Date Smoking Tobacco: Every Day Cigarettes 0.8 Smokeless Tobacco: Never Tobacco Cessation: Counseling Given: No Alcohol Use Standard Drinks/Week Comments Yes 4 (1 standard drink = 0.6 oz pure alcoho l) every other week Sex Assigned at Date Recorded Not on file documented as of this encounter Last Filed Vital Signs Vital Sign Reading Time Taken Comments Blood Pressure 122/84 11/01/2021 11:41 AM ACCOUNTING CLERKS SUPERVISOR Pulse 91 11/01/2021 11:41 AM ACCOUNTING CLERKS SUPERVISOR Temperature 36.8 ??C (98.2 ??F) 11/01/2021 11:41 AM ACCOUNTING CLERKS SUPERVISOR Respiratory Rate 18 11/01/2021 11:41 AM ACCOUNTING CLERKS SUPERVISOR Oxygen Saturation 99% 11/01/2021 11:41 AM ACCOUNTING CLERKS SUPERVISOR Inhaled Oxygen Concentration - - Weight 134 kg (295 lb 6.7 oz) 11/01/2021 11:41 AM ACCOUNTING CLERKS SUPERVISOR Height - - Body Mass Index 49.82 [...] kg/m??. Vitals reviewed. Exam conducted with a search consultant present. Constitutional General: She is not in [...] include listening. Explained diagnosis and treatment plan; patient/child/field engineer expressed understanding of the content. UNTING CLERKS SUPERVISOR documented in this encounter Miscellaneous Notes Result Encounter Note - Stacy Pearl APRN, C.N.P., R.N. - 11/01/2021 4:18 PM CST Please [...] initiating any treatment. GC chlamydia still pending. UNTING CLERKS SUPERVISOR documented in this encounter Plan of Treatment Not on filedocumented as of this encounter Procedures Procedure Name Priority Date/Time Associated Diagnosis Comme nts VAGINITIS PANEL STAT 11/01/2021 12:18 PM Bleeding Vag inal Results for this ACCOUNTING CLERKS SUPERVISOR Discharge Vaginal procedure are in the results section. CHLAMYDIA/GONORRHOE STAT 11/01/2021 12:18 PM Bleeding Vaginal Results for this AE AMPLIFIED RNA ACCOUNTING CLERKS SUPERVISOR Discharge Vaginal proced ure are in the results section. documented in this encounter Results (ABNORMAL) Bacterial Culture, Aerobic + Susc, Urine (11/01/2021 12:56 PM ACCOUNTING CLERKS SUPERVISOR) Analysis Performed At Patho logist Time Signature Urine Culture Mixed 11/02/2021 [facility] mary beth. (A) 12:18 PM ACCOUNTING CLERKS SUPERVISOR Specimen Anatomical Collection Method Collection Time Receive d Time (Source) Location / / Volume Laterality Urine (Urine, 11/01/2021 12:56 11/01/2021 5:43 Midstream) PM ACCOUNTING CLERKS SUPERVISOR PM ACCOUNTING CLERKS SUPERVISOR Comment: Specimen Source Site: Urine Stacy Pearl APRN, Brenden.N.P., R.N. LAB MICROBIOLOGY - GEN ERAL ORDERABLES Performing Organization Address City/State/ZIP Code Phon e Number [facility]- [address] [place] [id number] [place] [address] (ABNORMAL) Urinalysis with Microscopic: Urine, Midstream (11/01/2021 12:56 PM ACCOUNTING CLERKS SUPERVISOR) Analysis Performed At Patho logist Time Signature Source Urine, Urine, 11/01/2021 [place] Midstream 1:06 PM ACCOUNTING CLERKS SUPERVISOR Clarity Clear Clear 11/01/2021 [facility] 1:06 PM ACCOUNTING CLERKS SUPERVISOR Color Yellow 11/01/2021 [facility] 1:06 PM ACCOUNTING CLERKS SUPERVISOR Comment: ----REFERENCE VALUE---- Colorless Yellow Corinne Blood Moderate (A) Negative 11/01/2021 1:06 PM ACCOUNTING CLERKS SUPERVISOR AUST Nitrite Negative Negative 11/01/2021 1:06 PM ACCOUNTING CLERKS SUPERVISOR A[facility] Leukocyte Esterase Trace (A) Negative 11/01/2021 1:06 PM CS T AUST Protein Negative mg/dL 11/01/2021 1:06 PM ACCOUNTING CLERKS SUPERVISOR AUST Comment: ----REFERENCE VALUE---- Negative Trace Glucose Negative Negative mg/dL 11/01/2021 1:06 PM ACCOUNTING CLERKS SUPERVISOR AU ST Ketone Negative Negative mg/dL 11/01/2021 1:06 PM ACCOUNTING CLERKS SUPERVISOR AU ST Bilirubin Negative Negative 11/01/2021 1:06 PM ACCOUNTING CLERKS SUPERVISOR AUST pH 5.0 5.0 - 8.0 11/01/2021 1:06 PM ACCOUNTING CLERKS SUPERVISOR [facility] Specific Gepp 1.023 1.001 - 1.035 11/01/2021 1:06 PM ACCOUNTING CLERKS SUPERVISOR [facility] Urobilinogen 0.2 0.2 - 1.0 mg/dL 11/01/2021 1:06 PM CS T AUST White Blood Cells Occ-3 /hpf 11/01/2021 1:09 PM ACCOUNTING CLERKS SUPERVISOR AUST Comment: ----REFERENCE VALUE---- Males: 0-3 Females: 0-10 Unknown: 0-10 Red Blood Cells Occ-2 0 - 2 /hpf 11/01/2021 1:09 PM ACCOUNTING CLERKS SUPERVISOR A[facility] Hyaline Casts 1-3 /lpf 11/01/2021 1:09 PM ACCOUNTING CLERKS SUPERVISOR AUS T Squamous Cells Occ-3 /hpf 11/01/2021 1:09 PM ACCOUNTING CLERKS SUPERVISOR AU ST Specimen Anatomical Collection Method Collection Time Receive d Time (Source) Location / / Volume Laterality Urine (Urine, 11/01/2021 12:56 11/01/2021 1:00 Midstream) PM ACCOUNTING CLERKS SUPERVISOR PM ACCOUNTING CLERKS SUPERVISOR Stacy Pearl APRN, C.N.P., R.N. LAB URINE ORDERABLES Performing Organization Address City/State/ZIP Code Phon e Number [facility]- [address] [place] [address] [place] [facility] [place] [address] [place] [address] [facility] hCG (Human Chorionic Gonadotropin), Quantitative, (11/01/2021 12:29 PM ACCOUNTING CLERKS SUPERVISOR) P athologist Signature HCG, <0.5 <5 IU/L 11/01/2021 A[facility] Quantitative, 2:40 PM ACCOUNTING CLERKS SUPERVISOR , P Comment: Biotin has been identified by the bety chapa as a potential interfering substance. ??Higher concentr ations of biotin may be found in multivitamins, hair/nail supple ments, and workout supplements. ??If the result does not ma [facility] clinical observations, repeat testing after patient refrains fr om the use of supplements for at least 12 hours. Specimen Anatomical Collection Method Collection Time Receive d Time (Source) Location / / Volume Laterality Blood (Blood, 11/01/2021 12:29 11/01/2021 1:04 Venous) PM ACCOUNTING CLERKS SUPERVISOR PM ACCOUNTING CLERKS SUPERVISOR Stacy Pearl APRN, C.N.P., R.N. LAB BLOOD ADD-ON Performing Organization Address City/[facility]/ZIP Code Phon e Number [facility]- [address] [place] [address] [place] [facility] [place] [address] [place] [address] [facility] [facility] (ABNORMAL) Vaginitis Panel (11/01/2021 12:18 PM ACCOUNTING CLERKS SUPERVISOR) Patholo gist Method Time Signature Katie Negative Negative 11/01/2021 [facility] species, DNA 1:29 PM ACCOUNTING CLERKS SUPERVISOR Gardnerella Positive (A) Negative 11/01/2021 [facility] vaginalis, DNA 1:29 PM ACCOUNTING CLERKS SUPERVISOR Trichomonas Negative Negative 11/01/2021 [facility] vaginalis, DNA 1:29 PM ACCOUNTING CLERKS SUPERVISOR Specimen Anatomical Collection Method Collection Time Receive d Time (Source) Location / / Volume Laterality Swab (Vagina) 11/01/2021 12:18 11/01/2021 PM ACCOUNTING CLERKS SUPERVISOR 12:35 PM ACCOUNTING CLERKS SUPERVISOR Stacy Pearl APRN, C.N.P., R.N. LAB MICROBIOLOGY - GEN ERAL ORDERABLES Performing Organization Address City/[facility]/ZIP Code Phon e Number [facility]- [address] [place] [phone] [place] [facility] [place] [address] [facility] [address] Chlamydia / Gonorrhoeae Amplified RNA (11/01/2021 12:18 PM ACCOUNTING CLERKS SUPERVISOR) [facility] Method Time Signature Source Swab, Vagina 11/04/2021 MKTO 3:19 PM ACCOUNTING CLERKS SUPERVISOR Chlamydia Negative Negative 11/04/2021 MKTO trachomatis 3:19 PM ACCOUNTING CLERKS SUPERVISOR amplified RNA Source Swab, Vagina 11/04/2021 MKTO 3:19 PM ACCOUNTING CLERKS SUPERVISOR Neisseria Negative Negative 11/04/2021 MK[facility] gonorrhoeae 3:19 PM ACCOUNTING CLERKS SUPERVISOR amplified RNA Specimen Anatomical Collection Method Collection Time Receive d Time (Source) Location / / Volume Laterality Varies (Vagina) 11/01/2021 12:18 11/01/19 22 5:43 PM ACCOUNTING CLERKS SUPERVISOR PM ACCOUNTING CLERKS SUPERVISOR Stacy Pearl APRN, C.N.P., R.N. LAB MICROBIOLOGY - GEN ERAL ORDERABLES Performing Organization Address City/State/ZIP Code Phon e Number [facility]- [address] [place] [address] [place] [address] System [address] documented in this encounter Visit Diagnoses Diagnosis Tenderness Periumbilical - Primary Bleeding Vaginal Discharge Vaginal documented in this encounter Additional Health Concerns Assessment Noted Time PHQ-9 Depression Total Score: 7 11/29/2015 11:32 AM CS T documented as of this encounter Care Teams Material Stress Tester Relationship Specialty Start Date End Date Elsewhere, Pcp PCP - General 05/29/19 documented as of this encounter
--- OUTSIDE RECORDS SUMMARY | 2022-07-14 15:01 | XMS_ITS | Encounter Summary ---
:1990 Author Organization [facility] Address [address] [place] [address] Care Team Providers Name Role Phone Unavailable Primary Care Provider Unavailable Encounter Details Date Type Department Care Team Description 01/05/2015 Hospital Encounter HX [facility] Nancy Mcconnell, P.A. [address] [place] [address] BILL Dominguez [phone] (Wo rk) Social History Tobacco Use Types [...] usual eczema creams, including Eucerin, Lubriderm, or clbg-sbu-uewkiyu eczema cream seem to be helping. She [...] CHAMBERS PA-C On: 01/29/2015 06:36 PM Source: [facility] MHSDOLBEYNDAMIÁNRADSYS Document Id: [id number] documented in this encounter Miscellaneous Notes Miscellaneous - Nancy Chambers - 01/05/2015 5:39 PM CDT Ambulatory Patient Summary [facility] [address] [place], [place] [id number] Visit Information Name: YOLANDA LEONE [facility] Number: [id number] Current Date: 01/05/2015 17:39:40 Physicians Attending Provider: NANCY CHAMBERS PA-C Primary Care Provider: NANCY CHAMBERS PA-C SULEMA YOLANDA GREENFIELD has been given the [...] Rash x 14 day(s) New Routed to [place] [address] [place] [address] * You have let us know that [...] Appointments Date Time Location Provider 04/05/2015 08:30 [facility] Room 2 04/05/2015 09:00 [facility] Room 1 Attention: Contact your local Clinic if further appointment detail needed. Your Goals/Additional instructions: Source: [facility] POWERCHART Document Id: [id number] Miscellaneous - Nancy Chambers - 01/05/2015 5:39 PM CDT Ambulatory Discharge Medication List [facility] [address] [place] [id number] Visit Information Name: YOLANDA LEONE [facility] Number: [id number] Visit Date: 01/05/2015 17:39:39 Attending [...] Rash x 14 day(s) New Routed to [facility] [address] [place] [address] * You have let us know that [...] PA-C Signed On:05-JAN-2015 17:39:33 Additional Information: Source: [facility] POWERCHART Document Id: [id number] Miscellaneous - Nancy Chambers - 01/05/2015 5:36 PM CDT Work Excuse 05 January 2015 YOLANDA READ [id number] [facility] [id number] Dear YOLANDA READ, You were examined in [...] medical appointment this afternoon. Sincerely, NANCY CHAMBERS [address] [place] [id number] Electronic Signature Electronically Signed By: NANCY CHAMBERS PA-C On: 05 January 2015 This document has images extracted. 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 : No AARONTONI HALLIENNE - 01/05/2015 16:16 CDT Subjective Pain Symptoms : No Skin Symptoms : Itching, Rash AARONTONI HALLIENNE - 01/05/2015 16:16 CDT Dependent Habits Tobacco [...] Contact with someone with Ebola : No JAYSARAHYAZMIN - 01/05/2015 16:16 CDT Source: [facility] POWERCHART Document Id: [id number] documented in this encounter Plan of Treatment Not on filedocumented as of this encounter Procedures Procedure Name Priority Date/Time Associated Diagnosis Comme nts FUNGAL SMEAR Routine 01/05/2015 5:07 PM Results f or this CDT procedure are i n the results section . documented in this encounter Results Fungal Smear (01/05/2015 5:07 PM CDT) [facility] gist Method Time Signature [id number] S/H/N [...]
--- OUTSIDE RECORDS SUMMARY | 2022-07-14 15:01 | XMS_ITS | Encounter Summary ---
:1990 Author Organization [facility] Address [address] [place] [address] Care Team Providers Name Role Phone Elsewhere, Pcp Primary Care Provider Unavailable Reason for Visit Reason Comments Psychiatric Evaluation Patient comes in for suicida l thoughts. States she has had thoughts tonight of wanting to hang herself with an electrical cord. Encounter Details Date Type Department Care Team Description 06/28/2020 Emergency [facility] Tung Mcmahan, Suicide Ideation (Primary Dx); System-[place] M.D. Alcohol Abuse With Intoxication Unspecif ied ([facility]) [address] [facility] [phone] [place] HAND (Work) [phone] Social History Tobacco Use Types Packs/Day Years Used Date Smoking Tobacco: Every Day Smokeless Tobacco: Never Alcohol Use Standard Drinks/Week Comments Yes 30 (1 standard drink = 0.6 oz pure drink s 10- 16 ounce cans of beer alcohol) 2-3 days a week Sex Assigned at [...] documented in this encounter Discharge Instructions Discharge Ayaka Jarrett M.D. - 06/28/2020 8:47 AM CDT Return to the emergency department if you are feeling suicidal or if you feel like you are going to hurt somebody else. Please drink in moderation AttachmentsThe following attachments cannot be sent through Care Everywhere. Suicidal Feelings: How to Help Yourself (German)documented in this encounter Medications at Time of [...] AM CDT Care of patient transferred to ca by Dr. Tung Mcmahan. Disposition pending Sober re-evaluation. Patient was evaluated at 7:30 a.m.. She is currently clinically sober. Patient states that she is not suicidal but does recall saying things when she was intoxicated early this morning. Patient is on mood stabilizers and has an outpatient therapist. DEC to re-evaluate to electrician assistant in determining final disposition . Dec [...] help. Nancy Cannon R.N. 06/28/20 0416 Tung Mcmahan M.D. - 06/28/2020 3:29 AM CDT SUBJECTIVE [...] Organization Address City/State/ZIP Code Phon e Number [facility] [place], [place] [address] [facility] [place] [address] [place] [facility] [place], [place] [address] [place] [facility] [address] Salicylate Level (06/28/2020 4:03 AM CDT) athologist Signature Salicylate, P <0.3 <30.0 mg/dL 06/28/2020 [place] 4:27 AM CDT Specimen Anatomical Collection Method Collection Time Receive d Time (Source) Location / / Volume Laterality Blood (Blood, 06/28/2020 4:03 AM 06/28/20 20 4:05 Venous) CDT AM CDT Tung Mcmahan M.D. LAB BLOOD ADD-ON Performing Organization Address City/State/ZIP Code Phon e Number [facility] [place], [place] [address] [facility] [place] [address] [place] [facility] [place] [address] [facility] [address] Acetaminophen Level (06/28/2020 4:03 AM CDT) [...] Organization Address City/State/ZIP Code Phon e Number [facility] [place], [place] [address] [facility] [place] [address] [place] [facility] [place] [address] [facility] [address] S-TSH (Thyroid-Stimulating Hormone - Sensitive) (06/28/2020 4:03 AM CDT) P athologist Signature TSH, Sensitive 3.5 0.3 - 4.2 06/28/2020 [place] mIU/L 4:31 AM CDT Comment: Biotin has been identified by the bety chapa as a potential interfering substance. ??Higher concentr ations of biotin may be found in multivitamins, hair/nail supple ments, and workout supplements. ??If the result does not [facility] clinical observations, repeat testing after patient refrains fr om the use of supplements for at least 12 hours. Specimen Anatomical Collection Method Collection Time Receive d Time (Source) Location / / Volume Laterality Blood (Blood, 06/28/2020 4:03 AM 06/28/20 4:05 Venous) CDT AM CDT Tung Mcmahan M.D. LAB BLOOD ADD-ON Performing Organization Address City/State/ZIP Code Phon e Number [facility] [place] [address] [facility] [place] [address] [place] [facility] [place] [address] [place] [facility] [address] (ABNORMAL) Basic Metabolic Panel (06/28/2020 4:03 [...] 4:27 AM CDT eGFR-Black/Afri >90 >=60 06/28/2020 [place] can Jamaican mL/min/BSA 4:27 AM CDT Comment: ----ADDITIONAL INFORMATION---- [...] Organization Address City/State/ZIP Code Phon e Number [facility] [place] Hand [phone] [facility] [place] [address] [place] [facility] [address] [place] [facility] [address] [facility] (ABNORMAL) CBC with Differential, Blood (06/28/2020 4:03 AM CDT) [facility] Method Time Signature Hemoglobin 14.6 11.6 - [...] Organization Address City/State/ZIP Code Phon e Number [facility] [place], [place] [address] [facility] [place] [address] [place] [facility] [place] [address] [facility] [address] ECG 12 Lead (06/28/2020 3:37 AM CDT) P athologist Signature Ventricular Rate 110 BPM MUSE ECG/Min KS Interval 136 ms MUSE QRSD Interval 82 ms MUSE QT Interval 336 ms MUSE QTC Interval 454 ms MUSE P [place] 43 degrees MUSE R [place] -2 degrees MUSE T Wave [place] 13 degrees MUSE Specimen Anatomical Collection Method [...] RNA, V Asymptomatic (06/28/2020 3:27 AM CDT) [facility] Method Time Signature SARS-CoV-2 Swab, 06/28/2020 MKTO [...] is performed using the Aptima SARS-CoV-2 assay ([employer] which has received Emergency Use Authori zation (EUA) by the U.S. Food and Drug Administration. Fact sheets for this Emergency Use Autho rization (EUA) assay can be found at the following links: For Healthcare Providers: https://www.fd a.gov/media/532061/download For Patients: https://www.fda.gov/media/ 949061/download Specimen Anatomical Collection Method Collection Time Receive d Time (Source) Location / / Volume Laterality Varies 06/28/2020 3:27 AM 0 (Nasopharynx) CDT 10:57 AM CDT Tung Mcmahan M.D. LAB MICROBIOLOGY - GENERAL O RDERABLES Performing Organization Address City/[facility]/ZIP [facility] Phon e Number [facility]- [address] [place] [address] [place] [address] System in [address] Test, POCT, Urine (lab) (06/28/2020 3:27 AM CDT) athologist Signature Negative 06/28/2020 [place] Test, POCT, U 3:59 AM CDT Specimen Anatomical Collection Method Collection Time Receive d Time (Source) Location / / Volume Laterality Urine (Urine, 06/28/2020 3:27 AM 06/28/20 20 3:53 Midstream) CDT AM CDT Tung Mcmahan M.D. LAB POCT ORDERABLES - DEVICE Performing Organization Address City/[facility] Phon e Number [facility] [place] [address] [facility] [place] [place] [address] [place] [facility] [place] [address] [place] [facility] [address] Drug Screen Urine (06/28/2020 3:27 AM CDT) P athologist Signature Amphetamines, Negative Negative 06/28/2020 [place] U 4:04 AM CDT Comment: ----ADDITIONAL INFORMATION---- Clinical Science Liaison's Cutoff: 500 ng/mL Barbiturates, U Negative Negative 06/28/2020 4:04 AM CDT A VIKRAM Comment: ----ADDITIONAL INFORMATION---- Clinical Science Liaison's Cutoff: 200 ng/mL Benzodiazepines, U Negative Negative 06/28/2020 4:04 AM CD T [place] Comment: ----ADDITIONAL INFORMATION---- Clinical Science Liaison's Cutoff: 150 ng/mL Buprenorphine, U Negative Negative 06/28/2020 4:04 AM CDT [place] Comment: ----ADDITIONAL INFORMATION---- Clinical Science Liaison's Cutoff: 10 ng/mL Cocaine, U Negative Negative 06/28/2020 4:04 AM CDT [place] Comment: ----ADDITIONAL INFORMATION---- Clinical Science Liaison's Cutoff: 150 ng/mL Methadone, U Negative Negative 06/28/2020 4:04 AM CDT [place] Comment: ----ADDITIONAL INFORMATION---- Clinical Science Liaison's Cutoff: 200 ng/mL Methamphetamines, U Negative Negative 06/28/2020 4:04 AM C CEDRICK LOMAS Comment: ----ADDITIONAL INFORMATION---- Clinical Science Liaison's Cutoff: 500 ng/mL Opiates, U Negative Negative 06/28/2020 4:04 AM CDT [place] Comment: ----ADDITIONAL INFORMATION---- Clinical Science Liaison's Cutoff: 100 ng/mL Oxycodone, U Negative Negative 06/28/2020 4:04 AM CDT [place] Comment: ----ADDITIONAL INFORMATION---- Clinical Science Liaison's Cutoff: 100 ng/mL Phencyclidine, U Negative Negative 06/28/2020 4:04 AM CDT [place] Comment: ----ADDITIONAL INFORMATION---- Clinical Science Liaison's Cutoff: 25 ng/mL Propoxyphene, U Negative Negative 06/28/2020 4:04 AM CDT Joseph SUE Comment: ----ADDITIONAL INFORMATION---- Clinical Science Liaison's Cutoff: 300 ng/mL Tetrahydrocannabinol, U Negative Negative 06/28/2020 4:04 AM CDT [place] Comment: ----ADDITIONAL INFORMATION---- Clinical Science Liaison's Cutoff: 50 ng/mL Tricyclic Antidepressants, U Negative Negative 06/28/2020 4:04 AM CDT [place] Comment: ----ADDITIONAL INFORMATION---- Clinical Science Liaison's Cutoff: 300 ng/mL THE ABOVE DRUG SCREEN PANEL IS FOR MED ICA PURPOSES ONLY Specimen Anatomical Collection Method Collection Time Receive d Time (Source) Location / / Volume Laterality Urine (Urine, 06/28/2020 3:27 AM 06/28/20 3:53 Clean Catch) CDT AM CDT Tung Mcmahan M.D. LAB URINE ORDERABLES Performing Organization Address City/State/ZIP Code Phon e Number [facility] [place], [place] [address] [facility] [place] [address] [place] [facility] [address] [facility] [address] documented in this encounter Visit Diagnoses [...] Daily, First dose (after last modification) on Soco 06/28/20 at 0434 FLUoxetine capsule 60 mg (PROzac) Given 06/28/2020 5:02 AM CDT 60 mg 60 mg, oral, Daily, First dose (after last modification) on Soco 06/28/20 at 0434, FLUoxetine orderable was interchanged for FLUoxetine tablet/capsule lamoTRIgine tablet 300 mg (LaMICtal) Given 06/28/2020 5:01 AM CDT 300 mg 300 mg, oral, Daily, First dose (after last modification) on Soco 06/28/20 at 0434 documented in this encounter Active and Recently Administered Medications Times are shown in CDT. Scheduled Medication Order 06/26/2020 06/27/2020 06/28/2020 ARIPiprazole tablet 2 mg (ABILIFY) 0501 (Given - Provider: Nancy Cannon R.N.) 2 mg, oral, Daily, First dose (after last modification) on T hu 06/28/20 at 0434 FLUoxetine capsule 60 mg [...] documented as of this encounter Care Teams Rn Interventional Relationship Specialty Start Date End Date Elsewhere, Pcp PCP - General 05/29/19 documented as of this encounter
--- OUTSIDE RECORDS SUMMARY | 2022-07-14 15:01 | XMS_ITS | Encounter Summary ---
:1990 Author Organization [facility] Address [address] [place] [address] Care Team Providers Name Role Phone Elsewhere, Pcp Primary Care Provider Unavailable Reason for Visit Reason Comments Vaginal Bleeding Encounter Details Date Type Department Care Team Description 10/30/2021 Nurse Triage NURSE TRIAGE Alexander Doherty R.N. Vaginal Bleeding [address] [place], [place] [phone] Social History Tobacco Use [...] cramps Protocols used: ABDOMINAL PAIN - MENSTRUAL [id number] Care Advice Patient/Caregiver understands and will follow [...] per Abdominal Pain, Menstrual Cramps (Adult) guideline GE ASSESSOR documented in this encounter Plan of Treatment Not on filedocumented as of this encounter Visit Diagnoses Not on filedocumented in this encounter Additional Health Concerns Assessment Noted Time PHQ-9 Depression Total Score: 7 11/29/2015 11:32 AM CS T documented as of this encounter Care Teams Esthetician Makeup Artist Relationship Specialty Start Date End Date Elsewhere, Pcp PCP - General 05/29/19 documented as of this encounter
--- OUTSIDE RECORDS SUMMARY | 2022-07-14 15:01 | XMS_ITS | Encounter Summary ---
:1990 Author Organization [facility] Address [address] [place] [address] Care Team Providers Name Role Phone Unavailable [...] Comments Blood Pressure 124/68 08/04/2014 10:[address] ENGINEER Pulse 68 08/04/2014 10:[address] ENGINEER Temperature - - Respiratory Rate 18 08/04/2014 10:[address] ENGINEER Oxygen Saturation - - Inhaled Oxygen Concentration - - Weight 91.9 kg (202 lb 9.6 oz) 08/04/2014 10:[address] ENGINEER Height 164 cm (5' 4.57) 08/04/2014 10:[address] ENGINEER Body Mass Index 34.17 08/04/2014 10:[address] ENGINEER documented in this encounter Progress Notes Neha Montalvo M.D. - 08/04/2014 9:55 AM CST [id number] CHIEF COMPLAINT/REASON FOR VISIT Follow up on [...] their behalf by Rosemary Katz, a trained senior medical writer. The creation of this record is based on the scribe's personal observations and the provider's statements to them. This document has been checked and approved by the attending provider. Neha Leos M.D./serg Electronically Signed By: NEHA LEOS MD On: 08/05/2014 09:38 PM Source: [facility] MHSDOLBEYNONRADSYS Document Id: [id number] ENGINEER documented in this encounter Miscellaneous Notes Miscellaneous - Neha Montalvo M.D. - 08/04/2014 10:[address] ENGINEER Ambulatory Patient Summary [facility] [address] [place], [place] [id number] Visit Information Name: YOLANDA LEONE [facility] Number: [id number] Current Date: 08/04/2014 10:41:40 Physicians [...] appointment detail needed. Your Goals/Additional instructions: Source: [facility] POWERCHART Document Id: [id number] ENGINEER Miscellaneous - Neha Montalvo M.D. - 08/04/2014 10:[address] ENGINEER Ambulatory Discharge Medication List [facility] [address] [place], [place] [id number] Visit Information Name: YOLANDA LEONE [facility] Number: [id number] Visit Date: 08/04/2014 10:41:39 Attending [...] MD Signed On:04-AUG-2014 10:41:36 Additional Information: Source: [facility] POWERCHART Document Id: [id number] ENGINEER Miscellaneous - Conversion, Historical Provider Ser - 08/04/2014 10:[address] ENGINEER PHQ-9 PHQ-9 Entered On: 08/14/2014 15:09 ROAD ENGINEER Performed On: 08/04/2014 10:15 ROAD ENGINEER by JOYA PHOENIX-9 Little interest or pleasure [...] Somewhat difficult JOYA PHOENIX - 08/14/2014 15:08 ROAD ENGINEER Source: [facility] POWERCHART Document Id: [id number] ROAD ENGINEER!13 Miscellaneous - Lori Paris L.P.N. - 08/04/2014 10:03 AM CST Adult It Specialist Intake/History Adult It Specialist Intake/History Entered On: 08/04/2014 10:07 ROAD ENGINEER Performed On: 08/04/2014 10:03 ROAD ENGINEER by LORI PARIS Intake Chief Complaint : [...] 34.17 kg/m2 LORI PARIS - 08/04/2014 10:03 ROAD ENGINEER General Info Languages : Dominican Is Patient Female and 13-50 no hysterectomy : Yes Status : Patient denies Are you ? : No LORI PARIS - 08/04/2014 10:03 ROAD ENGINEER Subjective Pain Symptoms : No LORI PARIS - 08/04/2014 10:03 ROAD ENGINEER Dependent Habits Tobacco Use/Currently Using : Yes Tobacco Use/Advised to Quit : Yes Exposure to Tobacco Smoke : Patient smokes Smoking Status : Current every day smoker LORI PARIS - 08/04/2014 10:03 ROAD ENGINEER Tobacco Use Grid Type : Cigarettes Cigarette Use Packs/Day : 0.4 RAINA LORI Barry - 08/04/2014 10:03 ROAD ENGINEER Caffeine Use Grid Caffeine Use : Current Type : Soft drinks Frequency : Occasionally RAINA LORI Barry - 08/04/2014 10:03 ROAD ENGINEER Recreational Drug Use Grid Frequency : Occasionally RAINA LORI Barry - 08/04/2014 10:03 ROAD ENGINEER ID Screen Travel Within Last 21 Days : No RAINA LORI Barry - 08/04/2014 10:03 ROAD ENGINEER Source: [facility] Document Id: [id number] ROAD ENGINEER!44 ENGINEER documented in this encounter Plan of Treatment Not on filedocumented as of this encounter Visit Diagnoses Not on filedocumented in this encounter Additional Health Concerns Assessment Noted Time PHQ-9 Depression Total Score: 3 08/04/2014 10:15 AM CS T documented as of this encounter
--- OUTSIDE RECORDS SUMMARY | 2022-07-14 15:01 | XMS_ITS | Encounter Summary ---
:1990 Author Organization [facility] Address [address] [place] [address] Care Team Providers Name Role Phone Unavailable Primary Care Provider Unavailable Encounter Details Date Type Department Care Team Description 03/21/2014 Hospital Encounter HX [facility] FAMILYPRA Sophia Leos M.D. Social [...] Montalvo M.D. - 03/21/2014 11:13 AM CDT [id number] CHIEF COMPLAINT/REASON FOR VISIT 1. Medication review [...] their behalf by Suha Wilson, a trained director medical writing. The creation of this record is based on the scribe's personal observations and the provider's statements to them. This document has been checked and approved by the attending provider. Neha Leos M.D./klaudia Electronically Signed By: NEHA LEOS MD On: 03/21/2014 05:55 PM Source: [facility] MHSDOLBEYNONRADSYS Document Id: [id number] documented in this encounter Miscellaneous Notes Miscellaneous - Trent Mortensen R.N. - 06/26/2014 11:05 AM CDT Med Management- Adderall XR Document Contains Addenda Addendum by JOYA PHOENIX on 26 June 2014 13:48:06 CDT Routed to info desk and they will contact pt Addendum by TRENT MORTENSEN on 26 June 2014 13:32:52 CDT From: TRENT MORTENSEN ([facility]) To: ALEXANDR Mace Nurse; Sent: 06/26/2014 13:32:52 CDT Subject: FW: Med Management- Adderall XR Addendum by NEHA LEOS MD on 26 June 2014 12:36:35 CDT From: NEHA LEOS MD To: [facility]; Sent: 06/26/2014 12:36:35 CDT Subject: RE: Med Management- Adderall XR Addendum by NEHA LEOS MD on 26 June 2014 12:36:28 CDT Approved with modifications: Order:dextroamphetamine-amphetamine (Adderall XR 30 mg oral capsule, extended release) 1 cap(s) PO Daily AM ADHD Is due for follow up visit before further refills. Qty: 30 cap(s) Refills: 0 Substitutions Allowed Print - [email or web address] Signed by NEHA LEOS MD 06/26/2014 12:35:46 From: TRENT MORTENSEN ([facility]) To: NEHA LEOS MD; Sent: 06/26/2014 11:05:09 CDT Subject: Med Management- Adderall XR On hold pending signature Order:dextroamphetamine-amphetamine (Adderall XR 30 mg oral capsule, extended release) 1 cap(s) PO Daily AM ADHD Qty: 30 cap(s) Refills: 0 Substitutions Allowed Print - [email or web address] on [facility] (from [id number]) in session 24 Caller is: ( [phone] ) Patient ( ) Mother ( ) [...] Call to Pharmacy ( ) Patient will garbage pick up man Script ( ) Mail Rx to Patient Source: [facility] POWERCHART Document Id: [id number] Electronically signed by Conversion, [facility] Programmer Analyst Consultant [id number] at 02/24/2017 1:02 AM CDT Telephone Encounter - Conversion, Historical Provider Ser - 06/26/2014 10:45 AM CDT *Phone Message Document Contains Addenda Addendum by TRENT MORTENSEN on 26 June 2014 11:02:08 CDT See Med Renewal Note 06-26-14 From: JOSE ROSE ([address] Shoe Cutter) To: ALEXANDR CR[facility]manager [facility]; Sent: 06/26/2014 10:45:32 CDT Subject: [...] now a r call her back at [phone] Advice/Action: Source used: ( ) Verbalizes understanding [...] back cell phone number ( ) Source: [facility] POWERCHART Document Id: [id number] Miscellaneous - Neha Montalvo M.D. - 03/21/2014 2:28 PM CDT Ambulatory Patient Summary [facility] [address] [place] [id number] Visit Information Name: YOLANDA LEONE [facility] Number: [id number] Current Date: 03/21/2014 14:28:41 Physicians [...] appointment detail needed. Your Goals/Additional instructions: Source: [facility] POWERCHART Document Id: [id number] Miscellaneous - Neha Montalvo M.D. - 03/21/2014 2:28 PM CDT Ambulatory Discharge Medication List [facility] [address] [place] [id number] Visit Information Name: SULEMA YOLANDA JEAN PIERRE [facility] Number: [id number] Visit Date: 03/21/2014 14:28:40 Attending Provider: NEHA LEOS MD Primary Care Provider: NEHA LEOS MD SULEMAYOLANDA has been given the following list [...] MD Signed On:21-MAR-2014 14:28:37 Additional Information: Source: [facility] POWERCHART Document Id: [id number] Miscellaneous - Alem Beltran L.P.N. - 03/21/2014 11:20 AM CDT Adult Land Title Examiner Intake/History Adult Land Title Examiner Intake/History Entered On: 03/21/2014 11:24 CDT Performed [...] 03/21/2014 11:20 CDT General Info Languages : Faroese ALEM BELTRAN - 03/21/2014 11:20 CDT Subjective Pain Symptoms : No ALEM BELTRAN 03/21/2014 11:20 CDT Dependent Habits Tobacco Use/Currently [...] Occasionally ALEM BELTRAN 03/21/2014 11:20 CDT Source: [facility] [employer] Document Id: [id number] CDT!32 documented in this encounter Plan of Treatment Not on filedocumented as of this encounter Visit Diagnoses Not on filedocumented in this encounter Additional Health Concerns Assessment Noted Time PHQ-9 Depression Total Score: 7 11/04/2013 1:22 PM CASHIER OR CHECKER STOCK CLERK documented as of this encounter
--- OUTSIDE RECORDS SUMMARY | 2022-07-14 15:01 | XMS_ITS | Encounter Summary ---
:1990 Author Organization [facility] Address [address] [place] [address] Care Team Providers Name Role Phone Charissa Gilbert P.A.-C. Primary Care Provider [phone] Encounter Details Date Type Department Care Team Description 12/24/2017 Orders Only Department of Family Medicine, Tammi Dominguez [facility], in [place], [place] [address], [place] [address] [facility] [phone] Social History Tobacco Use Types Packs/Day Years [...] documented as of this encounter Care Teams Service Desk Manager Relationship Specialty Start Date End Date Charissa Gilbert P.A.-C. PCP - General 03/12/17 05/28/19 documented as of this encounter
--- OUTSIDE RECORDS SUMMARY | 2022-07-14 15:01 | XMS_ITS | Encounter Summary ---
:1990 Author Organization [facility] Address [address] [place] [address] Care Team Providers Name Role Phone Unavailable Primary Care Provider Unavailable Encounter Details Date Type Department Care Team Description 10/06/[address] [facility] Joan Grant, P.A. [address] [place] [address] Dr [place], BILL [address] (Wo rk) Social History Tobacco Use Types [...] 164 cm (5' 4.57) 10/06/2014 9:06 AM UPSETTER HELPER Body Mass Index - - documented in this encounter Miscellaneous Notes Miscellaneous - Joan Chambers - 10/09/2014 6:41 PM CST Results Notification Document Contains Addenda Addendum by JOAN CHAMBERS PA-C on 10 October 2014 08:22:57 UPSETTER HELPER From: JOAN CHAMBERS PA-C To: ALEXANDR Chambers Nurse; Sent: 10/10/2014 08:22:57 UPSETTER HELPER Show up: 10/10/2014 08:22:00 UPSETTER HELPER Subject: RE: Results Notification Spoke with Yolanda via phone this morning. She is interested in consult with General Surgery in [place], as advised by radiology, for further evaluation of her breast pain. Order is in and she will schedule. From: JOAN CHAMBERS PA-C To: ALEXANDR Chambers Nurse; JOAN CHAMBERS PA-C; Sent: 10/09/2014 18:41:28 UPSETTER HELPER ! Show up: 10/09/2014 18:41:28 UPSETTER HELPER Subject: Results Notification Actions: Notify patient of results Reminder Comments: Left VM asking patient to call back. Would like to discuss results. Results: Date Result Type Result Name 10/06/2014 10:42 Radiology US Breast Right Source: [facility] POWERCHART Document Id: [id number] Electronically signed by Conversion, [facility] Transition Program Manager [id number] at 02/22/2017 9:17 PM CDT documented in this encounter Plan of Treatment Not on filedocumented as of this encounter Procedures Procedure Name Priority Date/Time Associated Comments Diagnosis BI ULTRASOUND BREAST Routine 10/06/2014 9:15 AM R esults for this FOCUSED RIGHT UPSETTER HELPER procedure are in the results section. documented in this encounter Results BI Ultrasound Breast Focused Right (10/06/2014 9:15 AM UPSETTER HELPER) Anatomical Region Laterality Modality Breast Right Ultrasound Specimen (Source) Anatomical Collection Method Collection Time Re ceived Time Location / / Volume Laterality 10/06/2014 9:15 AM UPSETTER HELPER Impressions 10/06/2014 10:39 AM UPSETTER HELPER ??Please refer to digital diagnostic mammogram report generated October 06, 2014 for further di scussion, recommendations and BI-RADS assessment. BIRADS Narrative 10/06/2014 10:39 AM UPSETTER HELPER EXAM: ??US Breast Right AGE: ??24 years [...]
--- OUTSIDE RECORDS SUMMARY | 2022-07-14 15:01 | XMS_ITS | Encounter Summary ---
:1990 Author Organization [facility] Address [address] [place] [address] Care Team Providers Name Role Phone Elsewhere, Pcp Primary Care Provider Unavailable Reason for Visit Reason Comments Results Encounter Details Date Type Department Care Team Description 06/29/2020 Clinical Communication [facility] Tung Mcmahan , Results System-Bobby [place] M.D. [address] [facility] [phone] D[place] SCALES (Work) [address] Social History Tobacco [...] for patient to call back to the [employer] number regarding their negative COVID-19 result. Please [...] documented as of this encounter Care Teams Food Assembler Kitchen Relationship Specialty Start Date End Date Elsewhere, Pcp PCP - General 05/29/19 documented as of this encounter
--- OUTSIDE RECORDS SUMMARY | 2022-07-14 15:01 | XMS_ITS | Encounter Summary ---
:1990 Author Organization [facility] Address [address] [place] [address] Care Team Providers Name Role Phone Unavailable Primary Care Provider Unavailable Encounter Details Date Type Department Care Team Description 12/18/2015 Hospital Encounter HX [facility] Darline Ahn M.D. 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
--- OUTSIDE RECORDS SUMMARY | 2022-07-14 15:01 | XMS_ITS | Encounter Summary ---
:1990 Author Organization [facility] Address [address] [place] [address] Care Team Providers Name Role Phone Unavailable Primary Care Provider Unavailable Encounter Details Date Type Department Care Team Description 05/22/2014 Hospital Encounter HX [facility] Puneet Arias M.D. [address] [place] [address] (Wo shekhar) Social History Tobacco [...] ROSEMARY EVANS - 05/22/2014 11:19 CDT Source: [employer] Document Id: [id number] CDT!13 documented in this encounter Plan of Treatment Not on filedocumented as of this encounter Visit Diagnoses Not on filedocumented in this encounter Additional Health Concerns Assessment Noted Time PHQ-9 Depression Total Score: 7 11/04/2013 1:22 PM ORCHESTRA CONDUCTOR documented as of this encounter
--- OUTSIDE RECORDS SUMMARY | 2022-07-14 15:01 | XMS_ITS | Encounter Summary ---
:1990 Author Organization [facility] Address [address] [place] [address] Care Team Providers Name Role Phone Elsewhere, Pcp Primary Care Provider Unavailable Encounter Details Date Type Department Care Team Description 11/01/2021 Orders Only Urgent Care in [place], Stacy Pearl, APR N, [place] C.N.P., R.N. [address] [place] [address] [place] [address] [place] [address] [phone] (Wo rk) Social History Tobacco Use Types [...] documented as of this encounter Care Teams Orthodontic Assistant Relationship Specialty Start Date End Date Elsewhere, Pcp PCP - General 05/29/19 documented as of this encounter
--- OUTSIDE RECORDS SUMMARY | 2022-07-14 15:01 | XMS_ITS | Encounter Summary ---
:1990 Author Organization [facility] Address [address] [place] [address] Care Team Providers Name Role Phone Charissa Gilbert P.A.-C. Primary Care Provider [phone] Encounter Details Date Type Department Care Team Description 07/28/2017 Orders Only Department of Family Jessica Mcconnell, Medicine, [facility] in [facility] [address], [place] [id number] [place] [address] [phone] Social History Tobacco Use Types Packs/Day Years [...] documented as of this encounter Care Teams Carburizing Furnace Operator Relationship Specialty Start Date End Date Charissa Gilbert P.A.-C. PCP - General 03/12/17 05/28/19 documented as of this encounter
--- OUTSIDE RECORDS SUMMARY | 2022-07-14 15:01 | XMS_ITS | Encounter Summary ---
:[address] [facility] Address [address] [place] [address] Care Team Providers Name Role Phone Unavailable Primary Care Provider Unavailable Encounter Details Date Type Department Care Team Description 02/24/2014 Hospital Encounter HX [facility] Jason Gonzales P.AMayur -C. [address] [place] [address] (Wo rk) Social History Tobacco [...] - documented in this encounter Procedure Notes Rosemayr Evans, R.N. 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
--- OUTSIDE RECORDS SUMMARY | 2022-07-14 15:01 | XMS_ITS | Encounter Summary ---
:1990 Author Organization [facility] Address [address] [place] [address] Care Team Providers Name Role Phone Unavailable Primary Care Provider Unavailable Encounter Details Date Type Department Care Team Description 10/09/2014 Hospital Encounter HX [facility] Fiona Mcconnell, P.A. [address] [place] [address] [place] [phone] (Wo rk) Social History Tobacco Use Types [...] 164 cm (5' 4.57) 10/09/2014 2:16 PM RISK TECH Body Mass Index - - documented in this encounter Miscellaneous Notes Miscellaneous - Joan Chambers - 10/09/2014 4:08 PM CST Results Notification Document Contains Addenda Addendum by EDWARDO ROBLES LPN on 09 October 2014 16:39:43 RISK TECH LMTCB From: JOAN CHAMBERS PA-C To: ALEXANDR Chambers Nurse; Sent: 10/09/2014 16:08:16 RISK TECH ! Show up: 10/09/2014 16:08:16 RISK TECH Subject: Results Notification Actions: Notify patient of results Reminder Comments: Negative test. Results: Date Result Name Value Ref Range 10/09/2014 14:21 Beta hCG Qnt <0.50 mIU/mL ( - <=25.00) Source: [facility] POWERCHART Document Id: [id number] Electronically signed by Conversion, [facility] Account Receivable Associate [id number] at 02/22/2017 9:17 PM CDT documented in this encounter Plan of Treatment Not on filedocumented as of this encounter Procedures Procedure Name Priority Date/Time Associated Diagnosis Comme nts BHCG (BETA-HUMAN Routine 10/09/2014 2:21 PM Resul ts for this CHORIONIC RISK TECH procedure are i n GONADOTROPIN), the results ERVIN, S section. documented in this encounter Results bHCG (Beta-Human Chorionic Gonadotropin), Quantitative (10/09/2014 2:21 PM RISK TECH) P athologist Signature Beta-HCG, <0.50 <=25.00 POWERCHART Quantitative, S MIUML Specimen (Source) Anatomical Collection Method Collection Time Re ceived Time Location / / Volume Laterality Blood 10/09/2014 2:21 PM RISK TECH Joan Hodges LAB BLOOD ADD-ON Performing Organization Address City/State/ZIP Code Phon e Number POWERCHART documented in this encounter Visit Diagnoses Not on filedocumented in this encounter Additional Health Concerns Assessment Noted Time PHQ-9 Depression Total Score: 3 10/05/2014 11:20 AM CS T documented as of this encounter
--- OUTSIDE RECORDS SUMMARY | 2022-07-14 15:01 | XMS_ITS | Encounter Summary ---
:1990 Author Organization [facility] Address [address] [place] [address] Care Team Providers Name Role Phone Elsewhere, Pcp Primary Care Provider Unavailable Reason for Visit Reason Comments Abdominal Pain Encounter Details Date Type Department Care Team Description 11/07/2021 Nurse Triage Department of Family Nini Pan, Abdominal Pain Medicine, [facility] [place], R.N. in [place], [place] [address] [place], [place] [phone] Social History Tobacco Use Types Packs/Day Years Used Date Smoking Tobacco: Every Day Cigarettes 0.8 Smokeless Tobacco: Never Alcohol Use Standard Drinks/Week Comments Yes 4 (1 standard drink = 0.6 oz pure alcoho l) every other week Sex Assigned at Date Recorded Not on file documented as of this encounter Miscellaneous Notes Telephone Encounter - Nini Pan, R.N. - 11/07/2021 8:33 AM MATHEMATICS TEACHER Chief Complaint / Reason for Call Patient is a 31 y.o. female calling regarding Abdominal Pain. Assessment Concern: Patient says she was seen last Thursday and was diagnosed with a bacterial vaginal and started on metronidazole. She says she also started her period on 10/29/21 and still has some small brown bleeding. She says when she was seen last week she did have some pain in her left lower abdomen. She says since Thursday the abdominal pain has increased and is all over the abdomen now. She says it feels different than when she was seen and worse. She rates the pain 7.5/10 and says it is constant. She also says she has had some nausea. She says the pain does not feel like when she just has nausea, she says it just feels painful all over her abdomen. Present for: 6 days, worse in last 2 days Home cares tried: none Calling to request: appointment The recommended disposition is See a health care provider within 4 hours. Patient was warm transferred to [facility] at the clinic for further assistance. Care Advice Patient/Caregiver understands and will follow care advice?: Yes, able to teach back REST: * Lie down and rest. * Do this until seen. NOTHING BY MOUTH: * Do not eat or drink anything for now. Reason for Disposition ? ? [1] MILD-MODERATE pain AND [2] constant AND [3] present > 2 hours Protocols used: ABDOMINAL PAIN - [id number]-[id number] COVID-19 Nurse Line Screening ASSESSMENT Initial Screening [...] recommendation: Testing not indicated at this time Asymptomatic without exposure Carepoints: Testing is not recommended at this time. If you become symptomatic, please call back for additional screening. Education: Patient/caregiver able to teach back Patient agreeable to plan of care: Yes The following references were used: [facility] novel coronavirus (COVID- 19) resources EMATICS TEACHER documented in this encounter Plan of Treatment Not on filedocumented as of this encounter Visit Diagnoses Not on filedocumented in this encounter Additional Health Concerns Assessment Noted Time PHQ-9 Depression Total Score: 7 11/29/2015 11:32 AM CS T documented as of this encounter Care Teams Icing Mixer Relationship Specialty Start Date End Date Elsewhere, Pcp PCP - General 05/29/19 documented as of this encounter
--- OUTSIDE RECORDS SUMMARY | 2022-07-14 15:01 | XMS_ITS | Encounter Summary ---
:1990 Author Organization [facility] Address [address] [place] [address] Care Team Providers Name Role Phone Elsewhere, Pcp Primary Care Provider Unavailable Reason for Visit Reason Comments Communication Questions Encounter Details Date Type Department Care Team Description 10/17/2021 Clinical Department of Flor Mcdonald Communication Obstetrics and Yvon RKameron (Questions) Gynecology in [phone] [place], (Work) [place] [address] [place] [address] Social History Tobacco Use Types Packs/Day [...] Miscellaneous Notes Telephone Encounter - Flor Mcdonald RMayurN. - 10/17/2021 12:55 PM CST SUBJECTIVE CHIEF [...] following references were used: nursing clinical judgement. UTING CONSULTANT documented in this encounter Plan of Treatment Not on filedocumented as of this encounter Visit Diagnoses Not on filedocumented in this encounter Additional Health Concerns Assessment Noted Time PHQ-9 Depression Total Score: 7 11/29/2015 11:32 AM CS T documented as of this encounter Care Teams Tax Intern Relationship Specialty Start Date End Date Elsewhere, Pcp PCP - General 05/29/19 documented as of this encounter
--- OUTSIDE RECORDS SUMMARY | 2022-07-14 15:01 | XMS_ITS | Encounter Summary ---
:1990 Author Organization [facility] Address [address] [place] [address] Care Team Providers Name Role Phone Unavailable Primary Care Provider Unavailable Encounter Details Date Type Department Care Team Description 08/21/2014 Hospital Encounter HX [facility] OWSANJU SHOTCLELAINA Provider, Nj jaya Social History Tobacco Use Types Packs/Day Years Used Date Smoking Tobacco: Never Assessed Sex Assigned at Date Recorded Not on file documented as of this encounter Last Filed Vital Signs Vital Sign Reading Time Taken Comments Blood Pressure 102/70 08/21/2014 2:08 PM HEAD SULFIDE OPERATOR Pulse - - Temperature - - Respiratory Rate - - Oxygen Saturation - - Inhaled Oxygen Concentration - - Weight - - Height 164 cm (5' 4.57) 08/21/2014 2:08 PM HEAD SULFIDE OPERATOR Body Mass Index - - documented in this encounter Procedure Notes Liliane Mortensen RMayurNMayur - 08/21/2014 2:08 PM CST Depo-Provera Administration Depo-Provera Administration Entered On: 08/21/2014 14:09 HEAD SULFIDE OPERATOR Performed On: 08/21/2014 14:08 HEAD SULFIDE OPERATOR by LILIANE MORTENSEN Depo-Provera Administration Annual Exam in the Past 12 Months : Yes Last Depo-Provera Given : 05/22/2014 CDT Needs test : No LILIANE MORTENSEN - 08/21/2014 14:08 HEAD SULFIDE OPERATOR Vitals/Ht/Wt Systolic Blood Pressure : 102 mmHg Diastolic Blood Pressure : 70 mmHg NIBP Mean : 81 mmHg Height : 164 cm(Converted to: 5 ft 5 inch(es), 65 inch(es)) LILIANE MORTENSEN - 08/21/2014 14:08 HEAD SULFIDE OPERATOR Source: [facility] POWERCHART Document Id: [id number] HEAD SULFIDE OPERATOR!10 SULFIDE OPERATOR documented in this encounter Plan of Treatment Not on filedocumented as of this encounter Visit Diagnoses Not on filedocumented in this encounter Additional Health Concerns Assessment Noted Time PHQ-9 Depression Total Score: 3 08/04/2014 10:15 AM CS T documented as of this encounter
--- OUTSIDE RECORDS SUMMARY | 2022-07-14 15:01 | XMS_ITS | Encounter Summary ---
:1990 Author Organization [facility] Address [address] [place] [address] Care Team Providers Name Role Phone Unavailable Primary Care Provider Unavailable Encounter Details Date Type Department Care Team Description 11/06/2014 Hospital Encounter HX [facility] Puneet Arias M.D. [address] [place] [address] (Wo shekhar) Social History Tobacco Use Types Packs/Day Years Used Date Smoking Tobacco: Never Assessed Sex Assigned at Date Recorded Not on file documented as of this encounter Last Filed Vital Signs Vital Sign Reading Time Taken Comments Blood Pressure 100/68 11/06/2014 2:56 PM IT TECHNICAL SPECIALIST Pulse - - Temperature - - Respiratory Rate - - Oxygen Saturation - - Inhaled Oxygen Concentration - - Weight - - Height 164 cm (5' 4.57) 11/06/2014 2:56 PM IT TECHNICAL SPECIALIST Body Mass Index - - documented in this encounter Procedure Notes Johan Clement, LMayurP.N. - 11/06/2014 2:56 PM CST Depo-Provera Administration Depo-Provera Administration Entered On: 11/06/2014 14:56 IT TECHNICAL SPECIALIST Performed On: 11/06/2014 14:56 IT TECHNICAL SPECIALIST by JOHAN CLEMENT Depo-Provera Administration Annual Exam in the Past 12 Months : Yes Last Depo-Provera Given : 08/21/2014 IT TECHNICAL SPECIALIST Return appointment : 01/22/2015 CDT Needs test : No JOHAN CLEMENT - 11/06/2014 14:56 IT TECHNICAL SPECIALIST Vitals/Ht/Wt Systolic Blood Pressure : 100 mmHg Diastolic Blood Pressure : 68 mmHg NIBP Mean : 79 mmHg Height : 164 cm(Converted to: 5 ft 5 inch(es), 65 inch(es)) JOHAN CLEMENT - 11/06/2014 14:56 IT TECHNICAL SPECIALIST Source: [facility] [employer] Document Id: [id number] IT TECHNICAL SPECIALIST!11 TECHNICAL SPECIALIST documented in this encounter Plan of Treatment Not on filedocumented as of this encounter Visit Diagnoses Not on filedocumented in this encounter Additional Health Concerns Assessment Noted Time PHQ-9 Depression Total Score: 3 10/05/2014 11:20 AM CS T documented as of this encounter
--- OUTSIDE RECORDS SUMMARY | 2022-07-14 15:01 | XMS_ITS | Encounter Summary ---
:1990 Author Organization [facility] Address [address] [place] [address] Care Team Providers Name Role Phone Unavailable Primary Care Provider Unavailable Encounter Details Date Type Department Care Team Description 02/05/2015 Hospital Encounter [facility] Ada Roberson M.D. [address] [place] [address] (Wo rk) Social History Tobacco [...] Roberson M.D. - 02/05/2015 9:33 AM CDT [id number] CHIEF COMPLAINT Sunburn. HISTORY OF PRESENT ILLNESS [...] ROBERSON MD On: 02/06/2015 08:32 AM Source: [facility] MHSDOLBEYNONRADSYS Document Id: [id number] documented in this encounter Miscellaneous Notes Miscellaneous [...] ROBERSON MD - 02/08/2015 11:56 CDT Source: [facility] POWERCHART Document Id: [id number] CDT!5 Telephone Encounter - Conversion, Historical Provider [...] something for pain. Silver joshi. From: JOSE ROSE (OW 2 [facility] Fmd Teacher) To: ALEXANDR Nazario Nurse; Sent: 02/08/2015 09:08:06 [...] slip a r call her back at [phone] Advice/Action: Source used: ( ) Verbalizes understanding [...] back cell phone number ( ) Source: [facility] POWERCHART Document Id: [id number] Miscellaneous - Araceli Roberson M.D. - 02/05/2015 10:03 AM CDT Ambulatory Patient Summary [address] [id number] Visit Information Name: YOLANDA LEONE [facility] Number: [id number] Current Date: 02/05/2015 10:03:47 Physicians [...] day x 5 day(s) New Routed to [facility] [address] [address] Stop Taking the Following Medications: acetaminophen/dextromethorphan/PSE (DayQuil) [...] Appointments Date Time Location Provider 04/05/2015 08:30 [facility] Mammo [facility] Room 2 04/05/2015 09:00 [facility] Ultrasound [facility] Room 1 Attention: Contact your local Clinic if further appointment detail needed. Your Goals/Additional instructions: Source: [facility] POWERCHART Document Id: [id number] Miscellaneous - Araceli Roberson M.D. - 02/05/2015 10:03 AM CDT Ambulatory Discharge Medication List [facility] [address] [place] [id number] Visit Information Name: YOLANDA LEONE [facility] Number: [id number] Visit Date: 02/05/2015 10:03:46 Attending Provider: ARACELI ROBERSON MD Primary Care Provider: JOAN CHAMBERS PA-C SULEMA YOLANDA [place] has been [...] day x 5 day(s) New Routed to [facility] [address] [address] Stop Taking the Following Medications: acetaminophen/dextromethorphan/PSE (DayQuil) [...] MD Signed On:05-FEB-2015 10:03:43 Additional Information: Source: [facility] POWERCHART Document Id: [id number] Miscellaneous - Araceli Roberson M.D. - 02/05/2015 [...] ROBERSON MD - 02/05/2015 10:01 CDT Source: [facility] POWERCHART Document Id: [id number] CDT!8 Miscellaneous - Christopher Saldana L.P.N. - 02/05/2015 9:40 AM CDT Adult Confectionery Maker Intake/History Adult Confectionery Maker Intake/History Entered On: 02/05/2015 9:43 CDT Performed On: 02/05/2015 9:40 CDT by CHRISTOPHER SALDANA LINUX NETWORK ADMINISTRATOR Intake Chief Complaint : sunburn with blistering [...] Preferred Communication Mode : Verbal Languages : Surinamese Is Patient Female and 13-50 no hysterectomy [...] : Current every day smoker CHRISTOPHER SALDANA [facility] [place] [address] - 02/05/2015 9:40 CDT Tobacco Use Grid Type : Cigarettes Cigarette Use Packs/Day : 0.4 CHRISTOPHER SALDANA [facility] [place] [address] - 02/05/2015 9:40 CDT Caffeine Use Grid Caffeine Use : Current Type : Soft drinks Frequency : Occasionally CHRISTOPHER SALDANA [facility] [place] [address] - 02/05/2015 9:40 CDT Recreational Drug Use Grid Frequency : Occasionally CHRISTOPHER SALDANA [facility] [place] [address] - 02/05/2015 9:40 CDT ID Screen Drug Resistant Organism : No Travel Within Last 21 Days : No Contact with someone with Ebola : No CHRISTOPHER SALDANA [facility] [place] [address] - 02/05/2015 9:40 CDT Source: [employer] Document Id: [id number] CDT!48 documented in this encounter Plan of Treatment Not on filedocumented as of this encounter Visit Diagnoses Not on filedocumented in this encounter Additional Health Concerns Assessment Noted Time PHQ-9 Depression Total Score: 3 10/05/2014 11:20 AM CS T documented as of this encounter
--- OUTSIDE RECORDS SUMMARY | 2022-07-14 15:01 | XMS_ITS | Encounter Summary ---
:1990 Author Organization [facility] Address [address] [place] [address] Care Team Providers Name Role Phone Elsewhere, Pcp Primary Care Provider Unavailable Reason for Visit Reason Comments Vaginal Discharge Abdominal Pain COVID Nurse Line Encounter Details Date Type Department Care Team Description 11/01/2021 Nurse Triage Department of Family Emily Gonzalez Vag inal Discharge; Medicine, Moustapha Pacheco R.N. Abdominal Pain; COVID Clinic, in [place] [address] [address] [facility] Nurse [place], [place] [address] [place] [address] [place] [address] [phone] Social History Tobacco Use Types Packs/Day Years Used Date Smoking Tobacco: Every Day Cigarettes 0.8 Smokeless Tobacco: Never Alcohol Use Standard Drinks/Week Comments Yes 4 (1 standard drink = 0.6 oz pure alcoho l) every other week Sex Assigned at Date Recorded Not on file documented as of this encounter Miscellaneous Notes Telephone Encounter - Emily Gonzalez RKameron - 11/01/2021 9:43 AM ANIMAL TREATMENT INVESTIGATOR COVID-19 Nurse Line Screening ASSESSMENT Initial Screening [...] frequently with soap and water, use hand nursing assistant if soap and water aren't available. -Wear [...] care: Yes The following references were used: [facility] novel coronavirus (COVID- 19) resources AL TREATMENT INVESTIGATOR Telephone Encounter - Emily Gonzalez R.N. - 11/01/2021 9:33 AM ANIMAL TREATMENT INVESTIGATOR Chief Complaint / Reason for Call Patient [...] 4 hours. Patient was warm transferred to [place] at the clinic for further assistance. Care Advice Patient/Caregiver understands and will follow care advice?: Yes, able to teach back SEE PCP WITHIN 24 HOURS: * IF OFFICE WILL BE OPEN: You need to be examined within the next 24 hours. Call your doctor (or CASE MANAGER/PA) when the office opens and make an [...] You can buy a test at the [employer]. * It works best if you test [...] present > 2 hours Protocols used: VAGINAL [id number] AL TREATMENT INVESTIGATOR documented in this encounter Plan of Treatment Not on filedocumented as of this encounter Visit Diagnoses Not on filedocumented in this encounter Additional Health Concerns Assessment Noted Time PHQ-9 Depression Total Score: 7 11/29/2015 11:32 AM CS T documented as of this encounter Care Teams Informatics Physician Liaison Relationship Specialty Start Date End Date Elsewhere, Pcp PCP - General 05/29/19 documented as of this encounter
--- OUTSIDE RECORDS SUMMARY | 2022-07-14 15:01 | XMS_ITS | Encounter Summary ---
:1990 Author Organization [facility] Address [address] [place] [address] Care Team Providers Name Role Phone Elsewhere, Pcp Primary Care Provider Unavailable Encounter Details Date Type Department Care Team Description 11/01/2021 Hospital Encounter Department of Stacy [facility] Laboratory Medicine L, SECTION MAINTAINER, Periumbi lical in [place], [place] C.N.P., R.N. [address] [place] [address] [place] [address] [place], [place] [phone] Social History Tobacco Use Types Packs/Day [...] ts for this AEROBIC + SUSC, PM ACCOUNTS RECEIVABLE COORDINATOR Periumbilical procedure a re in URINE the results section. URINALYSIS WITH Routine 11/01/2021 12:56 Tenderness Results for this MICROSCOPIC PM ACCOUNTS RECEIVABLE COORDINATOR Periumbilical procedure are in the results section. documented in this encounter Results (ABNORMAL) Bacterial Culture, Aerobic + Susc, Urine (11/01/2021 12:56 PM ACCOUNTS RECEIVABLE COORDINATOR) Analysis Performed At [facility] Urine Culture Mixed 11/02/2021 [facility] mary beth. (A) 12:18 PM ACCOUNTS RECEIVABLE COORDINATOR Specimen Anatomical Collection Method Collection Time Receive d Time (Source) Location / / Volume Laterality Urine (Urine, 11/01/2021 12:56 11/01/2021 5:43 Midstream) PM ACCOUNTS RECEIVABLE COORDINATOR PM ACCOUNTS RECEIVABLE COORDINATOR Comment: Specimen Source Site: Urine Stacy Pearl APRN, C.N.P., R.N. LAB MICROBIOLOGY - GEN ERAL ORDERABLES Performing Organization Address City/State/ZIP Code Phon e Number [facility]- [address] [place] [id number] [place] [address] [place] [address] [address] (ABNORMAL) Urinalysis with Microscopic: Urine, Midstream (11/01/2021 12:56 PM ACCOUNTS RECEIVABLE COORDINATOR) Analysis Performed At [facility] Source Urine, Urine, 11/01/2021 [facility] Midstream 1:06 PM ACCOUNTS RECEIVABLE COORDINATOR Clarity Clear Clear 11/01/2021 [facility] 1:06 PM ACCOUNTS RECEIVABLE COORDINATOR Color Yellow 11/01/2021 [facility] 1:06 PM ACCOUNTS RECEIVABLE COORDINATOR Comment: ----REFERENCE VALUE---- Colorless Yellow Corinne Blood Moderate (A) Negative 11/01/2021 1:06 PM ACCOUNTS RECEIVABLE COORDINATOR [facility] Nitrite Negative Negative 11/01/2021 1:06 PM ACCOUNTS RECEIVABLE COORDINATOR [facility] Leukocyte Esterase Trace (A) Negative 11/01/2021 1:06 PM CS T [facility] Protein Negative mg/dL 11/01/2021 1:06 PM ACCOUNTS RECEIVABLE COORDINATOR [facility] Comment: ----REFERENCE VALUE---- Negative Trace Glucose Negative Negative mg/dL 11/01/2021 1:06 PM ACCOUNTS RECEIVABLE COORDINATOR AU ST Ketone Negative Negative mg/dL 11/01/2021 1:06 PM ACCOUNTS RECEIVABLE COORDINATOR AU ST Bilirubin Negative Negative 11/01/2021 1:06 PM ACCOUNTS RECEIVABLE COORDINATOR [facility] pH 5.0 5.0 - 8.0 11/01/2021 1:06 PM ACCOUNTS RECEIVABLE COORDINATOR [facility] Specific [place]am 1.023 1.001 - 1.035 11/01/2021 1:06 PM ACCOUNTS RECEIVABLE COORDINATOR [facility] Urobilinogen 0.2 0.2 - 1.0 mg/dL 11/01/2021 1:06 PM CS T [facility] White Blood Cells Occ-3 /hpf 11/01/2021 1:09 PM ACCOUNTS RECEIVABLE COORDINATOR [facility] Comment: ----REFERENCE VALUE---- Males: 0-3 Females: 0-10 Unknown: 0-10 Red Blood Cells Occ-2 0 - 2 /hpf 11/01/2021 1:09 PM ACCOUNTS RECEIVABLE COORDINATOR [facility] Hyaline Casts 1-3 /lpf 11/01/2021 1:09 PM ACCOUNTS RECEIVABLE COORDINATOR AUS T Squamous Cells Occ-3 /hpf 11/01/2021 1:09 PM ACCOUNTS RECEIVABLE COORDINATOR AU ST Specimen Anatomical Collection Method Collection Time Receive d Time (Source) Location / / Volume Laterality Urine (Urine, 11/01/2021 12:56 11/01/2021 1:00 Midstream) PM ACCOUNTS RECEIVABLE COORDINATOR PM ACCOUNTS RECEIVABLE COORDINATOR Stacy Pearl APRN, C.N.P., R.N. LAB URINE ORDERABLES Performing Organization Address City/State/ZIP Code Phon e Number [facility]- [address] [place] [address] [facility] [place], [place] [id number] [place] [address] documented in this encounter Visit Diagnoses Diagnosis Tenderness Periumbilical documented in this encounter Additional Health Concerns Assessment Noted Time PHQ-9 Depression Total Score: 7 11/29/2015 11:32 AM CS T documented as of this encounter Care Teams Green End Man Relationship Specialty Start Date End Date Elsewhere, Pcp PCP - General 05/29/19 documented as of this encounter
--- OUTSIDE RECORDS SUMMARY | 2022-07-14 15:01 | XMS_ITS | Encounter Summary ---
:1990 Author Organization [facility] Address [address] [place] [address] Care Team Providers Name Role Phone Unavailable Primary Care Provider Unavailable Encounter Details Date Type Department Care Team Description 01/23/2015 Hospital Encounter HX [facility] Darline Ahn M.D. 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 Needs test : No Depo-Provera Administration Comments [...] SHAZIA MELENDEZ - 01/23/2015 14:16 CDT Source: [facility] [employer] Document Id: [id number] CDT!12 documented in this encounter Miscellaneous Notes Miscellaneous - Shazia Melendez RKameron - 01/23/2015 1:57 PM CDT Depo Provera [...] Allowed Print - [id number] on [employer] (from [id number]) in session 260 Caller is: ( ) Patient ( ) Mother ( ) Father ( ) Spouse ( ) Daughter ( ) Son ( ) Pharmacy ( ) Other: Provider: Joan Chambers Pharmacy: Will receive in [facility] Name of Medications Needing Refill:Depo provera Last Refill Date:12/09/13 Additional Information:Patient here in [facility] to receive Depo provera. Can we have just a one time order? She needs to be seen for her annual exam I believe. Intial prescription written by Neha Leos. 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
--- OUTSIDE RECORDS SUMMARY | 2022-07-14 15:01 | XMS_ITS | Encounter Summary ---
:1990 Author Organization [facility] Address [address] [place] [address] Care Team Providers Name Role Phone Unavailable Primary Care Provider Unavailable Encounter Details Date Type Department Care Team Description 08/15/2014 Hospital Encounter [facility]X [facility] Puneet Walters M.D. [address] [place] [phone] (Wo shekhar) Social History Tobacco Use Types Packs/Day Years Used Date Smoking Tobacco: Never Assessed Sex Assigned at Date Recorded Not on file documented as of this encounter Last Filed Vital Signs Vital Sign Reading Time Taken Comments Blood Pressure 120/72 08/15/2014 1:11 PM [facility] Pulse 100 08/15/2014 1:11 PM [facility] Temperature - - Respiratory Rate 20 08/15/2014 1:11 PM [facility] [employer] Oxygen Saturation - - Inhaled Oxygen Concentration - - Weight 94 kg (207 lb 3.7 oz) 08/15/2014 1:11 PM [facility] Height 164 cm (5' 4.57) 08/15/2014 1:04 PM [facility] Body Mass Index 34.95 08/15/2014 1:04 PM [facility] [employer] documented in this encounter Progress Notes Arturo Walters M.D. - 08/15/2014 1:04 PM CST [id number] Patient presents with a sore throat and [...] WALTERS MD On: 08/15/2014 04:09 PM Source: [facility] [employer]OLBEYNONRADSYS Document Id: [id number] HER [employer] documented in this encounter Procedure Notes Mila Albert L.PMayurN. - 08/15/2014 1:24 PM CST Rapid Strep A Screen POC Rapid Strep A Screen POC Entered On: 08/15/2014 13:24 [facility] Performed On: 08/15/2014 13:24 [facility] [employer] by MILA ALBERT Rapid Strep A Screen POC Rapid Strep A Screen POC : Negative Internal Positive QC : Pass MILA ALBERT - 08/15/2014 13:24 [employer] [employer] Source: [facility] POWERCHART Document Id: [id number] WE[employer]ER [employer]!4 HER [employer] documented in this encounter Miscellaneous Notes Miscellaneous - Arturo Walters M.D. - 08/15/2014 1:29 PM CST Work Excuse 15 August 2014 YOLANDA LEONE [address] [facility] [id number] Dear YOLANDA LEONE, Release from work Thursday and Thursday due to illness Sincerely, ARTURO WALTERS [address] [place] [id number] Electronic Signature Electronically Signed By: ARTURO WALTERS MD On: 15 August 2014 This document has images extracted. Source: [facility] POWERCHART Document Id: [id number] Electronically signed by Conversion, [facility] Industrial Relations Representative [id number] at 02/24/2017 5:49 AM CDT Miscellaneous - Arturo Walters M.D. - 08/15/2014 1:26 PM CST Ambulatory Patient Summary [facility] [address] [place] [phone] Visit Information Name: YOLANDA LEONE [facility] Number: [id number] Current Date: 08/15/2014 13:26:12 Physicians [...] appointment detail needed. Your Goals/Additional instructions: Source: [facility] POWERCHART Document Id: [id number] [facility] [employer] Miscellaneous - Arturo Walters M.D. - 08/15/2014 1:26 PM CST Ambulatory Discharge Medication List [address] [phone] Visit Information Name: YOLANDA LEONE [facility] Number: [id number] Visit Date: 08/15/2014 13:26:11 Attending [...] MD Signed On:15-AUG-2014 13:26:09 Additional Information: Source: [facility] POWERCHART Document Id: [id number] [facility] [employer] Miscellaneous - Mila Albert L.P.N. - 08/15/2014 1:11 PM CST Adult Guest Relation Officer Intake/History Adult Guest Relation Officer Intake/History Entered On: 08/15/2014 13:13 [facility] [employer] Performed On: 08/15/2014 13:11 [facility] [employer] by MILA ALBERT Intake Chief Complaint : [...] 94 kg MILA ALBERT - 08/15/2014 13:11 [facility] [employer] General Info Information Given By : Patient Preferred Communication Mode : Verbal Languages : German Is Patient Female and 13-50 no hysterectomy : Yes Status : Patient denies Are you ? : No MILA ALBERT 08/15/2014 13:11 [facility] [employer] Subjective Pain Symptoms : No MILA ALBERT 08/15/2014 13:11 [employer] [employer] Dependent Habits Tobacco Use/Currently Using : Yes Exposure to Tobacco Smoke : Patient smokes Smoking Status : Current every day smoker MILA ALBERT 08/15/2014 13:11 [employer] [employer] Tobacco Use Grid Type : Cigarettes Cigarette Use Packs/Day : 0.4 MILA ALBERT R - 08/15/2014 13:11 [facility] [employer] Caffeine Use Grid Caffeine Use : Current Type : Soft drinks Frequency : Occasionally MILA ALBERT R - 08/15/2014 13:11 [facility] [employer] Recreational Drug Use Grid Frequency : Occasionally MILA ALBERT R - 08/15/2014 13:11 [facility] [employer] ID Screen Travel Within Last 21 Days : No MILA ALBERT - 08/15/2014 13:11 [facility]ATH[facility] [employer] Source: [facility] [employer] Document Id: [id number] WEATHER [employer]ECASTER!41 HER [employer] documented in this encounter Plan of Treatment Not on filedocumented as of this encounter Procedures Procedure Name Priority Date/Time Associated Diagnosis Comme nts RAPID STREP A Routine 08/15/2014 4:24 PM Results for this SCREEN [facility] procedure are i n the results section. documented in this encounter Results Rapid Strep A Screen (08/15/2014 4:24 PM WE[facility]ECA[facility]) [facility] gist Method Time Signature HXRapid Strep POWERCHART Confirmation HXFinal Negative for POWERCHART Group A Strep by culture. Specimen (Source) Anatomical Collection Method Collection Time Re ceived Time Location / / Volume Laterality Throat 08/15/2014 4:24 PM [facility] Historical Provider LAB MICROBIOLOGY - GENERAL O RDERABLES Performing Organization Address City/State/ZIP Code Phon e Number POWERCHART documented in this encounter Visit Diagnoses Not on filedocumented in this encounter Additional Health Concerns Assessment Noted Time PHQ-9 Depression Total Score: 3 08/04/2014 10:15 AM CS T documented as of this encounter
--- OUTSIDE RECORDS SUMMARY | 2022-07-14 15:01 | XMS_ITS | Encounter Summary ---
:1990 Author Organization [facility] Address [address] [place] [address] Care Team Providers Name Role Phone Unavailable Primary Care Provider Unavailable Encounter Details Date Type Department Care Team Description 11/29/2015 Hospital Encounter [facility] Nancy Mcconnell, P.A. [address] [place] [address] BILL Dominguez [id number] (Wo rk) Social History Tobacco Use Types Packs/Day Years Used Date Smoking Tobacco: Never Assessed Sex Assigned at Date Recorded Not on file documented as of this encounter Last Filed Vital Signs Vital Sign Reading Time Taken Comments Blood Pressure 112/70 11/29/2015 11:30 AM SOCIAL SCIENCES LECTURER Pulse 76 11/29/2015 11:30 AM SOCIAL SCIENCES LECTURER Temperature - - Respiratory Rate 17 11/29/2015 11:30 AM SOCIAL SCIENCES LECTURER Oxygen Saturation - - Inhaled Oxygen Concentration - - Weight 96.5 kg (212 lb 11.9 oz) 11/29/2015 11:30 AM SOCIAL SCIENCES LECTURER Height 164 cm (5' 4.57) 11/29/2015 11:30 AM SOCIAL SCIENCES LECTURER Body Mass Index 35.88 11/29/2015 11:30 AM SOCIAL SCIENCES LECTURER documented in this encounter Progress Notes Nancy Bernard L - 11/29/2015 11:20 AM CST [id number] CHIEF COMPLAINT/REASON FOR VISIT Medication review. HISTORY [...] at work. 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 She states that if she does not [...] actually had a full physical at the [facility] in July of 2015. At that time, her Depo-Provera was refilled for the year; however, she would now like to return to the [facility] for her care. Therefore, she is [...] ct, did undergo bone density testing in [place] in 2012. She denies any family history [...] HISTORY Yolanda is single. She lives in [place]. 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 Alcohol use includes 3 to 4 drinks [...] we may obtain her previous records from [facility]. 3. TSH today is pending. CBC [...] BERNARD PA-C On: 12/11/2015 06:05 PM Source: [facility] MHSDOLBEYNONRADSYS Document Id: [id number] documented in this encounter Miscellaneous Notes Telephone [...] 2015 17:25:26 CDT From: EDWARDO ROBLES LPN ([facility] Med 1 Nurse) To: NANCY BERNARD PA-C; Sent: 12/19/2015 17:25:26 CDT Subject: FW: *Phone Message/ Marco Antonio Patient lost all three copies, but only needs the December copy. Please advise. Addendum by NANCY BERNARD PA-C on December 18, 2015 23:20:30 CDT From: NANCY BERNARD PA-C To: [facility] 1 Nurse; Sent: 12/18/2015 23:20:30 CDT Subject: RE: *Phone Message/ Marco Antonio Which months's prescriptions is she needing replaced? I had given her scripts for November, December and January. Did she lose all three paper prescriptions? Addendum by YESSICA LONG LPN on December 18, 2015 13:30:23 CDT From: YESSICA LONG LPN ([facility] 1 Nurse) To: NANCY BERNARD PA-C; Sent: 12/18/2015 13:30:23 CDT Subject: FW: *Phone Message/ Marco Antonio Addendum by YESSICA LONG LPN on December 18, 2015 13:30:14 CDT phone call returned to patient who reports that she usually turns all refills in at once to [facility] pharmacy however she they dont have them and she is unable to find them / please advise From: PAULIE GIBBS ([address] [employer]) To: [facility] 1 Nurse; Sent: 12/18/2015 11:44:57 CDT Subject: *Phone Message/ Marco Antonio Caller is: ( x ) Patient ( ) Mother ( ) Father ( ) Spouse ( ) Daughter ( ) Son ( ) Pharmacy ( ) Other: Physician: Patient MRN #: Reason for Call: Message: Yolanda would like a call. She lost her prescriptions. Wondering what to do next. Please call [phone] Advice/Action: Source used: ( ) Verbalizes understanding [...] back cell phone number ( ) Source: [facility] POWERMyBuilder Document Id: [id number] Miscellaneous - Nancy Bernard - 11/29/2015 2:21 PM CST Normal Results Letter 29 November 2015 YOLANDA READ [address] [facility] [address] Dear YOLANDA READ, I am pleased to [...] 11/29/2015 150 - 450 Sincerely, NANCY BERNARD [address] [place] [id number] Electronic Signature Electronically Signed By: NANCY BERNARD PA-C On: 29 November 2015 This document has images extracted. Source: [facility] POWERCHART Document Id: [id number] Electronically signed by Halle [facility] Driver Wheelchair [id number] at 02/21/2017 4:47 PM CDT Miscellaneous - Nancy Bernard - 11/29/2015 12:37 PM CST Ambulatory Patient Summary [address] [id number] Visit Information Name: YOLANDA LEONE [facility] Number: [id number] Current Date: 11/29/2015 12:37:23 Physicians Attending Provider: NANCY BERNARD PA-C Primary Care Provider: NANCY BERNARD PA-C SULEMA YOLANDA GREENFIELD has been given [...] 11/29/2015 This is a CHANGE Routed to [employer] medroxyPROGESTERone (Depo-Provera Contraceptive 150 mg/mL intramuscular suspension) 1 Milliliter, Intramuscular, once Recurring order to on 11/28/2016. Last shot: 09/27/2016 Window: 12/14/2015 - 12/28/2015 Routed to [facility] [employer] [place] [id number] Stop Taking the Following Medications: Medication list [...] if you dont have one. Go to [email or web address] and click on Create Your Account. Then, follow the directions to complete the online form. Youll be asked for your [facility] number which you can find at the top of this document. Your Goals/Additional instructions: Source: [facility] POWERCHART Document Id: [id number] AL SCIENCES LECTURER Miscellaneous - Nancy Bernard - 11/29/2015 12:37 PM CST Ambulatory Discharge Medication List [facility] [address] [place] Schumacher [id number] Visit Information Name: YOLANDA LEONE [facility] Number: [id number] Visit Date: 11/29/2015 12:37:22 Attending Provider: NANCY BERNARD PA-C Primary Care Provider: NANCY BERNARD PA-C YOLANDA LEONE has been given the [...] 11/29/2015 This is a CHANGE Routed to [employer] medroxyPROGESTERone (Depo-Provera Contraceptive 150 mg/mL intramuscular suspension) 1 Milliliter, Intramuscular, once Recurring order to on 11/28/2016. Last shot: 09/27/2016 Window: 12/14/2015 - 12/28/2015 Routed to [facility] Blanca HooperDORI [place] [address] Stop Taking the Following Medications: Medication list [...] Signed By: Signed On: Additional Information: Source: [facility] POWERCHART Document Id: [id number] AL SCIENCES LECTURER Miscellaneous - Lelo Peralta, L.P.N. - 11/29/2015 11:32 AM CST PHQ-9 PHQ-9 Entered On: 11/29/2015 11:34 SOCIAL SCIENCES LECTURER Performed On: 11/29/2015 11:32 SOCIAL SCIENCES LECTURER by LELO PERALAT LPN PHQ-9 Little interest or pleasure in [...] difficult LELO PERALTA LPN - 11/29/2015 11:32 SOCIAL SCIENCES LECTURER Source: [facility] Document Id: [id number] SOCIAL SCIENCES LECTURER!13 AL SCIENCES LECTURER Marycellwilbur - Lelo Peralta, L.P.N. - 11/29/2015 11:30 AM CST Adult Form Tamper Intake/History Adult Form Tamper Intake/History Entered On: 11/29/2015 11:32 SOCIAL SCIENCES LECTURER Performed On: 11/29/2015 11:30 SOCIAL SCIENCES LECTURER by LELO PERALTA LPN Intake Chief Complaint [...] kg/m2 LELO PERALTA LPN - 11/29/2015 11:30 SOCIAL SCIENCES LECTURER General Info Information Given By : Patient Preferred Communication Mode : Verbal Languages : Martiniquais Is Patient Female and 13-50 no hysterectomy : Yes Status : Patient denies Are you ? : No LELO PERALTA LPN - 11/29/2015 11:30 SOCIAL SCIENCES LECTURER Subjective Pain Symptoms : Yes LELO PERALTA LPN - 11/29/2015 11:30 SOCIAL SCIENCES LECTURER Pain Scale Pain Scale Verbal 0-10 : Open LELO PERALTA LPN - 11/29/2015 11:30 SOCIAL SCIENCES LECTURER Pain Pain Assessment Grid Pain 1 Pain 2 Location : Upper back Lower back Intensity : 6 6 LELO PERALTA LPN - 11/29/2015 11:30 SOCIAL SCIENCES LECTURER LELO PERALTA LPN - 11/29/2015 11:30 SOCIAL SCIENCES LECTURER Dependent Habits Smoking Status : Former smoker Tobacco 2A : No Tobacco Use/Currently Using : No Tobacco Use/Last 30 Days : No Tobacco Use/Last 12 months : No LELO PERALTA LPN - 11/29/2015 11:30 SOCIAL SCIENCES LECTURER Caffeine Use Grid Caffeine Use : Current Type : Soft drinks Frequency : Occasionally LELO PERALTA LPN - 11/29/2015 11:30 SOCIAL SCIENCES LECTURER Recreational Drug Use Grid Frequency : Occasionally LELO PERALTA LPN - 11/29/2015 11:30 SOCIAL SCIENCES LECTURER Source: [facility] POWERCHART Document Id: [id number] SOCIAL SCIENCES LECTURER!50 AL SCIENCES LECTURER Miscellaneous - Lelo Peralta, L.P.N. - 11/29/2015 11:29 AM CST Health Assessment Health Assessment Entered On: 11/29/2015 11:30 SOCIAL SCIENCES LECTURER Performed On: 11/29/2015 11:29 SOCIAL SCIENCES LECTURER by LELO PERLATA LPN Health Assessment Complete Health Assessment Complete or Modified : Annual Health Assessment Annual Health Assessment Completed : Yes LELO PERALTA LPN - 11/29/2015 11:29 SOCIAL SCIENCES LECTURER Nutrition Nutrition Risk Factors by History Adult : None LELO PERALTA LPN - 11/29/2015 11:29 SOCIAL SCIENCES LECTURER Functional Current Daily Living Assistance : None LELO PERALTA LPN - 11/29/2015 11:29 SOCIAL SCIENCES LECTURER Dependent Habits Smoking Status : Former smoker Tobacco 2A : No Tobacco Use/Currently Using : No Tobacco Use/Last 30 Days : No Tobacco Use/Last 12 months : No LELO PERALTA LPN - 11/29/2015 11:29 SOCIAL SCIENCES LECTURER Caffeine Use Grid Caffeine Use : Current Type : Soft drinks Frequency : Occasionally LELO PERALTA [facility] - 11/29/2015 11:29 SOCIAL SCIENCES LECTURER Alcohol Use : Yes LELO PERALTA STAKING ENGINEER - 11/29/2015 11:29 SOCIAL SCIENCES LECTURER Recreational Drug Use Grid Frequency : Occasionally LELO PERALTA LPN - 11/29/2015 11:29 SOCIAL SCIENCES LECTURER AUDIT Tool How Often Do You Have A Drink : Monthly or less How Many Drinks in a Day When Drinking : 3 or 4 Six or More Drinks On One Occassion : Never Audit Phase 1 Score : [address] [facility] - 11/29/2015 11:29 SOCIAL SCIENCES LECTURER Psychosocial Domestic Abuse Concerns : None Behavioral Health Screen/Safety Assmt : No Temple Preference : LELO Wilder STAKING ENGINEER - 11/29/2015 11:29 SOCIAL SCIENCES LECTURER Advance Directive Advanced Directives : No Advance Directive Additional Information : No LELO PERALTA STAKING ENGINEER - 11/29/2015 11:29 SOCIAL SCIENCES LECTURER Educ Needs Learning Style Preference Adult Grid Patient : None Family : None LELO PERALTA LPN - 11/29/2015 11:29 SOCIAL SCIENCES LECTURER Source: [facility] POWERCHART Document Id: [id number] SOCIAL SCIENCES LECTURER!39 AL SCIENCES LECTURER documented in this encounter Plan of Treatment Not on filedocumented as of this encounter Procedures Procedure Name Priority Date/Time Associated Diagnosis Comme nts LIPID PANEL, S Routine 11/29/2015 12:50 PM Result s for this SOCIAL SCIENCES LECTURER procedure are i n the results section. CBC WITHOUT Routine 11/29/2015 12:50 PM Results for this DIFFERENTIAL, B SOCIAL SCIENCES LECTURER procedure ar e in the results section. THYROID-STIMULATING Routine 11/29/2015 12:50 PM R esults for this HORMONE-SENSITIVE SOCIAL SCIENCES LECTURER procedure are in (S-TSH) the results section. GLUCOSE, FASTING, Routine 11/29/2015 12:50 PM Res ults for this S/P SOCIAL SCIENCES LECTURER procedure are i n the results section. documented in this encounter Results CBC without Differential (11/29/2015 12:50 PM SOCIAL SCIENCES LECTURER) athologist Signature Leukocytes 8.1 3.4 - 10.5 POWERCHART X109L Erythrocytes 4.97 3.90 - 5.03 POWERCHART F8901I Hemoglobin 14.4 12.0 - 15.5 POWERCHART GDL Hematocrit 44.2 34.9 - 44.5 POWERCHART MCV 88.9 82.0 - 98.0 POWERCHART FL HX RDW 12.8 11.9 - 15.5 POWERCHART Platelet Count 268 150 - 450 POWERCHART X109L Specimen (Source) Anatomical Collection Method Collection Time Re ceived Time Location / / Volume Laterality Blood 11/29/2015 12:50 PM SOCIAL SCIENCES LECTURER Nancy Mcconnell P.A. LAB BLOOD ADD-ON Performing Organization Address City/State/ZIP Code Phon e Number POWERCHART Glucose, Fasting (11/29/2015 12:50 PM SOCIAL SCIENCES LECTURER) athologist Signature Glucose, 90 70 - 99 POWERCHART Fasting, S MGDL Specimen (Source) Anatomical Collection Method Collection Time Re ceived Time Location / / Volume Laterality Blood 11/29/2015 12:50 PM SOCIAL SCIENCES LECTURER Nancy Mcconnell P.A. LAB BLOOD NON ADD-ON Performing Organization Address City/State/ZIP Code Phon e Number POWERCHART (ABNORMAL) Lipid Panel (11/29/2015 12:50 PM SOCIAL SCIENCES LECTURER) athologist Signature Calculated LDL 104 <=129 MGDL [...] FH and FDB is available chiquis martínez [facility]: FH/ADH Genetic Reflex Garcia el (test ADHP). Acquired (non-genetic) causes of markedly increased LDL cholesterol include cholestatic liver disease due to the presence of LpX. If a genetic form of hypercholesterolemia is suspected, family studies including biochemical testing fo r lipids (total cholesterol,triglycerides, LDL cholesterol and HDL cholesterol) are recommended. ??Please contact the laboratory at or the on-line test catalog at [employer] for information about how to order these [...] / Volume Laterality Blood 11/29/2015 12:50 PM SOCIAL SCIENCES LECTURER Nancy Mcconnell P.AMayur LAB BLOOD ADD-ON Performing Organization Address City/State/ZIP Code Phon e Number POWERCHART Thyroid-Stimulating Hormone-Sensitive (s-TSH) (11/29/2015 12:50 PM SOCIAL SCIENCES LECTURER) P athologist Signature TSH 3.09 0.27 - 4.20 POWERCHART (Thyrotropin) MIUL Specimen (Source) Anatomical Collection Method Collection Time Re ceived Time Location / / Volume Laterality Blood 11/29/2015 12:50 PM SOCIAL SCIENCES LECTURER Nancy Mcconnell P.AMayur LAB BLOOD ADD-ON Performing Organization Address City/State/ZIP Code Phon e Number POWERCHART documented in this encounter Visit Diagnoses Not on filedocumented in this encounter Additional Health Concerns Assessment Noted Time PHQ-9 Depression Total Score: 7 11/29/2015 11:32 AM CS T documented as of this encounter
--- OUTSIDE RECORDS SUMMARY | 2022-07-14 15:01 | XMS_ITS | Encounter Summary ---
:1990 Author Organization [facility] Address [address] [place] [address] Care Team Providers Name Role Phone Elsewhere, Pcp Primary Care Provider Unavailable Encounter Details Date Type Department Care Team Description 11/01/2021 Hospital Encounter Department of Stacy Pearl, Elsa dickinson Vaginal; Laboratory Medicine Barbie OVALLES, Kandi willingham Vaginal in [place], [place] R.N. [address] [place] [address] [place] [address] [place], [place] [phone] [address] Social History Tobacco Use Types Packs/Day [...] l Results for this GONADOTROPIN (HCG), PM PLATE MAKER ZINC Discharge Vaginal pro cedure are in ERVIN, the results section. documented in this encounter Results hCG (Human Chorionic Gonadotropin), Quantitative, (11/01/2021 12:29 PM PLATE MAKER ZINC) P athologist Signature HCG, <0.5 <5 IU/L 11/01/2021 AUST Quantitative, 2:40 PM PLATE MAKER ZINC , P Comment: Biotin has been identified by the bety chapa as a potential interfering substance. ??Higher concentr ations of biotin may be found in multivitamins, hair/nail supple ments, and workout supplements. ??If the result does not [facility] clinical observations, repeat testing after patient refrains fr om the use of supplements for at least 12 hours. Specimen Anatomical Collection Method Collection Time Receive d Time (Source) Location / / Volume Laterality Blood (Blood, 11/01/2021 12:29 11/01/2021 1:04 Venous) PM PLATE MAKER ZINC PM PLATE MAKER ZINC Stacy Pearl APRN C.N.P., R.N. LAB BLOOD ADD-ON Performing Organization Address City/State/ZIP Code Phon e Number [facility]- [address] [place], [place] [id number] [place] [address] LAB AUST [facility] - [address] documented in this encounter Visit Diagnoses Diagnosis Bleeding Vaginal Discharge Vaginal documented in this encounter Additional Health Concerns Assessment Noted Time PHQ-9 Depression Total Score: 7 11/29/2015 11:32 AM CS T documented as of this encounter Care Teams [employer] Coating Supervisor Relationship Specialty Start Date End Date Elsewhere, Pcp PCP - General 05/29/19 documented as of this encounter
--- OUTSIDE RECORDS SUMMARY | 2022-07-14 15:01 | XMS_ITS | Encounter Summary ---
:1990 Author Organization [facility] Address [address] [place] [address] Care Team Providers Name Role Phone Unavailable Primary Care Provider Unavailable Encounter Details Date Type Department Care Team Description 10/04/2014 Hospital Encounter [facility]X [facility] Nancy Mcconnell, P.A. [address] [place] [address] BILL Dominguez [id number] (Wo rk) Social History Tobacco Use Types Packs/Day Years Used Date Smoking Tobacco: Never Assessed Sex Assigned at Date Recorded Not on file documented as of this encounter Last Filed Vital Signs Vital Sign Reading Time Taken Comments Blood Pressure 98/56 10/04/2014 7:46 AM UNDERCOVER OPERATOR Pulse 68 10/04/2014 7:46 AM UNDERCOVER OPERATOR Temperature - - Respiratory Rate 20 10/04/2014 7:46 AM UNDERCOVER OPERATOR Oxygen Saturation - - Inhaled Oxygen Concentration - - Weight 95.7 kg (210 lb 15.7 oz) 10/04/2014 7:46 AM UNDERCOVER OPERATOR Height 164 cm (5' 4.57) 10/04/2014 7:46 AM UNDERCOVER OPERATOR Body Mass Index 35.58 10/04/2014 7:46 AM UNDERCOVER OPERATOR documented in this encounter Progress Notes Nancy Bernard L - 10/04/2014 7:39 AM CST [id number] CHIEF COMPLAINT/REASON FOR VISIT Right breast swelling [...] Prescription sentto her pharmacy. She may use [id number] Imodium for her diarrhea. We discussed working [...] BERNARD PA-C On: 11/27/2014 10:28 AM Source: [facility] MHSDOLBEYNONRADSYS Document Id: [id number] RCOVER OPERATOR documented in this encounter Miscellaneous Notes Miscellaneous - Trent Mortensen, RMayurN. - 12/26/2014 2:06 PM CDT Med Management- [...] cap(s) Refills: 0 Substitutions Allowed Print - [id number] Signed by NANCY BERNARD PA-C 12/26/2014 16:43:49 From: TRENT MORTENSEN ([facility]) To: NANCY BERNARD PA-C; Sent: 12/26/2014 14:06:11 CDT Subject: Med Management- Adderall XR On hold pending signature Order:dextroamphetamine-amphetamine (Adderall XR 30 mg oral capsule, extended release) 1 cap(s) PO Daily AM ADHD- [employer]ee/Owat Qty: 30 cap(s) Refills: 0 Substitutions Allowed Print - [email or web address] on LocalHost (from [id number]) in session 73 Caller is: ( ) Patient ( ) Mother ( ) Father ( ) Spouse ( ) Daughter ( ) Son ( ) Pharmacy ( ) Other: Provider: Marco Antonio Pharmacy: [facility] Name of Medications Needing Refill: Adderall XR Last Refill Date: 11-30-14 Additional Information: Last / Future Appointment: last appt: 10-04-14 future appt: none Disposition: ( ) Send to Pharmacy ( ) Call to Pharmacy ( ) Patient will tack picker Script ( ) Mail Rx to Patient Source: [facility] POWERCHART Document Id: [id number] Miscellaneous - Trent Collins CMayurMMayurAMayur - 10/27/2014 1:33 PM CST Med Management Document Contains Addenda Addendum by ANNA GUAMAN LPN on 30 October 2014 10:17:23 UNDERCOVER OPERATOR taken to information desk Addendum by NANCY BERNARD PA-C on 27 October 2014 17:37:10 UNDERCOVER OPERATOR From: NANCY BERNARD PA-C To: ALEXANDR Bernard Nurse; Sent: 10/27/2014 17:37:10 UNDERCOVER OPERATOR Subject: RE: Med Management In your box. Addendum by NANCY BERNARD PA-C on 27 October 2014 17:37:01 UNDERCOVER OPERATOR Approved Order:dextroamphetamine-amphetamine (Adderall XR 30 mg oral capsule, extended release) 1 cap(s) PO Daily AM ADHD Qty: 30 cap(s) Refills: 0 Substitutions Allowed Print - [id number] Signed by NANCY BERNARD PA-C 10/27/2014 17:36:57 From: TRENT COLLINS CMA ( Physical Medicine Rehab Nurse) To: NANCY BERNARD PA-C; Sent: 10/27/2014 13:33:30 UNDERCOVER OPERATOR Subject: Med Management On hold pending signature Order:dextroamphetamine-amphetamine (Adderall XR 30 mg oral capsule, extended release) 1 cap(s) PO Daily AM ADHD Qty: 30 cap(s) Refills: 0 Substitutions Allowed Print - [id number] Caller is: ( ) Patient ( ) [...] Call to Pharmacy ( ) Patient will tack picker Script ( ) Mail Rxto Patient Source: [facility] [employer] EuropeCHART Document Id: [id number] Miscellaneous - Paulino Batista, R.N. - 10/06/2014 [...] BATISTA RN To: PAULINO BATISTA RN; Cc: JYAE COVINGTON; Sent: 10/06/2014 16:24:07 UNDERCOVER OPERATOR Show up: 04/05/2015 08:00:00 CDT Subject: Reminder Ms month f/u mammo Please Remember to: Patient due for short term follow up on 04/05/2015. Please verify if images have been completed. PATIENT: ( ) Call Patient ( ) Ask Patient to ( ) ( ) Call Relative ( ) Schedule Patient ( ) ( ) Call for Associate Director Career Services ( ) Follow up on Results ( ) Other: PROVIDER: ( ) Call Physician ( ) Call Pharmacist ( ) Call Lab ( ) Other: Special Instructions: Comments: Source: [facility] [employer] EuropeCHART Document Id: [id number] Patricia - Trent Collins C.M.AMayur - 10/05/2014 11:20 AM CST PHQ-9 PHQ-9 Entered On: 10/05/2014 11:20 UNDERCOVER OPERATOR Performed On: 10/05/2014 11:20 UNDERCOVER OPERATOR by TRENT COLLINS [facility] PHQ-9 Little interest or pleasure in doing [...] : Not difficult at all TRENT COLLINS [facility] - 10/05/2014 11:20 UNDERCOVER OPERATOR Source: [facility] POWERCHART Document Id: [id number] UNDERCOVER OPERATOR!13 RCOVER OPERATOR Nancy Hamm - 10/04/2014 8:21 AM CST Ambulatory Patient Summary [address] [id number] Visit Information Name: YOLANDA LEONE [facility] Number: [id number] Current Date: 10/04/2014 08:21:19 [...] hours as neededfor Nausea New Routed to [place] [address] [place] [address] Stop Taking the Following Medications: Medication list [...] appointment detail needed. Your Goals/Additional instructions: Source: [facility] POWERCHART Document Id: [id number] RCOVER OPERATOR Miscellaneous - Nancy Bernard - 10/04/2014 8:21 AM CST Ambulatory Discharge Medication List [facility] [address] [place] [phone] Visit Information Name: YOLANDA LEONE [facility] Number: [id number] Visit Date: 10/04/2014 08:21:18 [...] hours as neededfor Nausea New Routed to [place] [address] [address] [place] [address] Stop Taking the Following Medications: Medication list [...] PA-C Signed On:04-OCT-2014 08:21:15 Additional Information: Source: [facility] Booktrope Document Id: [id number] RCOVER OPERATOR Anna Ramirez LMayurP.N. - 10/04/2014 8:06 AM CST Meaningful Use Influenza Exclusion Meaningful Use Influenza Exclusion Entered On: 10/04/2014 8:07 UNDERCOVER OPERATOR Performed On: 10/04/2014 8:06 UNDERCOVER OPERATOR by ANNA GUAMAN LPN Influenza Vaccine Exclusion Influenza Vaccine Exclusion : Patient declined ANNA GUAMAN LPN - 10/04/2014 8:06 UNDERCOVER OPERATOR Source: [facility] [employer] Document Id: [id number] UNDERCOVER OPERATOR!3 RCOVER OPERATOR Nancy Hamm - 10/04/2014 8:05 AM CST Work Excuse 04 October 2014 YOLANDA READ [address] [facility] [id number] Dear YOLANDA SULEMA, You were examined in my office on: [...] due to illness. Sincerely, NANCY BERNARD [address] [place] [address] Electronic Signature Electronically Signed By: NANCY BERNARD PA-C On: 04 October 2014 This document has images extracted. Source: [facility] Booktrope Document Id: [id number] Anna Ramirez, L.P.N. - 10/04/2014 7:46 AM CST Adult Director Of Instruction Intake/History Adult Director Of Instruction Intake/History Entered On: 10/04/2014 7:52 UNDERCOVER OPERATOR Performed On: 10/04/2014 7:46 UNDERCOVER OPERATOR by ANNA GUAMAN LPN Intake Chief Complaint [...] Index : 35.58 kg/m2 ANNA GUAMAN LPN 10/04/2014 7:46 UNDERCOVER OPERATOR General Info Information Given By : Patient Languages : Cambodian Is Patient Female and 13-50 no hysterectomy : Yes Status : Patient denies Are you ? : No ANNA GUAMAN LPN - 10/04/2014 7:46 UNDERCOVER OPERATOR Subjective Pain Symptoms : Yes ANNA GUAMAN LPN 10/04/2014 7:46 UNDERCOVER OPERATOR Pain Scale Pain Scale Verbal 0-10 : Open ANNA GUAMAN LPN 10/04/2014 7:46 UNDERCOVER OPERATOR Pain Pain Assessment Grid Pain 1 Location : Breast (Comment: Swells and just under the armpit on the right side [ANNA GUAMAN LPN 10/04/2014 7:46 UNDERCOVER OPERATOR] ) Quality : Heavy Pain Radiation : No Aggravating Factors : None Alleviating Factors : None Associated Symptoms : None, Vomiting (Comment: Flu - vomiting [ANNA GUAMAN LPN - 10/04/2014 7:46 UNDERCOVER OPERATOR] ) ANNA GUAMAN LPN - 10/04/2014 7:46 UNDERCOVER OPERATOR Dependent Habits Tobacco Use/Currently Using : Yes Exposure to Tobacco Smoke : Patient smokes Smoking Status : Current every day smoker KELSEYPEPITO GonzalezANNAGERRY Ruiz LPN - 10/04/2014 7:46 UNDERCOVER OPERATOR Tobacco Use Grid Type : Cigarettes Cigarette Use Packs/Day : 0.4 KELSEYCarlosANNA DISASTER RECOVERY ANALYST 10/04/2014 7:46 UNDERCOVER OPERATOR Caffeine Use Grid Caffeine Use : Current Type : Soft drinks Frequency : Occasionally ANNA GUAMAN LPN - 10/04/2014 7:46 UNDERCOVER OPERATOR Recreational Drug Use Grid Frequency : Occasionally ANNA GUAMAN LPN - 10/04/2014 7:46 UNDERCOVER OPERATOR ID Screen Drug Resistant Organism : No Travel Within Last 21 Days : No ANNA GUAMAN LPN - 10/04/2014 7:46 UNDERCOVER OPERATOR Source: [employer] Document Id: [id number] UNDERCOVER OPERATOR!58 RCOVER OPERATOR Miscellaneous - Anna Guaman, L.P.N. - 10/04/2014 7:45 AM CST Health Assessment Health Assessment Entered On: 10/04/2014 7:46 UNDERCOVER OPERATOR Performed On: 10/04/2014 7:45 UNDERCOVER OPERATOR by ANNA GUAMAN LPN Health Assessment Complete Health Assessment Complete or Modified : Annual Health Assessment Annual Health Assessment Completed : Yes ANNA GUAMAN LPN - 10/04/2014 7:45 UNDERCOVER OPERATOR Nutrition Nutrition Risk Factors by History Adult : None ANNA GUAMAN LPN - 10/04/2014 7:45 UNDERCOVER OPERATOR Functional Current Daily Living Assistance : None ANNA GUAMAN LPN - 10/04/2014 7:45 UNDERCOVER OPERATOR Dependent Habits Tobacco Use/Currently Using : Yes Exposure to Tobacco Smoke : Patient smokes Smoking Status : Current every day smoker TRAVIS ANNA Ruiz LPN 10/04/2014 7:45 UNDERCOVER OPERATOR Tobacco Use Grid Type : Cigarettes Cigarette Use Packs/Day : 0.4 ANNA GUAMAN LPN - 10/04/2014 7:45 UNDERCOVER OPERATOR Caffeine Use Grid Caffeine Use : Current Type : Soft drinks Frequency : Occasionally ANNA GUAMAN LPN - 10/04/2014 7:45 UNDERCOVER OPERATOR Recreational Drug Use Grid Frequency : Occasionally ANNA GUAMAN [facility] - 10/04/2014 7:45 UNDERCOVER OPERATOR Psychosocial Domestic Abuse Concerns : None Mandaen Preference : [facility] ANNA GUAMAN [facility] - 10/04/2014 7:45 UNDERCOVER OPERATOR Advance Directive Advanced Directives : No Advance Directive Additional Information : No ANNA GUAMAN [facility] - 10/04/2014 7:45 UNDERCOVER OPERATOR Educ Needs Learning Style Preference Adult Grid Patient : Demonstration, Printed materials, Verbal explanation, Video/Educational TV Family : None ANNA GUAMAN LPN - 10/04/2014 7:45 UNDERCOVER OPERATOR [facility] POWERCH[facility] Document Id: [id number] UNDERCOVER OPERATOR!34 RCOVER OPERATOR documented in this encounter Plan of Treatment Not on filedocumented as of this encounter Visit Diagnoses Not on filedocumented in this encounter Additional Health Concerns Assessment Noted Time PHQ-9 Depression Total Score: 3 10/05/2014 11:20 AM CS T documented as of this encounter
--- OUTSIDE RECORDS SUMMARY | 2022-07-14 15:02 | XMS_ITS | Encounter Summary ---
:1990 Author Organization [facility] Address [address] [place] [address] Care Team Providers Name Role Phone Unavailable Primary Care Provider Unavailable Encounter Details Date Type Department Care Team Description 09/01/2013 Hospital Encounter HX [facility] Sophia Leos M.D. Social History Tobacco Use Types Packs/Day Years Used Date Smoking Tobacco: Never Assessed Sex Assigned at Date Recorded Not on file documented as of this encounter Last Filed Vital Signs Vital Sign Reading Time Taken Comments Blood Pressure 110/58 09/01/2013 9:09 AM LYE BOILER Pulse 76 09/01/2013 9:09 AM LYE BOILER Temperature - - Respiratory Rate 18 09/01/2013 9:09 AM LYE BOILER Oxygen Saturation - - Inhaled Oxygen Concentration - - Weight 90.3 kg (199 lb 1.2 oz) 09/01/2013 9:09 AM LYE BOILER Height 164 cm (5' 4.57) 09/01/2013 9:09 AM LYE BOILER Body Mass Index 33.57 09/01/2013 9:09 AM LYE BOILER documented in this encounter Progress Notes Neha Montalvo M.D. - 09/01/2013 8:56 AM CST [id number] CHIEF COMPLAINT/REASON FOR VISIT Establish care, medication refill HISTORY OF PRESENT ILLNESS Yolanda is a 23-year-old female presenting today to establish care and she needs a refill of her Adderall, which she has been on for a long times she states and it is working well for her. She [place] in [place], but her primary clinic recently closed. She [...] HISTORY She is single. 0. 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 HABITS: She continues to smoke. VITAL SIGNS [...] their behalf by Candis Boone, a trained medical driver. The creation of this record is based on the scribe's personal observations and the provider's statements to them. This document has been checked and approved by the attending provider. Neha Leos M.D./aman Electronically Signed By: NEHA LEOS MD On: 09/01/2013 09:49 PM Source: [facility] MHSDOLBEYNONRADSYS Document Id: [id number] BOILER documented in this encounter Miscellaneous Notes Telephone Encounter - Trent Mortensen, RMayurNMayur - 05/02/2014 12:07 PM CDT Depo question From: TRENT MORTENSEN ([facility]) Sent: 05/02/2014 12:07:36 CDT Subject: Depo question [...] back cell phone number ( ) Source: [facility] POWERCHART Document Id: [id number] Electronically signed by Halle, [facility] Coating Engineer [id number] at 02/25/2017 1:46 PM CDT Miscellaneous - Neha Montalvo M.D. - 09/01/2013 10:21 AM LYE BOILER Ambulatory Patient Summary [facility] [address] [place] [id number] Visit Information Name: YOLANDA LEONE [facility] Number: [id number] Current Date: 09/01/2013 10:21:34 Physicians Attending Provider: NEHA LEOS MD Primary Care Provider: PCP, UNASSIGNED - YOLANDA YOUNGERE has been given the following list of [...] Time Location Reason Provider 09/19/2013 09:30 [facility] SENIOR QUALITY ANALYST DEPO DR DESOUZA [facility] SENIOR QUALITY ANALYST Nurse 10/18/2013 09:35 [facility] SENIOR QUALITY ANALYST laborer cheesemaking exam Nicolasa Desouza DO Attention: Contact your local Clinic if further appointment detail needed. Your Goals/Additional instructions: Source: [facility] POWERCHART Document Id: [id number] BOILER Miscellaneous - Neha Montalvo M.D. - 09/01/2013 10:21 AM LYE BOILER Ambulatory Depart Summary [facility] [address] [place] [address] Visit Information Name: YOLANDA LEONE [facility] Number: [id number] Visit Date: 09/01/2013 10:21:33 Attending Provider: NEHA LEOS MD Primary Care Provider: PCP, UNASSIGNED - ALEXANDR YOLANDA LEONE has been given the following [...] in case of emergency. Additional Information: Source: [facility] POWERCHART Document Id: [id number] BOILER Miscellaneous - Conversion, Historical Provider Ser - 09/01/2013 9:09 AM LYE BOILER Adult Communication Spec Intake/History Adult Communication Spec Intake/History Entered On: 09/01/2013 9:12 LYE BOILER Performed On: 09/01/2013 9:09 LYE BOILER by JOYA PHOENIX Intake Chief Complaint : [...] 33.57 kg/m2 JOYA PHOENIX - 09/01/2013 9:09 LYE BOILER General Info Information Given By : Patient Languages : Romansh JOYA PHOENIX - 09/01/2013 9:09 LYE BOILER Subjective Pain Symptoms : No JOYA PHOENIX - 09/01/2013 9:09 LYE BOILER Dependent Habits Tobacco Use/Currently Using : Yes Exposure to Tobacco Smoke : Patient smokes Smoking Status : Current every day smoker JOYA PHOENIX - 09/01/2013 9:09 LYE BOILER Tobacco Use Grid Type : Cigarettes Cigarette Use Packs/Day : 0.4 JOYA PHOENIX - 09/01/2013 9:09 LYE BOILER Caffeine Use Grid Caffeine Use : Current Type : Soft drinks Frequency : Occasionally JOYA PHOENIX - 09/01/2013 9:09 LYE BOILER Recreational Drug Use Grid Frequency : Occasionally JOYA PHOENIX - 09/01/2013 9:09 LYE BOILER Source: [facility] POWERCHART Document Id: [id number] LYE BOILER!39 Miscellaneous - Conversion, Historical Provider Ser - 09/01/2013 9:09 AM LYE BOILER Health Assessment Health Assessment Entered On: 09/01/2013 9:13 LYE BOILER Performed On: 09/01/2013 9:09 LYE BOILER by JOYA PHOENIX Health Assessment Complete Health Assessment Complete or Modified : Annual Health Assessment Annual Health Assessment Completed : Yes JOYA PHOENIX 09/01/2013 9:09 LYE BOILER Nutrition Nutrition Risk Factors by History Adult : None LIZETT JOYA 09/01/2013 9:09 LYE BOILER Functional Current Daily Living Assistance : None LIZETT JOYA Espino 09/01/2013 9:09 LYE BOILER Dependent Habits Tobacco Use/Currently Using : Yes Exposure to Tobacco Smoke : Patient smokes Smoking Status : Current every day smoker LIZETTJOYA 09/01/2013 9:09 LYE BOILER Tobacco Use Grid Type : Cigarettes Cigarette Use Packs/Day : 0.4 KELLENMARYLUJOYA CASTANO 09/01/2013 9:09 LYE BOILER Caffeine Use Grid Caffeine Use : Current Type : Soft drinks Frequency : Occasionally KELLENMARYLUOMAIRAJOYA 09/01/2013 9:09 LYE BOILER Recreational Drug Use Grid Frequency : Occasionally JOYA PHOENIX 09/01/2013 9:09 LYE BOILER Psychosocial Domestic Abuse Concerns : None LIZETTJOYA 09/01/2013 9:09 LYE BOILER Advance Directive Advanced Directives : No LIZETTJOYA 09/01/2013 9:09 LYE BOILER Educ Needs Learning Style Preference Adult Grid Patient : Demonstration, Printed materials, Verbal explanation, Video/Educational TV Family : None LIZETTJOYA 09/01/2013 9:09 LYE BOILER Source: [facility] POWERCHART Document Id: [id number] LYE BOILER!32 documented in this encounter Plan of Treatment Not on filedocumented as of this encounter Visit Diagnoses Not on filedocumented in this encounter Additional Health Concerns Assessment Noted Time PHQ-9 Depression Total Score: 5 10/14/2012 1:41 PM LYE BOILER documented as of this encounter
--- OUTSIDE RECORDS SUMMARY | 2022-07-14 15:02 | XMS_ITS | Encounter Summary ---
:1990 Author Organization [facility] Address [address] [place] [address] Care Team Providers Name Role Phone Unavailable Primary Care Provider Unavailable Encounter Details Date Type Department Care Team Description 11/21/2011 Hospital Encounter HX [facility] AUAC Nicolasa Toribio D.O. Social History Tobacco Use Types Packs/Day Years Used Date Smoking Tobacco: Never Assessed Sex Assigned at Date Recorded Not on file documented as of this encounter Procedure Notes Miya Reyes L.P.N. - 11/21/2011 2:09 PM CST Depo-Provera Administration Depo-Provera Administration Entered On: 11/21/2011 14:10 DIRECTOR OF NUCLEAR MEDICINE Performed On: 11/21/2011 14:09 DIRECTOR OF NUCLEAR MEDICINE by MIYA REYES LPN Depo-Provera Administration Last Depo-Provera Given : 08/29/2011 DIRECTOR OF NUCLEAR MEDICINE Return appointment : 02/11/2012 CDT Depo-Provera Administration Comments : lot#[id number] /[id number] MIYA REYES LPN - 11/21/2011 14:09 DIRECTOR OF NUCLEAR MEDICINE Source: [facility] POWERCHART Document Id: [id number] DIRECTOR OF NUCLEAR MEDICINE!5 CTOR OF NUCLEAR MEDICINE documented in this encounter Miscellaneous Notes Telephone Encounter - Conversion, Historical Provider Ser - 10/09/2011 12:40 PM CST Phone Message Document Contains Addenda Addendum by LENI PEREZ LPN on 09 October 2011 17:13:45 DIRECTOR OF NUCLEAR MEDICINE see other message of today. Addendum by LAUREN CANAS MD on 09 October 2011 17:03:49 DIRECTOR OF NUCLEAR MEDICINE From: LAUREN CANAS MD To: KEVAN Canas Nurse; Sent: 10/09/2011 17:03:49 DIRECTOR OF NUCLEAR MEDICINE Subject: RE: Phone Message redo Addendum by LAUREN CANAS MD on 09 October 2011 16:59:48 DIRECTOR OF NUCLEAR MEDICINE Submitted: Order Order: dextroamphetamine-amphetamine (Adderall XR 10 mg oral capsule, extended release) 1 cap(s) PO Daily AM Qty: 30 cap(s) Refills: 0 Print - [id number] Signed by LAUREN CANSA MD 10/09/2011 16:56:59 Addendum by GABY VALLADARES LPN on 09 October 2011 13:54:26 DIRECTOR OF NUCLEAR MEDICINE From: GABY VALLADARES LPN ( Ana Nurse) To: LAUREN CANAS MD; Sent: 10/09/2011 13:54:26 DIRECTOR OF NUCLEAR MEDICINE Subject: FW: Phone Message Addendum by STEVEN AWAD MD on 09 October 2011 13:18:49 DIRECTOR OF NUCLEAR MEDICINE From: STEVEN AWAD MD To: Ana Nurse; Sent: 10/09/2011 13:18:49 DIRECTOR OF NUCLEAR MEDICINE Subject: FW: Phone Message forw to pcp or rn clinical documentation specialist Addendum by GABY VALLADARES LPN on 09 October 2011 12:59:28 DIRECTOR OF NUCLEAR MEDICINE From: GABY VALLADARES LPN ( Ana Nurse) To: STEVEN AWAD MD; Sent: 10/09/2011 12:59:28 DIRECTOR OF NUCLEAR MEDICINE Subject: FW: Phone Message please advise Addendum by PATTI HERNANDEZ RN on 09 October 2011 12:51:29 DIRECTOR OF NUCLEAR MEDICINE From: PATTI HENRANDEZ RN ([facility] Nurse) To: KEVAN Awad Nurse; Sent: 10/09/2011 12:51:29 DIRECTOR OF NUCLEAR MEDICINE Subject: FW: Phone Message Pt calling---States her pharmacy, [facility] in [place] has not received adderall scrips. Please see note on 10/01, Dr. Awad printed scrips and it says they were sent to customer service. [facility] called [employer] and they have no record of getting anything for this pt. Pt is now out of medication and is wondering if the scrips can be reprinted and sent to customer service to be mailed ot [facility] in [place]. Pt can be reached at [phone]. From: KATIE MITCHELL ([facility]) To: KEVAN VALENZUELA Nurse; Sent: 10/09/2011 12:40:52 DIRECTOR OF NUCLEAR MEDICINE Subject: Phone Message Caller is: ( X [...] back cell phone number ( ) Source: [facility] POWERCHART Document Id: [id number] documented in this encounter Plan of Treatment Not on filedocumented as of this encounter Visit Diagnoses Not on filedocumented in this encounter
--- OUTSIDE RECORDS SUMMARY | 2022-07-14 15:02 | XMS_ITS | Encounter Summary ---
:1990 Author Organization [facility] Address [address] [place] [address] Care Team Providers Name Role Phone Unavailable [...] I did refill her ADHD meds. Back Nuclear Weapons Specialist's Manual reviewed. Will allow her to go [...] CANAS MD On: 06/05/2011 10:16 PM Source: [facility] AMCDICTAPHONESYS Document Id: [id number] documented in this encounter Miscellaneous Notes Telephone Encounter - Conversion, Historical Provider Ser - 08/28/2011 11:10 AM CST Phone Message Document Contains Addenda Addendum by ANG SIMON RN on 28 August 2011 11:11:25 LEAD TECHNICAL ARCHITECT Mom will call back with more info on med supply. From: TRAVIS ROBERTS ([facility]) To: [facility] Nurse; Sent: 08/28/2011 11:10:55 LEAD TECHNICAL ARCHITECT Subject: Phone Message Caller is: ( ) [...] back cell phone number ( ) Source: [facility] 7digital Document Id: [id number] Telephone Encounter - Conversion, Historical Provider Ser - 08/28/2011 11:06 AM CST Phone Message Document Contains Addenda Addendum by JOE MORROW LPN on 28 August 2011 13:23:51 LEAD TECHNICAL ARCHITECT mailed to adi winters. Addendum by RAKAN CANAS MD on 28 August 2011 12:52:44 LEAD TECHNICAL ARCHITECT From: RAKAN CANAS MD To: KEVAN Canas Nurse; Sent: 08/28/2011 12:52:44 LEAD TECHNICAL ARCHITECT Subject: RE: Phone Message Submitted: Order Order: dextroamphetamine-amphetamine (Adderall XR 10 mg oral capsule, extended release) 1 cap(s) PO Daily AM Qty: 30 cap(s) Refills: 0 Print - [id number] Signed by RAKAN CANAS MD 08/28/2011 12:49:29 Submitted: Order Order: dextroamphetamine-amphetamine (Adderall XR 20 mg oral capsule, extended release) 1 cap(s) PO Daily AM Qty: 30 cap(s) Refills: 0 Print - [id number] Signed by RAKAN CANAS MD 08/28/2011 12:47:43 Addendum by RAKAN CANAS MD on 28 August 2011 12:52:17 LEAD TECHNICAL ARCHITECT From: RAKAN CANAS MD To: KEVAN VALENZUELA Nurse; Sent: 08/28/2011 12:52:17 LEAD TECHNICAL ARCHITECT Subject: RE: Phone Message ok Submitted: Order Order: dextroamphetamine-amphetamine (Adderall XR 10 mg oral capsule, extended release) 1 cap(s) PO Daily AM Qty: 30 cap(s) Refills: 0 Print - [id number] Signed by RAKAN CANAS MD 08/28/2011 12:49:29 Submitted: Order Order: dextroamphetamine-amphetamine (Adderall XR 20 mg oral capsule, extended release) 1 cap(s) PO Daily AM Qty: 30 cap(s) Refills: 0 Print - [id number] Signed by RAKAN CANAS MD 08/28/2011 12:47:43 Addendum by PATTI HERNANDEZ RN on 28 August 2011 11:13:21 LEAD TECHNICAL ARCHITECT From: PATTI HERNANDEZ RN ([facility] Nurse) To: RAKAN CANAS MD; Sent: 08/28/2011 11:13:21 LEAD TECHNICAL ARCHITECT Subject: FW: Phone Message Pt calling--States she needs refills on her adderall 10mg and 20mg tabs mailed to her pharmacy. Pt can be reached at [phone]. [facility] pharmacy in [place]. From: TRAVIS ROBERTS ([facility]) To: KEVAN VALENZUELA Nurse; Sent: 08/28/2011 11:06:39 LEAD TECHNICAL ARCHITECT Subject: Phone Message Caller is: ( ) [...] back cell phone number ( ) Source: [facility] POWERNightingale Document Id: [id number] Telephone Encounter - Ang Mckay R.N. - 06/20/2011 3:08 PM CDT Phone Message Document Contains Addenda Addendum by JOE MORROW LPN on 20 June 2011 17:18:19 CDT Addendum by ANG MCKAY RN on 20 June 2011 15:17:42 CDT From: ANG MCKAY RN ([facility] Nurse) To: KEVAN Canas Nurse; Sent: 06/20/2011 15:17:42 CDT Subject: FW: Phone Message pt calls; [phone] She was in and got her Adderall rx recently, when she took the paper to her pharmacy she only had the rx for the 10 mg, says she was not given the rx for the 20 mg. Can you assist her? From: ANG MCKAY RN ([facility] Nurse) To: [facility] Nurse; Sent: 06/20/2011 15:08:05 CDT Subject: Phone [...] back cell phone number ( ) Source: [facility] POWERCHART Document Id: [id number] Electronically signed by Halle, [facility] Handstitching Machine Armhole Feller [id number] at 03/01/2017 2:01 PM CDT Miscellaneous - Rakan Canas M.D. - 06/03/2011 9:08 AM CDT Ambulatory Patient Summary [address] [address] Visit Information Name: YOLANDA LEONE Current Date: [...] Time Location Reason Provider 06/09/2011 15:15 AUAC CORRECTIONAL OFFICER CAPTAIN PX/PAP LylyNicolasa lorenzo DO Your Goals/Additional instructions: Source: [facility] POWERCHART Document Id: [id number] Electronically signed by Halle [facility] Handstitching Machine Armhole Feller [id number] at 03/01/2017 2:01 PM CDT Miscellaneous - Rakan Canas M.D. - 06/03/2011 9:08 AM CDT Ambulatory Depart Summary [place] [place] [address] Visit Information Name: YOLANDA LEONE Current Date: [...] to the patient and/or family, guardian/caregiver. Source: [facility] POWERCHART Document Id: [id number] Electronically signed by Conversion, [facility] Handstitching Machine Armhole Feller [id number] at 03/01/2017 2:00 PM CDT Miscellaneous - Conversion, Historical Provider Ser - 06/03/2011 8:18 AM CDT Adult Accelerator Systems Director Intake/History Adult Accelerator Systems Director Intake/History Entered On: 06/03/2011 8:21 CDT Performed [...] back Laterality: Right Intensity: 9 JOE MORROW [facility] - 06/03/2011 8:18 CDT Dependent Habits Tobacco Use/Currently Using: Yes Alcohol Use: No JOE MORROW [facility] - 06/03/2011 8:18 CDT Caffeine Use Grid Caffeine Use: Current Type: Soft drinks JOE MORROW [facility] - 06/03/2011 8:18 CDT Recreational Drug Use Grid Frequency: Occasionally JOE MORROW [facility] - 06/03/2011 8:18 CDT Allergy Allergies (Active) naproxen Estimated Onset Date: Unspecified ; Reactions: ITCHING ; Created By: Contributor_system, AU_HX_SYS; Reaction Status: Active ; Category: Drug ; Substance: naproxen ; Type: Unknown ; Severity: <not entered> Source: [facility] 7digital Document Id: [id number] CDT!30 documented in this encounter Plan of Treatment Not on filedocumented as of this encounter Visit Diagnoses Not on filedocumented in this encounter
--- OUTSIDE RECORDS SUMMARY | 2022-07-14 15:02 | XMS_ITS | Encounter Summary ---
:1990 Author Organization [facility] Address [address] [place] [address] Care Team Providers Name Role Phone Unavailable Primary Care Provider Unavailable Encounter Details Date Type Department Care Team Description 02/02/2013 Hospital En[facility] APR[facility], C.N.P., R. N. [address] [place] [address] (Wo rk) Social History Tobacco Use Types [...] Body Mass Index 34.04 11/03/2012 2:13 PM ANIMAL ATTENDANTS AND TRAINERS documented in this encounter Progress Notes Anna Contreras, Brenden.N.P., R.N. - 02/02/2013 10:02 AM CDT [id number] CHIEF COMPLAINT/REASON FOR THE VISIT Is a [...] CONTRERAS CNP On: 02/07/2013 08:41 AM Source: [facility] MHSDOLBEYNONRADSYS Document Id: [id number] documented in this encounter Miscellaneous Notes Miscellaneous - Conversion, Historical Provider Ser - 07/19/2013 7:13 AM CDT Medication Refill Msg Document Contains Addenda Addendum by VASQUEZ VINCENT on 21 July 2013 08:59:03 CDT Rx mailed to J[facility] Terry 07/20/13 @ 12:50pm Addendum by SHARMILA LINTON CMA on 19 July 2013 08:08:15 CDT From: SHARMILA LINTON CMA (KEVAN Lawler/Dillan/Case Nurse) To: Customer Service; Sent: 07/19/2013 08:08:15 CDT Subject: FW: Medication Refill Msg Addendum by SHARMILA LINTON CMA on 19 July 2013 08:08:08 CDT Rx sent to customer service to be sent to Jd [facility]. Pt. notified of below and understands [...] cap(s) Refills: 0 Substitutions Allowed Print - [id number] Signed by MEGHANA LAWLER DO 07/19/2013 07:33:49 From: JOAN RICO (AU Abstracting) To: MEGHANA LAWLER DO; Sent: 07/19/2013 07:13:43 CDT Subject: Medication Refill Msg Caller is: ( ) Patient ( ) Mother ( ) Father ( ) Spouse ( ) Daughter ( ) Son ( ) Pharmacy ( ) Other: Provider: NO PCP Pharmacy: [facility] : 1990 Name of Medications Needing Refill: ADDERALL XR 30 MG CAPSULE, TAKE ONE CAPSULE BY MOUTH EVERY MORNING. QTY: 30 Last Refill Date: 06/15/2013 Additional Information:Please mail hardcopy to Wins[facility] Miles. Last / Future Appointment: Disposition: ( ) Send to Pharmacy ( ) Call to Pharmacy ( ) Patient will turkey picker Script ( ) Mail Rx to Patient Source: [facility] POWERCHART Document Id: [id number] Miscellaneous - Conversion, Historical Provider Ser - 05/13/2013 3:56 PM CDT Medication Refill Msg Document Contains Addenda Addendum by FARNAZ HUTCHISON on 16 May 2013 11:22:57 CDT Mailed to Silver Gomez. Pt informed. Addendum by ANNA CONTRERAS CNP on 16 May 2013 09:09:35 CDT From: ANNA CONTRERAS CNP To: AU Abstracting; Sent: 05/16/2013 09:09:35 CDT Subject: RE: [...] Call to Pharmacy ( ) Patient will turkey picker Script ( ) Mail Rx to Patient Source: [facility] POWERCHART Document Id: [id number] Miscellaneous - Cathy Garcia L.PMayurNMayur - 03/10/2013 3:07 PM CDT General Message Document Contains Addenda Addendum by KAYLEY POSADA MANUFACTURING PROJECT MANAGER on 10 March 2013 15:26:03 CDT pt coming to turkey picker, left at hotel front desk clerk Addendum by ANNA CONTRERAS CNP on 10 March 2013 15:20:39 CDT From: ANNA CONTRERAS CNP To: [facility] Nurse; Sent: 03/10/2013 15:20:39 CDT Subject: RE: General Message ready and in my box From: CATHY GARCIA LPN ([facility] To: ANNA CONTRERAS MAGAZINE KEEPER; Sent: 03/10/2013 15:07:33 CDT Subject: General Message Adderall XR 30mg daily is needing to be refilled.Pt states that she uses [facility].Would like us to call her when script is ready.[phone] Thank you Source: [facility] Intrallect Document Id: [id number] Electronically signed by Conversion, [facility] Fiberglass Boat Parts Finisher [id number] at 02/25/2017 3:59 AM CDT Miscellaneous - Conversion, Historical Provider Ser - 03/10/2013 2:59 PM CDT General Message From: SHARMILA VARGAS ( [facility] Approver) To: [facility] Nurse; Sent: 03/10/2013 14:59:00 CDT Subject: General Message Caller Name / Relationship Call Back # pt in waiting room Reason for Call Needs RX written wants to take to [place] Source: [facility] ChatosityCHART Document Id: [id number] Miscellaneous - Anna Contreras, C.N.P., R.N. - [...] Ref Range 02/02/2013 11:21 HSV Type I IgG-[place] Negative (Negative - ) 02/02/2013 11:21 HSV Type II IgG-[place] Negative (Negative - ) 02/02/2013 11:21 HSV IgM EIA-[place] Negative (Negative - ) Source: [facility] POWERCHART Document Id: [id number] Electronically signed by Conversion, [facility] Fib[employer] Finisher [id number] at 02/25/2017 3:59 AM CDT Miscellaneous - Conversion, Historical Provider Ser - 02/02/2013 10:06 AM CDT Adult Oil Rig [place] Intake/History Adult Oil Rig [place] Intake/History Entered On: 02/02/2013 10:09 CDT Performed [...] Information Given By : Patient Languages : Croatian FARNAZ HUTCHISON - 02/02/2013 10:06 CDT Subjective [...] Occasionally LIGHTLYFARNAZ - 02/02/2013 10:06 CDT Source: [facility] POWERCHART Document Id: [id number] CDT!33 documented in this encounter Plan of [...] or on cord blood. Test Performed by: [place] [address] Leasing Machine Tender: Fredi rose III, M.D. Specimen (Source) Anatomical Collection Method Collection Time Re ceived Time Location / / Volume Laterality Blood 02/02/2013 11:21 AM CDT Anna Contreras APRN, C.N.P., R.N. LAB MICROBIOLOGY - BLOOD ORDERABLES Performing Organization Address City/State/ZIP Code Phon e Number POWERCHART documented in this encounter Visit Diagnoses Not on filedocumented in this encounter Additional Health Concerns Assessment Noted Time PHQ-9 Depression Total Score: 5 10/14/2012 1:41 PM ANIMAL ATTENDANTS AND TRAINERS documented as of this encounter
--- OUTSIDE RECORDS SUMMARY | 2022-07-14 15:02 | XMS_ITS | Encounter Summary ---
:1990 Author Organization [facility] Address [address] [place] [address] Care Team Providers Name Role Phone Unavailable Primary Care Provider Unavailable Encounter Details Date Type Department Care Team Description 07/14/2013 Hospital Encounter [facility] Naomie Shukla M.D. [address] [place], [place] [address] (Wo rk) Social History [...] Shukla M.D. - 07/14/2013 5:29 PM CDT [id number] CHIEF COMPLAINT/REASON FOR VISIT Acute pharyngitis and [...] SHUKLA MD On: 07/20/2013 02:18 PM Source: [facility] MHSDOLBEYNONRADSYS Document Id: [id number] documented in this encounter Procedure Notes Flor Ochoa L.P.N. - 07/14/2013 5:53 PM CDT Rapid Strep A Screen POC Rapid Strep A Screen POC Entered On: 07/14/2013 17:53 CDT Performed On: 07/14/2013 17:53 CDT by FLOR OCHOA Rapid Strep A Screen POC Rapid Strep A Screen POC : Negative FLOR OCHOA - 07/14/2013 17:53 CDT Source: [facility] POWERCHART Document Id: [id number] CDT!3 documented in this encounter Miscellaneous Notes Miscellaneous - Beverly Shukla M.D. - 07/14/2013 6:09 PM CDT Work Excuse 14 July 2013 YOLANDA READ [address] [place] [id number] Dear YOLANDA READ, You were examined in [...] limitation. Beverly Tobias Sincerely, BEVERLY SHUKLA [address] [place] [id number] Electronic Signature Electronically Signed By: BEVERLY SHUKLA MD On: 14 July 2013 This document has images extracted. Source: [facility] [employer] Document Id: [id number] Electronically signed by Halle [facility] Rail Detector Car Operator [id number] at 02/25/2017 1:49 AM CDT Miscellaneous - Beverly Shukla M.D. - 07/14/2013 6:04 PM CDT Ambulatory Patient Summary [facility] [address] [place] [id number] Visit Information Name: YOLANDA LEONE [facility] Number: [id number] Current Date: 07/14/2013 18:04:01 Physicians [...] Time Location Reason Provider 09/19/2013 09:30 AUAC JUVENILE JUSTICE SPECIALIST DEPO DR DESOUZA COUNTS INCLUDE 234 BEDS AT THE [facility] JUVENILE JUSTICE SPECIALIST Nurse 10/18/2013 09:35 COUNTS INCLUDE 234 BEDS AT THE [facility] JUVENILE JUSTICE SPECIALIST admitting coordinator exam Nicolasa Desouza DO Attention: Contact your local Clinic if further appointment detail needed. Your Goals/Additional instructions: [facility] Document Id: [id number] Miscellaneous - Beverly Shukla M.D. - 07/14/2013 6:04 PM CDT Ambulatory Depart Summary [address] [address] Visit Information Name: YOLANDA LEONE [facility] Number: [id number] Visit Date: 07/14/2013 18:04:00 Attending Provider: UNKNOWN1, PROVIDER Primary Care Provider: PCP, UNASSIGNED - ALEXANDR LEONEYOLANDA has been given the following list of [...] your provider for clarification. Additional Information: [facility] Document Id: [id number] Miscellaneous - Flor Ochoa L.P.N. - 07/14/2013 5:42 PM CDT Adult Ophthalmic Pathologist Intake/History Adult Ophthalmic Pathologist Intake/History Entered On: 07/14/2013 17:44 CDT Performed [...] Information Given By : Patient Languages : Belarusian FLOR OCHOA - 07/14/2013 17:42 CDT Subjective [...] FLOR OCHOA - 07/14/2013 17:42 CDT Source: Vitals (vitals.com) Document Id: [id number] CDT!35 documented in this encounter Plan of Treatment Not on filedocumented as of this encounter Procedures Procedure Name Priority Date/Time Associated Diagnosis Comme nts RAPID STREP A Routine 07/14/2013 6:08 PM Results for this SCREEN CDT procedure are i n the results section. documented in this encounter Results Rapid Strep A Screen (07/14/2013 6:08 PM CDT) [facility] Method Time Signature HXRapid Strep POWERCHART Confirmation [...] Depression Total Score: 5 10/14/2012 1:41 PM SURGICAL TERRITORY MANAGER documented as of this encounter
--- OUTSIDE RECORDS SUMMARY | 2022-07-14 15:02 | XMS_ITS | Encounter Summary ---
:1990 Author Organization [facility] Address [address] [place] [address] Care Team Providers Name Role Phone Unavailable [...] Depression Total Score: 7 11/04/2013 1:22 PM EXCEPTIONAL STUDENT EDUCATION TEACHER documented as of this encounter
--- OUTSIDE RECORDS SUMMARY | 2022-07-14 15:02 | XMS_ITS | Encounter Summary ---
:1990 Author Organization [facility] Address [address] [place] [address] Care Team Providers Name Role Phone Unavailable Primary Care Provider Unavailable Encounter Details Date Type Department Care Team Description 02/12/2012 Hospital Encounter HX [facility] AUAC Nicolasa Toribio D.O. Social History [...] PAL LPN - 02/12/2012 13:27 CDT Source: [facility] POWERCHART Document Id: [id number] CDT!5 documented in this encounter Plan of Treatment Not on filedocumented as of this encounter Visit Diagnoses Not on filedocumented in this encounter
--- OUTSIDE RECORDS SUMMARY | 2022-07-14 15:02 | XMS_ITS | Encounter Summary ---
:1990 Author Organization [facility] Address [address] [place] [address] Care Team Providers Name Role Phone Unavailable Primary Care Provider Unavailable Encounter Details Date Type Department Care Team Description 01/04/2013 Hospital Encounter HX [facility]AC OBGYN Germán Desouza D.O. Social History [...] Body Mass Index 35.49 11/03/2012 2:13 PM SERVICE STATION OPERATOR documented in this encounter Progress Notes Germán Desouza, DRaji. - 01/04/2013 1:00 PM CDT [id number] The patient is a 22-year-old 0 female [...] to be with normal limits. [place] and [place] glands were normal. Vagina is pink. Normal rugae. Cervix is nulliparous. GC and chlamydia cultures areobtained. Vaginosis panel is obtained. IMPRESSION/REPORT/PLAN Sexually transmitted disease check. PLAN: We will recheck the patient on a p.r.n. basis. Germán Desouza D.O./aracely Electronically Signed By: GERMÁN DESOUZA DO On: 01/10/2013 10:41 AM Source: [facility] IRASEMAOLBEYNDONAVON Document Id: [id number] documented in this encounter Procedure Notes Ochoa Reyes L.PMayurNMayur - 01/04/2013 1:26 PM CDT Depo-Provera Administration Depo-Provera Administration Entered On: 01/04/2013 13:27 CDT Performed On: 01/04/2013 13:26 CDT by OCHOA REYES LPN Depo-Provera Administration Last Depo-Provera Given : 01/04/2013 CDT Return appointment : 03/25/2013 CDT Depo-Provera Administration Comments : lot# [id number] OCHOA REYES LPN - 01/04/2013 13:26 CDT Source: [facility] POWERCHART Document Id: [id number] CDT!5 documented in this encounter Miscellaneous Notes Miscellaneous - Germán Desouza D.O. - 01/05/2013 12:00 AM CDT [id number] YOLANDA [place] READ January 05, 2013 [address] [place] [address] Dear Yolanda: I received the report of you GC and chlamydia. They were both negative. If you have any questions, please feel free to contact us. Sincerely, Germán Desouza D.O. Department of Obstetrics & Gynecology fmf Electronically Signed By: GERMÁN DESOUZA DO On: 01/06/2013 07:55 AM Source[facility] Document Id: [id number] Patricia - Germán Desouza D.O. - 01/04/2013 1:33 PM CDT Ambulatory Depart Summary [address] [place] [address] Visit Information Name: YOLANDA LEONE [facility] Number: [id number] Visit Date: 01/04/2013 13:33:06 Attending Provider: GERMÁN DESOUZA DO Primary Care Provider: EDWARDO CONTRERAS [facility] YOLANDA LEONE has been given the following [...] your provider for clarification. Additional Information: Source: [facility] POWERCHART Document Id: [id number] Patricia - Germán Desouza D.O. - 01/04/2013 1:33 PM CDT Ambulatory Patient Summary [address] [place] [id number] Visit Information Name: YOLANDA LEONE [facility] Number: [id number] Current Date: 01/04/2013 13:33:07 Physicians Attending Provider: GERMÁN DESOUZA DO Primary Care Provider: EDWARDO CONTRERAS [facility] Your Medications Here is a list of [...] Time Location Reason Provider 10/18/2013 09:35 AUAC DIPLOMATIC INTERPRETER/TRANSLATOR clinical team manager exam Germán Desouza DO Your Goals/Additional instructions: Source: [facility] POWERCHART Document Id: [id number] Miscellaneous - RetterathOchoa L.PMayurNMayur - 01/04/2013 1:25 PM CDT Adult Supervisor Heading Intake/History Document Has Been Updated Adult Supervisor Heading Intake/History Entered On: 01/04/2013 13:25 CDT Performed On: 01/04/2013 13:25 CDT by OCHOA REYES LPN Intake Chief Complaint : depo and std/grava 0 Actual Weight : 97.8 kg(Converted to: 215 lb 10 oz) Dosing Weight Clinic : 97.8 kg OCHOA REYES LPN - 01/04/2013 13:25 CDT General Info Information Given By : Patient Languages : Bruneian OCHOA REYES LPN - 01/04/2013 13:25 CDT [...] REYES LPN - 01/04/2013 13:25 CDT Source: [facility] SonosCHART Document Id: [id number] CDT!4 Miscellaneous - Germán Desouza D.O. - 01/04/2013 12:00 AM CDT [id number] YOLANDA [place] READ January 04, 2013 [address] [place] [address] Dear Yolanda: I received the report of your vaginosis panel. It is negative for trichomonas bacterial vaginosis and yeast. If you have any questions, please feel free to contact us. Sincerely, Germán Desouza D.O. Department of Obstetrics & Gynecology ksw Electronically Signed By: GERMÁN DESOUZA DO On: 01/04/2013 05:20 PM Source: [facility] BRYCESDMARIA EUGENIA Document Id: [id number] documented in this encounter Plan of Treatment [...] Component Value Ref Test Analysis Performed At [facility] Method Time Signature HX GC by Nucleic POWERCHART Acid Amplification HXFinal Negative for POWERCHART Neisseria gonorrhea by DNA amplification . HXFinal Reference: POWERCHART Negative Specimen (Source) Anatomical Collection Method Collection Time Re ceived Time Location / / Volume Laterality Cervix/Endocervix 01/04/2013 1:30 PM CDT Germán Desouza D.O. LAB MICROBIOLOGY - GENERAL O RDERABLES Performing Organization Address City/State/[facility] Code Phon e Number POWERCHART Chlamydia Trachomatis Amplified RNA (01/04/2013 1:30 PM CDT) Component Value Ref Test Analysis Performed At [facility] Method Time Signature HXChlamydia by POWERCHART [...] Component Value Ref Test Analysis Performed At [facility] gist Range Method Time Signature HXVaginitis POWERCHART [...] Total Score: 5 10/14/2012 1:41 PM SERVICE STATION OPERATOR documented as of this encounter
--- OUTSIDE RECORDS SUMMARY | 2022-07-14 15:02 | XMS_ITS | Encounter Summary ---
:1990 Author Organization [facility] Address [address] [place] [address] Care Team Providers Name Role Phone Unavailable Primary Care Provider Unavailable Encounter Details Date Type Department Care Team Description 12/09/2013 Hospital Encounter HX [facility] Jason Gonzales P.AMayur -C. [address] [place] [address] (Wo rk) Social History Tobacco Use Types Packs/Day Years Used Date Smoking Tobacco: Never Assessed Sex Assigned at Date Recorded Not on file documented as of this encounter Last Filed Vital Signs Vital Sign Reading Time Taken Comments Blood Pressure 104/62 12/09/2013 11:31 AM CDT Pulse - - Temperature - - Respiratory Rate - - Oxygen Saturation - - Inhaled Oxygen Concentration - - Weight - - Height - - Body Mass Index - - documented in this encounter Procedure Notes Rosemary Evans, R.N. - 12/09/2013 11:31 AM CDT Depo-Provera Administration Depo-Provera Administration Entered On: 12/09/2013 11:31 CDT Performed On: 12/09/2013 11:31 CDT by ROSEMARY EVANS Depo-Provera Administration Annual Exam in the Past 12 Months : Yes Last Depo-Provera Given : 09/20/2013 ALARM ADJUSTER Needs test : No Depo-Provera Administration Comments : RETURN DATE 02/24-03/10 ROSEMARY EVANS - 12/09/2013 11:31 CDT Vitals/Ht/Wt Systolic Blood Pressure : 104 mmHg Diastolic Blood Pressure : 62 mmHg NIBP Mean : 76 mmHg BP Location : Right upper extremity Blood Pressure Cuff Size : Large ROSEMARY EVANS - 12/09/2013 11:31 CDT Source: [facility] POWERCHART Document Id: [id number]!12 documented in this encounter Miscellaneous Notes Miscellaneous - Rosemary Evans R.N. - 12/08/2013 2:45 PM CDT Med Management-Depo Document Contains Addenda Addendum by LENI TILLMAN MD on 08 December 2013 17:42:40 CDT From: LENI TILLMAN MD Sent: 12/08/2013 17:42:39 CDT Subject: RE:Med Management-Depo Approved Order:medroxyPROGESTERone (Depo-Provera Contraceptive 150 mg/mL intramuscular suspension) 1 mL IM q3mo RECURRING ORDER, GIVE EVERY 12 WEEKS Qty: 1 mL Refills: 3 Substitutions Allowed Don't Print - other reason (Rx) Signed by LENI TILLMAN MD 12/08/2013 17:42:36 From: ROSEMARY EVANS ([facility]/Travel Nurse) To: LENI TILLMAN MD; Sent: 12/08/2013 14:45:00 CDT Subject: Med Management-Depo On hold pending signature Order:medroxyPROGESTERone (Depo-Provera Contraceptive 150 mg/mL intramuscular suspension) 1 mL IM q3mo RECURRING ORDER, GIVE EVERY 12 WEEKS Qty: 1 mL Refills: 3 Substitutions Allowed Don't Print - other reason (Rx) Caller is: ( ) Patient ( ) Mother ( ) Father ( ) Spouse ( ) Daughter ( ) Son ( ) Pharmacy ( ) Other: Physician: [place] Patient MRN #: Reason for Call: Please review and renew recurring order for Depo. Last physical was 11/04/13. Message: Advice/Action: Source used: ( ) Verbalizes [...] back cell phone number ( ) Source: [facility] POWERCHART Document Id: [id number] Electronically signed by Conversion, [facility] Software Verification Engineer [id number] at 02/24/2017 3:42 AM CDT documented in this encounter Plan of Treatment Not on filedocumented as of this encounter Visit Diagnoses Not on filedocumented in this encounter Additional Health Concerns Assessment Noted Time PHQ-9 Depression Total Score: 7 11/04/2013 1:22 PM ALARM ADJUSTER documented as of this encounter
--- OUTSIDE RECORDS SUMMARY | 2022-07-14 15:02 | XMS_ITS | Encounter Summary ---
:1990 Author Organization [facility] Address [address] [place] [address] Care Team Providers Name Role Phone Unavailable Primary Care Provider Unavailable Encounter Details Date Type Department Care Team Description 10/06/2012 Hospital Encounter HX [facility] Anibal Isaacs APRN, C.N.P., [address] [place] [address] (Wo rk) Social History Tobacco Use Types Packs/Day Years Used Date Smoking Tobacco: Never Assessed Sex Assigned at Date Recorded Not on file documented as of this encounter Last Filed Vital Signs Vital Sign Reading Time Taken Comments Blood Pressure 90/68 10/06/2012 2:01 PM APPLIANCE LINE ASSEMBLER Pulse 84 10/06/2012 2:01 PM APPLIANCE LINE ASSEMBLER Temperature - - Respiratory Rate - - Oxygen Saturation - - Inhaled Oxygen Concentration - - Weight 109 kg (240 lb 4.8 oz) 10/06/2012 2:01 PM APPLIANCE LINE ASSEMBLER Height - - Body Mass Index - - documented in this encounter Progress Notes Anna Contreras, RyanNMayurPMayur, R.N. - 10/06/2012 12:00 AM CST CLINIC NOTE Event Type: LE DICTATED BY: Anna Contreras NP DATE: 10/06/2012 IMPRESSION/REPORT/PLAN She does have attention-deficit disorder, and she needs to get back on her Adderall. We are going to refill her Adderall XR 30 mg. She will take one a day in the morning. She can have #30 and then will see her in a month see if that dose is a good dose for her. Have advised that she keep the caffeine at a minimum, regular exercise, regular sleep pattern, regular meal pattern. Call with any problems or questions. Risks and benefits of the medications discussed. To follow up in one month. CHIEF COMPLAINT/REASON FOR VISIT Establish and to get medication refill. HISTORY OF PRESENT ILLNESS Yolanda presents today to get a refill on her Adderall XR. She has a long-standing history of attention-deficit disorder, took Adderall for several years and then stopped about a year ago just due to some financial issues. It was very helpful for her when she was taking it. She is a smoker. She has not had a problem with her appetite with the Adderall. She does not have a problem with sleep, although she has had a problem with her focus over this last year with trying to concentrate at work. She is trying to get a job, so I think she does need to get back on the Adderall. She is not having any headaches, no problems with her skin, not having problems swallowing, no chest pain, no shortness of breath, no indigestion issues, no problems with urination. Bowel movements are normal. No problems with joint pain. She does not have any history of any kind of heart problem, no history of hypertension. The 30 mg of the XR was the best dose for her. Also, she uses Depo-Provera and sees Dr. Desouza for gynecological needs and will see her again in the spring. VITAL SIGNS Temperature is 36.2, heart rate is 84, blood pressure 90/68, weight is 109. She is a smoker. PHYSICAL EXAMINATION GENERAL: She is a pleasant 22-year-old who appears stated age. SKIN: Warm and dry. No lesions or rashes. HEENT: Her pupils are equal, reactive to light. NECK: Supple. No thyromegaly. No lymphadenopathy. HEART: Regular rate and rhythm to her heart. No murmurs or extra heart sounds. LUNGS: Clear to auscultation. ABDOMEN: Soft. Bowel sounds are present. No pain to palpation. No costovertebral angle tenderness. EXTREMITIES: Upper and lower extremities with good muscle tone. Deep tendon reflexes are 2+ and equal bilaterally. KPC:florencia cc: Electronically Signed By: ANNA CONTRERAS CNP On: 10/08/2012 04:52 PM Source: [facility] AMCDICTAPHONESYS Document Id: [id number] IANCE LINE ASSEMBLER documented in this encounter Miscellaneous Notes Miscellaneous - Conversion, Historical Provider Ser - 06/13/2013 3:34 PM CDT Medication Refill Msg Document Contains Addenda Addendum by SANTANA JONES on 14 June 2013 17:35:08 CDT Picked up by [facility] 8:35 06/14 by Sabrina Fournier. Addendum by TERRI PENNY LPN on 13 June 2013 16:07:09 CDT From: TERRI PENNY LPN ([facility] Nurse) To: Customer Service; Sent: 06/13/2013 16:07:09 CDT Subject: FW: Medication Refill Msg Addendum by TERRI PENNY LPN on 13 June 2013 16:07:03 CDT written rx sent to customer service desk for [facility] in [place]. Addendum by JORDON WARD CNP on 13 June 2013 15:52:44 CDT From: JORDON WADR CNP To: [facility] Nurse; Sent: 06/13/2013 15:52:44 CDT Subject: RE: Medication Refill Msg printed Addendum by JORDON WARD CNP on 13 June 2013 15:52:24 CDT Submitted: Order:dextroamphetamine-amphetamine (Adderall XR 30 mg oral capsule, extended release) 1 cap(s) PO Daily AM Qty: 30 cap(s) Refills: 0 Substitutions Allowed Print - [id number] Signed by JORDON WARD CNP 06/13/2013 15:52:00 From: SHARMILA RICO ( Abstracting) To: JORDON WARD CNP; Sent: 06/13/2013 15:34:12 CDT Subject: Medication Refill Msg Caller is: ( ) Patient ( ) Mother ( ) Father ( ) Spouse ( ) Daughter ( ) Son ( ) Pharmacy ( ) Other: Provider: NO PCP Pharmacy: [facility] - 1990 Name of Medications Needing Refill:ADDERALL XR 30 MG CAPSULE , TAKE 1 CAPSULE BY MOUTH EVERY MORNING, QTY 30 Last Refill Date: 05/18/2013 Additional Information:Patient is looking for a provider in [place] but needs a refill till then. Last / Future Appointment: Disposition: ( ) Send to Pharmacy ( ) Call to Pharmacy ( ) Patient will cloth picker Script ( ) Mail Rx to Patient Source: [facility] [email or web address] Document Id: [id number] Miscellaneous - Conversion, Historical Provider Ser - 10/11/2012 9:03 AM APPLIANCE LINE ASSEMBLER General Message Document Contains Addenda Addendum by OCHOA REYES LPN on 11 October 2012 11:31:35 APPLIANCE LINE ASSEMBLER From: OCHOA REYES LPN ([facility]) To: GERMÁN DESOUZA DO; Sent: 10/11/2012 11:31:35 APPLIANCE LINE ASSEMBLER Subject: FW: General Message Addendum by OCHOA REYES LPN on 11 October 2012 11:31:30 APPLIANCE LINE ASSEMBLER does need pap/appt for depo on made px for her the same day to talk with about her bc From: TRAVIS Hawkins ([facility]) To: KEVAN Desouza Nurse; Sent: 10/11/2012 09:03:22 APPLIANCE LINE ASSEMBLER Subject: General Message Caller Name/Relationship SELF Facility/Wing Call Back # [phone] Reason For Call SHOULD SHE KEEP HER APPOINTMENT FOR HER DEPO SHOT ON 10-14 OR HAS SHE BEEN ON IT TO LONG Source: [facility] [email or web address] Document Id: [id number] Miscellaneous - Cathy Garcia, L.P.N. - 10/07/2012 11:44 AM CST PHQ-9 PHQ-9 Entered On: 10/07/2012 11:45 APPLIANCE LINE ASSEMBLER Performed On: 10/07/2012 11:44 APPLIANCE LINE ASSEMBLER by CATHY GACRIA LPN PHQ-9 Little interest or pleasure in doing things : Several days Feeling down, depressed, or hopeless : Not at all Trouble falling or staying asleep, or sleeping too much : Nearly every day Feeling tired or having little energy : More than half the days Poor appetite or overeating : More than half the days Feeling bad about yourself or that you are a failure : Several days Trouble concentrating on things : Nearly every day Moving or speaking slowly; restless or fidgety : Several days Thoughts that you would be better off /hurting self : Not at all PHQ-9 Calculated Score : 13 Problems make work, home, or dealing with others : Very difficult CATHY GARCIA LPN - 10/07/2012 11:44 APPLIANCE LINE ASSEMBLER Source: [employer] Document Id: [id number] IANCE LINE ASSEMBLER Miscellaneous - Conversion, Historical Provider Ser - 10/06/2012 2:01 PM APPLIANCE LINE ASSEMBLER Adult Hog Ringer Intake/History Adult Hog Ringer Intake/History Entered On: 10/06/2012 14:03 APPLIANCE LINE ASSEMBLER Performed On: 10/06/2012 14:01 APPLIANCE LINE ASSEMBLER by FARNAZ HUTCHISON Chief Complaint : medication refill Temperature Core : 36.2C(Converted to: 97.2DegF) (LOW) Peripheral Pulse Rate : 84/min Systolic Blood Pressure : 90mmHg (LOW) Diastolic Blood Pressure : 68mmHg NIBP Mean : 75mmHg Actual Weight : 109kg(Converted to: 240lb 5oz) Dosing Weight Clinic : 109.00kg FARNAZ HUTCHISON - 10/06/2012 14:01 APPLIANCE LINE ASSEMBLER Subjective Pain Symptoms : No FARNAZ HUTCHISON - 10/06/2012 14:01 APPLIANCE LINE ASSEMBLER Dependent Habits Tobacco Use/Currently Using : Yes Smoking Status : Current every day smoker Alcohol Use : No FARNAZ HUTCHISON 10/06/2012 14:01 APPLIANCE LINE ASSEMBLER Caffeine Use Grid Caffeine Use : Current Type : Soft drinks Frequency : Occasionally LIGHTLYFARNAZ 10/06/2012 14:01 APPLIANCE LINE ASSEMBLER Recreational Drug Use Grid Frequency : Occasionally LIGHTLYFARNAZ 10/06/2012 14:01 APPLIANCE LINE ASSEMBLER Allergy Allergies (Active) naproxen Estimated Onset Date: Unspecified ; Reactions: ITCHING ; Created By: Contributor_system, KEVANChangeTip; Reaction Status: Active ; Category: Drug ; Substance: naproxen ; Type: Unknown ; Severity: <not entered> ; Updated By: Contributor_systemKEVAN_M L[employer] Solution_RepS; Reviewed Date: 10/06/2012 14:01 APPLIANCE LINE ASSEMBLER Source: [employer] Document Id: [id number] Miscellaneous - Conversion, Historical Provider Ser - 10/06/2012 2:01 PM APPLIANCE LINE ASSEMBLER Health Assessment Health Assessment Entered On: 10/06/2012 14:03 APPLIANCE LINE ASSEMBLER Performed On: 10/06/2012 14:01 APPLIANCE LINE ASSEMBLER by FARNAZ HUTCHISON Health Assessment Complete Health Assessment Complete or Modified : Annual Health Assessment Annual Health Assessment Completed : Yes FARNAZ HUTCHISON 10/06/2012 14:01 APPLIANCE LINE ASSEMBLER Nutrition Nutrition Risk Factors by History Adult : None FARNAZ HUTCHISON - 10/06/2012 14:01 APPLIANCE LINE ASSEMBLER Functional Current Daily Living Assistance : None FARNAZ HUTCHISON 10/06/2012 14:01 APPLIANCE LINE ASSEMBLER Dependent Habits Tobacco Use/Currently Using : Yes Smoking Status : Current every day smoker FARNAZ HUTCHISON 10/06/2012 14:01 APPLIANCE LINE ASSEMBLER Tobacco Use Grid Cigarette Use Packs/Day : 0.5 LIGHTLYFARNAZ 10/06/2012 14:01 APPLIANCE LINE ASSEMBLER Caffeine Use Grid Caffeine Use : Current Type : Soft drinks Frequency : Occasionally LIGHTLYFARNAZ 10/06/2012 14:01 APPLIANCE LINE ASSEMBLER Recreational Drug Use Grid Frequency : Occasionally LIGHTLYFARNAZ 10/06/2012 14:01 APPLIANCE LINE ASSEMBLER Psychosocial Domestic Abuse Concerns : None LIGHTLYFARNAZ 10/06/2012 14:01 APPLIANCE LINE ASSEMBLER Advance Directive Advanced Directives : No LIGHTLYFARNAZ 10/06/2012 14:01 APPLIANCE LINE ASSEMBLER Educ Needs Learning Style Preference Adult Grid Patient : None Family : None LIGHTFARNAZ SIMMONS 10/06/2012 14:01 APPLIANCE LINE ASSEMBLER Source: [employer] Document Id: [id number] documented in this encounter Plan of Treatment Not on filedocumented as of this encounter Visit Diagnoses Not on filedocumented in this encounter Additional Health Concerns Assessment Noted Time PHQ-9 Depression Total Score: 13 10/07/2012 11:[address] documented as of this encounter
--- OUTSIDE RECORDS SUMMARY | 2022-07-14 15:02 | XMS_ITS | Encounter Summary ---
:1990 Author Organization [facility] Address [address] [place] [address] Care Team Providers Name Role Phone Unavailable Primary Care Provider Unavailable Encounter Details Date Type Department Care Team Description 09/01/2011 Hospital Encounter HX [facility] Carmelita Jones M.D. [address] [place] [phone] (Wo rk) Social History Tobacco Use Types Packs/Day Years Used Date Smoking Tobacco: Never Assessed Sex Assigned at Date Recorded Not on file documented as of this encounter Progress Notes Jack Jones M.D. - 09/01/2011 12:00 AM CST [id number] HISTORY OF PRESENT ILLNESS This 21-year-old female [...] JONES MD On: 09/07/2011 11:56 AM Source: [facility] MHSDOLBEYNONRADSYS Document Id: [id number] LS INSPECTOR documented in this encounter Miscellaneous Notes Miscellaneous - Mila Albert L.PMayurNMayur - 09/01/2011 1:10 PM CST Adult Computer Aided Design Technician Intake/History Adult Computer Aided Design Technician Intake/History Entered On: 09/01/2011 13:13 SHELLS INSPECTOR Performed On: 09/01/2011 13:10 SHELLS INSPECTOR by MILA ALBERT Intake Chief Complaint : Right ear aches, [...] 214lb 1oz) Dosing Weight Clinic : 97.10kg MILA ALBERT 09/01/2011 13:10 SHELLS INSPECTOR Subjective Pain Symptoms : Yes MILA ALBERT 09/01/2011 13:10 SHELLS INSPECTOR Pain Pain Assessment Grid Pain 1 Location : Ear Laterality : Right MILA ALBERT 09/01/2011 13:10 SHELLS INSPECTOR Dependent Habits Tobacco Use/Currently Using : Yes Smoking Status : Smoker MILA ALBERT 09/01/2011 13:10 SHELLS INSPECTOR Tobacco Use Grid Cigarette Use Packs/Day : 0.5 MILA ALBERT 09/01/2011 13:10 SHELLS INSPECTOR Caffeine Use Grid Caffeine Use : Current Type : Soft drinks Frequency : Occasionally MILA ALBERT 09/01/2011 13:10 SHELLS INSPECTOR Recreational Drug Use Grid Frequency : Occasionally MILA ALBERT 09/01/2011 13:10 SHELLS INSPECTOR Allergy Allergies (Active) naproxen Estimated Onset Date: Unspecified ; Reactions: ITCHING ; Created By: Contributor_system, AU_HX_SYS; Reaction Status: Active ; Category: Drug ; Substance: naproxen ; Type: Unknown ; Severity: <not entered> ; Updated By: Contributor_system, AU_HX_SYS; Reviewed Date: 09/01/2011 13:09 SHELLS INSPECTOR Source: [facility] [employer] Document Id: [id number] SHELLS INSPECTOR!34 LS INSPECTOR documented in this encounter Plan of Treatment Not on filedocumented as of this encounter Visit Diagnoses Not on filedocumented in this encounter
--- OUTSIDE RECORDS SUMMARY | 2022-07-14 15:02 | XMS_ITS | Encounter Summary ---
:1990 Author Organization [facility] Address [address] [place] [address] Care Team Providers Name Role Phone Unavailable [...] Depression Total Score: 5 10/14/2012 1:41 PM INPATIENT CODER documented as of this encounter
--- OUTSIDE RECORDS SUMMARY | 2022-07-14 15:02 | XMS_ITS | Encounter Summary ---
:1990 Author Organization [facility] Address [address] [place] [address] Care Team Providers Name Role Phone Unavailable [...] Depression Total Score: 5 10/14/2012 1:41 PM BANQUET SERVER documented as of this encounter
--- OUTSIDE RECORDS SUMMARY | 2022-07-14 15:02 | XMS_ITS | Encounter Summary ---
:1990 Author Organization [facility] Address [address] [place] [address] Care Team Providers Name Role Phone Unavailable Primary Care Provider Unavailable Encounter Details Date Type Department Care Team Description 03/25/2013 Hospital Encounter HX NO MAPPING Ed Marie M.D. [address] [place] [address] (Wo rk) Social History Tobacco Use Types Packs/Day Years Used Date Smoking Tobacco: Never Assessed Sex Assigned at Date Recorded Not on file documented as of this encounter Plan of Treatment Not on filedocumented as of this encounter Visit Diagnoses Not on filedocumented in this encounter Additional Health Concerns Assessment Noted Time PHQ-9 Depression Total Score: 5 10/14/2012 1:41 PM TENNIS CENTRE MANAGER documented as of this encounter
--- OUTSIDE RECORDS SUMMARY | 2022-07-14 15:02 | XMS_ITS | Encounter Summary ---
:1990 Author Organization [facility] Address [address] [place] [address] Care Team Providers Name Role Phone Unavailable Primary Care Provider Unavailable Encounter Details Date Type Department Care Team Description 11/04/2013 Hospital Encounter HX [facility] FAMILYPRA Sophia Leos M.D. Social History Tobacco Use Types Packs/Day Years Used Date Smoking Tobacco: Never Assessed Sex Assigned at Date Recorded Not on file documented as of this encounter Last Filed Vital Signs Vital Sign Reading Time Taken Comments Blood Pressure 98/70 11/04/2013 1:16 PM TAPPER HELPER Pulse 88 11/04/2013 1:16 PM TAPPER HELPER Temperature - - Respiratory Rate 20 11/04/2013 1:16 PM TAPPER HELPER Oxygen Saturation - - Inhaled Oxygen Concentration - - Weight 88.5 kg (195 lb 1.7 oz) 11/04/2013 1:16 PM TAPPER HELPER Height 164 cm (5' 4.57) 11/04/2013 1:16 PM TAPPER HELPER Body Mass Index 32.9 11/04/2013 1:16 PM TAPPER HELPER documented in this encounter H&P Notes Leni Montalvo M.D. - 11/04/2013 1:10 PM CST [id number] Document Contains Addenda CHIEF COMPLAINT/REASON FOR VISIT [...] She is single. 0. 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 HABITS: She continues to smoke. FAMILY HISTORY [...] their behalf by Candis Boone, a trained lead medical technologist. The creation of this record is based on the scribe's personal observations and the provider's statements to them. This document has been checked and approved by the attending provider. Leni Leos M.D./aman Electronically Signed By: LENI LEOS MD On: 11/25/2013 09:27 PM Source: [facility] [id number] Document Id: [id number] ER HELPER documented in this encounter Miscellaneous Notes Miscellaneous - Leni Montalvo M.D. - 11/08/2013 5:08 PM TAPPER HELPER Custom Result Letter 08 November 2013 YOLANDA READ [address] [facility] [id number] Dear YOLANDA READ, I am pleased to report that your results from your pap is normal. You will need your next pap in 3 years. If you have questions or concerns, please do not hesitate to call our office. Result Name Current Result OPERATIONS WELDER Cytology 11/04/2013 Sincerely, LENI LEOS [address] [place] [address] Electronic Signature Electronically Signed By: LENI LEOS MD On: 08 November 2013 This document has images extracted. Source: [facility] POWERCHART Document Id: [id number] Electronically signed by Conversion, [facility] Railroad Passenger Agent [id number] at 02/24/2017 2:41 PM CDT Miscellaneous - Leni Montalvo M.D. - 11/07/2013 12:34 PM TAPPER HELPER Normal Results Letter 07 November 2013 YOLANDA READ [address] [facility] [id number] Dear YOLANDA READ, I am pleased to report that your results from the following diagnostic test(s) are normal. If you have questions or concerns, please do not hesitate to call our office. Result Name Current Result Normal Range C trach Amp Src-[place] CERVIX 11/04/2013 C trach Amp RNA-[place] Negative 11/04/2013 Negative - Sincerely, LENI LEOS [address] [place] [address] Electronic Signature Electronically Signed By: LENI LEOS MD On: 07 November 2013 This document has images extracted. Source: [facility] [employer] Document Id: [id number] Electronically signed by Halle [facility] Railroad Passenger Agent [id number] at 02/24/2017 2:41 PM CDT Miscellaneous - Janee Beltran, LMayurP.N. - 11/04/2013 3:05 PM CST Meaningful Use Influenza Exclusion Meaningful Use Influenza Exclusion Entered On: 11/04/2013 15:05 TAPPER HELPER Performed On: 11/04/2013 15:05 TAPPER HELPER by JANEE BELTRAN Influenza Vaccine Exclusion Influenza Vaccine Exclusion : Patient declined JANEE BELTRAN - 11/04/2013 15:05 TAPPER HELPER Source: [facility] [employer] Document Id: [id number] TAPPER HELPER!3 ER HELPER Miscellaneous - Leni Montalvo M.D. - 11/04/2013 2:20 PM TAPPER HELPER Ambulatory Patient Summary [facility] [address] [place] [id number] Visit Information Name: YOLANDA LEONE [facility] Number: [id number] Current Date: 11/04/2013 14:20:27 Physicians [...] appointment detail needed. Your Goals/Additional instructions: Source: [facility] POWERCHART Document Id: [id number] ER HELPER Miscellaneous - Leni Montalvo M.D. - 11/04/2013 2:20 PM TAPPER HELPER Ambulatory Depart Summary [facility] [address] [place] [address] Visit Information Name: SULEMA YOLANDA JEAN PIERRE [facility] Number: [id number] Visit Date: 11/04/2013 14:20:26 Attending [...] in case of emergency. Additional Information: [facility] Document Id: [id number] ER HELPER Miscellaneous - Janee Beltran L.P.N. - 11/04/2013 1:22 PM CST PHQ-9 PHQ-9 Entered On: 11/04/2013 13:26 TAPPER HELPER Performed On: 11/04/2013 13:22 TAPPER HELPER by JANEE BELTRAN PHQ-9 Little interest or [...] Somewhat difficult JANEE BELTRAN - 11/04/2013 13:22 TAPPER HELPER [facility] Document Id: [id number] TAPPER HELPER!13 ER HELPER Miscellaneous - Janee Beltran L.P.N. - 11/04/2013 1:16 PM CST Adult Senior Lead Developer Intake/History Adult Senior Lead Developer Intake/History Entered On: 11/04/2013 13:20 TAPPER HELPER Performed On: 11/04/2013 13:16 TAPPER HELPER by JANEE BELTRAN Intake Chief Complaint : [...] 32.9 kg/m2 JANEE BELTRAN - 11/04/2013 13:16 TAPPER HELPER General Info Information Given By : Patient Languages : Malay JANEE BELTRAN - 11/04/2013 13:16 TAPPER HELPER Subjective Pain Symptoms : No JANEE BELTRAN 11/04/2013 13:16 TAPPER HELPER Dependent Habits Tobacco Use/Currently Using : Yes Exposure to Tobacco Smoke : Patient smokes Smoking Status : Current every day smoker JANEE BELTRAN - 11/04/2013 13:16 TAPPER HELPER Tobacco Use Grid Type : Cigarettes Cigarette Use Packs/Day : 0.4 JANEE BELTRAN 11/04/2013 13:16 TAPPER HELPER Caffeine Use Grid Caffeine Use : Current Type : Soft drinks Frequency : Occasionally JANEE BELTRAN - 11/04/2013 13:16 TAPPER HELPER Recreational Drug Use Grid Frequency : Occasionally JANEE BELTRAN 11/04/2013 13:16 TAPPER HELPER Source: [facility] POWERCHART Document Id: [id number] TAPPER HELPER!38 ER HELPER documented in this encounter Plan of Treatment Not on filedocumented as of this encounter Procedures Procedure Name Priority Date/Time Associated Diagnosis Comme nts C TRACH AMP SRC Routine 11/04/2013 2:37 PM Result s for this TAPPER HELPER procedure are i n the results section. C TRACH AMP RNA Routine 11/04/2013 2:37 PM Result s for this TAPPER HELPER procedure are i n the results section. PATHOLOGY OPERATIONS WELDER Routine 11/04/2013 12:00 AM Results for this CYTOLOGY TAPPER HELPER procedure are i n the results section. documented in this encounter Results HX-C trach Amp RNA (11/04/2013 2:37 PM TAPPER HELPER) Patholo gist Method Time Signature Chlamydia Negative POWERCHART trachomatis amplified RNA Specimen (Source) Anatomical Collection Method Collection Time Re ceived Time Location / / Volume Laterality 11/04/2013 2:37 PM TAPPER HELPER Narrative POWERCHART - 11/05/2013 8:55 PM TAPPER HELPER Test Performed by: [address] [address] Stadium Attendant: Fredi rose III, M.D. Leni Leos M.D. LAB HISTORICAL ORDERS Performing Organization Address City/[facility] Code Phon e Number POWERCHART HX-C trach Amp Src (11/04/2013 2:37 PM TAPPER HELPER) P athologist Signature HXC trach Amp CERVIX POWERCHART Src-[place] Specimen (Source) Anatomical Collection Method Collection Time Re ceived Time Location / / Volume Laterality 11/04/2013 2:37 PM TAPPER HELPER Leni Leos M.D. LAB HISTORICAL ORDERS Performing Organization Address [facility] Phon e Number POWERCHART Pathology OPERATIONS WELDER Cytology (11/04/2013 12:00 AM TAPPER HELPER) Specimen (Source) Anatomical Location Collection Method / Collectio n Time Received Time / Laterality Volume 11/04/2013 Narrative [facility] LAB - 11/08/2013 2:51 PM TAPPER HELPER [facility] [address] [place] [facility] [address] [facility] [address] [place], [place] ??[address] Patient Name: YOLANDA LEONE Patient ID #: [id number] Collected: 11/04/2013 Address: City/State/Zip: [address] [place] [address] ??[phone] Received: Reported: 11/07/2013 11/08/2013 Soc. Sec. #: ?/Age/Sex 1990 (Age: 23) ??F Physician(s): HUGO LEOS MD Copy To: ? [facility] ?? [id number] [place], ??[place] ??[address] CYTOPATHOLOGY OPERATIONS WELDER REPORT FINAL CYTOLOGIC DIAGNOSIS Pap Smear - ThinPrep: NEGATIVE FOR INTRAEPITHELIAL LESION OR MALIGNANCY REACTIVE/REPARATIVE CHANGES. ENDOCERVICAL CELLS/COMPONENT PRESENT. SATISFACTORY SPECIMEN FOR EVALUATION. ??This specimen required a physician interpretation under CLIA 1987 ?? Electronically Signed Out By [facility]/11/08/2013 KEITH BENTLEY M.D. [facility] The Pap test is a screening procedure [...] Depression Total Score: 7 11/04/2013 1:22 PM TAPPER HELPER documented as of this encounter
--- OUTSIDE RECORDS SUMMARY | 2022-07-14 15:02 | XMS_ITS | Encounter Summary ---
:1990 Author Organization [facility] Address [address] [place] [address] Care Team Providers Name Role Phone Unavailable Primary Care Provider Unavailable Encounter Details Date Type Department Care Team Description 06/05/2011 - Hospital Encounter HX [facility] Yousufuddin, 06/10/2011 Robert Colin M.D. [address] [place] [id number] Social History Tobacco Use Types Packs/Day Years Used Date Smoking Tobacco: Never Assessed Sex Assigned at Date Recorded Not on file documented as of this encounter Discharge Summaries Juana Campoverde R.N. - 06/10/2011 5:05 PM CDT Discharge Medication List [facility] [address] [place] [address] Discharge Medication List Name: EMILIANO LEONE Current Date: 06/10/2011 17:05:02 : 1990 12:00 AM Patient Address: [address] [facility] [id number] Patient Primary Care Provider: Name: LAUREN STRINGER MD Discharge Diagnosis: Suicidal risk [facility] in [place] would like to thank you for allowing [...] JEROME BERNAL MD Signed On:10-JUN-2011 09:00:39 Source: [facility] POWERCHART Document Id: [id number] Juana Campoverde R.N. - 06/10/2011 5:05 PM CDT Inpatient Discharge Instructions [facility] [address] [place] [address] Patient Discharge Instructions Name: EMILIANO LEONE Current Date: 06/10/2011 17:05:01 : 1990 12:00 AM Patient Address: [address] [facility] [id number] Patient Primary Care Provider: Name: LAUREN STRINGER MD Discharge Diagnosis: Suicidal risk [facility] in [place] would like to thank you for allowing us to assist you with your healthcare needs. The following includes patient education materials and information regarding your injury/illness. Comment: SULEMA EMILIANO GREENFIELD has been given the following list of follow-up instructions, prescriptions, andpatient education materials: Follow-up Instructions With: Address: When: GREG ESPOSITO [address] [place] [address] phone, Nagi (1) , only if needed Comments: Ist openning is for Jun. pt will call and schedule appointment that works with her schedule. With: Address: When: curam developer , only if needed Comments: Depo injection next due on Sep.01. reschedule curam developer for H&P I, READ, EMILIANO GREENFIELD , have received the attached patient education materials/instructions and have verbalized understanding: Patient Signature Date/Time Provider Signature Date/Time Source: [facility] POWERCHART Document Id: [id number] Electronically signed by [facility] Hat Blocking Operator [id number] at 03/01/2017 2:01 PM CDT Juana Campoverde [...] ARMANDO RN - 06/10/2011 17:04 CDT Source: [facility] POWERCHART Document Id: [id number] CDT!10 Jerome Bernal M.D. - 06/10/2011 12:00 AM CDT ADDENDUM Document Contains Addenda REVISION HISTORY Uploading report to correct folder. 06/26/2011 Cms Electronically Signed By: JEROME EBRNAL MD On: 06/19/2011 08:53 AM Co-Signed By: JEROME BERNAL MD On: 06/19/2011 08:53 AM Source: [facility] AMCDICTAPHONESYS Document Id: [id number] Emmanuel Lo RMayurN. - 06/05/2011 10:32 PM CDT ED Depart Summary [facility] Emergency Department / Urgent Care Clinical Discharge Summary PERSON INFORMATION Name EMILIANO LEONE Age 21 Years 1990 12:[birth year] AM Sex Female Language Faroese PCP LAUREN STRINGER MD Marital Status Single Visit Id Visit Reason Psychiatric screening exam; [facility] Specialty Enc Type Emergency Med Service Emergency Medicine Referred by Track Group [facility] ED/UC Discharge Tracking Id [id number] Checkout 06/05/2011 10:32 PM Checkin 06/05/2011 8:43 PM Acuity 2 -Emergent Dispo Type Admitted as Inpatient to this Hospital Arrival 06/05/2011 8:43 PM Reg Status Complete LOS 000 01:49 Address: [address] [facility] [id number] Comment: PROVIDER INFORMATION Provider Role Assigned Unassigned EMMANUEL LO MILK PROCESSING WORKER Nurse 06/05/2011 8:57 PM ERUM VALLADARES MD ED Provider 06/05/2011 8:58 PM DIAGNOSIS Comment: PATIENT EDUCATION INFORMATION Instructions: Follow up: Source: [facility] POWERCHART Document Id: [id number] Emmanuel Lo, R.N. - 06/05/2011 10:32 PM CDT ED Discharge Instructions [place] [address] [place] [address] Name: EMILIANO LEONE Date of : 1990 12:00 AM Visit Date: 06/05/2011 8:43 PM Address: [address] [facility] [id number] Primary Care Provider: LAUREN STRINGER MD IMPORTANT: [facility] in [place] would like to thank you for allowing [...] arrange a ride home with a responsible green party. I, EMILIANO LEONE , or responsible green party have received this information and my questions have been answered. I have discussed any challenges I see with this plan with the nurse or physician. Patient Signature or Responsible Constitution Party/Relationship Date/Time Provider Signature Date/Time Medication Reconciliation: [...] arrange a ride home with a responsible green party. I, READ, EMILIANO GREENFIELD , or responsible green party have received this information and my questions have been answered. I have discussed any challenges I see with this plan with the nurse or physician. Patient Signature or Responsible Constitution Party/Relationship Date/Time Provider Signature Date/Time Source: [employer] Document Id: [id number] Electronically signed by [facility]alle [facility] Hat Blocking Operator [id number] at 03/01/2017 2:01 PM CDT documented in [...] BOLANOS OTR - 06/11/2011 7:53 CDT Source: [employer] Document Id: [id number] CDT!7 Zhen Meza - 06/10/2011 3:14 PM [...] ZHEN MEZA On: 06/10/2011 03:16 pm Source: [employer] Document Id: [id number] Conversion, Deejay Provider Ser - 06/10/2011 2:10 PM CDT CBT GROUP Reviewed Cognitive Behavioral Therapy (CBT): cognitive distortions and automatic thoughts. Met goalby identifying automatic thoughts, distortions, and more positive thoughts. Demonstrated a very pleasant attitude and showed active participation. Electronically Signed By: SYDNI ANDERSON PSY.D., LP On: 06/10/2011 02:10 pm Source: [employer] Document Id: [id number] Mariama Bolanos O.Luh - 06/10/2011 11:27 AM CDT OT Daily [...] BOLANOS OTR - 06/10/2011 11:27 CDT Source: [employer] Document Id: [id number] CDT!18 Zhen Meza - 06/09/2011 3:55 PM CDT [facility] PT ENGAGED IN THE LEARNING AND PRACTICE OF YADI CHI. Electronically Signed By: ZHEN MEZA On: 06/09/2011 03:56 pm [facility] Document Id: [id number] Ibis Chao O.TMichele - 06/09/2011 12:06 PM [...] CHAO OT - 06/09/2011 12:06 CDT Source: [employer] Document Id: [id number] CDT!29 Lauren Venegas Psy.D.Rob - 06/09/2011 12:00 AM CDT PROGRESS/PROCEDURE NOTE [...] TPL:see cc Electronically Signed By: LAUREN VENEGAS PsyD/ESTELLA On: 06/09/2011 11:26 AM Source: [facility] AM[facility]ICTAPHONESYS Document Id: [id number] Jerome Bernal M.D. - 06/09/2011 12:00 AM CDT PROGRESS/PROCEDURE NOTE Event Type: PROG Date of : 1990 DICTATED BY: Jerome Bernal MD DATE: 06/09/2011 IMPRESSION/REPORT/PLAN [place] 1: Major depressive disorder, recurrent. Attention-deficit hyperactivity disorder. [place] 2: Antisocial personality traits. [place] 3: Low back pain. PLAN: C4-SP. Medication [...] at length about work and educational concerns. UT:florencia cc Electronically Signed By: JEROME BERNAL MD On: 06/19/2011 08:54 AM Source: [facility] AMCDICTAPHONESYS Document Id: [id number] Lauren Venegas Psy.D., L.P. - 06/09/2011 12:00 AM CDT PROGRESS/PROCEDURE NOTE Event Type: PROG Date of : 1990 DICTATED BY: Lauren Venegas PsyD, LP DATE: 06/09/2011 ASSESSMENT: [place] 1: Major depression, recurrent, moderate. Attention deficit hyperactivity disorder, combined type. Adjustment disorder, not otherwise specified. [place] 2: Antisocial traits and features. PLAN: Continue [...] of her current cognitive skills and abilities. ALY:imelda cc Electronically Signed By: LAUREN VENEGAS PsyD/ESTELLA On: 06/10/2011 08:50 AM Source: [facility] AMCDICTAPHONESYS Document Id: [id number] Lauren Venegas Psy.D., Junior.PMayur - 06/09/2011 12:00 AM CDT PROGRESS/PROCEDURE NOTE Event Type: PROG Date of : 1990 DICTATED BY: Lauren Venegas PsyD, LP DATE: 06/09/2011 IMPRESSION/REPORT/PLAN ASSESSMENT: [place] 1: Major depression, recurrent, moderate. Attention deficit/hyperactivity [...] dependency counselors; guidance counselors; psychologist; chiropractors; hospital marketing administrator; automotive refinish technician; and riveter portable machine. PHYSICAL EXAMINATION The patient was cooperative in completing this measure. She was given a copy of this measure and the results by her nurse. ALY:sal cc Electronically Signed By: LAUREN VENEGAS On: 06/10/2011 12:50 PM Source: [facility] AM[facility]APHONESYS Document Id: [id number] Greg Esposito L.I.C.S.W. - 06/08/2011 12:00 AM CDT PROGRESS/PROCEDURE NOTE Event Type: PROG Date of : 1990 DICTATED BY: WALE Ross DATE: 06/08/2011 IMPRESSION/REPORT/PLAN [place] 1: Major depressive disorder, recurrent. Attention deficit hyperactivity disorder, by history. [place] 2: Deferred. PLAN: The patient will follow her treatment plan while on this unit. HISTORY OF PRESENT ILLNESS The patient was present for this 60-minute inpatient group psychotherapy session coded [id number]. She was one of 10 attendees for [...] not verbalize any suicidal or homicidal thoughts. BINA:jill cc Electronically Signed By: GREG ESPOSITO [facility] On: 06/09/2011 07:25 am Source: [facility] AMCDICTAPHONESYS Document Id: [id number] Chun Masterson D.O. - 06/08/2011 12:00 AM CDT PROGRESS/PROCEDURE NOTE Event Type: PROG Date of : 1990 DICTATED BY: Chun Masterson DO DATE: 06/08/2011 IMPRESSION/REPORT/PLAN ASSESSMENT/DIAGNOSIS: Patient invested in improving her sleep symptoms. Discussed this at length with the patient today. The patient also seems motivated for outpatient treatment. DSM-IV FORMULATION: [place] 1: Major depressive disorder, recurrent. Attention-deficit hyperactivity disorder by history. History of polysubstance abuse including cocaine and ecstasy. [place] 2: Deferred. [place] 3: Low back pain. PLAN: 1. Will [...] patient denies any suicidal or homicidal ideation. ZEYNEP:jermain cc Electronically Signed By: CHUN MASTERSON DO On: 06/08/2011 04:19 pm Source: [facility] AMCDICTAPHONESYS Document Id: [id number] Greg Esposito L.I.C.S.W. - 06/07/2011 12:00 AM CDT PROGRESS/PROCEDURE NOTE Event Type: PROG Date of : 1990 DICTATED BY: WALE Ross DATE: 06/07/2011 IMPRESSION/REPORT/PLAN [place] 1: Major depressive disorder, recurrent. Attention deficit hyperactivity disorder, by history. [place] 2: Deferred. PLAN: The patient will follow her treatment plan while on this unit. HISTORY OF PRESENT ILLNESS The patient was present for this 60-minute inpatient group psychotherapy session coded [id number]. She was one of 10 attendees for [...] Marilou cc Electronically Signed By: GREG ESPOSITO [facility] On: 06/08/2011 08:30 am Source: [facility]ON[facility]YS Document Id: [id number] Chun Masterson D.O. - 06/07/2011 12:00 AM [...] melatonin 6 mg at bedtime. DSM-IV FORMULATION: [place] 1: Major depressive disorder, recurrent. Attention deficit hyperactivity disorder, by history. [place] 2: Deferred. [place] 3: Low back pain. PLAN: 1. Will [...] several different topics with the patient. Ms Read states that she developed thoughts of suicide [...] MASTERSON DO On: 06/08/2011 09:17 am Source: [facility] Document Id: [id number] Mariama Bolanos O.T. - 06/06/2011 1:48 PM [...] BOLANOS OTR - 06/06/2011 13:48 CDT Source: [facility] POWERCHART Document Id: [id number] CDT!26 Mariama Bolanos O.T. - 06/06/2011 12:00 AM CDT PROGRESS/PROCEDURE NOTE Event Type: PROG Date of : 1990 DICTATED BY: Mariama BolanosKEISHA [place]# [id number] DATE: 06/06/2011 PRIMARY DIAGNOSIS: The patient has [...] got in trouble. I was expelled from [employer], so I attended [employer]. I graduated from there. I started medications for my back pain, and I think medications are making me feel depressed and suicidal. I felt this way one time before when I was given Celexa. The patient was assessed at [facility] Emergency Department secondary to an episode of feeling suicidal and sad. The patient had a plan to cut herself with a box repairer. The patient was transferred to the Psychiatric Services Unit for further evaluation and treatment. BACKGROUND INFORMATION: The patient is a 21-year-old female, currently residing with her father, her father's girlfriend, the patient's boyfriend, Terrence and the patient's 23-year-old brother in [place], [place]. The patient reported she has been with Terrence for approximately one year. No children. The patient reported she has 2 brothers, ages 33 years old and 23 years old. The patient has a 20-year-old sister. The patient's mother lives in [place]. The patient reported she and her father's girlfriend do not get along. HIGHEST GRADE COMPLETED: The patient graduated from [employer]. The patient reported she would like to go to college. However, it is scary. I know I have to grow up and be responsible. I would like to be a membership counselor. My parents have always told me what I need to do. Now, I need to figure it out. WORK: The patient reported she worked at [employer] for approximately 4 months. 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 The patient reported she works between 8 and 10 hours. The patient stated, I am thinking about quitting because of there are harassment issues between me and the lady that oversees all the temporary worker. My dad works at [employer]. The patient reported she has not worked [...] has adequate income. The patient has a hook up driver's permit, but not a license. SOCIAL [...] helping animals and wants to be a membership counselor. 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 While the patient is in the [...] MARIAMA BOLANOS On: 06/12/2011 08:50 AM Source: [facility] AMCDICTAPHONESYS Document Id: [id number] documented in this encounter H&P Notes Jerome Bernal M.D. - 06/05/2011 12:00 AM CDT DISCHARGE SUMMARY Event Type: ADM Date of : 1990 DICTATED BY: Jerome Bernal MD DATE OF SERVICE: 06/05/2011 IMPRESSION/REPORT/PLAN [place] 1: Major depressive disorder recurrent. Attention-deficit hyperactivity disorder by history. [place] 2: Deferred. [place] 3: Low back pain. [place] 4: Severity of psychosocial stressors: Low back pain, unemployment, financial concerns. [place] 5: Current GAF 10. PLAN: Admit to [...] is a 21-year-old, single, female residing in [place], [place]. CHIEF COMPLAINT/REASON FOR VISIT It was a suicide threat last night. HISTORY OF PRESENT ILLNESS This is the first [facility] Psychiatric Services Unit admission for this woman. [...] goes on to state, I got a box repairer and threatened to kill myself. The patient [...] condition worse. She states, I got a box repairer and threatened to kill myself. She denies [...] Ibuprofen 800 mg t.i.d. p.r.n. ALLERGIES: Naprosyn. Cszk-omo-gglbnxr medication use: Vitamins. Alcohol use: Denied. Illegal [...] SOCIAL HISTORY The patient was born in [place], [place]. She has two half brothers and a half sister. Father works at [employer] as a atomic welder. Mother works at [employer]. They are . The patient believes they [...] extracurricular activities. She was involved with the [employer] in [place] from which she graduated on 03/03/2011. HOBBIES [...] reactive. Gait and station within normal limits. UT:jarrod cc Electronically Signed By: JEROME BERNAL MD On: 06/19/2011 08:55 AM Source: [facility] AMCDICTAPHONESYS Document Id: [id number] documented in this encounter Consult Notes Conversion, [...] PSY.D., LP On: 06/10/2011 07:57 AM Source: [facility] AMCD[facility]APHONESYS Document Id: [id number] Conversion, Historical Provider Ser - 06/06/2011 12:00 AM CDT INPATIENT PSYCH HISTORY Event Type: CON Date of : 1990 DICTATED BY: Sydni Anderson PsyD DATE: 06/06/2011 IDENTIFYING INFORMATION: The patient is a 21-year-old, female from [place], [place]. She does not have a guardian. PRESENTING PROBLEM: The patient reports that she was prescribed nortriptyline for some back problem. Since she started taking this, she felt like nobody cared and that she was extremely bored. She reports she thinks that the depression increased because of this. She threatened to slit her neck with a box repairer, and her boyfriend took it away from [...] The patient denied having a therapist or family caseworker. She denied being in residential or foster [...] were turned in. She was born in [place] and raised in [place] and [place]. Her parents were when she was 11, which she took pretty badly. She reports she was picked on in high school quite a bit. The patient has two half brothers and one sister. Her mother works for [employer] and her father works for [employer] as a atomic welder. EDUCATION/EMPLOYMENT HISTORY: The patient has been working at [employer] since February 2011. Previously, she worked at [employer]. She reports she graduated high school and is thinking about going to college to be a membership counselor. She is not sure where to go [...] them. She denied any stockpiles of medications. SPIRITUALITY/TAOIST BELIEFS: The patient denied any adventism beliefs. COLLATERAL INFORMATION: I spoke with the patient's boyfriend, Terrence Keating (phone number is [phone]). He thinks she has been doing well [...] PSY.D., LP On: 06/11/2011 08:42 AM Source: [facility] AMCDICTAPHONESYS Document Id: [id number] documented in this encounter Nursing Notes Juana Campoverde R.N. - 06/10/2011 5:01 PM CDT Patient was discharged to home with her family. Discharge instructions were given and all of her belongings were returned to her. Electronically Signed By: JUANA ARMANDO RN On: 06/10/2011 05:03 pm Source: [employer] Document Id: [id number] Kaylene Louis R.N. - 06/10/2011 12:57 AM CDT pt note Now asleep. Electronically Signed By: KAYLENE LOUIS RN On: 06/10/2011 00:57 am Source: [employer] Document Id: [id number] Pawel Andrews R.N. - 06/09/2011 3:21 PM [...] suicidal with a plan to use a box repairer. Collateral information: Family meeting: Patient's mother and [...] Patient plans on scheduling appointment her own ACID RETORT OPERATOR appointments. Patient has a hook up driver'spermit, but does not have a hook up driver's licence. Therefore she relies on family for rides from [facility] appointments. 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 Because patient [...] ANDREWS RN On: 06/09/2011 03:52 pm Source: [facility] POWER[facility] Document Id: [id number] Feng Ortiz RMayurN. - 06/09/2011 6:29 AM CDT patient rested/slept all shift. offerred no complaints. Electronically Signed By: FENG ORTIZ RN On: 06/09/2011 06:29 am Source: [employer] Document Id: [id number] Juana Campoverde R.N. - 06/08/2011 9:07 PM CDT Patient has been pleasant and attended groups this evening. Has not offered any other complaints. Does have raised bumps on her left arm but says that they are not itching or burning. She says she will take care of it when I get home. Electronically Signed By: JUANA ARMANDO RN On: 06/08/2011 09:08 pm Source: [employer] Document Id: [id number] Pawel Andrews R.N. - 06/08/2011 2:55 PM CDT Patient noted some small raised bumps to her left forearm. Area is not red and patient denies any itching or burning. Patient states she does have sensitive skin to dyes, perfume and scents. Patient will show area to the psychiatrist. Electronically Signed By: PAWEL ANDREWS RN On: 06/08/2011 02:57 pm Source: [employer] Document Id: [id number] Feng Ortiz R.N. - 06/08/2011 5:02 AM CDT patient has been resting/sleeping all shift. has offerred no complaints. Electronically Signed By: FENG ORTIZ RN On: 06/08/2011 05:03 am Source: [employer] Document Id: [id number] Juana Campoverde R.N. - 06/07/2011 9:20 PM CDT Patient has been pleasant and went to groups this evening. She has also been interacting with otherpatients on the unit. She did receive Tylenol at 1915 for back pain rated a 10/10. Electronically Signed By: JUANA ARMANDO RN On: 06/07/2011 09:23 pm Source: [employer] Document Id: [id number] Juana Campoverde R.N. - 06/07/2011 8:25 PM CDT PRN Response PRN Response Entered On: 06/07/2011 20:25 CDT Performed On: 06/07/2011 20:25 CDT by JUANA ARMANDO RN PRN Medication Effectiveness Evaluation PRN Medication Effective: Yes JUANA ARMANDO RN - 06/07/2011 20:25 CDT Source: [employer] Document Id: [id number] CDT!3 Pawel Andrews R.N. - 06/07/2011 1:46 [...] ANDREWS RN On: 06/07/2011 01:55 pm Source: [employer] Document Id: [id number] Pawel Andrews R.N. - 06/07/2011 1:44 PM CDT PRN Response PRN Response Entered On: 06/07/2011 13:44 CDT Performed On: 06/07/2011 13:44 CDT by PAWEL ANDREWS RN PRN Medication Effectiveness Evaluation PRN Medication Effective: No Post Medication Pain Assessment: 10 PAWEL ANDREWS RN - 06/07/2011 13:44 CDT Source: [employer] Document Id: [id number] CDT!4 Feng Ortiz R.N. - 06/07/2011 6:28 AM CDT patient had a quiet night. denied any complaints. recieved ibuprofen 800 mg in the beginning of theshift for low back pain and she states this was effective. Electronically Signed By: FENG ORTIZ RN On: 06/07/2011 06:29 am Source: [employer] Document Id: [id number] Feng Ortiz RKameron - 06/07/2011 2:00 AM CDT PRN Response PRN Response Entered On: 06/07/2011 6:28 CDT Performed On: 06/07/2011 2:00 CDT by FENG ORTIZ RN PRN Medication Effectiveness Evaluation PRN Medication Effective: Yes FENG ORTIZ RN - 06/07/2011 6:28 CDT Source: [employer] Document Id: [id number] CDT!3 Kota Salinas R.N. - 06/06/2011 5:27 PM CDT investigator utility bill complaints appointment This repairer typewriter contacted Dr. Desouza's nurse and reviewed that [...] will need family to transport her from [facility] for the appointment therefore reported that she will contact the appointment desk Thursday morning prior to her appointment time for rescheduling. Electronically Signed By: KOTA SALINAS RN On: 06/06/2011 05:32 pm Source: [employer] Document Id: [id number] Kota Salinas R.N. - 06/06/2011 3:05 PM CDT PRN Response PRN Response Entered On: 06/06/2011 16:51 CDT Performed On: 06/06/2011 15:05 CDT by KOTA SALINAS RN PRN Medication Effectiveness Evaluation PRN Medication Effective: Yes Post Medication Pain Assessment: 0 KOTA SALINAS RN - 06/06/2011 16:51 CDT Source: [employer] Document Id: [id number] CDT!4 Aura Bhatti R.N. - 06/06/2011 2:42 PM CDT NURSING PT'S MOTHER MARIO WAS CONTACTED-SHE WILL BE BRINGING PT SOME ITEMS THIS EVENING. PT COMPLETED PAIN AND CPTII. PT QUIET/WITHDRAWN. PT HAS BEEN COOPERATIVE. Electronically Signed By: AURA BHATTI RN On: 06/06/2011 02:43 pm Source: [facility] Document Id: [id number] Feng Ortiz R.N. - 06/06/2011 1:07 AM CDT PRN Response PRN Response Entered On: 06/06/2011 1:07 CDT Performed On: 06/06/2011 1:07 CDT by FENG ORTIZ RN PRN Medication Effectiveness Evaluation PRN Medication Effective: Yes FENG ORTIZ RN - 06/06/2011 1:07 CDT Source: [facility] Document Id: [id number] CDT!3 Feng Ortiz R.N. - 06/06/2011 12:47 AM CDT patient here upin room upon my coming to speak with her.came from [facility]. mother was here with patient but [...] continue this while here. works for a [employer] plant in [place] named [employer] and has been unable to work recently [...] ORTIZ RN On: 06/06/2011 01:04 am Source: [employer] Document Id: [id number] Emmanuel Lo R.N. - 06/05/2011 10:32 PM CDT ED Pain Assessment ED Pain Assessment Entered On: 06/05/2011 22:32 CDT Performed On: 06/05/2011 22:32 CDT by EMMANUEL LO RN Pain Assessment Pain Symptoms: Yes EMMANUEL LO RN - 06/05/2011 22:32 CDT Pain Pain Assessment Grid Pain 1 Location: Lower back Intensity: 9 EMMANUEL LO RN - 06/05/2011 22:32 CDT Source: [employer] Document Id: [id number] CDT!8 Emmanuel Lo R.N. - 06/05/2011 9:08 PM CDT [...] Confirmation: Confirmed ; Classification: Medical ; Code: 621721 ; Contributor System: Edhub ; Last Updated: 06/03/2011 3:53 CDT ; Life CycleDate: 06/03/2011 ; Life Cycle Status: Active ; Responsible Provider: LAUREN STRINGER MD; Vocabulary: SNOMED CT Pain Neck Name of Problem: Pain Neck ; Onset Date: 07/2009 ; Classification: Medical ; Code: 1231 ; Contributor System: OWA_HPP_SYS ; Last Updated: 08/13/2009 18:00 TRANSFER PROFESSOR ; Life Cycle Date: 01/03/2010 ; Life Cycle Status: Active ; Vocabulary: ICD-9-CM Tobacco Abuse Name of Problem: Tobacco Abuse ; Onset Date: 07/2009 ; Classification: Medical ; Code:1231 ; Contributor System: OWA_HPP_SYS ; Last Updated: 08/13/2009 18:00 TRANSFER PROFESSOR ; Life Cycle Date: 01/03/2010 ; Life Cycle Status: Active ; Vocabulary: ICD-9-CM Diagnoses(Active) Psychiatric screening exam Date: 06/05/2011 20:50 CDT ; Diagnosis Type: Reason For Visit ; Confirmation: Complaint of ; Classification: Medical ; Clinical Service: Emergency medicine ; Code: PNED ; Probability: 0 ; Diagnosis Code: [id number] Triage Chief Complaint Description: Patient feeling depressed. States that she is suicidal and was going tocut her throat with a box repairer tonite when someone walked in on her.Mother [...] Others: No Time Placed Under Observation: 21:04 TRANSFER PROFESSOR Safety Refused Directions: No Safety Irritability: No [...] LO RN - 06/05/2011 21:08 CDT Source: [employer] Document Id: [id number] CDT!3 documented in this encounter ED Notes [...] for concerns of suicide risk. . Source: [facility] POWERCHART Document Id: [id number]} Emmanuel Lo R.N. - 06/05/2011 10:31 PM CDT ED Disposition [...] LO RN - 06/05/2011 22:31 CDT Source: [employer] Document Id: [id number] CDT!9 Emmanuel Lo RDacia. - 06/05/2011 8:50 PM CDT ED Triage Assessment ED Triage Assessment Entered On: 06/05/2011 20:52 CDT Performed On: 06/05/2011 20:50 CDT by EMMANUEL LO RN Reason For Visit Problems(Active) ADHD - Attention deficit disorder with hyperactivity Name of Problem: ADHD - Attention deficit disorder with hyperactivity ; Recorder: LAUREN STRINGER MD; Confirmation: Confirmed ; Classification: Medical ; Code: 588713 ; Contributor System: Edhub ; Last Updated: 06/03/2011 3:53 CDT ; Life CycleDate: 06/03/2011 ; Life Cycle Status: Active ; Responsible Provider: LAUREN STRINGER MD; Vocabulary: SNOMED CT Pain Neck Name of Problem: Pain Neck ; Onset Date: 07/2009 ; Classification: Medical ; Code: 1231 ; Contributor System: OWA_HPP_SYS ; Last Updated: 08/13/2009 18:00 TRANSFER PROFESSOR ; Life Cycle Date: 01/03/2010 ; Life Cycle Status: Active ; Vocabulary: ICD-9-CM Tobacco Abuse Name of Problem: Tobacco Abuse ; Onset Date: 07/2009 ; Classification: Medical ; Code:1231 ; Contributor System: OWA_HPP_SYS ; Last Updated: 08/13/2009 18:00 TRANSFER PROFESSOR ; Life Cycle Date: 01/03/2010 ; Life Cycle Status: Active ; Vocabulary: ICD-9-CM Diagnoses(Active) Psychiatric screening exam Date: 06/05/2011 20:50 CDT ; Diagnosis Type: Reason For Visit ; Confirmation: Complaint of ; Classification: Medical ; Clinical Service: Emergency medicine ; Code: PNED ; Probability: 0 ; Diagnosis Code: [id number] Triage Chief Complaint Description: Patient depressed and feeling suicidal. Wanted to cut her trhoat tonitewith a boxcutter. Mode of Arrival ED: Private vehicle, Ambulatory Track: Medical EMMANUEL LO RN - 06/05/2011 20:50 CDT Pain Assessment Pain Symptoms: No EMMANUEL LO RN - 06/05/2011 20:50 CDT JENA JENA Level 1: No JENA Level 2: Yes EMMANUEL LO RN - 06/05/2011 20:50 CDT DCP GENERIC CODE Tracking Acuity: 2 -Emergent Tracking Group: [facility] ED/ EMMANUEL LO RN - 06/05/2011 20:50 CDT Allergy Allergies (Active) naproxen Estimated Onset Date: Unspecified ; Reactions: ITCHING ; Created By: Contributor_systemANNALISA_ANNA; Reaction Status: Active ; Category: Drug ; Substance: naproxen ; Type: Unknown ; Severity: <not entered> ID Screen Travel Within Last 14 Days: No EMMANUEL LO RN - 06/05/2011 20:50 CDT Source: [employer] Document Id: [id number] CDT!15 documented in this encounter Miscellaneous Notes Restricted notes were excluded Miscellaneous - Juana Campoverde R.N. - 06/10/2011 5:05 PM CDT Inpatient Patient Education The following Patient Education Materials have been given to the patient: Patient Education Materials: No instructions were provided. No instructions were provided. Source: [employer] Document Id: [id number] Miscellaneous - Juana Campoverde R.N. - 06/10/2011 [...] ARMANDO RN - 06/10/2011 16:16 CDT Source: [facility] [employer] Document Id: [id number] CDT!50 Barbara Lucas R.N. - 06/10/2011 10:30 [...] SWAIN RN - 06/10/2011 10:30 CDT Source: [employer] Document Id: [id number] CDT!14 Barbara Lucas R.N. - 06/10/2011 10:29 [...] SWAIN RN - 06/10/2011 10:29 CDT Source: [employer] Document Id: [id number] CDT!36 Miscellaneous - Barbara Swain R.N. - 06/10/2011 9:06 AM CDT Inpatient Patient Education The following Patient Education Materials have been given to the patient: Patient Education Materials: No instructions were provided. No instructions were provided. [facility] Id: [id number] Electronically signed by Conversion, [facility] Hat Blocking Operator [id number] at 03/01/2017 2:01 PM CDT Miscellaneous - Barbara Swain R.N. - 06/10/2011 9:02 AM CDT Inpatient Patient Education The following Patient Education Materials have been given to the patient: Patient Education Materials: No instructions were provided. No instructions were provided. Source: [employer] Document Id: [id number] Electronically signed by Conversion, [facility] Hat Blocking Operator [id number] at 03/01/2017 2:01 PM CDT Miscellaneous - Jerome Bernal M.D. - 06/10/2011 9:00 AM CDT Inpatient Patient Education The following Patient Education Materials have been given to the patient: Patient Education Materials: No instructions were provided. No instructions were provided. Source: [employer] Document Id: [id number] Electronically signed by Conversion, [facility] Hat Blocking Operator [id number] at 03/01/2017 2:01 PM CDT Patricia - [...] LOUIS RN - 06/10/2011 0:56 CDT Source: [facility] [employer] Document Id: [id number] CDT!6 Patricia - Kaylene Louis R.N. - [...] LOUIS RN - 06/10/2011 0:55 CDT Source: [employer] Document Id: [id number] CDT!7 Patricia - Juana Campoverde R.N. - [...] ARMANDO RN - 06/09/2011 19:32 CDT [facility] Document Id: [id number] CDT!14 Miscellaneous - Juana Campoverde R.N. - [...] ARMANDO RN - 06/09/2011 17:29 CDT Source: [facility] [employer] Document Id: [id number] CDT!51 Marycellaneous - Jerome Bernal M.D. - 06/09/2011 10:54 AM CDT Inpatient Patient Education The following Patient Education Materials have been given to the patient: Patient Education Materials: No instructions were provided. No instructions were provided. [facility] Document Id: [id number] Electronically signed by [facility] Hat Blocking Operator [id number] at 03/01/2017 2:01 PM CDT Miscellaneous - Pawel Andrews R.N. - 06/09/2011 9:16 [...] CDT Nutrition Eating Difficulties: None Appetite: Excellent THUNSTEDT, PAWEL A RN - 06/09/2011 9:16 CDT Stephan Sensory [...] ANDREWS RN - 06/09/2011 9:16 CDT [facility] Document Id: [id number] CDT!80 Miscellaneous - Pawel Andrews R.N. - 06/09/2011 9:15 AM CDT Adult Activities [...] ANDREWS RN - 06/09/2011 9:15 CDT [facility] Document Id: [id number] CDT!18 Feng Neville RMayurN. - 06/09/2011 12:49 AM CDT Adult Activities [...] ORTIZ RN - 06/09/2011 0:49 CDT Source: [facility] [employer] Document Id: [id number] CDT!9 Feng Neville, R.N. - 06/09/2011 12:48 AM CDT Adult Ongoing [...] ORTIZ RN - 06/09/2011 0:48 CDT Source: [employer] Document Id: [id number] CDT!4 Miscellaneous - Juana Campoverde RKameron - 06/08/2011 4:14 PM CDT Adult Ongoing [...] ARMANDO RN - 06/08/2011 16:14 CDT [facility] Document Id: [id number] CDT!51 Miscellaneous - Juana Campoverde R.N. - [...] ARMANDO RN - 06/08/2011 19:22 CDT Source: [facility] [employer] Document Id: [id number] CDT!14 Miscellaneous - Pawel Andrews R.N. - [...] steps Fall Risk Score Hendrich II: 0 PWAEL ANDREWS RN - 06/08/2011 10:05 CDT Education General Patient Education Powergrid Topics: Other: Nursing Take Five Individuals Taught: Patient Barriers to Learning: None evident Teaching Method: Explanation Teaching Evaluation: Verbalizes understanding Comments (Comment: Patient reports she slept well last night with the melatonin. [PAWEL ANDREWS RN - 06/08/2011 10:05 CDT] ) PAWEL ANDREWS RN - 06/08/2011 10:05 CDT Source: [employer] Document Id: [id number] CDT!79 Patricia - Pawel Andrews R.N. - [...] ANDREWS RN - 06/08/2011 10:04 CDT Source: [employer] Document Id: [id number] CDT!18 Feng Neville R.N. - 06/08/2011 5:03 AM CDT Adult Activities [...] ORTIZ RN - 06/08/2011 5:03 CDT Source: [employer] Document Id: [id number] CDT!9 Patricia - Feng Ortiz RMayurNMayur - 06/08/2011 5:03 AM CDT Adult Ongoing [...] ORTIZ RN - 06/08/2011 5:03 CDT Source: [employer] Document Id: [id number] CDT!4 Patricia - Juana Campoverde R.N. - 06/07/2011 4:04 PM CDT Adult Activities [...] ARMANDO RN - 06/07/2011 20:24 CDT Source: [employer] Document Id: [id number] CDT!14 Miscellaneous - Juana Campoverde R.N. - [...] ARMANDO RN - 06/07/2011 15:52 CDT Source: [facility] POWERCHART Document Id: [id number] CDT!51 Miscellaneous - Pawel Andrews R.N. - [...] ANDREWS RN - 06/07/2011 13:42 CDT Source: [employer] Document Id: [id number] CDT!17 Miscellaneous - Pawel Andrews R.N. - 06/07/2011 1:33 PM CDT [...] ANDREWS RN - 06/07/2011 13:33 CDT Source: [employer] Document Id: [id number] CDT!50 Miscellaneous - Feng Ortiz RMayurN. - [...] ORTIZ RN - 06/07/2011 6:27 CDT Source: [employer] Document Id: [id number] CDT!4 Marycellwilbur - Feng Ortiz RKameron - 06/07/2011 6:27 [...] ORTIZ RN - 06/07/2011 6:27 CDT Source: [employer] Document Id: [id number] CDT!9 Marycellwilbur - Kota Salinas RKameron - 06/06/2011 9:27 [...] apparent problem Stephan Score: 22 KOTA SALINAS [place] - 06/06/2011 21:27 CDT Hendrich II Fall [...] SALINAS RN - 06/06/2011 21:27 CDT Source: [facility] [employer] Document Id: [id number] CDT!61 Patricia - Kota Salinas R.N. - [...] SALINAS RN - 06/06/2011 16:58 CDT Source: [facility] [employer] Document Id: [id number] CDT!16 Patricia - Aura Bhatti R.N. - [...] BHATTI RN - 06/06/2011 14:38 CDT Source: [employer] Document Id: [id number] CDT!13 Miscellaneous - Aura Bhatti R.N. - [...] of balance with steps Fall Risk Score Jason II: 2 AURA BHATTI RN - 06/06/2011 14:36 CDT Education General Patient Education Powergrvt Topics: Other: TAKE 5- PT IRRITABLE- AURA BHATTI RN - 06/06/2011 14:36 CDT Source: [employer] Document Id: [id number] CDT!41 Patricia - Feng Ortiz R.N. - 06/06/2011 12:45 AM CDT Basic Admission Information Basic Admission Information Entered On: 06/06/2011 0:46 CDT Performed On: 06/06/2011 0:45 CDT by FENG ORTIZ RN Vital Signs Temperature Core: 36.7C(Converted to: 98.1DegF) Peripheral Pulse Rate: 98/min Systolic Blood Pressure: 108mmHg Diastolic Blood Pressure: 57mmHg NIBP Mean: 74mmHg FENG ORTIZ RN - 06/06/2011 0:45 CDT Allergy Rule [...] ORTIZ RN - 06/06/2011 0:45 CDT Source: [employer] Document Id: [id number] CDT!9 Feng Neville R.N. - 06/06/2011 12:26 [...] FENG ORTIZ RN - 06/06/2011 0:26 CDT [place] Coma Eye Opening Response Alicia: Spontaneously Best Verbal Response Alicia: Oriented Best Motor Response Alicia: Obeys simple commands [place] Coma Score: 15 FENG ORTIZ RN - [...] ORTIZ RN - 06/06/2011 0:26 CDT Source: [employer] Document Id: [id number] CDT!4 Miscellaneous - Feng Ortiz RKameron - 06/06/2011 12:17 AM CDT Adult Admission History Adult Admission History Entered On: 06/06/2011 0:21 CDT Performed On: 06/06/2011 0:17 CDT by FENG ORTIZ RN General Info Preferred Name: emiliano Mode of Arrival: Ambulatory Accompanied By: Mother Chief Complaint: depressed, stressed, trying to decide on job/college Preferred Communication Mode: Verbal Information Given By: Patient Languages: Faroese FENG ORTIZ RN - 06/06/2011 0:17 CDT Allergy Allergies (Active) naproxen Estimated Onset Date: Unspecified ; Reactions: ITCHING ; Created By: Contributor_system, [employer]; Reaction Status: Active ; Category: Drug ; Substance: naproxen ; Type: Unknown ; Severity: <not entered> ; Updated By: Contributor_system AU_HX_SYS; Reviewed Date: 06/05/2011 21:21 CDT Problem List/Diagnoses Problems(Active) ADHD - Attention deficit disorder with hyperactivity Name of Problem: ADHD - Attention deficit disorder with hyperactivity ; Recorder: LAUREN STRINGER MD; Confirmation: Confirmed ; Classification: Medical ; Code: 633447 ; Contributor System: Edhub ; Last Updated: 06/03/2011 3:53 CDT ; Life CycleDate: 06/03/2011 ; Life Cycle Status: Active ; Responsible Provider: LAUREN STRINGER MD; Vocabulary: SNOMED CT Pain Neck Name of Problem: Pain Neck ; Onset Date: 07/2009 ; Classification: Medical ; Code: 1231 ; Contributor System: [employer]_HPP_SYS ; Last Updated: 08/13/2009 18:00 TRANSFER PROFESSOR ; Life Cycle Date: 01/03/2010 ; Life Cycle Status: Active ; Vocabulary: ICD-9-CM Tobacco Abuse Name of Problem: Tobacco Abuse ; Onset Date: 07/2009 ; Classification: Medical ; Code:1231 ; Contributor System: OWA_HPP_SYS ; Last Updated: 08/13/2009 18:00 TRANSFER PROFESSOR ; Life Cycle Date: 01/03/2010 ; Life Cycle Status: Active ; Vocabulary: ICD-9-CM Diagnoses(Active) Psychiatric screening exam Date: 06/05/2011 20:50 CDT ; Diagnosis Type: Reason For Visit ; Confirmation: Complaint of ; Classification: Medical ; Clinical Service: Emergency medicine ; Code: PNED ; Probability: 0 ; Diagnosis Code: [id number] Nutrition Nutrition Risk Factors by History Adult: [...] ORTIZ RN - 06/06/2011 0:17 CDT Source: [facility] [employer] Document Id: [id number] CDT!37 Miscellaneous - Feng Ortiz RMayurNMayur - [...] Steady Swallowing Difficulty/Aspiration Risk: None FENG ORTIZ [place] - 06/06/2011 0:14 CDT Alicia Coma Eye Opening Response Alicia: Spontaneously Best Verbal Response [place]: Oriented Best Motor Response [place]: Obeys simple commands Alicia Coma Score: 15 FENG ORTIZ [place] - 06/06/2011 0:14 CDT Psycho/Emotional Pain Symptoms: Yes Affect/Behavior: Agitated, Anxious, Appears depressed, Crying, Hostile, Inappropriate Feels Rested: No FENG ORTIZ [place] - 06/06/2011 0:14 CDT Coping Grid Identifies effective strategies: No Uses effective strategies: No Reports increase in psychological comfort: No Indicates sense of control: No Stressors perceived within control: No FENG ORTIZ [place] - 06/06/2011 0:14 CDT Psycho/Emotional Detailed Assessment: Yes FENG ORTIZ [place] - 06/06/2011 0:14 CDT Psycho/Emotional Detailed Hallucinations Present: None Orientation: Oriented x 3 FENG ORTIZ Gris CROSS - 06/06/2011 0:14 CDT Pain Pain Assessment Grid Pain 1 Location: Lower back FENG ORTIZ Gris CROSS - 06/06/2011 0:14 CDT Effects of Pain Grid Appetite: None Work/School: Severe FENG ORTIZ Gris CROSS - 06/06/2011 0:14 CDT Gastrointestinal GI Patient Stated Symptoms: None FENG ORTIZ Gris CROSS - 06/06/2011 0:14 CDT Genitourinary Patient Stated Symptoms: None FENG ORTIZ Gris CROSS - 06/06/2011 0:14 CDT Integumentary Integumentary Patient Stated Symptoms: None Skin Integrity: Intact FENG ORTIZ Gris CROSS - 06/06/2011 0:14 CDT Stephan Sensory Perception Stephan: No impairment Moisture Stephan: Rarely moist Activity Stephan: Walks frequently Mobility Stephan: No limitations Nutrition Stephan: Excellent FENG ORTIZ Gris CROSS - 06/06/2011 0:14 CDT Musculoskeletal Musculoskeletal Patient [...] ORTIZ RN - 06/06/2011 0:14 CDT Source: [employer] Document Id: [id number] CDT!62 Patricia - Feng Ortiz RKameron - 06/06/2011 12:13 [...] ORTIZ RN - 06/06/2011 0:13 CDT Source: [employer] Document Id: [id number] CDT!9 Marycellwilbur - Emmanuel Lo R.N. - 06/05/2011 10:32 PM CDT Valuables/Belongings Valuables/Belongings Entered On: 06/05/2011 22:32 CDT Performed On: 06/05/2011 22:32 CDT by EMMANUEL LO RN Valuables/Belongings Belongings Sent Home With: Upstairs with patient EMMANUEL LO RN - 06/05/2011 22:32 CDT Source: [employer] Document Id: [id number] CDT!3 Miscellwilbur - Kinjal Hood [facility] - 06/05/2011 10:32 PM CDT Facility Charge [...] with Diagnosis Control: 10 Lynx Visit Level: 52429 Level 4 KINJAL HOOD - 06/06/2011 8:45 CDT Source: [employer] Document Id: [id number] CDT!12 Miscellaneous - Emmanuel Lo R.N. - 06/05/2011 8:43 [...] LO RN - 06/05/2011 22:32 CDT Source: [employer] Document Id: [id number] CDT!8 documented in this encounter Plan of Treatment Not on filedocumented as of this encounter Visit Diagnoses Not on filedocumented in this encounter
--- OUTSIDE RECORDS SUMMARY | 2022-07-14 15:02 | XMS_ITS | Encounter Summary ---
:1990 Author Organization [facility] Address [address] [place] [address] Care Team Providers Name Role Phone Unavailable [...] PM Resu lts for this SPINE HIPS FURNACE LOADER procedure are i n the results section. 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 osteoporosis sc reening. 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 osteoporosis sc reening. Lumbar bone mineral density is in gms/sq uare centimeter: 1.306 Lumbar T-score is: 1.0 Z score is minor 0.1. Impression: WHO classification indicates normal. Left hip bone mineral density is in gms/ square centimeter: 1.043 T-score is 0.3 Z score is -0.6. Impression: WHO classification indicates normal. Correlation with FRAX score is recommend ed. Matilde Sotelo RMayurTMayur(R)(CT), R.T.(R) IMG DXA PROCEDURE S documented in this encounter Visit Diagnoses Not on filedocumented in this encounter Additional Health Concerns Assessment Noted Time PHQ-9 Depression Total Score: 5 10/14/2012 1:41 PM FURNACE LOADER documented as of this encounter
--- OUTSIDE RECORDS SUMMARY | 2022-07-14 15:02 | XMS_ITS | Encounter Summary ---
:[address] [facility] Address [address] [place] [address] Care Team Providers Name Role Phone Unavailable Primary Care Provider Unavailable Encounter Details Date Type Department Care Team Description 10/14/[address] [facility] [place] [facility] Germán Desouza D.O. Social History Tobacco Use Types Packs/Day Years Used Date Smoking Tobacco: Never Assessed Sex Assigned at Date Recorded Not on file documented as of this encounter Last Filed Vital Signs Vital Sign Reading Time Taken Comments Blood Pressure 126/74 10/14/2012 10:56 AM LEADERSHIP PROGRAM ASSOCIATE Pulse - - Temperature - - Respiratory Rate - - Oxygen Saturation - - Inhaled Oxygen Concentration - - Weight 107 kg (234 lb 12.6 oz) 10/14/2012 10:56 AM LEADERSHIP PROGRAM ASSOCIATE Height 163.5 cm (5' 4.37) 10/14/2012 10:56 AM LEADERSHIP PROGRAM ASSOCIATE Body Mass Index 39.84 10/14/2012 10:56 AM LEADERSHIP PROGRAM ASSOCIATE documented in this encounter Progress Notes Germán Desouza DRaji. - 10/14/2012 12:00 AM CST CLINIC NOTE Event Type: LE DICTATED BY: Germán Desouza, DATE: 10/14/2012 IMPRESSION/REPORT/PLAN ASSESSMENT: Gynecologic examination. PLAN: Pap smear was obtained. We will notify the patient of the results. Bone mineral density is ordered. Tetanus will be given today. The patient will also receive Depo injection today. HISTORY OF PRESENT ILLNESS The patient is a 22-year-old, 0 female who presents today for a AMBULATORY ANALYST exam. She has been using Depo-Provera for [...] patient denies depression. PHQ-9 score is 5. AMBULATORY ANALYST: Her last Pap was May 2010. She [...] to be within normal limits. [place] and [place] glands are normal. Vagina is pink. Normal rugae. Cervix is nulliparous. Uterus is anteverted, normal size. No adnexal masses are noted. RAP:aric cc: Electronically Signed By: GERMÁN DESOUZA DO On: 10/15/2012 03:23 PM Source: [facility] AMCDICTAPHONESYS Document Id: [id number] ERSHIP PROGRAM ASSOCIATE documented in this encounter Procedure Notes Ochoa Reyes L.P.NMayur - 10/14/2012 11:40 AM CST Depo-Provera Administration Document Has Been Updated Depo-Provera Administration Entered On: 10/14/2012 11:41 LEADERSHIP PROGRAM ASSOCIATE Performed On: 10/14/2012 11:40 LEADERSHIP PROGRAM ASSOCIATE by OCHOA REYES LPN Depo-Provera Administration Last Depo-Provera Given : 10/14/2012 LEADERSHIP PROGRAM ASSOCIATE Return appointment : 01/05/2013 CDT OCHOA REYES LPN - 10/14/2012 11:40 LEADERSHIP PROGRAM ASSOCIATE Depo-Provera Administration Comments : LOT#[id number] EXP OCHOA REYES LPN - 10/14/2012 11:46 LEADERSHIP PROGRAM ASSOCIATE Source: [facility] POWERCHART Document Id: [id number] ERSHIP PROGRAM ASSOCIATE documented in this encounter Miscellaneous Notes Miscellaneous - Germán Desouza D.O. - 10/18/2012 12:00 AM CST CORRESPONDENCE MR#: [id number] October 18, 2012 Yolanda Read [address] [place] [address] Dear Yolanda: I received the report of your most recent Pap smear. It is within normal limits. At this point, I would suggest a repeat in one year. If you have any questions, please feel free to contact us. Sincerely, Germán Desouza DO RAP:ksw Electronically Signed By: GERMÁN DESOUZA DO On: 10/18/2012 02:26 PM Source: [facility] AMCDICTAPHONESYS Document Id: [id number] ERSHIP PROGRAM ASSOCIATE Miscellaneous - Germán Desouza D.O. - 10/15/2012 12:00 AM CST CORRESPONDENCE MR#: [id number] October 15, 2012 Yolanda Read [address] [address] Dear Yolanda: I received the report and of your GC and chlamydia. They were both negative. If you have any questions, please feel free to contact us. Sincerely, Germán Desouza DO RAP:lks Electronically Signed By: GERMÁN DESOUZA DO On: 10/15/2012 04:05 PM Source: [facility] AMCDICTAPHONESYS Document Id: [id number] ERSHIP PROGRAM ASSOCIATE Miscellaneous - Ochoa Reyes L.P.NMayur - 10/14/2012 1:41 PM CST PHQ-9 PHQ-9 Entered On: 10/14/2012 13:41 LEADERSHIP PROGRAM ASSOCIATE Performed On: 10/14/2012 13:41 LEADERSHIP PROGRAM ASSOCIATE by OCHOA REYES LPN PHQ-9 Little interest [...] 5 OCHOA REYES LPN - 10/14/2012 13:41 LEADERSHIP PROGRAM ASSOCIATE Source: [facility] POWERCHART Document Id: [id number] ERSHIP PROGRAM ASSOCIATE Miscellaneous - Ochoa Reyes L.P.N. - 10/14/2012 10:56 AM CST Adult Medical Coding Manager Intake/History Adult Medical Coding Manager Intake/History Entered On: 10/14/2012 10:58 LEADERSHIP PROGRAM ASSOCIATE Performed On: 10/14/2012 10:56 LEADERSHIP PROGRAM ASSOCIATE by OCHOA REYES LPN Intake Chief Complaint [...] 39.84kg/m2 OCHOA REYES LPN - 10/14/2012 10:56 LEADERSHIP PROGRAM ASSOCIATE General Info Information Given By : Patient OCHOA REYES LPN - 10/14/2012 10:56 LEADERSHIP PROGRAM ASSOCIATE Subjective Pain Symptoms : No OCHOA REYES LPN - 10/14/2012 10:56 LEADERSHIP PROGRAM ASSOCIATE Dependent Habits Tobacco Use/Currently Using : Yes Smoking Status : Current every day smoker OCHOA REYES LPN - 10/14/2012 10:56 LEADERSHIP PROGRAM ASSOCIATE Tobacco Use Grid Cigarette Use Packs/Day : 0.5 OCHOA REYES LPN - 10/14/2012 10:56 LEADERSHIP PROGRAM ASSOCIATE Alcohol Use : No OCHOA REYES LPN - 10/14/2012 10:56 LEADERSHIP PROGRAM ASSOCIATE Caffeine Use Grid Caffeine Use : None Type : Soft drinks Frequency : Occasionally OCHOA REYES LPN - 10/14/2012 10:56 LEADERSHIP PROGRAM ASSOCIATE Recreational Drug Use Grid Frequency : Occasionally OCHOA REYES LPN - 10/14/2012 10:56 LEADERSHIP PROGRAM ASSOCIATE Allergy Allergies (Active) naproxen Estimated Onset Date: Unspecified ; Reactions: ITCHING ; Created By: Contributor_system, AU_HX_SYS; Reaction Status: Active ; Category: Drug ; Substance: naproxen ; Type: Unknown ; Severity: <not entered> ; Updated By: Contributor_system, AU_HX_SYS; Reviewed Date: 10/14/2012 10:56 LEADERSHIP PROGRAM ASSOCIATE Source: [facility] POWERCHART Document Id: [id number] ERSHIP PROGRAM ASSOCIATE Miscellaneous - Ochoa Reyes L.P.NMayur - 10/14/2012 10:56 AM CST Health Assessment Health Assessment Entered On: 10/14/2012 10:58 LEADERSHIP PROGRAM ASSOCIATE Performed On: 10/14/2012 10:56 LEADERSHIP PROGRAM ASSOCIATE by OCHOA REYES LPN Health Assessment Complete Health Assessment Complete or Modified : Annual Health Assessment Annual Health Assessment Completed : Yes OCHOA REYES LPN - 10/14/2012 10:56 LEADERSHIP PROGRAM ASSOCIATE Nutrition Nutrition Risk Factors by History Adult : None OCHOA REYES LPN - 10/14/2012 10:56 LEADERSHIP PROGRAM ASSOCIATE Functional Current Daily Living Assistance : None OCHOA REYES LPN - 10/14/2012 10:56 LEADERSHIP PROGRAM ASSOCIATE Dependent Habits Tobacco Use/Currently Using : Yes Smoking Status : Current every day smoker OCHOA REYES LPN - 10/14/2012 10:56 LEADERSHIP PROGRAM ASSOCIATE Tobacco Use Grid Cigarette Use Packs/Day : 0.5 OCHOA REYES LPN - 10/14/2012 10:56 LEADERSHIP PROGRAM ASSOCIATE Caffeine Use Grid Caffeine Use : Current Type : Soft drinks Frequency : Occasionally OCHOA REYES LPN - 10/14/2012 10:56 LEADERSHIP PROGRAM ASSOCIATE Recreational Drug Use Grid Frequency : Occasionally OCHOA REYES LPN - 10/14/2012 10:56 LEADERSHIP PROGRAM ASSOCIATE Psychosocial Domestic Abuse Concerns : None OCHOA REYES LPN - 10/14/2012 10:56 LEADERSHIP PROGRAM ASSOCIATE Advance Directive Advanced Directives : No OCHOA REYES LPN - 10/14/2012 10:56 LEADERSHIP PROGRAM ASSOCIATE Educ Needs Learning Style Preference Adult Grid Patient : None Family : None OCHOA REYES LPN - 10/14/2012 10:56 LEADERSHIP PROGRAM ASSOCIATE Source: [facility] POWERCHART Document Id: [id number] ERSHIP PROGRAM ASSOCIATE Miscellaneous - Germán Desouza D.O. - 10/14/2012 12:00 AM CST CORRESPONDENCE October 14, 2012 MR#: [id number] Yolanda Read [address] [id number] Dear Yolanda: I received the report from your bone mineral density. It was within normal limits. If you have any questions, please feel free to contact us. Sincerely, Germán Desouza DO RAP:dml Electronically Signed By: GERMÁN DESOUZA DO On: 10/14/2012 02:46 PM Source: [facility] AMCDICTAPHONESYS Document Id: [id number] ERSHIP PROGRAM ASSOCIATE documented in this encounter Plan of Treatment Not on filedocumented as of this encounter Procedures Procedure Name Priority Date/Time Associated Comments Diagnosis CHLAMYDIA/GONORRHOEAE Routine 10/14/2012 11:00 Re sults for this AMPLIFIED RNA AM LEADERSHIP PROGRAM ASSOCIATE procedure are in the results section. CHLAMYDIA TRACHOMATIS Routine 10/14/2012 11:00 Re sults for this AMPLIFIED RNA AM LEADERSHIP PROGRAM ASSOCIATE procedure are in the results section. documented in this encounter Results Chlamydia / Gonorrhoeae Amplified RNA (10/14/2012 11:00 AM LEADERSHIP PROGRAM ASSOCIATE) Component Value Ref Test Analysis Performed At [employer] Method Time Signature HX GC by Nucleic POWERCHART Acid Amplification HXFinal Negative for POWERCHART Neisseria gonorrhea by DNA amplification . HXFinal Reference: POWERCHART Negative Specimen (Source) Anatomical Collection Method Collection Time Re ceived Time Location / / Volume Laterality Cervix/Endocervix 10/14/2012 11:00 AM LEADERSHIP PROGRAM ASSOCIATE Germán Desouza D.O. LAB MICROBIOLOGY - GENERAL O RDERABLES Performing Organization Address City/State/ZIP Code Phon e Number POWERCHART Chlamydia Trachomatis Amplified RNA (10/14/2012 11:00 AM LEADERSHIP PROGRAM ASSOCIATE) Component Value Ref Test Analysis [facility]formed [facility] Method Time Signature HXChlamydia by POWERCHART Nucleic Acid Amplification HXFinal Negative for POWERCHART Chlamydia trachomitis by DNA amplification. HXFinal Reference: POWERCHART Negative Specimen (Source) Anatomical Collection Method Collection Time Re ceived Time Location / / Volume Laterality Cervix/Endocervix 10/14/2012 11:00 AM LEADERSHIP PROGRAM ASSOCIATE Germán Desouza D.O. LAB MICROBIOLOGY - GENERAL O RDERABLES Performing Organization Address City/State/ZIP Code Phon e Number POWERCHART documented in this encounter Visit Diagnoses Not on filedocumented in this encounter Additional Health Concerns Assessment Noted Time PHQ-9 Depression Total Score: 5 10/14/2012 1:41 PM LEADERSHIP PROGRAM ASSOCIATE documented as of this encounter
--- OUTSIDE RECORDS SUMMARY | 2022-07-14 15:02 | XMS_ITS | Encounter Summary ---
:1990 Author Organization [facility] Address [address] [place] [address] Care Team Providers Name Role Phone Unavailable Primary Care Provider Unavailable Encounter Details Date Type Department Care Team Description 10/19/2012 Hospital Encounter HX [facility] Anibal Isaacs APRN, C.N.P., [address] [place] [address] (Wo rk) Social History Tobacco Use Types Packs/Day Years Used Date Smoking Tobacco: Never Assessed Sex Assigned at Date Recorded Not on file documented as of this encounter Procedure Notes Shazia Garcia, L.P.N. - 10/19/2012 3:39 PM CST Ear Irrigation Ear Irrigation Entered On: 10/19/2012 15:39 ELECTRONICS SCALE TESTER Performed On: 10/19/2012 15:39 ELECTRONICS SCALE TESTER by SHAZIA GARCIA LPN Ear Irrigation Ear Irrigation Location : Bilateral Ear Irrigation Technique Used : Ear washer Ear Irrigation Solution Used : Warm water Patient's Tolerance/cooperation : WEell Ear Irrigation Results : Good Results Post irrigation ear canal evaluation : Patent Post Irrigation Tympanic Membrane Eval : Intact SHAZIA GARCIA LPN - 10/19/2012 15:39 ELECTRONICS SCALE TESTER Source: [facility] POWERCHART Document Id: [id number] TRONICS SCALE TESTER documented in this encounter Plan of Treatment Not on filedocumented as of this encounter Visit Diagnoses Not on filedocumented in this encounter Additional Health Concerns Assessment Noted Time PHQ-9 Depression Total Score: 5 10/14/2012 1:41 PM ELECTRONICS SCALE TESTER documented as of this encounter
--- OUTSIDE RECORDS SUMMARY | 2022-07-14 15:02 | XMS_ITS | Encounter Summary ---
:1990 Author Organization [facility] Address [address] [place] [address] Care Team Providers Name Role Phone Unavailable [...] Depression Total Score: 5 10/14/2012 1:41 PM BUS TROLLEY AND TAXI INSTRUCTOR documented as of this encounter
--- OUTSIDE RECORDS SUMMARY | 2022-07-14 15:02 | XMS_ITS | Encounter Summary ---
:1990 Author Organization [facility] Address [address] [place] [address] Care Team Providers Name Role Phone Unavailable Primary Care Provider Unavailable Encounter Details Date Type Department Care Team Description 11/03/2012 Hospital Encounter HX [facility] Anibal Isaacs APRN, C.N.P., [address] [place] [address] (Wo rk) Social History Tobacco Use Types Packs/Day Years Used Date Smoking Tobacco: Never Assessed Sex Assigned at Date Recorded Not on file documented as of this encounter Last Filed Vital Signs Vital Sign Reading Time Taken Comments Blood Pressure 124/53 11/03/2012 2:13 PM INTERNAL COMMUNICATIONS MANAGER Pulse 108 11/03/2012 2:13 PM INTERNAL COMMUNICATIONS MANAGER Temperature - - Respiratory Rate - - Oxygen Saturation - - Inhaled Oxygen Concentration - - Weight 104 kg (229 lb 4.5 oz) 11/03/2012 2:13 PM INTERNAL COMMUNICATIONS MANAGER Height 166 cm (5' 5.35) 11/03/2012 2:13 PM INTERNAL COMMUNICATIONS MANAGER Body Mass Index 37.74 11/03/2012 2:13 PM INTERNAL COMMUNICATIONS MANAGER documented in this encounter Progress Notes Anna Contreras, RyanNMayurP., R.N. - 11/03/2012 12:00 AM CST CLINIC NOTE Event Type: SV DICTATED BY: Anna Contreras NP DATE: 11/03/2012 IMPRESSION/REPORT/PLAN My impression is that the Adderall is working well. Will refill in the Adderall XR 30 mg one a day. She can call with any problems or questions. Risks and benefits of the medications were discussed. She can follow up again in 6 months. Call with any problems or questions. CHIEF COMPLAINT/REASON FOR VISIT Recheck on her ADD medicine. HISTORY OF PRESENT ILLNESS Yolanda presents today. She has been taking the Adderall XR 30 mg for the last month. She says that it is really helpful with her getting things in order. She has been trying to apply for some jobs. She is not going to school right now, but she says that it is helpful for her to get tasks done. She does not really drink any caffeine. She is not having a problem with palpitations. She is not having problems with significant appetite. It does not keep her awake at night. No dry mouth or dry mucous membranes. She said there are no significant mood changes and it does not make her cranky. PHYSICAL EXAMINATION GENERAL: She is a pleasant 22-year-old, who appears stated age. HEENT: Pupils are equal, reactive to light. Oropharynx is pink and moist. Teeth are in good repair. NECK: Supple. No lymphadenopathy. No thyromegaly. HEART: Regular rate and rhythm to her heart. No murmurs or extra heart sounds. LUNGS: Clear. [facility]:aric cc: Electronically Signed By: ANNA CONTRERAS CNP On: 11/04/2012 03:02 PM Source: [facility] AMCDICTAPHONESYS Document Id: [id number] RNAL COMMUNICATIONS MANAGER documented in this encounter Miscellaneous Notes Miscellaneous - Conversion, Historical Provider Ser - 02/02/2013 8:26 AM CDT General Message Document Contains Addenda Addendum by FARNAZ HUTCHISON on 02 Feb 2013 08:38:54 CDT Pt informed that it will be fine. From: SHARMILA VARGAS (KEVAN Cruz Information Security Engineer) To: KEVAN Cruz Nurse; Sent: 02/02/2013 08:26:02 CDT Subject: General Message Caller Name / Relationship Call Back # [phone] Reason for Call pt would like to know if she will be able to have blood drawn today at her appt at 10:00 Source: [facility] myinfoQ Document Id: [id number] Miscellaneous - Conversion, Historical Provider Ser - 12/15/2012 9:05 AM CDT General Message Document Contains Addenda Addendum by OLGA SOTELO RN on 15 December 2012 09:09:16 CDT calls about [facility] thought pharmacy would be closed if clinic closed. [facility] email indicates [facility]. 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 Encouraged Yolanda to call and inquire. Mom states the [facility] is closed and so they don't have a means of getting the medication. [facility] the [facility] and the script is ready for pick-up. From: KATIE MITCHELL ( Call Center Information Security Engineer) To: KEVAN Nurse Line; Sent: 12/15/2012 08:36:47 CDT Subject: General Message Caller Name/Relationship [facility] Facility/Wing Call Back # [phone] Reason For Call CALLING ABOUT MEDICATION Source: [facility] POWERCHART Document Id: [id number] Miscellaneous - Mari Gillis L.PMayurNMayur - 11/03/2012 2:13 PM CST Adult Speech Language Pathologist Prn Intake/History Adult Speech Language Pathologist Prn Intake/History Entered On: 11/03/2012 14:15 INTERNAL COMMUNICATIONS MANAGER Performed On: 11/03/2012 14:13 INTERNAL COMMUNICATIONS MANAGER by MARI GILLIS LPN Intake Chief Complaint : renewal meds Temperature Core : 36.6C(Converted to: 97.9DegF) Peripheral Pulse Rate : 108/min (HI) Systolic Blood Pressure : 124mmHg Diastolic Blood Pressure : 53mmHg NIBP Mean : 77mmHg BP Location : Left upper extremity Blood Pressure Cuff Size : Large Height : 166cm(Converted to: 5ft 5inch(es), 65.35inch(es)) Actual Weight : 104kg(Converted to: 229lb 4oz) Weight Source : Standing scale Dosing Weight Clinic : 104.00kg Clinic BSA : 2.19 Body Mass Index : 37.74kg/m2 MARI GILLIS LPN - 11/03/2012 14:13 INTERNAL COMMUNICATIONS MANAGER General Info Languages : Luxembourgish MARI GILLIS LPN - 11/03/2012 14:13 INTERNAL COMMUNICATIONS MANAGER Subjective Pain Symptoms : No MARI GILLIS LPN - 11/03/2012 14:13 INTERNAL COMMUNICATIONS MANAGER Dependent Habits Tobacco Use/Currently Using : Yes Exposure to Tobacco Smoke : Patient smokes Smoking Status : Current every day smoker MARI GILLIS LPN - 11/03/2012 14:13 INTERNAL COMMUNICATIONS MANAGER Tobacco Use Grid Cigarette Use Packs/Day : 0.5 MARI GILLIS LPN - 11/03/2012 14:13 INTERNAL COMMUNICATIONS MANAGER Caffeine Use Grid Caffeine Use : Current Type : Soft drinks Frequency : Occasionally MARI GILLIS LPN - 11/03/2012 14:13 INTERNAL COMMUNICATIONS MANAGER Recreational Drug Use Grid Frequency : Occasionally MARI GILLIS LPN - 11/03/2012 14:13 INTERNAL COMMUNICATIONS MANAGER Allergy Allergies (Active) naproxen Estimated Onset Date: Unspecified ; Reactions: ITCHING ; Created By: Contributor_system, BERNAHX_SYS; Reaction Status: Active ; Category: Drug ; Substance: naproxen ; Type: Unknown ; Severity: <not entered> ; Updated By: Contributor_system, ANNALISA_SYS; Reviewed Date: 11/03/2012 14:11 INTERNAL COMMUNICATIONS MANAGER [facility] Document Id: [id number] RNAL COMMUNICATIONS MANAGER documented in this encounter Plan of Treatment Not on filedocumented as of this encounter Visit Diagnoses Not on filedocumented in this encounter Additional Health Concerns Assessment Noted Time PHQ-9 Depression Total Score: 5 10/14/2012 1:41 PM INTERNAL COMMUNICATIONS MANAGER documented as of this encounter
--- OUTSIDE RECORDS SUMMARY | 2022-07-14 15:02 | XMS_ITS | Encounter Summary ---
:1990 Author Organization [facility] Address [address] [place] [address] Care Team Providers Name Role Phone Unavailable Primary Care Provider Unavailable Encounter Details Date Type Department Care Team Description 04/26/2013 Hospital Encounter [facility] Jason Orozco P.A. -C. [address] [place] [address] (Wo rk) Social History Tobacco Use Types Packs/Day Years Used Date Smoking Tobacco: Never Assessed Sex Assigned at Date Recorded Not on file documented as of this encounter Last Filed Vital Signs Vital Sign Reading Time Taken Comments Blood Pressure 110/72 04/26/2013 10:05 AM CDT Pulse 76 04/26/2013 10:05 AM CDT Temperature - - Respiratory Rate 18 04/26/2013 10:05 AM CDT Oxygen Saturation - - Inhaled Oxygen Concentration - - Weight 89.2 kg (196 lb 10.4 oz) 04/26/2013 10:05 AM CDT Height - - Body Mass Index 32.37 03/25/2013 4:30 PM CDT documented in this encounter Progress Notes Jason Orozco - 04/26/2013 10:00 AM CDT [id number] CHIEF COMPLAINT / REASON FOR VISIT Tenderness on the left side of the face. HISTORY OF PRESENT ILLNESS Patient states that in the past week she has had tenderness on the left side of the face. Patient dinesh smoker. She states that she has had some congestion also and some left earache. Patient mentioned that about a month ago she had a dog bite on the face and she did have surgical involvement to repairher face. She has been seeing Plastics. She denied any adhesions. Denied any trouble associated withthat. She did, however, mention that this current discomfort makes her think that maybe there is something wrong with the scar. She denied any dehiscence. Denied any bleeding. Denied any sore throat. She has had some congestion. Please refer to EMR for vitals, medications and allergies. PHYSICAL EXAMINATION GENERAL: This pleasant 22-year-old female, no appreciable distress. Alert and awake, responds appropriately to auditory and visual stimuli. Lungs are clear to auscultation. Ears bilaterally are normal. Pinna and tragus are not tender to movement. Eyes are normal. Sinuses do appear to be tender on the left side, frontal and maxillary region, to pressure and percussion bilaterally. Minimally tender anterior cervical nodes on the left side. Examination of the skin, patient does appear to have well-adhesed laceration repair on the face. I do not appreciate any dehiscence. No erythema. No fluctuance or any significant induration noted alongthe distribution of the scar. IMPRESSION / REPORT / PLAN Unspecified sinusitis. Plan: We are treating the patient with Augmentin 500/125 three times a day for 10 days. Recommend heat to the associated area, Tylenol for discomfort, ibuprofen for discomfort. Did recommend also recheck with PCP and Plastics if there is no improvement in the next 2 days. We did answer all her questions. Jason Orozco P.A.-C/isidra Electronically Signed By: JASON OROZCO V [facility] On: 04/29/2013 08:14 AM Source: [facility] MHSDOLBEYNONRADSYS Document Id: [id number] documented in this encounter Miscellaneous Notes Miscellaneous - Jason Orozco - 04/27/2013 8:14 AM CDT Ambulatory Depart Summary [address] [address] Visit Information Name: YOLANDA LEONEE [facility] Number: [id number] Visit Date: 04/27/2013 08:14:45 Attending Provider: JASON OROZCO Primary Care Provider: PCPDOUG YOLANDA LEONE has been given the following list of medications: Your Medications It is important to take your medications as directed. Use a pill box or chart to help remind you to take your medications. Please let your doctor or nurse know if you have problems taking your medications. Medication/Strength Dose Route Frequency Indications/Special Instructions/Comments/Notes amoxicillin-clavulanate (Augmentin 500 mg-125 mg oral tablet) 1 tab(s) Oral three times a day for 10Days dextroamphetamine-amphetamine (Adderall XR 30 mg oral capsule, [...] your provider for clarification. Additional Information: Source: [facility] POWERCHART Document Id: [id number] Miscellaneous - Jason Orozco - 04/27/2013 8:14 AM CDT Ambulatory Patient Summary [address] [address] Visit Information Name: YOLANDA LEONE [facility] Number: [id number] Current Date: 04/27/2013 08:14:46 Physicians Attending Provider: JASON OROZCO Primary Care Provider: PCPDOUG Your Medications Here is a list of your medications. It is important to take your medications as directed. Use a pillbox or chart to help remind you to take your medications. Please let your doctor or nurse know if you have problems taking your medications. Medication/Strength Dose Route Frequency Indications/Special Instructions/Comments/Notes amoxicillin-clavulanate (Augmentin 500 mg-125 mg oral tablet) 1 tab(s) Oral three times a day for 10Days dextroamphetamine-amphetamine (Adderall XR 30 mg oral capsule, [...] Time Location Reason Provider 06/27/2013 15:15 [facility] DEPARTMENT ADMINISTRATOR Depo shot [facility] DEPARTMENT ADMINISTRATOR Nurse 10/18/2013 09:35 [facility] DEPARTMENT ADMINISTRATOR slag wheeler exam Nicolasa Desouza DO Your Goals/Additional instructions: Source: [id number] Document Id: [id number] Miscellaneous - Jason Orozco - 04/26/2013 10:25 AM CDT School or Work Excuse School or Work Excuse Entered On: 04/26/2013 10:27 CDT Performed On: 04/26/2013 10:25 CDT by JASON OROZCO School or Work Excuse Date Patient Seen : 04/26/2013 CDT School or Work Restrictions : No Restrictions School Med Procedure Form Completed : N/A Date of Return to School/Work Without Restrictions : 04/26/2013 CDT Comment : pt may return to work today if afebrile, please call with questions JASON OROZCO - 04/26/2013 10:25 CDT Source: [id number] Document Id: [id number] CDT!7 Miscellaneous - Suzy Cerda L.P.N. - 04/26/2013 10:05 AM CDT Adult Chip Tuner Intake/History Adult Chip Tuner Intake/History Entered On: 04/26/2013 10:08 CDT Performed On: 04/26/2013 10:05 CDT by SUZY CERDA Intake Chief Complaint : Pt is having left ear pain, and burning and itching near incision site on left side of nose. Onset of Symptoms : x 1 week Temperature Oral : 36.9 DegC(Converted to: 98.4 DegF) Peripheral Pulse Rate : 76 /min Respiratory Rate : 18 /min Systolic Blood Pressure : 110 mmHg Diastolic Blood Pressure : 72 mmHg NIBP Mean : 85 mmHg BP Location : Right upper extremity Blood Pressure Cuff Size : Regular Actual Weight : 89.2 kg(Converted to: 196 lb 10 oz) Dosing Weight Clinic : 89.2 kg SUZY CERDA - 04/26/2013 10:05 CDT General Info Information Given By : Patient Preferred Communication Mode : Verbal Languages : Malawian SUZY CERDA - 04/26/2013 10:05 CDT Subjective Pain Symptoms : Yes SUZY CERDA - 04/26/2013 10:05 CDT Pain Pain Assessment Grid Pain 1 Pain 2 Location : Ear Nose SUZY CERDA - 04/26/2013 10:05 CDT SUZY CERDA - 04/26/2013 10:05 CDT Dependent Habits Tobacco Use/Currently Using : Yes Exposure to Tobacco Smoke : Patient smokes Smoking Status : Current every day smoker SUZY CERDA - 04/26/2013 10:05 CDT Tobacco Use Grid Cigarette Use Packs/Day : 0.5 SUZY CERDA - 04/26/2013 10:05 CDT Caffeine Use Grid Caffeine Use : Current Type : Soft drinks Frequency : Occasionally SUZY CERDA - 04/26/2013 10:05 CDT Recreational Drug Use Grid Frequency : Occasionally SUZY CERDA - 04/26/2013 10:05 CDT [facility] Document Id: [id number] CDT!41 documented in this encounter Plan of Treatment Not on filedocumented as of this encounter Visit Diagnoses Not on filedocumented in this encounter Additional Health Concerns Assessment Noted Time PHQ-9 Depression Total Score: 5 10/14/2012 1:41 PM CNC OPERATOR 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
--- OUTSIDE RECORDS SUMMARY | 2022-07-14 15:02 | XMS_ITS | Encounter Summary ---
:1990 Author Organization [facility] Address [address] [place] [address] Care Team Providers Name Role Phone Unavailable Primary Care Provider Unavailable Encounter Details Date Type Department Care Team Description 09/20/2013 Hospital Encounter HX [facility] JUVENAL LORA Provider, [place] Social History Tobacco Use Types Packs/Day Years Used Date Smoking Tobacco: Never Assessed Sex Assigned at Date Recorded Not on file documented as of this encounter Last Filed Vital Signs Vital Sign Reading Time Taken Comments Blood Pressure 120/72 09/20/2013 11:30 AM LETTER STAMPING MACHINE OPERATOR Pulse - - Temperature - - Respiratory Rate - - Oxygen Saturation - - Inhaled Oxygen Concentration - - Weight - - Height - - Body Mass Index - - documented in this encounter Procedure Notes Conversion, Historical Provider Ser - 09/20/2013 11:30 AM CST Depo-Provera Administration Depo-Provera Administration Entered On: 09/20/2013 11:30 LETTER STAMPING MACHINE OPERATOR Performed On: 09/20/2013 11:30 LETTER STAMPING MACHINE OPERATOR by JUDIE EVANS Depo-Provera Administration Annual Exam in the Past 12 Months : Yes Last Depo-Provera Given : 06/27/2013 CDT Needs test : No Depo-Provera Administration Comments : RETURN APPT: 12/06/13-12/20/13 JUDIE EVANS - 09/20/2013 11:30 LETTER STAMPING MACHINE OPERATOR Vitals/Ht/Wt Systolic Blood Pressure : 120 mmHg Diastolic Blood Pressure : 72 mmHg NIBP Mean : 88 mmHg BP Location : Right upper extremity Blood Pressure Cuff Size : Regular JUDIE EVANS - 09/20/2013 11:30 LETTER STAMPING MACHINE OPERATOR Source: [facility] POWERCHART Document Id: [id number] LETTER STAMPING MACHINE OPERATOR!12 documented in this encounter Plan of Treatment Not on filedocumented as of this encounter Visit Diagnoses Not on filedocumented in this encounter Additional Health Concerns Assessment Noted Time PHQ-9 Depression Total Score: 5 10/14/2012 1:41 PM LETTER STAMPING MACHINE OPERATOR documented as of this encounter
--- OUTSIDE RECORDS SUMMARY | 2022-07-14 15:02 | XMS_ITS | Encounter Summary ---
:1990 Author Organization [facility] Address [address] [place] [address] Care Team Providers Name Role Phone Unavailable Primary Care Provider Unavailable Encounter Details Date Type Department Care Team Description 05/03/2012 Hospital Encounter HX [facility] Nicolasa Toribio D.O. Social [...] PAL LPN - 05/03/2012 13:42 CDT Source: [facility] POWERCHART Document Id: [id number] documented in this encounter Plan of Treatment Not on filedocumented as of this encounter Visit Diagnoses Not on filedocumented in this encounter
--- OUTSIDE RECORDS SUMMARY | 2022-07-14 15:02 | XMS_ITS | Encounter Summary ---
:1990 Author Organization [facility] Address [address] [place] [address] Care Team Providers Name Role Phone Unavailable Primary Care Provider Unavailable Encounter Details Date Type Department Care Team Description 08/29/2011 Hospital Encounter HX [facility] Nicolasa Toribio D.O. Social History Tobacco Use Types Packs/Day Years Used Date Smoking Tobacco: Never Assessed Sex Assigned at Date Recorded Not on file documented as of this encounter Procedure Notes Miya Pal, L.P.N. - 08/29/2011 11:10 AM CST Depo-Provera Administration Depo-Provera Administration Entered On: 08/29/2011 11:11 CRUST SORTER Performed On: 08/29/2011 11:10 CRUST SORTER by MIYA PAL LPN Depo-Provera Administration Last Depo-Provera Given : 06/09/2011 CDT Return appointment : 11/17/2011 CRUST SORTER Depo-Provera Administration Comments : lot# [id number] /[id number] [id number] MIYA PAL LPN - 08/29/2011 11:10 CRUST SORTER Source: [facility] POWERCHART Document Id: [id number] CRUST SORTER!5 T SORTER documented in this encounter Plan of Treatment Not on filedocumented as of this encounter Visit Diagnoses Not on filedocumented in this encounter
--- OUTSIDE RECORDS SUMMARY | 2022-07-14 15:02 | XMS_ITS | Encounter Summary ---
:1990 Author Organization [facility] Address [address] [place] [address] Care Team Providers Name Role Phone Unavailable Primary Care Provider Unavailable Encounter Details Date Type Department Care Team Description 03/21/2011 Hospital Encounter [facility] Nicolasa Desouza D.O. Social History Tobacco Use Types Packs/Day Years Used Date Smoking Tobacco: Never Assessed Sex Assigned at Date Recorded Not on file documented as of this encounter Plan of Treatment Not on filedocumented as of this encounter Visit Diagnoses Not on filedocumented in this encounter
--- OUTSIDE RECORDS SUMMARY | 2022-07-14 15:02 | XMS_ITS | Encounter Summary ---
:1990 Author Organization [facility] Address [address] [place] [address] Care Team Providers Name Role Phone Unavailable Primary Care Provider Unavailable Encounter Details Date Type Department Care Team Description 05/03/2013 Hospital Encounter [facility] Jason Orozco P.A. -C. [address] [place] [address] (Wo rk) Social History Tobacco [...] Jason Orozco - 05/03/2013 11:37 AM CDT [id number] CHIEF COMPLAINT / REASON FOR VISIT I [...] of February by Dr. Jj Mota in [place]. Please refer to EMR for vitals, medications [...] Orozco P.A.-C/wolfgang Electronically Signed By: JASON OROZCO On: 05/06/2013 08:10 AM Source: [facility] MHSDOLBEYNONRADSYS Document Id: [id number] documented in this encounter Miscellaneous Notes Miscellaneous [...] JASON OROZCO - 05/03/2013 17:17 CDT [facility] Document Id: [id number] CDT!7 Miscellaneous - Jason Orozco - 05/03/2013 4:03 PM CDT Ambulatory Patient Summary [facility] [address] [place] [address] Visit Information Name: YOLANDA LEONE [facility] Number: [id number] Current Date: 05/03/2013 16:03:55 Physicians [...] Time Location Reason Provider 06/27/2013 15:15 [facility] SENIOR TELECOMMUNICATIONS CONSULTANT Depo shot DR DESOUZA [facility] SENIOR TELECOMMUNICATIONS CONSULTANT Nurse 10/18/2013 09:35 [facility] SENIOR TELECOMMUNICATIONS CONSULTANT environmental remediation engineer exam Nicolasa Desouza DO Your Goals/Additional instructions: Source: [facility] POWERCHART Document Id: [id number] Miscellaneous - Jason Orozco - 05/03/2013 4:03 PM CDT Ambulatory Depart Summary [address] [address] Visit Information Name: YOLANDA LEONE [facility] Number: [id number] Visit Date: 05/03/2013 16:03:54 Attending Provider: JASON OROZCO Primary Care Provider: PCP, UNASSIGNED - ALEXANDR [...] your provider for clarification. Additional Information: Source: [facility] [employer]CHART Document Id: [id number] Miscellaneous - Joao Doan L.P.N. - 05/03/2013 11:43 AM CDT Adult Branch Customer Service Representative Intake/History Adult Branch Customer Service Representative Intake/History Entered On: 05/03/2013 11:47 CDT Performed [...] Preferred Communication Mode : Verbal Languages : French JOAO DOAN - 05/03/2013 11:43 CDT Subjective [...] Occasionally JOAO DOAN 05/03/2013 11:43 CDT Source: [facility] [employer]CHART Document Id: [id number] CDT!34 documented in this encounter Plan of Treatment Not on filedocumented as of this encounter Visit Diagnoses Not on filedocumented in this encounter Additional Health Concerns Assessment Noted Time PHQ-9 Depression Total Score: 5 10/14/2012 1:41 PM HOME SERVICE CONSULTANT documented as of this encounter
--- OUTSIDE RECORDS SUMMARY | 2022-07-14 15:02 | XMS_ITS | Encounter Summary ---
:1990 Author Organization [facility] Address [address] [place] [address] Care Team Providers Name Role Phone Unavailable Primary Care Provider Unavailable Encounter Details Date Type Department Care Team Description 07/22/2012 Hospital Encounter HX [facility] Nicolasa Toribio D.O. Social History [...] : 07/22/2012 CDT Return appointment : 11/07/2012 PICTURE ENGRAVER Depo-Provera Administration Comments : lot#[id number] /[id number] 106.0KG MIYA PAL LPN - 07/22/2012 15:22 CDT Source: [facility] POWERCHART Document Id: [id number] documented in this encounter Plan of Treatment Not on filedocumented as of this encounter Visit Diagnoses Not on filedocumented in this encounter
--- OUTSIDE RECORDS SUMMARY | 2022-07-14 15:03 | XMS_ITS | Encounter Summary ---
:1990 Author Organization [facility] Address [address] [place] [address] Care Team Providers Name Role Phone Unavailable Primary Care Provider Unavailable Encounter Details Date Type Department Care Team Description 03/21/2011 Hospital Encounter HX [facility] AUNicolasa Bettencourt D.O. Social History Tobacco Use Types Packs/Day Years Used Date Smoking Tobacco: Never Assessed Sex Assigned at Date Recorded Not on file documented as of this encounter Plan of Treatment Not on filedocumented as of this encounter Visit Diagnoses Not on filedocumented in this encounter
--- OUTSIDE RECORDS SUMMARY | 2022-07-14 15:03 | XMS_ITS | Encounter Summary ---
:1990 Author Organization [facility] Address [address] [place] [address] Care Team Providers Name Role Phone Unavailable [...] Encounter - Conversion, Historical Provider Ser - 06/03/2011 10:20 AM CDT Phone Message Document Contains Addenda Addendum by ONI MORROW LPN on 06 June 2011 08:54:21 CDT this was faxed yesterday Addendum by CONRAD MERINO on 05 June 2011 14:38:45 CDT From: CONRAD MERINO ([facility] Rx Prior Auth) To: KEAVN Canas Nurse; Sent: 06/05/2011 14:38:45 CDT Subject: RE: Phone Message PA HAS BEEN SENT TO YOU. THANKS Addendum by ONI MORROW LPN on 05 June 2011 11:18:36 CDT From: ONI MORROW LPN ([facility] Nurse) To: [facility] Rx Prior Auth; Sent: 06/05/2011 11:18:36 CDT Subject: FW: Phone Message Could you do this for me. Thanks, Oni adams ext [phone] Addendum by LLOYD MEMBRENO RN on 03 June 2011 10:38:07 CDT From: LLOYD MEMBRENO RN ([facility] Nurse) To: Myke Nurse; Sent: 06/03/2011 10:38:07 CDT Subject: FW: Phone Message Kassy pharmacist from [facility] in [place] callin. Pt seen today and waiting for script for Nortriptyline at pharmacy, script done by PCP today, butfaxed to [facility]. I called [facility] in [place] and spoke with pharmacist Nanyc to disregard script for Nortriptyline faxed to today, was faxed in error, she verbalized understanding. I refaxed current script done by PCP to [facility] in [place]. 2. Pt brought in script for Adderall XR 10mg daily dated today, needs prior auth due to pts age. Customer Service#: , iD: [phone]. Please advise. From: TRAVIS ROBERTS ([facility]) To: NICOLAS Nurse; Sent: 06/03/2011 10:20:47 CDT Subject: Phone Message Caller is: ( [...] back cell phone number ( ) Source: [facility] [employer] Document Id: [id number] Telephone Encounter - Conversion, Historical Provider Ser - 02/13/2011 10:15 AM CDT Phone Message Document Contains Addenda Addendum by ONI MORROW LPN on 13 Feb 2011 17:34:04 CDT mailed as reguested Addendum by LAUREN CANAS MD on 13 Feb 2011 17:19:10 CDT From: LAUREN CANAS MD To: KEVAN [facility] Nurse; Sent: 02/13/2011 17:19:10 CDT Subject: RE: Phone Message ok Addendum by LAUREN CANAS MD on 13 Feb 2011 17:18:55 CDT Submitted: Order Drug: dextroamphetamine-amphetamine (Adderall XR 10 mg oral capsule, extended release) 1 cap(s) PO Daily AM Qty: 30 cap(s) Refills: 0 Print - [id number] Signed by LAUREN CANAS MD 02/13/2011 17:17:52 Submitted: Order Drug: dextroamphetamine-amphetamine (Adderall XR 20 mg oral capsule, extended release) 1 cap(s) PO Daily AM Qty: 30 cap(s) Refills: 0 Print - [id number] Signed by LAUREN CANAS MD 02/13/2011 17:17:52 Submitted: Complete Drug: dextroamphetamine-amphetamine (Adderall XR 10 mg oral capsule, extended release) Signed by LAUREN CANAS MD 02/13/2011 17:17:52 Submitted: Complete Drug: dextroamphetamine-amphetamine (Adderall XR 20 mg oral capsule, extended release) Signed by LAUREN CANAS MD 02/13/2011 17:17:51 Addendum by ONI MORROW LPN on 13 Feb 2011 15:45:19 CDT Addendum by DEREK MOLINA RN on 13 Feb 2011 10:25:12 CDT From: DEREK MOLINA RN ([facility] COUNT IN[facility]ES THE [facility] Nurse) To: KEVAN Canas Nurse; Sent: 02/13/2011 10:25:12 CDT Subject: FW: Phone Message Pt calling-no need to call back. Please mail rx for adderall to [facility]: [address] [place] [address] Pharmacy is aware rx will be arriving in the mail. From: LENI HATHAWAY To: KEVAN VALENZUELA Nurse; Sent: 02/13/2011 10:15:11 CDT Subject: Phone Message Caller is: ( [...] back cell phone number ( ) Source: [facility] Document Id: [id number] documented in this encounter Plan of Treatment Not on filedocumented as of this encounter Visit Diagnoses Not on filedocumented in this encounter
--- OUTSIDE RECORDS SUMMARY | 2022-07-14 15:03 | XMS_ITS | Encounter Summary ---
:1990 Author Organization [facility] Address [address] [place] [address] Care Team Providers Name Role Phone Unavailable Primary Care Provider Unavailable Encounter Details Date Type Department Care Team Description 08/20/2010 Hospital Encounter HX [facility] Jayson Devries M.D. Social History Tobacco Use Types Packs/Day Years Used Date Smoking Tobacco: Never Assessed Sex Assigned at Date Recorded Not on file documented as of this encounter Plan of Treatment Not on filedocumented as of this encounter Visit Diagnoses Not on filedocumented in this encounter
--- OUTSIDE RECORDS SUMMARY | 2022-07-14 15:03 | XMS_ITS | Encounter Summary ---
:1990 Author Organization [facility] Address [address] [place] [address] Care Team Providers Name Role Phone Unavailable Primary Care Provider Unavailable Encounter Details Date Type Department Care Team Description 09/09/2010 Hospital Encounter HX NO MAPPING Mayelin Steven M.D. [address] [place] [address] [phone] (Wo rk) Social History Tobacco Use Types Packs/Day Years Used Date Smoking Tobacco: Never Assessed Sex Assigned at Date Recorded Not on file documented as of this encounter Plan of Treatment Not on filedocumented as of this encounter Visit Diagnoses Not on filedocumented in this encounter
--- OUTSIDE RECORDS SUMMARY | 2022-07-14 15:03 | XMS_ITS | Encounter Summary ---
:1990 Author Organization [facility] Address [address] [place] [address] Care Team Providers Name Role Phone Unavailable [...]
--- OUTSIDE RECORDS SUMMARY | 2022-07-14 15:03 | XMS_ITS | Encounter Summary ---
:1990 Author Organization [facility] Address [address] [place] [address] Care Team Providers Name Role Phone Unavailable [...] 08/15/2010 1:10 PM CST Report CLINIC NOTE [place], [place] PATIENT: [id number] NAME: YOLANDA LEONE ENCOUNTER: [id number] DATE OF : [birth year] SERVICE DATE: 08/15/10 PROVIDER: Rakan Dawkins MD LOCATION: CLINIC DESCRIPTION: RT SHOULDER PAIN/LEFT SIDE PAIN CHARGES: 61684 OFFICE/OUTPATIENT VISIT, EST DIAGNOSES: 726.0 ADHESIVE CAPSULIT [...] right collar bone. She is going to [place] and living in [place] and does not like to go to [...] pt is a smoker Packs per day: [id number] Cessation advise offered: Y Any use of alcohol? N Any user of caffeine? N Any recent travel? Y Travel Region(s): [place] PHQ-9 Screening Date: 06/25/10 PHQ-9 Score: 6 Surgery and Event History Tonsillectomy & Adenoidectomy, 01/30/05 Health Maint and Disease Mgmt Health Maintenance and Disease Management was reviewed. Vitals Weight: 86.4 kg Pulse: 98 Blood Pressure: 114/66 (Sitting, Left Arm) Additional Vitals Information Pain: Y (07/07) Diabetes: N Unintentional Weight Change? N Information provided by: self Senior Control Systems Engineer present: N Chief Complaint: right shoulder and [...] Right Shoulder 4 views ( Today at [facility]-Radiology) Dx - JOINT PAIN-SHLDER at 1139. Source: [facility] AMCHXTRANSXSYS Document Id: [id number] Electronically signed by Halle [facility] Mechanical Integrity Specialist [id number] at 03/01/2017 2:22 PM CDT documented in this encounter Plan of Treatment Not on filedocumented as of this encounter Procedures Procedure Name Priority Date/Time Associated Diagnosis Comme nts DX SHOULDER RIGHT Routine 08/15/2010 2:13 PM Resu lts for this 2+ VIEWS ROTOR BALANCER procedure are i n the results section. documented in this encounter Results DX Shoulder Right 2+ Views (08/15/2010 2:13 PM ROTOR BALANCER) Anatomical Region Laterality Modality Upper Extremity, Shoulder Right Radiographic I maging Specimen (Source) Anatomical Collection Method Collection Time Re ceived Time Location / / Volume Laterality 08/15/2010 2:13 PM ROTOR BALANCER Narrative 08/15/2010 2:13 PM ROTOR BALANCER Originally Signed By Contributor_system, [facility]_HX_RAD_SYS Right shoulder 4 views Indication: Pain Findings: No acute fractures or dislocat ion. The right humeral head is well-seated within the glenoid fossa. No significant degenerative changes. No bony lesions. Visualized rig ht lung is clear. Electronically Signed 08/15/2010 Reported By: Mayra Cho ?? Transcribed: 08/15/2010 (145) ??[email or web address].AU CC: Rakan Dawkins MD Procedure Note Provider, Deejay, Dg - 02/26/2017F ormatting of this note might be different from the original. Originally Signed By Contributor_system, [facility]_HX_RAD_SYS Right shoulder 4 views Indication: Pain Findings: No acute fractures or dislocat ion. The right humeral head is well-seated within the glenoid fossa. No significant degenerative changes. No bony lesions. Visualized rig ht lung is clear. Electronically Signed 08/15/2010 Reported By: Mayra Cho Transcribed: 08/15/2010 (0202) [facility].AU CC: Rakan Dawkins MD Historical Provider IMG DIAGNOSTIC IMAGING PROCE DURES documented in this encounter Visit Diagnoses Not on filedocumented in this encounter
--- OUTSIDE RECORDS SUMMARY | 2022-07-14 15:03 | XMS_ITS | Encounter Summary ---
:1990 Author Organization [facility] Address [address] [place] [address] Care Team Providers Name Role Phone Unavailable Primary Care Provider Unavailable Encounter Details Date Type Department Care Team Description 10/17/2010 Hospital Encounter HX [facility] ALIA OBNicolasa Hawkins D.O. Social History Tobacco Use Types Packs/Day Years Used Date Smoking Tobacco: Never Assessed Sex Assigned at Date Recorded Not on file documented as of this encounter Progress Notes Nicolasa Desouza D.O. - 10/17/2010 12:30 PM CST Report [place], [place] PATIENT: [id number] NAME: YOLANDA LEONE ENCOUNTER: [id number] DATE OF : [birth year] SERVICE DATE: 10/17/10 PROVIDER: Nicolasa Desouza DO LOCATION: CLINIC DESCRIPTION: DEPO 3:30 CHARGES: 51525 INJECTION SUBCU/IM J1055 MEDROXYPROGESTERONE,150 MG CONTRACEPTIVE DIAGNOSES: V25.49 CONTRACEPT SURVEILL NEC Source: [facility] AMCHXTRANSXSYS Document Id: [id number] Electronically signed by Halle [facility] Environmental Health And Safety Manager [id number] at 03/30/2017 9:13 PM CDT documented in this encounter Plan of Treatment Not on filedocumented as of this encounter Visit Diagnoses Not on filedocumented in this encounter
--- OUTSIDE RECORDS SUMMARY | 2022-07-14 15:03 | XMS_ITS | Encounter Summary ---
:1990 Author Organization [facility] Address [address] [place] [address] Care Team Providers Name Role Phone Unavailable [...] 12/12/2010 11:10 AM CDT Report CLINIC NOTE [place], [place] PATIENT: [id number] NAME: YOLANDA LEONE ENCOUNTER: [id number] DATE OF : [birth year] SERVICE DATE: 12/12/10 PROVIDER: Rakan Canas MD LOCATION: CLINIC DESCRIPTION: EAR PAIN PER NURSE CHARGES: 99548 OFFICE/OUTPATIENT VISIT, EST DIAGNOSES: 780.4 DIZZINESS AND [...] food place. A work excuse for the th was given. I suggested that she return [...] pt is a smoker Packs per day: [id number] Cessation advise offered: Y Any use of alcohol? N Any user of caffeine? N Any recent travel? Y Travel Region(s): [place] PHQ-9 Screening Date: 06/25/10 PHQ-9 Score: 6 [...] Milligrams INTRAMUSC every 12 weeks, #4 at 204. Source: [facility] AMCHXTRANSXSYS Document Id: [id number] Electronically signed by Conversion, [facility] Ophthalmic Pathologist [id number] at 03/30/2017 9:07 PM CDT documented in this encounter Miscellaneous Notes Telephone [...] BM's continue From: LENI HATHAWAY To: [facility] Nurse; Sent: 04/15/2011 13:06:54 CDT Subject: Phone [...] back cell phone number ( ) Source: [facility] POWERCHART Document Id: [id number] Telephone Encounter - Conversion, Historical Provider Ser - 03/21/2011 7:53 AM CDT Phone Message Document Contains Addenda Addendum by DIMITRIS GUAMAN LPN on 21 March 2011 08:45:35 CDT rx sent to customer for patient peanut picker Addendum by JOE SCHROEDER MD on 21 March 2011 08:36:54 CDT From: JOE SCHROEDER MD To: KEVAN Guillermo Nurse; Sent: 03/21/2011 08:36:54 CDT Subject: RE: Phone Message rx printed for patient peanut picker. Addendum by JOE SCHROEDER MD on 21 March 2011 08:30:06 CDT Submitted: Order Drug: dextroamphetamine-amphetamine (Adderall XR 10 mg oral capsule, extended release) 1 cap(s) PO Daily AM Qty: 30 cap(s) Refills: 0 Print - [id number] Signed by JOE SCHROEDER MD 03/21/2011 08:29:32 Submitted: Order Drug: dextroamphetamine-amphetamine (Adderall XR 20 mg oral capsule, extended release) 1 cap(s) PO Daily AM Qty: 30 cap(s) Refills: 0 Print - [id number] Signed by JOE SCHROEDER MD 03/21/2011 08:29:32 [...] CDT needs adderall refilled, generic please will peanut picker at customer service this afternoon Addendum [...] #: Reason for Call: would like to peanut picker rx at customer service. Message: [phone] Advice/Action: Source used: ( ) Verbalizes understanding [...] back cell phone number ( ) Source: [facility] POWERCHART Document Id: [id number] Telephone Encounter - Conversion, Historical Provider Ser [...] 22:14:48 CDT From: RAKAN CANAS MD To: [facility] Nurse; Sent: 02/17/2011 22:14:48 CDT Subject: RE: Phone Message I thought we sent this to them last week Addendum by RAKAN CANAS MD on 17 Feb 2011 21:42:16 CDT From: RAKAN CANAS MD [facility]; Sent: 02/17/2011 21:42:16 CDT Subject: RE: Phone Message ok Addendum by CHAITANYA SANTIAGO RN on 17 Feb 2011 16:21:43 CDT From: CHAITANYA SANTIAGO RN ([facility] Nurse) To: RAKAN CANAS; Sent: 02/17/2011 16:21:43 CDT Subject: FW: Phone Message FYI: janetsocorro winters calls. d/t cost pt. wants generic adderall. they have the generic 10mg tabs but not 20mg's. but they have generic 5mg's and 15mg's, ok given to dispense those to make up the [id number] dose From: KATIE TAY To: [facility] Nurse; Sent: 02/17/2011 16:18:56 CDT Subject: Phone [...] back cell phone number ( ) Source: [facility] GeoQuip Document Id: [id number] documented in this encounter Plan of Treatment Not on filedocumented as of this encounter Visit Diagnoses Not on filedocumented in this encounter
--- OUTSIDE RECORDS SUMMARY | 2022-07-14 15:03 | XMS_ITS | Encounter Summary ---
:1990 Author Organization [facility] Address [address] [place] [address] Care Team Providers Name Role Phone Unavailable Primary Care Provider Unavailable Encounter Details Date Type Department Care Team Description 10/17/2010 Hospital Encounter HX [facility] AUNicolasa Bettencourt D.O. Social History Tobacco Use Types Packs/Day Years Used Date Smoking Tobacco: Never Assessed Sex Assigned at Date Recorded Not on file documented as of this encounter Plan of Treatment Not on filedocumented as of this encounter Visit Diagnoses Not on filedocumented in this encounter
--- OUTSIDE RECORDS SUMMARY | 2022-07-14 15:03 | XMS_ITS | Encounter Summary ---
:1990 Author Organization [facility] Address [address] [place] [address] Care Team Providers Name Role Phone Unavailable [...] Priority Date/Time Associated Diagnosis Comme nts DX CHEST AP OR PA Routine 09/09/2010 12:02 PM Res ults for this AND LATERAL 2 VIEWS LOCATOR SPECIALIST procedur e are in the results section. documented in this encounter Results DX Chest AP or PA and Lateral 2 Views (09/09/2010 12:02 PM LOCATOR SPECIALIST) Anatomical Region Laterality Modality Chest N/A Radiographic Imaging Specimen (Source) Anatomical Collection Method Collection Time Re ceived Time Location / / Volume Laterality 09/09/2010 12:02 PM LOCATOR SPECIALIST Narrative 09/09/2010 1:07 PM LOCATOR SPECIALIST Indication Chest pain. Findings: Heart size normal. ??Lungs are clear. ?? Negative chest. Nilesh Shanks M.D. dmp ?D: ? THIS IS AN ELEC TRONICALLY VERIFIED REPORT 09/09/2010 1:07 PM: ??[facility] Procedure Note Nilesh Shanks M.D. / Provider, Dg Villalba - 02/20/2017 Indication Chest pain. Findings: Heart size normal. Lungs are clear. Nega tive chest. Nilesh Shanks M.D. dmp T: 09/09/2010 01:07 pm THIS IS AN ELECTRONICALLY VERIFIED REPORT 09/09/2010 1:07 PM: Nilesh Shanks M.D. Historical Provider IMG DIAGNOSTIC IMAGING PROCE DURES documented in this encounter Visit Diagnoses Not on filedocumented in this encounter
--- OUTSIDE RECORDS SUMMARY | 2022-07-14 15:04 | XMS_ITS | Encounter Summary ---
:1990 Author Organization [facility] Address [address] [place] [address] Care Team Providers Name Role Phone Unavailable Primary Care Provider Unavailable Encounter Details Date Type Department Care Team Description 08/08/2008 Hospital Encounter HX [facility] Adan Griffin M.D. [address] [place], [place] [phone] (Wo rk) Social History Tobacco Use Types Packs/Day Years Used Date Smoking Tobacco: Never Assessed Sex Assigned at Date Recorded Not on file documented as of this encounter Plan of Treatment Not on filedocumented as of this encounter Visit Diagnoses Not on filedocumented in this encounter
--- OUTSIDE RECORDS SUMMARY | 2022-07-14 15:04 | XMS_ITS | Encounter Summary ---
:1990 Author Organization [facility] Address [address] [place] [address] Care Team Providers Name Role Phone Unavailable Primary Care Provider Unavailable Encounter Details Date Type Department Care Team Description 09/15/2008 [facility] Ike Webb ED, M.D. Social History Tobacco Use Types Packs/Day Years Used Date Smoking Tobacco: Never Assessed Sex Assigned at Date Recorded Not on file documented as of this encounter Plan of Treatment Not on filedocumented as of this encounter Visit Diagnoses Not on filedocumented in this encounter
--- OUTSIDE RECORDS SUMMARY | 2022-07-14 15:04 | XMS_ITS | Encounter Summary ---
:1990 Author Organization [facility] Address [address] [place] [address] Care Team Providers Name Role Phone Unavailable Primary Care Provider Unavailable Encounter Details Date Type Department Care Team Description 03/05/2010 Hospital Encounter [facility]X [facility] Kacie Gloria APRN, C.N.P. Social History Tobacco Use Types Packs/Day Years Used Date Smoking Tobacco: Never Assessed Sex Assigned at Date Recorded Not on file documented as of this encounter Plan of Treatment Not on filedocumented as of this encounter Visit Diagnoses Not on filedocumented in this encounter
--- OUTSIDE RECORDS SUMMARY | 2022-07-14 15:04 | XMS_ITS | Encounter Summary ---
:1990 Author Organization [facility] Address [address] [place] [address] Care Team Providers Name Role Phone Unavailable Primary Care Provider Unavailable Encounter Details Date Type Department Care Team Description 08/14/2009 Hospital Encounter [facility] Wendy Montoya, Tracie [address] [place] [address] (Wo rk) Social History Tobacco Use Types Packs/Day Years Used Date Smoking Tobacco: Never Assessed Sex Assigned at Date Recorded Not on file documented as of this encounter Plan of Treatment Not on filedocumented as of this encounter Visit Diagnoses Not on filedocumented in this encounter
--- OUTSIDE RECORDS SUMMARY | 2022-07-14 15:04 | XMS_ITS | Encounter Summary ---
:[address] [facility] Address [address] [place] [address] Care Team Providers Name Role Phone Unavailable Primary Care Provider Unavailable Encounter Details Date Type Department Care Team Description 12/05/2009 Hospital Encounter [facility]X [facility] AUNicolasa Bettencourt D.O. Social History Tobacco Use Types Packs/Day Years Used Date Smoking Tobacco: Never Assessed Sex Assigned at Date Recorded Not on file documented as of this encounter Plan of Treatment Not on filedocumented as of this encounter Visit Diagnoses Not on filedocumented in this encounter
--- OUTSIDE RECORDS SUMMARY | 2022-07-14 15:04 | XMS_ITS | Encounter Summary ---
:1990 Author Organization [facility] Address [address] [place] [address] Care Team Providers Name Role Phone Unavailable Primary Care Provider Unavailable Encounter Details Date Type Department Care Team Description 09/13/2008 Hospital Encounter HX [facility] Anibal Kim M.D. [address] [place], [place] [phone] (Wo rk) Social History Tobacco Use Types Packs/Day Years Used Date Smoking Tobacco: Never Assessed Sex Assigned at Date Recorded Not on file documented as of this encounter Plan of Treatment Not on filedocumented as of this encounter Visit Diagnoses Not on filedocumented in this encounter
--- OUTSIDE RECORDS SUMMARY | 2022-07-14 15:04 | XMS_ITS | Encounter Summary ---
:1990 Author Organization [facility] Address [address] [place] [address] Care Team Providers Name Role Phone Unavailable Primary Care Provider Unavailable Encounter Details Date Type Department Care Team Description 08/08/2008 Hospital Encounter [facility] Anibal Kim M.D. [address] [place], [place] [phone] (Wo rk) Social History Tobacco Use Types Packs/Day Years Used Date Smoking Tobacco: Never Assessed Sex Assigned at Date Recorded Not on file documented as of this encounter Plan of Treatment Not on filedocumented as of this encounter Visit Diagnoses Not on filedocumented in this encounter
--- OUTSIDE RECORDS SUMMARY | 2022-07-14 15:04 | XMS_ITS | Encounter Summary ---
:1990 Author Organization [facility] Address [address] [place] [address] Care Team Providers Name Role Phone Unavailable Primary Care Provider Unavailable Encounter Details Date Type Department Care Team Description 08/22/2008 Hospital Encounter HX [facility] Conchis Grace, C.N.P., R.N. [address], [place] [phone] (Wo rk) Social History Tobacco Use Types Packs/Day Years Used Date Smoking Tobacco: Never Assessed Sex Assigned at Date Recorded Not on file documented as of this encounter Plan of Treatment Not on filedocumented as of this encounter Procedures Procedure Name Priority Date/Time Associated Diagnosis Comme nts DX KNEE RIGHT 1 Routine 08/22/2008 3:26 PM Result s for this VIEW CITRUS PEELER procedure are i n the results section. documented in this encounter Results DX Knee Right 1 View (08/22/2008 3:26 PM CITRUS PEELER) Anatomical Region Laterality Modality Lower Extremity, Knee Right Radiographic Imagi ng Specimen (Source) Anatomical Collection Method Collection Time Re ceived Time Location / / Volume Laterality 08/22/2008 3:26 PM CITRUS PEELER Narrative 08/22/2008 3:26 PM CITRUS PEELER Originally Signed By Contributor_system, [facility]_HX_RAD_SYS Exam: Right knee series Indication: Joint pain. Impression: No prior studies are availab le for comparison. Joint spaces are satisfactorily preserved. No evidence of fracture or dislocation. Electronically Signed 08/23/2008 Reported By: Jaxon Caballero ? Transcribed: 08/23/2008 (1001) ??[facility] CC: Janell L Maximilian RN ER Procedure Note Provider, Dg Villalba - 03/03/2017F ormatting of this note might be different from the original. Originally Signed By Contributor_system, [facility]_HX_RAD_SYS Exam: Right knee series Indication: Joint pain. Impression: No prior studies are availab le for comparison. Joint spaces are satisfactorily preserved. No evidence of fracture or dislocation. Electronically Signed 08/23/2008 Reported By: Jaxon Caballero MD Transcribed: 08/23/2008 (1001) [facility].AU CC: [place] Janell Yao CNP Historical Provider IMG DIAGNOSTIC IMAGING PROCE SRUTHI documented in this encounter Visit Diagnoses Not on filedocumented in this encounter
--- OUTSIDE RECORDS SUMMARY | 2022-07-14 15:04 | XMS_ITS | Encounter Summary ---
:1990 Author Organization [facility] Address [address] [place] [address] Care Team Providers Name Role Phone Unavailable Primary Care Provider Unavailable Encounter Details Date Type Department Care Team Description 10/24/2008 Hospital Encounter HX [facility] AUNicolasa Bettencourt D.O. Social History Tobacco Use Types Packs/Day Years Used Date Smoking Tobacco: Never Assessed Sex Assigned at Date Recorded Not on file documented as of this encounter Plan of Treatment Not on filedocumented as of this encounter Visit Diagnoses Not on filedocumented in this encounter
--- OUTSIDE RECORDS SUMMARY | 2022-07-14 15:04 | XMS_ITS | Encounter Summary ---
:1990 Author Organization [facility] Address [address] [place] [address] Care Team Providers Name Role Phone Unavailable Primary Care Provider Unavailable Encounter Details Date Type Department Care Team Description 01/12/2009 Hospital Encounter HX [facility] AUNicolasa Bettencourt D.O. Social History Tobacco Use Types Packs/Day Years Used Date Smoking Tobacco: Never Assessed Sex Assigned at Date Recorded Not on file documented as of this encounter Plan of Treatment Not on filedocumented as of this encounter Visit Diagnoses Not on filedocumented in this encounter
--- OUTSIDE RECORDS SUMMARY | 2022-07-14 15:04 | XMS_ITS | Encounter Summary ---
:1990 Author Organization [facility] Address [address] [place] [address] Care Team Providers Name Role Phone Unavailable Primary Care Provider Unavailable Encounter Details Date Type Department Care Team Description 02/03/2010 Hospital Encounter HX NO MAPPING Antonio Urbano M.D. [address], [place] [phone] (Wo rk) Social History Tobacco Use Types Packs/Day Years Used Date Smoking Tobacco: Never Assessed Sex Assigned at Date Recorded Not on file documented as of this encounter Plan of Treatment Not on filedocumented as of this encounter Visit Diagnoses Not on filedocumented in this encounter
--- OUTSIDE RECORDS SUMMARY | 2022-07-14 15:04 | XMS_ITS | Encounter Summary ---
:1990 Author Organization [facility] Address [address] [place] [address] Care Team Providers Name Role Phone Unavailable Primary Care Provider Unavailable Encounter Details Date Type Department Care Team Description 08/18/2008 Hospital Encounter HX [facility] Rakan Dawkins M.D. Social History Tobacco Use Types Packs/Day Years Used Date Smoking Tobacco: Never Assessed Sex Assigned at Date Recorded Not on file documented as of this encounter Plan of Treatment Not on filedocumented as of this encounter Visit Diagnoses Not on filedocumented in this encounter
--- OUTSIDE RECORDS SUMMARY | 2022-07-14 15:04 | XMS_ITS | Encounter Summary ---
:1990 Author Organization [facility] Address [address] [place] [address] Care Team Providers Name Role Phone Unavailable Primary Care Provider Unavailable Encounter Details Date Type Department Care Team Description 10/25/2008 Hospital Encounter HX [facility] Adan Kim M.D. [address] [place], [place] [phone] (Wo rk) Social History Tobacco Use Types Packs/Day Years Used Date Smoking Tobacco: Never Assessed Sex Assigned at Date Recorded Not on file documented as of this encounter Plan of Treatment Not on filedocumented as of this encounter Visit Diagnoses Not on filedocumented in this encounter
--- OUTSIDE RECORDS SUMMARY | 2022-07-14 15:04 | XMS_ITS | Encounter Summary ---
:1990 Author Organization [facility] Address [address] [place] [address] Care Team Providers Name Role Phone Unavailable Primary Care Provider Unavailable Encounter Details Date Type Department Care Team Description 06/21/2009 Hospital Encounter HX [facility] OBNicolasa Hawkins D.O. Social History Tobacco Use Types Packs/Day Years Used Date Smoking Tobacco: Never Assessed Sex Assigned at Date Recorded Not on file documented as of this encounter Progress Notes Nicolasa Desouza D.O. - 06/21/2009 3:45 PM CDT Report PATIENT: [id number] NAME: YOLANDA LEONE ENCOUNTER: [id number] DATE OF : [birth year] SERVICE DATE: 06/21/09 PROVIDER: Nicolasa Desouza DO LOCATION: CLINIC DESCRIPTION: DEPO CHARGES: 62667 INJECTION SUBCU/IM J1055 DEPO PROVERA, 150 MG CONTRACEPTIVE DIAGNOSES: V25.49 CONTRACEPT SURVEILL NEC BRIGADIER TEXT: E-Signed on 06/21/09 at 1601 by Nicolasa Desouza MD Patient Age: 19 Reason for Visit: DEPO BMI: kg/m2 Allergies: No Known Drug Intolerances Allergies per Inpatient Nursing Documentation: [NKDA] [METAL] Nurse Only documentation: DEPO PROVERA 150MG IM LT GM/LOT#[id number] /RTC 09-11-09/WT 85KG/GRE[place]ONE Source: [facility] AMCHXTRANSXSYS Document Id: [id number] documented in this encounter Plan of Treatment Not on filedocumented as of this encounter Visit Diagnoses Not on filedocumented in this encounter
--- OUTSIDE RECORDS SUMMARY | 2022-07-14 15:04 | XMS_ITS | Encounter Summary ---
:1990 Author Organization [facility] Address [address] [place] [address] Care Team Providers Name Role Phone Unavailable Primary Care Provider Unavailable Encounter Details Date Type Department Care Team Description 10/25/2008 Hospital Encounter HX [facility] Anibal Kim M.D. [address] [place], [place] [phone] (Wo rk) Social History Tobacco Use Types Packs/Day Years Used Date Smoking Tobacco: Never Assessed Sex Assigned at Date Recorded Not on file documented as of this encounter Plan of Treatment Not on filedocumented as of this encounter Visit Diagnoses Not on filedocumented in this encounter
--- OUTSIDE RECORDS SUMMARY | 2022-07-14 15:04 | XMS_ITS | Encounter Summary ---
:1990 Author Organization [facility] Address [address] [place] [address] Care Team Providers Name Role Phone Unavailable Primary Care Provider Unavailable Encounter Details Date Type Department Care Team Description 12/05/2009 Hospital Encounter HX [facility] Ashley Doyle M.D. Social History Tobacco Use Types Packs/Day Years Used Date Smoking Tobacco: Never Assessed Sex Assigned at Date Recorded Not on file documented as of this encounter Progress Notes Ashley Jimenez M.D. - 12/05/2009 12:30 PM CST Report [place], [place] PATIENT: [id number] NAME: YOLANDA LEOEN ENCOUNTER: [id number] DATE OF : [birth year] SERVICE DATE: 12/05/09 PROVIDER: Ashley Jimenez MD LOCATION: CLINIC DESCRIPTION: DEPO SHOT DR SNOW PT CHARGES: 97026 INJECTION SUBCU/IM J1055 DEPO PROVERA, 150 MG CONTRACEPTIVE DIAGNOSES: V25.49 CONTRACEPT SURVEILL NEC Source: [facility] AMCHXTRANSXSYS Document Id: [id number] Electronically signed by Halle [facility] Fountain Worker [id number] at 03/31/2017 11:25 AM CDT documented in this encounter Plan of Treatment Not on filedocumented as of this encounter Visit Diagnoses Not on filedocumented in this encounter
--- OUTSIDE RECORDS SUMMARY | 2022-07-14 15:04 | XMS_ITS | Encounter Summary ---
:1990 Author Organization [facility] Address [address] [place] [address] Care Team Providers Name Role Phone Unavailable Primary Care Provider Unavailable Encounter Details Date Type Department Care Team Description 04/29/2010 Hospital Encounter HX [facility] OBGYNicolasa Brice D.O. Social History Tobacco Use Types Packs/Day Years Used Date Smoking Tobacco: Never Assessed Sex Assigned at Date Recorded Not on file documented as of this encounter Progress Notes Nicolasa Desouza D.O. - 04/29/2010 7:00 AM CDT Report [place], [place] PATIENT: [id number] NAME: EMILIANO LEONE ENCOUNTER: [id number] DATE OF : [birth year] SERVICE DATE: 04/29/10 PROVIDER: Nicolasa Desouza DO LOCATION: CLINIC DESCRIPTION: STARTING DEPO/UPT FIRST CHARGES: 81722 INJECTION SUBCU/IM J1055 MEDROXYPROGESTERONE,150 MG CONTRACEPTIVE DIAGNOSES: V25.49 CONTRACEPT SURVEILL NEC Source: [facility] AMCHXTRANSXSYS Document Id: [id number] Electronically signed by [facility], [facility] Lacing Presser [id number] at 03/31/2017 11:25 AM CDT documented in this encounter Plan of Treatment Not on filedocumented as of this encounter Visit Diagnoses Not on filedocumented in this encounter
--- OUTSIDE RECORDS SUMMARY | 2022-07-14 15:04 | XMS_ITS | Encounter Summary ---
:1990 Author Organization [facility] Address [address] [place] [address] Care Team Providers Name Role Phone Unavailable Primary Care Provider Unavailable Encounter Details Date Type Department Care Team Description 09/18/2008 Hospital Encounter HX [facility] Karlo Dawkins M.D. Social History Tobacco Use Types Packs/Day Years Used Date Smoking Tobacco: Never Assessed Sex Assigned at Date Recorded Not on file documented as of this encounter Plan of Treatment Not on filedocumented as of this encounter Visit Diagnoses Not on filedocumented in this encounter
--- OUTSIDE RECORDS SUMMARY | 2022-07-14 15:04 | XMS_ITS | Encounter Summary ---
:1990 Author Organization [facility] Address [address] [place] [address] Care Team Providers Name Role Phone Unavailable Primary Care Provider Unavailable Encounter Details Date Type Department Care Team Description 10/30/2009 Hospital Encounter HX [facility] ED Telma Cedillo M.D. [address] [place] [address] (Wo rk) Social History Tobacco Use Types Packs/Day Years Used Date Smoking Tobacco: Never Assessed Sex Assigned at Date Recorded Not on file documented as of this encounter ED Notes Adeel Cedillo M.D. - 10/30/2009 11:39 AM CST Report Emergency Department Note [place], [place] Name: YOLANDA LEONE Date : 10/30/09 Unit #: [id number] Clinical Report YOLANDA LEONE [facility] Emergency Department Unit# [id number] [facility] [address] Date of Service: 10/30/2009 DORI Gerard [id number] PCP: [phone] Referring Doctor: HISTORY OF PRESENT ILLNESS Chief complaint- ABDOMINAL PAIN. This started yesterday and is still present. It is described as pain and it is described as generalized in location and located in the upper abdomen and in the left upper quadrant. At its maximum, severity described as severe. When seen in the E.D., severity described as moderate. Modifying factors- Not worsened by anything. Not relieved by anything. She has had nausea and vomiting. No loss of appetite. The patient has had similar symptoms previously. REVIEW OF SYSTEMS No constipation, black stools, hematemesis, difficulty with urination or pain with urination. No urinary frequency, fever or chills. All systems otherwise negative, except as recorded above. PAST HISTORY Surgeries: No history of previous surgery. SOCIAL HISTORY Is a local resident. FAMILY HISTORY Negative. ADDITIONAL NOTES The nursing notes have been reviewed. PHYSICAL EXAM Appearance: Alert. Oriented X3. Patient in moderate distress. Vital Signs: Have been reviewed. Eyes: Pupils equal, round and reactive to light. Eyes normal inspection. No conjunctival findings or scleral icterus. Neck: Normal inspection. Neck supple. CVS: Normal heart rate and rhythm. Not tachycardic. Respiratory: No respiratory distress. Abdomen: Soft. Tenderness in the epigastric area and left upper quadrant. Obese. No rebound tenderness or guarding. Back: Normal inspection. No CVA tenderness. Skin: Skin warm and dry. Normal skin color. No rash. Normal skin turgor. Extremities: No lower extremity edema. Neuro: Oriented X 3. No motor deficit. LABS, X-RAYS, AND EKG KUB: No acute disease. Increased stool present (sigmoid). Views: two-view AP. Technique: good. The X-rays were independently viewed by me, interpreted by the radiologist and contemporaneously by me and discussed with the radiologist. Laboratory Tests: Urinalysis: ( MsgRcvd 10/30/2009 12:17) In Progress Reason for test: ABD PAIN Test Result Flag Units (Reference) MICRO NEEDED? Yes N Urine Protein-Dipstick Trace N mg/dL (Negative-30) Urine Appearance Hazy N (Clear) Urine Bacteria 1+ A (None-Rare) Urine Bilirubin-Dipstick Negative N (Negative) Urine Blood-Dipstick Small A (Negative) Urine Color Yellow N (Yellow) Urine Glucose-Dipstick Negative N mg/dL (Negative) Urine Ketone-Dipstick Negative N mg/dL (Negative) Urine Leukocyte Est-Dipstick Large A (Negative) Urine Nitrites-Dipstick Negative N (Negative) Urine Other * N Urine culture ordered set up by Laboratory per LaboratoryPolicy VIII.8001. Above is a corrected result. Previously reported on ( MsgRcvd 10/30/2009 11:41) as: Urine Other POLICE DETENTION ATTENDANT N Urine pH-Dipstick 7.0 N (5.0-9.0) RBC (automated) 1 N #/hpf (0-3) Urine Specific Leckrone 1.013 N (1.003-1.035) Urine Urobilinogen-Dipstick <2.0 N mg/dL (<2.0) WBC (automated) 23 H #/hpf (0-5) UA w/micro POLICE DETENTION ATTENDANT N CBC: ( MsgRcvd 10/30/2009 11:59) In Progress Reason for test: ABD PAIN Test Result Flag Units (Reference) Absolute Neutrophil Count 5200.00 N /uL Above is a corrected result. Previously reported on ( MsgRcvd 10/30/2009 11:) as: Absolute Neutrophil Count POLICE DETENTION ATTENDANT N /uL Baso # 0.10 N x10(9)/L (0.0-0.30) Above is a corrected result. Previously reported on ( MsgRcvd 10/30/2009) as: Baso # POLICE DETENTION ATTENDANT N x10(9)/L (0.0-0.30) Baso % 1 N % Above is a corrected result. Previously reported on ( MsgRcvd 10/30/2009 11:41) as: Baso % POLICE DETENTION ATTENDANT N % Eos # 0.10 N x10(9)/L (0.0-0.50) Above is a corrected result. Previously reported on ( MsgRcvd 10/30/2009 11:41) as: Eos # POLICE DETENTION ATTENDANT N x10(9)/L (0.0-0.50) Eos % 1 N % Above is a corrected result. Previously reported on ( MsgRcvd 10/30/2009 11:) as: Eos % POLICE DETENTION ATTENDANT N % Hematocrit 40.7 N % (34.9-44.5) Hemoglobin 14.1 N g/dL (12.0-15.5) Lymph # 2.80 N x10(9)/L (1.20-5.20) Lymph % 33 N % MCH 29.7 N pg (26.0-32.0) MCHC 34.5 N g/dL (30.0-36.0) MCV 86 N fL (82-98) Leon # 0.40 N x10(9)/L (0.0-0.80) Leon % 4 N % MPV 7.7 N fL (7.4-10.9) Wilda # 5.20 N x10(9)/L (1.70-7.00) Above is a corrected result. Previously reported on ( MsgRcvd 10/30/2009:) as: Wilda # POLICE DETENTION ATTENDANT N x10(9)/L (1.70-7.00) Wilda % 60 N % Above is a corrected result. Previously reported on ( [facility] 10/30/2009 11:41) as: Wilda % POLICE DETENTION ATTENDANT N % Platelet 323 N x10(9)/L (150-450) RBC 4.73 N M/uL (3.90-5.03) RDW 13.1 N % (11.9-15.5) WBC 8.6 N x10(9)/L (3.5-10.5) HCG, Beta(Qualitative) Urine: ( [facility] 10/30/2009 12:08) In Progress Test Result Flag Units (Reference) HCG, Beta(Qualitative) Urine Negative N Basic Metabolic Panel: ( [facility] 10/30/2009 12:10) In Progress IS PATIENT FASTING? N Reason for test: ABD PAIN Test Result Flag Units (Reference) Anion Gap 12 N mmol/L (6-20) Blood Urea Nitrogen 10 N mg/dL (7-20) Calcium,Serum 9.9 N mg/dL (8.5-10.5) Chloride 103 N mmol/L (98-110) Carbon Dioxide 26 N mmol/L (22-30) Creatinine,Serum 0.62 N mg/dL (0.50-1.20) Glucose, Fasting POLICE DETENTION ATTENDANT N mg/dL (70-100) Glomerular Filtration Rate POLICE DETENTION ATTENDANT N mL/min Above is a corrected result. Previously reported on ( MsgRcvd 10/30/2009 11:41) as: Glomerular Filtration Rate POLICE DETENTION ATTENDANT N mL/min Glucose 97 N mg/dL (<200) Potassium 4.1 N mmol/L (3.5-5.0) Sodium 141 N mmol/L (135-145) . CBC: CBC is normal except as noted. Chemistries: Normal except as follows. Urinalysis: WBCs present. PROGRESS AND PROCEDURES Course of Care: PO percocet zofran feels better unclear etiology; suspect constipation as xray shows increased stool and pain pattern consistent with dx UTI possible so will treat; await cx results discussed with mother and patient; need for follow up results discussed diff dx , treatments, and warnings for needed return should sxs develop; i dont think a UTI explains any of her pain but we will treat based on UA findings; if UA comes back negative for cx, patient instructed to stop antibiotics. Patient/family counseled. Disposition: Condition: good. Discharged. CLINICAL IMPRESSION Generalized, upper, left upper quadrant and lower abdominal pain of unknown cause. Urinary tract infection. Constipation. INSTRUCTIONS Return to school (Please excuse school for today patient seen in the Emergency department.). (for fecal impaction consider glycerin suppository). Warnings: GENERAL WARNINGS: Return or contact your physician immediately if your condition worsens or changes unexpectedly, if not improving as expected, or if other problems arise. Prescription Medications: Vicodin 5 mg: take 1 to 2 orally every 6 hours as needed for pain. Dispense fifteen (15). No refills. Generic substitute OK. Cipro 500 mg: take 1 tab orally every 12 hours for 3 days. Ibuprofen 800 mg tablets: take 1 tablet orally every 8 hours as needed for pain. Dispense 30. No refills. OTC Medications: Take magnesium citrate and Fleets enema according to label instructions. Available over the counter. (Electronically signed by Adeel Cedillo M.D. 11/01/2009 10:20) Source: [facility] Document Id: [id number] Electronically signed by Halle [facility] Vice President Of Consulting Services [id number] at 03/01/2017 2:56 PM CDT documented in this encounter Plan of Treatment Not on filedocumented as of this encounter Procedures Procedure Name Priority Date/Time Associated Diagnosis Comme nts DX ABDOMEN SUPINE Routine 10/30/2009 12:51 PM Res ults for this WITH UPRIGHT OR VISUAL MERCHANDISE MANAGER procedure ar e in DECUBITUS 2 VIEWS the result s section. documented in this encounter Results DX Abdomen Supine with Upright or Decubitus 2 Views (10/30/2009 12:51 PM VISUAL MERCHANDISE MANAGER) Anatomical Region Laterality Modality Abdomen Right Radiographic Imaging Specimen (Source) Anatomical Collection Method Collection Time Re ceived Time Location / / Volume Laterality 10/30/2009 12:51 PM VISUAL MERCHANDISE MANAGER Narrative 10/30/2009 12:51 PM VISUAL MERCHANDISE MANAGER Originally Signed By Contributor_system, [facility]_HX_RAD_SYS Exam: Two-view abdomen. Indication: Abdominal pain. Impression: Negative test. Pro minent colonic stool. No abnormal bowel dilatation is identified to suggest obstruction. No visualized free air. No abnormal calcifi cation. Electronically Signed 10/30/2009 Reported By: Jaxon Caballero ? Transcribed: 10/30/2009 (5821) ??[facility].AU CC: Adeel Cedillo MD Procedure Note Provider, Dg Villalba - 02/26/2017F ormatting of this note might be different from the original. Originally Signed By Contributor_system, [facility]_HX_RAD_SYS Exam: Two-view abdomen. Indication: Abdominal pain. Impression: Negative test. Pro minent colonic stool. No abnormal bowel dilatation is identified to suggest obstruction. No visualized free air. No abnormal calcifi cation. Electronically Signed 10/30/2009 Reported By: Jaxon Caballero MD Transcribed: 10/30/2009 (1311) [facility].AU CC: Adeel Cedillo MD Historical Provider IMG DIAGNOSTIC IMAGING PROCE SRUTHI documented in this encounter Visit Diagnoses Not on filedocumented in this encounter
--- OUTSIDE RECORDS SUMMARY | 2022-07-14 15:04 | XMS_ITS | Encounter Summary ---
:1990 Author Organization [facility] Address [address] [place] [address] Care Team Providers Name Role Phone Unavailable [...]
--- OUTSIDE RECORDS SUMMARY | 2022-07-14 15:04 | XMS_ITS | Encounter Summary ---
:1990 Author Organization [facility] Address [address] [place] [address] Care Team Providers Name Role Phone Unavailable Primary Care Provider Unavailable Encounter Details Date Type Department Care Team Description 08/04/2008 Hospital Encounter HX [facility] INTERNKarlo Bennett M.D. Social History Tobacco Use Types Packs/Day Years Used Date Smoking Tobacco: Never Assessed Sex Assigned at Date Recorded Not on file documented as of this encounter Plan of Treatment Not on filedocumented as of this encounter Visit Diagnoses Not on filedocumented in this encounter
--- OUTSIDE RECORDS SUMMARY | 2022-07-14 15:04 | XMS_ITS | Encounter Summary ---
:1990 Author Organization [facility] Address [address] [place] [address] Care Team Providers Name Role Phone Unavailable Primary Care Provider Unavailable Encounter Details Date Type Department Care Team Description 10/25/2008 Hospital Encounter HX [facility] Anibal Kim M.D. [address] [place], [place] [phone] (Wo rk) Social History Tobacco Use Types Packs/Day Years Used Date Smoking Tobacco: Never Assessed Sex Assigned at Date Recorded Not on file documented as of this encounter Plan of Treatment Not on filedocumented as of this encounter Visit Diagnoses Not on filedocumented in this encounter
--- OUTSIDE RECORDS SUMMARY | 2022-07-14 15:04 | XMS_ITS | Encounter Summary ---
:1990 Author Organization [facility] Address [address] [place] [address] Care Team Providers Name Role Phone Unavailable Primary Care Provider Unavailable Encounter Details Date Type Department Care Team Description 02/28/2010 Hospital Encounter HX [facility] Karlo Dawkins M.D. Social History Tobacco Use Types Packs/Day Years Used Date Smoking Tobacco: Never Assessed Sex Assigned at Date Recorded Not on file documented as of this encounter Plan of Treatment Not on filedocumented as of this encounter Visit Diagnoses Not on filedocumented in this encounter
--- OUTSIDE RECORDS SUMMARY | 2022-07-14 15:04 | XMS_ITS | Encounter Summary ---
:1990 Author Organization [facility] Address [address] [place] [address] Care Team Providers Name Role Phone Unavailable [...] 11/09/2009 9:10 AM CST Report CLINIC NOTE [place], [place] PATIENT: [id number] NAME: YOLANDA LEONE ENCOUNTER: [id number] DATE OF : [birth year] SERVICE DATE: 11/09/09 PROVIDER: Rakan Dawkins MD LOCATION: CLINIC DESCRIPTION: FEVER/VOMITING CHARGES: 29672 OFFICE/OUTPATIENT VISIT, EST DIAGNOSES: 789.00 ABDOMINAL PAIN, [...] she changed school up with him in [place]. She is doing much better. She presents [...] pt is a smoker Packs per day: [id number] Cessation advise offered: Y Any use of alcohol? N Any user of caffeine? N Any recent travel? Y Travel Region(s): [place] Surgery and Event History Tonsillectomy & Adenoidectomy, 01/30/05 Health Maint and Disease Mgmt Health Maintenance and Disease Management was reviewed and updated. Vitals Weight: 84.4 kg Temperature: 37.0 C, Temporal Pulse: 66 Blood Pressure: 100/70 (Sitting, Left Arm) Additional Vitals Information Pain Scale [0-10]: 6 Diabetes: N Primary Care: [facility] Chief Complaint: FEVER AND VOMITING SINCE LAST [...] RSS Rapid Strep Screen ( Today at [facility]) Dx - ABDOMINAL PAIN, UNSPECIFIED SITE at 1802. Source: [facility] AMCHXTRANSXSYS Document Id: [id number] Electronically signed by Conversion, Health system Computer Systems Information Director [id number] at 03/31/2017 11:25 AM CDT documented in this encounter Plan of Treatment Not on filedocumented as of this encounter Visit Diagnoses Not on filedocumented in this encounter
--- OUTSIDE RECORDS SUMMARY | 2022-07-14 15:04 | XMS_ITS | Encounter Summary ---
:1990 Author Organization [facility] Address [address] [place] [address] Care Team Providers Name Role Phone Unavailable Primary Care Provider Unavailable Encounter Details Date Type Department Care Team Description 10/11/2008 Hospital Encounter HX [facility] Kacie Gloria APRN, C.N.P. Social History Tobacco Use Types Packs/Day Years Used Date Smoking Tobacco: Never Assessed Sex Assigned at Date Recorded Not on file documented as of this encounter Plan of Treatment Not on filedocumented as of this encounter Visit Diagnoses Not on filedocumented in this encounter
--- OUTSIDE RECORDS SUMMARY | 2022-07-14 15:04 | XMS_ITS | Encounter Summary ---
:1990 Author Organization [facility] Address [address] [place] [address] Care Team Providers Name Role Phone Unavailable Primary Care Provider Unavailable Encounter Details Date Type Department Care Team Description 04/29/2010 Hospital Encounter [facility] Bet[facility]court D.O. Social History Tobacco Use Types Packs/Day Years Used Date Smoking Tobacco: Never Assessed Sex Assigned at Date Recorded Not on file documented as of this encounter Plan of Treatment Not on filedocumented as of this encounter Visit Diagnoses Not on filedocumented in this encounter
--- OUTSIDE RECORDS SUMMARY | 2022-07-14 15:04 | XMS_ITS | Encounter Summary ---
:1990 Author Organization [facility] Address [address] [place] [address] Care Team Providers Name Role Phone Unavailable Primary Care Provider Unavailable Encounter Details Date Type Department Care Team Description 07/29/2010 Hospital Encounter HX [facility] Nicolasa Cunningham D.O. Social History Tobacco Use Types Packs/Day Years Used Date Smoking Tobacco: Never Assessed Sex Assigned at Date Recorded Not on file documented as of this encounter Progress Notes Nicolasa Desouza D.O. - 07/29/2010 12:30 PM CDT Report [place], [place] PATIENT: [id number] NAME: YOLANDA LEONE ENCOUNTER: [id number] DATE OF : [birth year] SERVICE DATE: 07/29/10 PROVIDER: Nicolasa Desouza DO LOCATION: CLINIC DESCRIPTION: DEPO COMING AT 3:30 CHARGES: 32115 INJECTION SUBCU/IM J1055 MEDROXYPROGESTERONE,150 MG CONTRACEPTIVE DIAGNOSES: V25.49 CONTRACEPT SURVEILL NEC Source: [facility] AMCHXTRANSXSYS Document Id: [id number] Electronically signed by Halle, [facility] Manager Trade Marketing [id number] at 03/31/2017 11:25 AM CDT documented in this encounter Plan of Treatment Not on filedocumented as of this encounter Visit Diagnoses Not on filedocumented in this encounter
--- OUTSIDE RECORDS SUMMARY | 2022-07-14 15:04 | XMS_ITS | Encounter Summary ---
:1990 Author Organization [facility] Address [address] [place] [address] Care Team Providers Name Role Phone Unavailable Primary Care Provider Unavailable Encounter Details Date Type Department Care Team Description 03/22/2010 Hospital Encounter HX [facility] Nicolasa Desouza D.O. Social History Tobacco Use Types Packs/Day Years Used Date Smoking Tobacco: Never Assessed Sex Assigned at Date Recorded Not on file documented as of this encounter Plan of Treatment Not on filedocumented as of this encounter Visit Diagnoses Not on filedocumented in this encounter
--- OUTSIDE RECORDS SUMMARY | 2022-07-14 15:04 | XMS_ITS | Encounter Summary ---
:1990 Author Organization [facility] Address [address] [place] [address] Care Team Providers Name Role Phone Unavailable Primary Care Provider Unavailable Encounter Details Date Type Department Care Team Description 02/03/2010 Hospital Encounter HX NO MAPPING Antonio Urbano M.D. [address], [place] [phone] (Wo rk) Social History Tobacco Use Types Packs/Day Years Used Date Smoking Tobacco: Never Assessed Sex Assigned at Date Recorded Not on file documented as of this encounter Plan of Treatment Not on filedocumented as of this encounter Visit Diagnoses Not on filedocumented in this encounter
--- OUTSIDE RECORDS SUMMARY | 2022-07-14 15:04 | XMS_ITS | Encounter Summary ---
:1990 Author Organization [facility] Address [address] [place] [address] Care Team Providers Name Role Phone Unavailable Primary Care Provider Unavailable Encounter Details Date Type Department Care Team Description 10/25/2008 Hospital Encounter HX [facility] Blanka Kim M.D. [address] [place], [place] [phone] (Wo rk) Social History Tobacco Use Types Packs/Day Years Used Date Smoking Tobacco: Never Assessed Sex Assigned at Date Recorded Not on file documented as of this encounter Plan of Treatment Not on filedocumented as of this encounter Visit Diagnoses Not on filedocumented in this encounter
--- OUTSIDE RECORDS SUMMARY | 2022-07-14 15:04 | XMS_ITS | Encounter Summary ---
:1990 Author Organization [facility] Address [address] [place] [address] Care Team Providers Name Role Phone Unavailable Primary Care Provider Unavailable Encounter Details Date Type Department Care Team Description 04/03/2009 Hospital Encounter HX [facility] Nicolasa Toribio D.O. Social History Tobacco Use Types Packs/Day Years Used Date Smoking Tobacco: Never Assessed Sex Assigned at Date Recorded Not on file documented as of this encounter Progress Notes Nicolasa Desouza D.O. - 04/03/2009 12:30 PM CDT Report PATIENT: [id number] NAME: YOLANDA LEONE ENCOUNTER: [id number] DATE OF : [birth year] SERVICE DATE: 04/03/09 PROVIDER: Nicolasa Desouza DO LOCATION: CLINIC DESCRIPTION: DEPO COME 330 CHARGES: 60810 INJECTION SUBCU/IM J1055 DEPO PROVERA, 150 MG CONTRACEPTIVE DIAGNOSES: V25.49 CONTRACEPT SURVEILL NEC MASTER ESTHETICIAN TEXT: E-Signed on 04/03/09 at 1554 by Nicolasa Desouza MD Patient Age: 18 Reason for Visit: DEPO COME 330 BMI: kg/m2 Allergies: No Known Drug Intolerances Allergies per Inpatient Nursing Documentation: [NKDA] [METAL] Nurse Only documentation: DEPRO PROVERA 150 MG GIVEN RGM LOT NUMBER OA1CT EXPERATION DATE 10/2011 NEXT INJECTION DUE 06/26/09 Source: [facility] AMCHXTRANSXSYS Document Id: [id number] documented in this encounter Plan of Treatment Not on filedocumented as of this encounter Visit Diagnoses Not on filedocumented in this encounter
--- OUTSIDE RECORDS SUMMARY | 2022-07-14 15:04 | XMS_ITS | Encounter Summary ---
:1990 Author Organization [facility] Address [address] [place] [address] Care Team Providers Name Role Phone Unavailable [...]
--- OUTSIDE RECORDS SUMMARY | 2022-07-14 15:04 | XMS_ITS | Encounter Summary ---
:1990 Author Organization [facility] Address [address] [place] [address] Care Team Providers Name Role Phone Unavailable Primary Care Provider Unavailable Encounter Details Date Type Department Care Team Description 08/18/2008 Hospital Encounter H[facility] Karlo Dawkins M.D. Social History Tobacco Use Types Packs/Day Years Used Date Smoking Tobacco: Never Assessed Sex Assigned at Date Recorded Not on file documented as of this encounter Plan of Treatment Not on filedocumented as of this encounter Visit Diagnoses Not on filedocumented in this encounter
--- OUTSIDE RECORDS SUMMARY | 2022-07-14 15:04 | XMS_ITS | Encounter Summary ---
:1990 Author Organization [facility] Address [address] [place] [address] Care Team Providers Name Role Phone Unavailable [...] 07/09/2009 9:10 AM CDT Report CLINIC NOTE [place], [place] PATIENT: [id number] NAME: YOLANDA LEONE ENCOUNTER: [id number] DATE OF : [birth year] SERVICE DATE: 07/09/09 PROVIDER: Rakan Dawkins MD LOCATION: CLINIC DESCRIPTION: COUGH CHARGES: 40004 OFFICE/OUTPATIENT [place], [place] [address] INFLUENZA VACCINE SPLIT VIRUS 3+ YOA 28091 IMMUNIZATION ADMIN, SINGLE DIAGNOSES: 786.2 COUGH V04.81 ND FOR PROPHYLACTIC VACCIN AND INOCULATION, INFLUENZA UNIT TECHNICIAN TEXT: E-Signed on 07/20/09 at 1729 by [...] pt is a smoker ?Packs per day: [id number] ?Cessation advise offered: Y Any use of alcohol? N Any user of caffeine? N Any recent travel? Y ?Travel Region(s): [facility] was reviewed. Source: [facility] AMCHXTRANSXSYS Document Id: [id number] documented in this encounter Plan of Treatment Not on filedocumented as of this encounter Visit Diagnoses Not on filedocumented in this encounter
--- OUTSIDE RECORDS SUMMARY | 2022-07-14 15:04 | XMS_ITS | Encounter Summary ---
:[address] [facility] Address [address] [place] [address] Care Team Providers Name Role Phone Unavailable Primary Care Provider Unavailable Encounter Details Date Type Department Care Team Description 08/04/[address] [facility] AUNicolasa Bettencourt D.O. Social History Tobacco Use Types Packs/Day Years Used Date Smoking Tobacco: Never Assessed Sex Assigned at Date Recorded Not on file documented as of this encounter Plan of Treatment Not on filedocumented as of this encounter Visit Diagnoses Not on filedocumented in this encounter
--- OUTSIDE RECORDS SUMMARY | 2022-07-14 15:04 | XMS_ITS | Encounter Summary ---
:1990 Author Organization [facility] Address [address] [place] [address] Care Team Providers Name Role Phone Unavailable Primary Care Provider Unavailable Encounter Details Date Type Department Care Team Description 09/11/2009 Hospital Encounter HX [facility] OBGYNicolasa Brice D.O. Social History Tobacco Use Types Packs/Day Years Used Date Smoking Tobacco: Never Assessed Sex Assigned at Date Recorded Not on file documented as of this encounter Progress Notes Nicolasa Desouza D.O. - 09/11/2009 12:30 PM CST Report [place], [place] PATIENT: [id number] NAME: YOLANDA LEONE ENCOUNTER: [id number] DATE OF : [birth year] SERVICE DATE: 09/11/09 PROVIDER: Nicolasa Desouza DO LOCATION: CLINIC DESCRIPTION: DEPO COME 330 CHARGES: 70437 INJECTION SUBCU/IM J1055 DEPO PROVERA, 150 MG CONTRACEPTIVE DIAGNOSES: V25.49 CONTRACEPT SURVEILL NEC Source: [facility] AMCHXTRANSXSYS Document Id: [id number] documented in this encounter Plan of Treatment Not on filedocumented as of this encounter Visit Diagnoses Not on filedocumented in this encounter
--- OUTSIDE RECORDS SUMMARY | 2022-07-14 15:04 | XMS_ITS | Encounter Summary ---
:1990 Author Organization [facility] Address [address] [place] [address] Care Team Providers Name Role Phone Unavailable [...]
--- OUTSIDE RECORDS SUMMARY | 2022-07-14 15:04 | XMS_ITS | Encounter Summary ---
:1990 Author Organization [facility] Address [address] [place] [address] Care Team Providers Name Role Phone Unavailable Primary Care Provider Unavailable Encounter Details Date Type Department Care Team Description 10/25/2008 Hospital Encounter [facility] Kacie Gloria APRN, C.N.P. Social History Tobacco Use Types Packs/Day Years Used Date Smoking Tobacco: Never Assessed Sex Assigned at Date Recorded Not on file documented as of this encounter Plan of Treatment Not on filedocumented as of this encounter Visit Diagnoses Not on filedocumented in this encounter
--- OUTSIDE RECORDS SUMMARY | 2022-07-14 15:04 | XMS_ITS | Encounter Summary ---
:[address] [facility] Address [address] [place] [address] Care Team Providers Name Role Phone Unavailable Primary Care Provider Unavailable Encounter Details Date Type Department Care Team Description 09/13/2008 Hospital Encounter [facility] dAan Griffin M.D. 200 [place], [place] [phone] (Wo rk) Social History Tobacco Use Types Packs/Day Years Used Date Smoking Tobacco: Never Assessed Sex Assigned at Date Recorded Not on file documented as of this encounter Plan of Treatment Not on filedocumented as of this encounter Visit Diagnoses Not on filedocumented in this encounter
--- OUTSIDE RECORDS SUMMARY | 2022-07-14 15:04 | XMS_ITS | Encounter Summary ---
:1990 Author Organization [facility] Address [address] [place] [address] Care Team Providers Name Role Phone Unavailable Primary Care Provider Unavailable Encounter Details Date Type Department Care Team Description 08/16/2008 Hospital Encounter [facility] [place] Karlo Dawkins M.D. Social History Tobacco Use Types Packs/Day Years Used Date Smoking Tobacco: Never Assessed Sex Assigned at Date Recorded Not on file documented as of this encounter Plan of Treatment Not on filedocumented as of this encounter Visit Diagnoses Not on filedocumented in this encounter
--- OUTSIDE RECORDS SUMMARY | 2022-07-14 15:04 | XMS_ITS | Encounter Summary ---
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 She is doing well. She has [...] to be within normal limits. [place] and [place] glands are normal. Vagina is pink. Normal rugae. Cervix is parous. Uterus is retroverted and of normal size. No adnexal masses noted. RAP:shaun cc: Rooming Doc Allergies Coded Allergies: No Known Drug Intolerances (Unknown,Unknown 06/25/10) Patient History Social History Social History was reviewed and updated. Marital Status: single Occupation: STUDENT Tobacco use or exposure? Y Type: pt is a smoker Packs per day: [id number] Cessation advise offered: Y Any use of alcohol? N Any user of caffeine? N Any recent travel? Y Travel Region(s): [place] PHQ-9 Screening Date: 06/25/10 PHQ-9 Score: 6 Surgery and Event History Tonsillectomy & Adenoidectomy, 01/30/05 Health Maint and Disease Mgmt Health Maintenance and Disease Management was reviewed and updated. Vitals Height: 165 cm Weight: 84.4 kg BSA: 2 m2 BMI: 31.0 kg/m2 Pulse: 80 Blood Pressure: 105/65 (Sitting, Right Arm) Additional Vitals Information Pain: N Information provided by: Elissa PAYNETERAMIMA Chief Complaint: PX/GRAVA 0/LMP DEPO/LAST PAP - [...] Gram Diagnostics: HIV 1,2 ( Today at [facility]) Dx - SCREEN FOR VENERAL DIS GC - Chlam DNA Probe ( Today at [facility]) Dx - SCREEN FOR VENERAL DIS RPR Serology ( Today at [facility]) Dx - SCREEN FOR VENERAL DIS Vaginosis Panel, DNA ( Today at [facility]) Dx - SCREEN FOR VENERAL DIS Hepatitis Bs Antigen ( Today at [facility]) Dx - SCREEN FOR VENERAL DIS at 1201. Source: [facility] AMCHXTRANSXSYS Document Id: [id number] documented in this encounter Plan of Treatment [...] Volume Laterality 06/25/2010 9:41 AM CDT Narrative [facility] - 10/16/19 11 11:56 PM MILITARY LOGISTICS SPECIALIST [facility] CYTOLOGY REPORT NAME: ??YOLANDA LEONE ?ATTENDING DR: Nicolasa Desouza ??DO SEX: ?? F ? PATIENTS LOCATION: [facility] [place] : ?? [birth year] ?PATIENT ACCOUNT: [id number] MR#: ?? [id number] PHONE: [phone] 06/25/2010 ?([id number]) Requesting Physician: ??Nicolasa dickens D.O. ??[phone] DIAGNOSIS: A. ??Cervix/Vaginal/Endocervix Routine: Satisfactory for evaluation. Partially obscuring inflammation. Negative for intraepithelial lesion or m alignancy. 06/26/2010 10:07 ??Interpreted by: LEONCIO Brewster(ASCP) Report electronically signed by: LEONCIO Brewster(ASCP) Director of Cytology: Elvia Loya SPECIMEN DESCRIPTION: A. ??Cervix/Vaginal/Endocervix Routine: ??Received 1 slide conventional smear. Historical Provider LAB HISTORICAL ORDERS Performing Organization Address City/State/ZIP Code Phon e Number [facility] documented in this encounter Visit Diagnoses Not on filedocumented in this encounter
--- OUTSIDE RECORDS SUMMARY | 2022-07-14 15:04 | XMS_ITS | Encounter Summary ---
:1990 Author Organization [facility] Address [address] [place] [address] Care Team Providers Name Role Phone Unavailable Primary Care Provider Unavailable Encounter Details Date Type Department Care Team Description 09/11/2009 Hospital Encounter HX [facility] AUNicolasa Bettencourt D.O. Social History Tobacco Use Types Packs/Day Years Used Date Smoking Tobacco: Never Assessed Sex Assigned at Date Recorded Not on file documented as of this encounter Plan of Treatment Not on filedocumented as of this encounter Visit Diagnoses Not on filedocumented in this encounter
--- OUTSIDE RECORDS SUMMARY | 2022-07-14 15:04 | XMS_ITS | Encounter Summary ---
:1990 Author Organization [facility] Address [address] [place] [address] Care Team Providers Name Role Phone Unavailable [...]
--- OUTSIDE RECORDS SUMMARY | 2022-07-14 15:05 | XMS_ITS | Encounter Summary ---
:1990 Author Organization [facility] Address [address] [place] [address] Care Team Providers Name Role Phone Unavailable Primary Care Provider Unavailable Encounter Details Date Type Department Care Team Description 07/05/2008 Hospital Encounter [facility] Adan Griffin M.D. [address] [place], [place] [phone] (Wo rk) Social History Tobacco Use Types Packs/Day Years Used Date Smoking Tobacco: Never Assessed Sex Assigned at Date Recorded Not on file documented as of this encounter Plan of Treatment Not on filedocumented as of this encounter Visit Diagnoses Not on filedocumented in this encounter
--- OUTSIDE RECORDS SUMMARY | 2022-07-14 15:05 | XMS_ITS | Encounter Summary ---
:1990 Author Organization [facility] Address [address] [place] [address] Care Team Providers Name Role Phone Unavailable Primary Care Provider Unavailable Encounter Details Date Type Department Care Team Description 07/03/2008 Hospital Encounter [facility] Anibal Kim M.D. 200 [place], [place] [phone] (Wo rk) Social History Tobacco Use Types Packs/Day Years Used Date Smoking Tobacco: Never Assessed Sex Assigned at Date Recorded Not on file documented as of this encounter Plan of Treatment Not on filedocumented as of this encounter Visit Diagnoses Not on filedocumented in this encounter
--- OUTSIDE RECORDS SUMMARY | 2022-07-14 15:05 | XMS_ITS | Encounter Summary ---
:1990 Author Organization [facility] Address [address] [place] [address] Care Team Providers Name Role Phone Unavailable Primary Care Provider Unavailable Encounter Details Date Type Department Care Team Description 05/30/2008 Hospital Encounter [facility] Anibal Kim M.D. 200 [place], [place] [phone] (Wo rk) Social History Tobacco Use Types Packs/Day Years Used Date Smoking Tobacco: Never Assessed Sex Assigned at Date Recorded Not on file documented as of this encounter Plan of Treatment Not on filedocumented as of this encounter Visit Diagnoses Not on filedocumented in this encounter
--- OUTSIDE RECORDS SUMMARY | 2022-07-14 15:05 | XMS_ITS | Encounter Summary ---
:1990 Author Organization [facility] Address [address] [place] [address] Care Team Providers Name Role Phone Unavailable Primary Care Provider Unavailable Encounter Details Date Type Department Care Team Description 02/22/2008 Hospital Encounter HX [facility] Nicolasa Desouza D.O. Social History Tobacco Use Types Packs/Day Years Used Date Smoking Tobacco: Never Assessed Sex Assigned at Date Recorded Not on file documented as of this encounter Plan of Treatment Not on filedocumented as of this encounter Visit Diagnoses Not on filedocumented in this encounter
--- OUTSIDE RECORDS SUMMARY | 2022-07-14 15:05 | XMS_ITS | Encounter Summary ---
:1990 Author Organization [facility] Address [address] [place] [address] Care Team Providers Name Role Phone Unavailable Primary Care Provider Unavailable Encounter Details Date Type Department Care Team Description 10/29/2007 Hospital Encounter [facility] AUNicolasa Bettencourt D.O. Social History Tobacco Use Types Packs/Day Years Used Date Smoking Tobacco: Never Assessed Sex Assigned at Date Recorded Not on file documented as of this encounter Plan of Treatment Not on filedocumented as of this encounter Visit Diagnoses Not on filedocumented in this encounter
--- OUTSIDE RECORDS SUMMARY | 2022-07-14 15:05 | XMS_ITS | Encounter Summary ---
:1990 Author Organization [facility] Address [address] [place] [address] Care Team Providers Name Role Phone Unavailable Primary Care Provider Unavailable Encounter Details Date Type Department Care Team Description 01/17/2008 [facility] C.N[facility]P., R.N. [address] [place] [address] (Wo rk) Social History Tobacco Use Types Packs/Day Years Used Date Smoking Tobacco: Never Assessed Sex Assigned at Date Recorded Not on file documented as of this encounter Plan of Treatment Not on filedocumented as of this encounter Visit Diagnoses Not on filedocumented in this encounter
--- OUTSIDE RECORDS SUMMARY | 2022-07-14 15:05 | XMS_ITS | Encounter Summary ---
:1990 Author Organization [facility] Address [address] [place] [address] Care Team Providers Name Role Phone Unavailable Primary Care Provider Unavailable Encounter Details Date Type Department Care Team Description 11/10/2007 Hospital Encounter HX [facility] Adam Stroud Social History Tobacco Use Types Packs/Day Years Used Date Smoking Tobacco: Never Assessed Sex Assigned at Date Recorded Not on file documented as of this encounter Plan of Treatment Not on filedocumented as of this encounter Visit Diagnoses Not on filedocumented in this encounter
--- OUTSIDE RECORDS SUMMARY | 2022-07-14 15:05 | XMS_ITS | Encounter Summary ---
:1990 Author Organization [facility] Address [address] [place] [address] Care Team Providers Name Role Phone Unavailable Primary Care Provider Unavailable Encounter Details Date Type Department Care Team Description 08/18/2007 Hospital Encounter [facility] Anibal Kim M.D. 200 [place], [place] [phone] (Wo rk) Social History Tobacco Use Types Packs/Day Years Used Date Smoking Tobacco: Never Assessed Sex Assigned at Date Recorded Not on file documented as of this encounter Plan of Treatment Not on filedocumented as of this encounter Visit Diagnoses Not on filedocumented in this encounter
--- OUTSIDE RECORDS SUMMARY | 2022-07-14 15:05 | XMS_ITS | Encounter Summary ---
:1990 Author Organization [facility] Address [address] [place] [address] Care Team Providers Name Role Phone Unavailable Primary Care Provider Unavailable Encounter Details Date Type Department Care Team Description 05/16/2008 Hospital Encounter HX [facility] AUNicolasa Bettencourt D.O. Social History Tobacco Use Types Packs/Day Years Used Date Smoking Tobacco: Never Assessed Sex Assigned at Date Recorded Not on file documented as of this encounter Plan of Treatment Not on filedocumented as of this encounter Visit Diagnoses Not on filedocumented in this encounter
--- OUTSIDE RECORDS SUMMARY | 2022-07-14 15:05 | XMS_ITS | Encounter Summary ---
:1990 Author Organization [facility] Address [address] [place] [address] Care Team Providers Name Role Phone Unavailable [...]
--- OUTSIDE RECORDS SUMMARY | 2022-07-14 15:05 | XMS_ITS | Encounter Summary ---
:1990 Author Organization [facility] Address [address] [place] [address] Care Team Providers Name Role Phone Unavailable Primary Care Provider Unavailable Encounter Details Date Type Department Care Team Description 02/22/2008 Hospital Encounter [facility]X [facility] AUNic[facility]a Bettencourt D.O. Social History Tobacco Use Types Packs/Day Years Used Date Smoking Tobacco: Never Assessed Sex Assigned at Date Recorded Not on file documented as of this encounter Plan of Treatment Not on filedocumented as of this encounter Visit Diagnoses Not on filedocumented in this encounter
--- OUTSIDE RECORDS SUMMARY | 2022-07-14 15:05 | XMS_ITS | Encounter Summary ---
:1990 Author Organization [facility] Address [address] [place] [address] Care Team Providers Name Role Phone Unavailable Primary Care Provider Unavailable Encounter Details Date Type Department Care Team Description 06/13/2008 [facility] R.N. [address] [place] [address] (Wo rk) Social History Tobacco Use Types Packs/Day Years Used Date Smoking Tobacco: Never Assessed Sex Assigned at Date Recorded Not on file documented as of this encounter Plan of Treatment Not on filedocumented as of this encounter Visit Diagnoses Not on filedocumented in this encounter
--- OUTSIDE RECORDS SUMMARY | 2022-07-14 15:05 | XMS_ITS | Encounter Summary ---
:1990 Author Organization [facility] Address [address] [place] [address] Care Team Providers Name Role Phone Unavailable Primary Care Provider Unavailable Encounter Details Date Type Department Care Team Description 05/26/2008 Hospital Encounter [facility] Anibal Kim M.D. 200 [place], [place] [phone] (Wo rk) Social History Tobacco Use Types Packs/Day Years Used Date Smoking Tobacco: Never Assessed Sex Assigned at Date Recorded Not on file documented as of this encounter Plan of Treatment Not on filedocumented as of this encounter Visit Diagnoses Not on filedocumented in this encounter
--- OUTSIDE RECORDS SUMMARY | 2022-07-14 15:05 | XMS_ITS | Encounter Summary ---
:1990 Author Organization [facility] Address [address] [place] [address] Care Team Providers Name Role Phone Unavailable Primary Care Provider Unavailable Encounter Details Date Type Department Care Team Description 04/14/2008 Hospital Encounter [facility] Anibal Kim M.D. [address] [place], [place] [phone] (Wo rk) Social History Tobacco Use Types Packs/Day Years Used Date Smoking Tobacco: Never Assessed Sex Assigned at Date Recorded Not on file documented as of this encounter Plan of Treatment Not on filedocumented as of this encounter Visit Diagnoses Not on filedocumented in this encounter
--- OUTSIDE RECORDS SUMMARY | 2022-07-14 15:05 | XMS_ITS | Encounter Summary ---
:1990 Author Organization [facility] Address [address] [place] [address] Care Team Providers Name Role Phone Unavailable Primary Care Provider Unavailable Encounter Details Date Type Department Care Team Description 05/30/2008 Hospital Encounter [facility] Adan Griffin M.D. [address] [place], [place] [phone] (Wo rk) Social History Tobacco Use Types Packs/Day Years Used Date Smoking Tobacco: Never Assessed Sex Assigned at Date Recorded Not on file documented as of this encounter Plan of Treatment Not on filedocumented as of this encounter Visit Diagnoses Not on filedocumented in this encounter
--- OUTSIDE RECORDS SUMMARY | 2022-07-14 15:05 | XMS_ITS | Encounter Summary ---
:1990 Author Organization [facility] Address [address] [place] [address] Care Team Providers Name Role Phone Unavailable Primary Care Provider Unavailable Encounter Details Date Type Department Care Team Description 08/10/2007 Hospital Encounter [facility] AUNicolasa Bettencourt D.O. Social History Tobacco Use Types Packs/Day Years Used Date Smoking Tobacco: Never Assessed Sex Assigned at Date Recorded Not on file documented as of this encounter Plan of Treatment Not on filedocumented as of this encounter Visit Diagnoses Not on filedocumented in this encounter
--- OUTSIDE RECORDS SUMMARY | 2022-07-14 15:05 | XMS_ITS | Encounter Summary ---
:1990 Author Organization [facility] Address [address] [place] [address] Care Team Providers Name Role Phone Unavailable Primary Care Provider Unavailable Encounter Details Date Type Department Care Team Description 03/15/2008 Hospital Encounter [facility] Anibal Kim M.D. 200 [place], [place] [phone] (Wo rk) Social History Tobacco Use Types Packs/Day Years Used Date Smoking Tobacco: Never Assessed Sex Assigned at Date Recorded Not on file documented as of this encounter Plan of Treatment Not on filedocumented as of this encounter Visit Diagnoses Not on filedocumented in this encounter
--- OUTSIDE RECORDS SUMMARY | 2022-07-14 15:05 | XMS_ITS | Encounter Summary ---
:1990 Author Organization [facility] Address [address] [place] [address] Care Team Providers Name Role Phone Unavailable Primary Care Provider Unavailable Encounter Details Date Type Department Care Team Description 03/15/2008 Hospital Encounter [facility] Anibal Kim M.D. 200 [place], [place] [phone] (Wo rk) Social History Tobacco Use Types Packs/Day Years Used Date Smoking Tobacco: Never Assessed Sex Assigned at Date Recorded Not on file documented as of this encounter Plan of Treatment Not on filedocumented as of this encounter Visit Diagnoses Not on filedocumented in this encounter
--- OUTSIDE RECORDS SUMMARY | 2022-07-14 15:05 | XMS_ITS | Encounter Summary ---
:1990 Author Organization [facility] Address [address] [place] [address] Care Team Providers Name Role Phone Unavailable [...]
--- OUTSIDE RECORDS SUMMARY | 2022-07-14 15:05 | XMS_ITS | Encounter Summary ---
:1990 Author Organization [facility] Address [address] [place] [address] Care Team Providers Name Role Phone Unavailable Primary Care Provider Unavailable Encounter Details Date Type Department Care Team Description 02/22/2008 Hospital Encounter [facility]X [facility] Ashley Doyle M.D. Social History Tobacco Use Types Packs/Day Years Used Date Smoking Tobacco: Never Assessed Sex Assigned at Date Recorded Not on file documented as of this encounter Plan of Treatment Not on filedocumented as of this encounter Visit Diagnoses Not on filedocumented in this encounter
--- OUTSIDE RECORDS SUMMARY | 2022-07-14 15:05 | XMS_ITS | Encounter Summary ---
:1990 Author Organization [facility] Address [address] [place] [address] Care Team Providers Name Role Phone Unavailable Primary Care Provider Unavailable Encounter Details Date Type Department Care Team Description 10/29/[address] [facility] AUNicolasa Bettencourt D.O. Social History Tobacco Use Types Packs/Day Years Used Date Smoking Tobacco: Never Assessed Sex Assigned at Date Recorded Not on file documented as of this encounter Plan of Treatment Not on filedocumented as of this encounter Visit Diagnoses Not on filedocumented in this encounter
--- OUTSIDE RECORDS SUMMARY | 2022-07-14 15:05 | XMS_ITS | Encounter Summary ---
:1990 Author Organization [facility] Address [address] [place] [address] Care Team Providers Name Role Phone Unavailable Primary Care Provider Unavailable Encounter Details Date Type Department Care Team Description 08/18/2007 Hospital Encounter [facility] Anibal Kim M.D. [address] [place], [place] [phone] (Wo rk) Social History Tobacco Use Types Packs/Day Years Used Date Smoking Tobacco: Never Assessed Sex Assigned at Date Recorded Not on file documented as of this encounter Plan of Treatment Not on filedocumented as of this encounter Visit Diagnoses Not on filedocumented in this encounter
--- OUTSIDE RECORDS SUMMARY | 2022-07-14 15:06 | XMS_ITS | Encounter Summary ---
:1990 Author Organization [facility] Address [address] [place] [address] Care Team Providers Name Role Phone Unavailable Primary Care Provider Unavailable Encounter Details Date Type Department Care Team Description 12/22/2005 Hospital Encounter HX [facility] Adam Stroud Social History Tobacco Use Types Packs/Day Years Used Date Smoking Tobacco: Never Assessed Sex Assigned at Date Recorded Not on file documented as of this encounter Plan of Treatment Not on filedocumented as of this encounter Visit Diagnoses Not on filedocumented in this encounter
--- OUTSIDE RECORDS SUMMARY | 2022-07-14 15:06 | XMS_ITS | Encounter Summary ---
:1990 Author Organization [facility] Address [address] [place] [address] Care Team Providers Name Role Phone Unavailable Primary Care Provider Unavailable Encounter Details Date Type Department Care Team Description 05/07/2006 Hospital Encounter HX [facility] O[facility] Provider, Histor ical Social History Tobacco Use Types Packs/Day Years Used Date Smoking Tobacco: Never Assessed Sex Assigned at Date Recorded Not on file documented as of this encounter Plan of Treatment Not on filedocumented as of this encounter Visit Diagnoses Not on filedocumented in this encounter
--- OUTSIDE RECORDS SUMMARY | 2022-07-14 15:06 | XMS_ITS | Encounter Summary ---
:1990 Author Organization [facility] Address [address] [place] [address] Care Team Providers Name Role Phone Unavailable Primary Care Provider Unavailable Encounter Details Date Type Department Care Team Description 06/16/2007 Hospital Encounter HX [facility] Adam Stroud Social History Tobacco Use Types Packs/Day Years Used Date Smoking Tobacco: Never Assessed Sex Assigned at Date Recorded Not on file documented as of this encounter Plan of Treatment Not on filedocumented as of this encounter Visit Diagnoses Not on filedocumented in this encounter
--- OUTSIDE RECORDS SUMMARY | 2022-07-14 15:06 | XMS_ITS | Encounter Summary ---
:1990 Author Organization [facility] Address [address] [place] [address] Care Team Providers Name Role Phone Unavailable Primary Care Provider Unavailable Encounter Details Date Type Department Care Team Description 02/18/2006 Hospital Encounter [facility]X [facility] Adan Kim M.D. [address] [place], [place] [phone] (Wo rk) Social History Tobacco Use Types Packs/Day Years Used Date Smoking Tobacco: Never Assessed Sex Assigned at Date Recorded Not on file documented as of this encounter Plan of Treatment Not on filedocumented as of this encounter Visit Diagnoses Not on filedocumented in this encounter
--- OUTSIDE RECORDS SUMMARY | 2022-07-14 15:06 | XMS_ITS | Encounter Summary ---
:1990 Author Organization [facility] Address [address] [place] [address] Care Team Providers Name Role Phone Unavailable Primary Care Provider Unavailable Encounter Details Date Type Department Care Team Description 11/25/2005 Hospital Encounter HX [facility] OBGYN Provider, Histor ical Social History Tobacco Use Types Packs/Day Years Used Date Smoking Tobacco: Never Assessed Sex Assigned at Date Recorded Not on file documented as of this encounter Plan of Treatment Not on filedocumented as of this encounter Visit Diagnoses Not on filedocumented in this encounter
--- OUTSIDE RECORDS SUMMARY | 2022-07-14 15:06 | XMS_ITS | Encounter Summary ---
:1990 Author Organization [facility] Address [address] [place] [address] Care Team Providers Name Role Phone Unavailable Primary Care Provider Unavailable Encounter Details Date Type Department Care Team Description 12/09/2005 Hospital Encounter [facility] Anibal Donohue M.D. [address] [place] [address] (Wo rk) Social History Tobacco Use Types Packs/Day Years Used Date Smoking Tobacco: Never Assessed Sex Assigned at Date Recorded Not on file documented as of this encounter Plan of Treatment Not on filedocumented as of this encounter Visit Diagnoses Not on filedocumented in this encounter
--- OUTSIDE RECORDS SUMMARY | 2022-07-14 15:06 | XMS_ITS | Encounter Summary ---
:1990 Author Organization [facility] Address [address] [place] [address] Care Team Providers Name Role Phone Unavailable Primary Care Provider Unavailable Encounter Details Date Type Department Care Team Description 02/04/2006 Hospital Encounter [facility] Anibal Donohue M.D. [address] [place] [address] (Wo rk) Social History Tobacco Use Types Packs/Day Years Used Date Smoking Tobacco: Never Assessed Sex Assigned at Date Recorded Not on file documented as of this encounter Plan of Treatment Not on filedocumented as of this encounter Visit Diagnoses Not on filedocumented in this encounter
--- OUTSIDE RECORDS SUMMARY | 2022-07-14 15:06 | XMS_ITS | Encounter Summary ---
:1992 Author Organization [facility] Address [address] [place] [address] Care Team Providers Name Role Phone Unavailable Primary Care Provider Unavailable Encounter Details Date Type Department Care Team Description 01/12/2006 Hospital Encounter [facility] Anibal Donohue M.D. 200 [place] [address] (Wo rk) Social History Tobacco Use Types Packs/Day Years Used Date Smoking Tobacco: Never Assessed Sex Assigned at Date Recorded Not on file documented as of this encounter Plan of Treatment Not on filedocumented as of this encounter Visit Diagnoses Not on filedocumented in this encounter
--- OUTSIDE RECORDS SUMMARY | 2022-07-14 15:06 | XMS_ITS | Encounter Summary ---
:1990 Author Organization [facility] Address [address] [place] [address] Care Team Providers Name Role Phone Unavailable Primary Care Provider Unavailable Encounter Details Date Type Department Care Team Description 10/01/2005 Hospital Encounter [facility] Anibal Donohue M.D. 200 [place] [address] (Wo rk) Social History Tobacco Use Types Packs/Day Years Used Date Smoking Tobacco: Never Assessed Sex Assigned at Date Recorded Not on file documented as of this encounter Plan of Treatment Not on filedocumented as of this encounter Visit Diagnoses Not on filedocumented in this encounter
--- OUTSIDE RECORDS SUMMARY | 2022-07-14 15:06 | XMS_ITS | Encounter Summary ---
:1992 Author Organization [facility] Address [address] [place] [address] Care Team Providers Name Role Phone Unavailable Primary Care Provider Unavailable Encounter Details Date Type Department Care Team Description 05/06/2006 Hospital Encounter [facility]X [facility] Anibal Donohue M.D. 200 [place] [address] (Wo rk) Social History Tobacco Use Types Packs/Day Years Used Date Smoking Tobacco: Never Assessed Sex Assigned at Date Recorded Not on file documented as of this encounter Plan of Treatment Not on filedocumented as of this encounter Visit Diagnoses Not on filedocumented in this encounter
--- OUTSIDE RECORDS SUMMARY | 2022-07-14 15:06 | XMS_ITS | Encounter Summary ---
:1992 Author Organization [facility] Address [address] [place] [address] Care Team Providers Name Role Phone Unavailable Primary Care Provider Unavailable Encounter Details Date Type Department Care Team Description 08/04/2007 Hospital Encounter [facility] Adan Griffin M.D. [address] [place], [place] [phone] (Wo rk) Social History Tobacco Use Types Packs/Day Years Used Date Smoking Tobacco: Never Assessed Sex Assigned at Date Recorded Not on file documented as of this encounter Plan of Treatment Not on filedocumented as of this encounter Visit Diagnoses Not on filedocumented in this encounter
--- OUTSIDE RECORDS SUMMARY | 2022-07-14 15:06 | XMS_ITS | Encounter Summary ---
:1992 Author Organization [facility] Address [address] [place] [address] Care Team Providers Name Role Phone Unavailable Primary Care Provider Unavailable Encounter Details Date Type Department Care Team Description 03/23/2006 Hospital Encounter [facility] Adan Griffin M.D. [address] [place], [place] [phone] (Wo rk) Social History Tobacco Use Types Packs/Day Years Used Date Smoking Tobacco: Never Assessed Sex Assigned at Date Recorded Not on file documented as of this encounter Plan of Treatment Not on filedocumented as of this encounter Visit Diagnoses Not on filedocumented in this encounter
--- OUTSIDE RECORDS SUMMARY | 2022-07-14 15:06 | XMS_ITS | Encounter Summary ---
:1990 Author Organization [facility] Address [address] [place] [address] Care Team Providers Name Role Phone Unavailable Primary Care Provider Unavailable Encounter Details Date Type Department Care Team Description 12/10/2005 Hospital Encounter [facility] Adan Kim M.D. [address] [place], [place] [phone] (Wo rk) Social History Tobacco Use Types Packs/Day Years Used Date Smoking Tobacco: Never Assessed Sex Assigned at Date Recorded Not on file documented as of this encounter Plan of Treatment Not on filedocumented as of this encounter Visit Diagnoses Not on filedocumented in this encounter
--- OUTSIDE RECORDS SUMMARY | 2022-07-14 15:06 | XMS_ITS | Encounter Summary ---
:1990 Author Organization [facility] Address [address] [place] [address] Care Team Providers Name Role Phone Unavailable [...]
--- OUTSIDE RECORDS SUMMARY | 2022-07-14 15:06 | XMS_ITS | Encounter Summary ---
:1992 Author Organization [facility] Address [address] [place] [address] Care Team Providers Name Role Phone Unavailable Primary Care Provider Unavailable Encounter Details Date Type Department Care Team Description 02/17/2006 Hospital Encounter [facility]X [facility] Anibal Donohue M.D. 200 [place] [address] (Wo rk) Social History Tobacco Use Types Packs/Day Years Used Date Smoking Tobacco: Never Assessed Sex Assigned at Date Recorded Not on file documented as of this encounter Plan of Treatment Not on filedocumented as of this encounter Visit Diagnoses Not on filedocumented in this encounter
--- OUTSIDE RECORDS SUMMARY | 2022-07-14 15:06 | XMS_ITS | Encounter Summary ---
:1990 Author Organization [facility] Address [address] [place] [address] Care Team Providers Name Role Phone Unavailable Primary Care Provider Unavailable Encounter Details Date Type Department Care Team Description 12/22/2005 Hospital Encounter HX [facility] Adam Stroud Social History Tobacco Use Types Packs/Day Years Used Date Smoking Tobacco: Never Assessed Sex Assigned at Date Recorded Not on file documented as of this encounter Plan of Treatment Not on filedocumented as of this encounter Visit Diagnoses Not on filedocumented in this encounter
--- OUTSIDE RECORDS SUMMARY | 2022-07-14 15:06 | XMS_ITS | Encounter Summary ---
:1992 Author Organization [facility] Address [address] [place] [address] Care Team Providers Name Role Phone Unavailable Primary Care Provider Unavailable Encounter Details Date Type Department Care Team Description 11/04/2005 Hospital Encounter [facility]X [facility] Anibal Kim M.D. [address] [place], [place] [phone] (Wo rk) Social History Tobacco Use Types Packs/Day Years Used Date Smoking Tobacco: Never Assessed Sex Assigned at Date Recorded Not on file documented as of this encounter Plan of Treatment Not on filedocumented as of this encounter Visit Diagnoses Not on filedocumented in this encounter
--- OUTSIDE RECORDS SUMMARY | 2022-07-14 15:06 | XMS_ITS | Encounter Summary ---
:[address] [facility] Address [address] [place] [address] Care Team Providers Name Role Phone Unavailable Primary Care Provider Unavailable Encounter Details Date Type Department Care Team Description 02/16/2006 Hospital Encounter HX [facility] AUNicolasa Bettencourt D.O. Social History Tobacco Use Types Packs/Day Years Used Date Smoking Tobacco: Never Assessed Sex Assigned at Date Recorded Not on file documented as of this encounter Plan of Treatment Not on filedocumented as of this encounter Visit Diagnoses Not on filedocumented in this encounter
--- OUTSIDE RECORDS SUMMARY | 2022-07-14 15:06 | XMS_ITS | Encounter Summary ---
:1990 Author Organization [facility] Address [address] [place] [address] Care Team Providers Name Role Phone Unavailable Primary Care Provider Unavailable Encounter Details Date Type Department Care Team Description 11/21/2005 Hospital Encounter HX [facility] Guy Valera, Ruslan [address] [place], [place] [phone] (Wo rk) Social History Tobacco Use Types Packs/Day Years Used Date Smoking Tobacco: Never Assessed Sex Assigned at Date Recorded Not on file documented as of this encounter Plan of Treatment Not on filedocumented as of this encounter Visit Diagnoses Not on filedocumented in this encounter
--- OUTSIDE RECORDS SUMMARY | 2022-07-14 15:06 | XMS_ITS | Encounter Summary ---
:1990 Author Organization [facility] Address [address] [place] [address] Care Team Providers Name Role Phone Unavailable Primary Care Provider Unavailable Encounter Details Date Type Department Care Team Description 01/13/2006 Hospital Encounter [facility] Adan Kim M.D. [address] [place], [place] [phone] (Wo rk) Social History Tobacco Use Types Packs/Day Years Used Date Smoking Tobacco: Never Assessed Sex Assigned at Date Recorded Not on file documented as of this encounter Plan of Treatment Not on filedocumented as of this encounter Visit Diagnoses Not on filedocumented in this encounter
--- OUTSIDE RECORDS SUMMARY | 2022-07-14 15:06 | XMS_ITS | Encounter Summary ---
:1992 Author Organization [facility] Address [address] [place] [address] Care Team Providers Name Role Phone Unavailable Primary Care Provider Unavailable Encounter Details Date Type Department Care Team Description 05/04/2006 Hospital Encounter HX [facility] [place] Karlo Dawkins M.D. Social History Tobacco Use Types Packs/Day Years Used Date Smoking Tobacco: Never Assessed Sex Assigned at Date Recorded Not on file documented as of this encounter Plan of Treatment Not on filedocumented as of this encounter Visit Diagnoses Not on filedocumented in this encounter
--- OUTSIDE RECORDS SUMMARY | 2022-07-14 15:06 | XMS_ITS | Encounter Summary ---
:1990 Author Organization [facility] Address [address] [place] [address] Care Team Providers Name Role Phone Unavailable Primary Care Provider Unavailable Encounter Details Date Type Department Care Team Description 10/06/2005 Hospital Encounter [facility]NT Anibal Kim M.D. [address] [place], [place] [phone] (Wo rk) Social History Tobacco Use Types Packs/Day Years Used Date Smoking Tobacco: Never Assessed Sex Assigned at Date Recorded Not on file documented as of this encounter Plan of Treatment Not on filedocumented as of this encounter Visit Diagnoses Not on filedocumented in this encounter
--- OUTSIDE RECORDS SUMMARY | 2022-07-14 15:06 | XMS_ITS | Encounter Summary ---
:[address] [facility] Address [address] [place] [address] Care Team Providers Name Role Phone Unavailable Primary Care Provider Unavailable Encounter Details Date Type Department Care Team Description 02/16/2006 Hospital Encounter [facility] Adan Griffin M.D. [address] [place], [place] [phone] (Wo rk) Social History Tobacco Use Types Packs/Day Years Used Date Smoking Tobacco: Never Assessed Sex Assigned at Date Recorded Not on file documented as of this encounter Plan of Treatment Not on filedocumented as of this encounter Visit Diagnoses Not on filedocumented in this encounter
--- OUTSIDE RECORDS SUMMARY | 2022-07-14 15:06 | XMS_ITS | Encounter Summary ---
:1990 Author Organization [facility] Address [address] [place] [address] Care Team Providers Name Role Phone Unavailable Primary Care Provider Unavailable Encounter Details Date Type Department Care Team Description 01/23/2006 Hospital Encounter HX [facility] Guy Valera D.O. [address] [place], [place] [address] (Wo rk) Social History [...] 3:03 PM CDT Originally Signed By Contributor_system, [facility] [place]_HX_RAD_SYS Nasal bone views: Reason for exam: Nose injury. No definite nasal fracture or acute bony abnormality. Small vascular grooves of the nasal bone noted. Finding s conveyed by telephone to Cristal Solis. Electronically Signed 01/23/2006 Reported By: Brandt Castillo ?? Transcribed: 01/23/2006 ([id number]) ??[facility] [place].AU CC: [place] Cristal Ruiz ??COOPER Solis Procedure Note Provider, Dg Villalba - 03/04/2017F ormatting of this note might be different from the original. Originally Signed By Contributor_system, [facility] [place]_HX_RAD_SYS Nasal bone views: Reason for exam: Nose injury. No definite nasal fracture or acute bony abnormality. Small vascular grooves of the nasal bone noted. Finding s conveyed by telephone to Cristal Solis. Electronically Signed 01/23/2006 Reported By: Brandt Castillo MD Transcribed: 01/23/2006 ([id number]) [facility] [place].AU CC: [place] Cristal Solis Historical Provider IMG DIAGNOSTIC IMAGING PROCE SRUTHI documented in this encounter Visit Diagnoses Not on filedocumented in this encounter
--- OUTSIDE RECORDS SUMMARY | 2022-07-14 15:06 | XMS_ITS | Encounter Summary ---
:1990 Author Organization [facility] Address [address] [place] [address] Care Team Providers Name Role Phone Unavailable Primary Care Provider Unavailable Encounter Details Date Type Department Care Team Description 11/04/2006 Hospital Encounter [facility] So[facility], C.N.P., R.N. [address] [place] [address] (Wo rk) Social History Tobacco Use Types Packs/Day Years Used Date Smoking Tobacco: Never Assessed Sex Assigned at Date Recorded Not on file documented as of this encounter Plan of Treatment Not on filedocumented as of this encounter Visit Diagnoses Not on filedocumented in this encounter
--- OUTSIDE RECORDS SUMMARY | 2022-07-14 15:06 | XMS_ITS | Encounter Summary ---
:1990 Author Organization [facility] Address [address] [place] [address] Care Team Providers Name Role Phone Unavailable Primary Care Provider Unavailable Encounter Details Date Type Department Care Team Description 10/06/2005 Hospital Encounter HX [facility] Guy Valera, Ruslan [address] [place], [place] [address] (Wo rk) Social History Tobacco Use Types Packs/Day Years Used Date Smoking Tobacco: Never Assessed Sex Assigned at Date Recorded Not on file documented as of this encounter Plan of Treatment Not on filedocumented as of this encounter Visit Diagnoses Not on filedocumented in this encounter
--- OUTSIDE RECORDS SUMMARY | 2022-07-14 15:06 | XMS_ITS | Encounter Summary ---
:[address] [facility] Address [address] [place] [address] Care Team Providers Name Role Phone Unavailable Primary Care Provider Unavailable Encounter Details Date Type Department Care Team Description 03/20/2006 Hospital Encounter [facility] Anibal Donohue M.D. [address] [place] [address] (Wo rk) Social History Tobacco Use Types Packs/Day Years Used Date Smoking Tobacco: Never Assessed Sex Assigned at Date Recorded Not on file documented as of this encounter Plan of Treatment Not on filedocumented as of this encounter Visit Diagnoses Not on filedocumented in this encounter
--- OUTSIDE RECORDS SUMMARY | 2022-07-14 15:06 | XMS_ITS | Encounter Summary ---
:1990 Author Organization [facility] Address [address] [place] [address] Care Team Providers Name Role Phone Unavailable Primary Care Provider Unavailable Encounter Details Date Type Department Care Team Description 10/06/2005 Hospital Encounter [facility] Anibal Kim M.D. [address] [place], [place] [phone] (Wo rk) Social History Tobacco Use Types Packs/Day Years Used Date Smoking Tobacco: Never Assessed Sex Assigned at Date Recorded Not on file documented as of this encounter Plan of Treatment Not on filedocumented as of this encounter Visit Diagnoses Not on filedocumented in this encounter
--- OUTSIDE RECORDS SUMMARY | 2022-07-14 15:06 | XMS_ITS | Encounter Summary ---
:1990 Author Organization [facility] Address [address] [place] [address] Care Team Providers Name Role Phone Unavailable Primary Care Provider Unavailable Encounter Details Date Type Department Care Team Description 07/29/2006 Hospital Encounter HX [facility] Guy Valera, Ruslan [address] [place], [place] [address] (Wo rk) Social History Tobacco Use Types Packs/Day Years Used Date Smoking Tobacco: Never Assessed Sex Assigned at Date Recorded Not on file documented as of this encounter Plan of Treatment Not on filedocumented as of this encounter Visit Diagnoses Not on filedocumented in this encounter
--- OUTSIDE RECORDS SUMMARY | 2022-07-14 15:06 | XMS_ITS | Encounter Summary ---
:1990 Author Organization [facility] Address [address] [place] [address] Care Team Providers Name Role Phone Unavailable Primary Care Provider Unavailable Encounter Details Date Type Department Care Team Description 11/04/2005 Hospital Encounter HX [facility] Guy Valera, Ruslan [address] [place], [place] [address] (Wo rk) Social History Tobacco Use Types Packs/Day Years Used Date Smoking Tobacco: Never Assessed Sex Assigned at Date Recorded Not on file documented as of this encounter Plan of Treatment Not on filedocumented as of this encounter Visit Diagnoses Not on filedocumented in this encounter
--- OUTSIDE RECORDS SUMMARY | 2022-07-14 15:06 | XMS_ITS | Encounter Summary ---
:1990 Author Organization [facility] Address [address] [place] [address] Care Team Providers Name Role Phone Unavailable Primary Care Provider Unavailable Encounter Details Date Type Department Care Team Description 11/04/2005 Hospital Encounter [facility] Adan Griffin M.D. [address] [place], [place] [phone] (Wo rk) Social History Tobacco Use Types Packs/Day Years Used Date Smoking Tobacco: Never Assessed Sex Assigned at Date Recorded Not on file documented as of this encounter Plan of Treatment Not on filedocumented as of this encounter Visit Diagnoses Not on filedocumented in this encounter
--- OUTSIDE RECORDS SUMMARY | 2022-07-14 15:06 | XMS_ITS | Encounter Summary ---
:1990 Author Organization [facility] Address [address] [place] [address] Care Team Providers Name Role Phone Unavailable Primary Care Provider Unavailable Encounter Details Date Type Department Care Team Description 04/06/2006 Hospital Encounter HX [facility] PS[facility] Adam Stroud Social History Tobacco Use Types Packs/Day Years Used Date Smoking Tobacco: Never Assessed Sex Assigned at Date Recorded Not on file documented as of this encounter Plan of Treatment Not on filedocumented as of this encounter Visit Diagnoses Not on filedocumented in this encounter
--- OUTSIDE RECORDS SUMMARY | 2022-07-14 15:07 | XMS_ITS | Encounter Summary ---
:1990 Author Organization [facility] Address [address] [place] [address] Care Team Providers Name Role Phone Unavailable Primary Care Provider Unavailable Encounter Details Date Type Department Care Team Description 02/12/2005 Hospital Encounter [facility] Yvon Castillo M.D. [address] [place], [place] [address] (Wo rk) Social History Tobacco Use Types Packs/Day Years Used Date Smoking Tobacco: Never Assessed Sex Assigned at Date Recorded Not on file documented as of this encounter Plan of Treatment Not on filedocumented as of this encounter Visit Diagnoses Not on filedocumented in this encounter
--- OUTSIDE RECORDS SUMMARY | 2022-07-14 15:07 | XMS_ITS | Encounter Summary ---
:[address] [facility] Address [address] [place] [address] Care Team Providers Name Role Phone Unavailable Primary Care Provider Unavailable Encounter Details Date Type Department Care Team Description 09/25/2005 Hospital Encounter HX [facility] Guy Valera, Ruslan [address] [place], [place] [address] (Wo rk) Social History Tobacco Use Types Packs/Day Years Used Date Smoking Tobacco: Never Assessed Sex Assigned at Date Recorded Not on file documented as of this encounter Plan of Treatment Not on filedocumented as of this encounter Visit Diagnoses Not on filedocumented in this encounter
--- OUTSIDE RECORDS SUMMARY | 2022-07-14 15:07 | XMS_ITS | Encounter Summary ---
:1990 Author Organization [facility] Address [address] [place] [address] Care Team Providers Name Role Phone Unavailable Primary Care Provider Unavailable Encounter Details Date Type Department Care Team Description 07/28/2005 Hospital Encounter [facility] Anibal Kim M.D. [address] [place], [place] [phone] (Wo rk) Social History Tobacco Use Types Packs/Day Years Used Date Smoking Tobacco: Never Assessed Sex Assigned at Date Recorded Not on file documented as of this encounter Plan of Treatment Not on filedocumented as of this encounter Visit Diagnoses Not on filedocumented in this encounter
--- OUTSIDE RECORDS SUMMARY | 2022-07-14 15:07 | XMS_ITS | Encounter Summary ---
:1990 Author Organization [facility] Address [address] [place] [address] Care Team Providers Name Role Phone Unavailable Primary Care Provider Unavailable Encounter Details Date Type Department Care Team Description 06/30/2005 Hospital Encounter HX [facility] Adam Stroud Social History Tobacco Use Types Packs/Day Years Used Date Smoking Tobacco: Never Assessed Sex Assigned at Date Recorded Not on file documented as of this encounter Plan of Treatment Not on filedocumented as of this encounter Visit Diagnoses Not on filedocumented in this encounter
--- OUTSIDE RECORDS SUMMARY | 2022-07-14 15:07 | XMS_ITS | Encounter Summary ---
:1990 Author Organization [facility] Address [address] [place] [address] Care Team Providers Name Role Phone Unavailable Primary Care Provider Unavailable Encounter Details Date Type Department Care Team Description 09/02/2005 Hospital Encounter HX [facility] OBGYN Provider, Histor ical Social History Tobacco Use Types Packs/Day Years Used Date Smoking Tobacco: Never Assessed Sex Assigned at Date Recorded Not on file documented as of this encounter Plan of Treatment Not on filedocumented as of this encounter Visit Diagnoses Not on filedocumented in this encounter
--- OUTSIDE RECORDS SUMMARY | 2022-07-14 15:07 | XMS_ITS | Encounter Summary ---
:1990 Author Organization [facility] Address [address] [place] [address] Care Team Providers Name Role Phone Unavailable Primary Care Provider Unavailable Encounter Details Date Type Department Care Team Description 06/30/2005 Hospital Encounter HX [facility] Adam Stroud Social History Tobacco Use Types Packs/Day Years Used Date Smoking Tobacco: Never Assessed Sex Assigned at Date Recorded Not on file documented as of this encounter Plan of Treatment Not on filedocumented as of this encounter Visit Diagnoses Not on filedocumented in this encounter
--- OUTSIDE RECORDS SUMMARY | 2022-07-14 15:07 | XMS_ITS | Encounter Summary ---
:1990 Author Organization [facility] Address [address] [place] [address] Care Team Providers Name Role Phone Unavailable Primary Care Provider Unavailable Encounter Details Date Type Department Care Team Description 05/09/2005 Hospital Encounter [facility] Guy Valera, Ruslan [address] [place], [place] [phone] (Wo rk) Social History Tobacco Use Types Packs/Day Years Used Date Smoking Tobacco: Never Assessed Sex Assigned at Date Recorded Not on file documented as of this encounter Plan of Treatment Not on filedocumented as of this encounter Visit Diagnoses Not on filedocumented in this encounter
--- OUTSIDE RECORDS SUMMARY | 2022-07-14 15:07 | XMS_ITS | Encounter Summary ---
:1990 Author Organization [facility] Address [address] [place] [address] Care Team Providers Name Role Phone Unavailable Primary Care Provider Unavailable Encounter Details Date Type Department Care Team Description 04/07/2005 Hospital Encounter [facility] Guy Valera, Ruslan [address] [place], [place] [address] (Wo rk) Social History Tobacco Use Types Packs/Day Years Used Date Smoking Tobacco: Never Assessed Sex Assigned at Date Recorded Not on file documented as of this encounter Plan of Treatment Not on filedocumented as of this encounter Visit Diagnoses Not on filedocumented in this encounter
--- OUTSIDE RECORDS SUMMARY | 2022-07-14 15:07 | XMS_ITS | Encounter Summary ---
:1990 Author Organization [facility] Address [address] [place] [address] Care Team Providers Name Role Phone Unavailable [...]
--- OUTSIDE RECORDS SUMMARY | 2022-07-14 15:07 | XMS_ITS | Encounter Summary ---
:1990 Author Organization [facility] Address [address] [place] [address] Care Team Providers Name Role Phone Unavailable Primary Care Provider Unavailable Encounter Details Date Type Department Care Team Description 07/22/2005 Hospital Encounter [facility] Anibal Kim M.D. [address] [place], [place] [phone] (Wo rk) Social History Tobacco Use Types Packs/Day Years Used Date Smoking Tobacco: Never Assessed Sex Assigned at Date Recorded Not on file documented as of this encounter Plan of Treatment Not on filedocumented as of this encounter Visit Diagnoses Not on filedocumented in this encounter
--- OUTSIDE RECORDS SUMMARY | 2022-07-14 15:07 | XMS_ITS | Encounter Summary ---
:1990 Author Organization [facility] Address [address] [place] [address] Care Team Providers Name Role Phone Unavailable Primary Care Provider Unavailable Encounter Details Date Type Department Care Team Description 09/03/2005 Hospital Encounter [facility] Anibal Donohue M.D. [address] [place] [phone] (Wo rk) Social History Tobacco Use Types Packs/Day Years Used Date Smoking Tobacco: Never Assessed Sex Assigned at Date Recorded Not on file documented as of this encounter Plan of Treatment Not on filedocumented as of this encounter Visit Diagnoses Not on filedocumented in this encounter
--- OUTSIDE RECORDS SUMMARY | 2022-07-14 15:07 | XMS_ITS | Encounter Summary ---
:1990 Author Organization [facility] Address [address] [place] [address] Care Team Providers Name Role Phone Unavailable Primary Care Provider Unavailable Encounter Details Date Type Department Care Team Description 07/02/2005 Hospital Encounter [facility]X [facility] Guy Valera, Ruslan [address] [place], [place] [address] (Wo rk) Social History Tobacco Use Types Packs/Day Years Used Date Smoking Tobacco: Never Assessed Sex Assigned at Date Recorded Not on file documented as of this encounter Plan of Treatment Not on filedocumented as of this encounter Visit Diagnoses Not on filedocumented in this encounter
--- OUTSIDE RECORDS SUMMARY | 2022-07-14 15:07 | XMS_ITS | Encounter Summary ---
:1990 Author Organization [facility] Address [address] [place] [address] Care Team Providers Name Role Phone Unavailable Primary Care Provider Unavailable Encounter Details Date Type Department Care Team Description 03/17/2005 Hospital Encounter HX [facility] PS[facility] Adam Stroud Social History Tobacco Use Types Packs/Day Years Used Date Smoking Tobacco: Never Assessed Sex Assigned at Date Recorded Not on file documented as of this encounter Plan of Treatment Not on filedocumented as of this encounter Visit Diagnoses Not on filedocumented in this encounter
--- OUTSIDE RECORDS SUMMARY | 2022-07-14 15:08 | XMS_ITS | Encounter Summary ---
:1990 Author Organization [facility] Address [address] [place] [address] Care Team Providers Name Role Phone Unavailable Primary Care Provider Unavailable Encounter Details Date Type Department Care Team Description 12/04/2003 Hospital Encounter [facility] Provider, Histor ical Social History Tobacco Use Types Packs/Day Years Used Date Smoking Tobacco: Never Assessed Sex Assigned at Date Recorded Not on file documented as of this encounter Plan of Treatment Not on filedocumented as of this encounter Visit Diagnoses Not on filedocumented in this encounter
--- OUTSIDE RECORDS SUMMARY | 2022-07-14 15:08 | XMS_ITS | Encounter Summary ---
:1990 Author Organization [facility] Address [address] [place] [address] Care Team Providers Name Role Phone Unavailable Primary Care Provider Unavailable Encounter Details Date Type Department Care Team Description 12/10/2004 Hospital Encounter [facility] Yvon Castillo M.D. [address] [place], [place] [address] (Wo rk) Social History Tobacco Use Types Packs/Day Years Used Date Smoking Tobacco: Never Assessed Sex Assigned at Date Recorded Not on file documented as of this encounter Plan of Treatment Not on filedocumented as of this encounter Visit Diagnoses Not on filedocumented in this encounter
--- OUTSIDE RECORDS SUMMARY | 2022-07-14 15:08 | XMS_ITS | Encounter Summary ---
:1990 Author Organization [facility] Address [address] [place] [address] Care Team Providers Name Role Phone Unavailable Primary Care Provider Unavailable Encounter Details Date Type Department Care Team Description 08/10/2002 Hospital Encounter HX [facility] Guy Valera, Ruslan [address] [place], [place] [address] (Wo rk) Social History Tobacco Use Types Packs/Day Years Used Date Smoking Tobacco: Never Assessed Sex Assigned at Date Recorded Not on file documented as of this encounter Plan of Treatment Not on filedocumented as of this encounter Visit Diagnoses Not on filedocumented in this encounter
--- OUTSIDE RECORDS SUMMARY | 2022-07-14 15:08 | XMS_ITS | Encounter Summary ---
:1990 Author Organization [facility] Address [address] [place] [address] Care Team Providers Name Role Phone Unavailable Primary Care Provider Unavailable Encounter Details Date Type Department Care Team Description 02/11/[address] [facility] Guy Trinh D.O. [address] [place], [place] [address] (Wo rk) Social History Tobacco Use Types Packs/Day Years Used Date Smoking Tobacco: Never Assessed Sex Assigned at Date Recorded Not on file documented as of this encounter Plan of Treatment Not on filedocumented as of this encounter Visit Diagnoses Not on filedocumented in this encounter
--- OUTSIDE RECORDS SUMMARY | 2022-07-14 15:08 | XMS_ITS | Encounter Summary ---
:1990 Author Organization [facility] Address [address] [place] [address] Care Team Providers Name Role Phone Unavailable [...]
--- OUTSIDE RECORDS SUMMARY | 2022-07-14 15:08 | XMS_ITS | Encounter Summary ---
:[address] [facility] Address [address] [place] [address] Care Team Providers Name Role Phone Unavailable [...]
--- OUTSIDE RECORDS SUMMARY | 2022-07-14 15:08 | XMS_ITS | Encounter Summary ---
:1990 Author Organization [facility] Address [address] [place] [address] Care Team Providers Name Role Phone Unavailable Primary Care Provider Unavailable Encounter Details Date Type Department Care Team Description 2002 Hospital Encounter [facility]X [facility] Guy Valera, Ruslan [address] [place], [place] [address] (Wo rk) Social History Tobacco Use Types Packs/Day Years Used Date Smoking Tobacco: Never Assessed Sex Assigned at Date Recorded Not on file documented as of this encounter Plan of Treatment Not on filedocumented as of this encounter Visit Diagnoses Not on filedocumented in this encounter
--- OUTSIDE RECORDS SUMMARY | 2022-07-14 15:08 | XMS_ITS | Encounter Summary ---
:1990 Author Organization [facility] Address [address] [place] [address] Care Team Providers Name Role Phone Unavailable [...]
--- OUTSIDE RECORDS SUMMARY | 2022-07-14 15:08 | XMS_ITS | Encounter Summary ---
:1990 Author Organization [facility] Address [address] [place] [address] Care Team Providers Name Role Phone Unavailable Primary Care Provider Unavailable Encounter Details Date Type Department Care Team Description 07/24/2003 Hospital Encounter HX [facility] [place] M.D. [address] [place] [phone] (Wo rk) Social History Tobacco Use Types Packs/Day Years Used Date Smoking Tobacco: Never Assessed Sex Assigned at Date Recorded Not on file documented as of this encounter Plan of Treatment Not on filedocumented as of this encounter Visit Diagnoses Not on filedocumented in this encounter
--- OUTSIDE RECORDS SUMMARY | 2022-07-14 15:08 | XMS_ITS | Encounter Summary ---
:1990 Author Organization [facility] Address [address] [place] [address] Care Team Providers Name Role Phone Unavailable Primary Care Provider Unavailable Encounter Details Date Type Department Care Team Description 11/01/2003 Hospital Encounter HX [facility] PSY[facility] Adam Stroud Social History Tobacco Use Types Packs/Day Years Used Date Smoking Tobacco: Never Assessed Sex Assigned at Date Recorded Not on file documented as of this encounter Plan of Treatment Not on filedocumented as of this encounter Visit Diagnoses Not on filedocumented in this encounter
--- OUTSIDE RECORDS SUMMARY | 2022-07-14 15:08 | XMS_ITS | Encounter Summary ---
:1990 Author Organization [facility] Address [address] [place] [address] Care Team Providers Name Role Phone Unavailable Primary Care Provider Unavailable Encounter Details Date Type Department Care Team Description 08/19/2004 Hospital Encounter HX [facility] PS[facility] Adam Stroud Social History Tobacco Use Types Packs/Day Years Used Date Smoking Tobacco: Never Assessed Sex Assigned at Date Recorded Not on file documented as of this encounter Plan of Treatment Not on filedocumented as of this encounter Visit Diagnoses Not on filedocumented in this encounter
--- OUTSIDE RECORDS SUMMARY | 2022-07-14 15:08 | XMS_ITS | Encounter Summary ---
:1990 Author Organization [facility] Address [address] [place] [address] Care Team Providers Name Role Phone Unavailable Primary Care Provider Unavailable Encounter Details Date Type Department Care Team Description 12/27/2003 Hospital Encounter HX [facility] PS[facility] Adam Stroud Social History Tobacco Use Types Packs/Day Years Used Date Smoking Tobacco: Never Assessed Sex Assigned at Date Recorded Not on file documented as of this encounter Plan of Treatment Not on filedocumented as of this encounter Visit Diagnoses Not on filedocumented in this encounter
--- OUTSIDE RECORDS SUMMARY | 2022-07-14 15:08 | XMS_ITS | Encounter Summary ---
:1990 Author Organization [facility] Address [address] [place] [address] Care Team Providers Name Role Phone Unavailable Primary Care Provider Unavailable Encounter Details Date Type Department Care Team Description 12/24/2004 Hospital Encounter [facility] Anibal Kim M.D. [address] [place], [place] [phone] (Wo rk) Social History Tobacco Use Types Packs/Day Years Used Date Smoking Tobacco: Never Assessed Sex Assigned at Date Recorded Not on file documented as of this encounter Plan of Treatment Not on filedocumented as of this encounter Visit Diagnoses Not on filedocumented in this encounter
--- OUTSIDE RECORDS SUMMARY | 2022-07-14 15:08 | XMS_ITS | Encounter Summary ---
:1990 Author Organization [facility] Address [address] [place] [address] Care Team Providers Name Role Phone Unavailable Primary Care Provider Unavailable Encounter Details Date Type Department Care Team Description 08/21/2004 Hospital Encounter HX [facility] [place] M.D. [address] [place] [phone] (Wo rk) Social History Tobacco Use Types Packs/Day Years Used Date Smoking Tobacco: Never Assessed Sex Assigned at Date Recorded Not on file documented as of this encounter Plan of Treatment Not on filedocumented as of this encounter Visit Diagnoses Not on filedocumented in this encounter
--- OUTSIDE RECORDS SUMMARY | 2022-07-14 15:08 | XMS_ITS | Encounter Summary ---
:1990 Author Organization [facility] Address [address] [place] [address] Care Team Providers Name Role Phone Unavailable [...] 01/08/2005 10:22 AM CDT Originally Signed By Contributor_[email or web address]_SYS Exam: Right thumb series. Indication: Right thumb injury. Impression: Examination reveals no evide nce of fracture or dislocation. If pain persists, short ter m radiographic follow-up is suggested to exclude the possibility of a subtle Salter-Arce type I injury. Electronically Signed 01/08/2005 Reported By: Jaxon Caballero ? Transcribed: 01/08/2005 ([id number]) ??[facility] CC: Jean Marie A ??Val Henriquez; rCescencio Mcdowell MD Procedure Note Provider, Historical - 03/05/2017Formatt ing of this note might be different from the original. Originally Signed By Contributor_system [facility]X_RAD_SYS Exam: Right thumb series. Indication: Right thumb injury. Impression: Examination reveals no evide nce of fracture or dislocation. If pain persists, short ter m radiographic follow-up is suggested to exclude the possibility of a subtle Salter-Arce type I injury. Electronically Signed 01/08/2005 Reported By: Jaxon Caballero MD Transcribed: 01/08/2005 ([id number]) [facility] CC: Jean Marie Henriquez; Crescencio medina MD Historical Provider IMG DIAGNOSTIC IMAGING PROCE DURES documented in this encounter Visit Diagnoses Not on filedocumented in this encounter
--- OUTSIDE RECORDS SUMMARY | 2022-07-14 15:08 | XMS_ITS | Encounter Summary ---
:1990 Author Organization [facility] Address [address] [place] [address] Care Team Providers Name Role Phone Unavailable Primary Care Provider Unavailable Encounter Details Date Type Department Care Team Description 12/15/2003 Hospital Encounter HX [facility] PSY[facility] Aung Trinh, D.O. [address] [place], [place] [address] (Wo rk) Social History Tobacco Use Types Packs/Day Years Used Date Smoking Tobacco: Never Assessed Sex Assigned at Date Recorded Not on file documented as of this encounter Plan of Treatment Not on filedocumented as of this encounter Visit Diagnoses Not on filedocumented in this encounter
--- OUTSIDE RECORDS SUMMARY | 2022-07-14 15:08 | XMS_ITS | Encounter Summary ---
:1990 Author Organization [facility] Address [address] [place] [address] Care Team Providers Name Role Phone Unavailable Primary Care Provider Unavailable Encounter Details Date Type Department Care Team Description 05/10/2003 Hospital Encounter [facility] [place] M.D. [address] [place] [phone] (Wo rk) Social History Tobacco Use Types Packs/Day Years Used Date Smoking Tobacco: Never Assessed Sex Assigned at Date Recorded Not on file documented as of this encounter Plan of Treatment Not on filedocumented as of this encounter Visit Diagnoses Not on filedocumented in this encounter
--- OUTSIDE RECORDS SUMMARY | 2022-07-14 15:08 | XMS_ITS | Encounter Summary ---
:1990 Author Organization [facility] Address [address] [place] [address] Care Team Providers Name Role Phone Unavailable Primary Care Provider Unavailable Encounter Details Date Type Department Care Team Description 06/22/2003 Hospital Encounter HX [facility] [place] M.D. [address] [place] [phone] (Wo rk) Social History Tobacco Use Types Packs/Day Years Used Date Smoking Tobacco: Never Assessed Sex Assigned at Date Recorded Not on file documented as of this encounter Plan of Treatment Not on filedocumented as of this encounter Visit Diagnoses Not on filedocumented in this encounter
--- OUTSIDE RECORDS SUMMARY | 2022-07-14 15:08 | XMS_ITS | Encounter Summary ---
:1990 Author Organization [facility] Address [address] [place] [address] Care Team Providers Name Role Phone Unavailable Primary Care Provider Unavailable Encounter Details Date Type Department Care Team Description 12/03/2004 Hospital Encounter [facility] Guy Valera, Ruslan [address] [place], [place] [address] (Wo rk) Social History Tobacco Use Types Packs/Day Years Used Date Smoking Tobacco: Never Assessed Sex Assigned at Date Recorded Not on file documented as of this encounter Plan of Treatment Not on filedocumented as of this encounter Visit Diagnoses Not on filedocumented in this encounter
--- OUTSIDE RECORDS SUMMARY | 2022-07-14 15:08 | XMS_ITS | Encounter Summary ---
:[address] [facility] Address [address] [place] [address] Care Team Providers Name Role Phone Unavailable Primary Care Provider Unavailable Encounter Details Date Type Department Care Team Description 10/31/2003 Hospital Encounter [facility] [place] M.D. [address] [place] [phone] (Wo rk) Social History Tobacco Use Types Packs/Day Years Used Date Smoking Tobacco: Never Assessed Sex Assigned at Date Recorded Not on file documented as of this encounter Plan of Treatment Not on filedocumented as of this encounter Visit Diagnoses Not on filedocumented in this encounter
--- OUTSIDE RECORDS SUMMARY | 2022-07-14 15:08 | XMS_ITS | Encounter Summary ---
:1990 Author Organization [facility] Address [address] [place] [address] Care Team Providers Name Role Phone Unavailable Primary Care Provider Unavailable Encounter Details Date Type Department Care Team Description 05/15/2004 Hospital Encounter HX [facility] Adam Stroud Social History Tobacco Use Types Packs/Day Years Used Date Smoking Tobacco: Never Assessed Sex Assigned at Date Recorded Not on file documented as of this encounter Plan of Treatment Not on filedocumented as of this encounter Visit Diagnoses Not on filedocumented in this encounter
--- OUTSIDE RECORDS SUMMARY | 2022-07-14 15:08 | XMS_ITS | Encounter Summary ---
:1990 Author Organization [facility] Address [address] [place] [address] Care Team Providers Name Role Phone Unavailable Primary Care Provider Unavailable Encounter Details Date Type Department Care Team Description 12/30/2004 Hospital Encounter [facility] Hill Bernal M.D. [address] [place] [phone] (Wo rk) Social History Tobacco Use Types Packs/Day Years Used Date Smoking Tobacco: Never Assessed Sex Assigned at Date Recorded Not on file documented as of this encounter Plan of Treatment Not on filedocumented as of this encounter Visit Diagnoses Not on filedocumented in this encounter
--- OUTSIDE RECORDS SUMMARY | 2022-07-14 15:08 | XMS_ITS | Encounter Summary ---
:1990 Author Organization [facility] Address [address] [place] [address] Care Team Providers Name Role Phone Unavailable Primary Care Provider Unavailable Encounter Details Date Type Department Care Team Description 01/28/2005 Hospital Encounter [facility] Guy Valera, Ruslan [address] [place], [place] [address] (Wo rk) Social History Tobacco Use Types Packs/Day Years Used Date Smoking Tobacco: Never Assessed Sex Assigned at Date Recorded Not on file documented as of this encounter Plan of Treatment Not on filedocumented as of this encounter Visit Diagnoses Not on filedocumented in this encounter
--- OUTSIDE RECORDS SUMMARY | 2022-07-14 15:08 | XMS_ITS | Encounter Summary ---
:1990 Author Organization [facility] Address [address] [place] [address] Care Team Providers Name Role Phone Unavailable Primary Care Provider Unavailable Encounter Details Date Type Department Care Team Description 05/02/2003 Hospital Encounter HX [facility] Adam Stroud Social History Tobacco Use Types Packs/Day Years Used Date Smoking Tobacco: Never Assessed Sex Assigned at Date Recorded Not on file documented as of this encounter Plan of Treatment Not on filedocumented as of this encounter Visit Diagnoses Not on filedocumented in this encounter
--- OUTSIDE RECORDS SUMMARY | 2022-07-14 15:08 | XMS_ITS | Encounter Summary ---
:1990 Author Organization [facility] Address [address] [place] [address] Care Team Providers Name Role Phone Unavailable Primary Care Provider Unavailable Encounter Details Date Type Department Care Team Description 06/21/2002 Hospital Encounter [facility]X [facility] Karlo Dawkins M.D. Social History Tobacco Use Types Packs/Day Years Used Date Smoking Tobacco: Never Assessed Sex Assigned at Date Recorded Not on file documented as of this encounter Plan of Treatment Not on filedocumented as of this encounter Visit Diagnoses Not on filedocumented in this encounter
--- OUTSIDE RECORDS SUMMARY | 2022-07-14 15:08 | XMS_ITS | Encounter Summary ---
:1990 Author Organization [facility] Address [address] [place] [address] Care Team Providers Name Role Phone Unavailable Primary Care Provider Unavailable Encounter Details Date Type Department Care Team Description 01/30/2005 Hospital Encounter [facility] Abigail Gonsalez M.D. [address] [place], [place] [address] (Wo rk) Social History Tobacco Use Types Packs/Day Years Used Date Smoking Tobacco: Never Assessed Sex Assigned at Date Recorded Not on file documented as of this encounter Plan of Treatment Not on filedocumented as of this encounter Visit Diagnoses Not on filedocumented in this encounter
--- OUTSIDE RECORDS SUMMARY | 2022-07-14 15:08 | XMS_ITS | Encounter Summary ---
:1990 Author Organization [facility] Address [address] [place] [address] Care Team Providers Name Role Phone Unavailable Primary Care Provider Unavailable Encounter Details Date Type Department Care Team Description 10/03/2003 Hospital Encounter [facility] [place] Green M.D. [address] [place] [phone] (Wo rk) Social History Tobacco Use Types Packs/Day Years Used Date Smoking Tobacco: Never Assessed Sex Assigned at Date Recorded Not on file documented as of this encounter Plan of Treatment Not on filedocumented as of this encounter Visit Diagnoses Not on filedocumented in this encounter
--- OUTSIDE RECORDS SUMMARY | 2022-07-14 15:08 | XMS_ITS | Encounter Summary ---
:1990 Author Organization [facility] Address [address] [place] [address] Care Team Providers Name Role Phone Unavailable Primary Care Provider Unavailable Encounter Details Date Type Department Care Team Description 06/28/2003 Hospital Encounter [facility]X [facility] Adam Stroud Social History Tobacco Use Types Packs/Day Years Used Date Smoking Tobacco: Never Assessed Sex Assigned at Date Recorded Not on file documented as of this encounter Plan of Treatment Not on filedocumented as of this encounter Visit Diagnoses Not on filedocumented in this encounter
--- OUTSIDE RECORDS SUMMARY | 2022-07-14 15:08 | XMS_ITS | Encounter Summary ---
:1990 Author Organization [facility] Address [address] [place] [address] Care Team Providers Name Role Phone Unavailable Primary Care Provider Unavailable Encounter Details Date Type Department Care Team Description 07/03/2004 Hospital Encounter [facility]X [facility] Hill Green M.D. [address] [place] [phone] (Wo rk) Social History Tobacco Use Types Packs/Day Years Used Date Smoking Tobacco: Never Assessed Sex Assigned at Date Recorded Not on file documented as of this encounter Plan of Treatment Not on filedocumented as of this encounter Visit Diagnoses Not on filedocumented in this encounter
--- OUTSIDE RECORDS SUMMARY | 2022-07-14 15:08 | XMS_ITS | Encounter Summary ---
:1990 Author Organization [facility] Address [address] [place] [address] Care Team Providers Name Role Phone Unavailable Primary Care Provider Unavailable Encounter Details Date Type Department Care Team Description 12/09/2004 Hospital Encounter [facility]X [facility] Adam Stroud Social History Tobacco Use Types Packs/Day Years Used Date Smoking Tobacco: Never Assessed Sex Assigned at Date Recorded Not on file documented as of this encounter Plan of Treatment Not on filedocumented as of this encounter Visit Diagnoses Not on filedocumented in this encounter
--- OUTSIDE RECORDS SUMMARY | 2022-07-14 15:08 | XMS_ITS | Encounter Summary ---
:1990 Author Organization [facility] Address [address] [place] [address] Care Team Providers Name Role Phone Unavailable Primary Care Provider Unavailable Encounter Details Date Type Department Care Team Description 05/22/2004 Hospital Encounter [facility] Hill Green M.D. [address] [place] [phone] (Wo rk) Social History Tobacco Use Types Packs/Day Years Used Date Smoking Tobacco: Never Assessed Sex Assigned at Date Recorded Not on file documented as of this encounter Plan of Treatment Not on filedocumented as of this encounter Visit Diagnoses Not on filedocumented in this encounter
--- OUTSIDE RECORDS SUMMARY | 2022-07-14 15:08 | XMS_ITS | Encounter Summary ---
:1990 Author Organization [facility] Address [address] [place] [address] Care Team Providers Name Role Phone Unavailable Primary Care Provider Unavailable Encounter Details Date Type Department Care Team Description 01/30/2005 Hospital Encounter [facility] Yvon Castillo M.D. [address] [place], [place] [address] (Wo rk) Social History Tobacco Use Types Packs/Day Years Used Date Smoking Tobacco: Never Assessed Sex Assigned at Date Recorded Not on file documented as of this encounter Plan of Treatment Not on filedocumented as of this encounter Visit Diagnoses Not on filedocumented in this encounter
--- OUTSIDE RECORDS SUMMARY | 2022-07-14 15:08 | XMS_ITS | Encounter Summary ---
:1990 Author Organization [facility] Address [address] [place] [address] Care Team Providers Name Role Phone Unavailable Primary Care Provider Unavailable Encounter Details Date Type Department Care Team Description 09/05/2003 Hospital Encounter [facility] Guy Valera, Ruslan [address] [place], [place] [address] (Wo rk) Social History Tobacco Use Types Packs/Day Years Used Date Smoking Tobacco: Never Assessed Sex Assigned at Date Recorded Not on file documented as of this encounter Plan of Treatment Not on filedocumented as of this encounter Visit Diagnoses Not on filedocumented in this encounter
--- OUTSIDE RECORDS SUMMARY | 2022-07-14 15:08 | XMS_ITS | Encounter Summary ---
:1990 Author Organization [facility] Address [address] [place] [address] Care Team Providers Name Role Phone Unavailable Primary Care Provider Unavailable Encounter Details Date Type Department Care Team Description 06/01/2003 Hospital Encounter [facility] [place] Green M.D. [address] [place] [phone] (Wo rk) Social History Tobacco Use Types Packs/Day Years Used Date Smoking Tobacco: Never Assessed Sex Assigned at Date Recorded Not on file documented as of this encounter Plan of Treatment Not on filedocumented as of this encounter Visit Diagnoses Not on filedocumented in this encounter
--- OUTSIDE RECORDS SUMMARY | 2022-07-14 15:08 | XMS_ITS | Encounter Summary ---
:1990 Author Organization [facility] Address [address] [place] [address] Care Team Providers Name Role Phone Unavailable Primary Care Provider Unavailable Encounter Details Date Type Department Care Team Description 12/15/2004 Hospital Encounter [facility] Jin Gregory M.D. [address] [place], [place] [address] (Wo rk) Social History Tobacco Use Types Packs/Day Years Used Date Smoking Tobacco: Never Assessed Sex Assigned at Date Recorded Not on file documented as of this encounter Plan of Treatment Not on filedocumented as of this encounter Visit Diagnoses Not on filedocumented in this encounter
--- OUTSIDE RECORDS SUMMARY | 2022-07-14 15:08 | XMS_ITS | Encounter Summary ---
:1990 Author Organization [facility] Address [address] [place] [address] Care Team Providers Name Role Phone Unavailable Primary Care Provider Unavailable Encounter Details Date Type Department Care Team Description 08/17/2003 Hospital Encounter [facility] Hill Green M.D. [address] [place] [phone] (Wo rk) Social History Tobacco Use Types Packs/Day Years Used Date Smoking Tobacco: Never Assessed Sex Assigned at Date Recorded Not on file documented as of this encounter Plan of Treatment Not on filedocumented as of this encounter Visit Diagnoses Not on filedocumented in this encounter
--- OUTSIDE RECORDS SUMMARY | 2022-07-14 15:08 | XMS_ITS | Encounter Summary ---
:1990 Author Organization [facility] Address [address] [place] [address] Care Team Providers Name Role Phone Unavailable Primary Care Provider Unavailable Encounter Details Date Type Department Care Team Description 12/24/2004 Hospital Encounter [facility] Anibal Kim M.D. [address] [place], [place] [phone] (Wo rk) Social History Tobacco Use Types Packs/Day Years Used Date Smoking Tobacco: Never Assessed Sex Assigned at Date Recorded Not on file documented as of this encounter Plan of Treatment Not on filedocumented as of this encounter Visit Diagnoses Not on filedocumented in this encounter
--- OUTSIDE RECORDS SUMMARY | 2022-07-14 15:08 | XMS_ITS | Encounter Summary ---
:1990 Author Organization [facility] Address [address] [place] [address] Care Team Providers Name Role Phone Unavailable Primary Care Provider Unavailable Encounter Details Date Type Department Care Team Description 01/27/2005 Hospital Encounter [facility] Hill Bernal M.D. [address] [place] [phone] (Wo rk) Social History Tobacco Use Types Packs/Day Years Used Date Smoking Tobacco: Never Assessed Sex Assigned at Date Recorded Not on file documented as of this encounter Plan of Treatment Not on filedocumented as of this encounter Visit Diagnoses Not on filedocumented in this encounter
--- OUTSIDE RECORDS SUMMARY | 2022-07-14 15:08 | XMS_ITS | Encounter Summary ---
:1990 Author Organization [facility] Address [address] [place] [address] Care Team Providers Name Role Phone Unavailable Primary Care Provider Unavailable Encounter Details Date Type Department Care Team Description 08/30/2003 Hospital Encounter [facility]X [facility] Adam Stroud Social History Tobacco Use Types Packs/Day Years Used Date Smoking Tobacco: Never Assessed Sex Assigned at Date Recorded Not on file documented as of this encounter Plan of Treatment Not on filedocumented as of this encounter Visit Diagnoses Not on filedocumented in this encounter
--- OUTSIDE RECORDS SUMMARY | 2022-07-14 15:08 | XMS_ITS | Encounter Summary ---
:1990 Author Organization [facility] Address [address] [place] [address] Care Team Providers Name Role Phone Unavailable Primary Care Provider Unavailable Encounter Details Date Type Department Care Team Description 03/01/2003 Hospital Encounter [facility] Guy Valera, Ruslan [address] [place], [place] [address] (Wo rk) Social History Tobacco Use Types Packs/Day Years Used Date Smoking Tobacco: Never Assessed Sex Assigned at Date Recorded Not on file documented as of this encounter Plan of Treatment Not on filedocumented as of this encounter Visit Diagnoses Not on filedocumented in this encounter
--- OUTSIDE RECORDS SUMMARY | 2022-07-14 15:08 | XMS_ITS | Encounter Summary ---
:1990 Author Organization [facility] Address [address] [place] [address] Care Team Providers Name Role Phone Unavailable Primary Care Provider Unavailable Encounter Details Date Type Department Care Team Description 08/27/2004 Hospital Encounter [facility]X [facility] Adam Stroud Social History Tobacco Use Types Packs/Day Years Used Date Smoking Tobacco: Never Assessed Sex Assigned at Date Recorded Not on file documented as of this encounter Plan of Treatment Not on filedocumented as of this encounter Visit Diagnoses Not on filedocumented in this encounter
--- OUTSIDE RECORDS SUMMARY | 2022-07-14 15:10 | XMS_ITS | Clinical Summary ---
:1990 Author Organization [facility] [place] [address] Care Team Providers Name Role Phone Nancy Peacock Primary Care Provider Charissa Watkins PsyD, ESTELLA Unavailable [phone] Allergies Active Allergy Reactions Severity Noted [...] 10/15/2018 Overview: 07/29/18 signed .Adina Marinelli DNP, RATE CLERK, MARKETING PROPOSAL COORDINATOR/psychiatry Controlled substance agreement signed 08/06/2018 Overview: Felice. [...] 07/10/2022 Telemedicine Roberto Carlos Toro, PhD, [facility] 07/08/2022 Telephone Nancy Peacock, Appoint ment (consult to PA SENIOR ENVIRONMENTAL PRACTICE LEADER) 07/03/2022 Telemedicine Roberto Carlos Toro, PhD, [facility] 07/03/2022 Travel 06/20/2022 Office Visit Nancy Peacock, Menstru al Problem PA (Patient starte d bleeding in Oct and has been bleeding on and off since oct, started ag ain on May 01) 06/20/2022 Travel 06/19/2022 Telemedicine [facility], [facility] 06/13/2022 Medical Messaging Nancy Peacock, Bi rth Control PA 06/05/2022 Telemedicine Roberto Carlos Toro, PhD, [facility] 06/05/2022 Travel 05/29/2022 Telemedicine Roberto Carlos Toro, PhD, [facility] 05/29/2022 Travel 05/22/2022 Telemedicine Roberto Carlos Toro, PhD, [facility] 05/22/2022 Travel 05/19/2022 Emergency Marquez Riley MD Dysmenorrh ea (Primary Dx); Vaginal bleedin g; Irregular perio ds 05/19/2022 Travel 05/19/2022 Nurse Triage Nancy Peacock, Vaginal Bleeding PA 05/09/2022 Nurse Triage Nancy Peacock, Contrac eption (Questions PA ) 05/01/2022 Telemedicine Roberto Carlos Toro, PhD, [facility] 05/01/2022 Travel 04/24/2022 Telemedicine Roberto Carlos Toro, PhD, [facility] 04/24/2022 Travel 04/17/2022 Phone Office Visit Roberto Carlos Toro, PhD, T [facility] from Last 3 Months Immunizations Name Administration [...] Influenza, IIV3 (Age >=3 years) 07/09/2009, 08/04/2008, 05/2003 MMR 05/28/1998, 12/06/1993 Oral Polio Vaccine 06/16/1997, [...] Description 07/17/2022 Telemedicine Roberto Carlos Toro, PhD, [address] [address] (Rina corrigan) 07/24/2022 Telemedicine Roberto Carlos Toro, PhD, [address] [address] (Rina corrigan) 07/31/2022 Telemedicine Roberto Carlos Toro, PhD, [address] [address] (Rina corrigan) 08/07/2022 Telemedicine Roberto Carlos Toro, PhD, [address] 5 [phone] (Wo rk) 08/14/2022 Telemedicine Roberto Carlos Toro, PhD, [address] [address] (Wo rk) 08/20/2022 Telemedicine Roberto Carlos Toro, PhD, [address] [address] (Wo rk) 08/28/2022 Telemedicine Roberto Carlos Toro, PhD, [address] [address] (Wo rk) 09/04/2022 Telemedicine Roberto Carlos Toro, PhD, [address] [address] (Wo rk) 09/11/2022 Telemedicine Roberto Carlos Toro, PhD, [address] [address] (Wo rk) 09/18/2022 Telemedicine Roberto Carlos Toro, PhD, [address] [address] (Wo rk) 09/25/2022 Telemedicine Roberto Carlos Toro, PhD, [address] [address] (Wo rk) Health Maintenance Due Date Last [...] Completed 10/14/2012 Medical Devices Implanted Type Area Marble Mechanic Helper Device Shelf Model / Identifier Expiration Date Ser ial / Lot Ancr Sut 1.4mm Nanotack W/ Flex Repair Table Operator - [id number] Left : Hip Wagner 01/20/2019 [id number] / Implanted: Qty: 1 on 02/26/2018 by Rakan Queen MD at [facility] Orthopaedics / [id number] Procedures Procedure Name Priority Date/Time Associated Comments [...] report s are released immediately into your [facility] medical record. ??You may view this report [...] Alexis MD @ 12:09:39 PM (Electronically Signed) Procedure Note Gonzalo Alexis MD - 05/19/2022Format ting of this note might be different from the original. For Patients: As a result of the Cures Act, medical imaging exams and procedure reports are released immediately into your electronic medical record. You may view this report before your referring provider. If you have questions, please contact [facility] health care provider. Indication: Vaginal bleeding Technique: [...] CBC WITH AUTO DIFFERENTIAL (05/19/2022 10:39 AM CDT) [facility] Method Time Signature WHITE BLOOD 14.5 (H) 4.5 - 11.0 05/19/2022 [place] COUNT thou/cu mm 11:[address] [facility] RED BLOOD COUNT 4.77 4.00 - 05/19/2022 [place] 5.20 11:[address] [facility] mil/cu mm LABORATORY HEMOGLOBIN 13.1 12.0 - 05/19/2022 [place] 16.0 g/dL 11:[address] [facility] HEMATOCRIT 41.8 33.0 - 05/19/2022 [place] 51.0 % 11:[address] [facility] MCV 88 80 - 100 05/19/2022 [place] fL 11:[address] [facility] MCH 27.5 26.0 - 05/19/2022 [place] 34.0 pg 11:[address] [facility] MCHC 31.3 (L) 32.0 - 05/19/2022 [place] 36.0 g/dL 11:[address] [facility] RDW 14.4 11.5 - 05/19/2022 [place] 15.5 % 11:[address] [facility] PLATELET COUNT 352 140 - 440 05/19/2022 [place] thou/cu mm 11:[address] [facility] MPV 9.6 6.5 - 11.0 05/19/2022 [place] fL 11:[address] [facility] Specimen Anatomical Collection Method Collection Time Receive d Time (Source) Location / / Volume Laterality Blood BLOOD SPECIMEN / [place] / 05/19/2022 10:39 022 Unknown Unknown AM CDT 10:44 AM CDT Marquez Riley MD HEMATOLOGY Performing Organization Address City/[facility]/ZIP Code Phon e Number [facility] [address] [place] [address] RED CELL MORPHOLOGY (05/19/2022 10:39 AM CDT) [facility] Method Time Signature RBC COMMENT RBC [...] Marquez Riley MD HEMATOLOGY Performing Organization Address City/[facility]/ZIP Code Phon e Number [facility] [address] [place] [address] PLATELET ESTIMATE (05/19/2022 10:39 AM CDT) [facility] Method Time Signature PLATELET Adequate Adequate, No 05/19/2022 [facility] EST[facility] estimate 11:22 AM [facility] Specimen Anatomical Collection Method Collection Time Receive d Time (Source) Location / / Volume Laterality Blood BLOOD SPECIMEN / [place] / 05/19/2022 10:39 022 Unknown Unknown AM CDT 10:44 AM CDT Marquez Riley MD HEMATOLOGY Performing Organization Address City/[facility]/ZIP Code Phon e Number [facility] [address] [place] [address] (ABNORMAL) MANUAL DIFFERENTIAL (05/19/2022 10:39 AM CDT) [facility] Method Time Signature % NEUTROPHILS 70.0 % 05/19/2022 [place] 11:22 AM CDT [facility] % LYMPHOCYTES 26.0 % 05/19/2022 [place] 11:22 AM CDT [facility] % MONOCYTES 2.0 % 05/19/2022 [place] 11:22 AM CDT [facility] % EOSINOPHILS 2.0 % 05/19/2022 [place] 11:22 AM CDT [facility] % BASOPHILS 0.0 % 05/19/2022 [place] 11:22 AM CDT [facility] NEUTROPHILS 10.1 (H) 1.7 - 7.0 05/19/2022 [place] ABSOLUTE thou/cu 11:[address] [facility] mm LABORATORY LYMPHOCYTES 3.8 (H) 0.9 - 2.9 05/19/2022 [place] ABSOLUTE thou/cu 11:[address] [facility] mm LABORATORY MONOCYTES 0.3 <0.9 05/19/2022 [place] ABSOLUTE thou/cu 11:[address] [facility] mm LABORATORY EOSINOPHILS 0.3 <0.5 05/19/2022 [place] ABSOLUTE thou/cu 11:[address] [facility] mm LABORATORY BASOPHILS 0.0 <0.3 05/19/2022 [place] ABSOLUTE thou/cu 11:[address] [facility] mm LABORATORY Specimen Anatomical Collection Method Collection Time Receive d Time (Source) Location / / Volume Laterality Blood BLOOD SPECIMEN / [place] / 05/19/2022 10:39 022 Unknown Unknown AM CDT 10:44 AM CDT Marquez Riley MD HEMATOLOGY Performing Organization Address City/[facility]/ZIP Code Phon e Number [facility] [address] [place] [address] ,SERUM (05/19/2022 10:39 AM CDT) Analysis Performed At Patho logist Time Signature ,SERU Negative Negative 05/19/2022 [facility] M 10:[address] [facility] Specimen Anatomical Collection Method Collection Time Receive d Time (Source) Location / / Volume Laterality Blood BLOOD SPECIMEN / [place] / 05/19/2022 10:39 022 Unknown Unknown AM CDT 10:44 AM CDT Marquez Riley MD CHEMISTRY Performing Organization Address City/[facility]/ZIP Code Phon e Number [facility] [address] [place] [address] TYPE AND SCREEN ONLY (05/19/2022 10:39 AM CDT) Patholo gist Method Time Signature ABORH A Rh 05/19/2022 [place] Positive 11:[address] [facility] BLOOD BANK ANTIBODY Negative Negative 05/19/2022 [place] SCREEN 11:[address] [facility] BLOOD BANK SPECIMEN 05/22/22 05/19/2022 [place] EXPIRATION 23:59 11:18 AM [facility] MEDICAL DATE/TIME CENTER LABORATORY BLOOD BANK Specimen Anatomical Collection Method Collection Time Receive d Time (Source) Location / / Volume Laterality Blood BLOOD SPECIMEN / [place] / 05/19/2022 10:39 022 Unknown Unknown AM CDT 10:44 AM CDT Marquez Riley MD BLOOD BANK Performing Organization Address City/State/ZIP Code Phon e Number [facility] [address] [place] [address] BLOOD BANK BASIC METABOLIC PANEL (05/19/2022 10:39 AM CDT) athologist Signature SODIUM 139 135 - 145 05/19/2022 [place] mmol/L 11:[address] [facility] POTASSIUM 4.6 3.5 - 5.0 05/19/2022 [place] mmol/L 11:[address] [facility] CHLORIDE 106 98 - 110 05/19/2022 [place] mmol/L 11:[address] [facility] CO2,TOTAL 26 21 - 31 05/19/2022 [place] mmol/L 11:[address] [facility] ANION GAP 7 5 - 18 05/19/2022 [place] 11:[address] [facility] GLUCOSE 94 65 - 100 05/19/2022 [place] mg/dL 11:[address] [facility] CALCIUM 9.1 8.5 - 10.5 05/19/2022 [place] mg/dL 11:[address] [facility] BUN 11 8 - 25 05/19/2022 [place] mg/dL 11:[address] [facility] CREATININE 0.68 0.57 - 05/19/2022 [place] 1.11 mg/dL 11:[address] [facility] BUN/CREAT RATIO 16 10 - 20 05/19/2022 [facility] 11:[address] [facility] eGFR >90 >90 05/19/2022 [place] mL/min/1.7 11:[address] [facility] 3m2 LABORATORY Comment: As of 2021, eGFR [...] Organization Address City/State/ZIP Code Phon e Number [facility] [address] [facility] [place] [address] from Last 3 Months Insurance Payer Benefit Plan / Subscriber ID Effective Dates Phone Addre ss Type Group WC WORKERS COMP WC TRAVELERS [id number] 2020-Presen [address] [place] [address] [facility] [id number] 2022-Present [address] [facility] [place] [address] (Home) [place] [id number] Yolanda Majano Yvon Workers Comp Self [id number] [id number] [employer] Other 09/28/2000 [address] [place] [address] Advance Directives Latest Code Status on File Code Status Date Activated Date Inactivated Comments Full Code 02/26/2018 9:21 AM 02/27/2018 2:35 AM Care Teams Chipper Feeder Relationship Specialty Start Date End Date Nancy Peacock PA PCP - General Physician Feeder Switchboard Operator 04/09/15 100 [facility] [place] [address] Charissa Watkins PsyD, LP Psychology 11/02/17 100 [facility] [place] [address]
[2022-07-14 21:27] LABS: Chlamydia DNA Amplified* NOT DETECTED (No Detected); GC DNA Amplified* NOT DETECTED (No Detected)
== END 2022-07-14 14:42 | disposition home or self-care (01) ==
PROVIDERS: PCP Physician Assistant; Visit Provider Obstetrics & Gynecology
DX: N92.0 Excessive and frequent menstruation with regular cycle (principal); R10.2 Pelvic and perineal pain; Z12.4 Encounter for screening for malignant neoplasm of cervix
CPT/HCPCS: 87086; 87491; 87591

== ENCOUNTER 2022-09-04 07:40 | Day surgery (SDC) | payer OTHER, SELFPAY ==
[2022-09-04] VITALS (11 sets, daily range): BP systolic 89–133; BP diastolic 51–89; PULSE 85–99; RESP 12–16; TEMP 36.1–36.4; O2SAT 91–98; BMI 49.1
[2022-09-04 08:42] LABS: Ur HCG Qualitative* Negative (Negative)
[2022-09-04] MEDS: LACTATED RINGERS 1000 ML 1,000 ML 100 ML IV ×2 (08:47→11:07)
[2022-09-04] MEDS: SODIUM CHLORIDE 0.9 % (FLUSH) 10 ML SYRINGE IVF (08:47)
[2022-09-04] MEDS: SCOPOLAMINE 1 MG/3 DAY PATCH 1 PATCH TRANSDERMA (08:48)
--- NOTE | 2022-09-04 08:51 | SUR.PREOP ---
home antigen test negative from 09/03/22
[2022-09-04] MEDS: BUPIVACAINE 0.25% 30 ML INJECTION (10:16)
[2022-09-04] MEDS: fentaNYL 100 MCG/2 ML inj 50 MCG IVP ×2 (11:10→11:12)
--- NOTE | 2022-09-04 11:13 | W.ANESCHARGE ---
Anesthesia Charges Start Date/Time Anesthesia Start Date: 09/04/22 Anesthesia Start Time: 09:27 Stop Date/Time Anesthesia Stop Date: 09/04/22 Anesthesia Stop Time: 11:18 Summary Emergency: No
--- NOTE | 2022-09-04 11:22 | W.ANESCHARGE ---
Anesthesia Charges Start Date/Time Anesthesia Start Date: 09/04/22 Anesthesia Start Time: 09:27 Stop Date/Time Anesthesia Stop Date: 09/04/22 Anesthesia Stop Time: 11:18 Summary Emergency: No
[2022-09-04] MEDS: HYDROmorphone 0.5 mg/0.5 ml inj IVP (11:27)
--- NOTE | 2022-09-04 11:34 | P.GYNPRC_ITS ---
Procedure Note Date Seen: 09/04/22 Procedure Details: PREOPERATIVE DIAGNOSIS: Chronic pelvic pain POSTOPERATIVE DIAGNOSIS: Stage I endometriosis PROCEDURE: Laparoscopy with fulguration and excision of endometriosis, peritoneal biopsies SURGEON: Yolanda Montgomery MD FACILITY MAINTENANCE WORKER: Trixie Hernandez MD ANESTHESIA: General IV FLUIDS: 1000 mL crystalloid URINE OUTPUT: 100 mL EBL: 5 mL FINDINGS: 1. Upon pelvic exam under anesthesia, the cervix and vagina were normal in appearance. IUD string was noted at the external os. Uterus was mobile and anteverted, of normal size and texture. 2. Upon laparoscopy, survey of the upper abdomen revealed a normal appearance to the inferior edge of the liver and stomach. Bowels were grossly normal appearance. Survey of the pelvis revealed normal appearance to the uterus. Bilateral tubes exhibited tiny vesicular lesions covering much of their surfaces bilaterally, ranging in size from less than 1 mm to 2 mm. Bilateral ovaries were normal in appearance. Bilateral ovarian fossa were without lesions. The cul-de-sac exhibited several deep blue-black macules suggestive of endometriosis, each 1 mm in greatest dimension or less. The bladder reflection was normal in appearance. COMPLICATIONS: None PROCEDURE IN DETAIL: Patient was taken to the operating room with IV running. She was positioned in dorsal lithotomy position with her legs fully supported in Yellofin stirrups. General anesthesia was administered. She was prepped and draped in the usual sterile fashion. Bimanual exam was performed for the above- noted findings. Speculum was inserted. A single-toothed uterine manipulator was inserted through the cervix into the lower uterine segment, and affixed to the anterior cervical lip. Speculum was removed. Osman catheter was placed. Patient's legs were placed in neutral position. Attention was turned to patient's abdomen. The infraumbilical area was infiltrated with small amount of Marcaine. An infraumbilical incision was made with a scalpel and carried through to the underlying layer of fascia with a hemostat. The 5 mm Fios Kii trocar was assembled with laparoscope within, and insufflator attached. While tenting up the abdomen manually, the trocar was passed through the anterior abdominal wall into the peritoneal cavity. Trocar was removed. Pneumoperitoneum was achieved. Survey of abdomen and pelvis revealed the above-noted findings. Three additional port sites were created. The first was in the patient's left lower quadrant, just superior medial to the left ASIS. The second was a hand's breath superior to and slightly medial to the first. The third was in the patient's right lower quadrant, just superior medial to the right ASIS. Each was infiltrated with small amount of Marcaine prior to incision. A 5 mm incision was made at each site, making sure the large vessels were out of harm's way. A 5 mm Fios Kii port was inserted at each site, under direct visualization and without complication. The balloon on each of the four ports was inflated, holding each in place. Attention was 1st turned to the cul-de-sac. Two food service sales representatives powder burn lesions in the cul-de-sac were grasped with laparoscopic [place] forceps and excised sharply with scissors. Surrounding lesions were smaller and not as acc essible to excision due to their location. These were treated with monopolar cautery. Hemostasis was noted at biopsy sites. Attention was then turned to the above described saccular lesions studding the surface of bilateral fallopian tubes. One such superficial lesion, approximately 1.5 mm in greatest dimension at the origin of the right fallopian was grasped with [place] forceps and excised sharply. There was no bleeding at this site. All instruments were removed from the ports. The balloons of each port were deflated. Pneumoperitoneum was released, and the ports were removed. Bovie was used for oozing vessels beneath some of the laparoscopic skin incisions. The skin was closed with a subcuticular stitch of 4-0 Monocryl or 4-0 Vicryl at each site. Surgical glue was applied above this. The uterine manipulator was removed. The IUD string was still palpable in its appropriate location at the external os. The Osman catheter was removed. Patient tolerated procedure well and was taken to recovery area in stable condition.
[2022-09-04] MEDS: METOCLOPRAMIDE HCL 5 MG/ML INJ 10 MG IVP (11:37)
[2022-09-04] MEDS: ACETAMINOPHEN 500 MG TABLET 1000 MG PO (12:38)
== END 2022-09-04 12:40 | disposition home or self-care (01) ==
PROVIDERS: PCP Physician Assistant; Visit Provider Obstetrics & Gynecology
PROC: (CPT 49320; principal; 2022-09-04 09:00)
DX: N80.312 Deep endometriosis of the anterior cul-de-sac (principal); N80.322 Deep endometriosis of the posterior cul-de-sac; G89.29 Other chronic pain; R10.2 Pelvic and perineal pain; N83.8 Other noninflammatory disorders of ovary, fallopian tube and broad ligament
CPT/HCPCS: 58662; 49321; 00840; 36415; 81025; 86850; 86900; 86901; 88305; A9270; J0330; J1100; J1170; J2250; J2405; J2704; J2710; J2765; J3010; J3490; J7120

== ENCOUNTER 2023-03-12 16:33 | Outpatient (CLI) | payer OTHER, SELFPAY ==
--- NOTE | 2023-03-12 17:00 | CRLHL7_ITS ---
For Patients: As a result of the Century Cures Act, medical imaging exams and procedure reports are released immediately into your electronic medical record. You may view this report before your referring provider. If you have questions, please contact your health care provider. INDICATION: Pain, history of endometriosis, IUD TECHNIQUE: Ultrasound pelvis transabdominal and transvaginal for better assessment or to better visualize the endometrium. Real time sonographic images with Spectral and color Doppler imaging of the ovaries were obtained. COMPARISON: None FINDINGS: Uterus: 8.7 centimeter x 3.4 centimeter x 4.3 centimeter. Heterogeneous myometrium. No masses. Endometrium: Transvaginal imaging was performed to better evaluate the endometrium. 9 millimeter in thickness. No sign of endometrial mass or fluid. ED in the endometrial canal. Right ovary: 4.2 centimeter x 2.3 centimeter x 3.1 centimeter. No ovarian or adnexal masses. Normal arterial and venous blood flow. Left ovary: 3.3 centimeter x 2.3 centimeter x 2.3 centimeter. No ovarian or adnexal masses. Normal arterial and venous blood flow. Cul-de-sac: No significant free fluid. IMPRESSION: Heterogeneous myometrium. IUD in the endometrial canal. Dictated by Nilesh Gustafson MD @ 03/12/2023 6:06:08 PM (Electronically Signed)
== END 2023-03-12 16:34 | disposition home or self-care (01) ==
PROVIDERS: PCP Physician Assistant; Visit Provider Physician Assistant
DX: R10.2 Pelvic and perineal pain (principal)
CPT/HCPCS: 76830; 76856; 93976

== ENCOUNTER 2023-07-01 08:53 | Outpatient (CLI) | payer OTHER, SELFPAY | END 2023-07-01 08:54 | disposition home or self-care (01) | PROVIDERS: PCP Physician Assistant; Visit Provider Obstetrics & Gynecology | DX: N91.2 Amenorrhea, unspecified (principal); R10.2 Pelvic and perineal pain; N92.6 Irregular menstruation, unspecified; Z13.1 Encounter for screening for diabetes mellitus | CPT/HCPCS: 82947; 84443; 84702; 87086 ==

== ENCOUNTER 2023-07-28 11:00 | Outpatient (CLI) | payer OTHER, SELFPAY | END 2023-07-28 11:01 | disposition home or self-care (01) | PROVIDERS: PCP Physician Assistant; Visit Provider Obstetrics & Gynecology | DX: E03.9 Hypothyroidism, unspecified (principal); N91.2 Amenorrhea, unspecified; N80.9 Endometriosis, unspecified; N92.0 Excessive and frequent menstruation with regular cycle; Z13.6 Encounter for screening for cardiovascular disorders | CPT/HCPCS: 80061; 83001; 83498; 84146; 84270; 84402; 84403 ==